=== PATIENT | male | born 1930 | race Caucasian/White ===

== ENCOUNTER 2016-11-16 18:39 | Inpatient (IN) | payer OTHER ==
[~2016-11-16] VITALS: Ht 180.3 cm; Wt 96.5 kg
[~2016-11-16 18:39] MED LIST: ASPEC81 PO; CARV25TA PO; IPRA1AER2 INH; LSX40 PO; LVQ500 PO; MCRK20 PO; NTRGSL/4 UT; PRD20 PO; PRLSR20 PO; SIMV5TAB2 PO
[2016-11-16] MEDS ORDERED: ALBUT/IPRATROP 3MG/0.5MG NEB 3 ML VIAL INH STA (18:57)
[2016-11-16] MEDS ORDERED: WARF5TAB7 PO ×2 (19:03)
--- NOTE | 2016-11-16 19:10 | EMERGENCY ROOM VISIT NOTE ---
History Report prepared by Chaoibjt: Rosalind Duong Under the Supervision of: Dr. Niranjan Quezada M.D. First contact with patient: 18:50 Chief Complaint: NAUSEA Stated Complaint: NAUSEA/COUGH W/YELLOW SPUTUM History of Present Illness The patient is an 86 year old male who presents to the Emergency Room with complaints of worsening breathing difficulties for the past 6 to 7 hours. He was brought to the ED via EMS and is accompanied by his daughter. His daughter reports he has chronic shortness of breath due to a history of COPD, but she called him this evening, around 1700, and he told her his breathing had worsened and he felt very short of breath and nauseous. He does use inhalers at home for his COPD, but he does not wear Oxygen. His inhaler has provided minimal relief. He has also experienced a productive cough with yellow colored sputum. The patient denies any fevers or chest pain. He admits to a history of previous heart failure and notes both of his legs have been swollen in the past few days. He did take his daily water pill earlier today. 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 A total of 10 systems reviewed and were otherwise negative. Past Medical & Surgical Medical Problems: (1) Acute respiratory failure (2) CHF (congestive heart failure) (3) CHF exacerbation (4) Hypertension (5) Mitral valve disorder Family History Heart disease Social History Smoking Status: Former Smoker Alcohol Use: none Drug Use: none Marital Status: Housing Status: lives alone Occupation Status: retired Current/Historical Medications Scheduled Carvedilol (Coreg), 25 MG PO BID Furosemide (Furosemide), 40 MG PO QAM Ipratropium-Albuterol (Combivent Respimat), 1 PUFFS INH QID Nitroglycerin (Nitrostat), 0.4 MG UT PRN Omeprazole (Prilosec), 20 MG PO DAILY Potassium Chloride (Klor-Con M20), 20 MEQ PO QAM Simvastatin (Zocor), 5 MG PO QPM Warfarin Sod (Jantoven), 5 MG PO MWF Warfarin Sod (Jantoven), 2.5 MG PO DIRECTED Allergies Coded Allergies: Aspirin (Verified Adverse Reaction, Intermediate, GI ULCERATION- WHEN TAKEN WITH COUMADIN, 11/16/16) Black Pepper (Verified Adverse Reaction, Mild, 11/16/16) Lisinopril (Verified Adverse Reaction, Mild, 11/16/16) Sulfa Antibiotics (Verified Adverse Reaction, Unknown, "SULFA DRUGS": HAS TOLERATED LASIX IN PAST, 11/16/16) Physical Exam Vital Signs Date Time Temp Pulse Resp B/P (MAP) Pulse Ox O2 Delivery O2 Flow Rate FiO2 11/16/16 20:33 83 20 156/87 96 Nasal Cannula 3.0 11/16/16 19:15 95 Nasal Cannula 3.0 11/16/16 19:15 95 Nasal Cannula 3.0 11/16/16 19:02 81 11/16/16 19:00 37.1 81 24 148/82 91 Room Air Physical Exam GENERAL: Patient is in no acute distress. HEENT: No acute trauma, normocephalic atraumatic, mucous membranes moist, no nasal congestion, no scleral icterus. NECK: No stridor, no adenopathy, no meningismus, trachea is midline. LUNGS: Rhonchi and crackles bilaterally. Increased respiratory rate, mild respiratory distress, breath sounds are equal. Wet cough noted. HEART: Nearly impossible to hear any cardiac tones because of all the extra lung sounds. ABDOMEN: Soft, nontender, bowel sounds positive, no hernias, no peritonitis. EXTREMITIES: No cyanosis, moderate bilateral pedal edema without cellulitis, full range of motion of all the joints without pain or difficulty, no signs for acute trauma. NEUROLOGIC: Oriented x 3, no acute motor or sensory deficits, no focal weakness. SKIN: No rash, no jaundice, no diaphoresis. Medical Decision & Procedures ER Provider Diagnostic Interpretation: X-ray results as stated below per interpretation by me and the radiologist: CHEST ONE VIEW PORTABLE HISTORY: EVALUATE RESPIRATORY DISTRESS.DYSPNEA COMPARISON: Chest 04/17/2016. FINDINGS: The heart remains mildly enlarged. There is mild interstitial pulmonary edema and small bilateral pleural effusions. No pneumothorax. Hazy appearance to the lung bases likely represent the layering pleural fluid. Cardiac valve prosthesis is noted. IMPRESSION: Progression of the mild pulmonary edema and small bilateral pleural effusions. Electronically signed by: Sánchez Licea M.D. 11/16/2016 7:40 PM Laboratory Results 11/16/16 19:40 Red Blood Count 5.52, Mean Corpuscular Volume 92.4, Mean Corpuscular Hemoglobin 31.3, Mean Corpuscular Hemoglobin Concent 33.9, Mean Platelet Volume 9.3, Neutrophils (%) (Auto) 78.8, Lymphocytes (%) (Auto) 8.6, Monocytes (%) (Auto) 9.4, Eosinophils (%) (Auto) 2.3, Basophils (%) (Auto) 0.6, Neutrophils # (Auto) 5.20, Lymphocytes # (Auto) 0.57, Monocytes # (Auto) 0.62, Eosinophils # (Auto) 0.15, Basophils # (Auto) 0.04 11/16/16 19:40 Test 11/16/16 19:25 11/16/16 19:40 Urine Color DK YELLOW Urine Appearance CLEAR (CLEAR) Urine pH 6.5 (4.5-7.5) Urine Specific [place] 1.027 (1.000-1.030) Urine Protein TRACE (NEG) Urine Glucose (UA) NEG (NEG) Urine Ketones NEG (NEG) Urine Occult Blood NEG (NEG) Urine Nitrite NEG (NEG) Urine Bilirubin NEG (NEG) Urine Urobilinogen NEG (NEG) Urine Leukocyte Esterase NEG (NEG) Urine WBC (Auto) 1-5 /hpf (0-5) Urine RBC (Auto) 0-4 /hpf (0-4) Urine Hyaline Casts (Auto) 1-5 /lpf (0-5) Urine Epithelial Cells (Auto) 10-20 /lpf (0-5) Urine Bacteria (Auto) NEG (NEG) White Blood Count 6.60 K/uL (4.8-10.8) Red Blood Count 5.52 M/uL (4.7-6.1) Hemoglobin 17.3 g/dL (14.0-18.0) Hematocrit 51.0 % (42-52) Mean Corpuscular Volume 92.4 fL (80-100) Mean Corpuscular Hemoglobin 31.3 pg (25-34) Mean Corpuscular Hemoglobin Concent 33.9 g/dl (32-36) Platelet Count 193 K/uL (130-400) Mean Platelet Volume 9.3 fL (7.4-10.4) Neutrophils (%) (Auto) 78.8 % Lymphocytes (%) (Auto) 8.6 % Monocytes (%) (Auto) 9.4 % Eosinophils (%) (Auto) 2.3 % Basophils (%) (Auto) 0.6 % Neutrophils # (Auto) 5.20 K/uL (1.4-6.5) Lymphocytes # (Auto) 0.57 K/uL (1.2-3.4) Monocytes # (Auto) 0.62 K/uL (0.11-0.59) Eosinophils # (Auto) 0.15 K/uL (0-0.5) Basophils # (Auto) 0.04 K/uL (0-0.2) RDW Standard Deviation 46.9 fL (36.4-46.3) RDW Coefficient of Variation 13.8 % (11.5-14.5) Immature Granulocyte % (Auto) 0.3 % Immature Granulocyte # (Auto) 0.02 K/uL (0.00-0.02) Prothrombin Time 35.4 SECONDS (9.0-12.0) Prothromb Time International Ratio 3.2 (0.9-1.1) Activated Partial Thromboplast Time 37.4 SECONDS (21.0-31.0) Partial Thromboplastin Ratio 1.4 Anion Gap 7.0 mmol/L (3-11) Est Creatinine Clear Calc Drug Dose 54.2 ml/min Estimated GFR () 63.5 Estimated GFR (Non- 54.8 BUN/Creatinine Ratio 16.1 (10-20) Lactic Acid Level 1.0 mmol/L (0.4-2.0) Calcium Level 7.9 mg/dl (8.5-10.1) Magnesium Level 2.0 mg/dl (1.8-2.4) Total Bilirubin 1.3 mg/dl (0.2-1) Aspartate Amino Transf (AST/SGOT) 40 U/L (15-37) Alanine Aminotransferase (ALT/SGPT) 28 U/L (12-78) Alkaline Phosphatase 82 U/L (45-117) Troponin I 0.020 ng/ml (0-0.045) Pro-B-Type Natriuretic Peptide 1164 pg/ml (0-1800) Total Protein 5.7 gm/dl (6.4-8.2) Albumin 2.4 gm/dl (3.4-5.0) Globulin 3.3 gm/dl (2.5-4.0) Albumin/Globulin Ratio 0.7 (0.9-2) Laboratory results reviewed by me. Medications Administered Medications (Trade) Dose Ordered Sig/Meño Route Start Time Stop Time Status Last Admin Dose Admin Albuterol/ Ipratropium (Duoneb) 3 ml NOW STAT INH 11/16/16 18:57 11/16/16 19:01 DC 11/16/16 19:20 3 ML Furosemide (Lasix Inj) 40 mg NOW STAT IV 11/16/16 19:46 11/16/16 19:47 DC 11/16/16 20:06 40 MG Ceftriaxone Sodium (Rocephin Inj) 1 gm NOW STAT IV 11/16/16 20:01 11/16/16 20:02 DC 11/16/16 20:06 1 GM ECG Indication: SOB/dyspnea Rate (beats per minute): 83 Rhythm: atrial flutter Findings: PVC, no acute ischemic change Change: no significant change (No significant change when compared to EKG from 04/15/2016) ED Course 1853: The patient was evaluated in room B2. A complete history and physical exam was performed. 1856: DuoNeb 3 ml INH. 1945: Lasix 40 mg IV. 2000: Rocephin 1 gm IV. 2019: I reevaluated the patient. He is resting comfortably. I discussed my recommendation that he remain in the hospital for further evaluation and management and he and his daughter verbalized complete understanding and agreement. 2044: I discussed the patients case with Dr. Rios, [facility] [place] Hospitalist. The patient will be further evaluated. Medical Decision Medication Reconciliation: I attest that I have personally reviewed the patient' s current medication list. Blood Pressure Screening: Patient was found to have a mildly elevated blood pressure and was referred to their primary doctor for recheck and further treatment. The differential diagnoses considered include pneumonia, bronchitis, exacerbation of COPD, anemia, electrolyte imbalance, CHF and cardiac ischemia. There is no leukocytosis or concerning anemia. Renal panel testing does not show renal failure or significant electrolyte abnormality. EKG shows atrial flutter, no acute ischemia. Cardiac enzyme testing times one is not consistent with acute cardiac injury. BNP is not elevated. Chest x-ray does show CHF, there was no pneumonia or pneumothorax. Blood cultures are pending. INR was elevated consistent with his Coumadin use. Urinalysis does not show infection. Lactic acid level is not elevated making sepsis less likely. The patient was in some respiratory distress when he first arrived. He had crackles consistent with heart failure. He received a DuoNeb because of his underlying COPD, he was given IV Lasix, he received IV ceftriaxone as antibiotic coverage. The patient is feeling improved, he has diuresed. Given his age, given his respiratory distress, given his presentation, admission/observation is warranted. He requires further diuresis and care for his COPD. I did speak to the patient and to case management. The on-call hospitalist was consulted. I spoke to the patient's daughter as well, she was at the bedside. Consults Time Called: 2023 Consulting Physician: Dr. Rios, [facility] [place] Hospitalist Returned Call: 2044 I discussed the patients case with Dr. Rios, [facility] [place] Hospitalist. The patient will be further evaluated. Impression Primary Impression: SOB (shortness of breath) Additional Impressions: CHF (congestive heart failure) COPD exacerbation Scribe Attestation The scribe's documentation has been prepared under my direction and personally reviewed by me in its entirety. I confirm that the note above accurately reflects all work, treatment, procedures, and medical decision making performed by me. Departure Information Dispostion Being Evaluated By Hospitalist Sugey Franklin M.D. (PCP) Patient Instructions My [facility] Problem Qualifiers
[2016-11-16 19:41] LABS: URINE APPEARANCE CLEAR (CLEAR); URINE BILIRUBIN NEG (NEG); URINE COLOR DK YELLOW; URINE NITRITE NEG (NEG); URINE PH 6.5 (4.5-7.5); URINE SPECIFIC GRAVITY 1.027 (1.000-1.030); UROBILINOGEN NEG (NEG); ZZUR CULT IF INDIC CLEAN CATCH NO
--- NOTE | 2016-11-16 19:41 | DIAGNOSTIC IMAGING REPORT ---
CHEST ONE VIEW PORTABLE HISTORY: EVALUATE RESPIRATORY DISTRESS.DYSPNEA COMPARISON: Chest 04/17/2016. FINDINGS: The heart remains mildly enlarged. There is mild interstitial pulmonary edema and small bilateral pleural effusions. No pneumothorax. Hazy appearance to the lung bases likely represent the layering pleural fluid. Cardiac valve prosthesis is noted. IMPRESSION: Progression of the mild pulmonary edema and small bilateral pleural effusions. Electronically signed by: Sánchez Licea M.D. 11/16/2016 7:40 PM Dictated Date/Time: 11/16/2016 7:39 PM
[2016-11-16 19:42] LABS: MANUAL MICROSCOPIC REQUIRED? NO; REVIEW REQ? NO
[2016-11-16] MEDS ORDERED: FUROSEMIDE 40 MG/4 ML VIAL IV STA (19:46)
[2016-11-16 19:55] LABS: BASO % 0.6 %; BASO ABS # 0.04 K/uL (0-0.2); COMPLETE YES; EOS % 2.3 %; IG% 0.3 %; LYMPH % 8.6 %; LYMPH ABS # 0.57 K/uL (1.2-3.4); MEAN CELL VOLUME 92.4 fL (80-100); MEAN CORPUSCULAR HEMOGLOBIN 31.3 pg (25-34); MEAN CORPUSCULAR HGB CONC 33.9 g/dl (32-36); MEAN PLATELET VOLUME 9.3 fL (7.4-10.4); MONO % 9.4 %; NEUT % 78.8 %; PLATELET COUNT 193 K/uL (130-400); RED BLOOD COUNT 5.52 M/uL (4.7-6.1)
[2016-11-16] MEDS ORDERED: CEFTRIAXONE SOD INJ 1 GM ADDVIAL IV STA (20:01)
[2016-11-16 20:06] LABS: INR 3.2 (0.9-1.1); PARTIAL THROMBOPLASTIN RATIO 1.4; PROTHROMBIN TIME (PATIENT) 35.4 SECONDS (9.0-12.0)
[2016-11-16 20:11] LABS: BUN/CREATININE RATIO 16.1 (10-20); CALCIUM 7.9 mg/dl (8.5-10.1); CREATININE 1.2 mg/dl (0.60-1.40); POTASSIUM 5.3 mmol/L (3.5-5.1)
[2016-11-16 20:16] LABS: ALB/GLOB RATIO 0.7 (0.9-2)
[2016-11-16] MEDS ORDERED: ZOLPIDEM TARTRATE 5 MG TAB PO PRN (22:00)
[2016-11-16] MEDS ORDERED: ACETAMINOPHEN 325 MG TAB PO PRN (22:00)
[2016-11-16] MEDS ORDERED: NITROGLYCERIN 0.4 MG SL PER TAB CHARGE UT SCH (22:00)
--- NOTE | 2016-11-16 22:00 | History and Physical ---
History & Physical Date & Time of Service: Nov 16, 2016 at 21:59 Chief Complaint: Nausea/Cough W/Yellow Sputum Primary Care Physician: Sugey Fields M.D. History of Present Illness Source: patient The patient is a 86-year-old male presents emergency department with acute onset of worsening shortness of breath over the past 7 hours prior to arrival. His daughter reports that his chronic shortness of breath secondary to COPD, but he reported to her that his breathing was worse and he felt nauseous around 1700 hrs. this evening. He has had a cough productive of yellow sputum. He has noted worsening swelling was legs in the past few days, and has been diagnosed with congestive heart failure in the past. He did take his Lasix 40 mg this morning as directed. He has not had any recent travel, or any sick exposures. Past Medical/Surgical History Medical Problems: (1) CHF (congestive heart failure) Status: Chronic (2) Hypertension Status: Chronic (3) Mitral valve disorder Status: Chronic Family History Heart disease Social History Smoking Status: Former Smoker Smokeless Tobacco Use: No Drug Use: none Marital Status: Housing status: lives alone Occupational Status: retired Immunizations History of Influenza Vaccine: Yes Influenza Vaccine Date: Apr 03, 2012 History of Tetanus Vaccine?: HAD IN 2011 History of Pneumococcal: HAD IN THE PAST History of Hepatitis B Vaccine: Unknown Multi-Drug Resistant Organisms History of MDRO: No Allergies Coded Allergies: Aspirin (Verified Adverse Reaction, Intermediate, GI ULCERATION- WHEN TAKEN WITH COUMADIN, 11/16/16) Black Pepper (Verified Adverse Reaction, Mild, 11/16/16) Lisinopril (Verified Adverse Reaction, Mild, 11/16/16) Sulfa Antibiotics (Verified Adverse Reaction, Unknown, "SULFA DRUGS": HAS TOLERATED LASIX IN PAST, 11/16/16) Home Medications Scheduled Carvedilol (Coreg), 25 MG PO BID Furosemide (Furosemide), 40 MG PO QAM Ipratropium-Albuterol (Combivent Respimat), 1 PUFFS INH QID Nitroglycerin (Nitrostat), 0.4 MG UT PRN Omeprazole (Prilosec), 20 MG PO DAILY Potassium Chloride (Klor-Con M20), 20 MEQ PO QAM Simvastatin (Zocor), 5 MG PO QPM Warfarin Sod (Jantoven), 5 MG PO MWF Warfarin Sod (Jantoven), 2.5 MG PO DIRECTED Review of Systems The patient denies chest pain, palpitations, sore throat, fevers, chills, sweats , weight change, vomiting, abdominal pain, pelvic pain, blood in urine or stool , dysuria, urinary frequency or urgency, lightheadedness, dizziness, headache, memory loss, rash, abnormal bruising or bleeding, imbalance, focal weakness, numbness or tingling in arms or legs, arthralgias or myalgias, back or neck pain , night sweats. The review of systems is otherwise negative other than for that already noted above, and at least 10 systems have been reviewed. Physical Exam Vital Signs Date Time Temp Pulse Resp B/P (MAP) Pulse Ox O2 Delivery O2 Flow Rate FiO2 11/16/16 20:33 83 20 156/87 96 Nasal Cannula 3.0 11/16/16 19:15 95 Nasal Cannula 3.0 11/16/16 19:15 95 Nasal Cannula 3.0 11/16/16 19:02 81 11/16/16 19:00 37.1 81 24 148/82 91 Room Air The patient is awake, well-developed and adequately nourished, alert and oriented 3, normocephalic and atraumatic, lying in bed and in no acute distress. HEENT--PERRL, EOMI, mucous membranes and oropharynx dry. Neck--supple, no JVD or bruits, thyroid normal, trachea midline, no adenopathy. Heart--normal S1 and S2, no extra beats, no murmurs, rubs or gallops. Lungs--decreased breath sounds at the bases bilaterally, no respiratory distress , no accessory muscle use. Abdomen--normal bowel sounds and soft, nontender and nondistended, no hernias or masses, no organomegaly. Extremities--no cyanosis, clubbing. There is bilaterally pretibially 1+ pitting Edema. There are good distal pulses b/l. Dermatologic--normal skin turgor, normal color, warm and dry, no abnormal lymph nodes, no rash. Neurologic--cranial nerves II through XII grossly intact. Rheumatologic--normal range of motion, nontender, muscles and joints. Psychiatric--normal affect. Diagnostics Laboratory Results Results Past 24 Hours Test 11/16/16 19:25 11/16/16 19:40 Range/Units Urine Color DK YELLOW Urine Appearance CLEAR CLEAR Urine pH 6.5 4.5-7.5 Urine Specific Uriah 1.027 1.000-1.030 Urine Protein TRACE NEG Urine Glucose (UA) NEG NEG Urine Ketones NEG NEG Urine Occult Blood NEG NEG Urine Nitrite NEG NEG Urine Bilirubin NEG NEG Urine Urobilinogen NEG NEG Urine Leukocyte Esterase NEG NEG Urine WBC (Auto) 1-5 0-5 /hpf Urine RBC (Auto) 0-4 0-4 /hpf Urine Hyaline Casts (Auto) 1-5 0-5 /lpf Urine Epithelial Cells (Auto) 10-20 0-5 /lpf Urine Bacteria (Auto) NEG NEG White Blood Count 6.60 4.8-10.8 K/uL Red Blood Count 5.52 4.7-6.1 M/uL Hemoglobin 17.3 14.0-18.0 g/dL Hematocrit 51.0 42-52 % Mean Corpuscular Volume 92.4 80-100 fL Mean Corpuscular Hemoglobin 31.3 25-34 pg Mean Corpuscular Hemoglobin Concent 33.9 32-36 g/dl Platelet Count 193 130-400 K/uL Mean Platelet Volume 9.3 7.4-10.4 fL Neutrophils (%) (Auto) 78.8 % Lymphocytes (%) (Auto) 8.6 % Monocytes (%) (Auto) 9.4 % Eosinophils (%) (Auto) 2.3 % Basophils (%) (Auto) 0.6 % Neutrophils # (Auto) 5.20 1.4-6.5 K/uL Lymphocytes # (Auto) 0.57 1.2-3.4 K/uL Monocytes # (Auto) 0.62 0.11-0.59 K/uL Eosinophils # (Auto) 0.15 0-0.5 K/uL Basophils # (Auto) 0.04 0-0.2 K/uL RDW Standard Deviation 46.9 36.4-46.3 fL RDW Coefficient of Variation 13.8 11.5-14.5 % Immature Granulocyte % (Auto) 0.3 % Immature Granulocyte # (Auto) 0.02 0.00-0.02 K/uL Prothrombin Time 35.4 9.0-12.0 SECONDS Prothromb Time International Ratio 3.2 0.9-1.1 Activated Partial Thromboplast Time 37.4 21.0-31.0 SECONDS Partial Thromboplastin Ratio 1.4 Sodium Level 144 136-145 mmol/L Potassium Level 5.3 3.5-5.1 mmol/L Chloride Level 112 98-107 mmol/L Carbon Dioxide Level 25 21-32 mmol/L Anion Gap 7.0 3-11 mmol/L Blood Urea Nitrogen 19 7-18 mg/dl Creatinine 1.20 0.60-1.40 mg/dl Est Creatinine Clear Calc Drug Dose 54.2 ml/min Estimated GFR () 63.5 Estimated GFR (Non- 54.8 BUN/Creatinine Ratio 16.1 10-20 Random Glucose 96 70-99 mg/dl Lactic Acid Level 1.0 0.4-2.0 mmol/L Calcium Level 7.9 8.5-10.1 mg/dl Magnesium Level 2.0 1.8-2.4 mg/dl Total Bilirubin 1.3 0.2-1 mg/dl Aspartate Amino Transf (AST/SGOT) 40 15-37 U/L Alanine Aminotransferase (ALT/SGPT) 28 12-78 U/L Alkaline Phosphatase 82 45-117 U/L Troponin I 0.020 0-0.045 ng/ml Pro-B-Type Natriuretic Peptide 1164 0-1800 pg/ml Total Protein 5.7 6.4-8.2 gm/dl Albumin 2.4 3.4-5.0 gm/dl Globulin 3.3 2.5-4.0 gm/dl Albumin/Globulin Ratio 0.7 0.9-2 Microbiology Results 11/16/16 Blood Culture, Received Pending 11/16/16 Blood Culture, Received Pending Diagnostic Radiology Patient Name: GENE WOLFE Unit Number: [id number] Dictated: 11/16/161938 Transcribed: 11/16/161938 [employer] Printed Date/Time: [~ rep prt dt]/[~ rep prt tm] [~ rep ct labl] - [~ rep ct ivnm] [facility] [place] [place] [address] Dictated: 11/16/161938 Transcribed: 11/16/161938 [employer] Printed Date/Time: [~ rep prt dt]/[~ rep prt tm] [~ rep ct labl] - [~ rep ct ivnm] [~ rep ct add3]] CHEST ONE VIEW PORTABLE HISTORY: EVALUATE RESPIRATORY DISTRESS.DYSPNEA COMPARISON: Chest 04/17/2016. FINDINGS: The heart remains mildly enlarged. There is mild interstitial pulmonary edema and small bilateral pleural effusions. No pneumothorax. Hazy appearance to the lung bases likely represent the layering pleural fluid. Cardiac valve prosthesis is noted. IMPRESSION: Progression of the mild pulmonary edema and small bilateral pleural effusions. Electronically signed by: Sánchez Licea M.D. 11/16/2016 7:40 PM Dictated Date/Time: 11/16/2016 7:39 PM The status of this report is Signed. Draft = Not yet reviewed or approved by Radiologist. Signed = Reviewed and approved by Radiologist. <AttendingPhy></AttendingPhy> <FamilyPhy>Sugey Fields M.D.</FamilyPhy> <PrimaryPhy>Sugey Fields M.D.</PrimaryPhy> <UnitNumber>[id number]</ UnitNumber> <VisitNumber>[id number]</VisitNumber> <PatientName>GENE WOLFE </PatientName> <DateOfBirth>1930</DateOfBirth> <Location>[facility]</Location> <ServiceDate>11/16/16</ServiceDate> <MNE>ESINDI</MNE> <OrderingPhy>Niranjan Quezada M.D.</OrderingPhy> <OrderingPhyMNE>f rep ord dr marrero</OrderingPhyMNE> < DictatingPhyMNE>f rep dict dr marrero</DictatingPhyMNE> <CCListMNE>f rep ct mne</ CCListMNE> <AdmittingPhyMNE>f pt admit dr marrero</AdmittingPhyMNE> <AttendingPhyMNE >f pt attend dr marrero</AttendingPhyMNE> <ConsultingPhyMNE>f pt consult dr marrero</ConsultingPhyMNE> <FamilyPhyMNE>f pt fam dr marrero</FamilyPhyMNE> <OtherPhyMNE>f pt other dr marrero</OtherPhyMNE> < PrimaryPhyMNE>f pt prim care dr marrero</PrimaryPhyMNE> <ReferringPhyMNE>f pt referring dr marrero</ReferringPhyMNE> EKG EKG shows atrial flutter with variable block at 83 bpm, PVCs or aberrantly conducted beats, no change noted compared to 04/15/2016. Impression Assessment and Plan Right lower lobe pneumonia--the patient will be placed on ceftriaxone 1 g IV daily, levofloxacin 500 mg IV every 24 hours, guaifenesin extended release 600 mg by mouth twice a day, Solu-Medrol 30 mg IV every 8 hours and Xopenex/ Atrovent nebulizer every 6 hours while awake and every 2 hours when necessary. Bilateral pleural effusions/CHF/hypertension/mitral valve disorder/atrial flutter-continue carvedilol 25 mg by mouth twice a day, furosemide 40 mg by mouth every morning, potassium chloride 20 mEq by mouth every morning. Present INR is 3.2. We will resume warfarin at 3 mg by mouth daily on November 18, allowing for some increase in INR due to antibiotics. Hyperlipidemia--continue simvastatin 5 mg by mouth every afternoon. GERD--change omeprazole 20 mg by mouth daily to pantoprazole 40 mg by mouth daily. Level of Care Telemetry Advanced Directives Existing Advance Directive: No Existing Living Will: No Existing Power of Organ Grinder: No Resuscitation Status FULL RESUSCITATION VTE Prophylaxis VTE Risk Assessment Done? Y/N: Yes Risk Level: Moderate Given or contraindicated: Warfarin (Coumadin)
[2016-11-16] MEDS ORDERED: LEVALBUTEROL 1.25MG/0.5ML NEB INH PRN (22:30)
[2016-11-16] MEDS ORDERED: IPRATROPIUM BROMIDE NEB SOLN 0.02% 2.5 ML VIAL INH PRN (22:30)
[2016-11-16 23:02] VITALS: BP 157/80; PULSE 71; TEMP 36.7; O2SAT 96; Ht 180.3 cm; Wt 96.5 kg
[2016-11-16] MEDS: METHYLPREDNISOLONE IV 30 MG in SYRINGE 0 ML IV SCH (23:37)
[2016-11-17] VITALS (10 sets, daily range): BP systolic 117–146; BP diastolic 65–75; PULSE 61–84; TEMP 36.8–37.5; O2SAT 94–97
[2016-11-17] MEDS ORDERED: LEVOFLOXACIN / D5W 500 MG in PREMIXED IN D5W 100 ML IV SCH
[2016-11-17] MEDS ORDERED: LEVALBUTEROL/IPRATROPIUM NEB INH SCH (03:00)
[2016-11-17] MEDS: IPRATROPIUM BROMIDE NEB SOLN 0.02% 2.5 ML VIAL INH SCH ×4 (03:25→18:41)
[2016-11-17] MEDS: LEVALBUTEROL 1.25MG/0.5ML NEB INH SCH ×4 (03:25→18:41)
[2016-11-17 05:58] LABS: BASO % 0.4 %; BASO ABS # 0.02 K/uL (0-0.2); COMPLETE YES; HEMATOCRIT 46.9 % (42-52); IG% 0.4 %; LYMPH % 10.5 %; LYMPH ABS # 0.58 K/uL (1.2-3.4); MEAN CELL VOLUME 91.6 fL (80-100); MEAN CORPUSCULAR HEMOGLOBIN 31.4 pg (25-34); MEAN CORPUSCULAR HGB CONC 34.3 g/dl (32-36); MEAN PLATELET VOLUME 9.2 fL (7.4-10.4); MONO % 4.4 %; NEUT % 84.3 %; PLATELET COUNT 151 K/uL (130-400); RED BLOOD COUNT 5.12 M/uL (4.7-6.1); WHITE BLOOD COUNT 5.51 K/uL (4.8-10.8)
[2016-11-17 06:14] LABS: INR 2.9 (0.9-1.1); PARTIAL THROMBOPLASTIN RATIO 1.5
[2016-11-17] MEDS: METHYLPREDNISOLONE IV 30 MG in SYRINGE 0 ML IV SCH ×2 (06:42→14:26)
[2016-11-17 06:43] LABS: BUN/CREATININE RATIO 20.3 (10-20); CALCIUM 7.7 mg/dl (8.5-10.1); POTASSIUM 3.9 mmol/L (3.5-5.1)
[2016-11-17] MEDS: GUAIFENESIN 600 MG TABCR PO SCH ×2 (08:01→20:09)
[2016-11-17] MEDS: PANTOprazole SOD 40 MG TAB PO SCH (08:01)
[2016-11-17] MEDS: POTASSIUM CHLORIDE 20 MEQ TABCR PO SCH ×2 (08:02→10:13)
[2016-11-17] MEDS: CARVEDILOL 25 MG TAB PO SCH ×2 (08:03→20:09)
[2016-11-17] MEDS: FUROSEMIDE 40 MG TAB PO SCH (08:04)
--- NOTE | 2016-11-17 08:34 | Family Medicine Progress Note ---
Progress Note Date of Service Nov 17, 2016. Subjective Pt evaluation today including: conversation w/ patient, physical exam, chart review Pain: none PO Intake: good Voiding: no voiding problems Patient with no acute events overnight Was admitted for 1 day history of shortness of breath, dry cough and leg swelling that has been occurring for several months He is receiving AB and received a dose of lasix in the ED yesterday. He says that his shortness of breath, leg swelling and cough have all improved and he is feeling much better. He denies any fevers, chills, night sweats, chest pain, palpitations, diarrhea, constipation, abdominal pain, nausea, vomiting I question if this is a bilateral pneumonia as patient has never been febrile and has not had an elevated WCC. I feel like this is more likely to be a mix of worsening CHF or a mild COPD exacerbation. Additional Comments: please see above for ROS Medications Current Inpatient Medications Medications (Trade) Dose Ordered Sig/Meño Route Start Time Stop Time Status Last Admin Dose Admin Acetaminophen (Tylenol Tab) 650 mg Q4H PRN PO 11/16/16 22:00 12/16/16 21:59 Zolpidem Tartrate (Ambien Tab) 5 mg HSZ PRN PO 11/16/16 22:00 12/16/16 21:59 Carvedilol (Coreg Tab) 25 mg BID PO 11/17/16 09:00 12/17/16 08:59 11/17/16 08:03 25 MG Furosemide (Lasix Tab) 40 mg QAM PO 11/17/16 09:00 12/17/16 08:59 11/17/16 08:04 40 MG Nitroglycerin (Nitrostat Tab) 0.4 mg PRN UT 11/16/16 22:00 12/16/16 21:59 Potassium Chloride (Klor-Con Tab) 20 meq QAM PO 11/17/16 09:00 12/17/16 08:59 Simvastatin (Zocor Tab) 5 mg QPM PO 11/17/16 21:00 12/17/16 20:59 Pantoprazole Sodium (Protonix Tab) 40 mg QAM PO 11/17/16 09:00 12/17/16 08:59 11/17/16 08:01 40 MG Methylprednisolone Sodium Succinate 30 mg/Syringe 0.48 ml @ 1.5 mls/min Q8H IV 11/16/16 22:00 12/16/16 21:59 11/17/16 06:42 1.5 MLS/MIN Ceftriaxone Sodium 1 gm/ Dextrose 50 ml @ 100 mls/hr Q24H IV 11/17/16 20:00 11/22/16 20:29 Levofloxacin 500 mg/Prmx 100 ml @ 100 mls/hr Q24H IV 11/17/16 00:00 11/24/16 00:00 11/16/16 23:37 100 MLS/HR Guaifenesin (Mucinex Contr Rel Tab) 600 mg Q12 PO 11/17/16 09:00 12/17/16 08:59 11/17/16 08:01 600 MG Ondansetron HCl (Zofran Inj) 4 mg Q6H PRN IV 11/16/16 22:00 12/16/16 21:59 Ipratropium [place] (Atrovent 0.02% 0.5MG/2.5ML Neb) 0.5 mg Q6R INH 11/17/16 03:00 12/17/16 02:59 11/17/16 07:19 0.5 MG Levalbuterol (Xopenex 1.25MG/ 0.5ML Neb) 1.25 mg Q6R INH 11/17/16 03:00 12/17/16 02:59 11/17/16 07:19 1.25 MG Ipratropium [place] (Atrovent 0.02% 0.5MG/2.5ML Neb) 0.5 mg Q2H PRN INH 11/16/16 22:30 12/16/16 22:29 Levalbuterol (Xopenex 1.25MG/ 0.5ML Neb) 1.25 mg Q2H PRN INH 11/16/16 22:30 12/16/16 22:29 Warfarin Sodium (Coumadin Tab) 3 mg DAILY@16 PO 11/17/16 16:00 12/17/16 15:59 Future Hold Objective Vital Signs Date Time Temp Pulse Resp B/P (MAP) Pulse Ox O2 Delivery O2 Flow Rate FiO2 11/17/16 07:19 72 16 97 Nasal Cannula 2.0 11/17/16 07:10 37.1 76 16 117/74 (88) 94 Nasal Cannula 3.0 11/17/16 04:14 37.5 84 18 122/70 (87) 94 11/17/16 04:00 Nasal Cannula 2.0 Humidified Oxygen 11/17/16 03:25 71 18 95 Nasal Cannula 2.0 11/16/16 23:59 Nasal Cannula 2.0 Humidified Oxygen 11/16/16 23:02 36.7 71 20 157/80 96 Nasal Cannula 3.0 11/16/16 22:41 91 20 193/90 95 11/16/16 22:30 91 20 193/90 95 Room Air 11/16/16 20:33 83 20 156/87 96 Nasal Cannula 3.0 11/16/16 19:15 95 Nasal Cannula 3.0 11/16/16 19:15 95 Nasal Cannula 3.0 11/16/16 19:02 81 11/16/16 19:00 37.1 81 24 148/82 91 Room Air Physical Exam General Appearance: WD/WN, no apparent distress Eyes: normal inspection, PERRL, EOMI ENT: hearing grossly normal, pharynx normal Neck: no adenopathy, no JVD, trachea midline Respiratory/Chest: lungs clear, no respiratory distress, no accessory muscle use Cardiovascular: no murmur, + irregularly irregular Abdomen: normal bowel sounds, soft, + pertinent finding (midline abdominal scar ) Extremities: non-tender, no calf tenderness, normal capillary refill, + pertinent finding (pitting edema up to the mid [place] bilaterally, lower legs bilaterally with tough skin bilaterally and fungal toe infection bilaterally) Neurologic/Psychiatric: alert, normal mood/affect, oriented x 3 Laboratory Results Results Past 24 Hours Test 11/16/16 19:25 11/16/16 19:40 11/17/16 05:40 11/17/16 14:56 Range/Units Urine Color DK YELLOW Urine Appearance CLEAR CLEAR Urine pH 6.5 4.5-7.5 Urine Specific [place] 1.027 1.000-1.030 Urine Protein TRACE NEG Urine Glucose (UA) NEG NEG Urine Ketones NEG NEG Urine Occult Blood NEG NEG Urine Nitrite NEG NEG Urine Bilirubin NEG NEG Urine Urobilinogen NEG NEG Urine Leukocyte Esterase NEG NEG Urine WBC (Auto) 1-5 0-5 /hpf Urine RBC (Auto) 0-4 0-4 /hpf Urine Hyaline Casts (Auto) 1-5 0-5 /lpf Urine Epithelial Cells (Auto) 10-20 0-5 /lpf Urine Bacteria (Auto) NEG NEG White Blood Count 6.60 5.51 4.8-10.8 K/uL Red Blood Count 5.52 5.12 4.7-6.1 M/uL Hemoglobin 17.3 16.1 14.0-18.0 g/dL Hematocrit 51.0 46.9 42-52 % Mean Corpuscular Volume 92.4 91.6 80-100 fL Mean Corpuscular Hemoglobin 31.3 31.4 25-34 pg Mean Corpuscular Hemoglobin Concent 33.9 34.3 32-36 g/dl Platelet Count 193 151 130-400 K/uL Mean Platelet Volume 9.3 9.2 7.4-10.4 fL Neutrophils (%) (Auto) 78.8 84.3 % Lymphocytes (%) (Auto) 8.6 10.5 % Monocytes (%) (Auto) 9.4 4.4 % Eosinophils (%) (Auto) 2.3 0.0 % Basophils (%) (Auto) 0.6 0.4 % Neutrophils # (Auto) 5.20 4.65 1.4-6.5 K/uL Lymphocytes # (Auto) 0.57 0.58 1.2-3.4 K/uL Monocytes # (Auto) 0.62 0.24 0.11-0.59 K/uL Eosinophils # (Auto) 0.15 0.00 0-0.5 K/uL Basophils # (Auto) 0.04 0.02 0-0.2 K/uL RDW Standard Deviation 46.9 46.6 36.4-46.3 fL RDW Coefficient of Variation 13.8 13.9 11.5-14.5 % Immature Granulocyte % (Auto) 0.3 0.4 % Immature Granulocyte # (Auto) 0.02 0.02 0.00-0.02 K/uL Prothrombin Time 35.4 32.0 9.0-12.0 SECONDS Prothromb Time International Ratio 3.2 2.9 0.9-1.1 Activated Partial Thromboplast Time 37.4 39.1 21.0-31.0 SECONDS Partial Thromboplastin Ratio 1.4 1.5 Sodium Level 144 144 136-145 mmol/L Potassium Level 5.3 3.9 3.5-5.1 mmol/L Chloride Level 112 111 98-107 mmol/L Carbon Dioxide Level 25 25 21-32 mmol/L Anion Gap 7.0 8.0 3-11 mmol/L Blood Urea Nitrogen 19 20 7-18 mg/dl Creatinine 1.20 1.00 0.60-1.40 mg/dl Est Creatinine Clear Calc Drug Dose 54.2 63.9 ml/min Estimated GFR () 63.5 79.2 Estimated GFR (Non- 54.8 68.3 BUN/Creatinine Ratio 16.1 20.3 10-20 Random Glucose 96 109 70-99 mg/dl Lactic Acid Level 1.0 0.4-2.0 mmol/L Calcium Level 7.9 7.7 8.5-10.1 mg/dl Magnesium Level 2.0 2.0 1.8-2.4 mg/dl Total Bilirubin 1.3 0.2-1 mg/dl Aspartate Amino Transf (AST/SGOT) 40 15-37 U/L Alanine Aminotransferase (ALT/SGPT) 28 12-78 U/L Alkaline Phosphatase 82 45-117 U/L Troponin I 0.020 0-0.045 ng/ml Pro-B-Type Natriuretic Peptide 1164 0-1800 pg/ml Total Protein 5.7 6.4-8.2 gm/dl Albumin 2.4 3.4-5.0 gm/dl Globulin 3.3 2.5-4.0 gm/dl Albumin/Globulin Ratio 0.7 0.9-2 Test 11/17/16 15:25 Range/Units Troponin I 0.062 0-0.045 ng/ml Microbiology Results 11/16/16 Blood Culture, Received Pending 11/16/16 Blood Culture, Received Pending Assessment and Plan The patient is a 86-year-old male with a PMH of CABG, COPD, Atrial flutter, HTN and Hyperlipidemia who presented to the emergency department with acute onset of worsening shortness of breath over the past 7 hours prior to arrival. Patient has remained afebrile and has no WCC. Therefore unlikely to be pneumonia and we stopped antibiotics and steroids. Most likely a CHF exacerbation due to clinic improvement so quickly Resident Physician Supervision Note: I interviewed and examined the patient. Discussed with Dr. Mcguire and agree with findings and plan as documented in the note. Any exceptions or clarifications are listed here: None Documented By: Robert Gina Congestive Heart Failure - CXR showed bilateral pleural effusions - Given 40mg IV furosemide - Continue carvedilol and furosemide PO, started valsartan 80mg daily - Monitor I/O's - May need echo - EKG showed T wave inversions--> troponins ordered, will follow - potassium chloride 20meq by mouth every morning ---appears that CHF was the main reason for admission - cautiously stopping abx and steroids and following Atrial flutter - continue carvedilol 25 mg bid - Continue warfarin 3mg - INR 2.9, continue to monitor -rate controlled continue anticoagulation CAD with EKG changes - EKG showed T wave inversion--> troponins ordered, will follow - patient currently asymptomatic - atorvastatin 40mg started (will check lipid panel) - started clopidogrel -totally asymptomatic suspect it's all downstream small vessel either baseline or demand ischemia from the hypoxia from current CHF. O2, beta ivy, anticoagulated, add plavix since can't take asa, no urgent need for cath but with dynamic EKG changes and now sl trop will ask opinion on cath ?soon, no sx no need for morphine right now; add ARB, continue prn nitrate, upgrade statin to atorva 40mg for better plaque stabilization, check lipids to better assess needed dose COPD - continue atrovent and xopenex - O2 via nasal cannula Hyperlipidemia - atorvastatin 40mg PO - will check lipids GERD - pantoprazole 40mg PO Dispo - PT/OT Full Code otherwise as above Continued [facility] stay due to: multiple IV medications needed
[2016-11-17] MEDS ORDERED: CLOPIDOGREL BISULFATE 75 MG TAB PO ONE (16:00)
[2016-11-17] MEDS ORDERED: VALSARTAN 80 MG TAB PO ONE (16:00)
[2016-11-17] MEDS: ONDANSETRON INJ 2 MG/ML 2 ML VIAL IV PRN ×2 (17:38→23:01)
[2016-11-17] MEDS ORDERED: CEFTRIAXONE SOD INJ 1 GM in DEXTROSE 5% ADD-VANTAGE 50ML 50 ML IV SCH (20:00)
[2016-11-17] MEDS ORDERED: SIMVASTATIN 5 MG TAB PO SCH (21:00)
[2016-11-18] VITALS (11 sets, daily range): BP systolic 106–131; BP diastolic 67–79; PULSE 58–78; TEMP 36.2–36.6; O2SAT 90–98
[2016-11-18] MEDS: LEVALBUTEROL 1.25MG/0.5ML NEB INH SCH ×2 (02:14→07:35)
[2016-11-18] MEDS: IPRATROPIUM BROMIDE NEB SOLN 0.02% 2.5 ML VIAL INH SCH ×2 (02:14→07:35)
[2016-11-18 04:36] LABS: COMPLETE YES; HEMATOCRIT 47.2 % (42-52); IG% 0.3 %; LYMPH % 7.6 %; MEAN CELL VOLUME 91.3 fL (80-100); MEAN CORPUSCULAR HEMOGLOBIN 31.1 pg (25-34); MEAN CORPUSCULAR HGB CONC 34.1 g/dl (32-36); MEAN PLATELET VOLUME 9.3 fL (7.4-10.4); MONO % 7.3 %; NEUT % 84.8 %; PLATELET COUNT 161 K/uL (130-400); RED BLOOD COUNT 5.17 M/uL (4.7-6.1)
[2016-11-18 04:47] LABS: INR 2.2 (0.9-1.1); PROTHROMBIN TIME (PATIENT) 24.6 SECONDS (9.0-12.0)
[2016-11-18 04:53] LABS: BUN/CREATININE RATIO 25.8 (10-20); CALCIUM 7.4 mg/dl (8.5-10.1); POTASSIUM 4.3 mmol/L (3.5-5.1)
[2016-11-18 05:03] LABS: CHOLESTEROL/HDL RATIO 2.9
[2016-11-18] MEDS: GUAIFENESIN 600 MG TABCR PO SCH ×2 (07:49→20:02)
[2016-11-18] MEDS: PANTOprazole SOD 40 MG TAB PO SCH (07:49)
[2016-11-18] MEDS: CARVEDILOL 25 MG TAB PO SCH ×2 (07:49→20:03)
[2016-11-18] MEDS: FUROSEMIDE 40 MG TAB PO SCH (07:50)
[2016-11-18] MEDS: ATORVASTATIN 40 MG TAB PO SCH (07:51)
[2016-11-18] MEDS: POTASSIUM CHLORIDE 20 MEQ TABCR PO SCH (07:51)
[2016-11-18] MEDS: VALSARTAN 80 MG TAB PO SCH (07:52)
[2016-11-18] MEDS: CLOPIDOGREL BISULFATE 75 MG TAB PO SCH (09:00)
--- NOTE | 2016-11-18 14:28 | CARDIOLOGY CONSULTATION ---
DATE OF CONSULTATION: 11/18/2016 REQUESTING PHYSICIAN: Dr. Robert Fuentes. BOLT HEADER: Dustin Gore DO, [facility] for Dr. Santiago Hernandez of [facility]. REASON FOR CONSULTATION: Mild troponin elevation with mild T-wave inversions. Dear Robert: Thank you for requesting cardiology consultation on Mr. Mckinney with regards to his admission for congestive heart failure. As you know, he complained of increasing shortness of breath, abdominal distention and worsening of his chronic lower extremity edema. He felt appreciably short of breath. He denies any chest pain, chest pressure, or chest heaviness before this. He denied any PND or orthopnea. He has been weighing himself on a daily basis and notes that his weight was within a pound or 2 of his normal dry weight. He denies any palpitations, fluttering, skips, or feeling his heart racing. His previous admission was last April for heart failure. He actually was sleeping in a chair. He denies any fevers, chills, sweats, bleeding, bruising, dark stools, or black stools. His appetite and weight have been stable and he denies a decline in his appetite. He does live in a trailer. There are 4 steps to get in. he has no difficulty doing that. He still lives independently. He cooks his own food. He does grocery shop, although he sits in a cart and elects to sit and an electric cart when he does shop and when he returns home. His neighbor brings his groceries in for him. He denies any chest pain or chest pressure with activity over the last couple of weeks and for the most part outside of recent shortness of breath, his functional capacity has been stable. The rest of review of systems otherwise negative. PAST MEDICAL HISTORY: 1. Coronary artery disease, status post coronary bypass grafting x3 with a MCGRATH to the LAD and SVG to the ramus intermediate branch and SVG to the RCA. 2. Status post mitral valve repair at the time of his bypass surgery (in 1999). 3. Severe left ventricular hypertrophy with chronic diastolic heart failure. 4. Chronic atrial flutter with a rate control strategy on anticoagulation. 5. Acute on chronic diastolic heart failure. 6. Hypertension. 7. Hyperlipidemia. 8. BPH. 9. Remote history of peptic ulcer disease. SOCIAL HISTORY: He is . He lives alone. He lives in a trailer with 4 steps to get in. He has support from his daughter. He is retired and is a prior smoker. FAMILY HISTORY: Noncontributory. ALLERGIES: ASPIRIN, BLACK PEPPER. LISINOPRIL, AND SULFA. MEDICATIONS: Reviewed in the electronic medical record. PHYSICAL EXAMINATION: GENERAL: He is awake, alert, and oriented x3. He is in no acute distress. He looks younger than his stated age. VITAL SIGNS: His heart rate is 66, his blood pressure 131/79, his respirations are 17, and his pulse ox is 96% on 2 liters. HEENNT: 2+ carotid upstrokes. No evidence of carotid bruits. Jugular venous pressure did not appear elevated. His sclerae anicteric. His hearing is normal. LUNGS: Crackles in the bases bilaterally. No rhonchi or wheezing. HEART: Regular rate and rhythm. No appreciable murmurs, rubs or gallops. ABDOMEN: Soft, nontender, and nondistended. Positive bowel sounds. EXTREMITIES: Mild to moderate pitting edema to the mid tibia bilaterally. PSYCHIATRIC: His affect appeared appropriate. DIAGNOSTIC STUDIES: EKG on admission, atrial flutter with variable conduction. Nonspecific T-wave changes in the inferior leads. PVCs. Subsequent EKG on November 17, atrial flutter again, PVCs, ST-T changes now in the precordial leads, consider anterior lateral ischemia. EKG this morning, normal sinus rhythm, ST-T wave changes, and consider anterolateral ischemia. LABORATORY STUDIES: Sodium 144, potassium 3.9, BUN 20, and creatinine 1. On admission, his AST was mildly elevated and his ALT was normal. His ProBNP was elevated at 1164. His first troponin is 0.062 and his third is 0.058. His LDL is 44 and his HDL is 29. His echocardiogram from April 2016 was reviewed. IMPRESSION: 1. Coronary artery disease, status post coronary artery bypass grafting x3 in 1999. 2. Status post mitral valve repair in 1999. 3. Severe left ventricular hypertrophy with preserved left ventricular systolic function. 4. Acute on chronic diastolic heart failure. 5. Hypertension. 6. Minimal troponin elevation likely related to heart failure. 7. New ST-T changes in the anterior precordial leads. Mr. Mckinney denies any chest pain or chest pressure or chest heaviness to suggest he is having angina. If he were to have recurrence of his heart failure that is unexplained, then additional diagnostic imaging may be warranted. At this point, as he has no angina, his functional capacity is slightly limited, but at its baseline. I would not recommend cardiac catheterization at this time. He does describe cardiac testing after his most recent hospitalization in April at the [facility], which should be obtained. I agree with diuresis, he is on an appropriate medical regimen including beta blockers, angiotensin receptor blockers, statin therapy and Plavix as he is ALLERGIC TO ASPIRIN. If he were to have progressive shortness of breath, then further testing would be warranted. The challenge is he lives by himself at home and he wants to continue with this, but because he is cooking for himself and because he has issues with his dentures, he can only eat soft food and most of that is coming from canned soup and canned vegetables, which are very high in sodium. He notes he tried Meals on Wheels after his last admission. Unfortunately, the food consisted of lots of fresh vegetables, which he could not consume. If he were to have progressive shortness of breath during physical therapy or with ambulation here in the hospital, then we have to consider further testing. Thank you for allowing us to participate in his care.
--- NOTE | 2016-11-18 14:50 | Family Medicine Progress Note ---
Progress Note Date of Service Nov 18, 2016. Subjective Pt evaluation today including: conversation w/ patient, physical exam, chart review, conversation w/ [employer] drm consultant, review of inpatient medication list Pain: none PO Intake: good Voiding: no voiding problems Patient with no acute events overnight Did have 2-3 episodes of non bloody non bilious vomiting yesterday. patient thinks it was most likely due to the pees he ate. resolved shortly after Did cough up some frothy pink sputum with some darker shades of red, as well as a bit of yellow sputum, but also resolved afterwards On ROS denies any chest pain, palpitations, shortness of breath, fevers, chills , night sweats, abdominal pain, diarrhea, constipation Additional Comments: please see above note for ROS Medications Current Inpatient Medications Medications (Trade) Dose Ordered Sig/Meño Route Start Time Stop Time Status Last Admin Dose Admin Acetaminophen (Tylenol Tab) 650 mg Q4H PRN PO 11/16/16 22:00 12/16/16 21:59 Zolpidem Tartrate (Ambien Tab) 5 mg HSZ PRN PO 11/16/16 22:00 12/16/16 21:59 Carvedilol (Coreg Tab) 25 mg BID PO 11/17/16 09:00 12/17/16 08:59 11/18/16 07:49 25 MG Furosemide (Lasix Tab) 40 mg QAM PO 11/17/16 09:00 12/17/16 08:59 11/18/16 07:50 40 MG Nitroglycerin (Nitrostat Tab) 0.4 mg PRN UT 11/16/16 22:00 12/16/16 21:59 Potassium Chloride (Klor-Con Tab) 20 meq QAM PO 11/17/16 09:00 12/17/16 08:59 11/18/16 07:51 20 MEQ Pantoprazole Sodium (Protonix Tab) 40 mg QAM PO 11/17/16 09:00 12/17/16 08:59 11/18/16 07:49 40 MG Guaifenesin (Mucinex Contr Rel Tab) 600 mg Q12 PO 11/17/16 09:00 12/17/16 08:59 11/18/16 07:49 600 MG Ondansetron HCl (Zofran Inj) 4 mg Q6H PRN IV 11/16/16 22:00 12/16/16 21:59 11/17/16 23:01 4 MG Ipratropium [place] (Atrovent 0.02% 0.5MG/2.5ML Neb) 0.5 mg Q6R INH 11/17/16 03:00 12/17/16 02:59 11/18/16 07:35 0.5 MG Levalbuterol (Xopenex 1.25MG/ 0.5ML Neb) 1.25 mg Q6R INH 11/17/16 03:00 12/17/16 02:59 11/18/16 07:35 1.25 MG Ipratropium [place] (Atrovent 0.02% 0.5MG/2.5ML Neb) 0.5 mg Q2H PRN INH 11/16/16 22:30 12/16/16 22:29 Levalbuterol (Xopenex 1.25MG/ 0.5ML Neb) 1.25 mg Q2H PRN INH 11/16/16 22:30 12/16/16 22:29 Warfarin Sodium (Coumadin Tab) 3 mg DAILY@16 PO 11/17/16 16:00 12/17/16 15:59 Future Hold Valsartan (Diovan Tab) 80 mg QAM PO 11/18/16 09:00 12/18/16 08:59 11/18/16 07:52 80 MG Atorvastatin Calcium (Lipitor Tab) 40 mg QAM PO 11/18/16 09:00 12/18/16 08:59 11/18/16 07:51 40 MG Clopidogrel Bisulfate (plAVix TAB) 75 mg QAM PO 11/18/16 09:00 12/18/16 08:59 11/18/16 09:00 75 MG Objective Vital Signs Date Time Temp Pulse Resp B/P (MAP) Pulse Ox O2 Delivery O2 Flow Rate FiO2 11/18/16 11:00 93 11/18/16 11:00 36.2 74 18 120/70 (87) 93 Room Air 11/18/16 10:22 36.6 66 18 96 11/18/16 08:00 Nasal Cannula 2.0 11/18/16 07:43 36.6 66 17 131/79 (96) 96 Room Air 11/18/16 07:36 78 12 97 Nasal Cannula 2.0 11/18/16 04:26 36.5 65 18 117/73 (88) 95 Nasal Cannula 11/18/16 04:00 Nasal Cannula 2.0 11/18/16 02:14 72 16 98 Nasal Cannula 3.0 11/17/16 23:59 Nasal Cannula 2.0 11/17/16 23:52 36.8 79 18 117/73 (88) 94 Nasal Cannula 2.0 11/17/16 20:00 Nasal Cannula 2.0 11/17/16 18:50 37.2 82 18 124/75 (91) 94 Nasal Cannula 2.0 11/17/16 18:41 82 16 97 Nasal Cannula 3.0 11/17/16 15:24 36.8 61 18 127/69 (88) 94 Nasal Cannula 2.0 11/17/16 15:20 Nasal Cannula 2.0 Humidified Oxygen 11/17/16 14:49 77 16 97 Nasal Cannula 3.0 Physical Exam General Appearance: WD/WN, no apparent distress, + pertinent finding (no longer on oxygen via nasal cannula) Respiratory/Chest: chest non-tender, lungs clear, no respiratory distress, no accessory muscle use Cardiovascular: regular rate, rhythm, no JVD, no murmur Abdomen: normal bowel sounds, non tender, soft Extremities: non-tender, + pedal edema (+2 up to the mid [place]), + pertinent finding (rough lower extremity skin that is non tender) Neurologic/Psychiatric: alert, normal mood/affect, oriented x 3 Laboratory Results Results Past 24 Hours Test 11/17/16 15:25 11/17/16 20:37 11/18/16 04:30 Range/Units Troponin I 0.062 0.076 0.058 0-0.045 ng/ml White Blood Count 11.90 4.8-10.8 K/uL Red Blood Count 5.17 4.7-6.1 M/uL Hemoglobin 16.1 14.0-18.0 g/dL Hematocrit 47.2 42-52 % Mean Corpuscular Volume 91.3 80-100 fL Mean Corpuscular Hemoglobin 31.1 25-34 pg Mean Corpuscular Hemoglobin Concent 34.1 32-36 g/dl Platelet Count 161 130-400 K/uL Mean Platelet Volume 9.3 7.4-10.4 fL Neutrophils (%) (Auto) 84.8 % Lymphocytes (%) (Auto) 7.6 % Monocytes (%) (Auto) 7.3 % Eosinophils (%) (Auto) 0.0 % Basophils (%) (Auto) 0.0 % Neutrophils # (Auto) 10.09 1.4-6.5 K/uL Lymphocytes # (Auto) 0.90 1.2-3.4 K/uL Monocytes # (Auto) 0.87 0.11-0.59 K/uL Eosinophils # (Auto) 0.00 0-0.5 K/uL Basophils # (Auto) 0.00 0-0.2 K/uL RDW Standard Deviation 46.3 36.4-46.3 fL RDW Coefficient of Variation 13.8 11.5-14.5 % Immature Granulocyte % (Auto) 0.3 % Immature Granulocyte # (Auto) 0.04 0.00-0.02 K/uL Prothrombin Time 24.6 9.0-12.0 SECONDS Prothromb Time International Ratio 2.2 0.9-1.1 Sodium Level 145 136-145 mmol/L Potassium Level 4.3 3.5-5.1 mmol/L Chloride Level 112 98-107 mmol/L Carbon Dioxide Level 31 21-32 mmol/L Anion Gap 2.0 3-11 mmol/L Blood Urea Nitrogen 26 7-18 mg/dl Creatinine 1.00 0.60-1.40 mg/dl Est Creatinine Clear Calc Drug Dose 63.9 ml/min Estimated GFR () 79.2 Estimated GFR (Non- 68.3 BUN/Creatinine Ratio 25.8 10-20 Random Glucose 117 70-99 mg/dl Calcium Level 7.4 8.5-10.1 mg/dl Triglycerides Level 51 0-150 mg/dl Cholesterol Level 83 0-200 mg/dl HDL Cholesterol 29 mg/dl LDL Cholesterol, Calculated 44 mg/dl VLDL Cholesterol, Calculated 10 mg/dl Cholesterol/HDL Ratio 2.9 Assessment and Plan The patient is a 86-year-old male with a PMH of CABG, COPD, Atrial flutter, HTN and Hyperlipidemia who presented to the emergency department with acute onset of worsening shortness of breath over the past 7 hours prior to arrival. Patient has remained afebrile and has no WCC. Patient has continued to improve and is hemodynamically stable and without any current symptoms. At the moment all he needs he PT/OT to decide if it is safe for the patient to go home. Congestive Heart Failure - CXR showed bilateral pleural effusions - Given 40mg IV furosemide - Continue carvedilol and furosemide PO, started valsartan 80mg daily - Monitor I/O's - potassium chloride 20meq by mouth every morning Atrial flutter - continue carvedilol 25 mg bid - Continue warfarin 3mg - INR 2.2, continue to monitor - rate controlled continue anticoagulation CAD with EKG changes - EKG showed T wave inversion--> troponins .062, .076 --> Dr. vargas saw patient and does not want to cath patient at the moment. Says patient is at his baseline, will follow - atorvastatin 40mg started. Lipids checked and within normal limits - started clopidogrel as patient is allergic to aspirin COPD - continue atrovent and xopenex - O2 via nasal cannula Hyperlipidemia - atorvastatin 40mg PO GERD - pantoprazole 40mg PO Dispo - PT/OT Full Code Resident Physician Supervision Note: I interviewed and examined the patient. Discussed with Dr. Mcguire and agree with findings and plan as documented in the note. Any exceptions or clarifications are listed here: None Documented By: Robert Fuentes feeling better off O2 no new complaints but hasn't gotten up much ROS otherwise negative except for as above vitals noted nad no pallor or icterus breathing unlabored 93% on RA acute hypoxia from acute on chronic diastolic CHF (or CHF w preserved EF) - improved. med management dynamic EKG changes, mild troponin bump - med management as ordered (started plavix, upgraded statin, started ARB) - cardiology input on ?benefit of cath. suspect downstream small vessel disease distal to cabg but await thoughts from cardio DVT proph - anticoag w coumadin otherwise as above Continued [facility] stay due to: ambulation difficulties
[2016-11-18] MEDS ORDERED: WARFARIN SOD 3 MG TAB PO SCH (16:00)
[2016-11-18] MEDS ORDERED: NURSING VERBAL MED ORDER ONE (16:15)
[2016-11-18] MEDS: WARFARIN SOD 3 MG TAB PO SCH (17:55)
[2016-11-18] MEDS: LEValbuterol HFA 15GM INHALER INH SCH (20:04)
[2016-11-18] MEDS: IPRATROPIUM BROMIDE HFA INHALER INH SCH (20:04)
[2016-11-18] MEDS ORDERED: NURSING DECISION MEDICATION ORDER SCH (21:30)
[2016-11-18] MEDS ORDERED: COUGH DROP (SUGAR FREE) LOZ 24 LOZ/1 BOX PO PRN (21:30)
[2016-11-19] MEDS: LEValbuterol HFA 15GM INHALER INH SCH ×4 (04:32→20:24)
[2016-11-19] MEDS: IPRATROPIUM BROMIDE HFA INHALER INH SCH ×4 (04:32→20:24)
[2016-11-19 05:36] LABS: COMPLETE YES; EOS % 0.1 %; HEMATOCRIT 46.1 % (42-52); IG% 0.3 %; LYMPH % 7.8 %; LYMPH ABS # 0.86 K/uL (1.2-3.4); MEAN CORPUSCULAR HEMOGLOBIN 30.3 pg (25-34); MEAN PLATELET VOLUME 9.6 fL (7.4-10.4); MONO % 6.8 %; PLATELET COUNT 158 K/uL (130-400); RED BLOOD COUNT 5.01 M/uL (4.7-6.1); WHITE BLOOD COUNT 11.06 K/uL (4.8-10.8)
[2016-11-19 05:52] LABS: PROTHROMBIN TIME (PATIENT) 21.5 SECONDS (9.0-12.0)
[2016-11-19 06:03] LABS: BUN/CREATININE RATIO 27.6 (10-20); CREATININE 0.95 mg/dl (0.60-1.40); POTASSIUM 4.4 mmol/L (3.5-5.1)
[2016-11-19 07:32] VITALS: BP 106/67; PULSE 69; TEMP 36.8; O2SAT 90
[2016-11-19 08:00] VITALS: O2SAT 90
[2016-11-19] MEDS: FUROSEMIDE 40 MG TAB PO SCH (08:22)
[2016-11-19] MEDS: GUAIFENESIN 600 MG TABCR PO SCH ×2 (08:22→20:24)
[2016-11-19] MEDS: CARVEDILOL 25 MG TAB PO SCH ×2 (08:23→20:25)
[2016-11-19] MEDS: ATORVASTATIN 40 MG TAB PO SCH (08:23)
[2016-11-19] MEDS: VALSARTAN 80 MG TAB PO SCH (08:23)
[2016-11-19] MEDS: PANTOprazole SOD 40 MG TAB PO SCH (08:24)
[2016-11-19] MEDS: POTASSIUM CHLORIDE 20 MEQ TABCR PO SCH (08:24)
[2016-11-19] MEDS: CLOPIDOGREL BISULFATE 75 MG TAB PO SCH (08:25)
--- NOTE | 2016-11-19 08:29 | Clinical Documentation Query ---
CLINICAL DOCUMENTATION QUERY Dr. ANDREWS, In your clinical opinion does this patient have: ( ) Chronic kidney disease, stage 2-3 ( ) Other explanation of clinical findings (Please Explain) ( ) Unable to determine (Please Define) ( ) Need to Discuss ( ) Not Agree The medical record reflects the following clinical findings, treatment, and risk factors. Clinical Indicators: 86 yo male presenting with acute on chronic diastolic heart failure. Review of historical GFR revealed range of 54.8 -72.7 with Cr range of 0.95-1.2 Treatment: monitor PRP's, treat comorbid conditions Risk Factors: age, chronic diastolic CHF, HTN, COPD, CAD, chronic A flutter Please clarify and document your clinical opinion in the progress notes and discharge summary. Terms such as "probable", "suspected", "likely", "questionable", "possible", or "still to be ruled out" are acceptable. IF IN AGREEMENT, YOU MUST DOCUMENT ABOVE DIAGNOSTIC STATEMENT IN DAILY PROGRESS NOTES AND DISCHARGE SUMMARY. This document is not part of the patient's record. Thank You, Corinne Hernandez, RN [phone]
--- NOTE | 2016-11-19 08:32 | Clinical Documentation Query ---
CLINICAL DOCUMENTATION QUERY Dr. MEJIA, In your clinical opinion does this patient have: ( x) Chronic kidney disease, stage 2-3 ( ) Other explanation of clinical findings (Please Explain) ( ) Unable to determine (Please Define) ( ) Need to Discuss ( ) Not Agree The medical record reflects the following clinical findings, treatment, and risk factors. Clinical Indicators: 86 yo male presenting with acute on chronic diastolic heart failure. Review of historical GFR revealed range of 54.8 -72.7 with Cr range of 0.95-1.2 Treatment: monitor PRP's, treat comorbid conditions Risk Factors: age, chronic diastolic CHF, HTN, COPD, CAD, chronic A flutter Please clarify and document your clinical opinion in the progress notes and discharge summary. Terms such as "probable", "suspected", "likely", "questionable", "possible", or "still to be ruled out" are acceptable. IF IN AGREEMENT, YOU MUST DOCUMENT ABOVE DIAGNOSTIC STATEMENT IN DAILY PROGRESS NOTES AND DISCHARGE SUMMARY. This document is not part of the patient's record. Thank You, Corinne Hernandez, RN [phone]
--- NOTE | 2016-11-19 13:32 | Family Medicine Progress Note ---
Progress Note Date of Service Nov 19, 2016. Subjective Pt evaluation today including: conversation w/ patient, conversation w/ family , physical exam, chart review, lab review, review of studies, review of inpatient medication list Pain: reports episode of cp exacerbated by cough Patient reports coughing up blood 3 x on yesterday mixed in with sputum. This AM he report cough colored sputum. Patient is very concerned and does not feel he can go home. Hemoptysis unconfirmed by nursing. also reports 1 episode of CP overnight around 11PM exacerbated by coughing. He reports it lasted an hr Constitutional: + weakness, No fever, No chills Respiratory: + cough, + shortness of breath, + hemoptysis (unconfirmed) Cardiovascular: + chest pain, No edema, No palpitations Abdomen: + pain, + nausea, + vomiting Male : No dysuria, No urinary frequency Endo: + fatigue Skin: + rash, + itch Medications Current Inpatient Medications Medications (Trade) Dose Ordered Sig/Meño Route Start Time Stop Time Status Last Admin Dose Admin Acetaminophen (Tylenol Tab) 650 mg Q4H PRN PO 11/16/16 22:00 12/16/16 21:59 Zolpidem Tartrate (Ambien Tab) 5 mg HSZ PRN PO 11/16/16 22:00 12/16/16 21:59 Carvedilol (Coreg Tab) 25 mg BID PO 11/17/16 09:00 12/17/16 08:59 11/19/16 08:23 25 MG Furosemide (Lasix Tab) 40 mg QAM PO 11/17/16 09:00 12/17/16 08:59 11/19/16 08:22 40 MG Nitroglycerin (Nitrostat Tab) 0.4 mg PRN UT 11/16/16 22:00 12/16/16 21:59 Potassium Chloride (Klor-Con Tab) 20 meq QAM PO 11/17/16 09:00 12/17/16 08:59 11/19/16 08:24 20 MEQ Pantoprazole Sodium (Protonix Tab) 40 mg QAM PO 11/17/16 09:00 12/17/16 08:59 11/19/16 08:24 40 MG Guaifenesin (Mucinex Contr Rel Tab) 600 mg Q12 PO 11/17/16 09:00 12/17/16 08:59 11/19/16 08:22 600 MG Ondansetron HCl (Zofran Inj) 4 mg Q6H PRN IV 11/16/16 22:00 12/16/16 21:59 11/17/16 23:01 4 MG Warfarin Sodium (Coumadin Tab) 3 mg DAILY@16 PO 11/17/16 16:00 12/17/16 15:59 Future hold 11/18/16 17:55 3 MG Valsartan (Diovan Tab) 80 mg QAM PO 11/18/16 09:00 12/18/16 08:59 11/19/16 08:23 80 MG Atorvastatin Calcium (Lipitor Tab) 40 mg QAM PO 11/18/16 09:00 12/18/16 08:59 11/19/16 08:23 40 MG Clopidogrel Bisulfate (plAVix TAB) 75 mg QAM PO 11/18/16 09:00 12/18/16 08:59 11/19/16 08:25 75 MG Ipratropium [place] (Atrovent Hfa Inhaler) 2 puffs Q6R INH 11/18/16 21:00 12/18/16 20:59 11/19/16 08:22 2 PUFFS Levalbuterol (Xopenex Hfa Inhaler) 2 puffs Q6R INH 11/18/16 21:00 12/18/16 20:59 11/19/16 08:22 2 PUFFS Menthol (Nice Delma) 1 delma PRN PRN PO 11/18/16 21:30 12/18/16 21:29 Objective Vital Signs Date Time Temp Pulse Resp B/P (MAP) Pulse Ox O2 Delivery O2 Flow Rate FiO2 11/19/16 08:00 90 Room Air 11/19/16 07:32 36.8 69 18 106/67 (80) 90 Room Air 11/19/16 00:00 Room Air 11/18/16 23:19 36.3 58 20 106/69 (81) 93 Room Air 11/18/16 16:22 93 Room Air 11/18/16 15:51 36.4 68 18 115/67 (83) 93 Room Air 11/18/16 14:42 90 11/18/16 14:27 66 16 96 Nasal Cannula 2.0 Physical Exam General Appearance: WD/WN, no apparent distress Eyes: normal inspection, PERRL Neck: supple, trachea midline Respiratory/Chest: normal breath sounds, no respiratory distress, + crackles ( LLL) Cardiovascular: regular rate, rhythm, no murmur Abdomen: normal bowel sounds, non tender, soft Extremities: no pedal edema, no calf tenderness Neurologic/Psychiatric: alert, normal mood/affect Skin: normal color, warm/dry, no rash Laboratory Results Results Past 24 Hours Test 11/19/16 05:20 Range/Units White Blood Count 11.06 4.8-10.8 K/uL Red Blood Count 5.01 4.7-6.1 M/uL Hemoglobin 15.2 14.0-18.0 g/dL Hematocrit 46.1 42-52 % Mean Corpuscular Volume 92.0 80-100 fL Mean Corpuscular Hemoglobin 30.3 25-34 pg Mean Corpuscular Hemoglobin Concent 33.0 32-36 g/dl Platelet Count 158 130-400 K/uL Mean Platelet Volume 9.6 7.4-10.4 fL Neutrophils (%) (Auto) 85.0 % Lymphocytes (%) (Auto) 7.8 % Monocytes (%) (Auto) 6.8 % Eosinophils (%) (Auto) 0.1 % Basophils (%) (Auto) 0.0 % Neutrophils # (Auto) 9.41 1.4-6.5 K/uL Lymphocytes # (Auto) 0.86 1.2-3.4 K/uL Monocytes # (Auto) 0.75 0.11-0.59 K/uL Eosinophils # (Auto) 0.01 0-0.5 K/uL Basophils # (Auto) 0.00 0-0.2 K/uL RDW Standard Deviation 48.4 36.4-46.3 fL RDW Coefficient of Variation 14.4 11.5-14.5 % Immature Granulocyte % (Auto) 0.3 % Immature Granulocyte # (Auto) 0.03 0.00-0.02 K/uL Prothrombin Time 21.5 9.0-12.0 SECONDS Prothromb Time International Ratio 2.0 0.9-1.1 Sodium Level 147 136-145 mmol/L Potassium Level 4.4 3.5-5.1 mmol/L Chloride Level 113 98-107 mmol/L Carbon Dioxide Level 31 21-32 mmol/L Anion Gap 3.0 3-11 mmol/L Blood Urea Nitrogen 26 7-18 mg/dl Creatinine 0.95 0.60-1.40 mg/dl Est Creatinine Clear Calc Drug Dose 67.0 ml/min Estimated GFR () 84.3 Estimated GFR (Non- 72.7 BUN/Creatinine Ratio 27.6 10-20 Random Glucose 87 70-99 mg/dl Calcium Level 7.0 8.5-10.1 mg/dl 25-Hydroxy Vitamin D Total 29.1 30-100 ng/ml Assessment and Plan 86 yo M with hx of CAD s/p CABG, COPD, Aflutter, HTN, HLD, CHF admitted with Acute Hypoxia in the setting of acute on chronic diastolic HF, with mild elevated troponin Congestive Heart Failure - Given extra dose of 40 mg PO Lasix today - Continue carvedilol and furosemide PO, valsartan 80mg daily - Monitor I/O's LLL crackles, possible hemoptysis - CXR today, - small bilateral pleural effusions, and bibasilar interstitial opacities. While likely secondary to basilar interstitial edema - c/w Diuresis Atrial flutter - asx, stable, rate controlled - c/w carvedilol 25 mg bid - C/w warfarin 3mg - INR 2.0 CAD with EKG changes - EKG with T wave inversion--> troponins .062, .076 - c/w atorvastatin 40mg - c/w plavix - Per Cardiology, ischemic workup in hospital not needed at this time COPD - continue atrovent and xopenex - weaned to rm air - continue to monitor Hyperlipidemia - atorvastatin 40mg PO GERD - pantoprazole 40mg PO Dispo - PT/OT Full Code I was present with Dr. Martínez during the history and exam. I discussed the case with the resident and agree with the findings and plan as documented in the note. Any exceptions or clarifications are listed here: Physical exam with crackles, left base; chest-xray consistent with congestive changes, no evidence of focal consolidation; he remains afebrile. Agree with continued diuresis. Continued [facility] stay due to: multiple IV medications needed Discharge planning: home Resident Tracking Resident Involvement: Resident Care Provided Care Provided: Adult Hospital Medicine
[2016-11-19 15:18] VITALS: BP 92/55; PULSE 68; TEMP 36.8; O2SAT 91
--- NOTE | 2016-11-19 16:02 | DIAGNOSTIC IMAGING REPORT ---
CHEST 2 VIEWS ROUTINE CLINICAL HISTORY: LLL crackles, hemoptysis COMPARISON STUDY: 11/16/2016 FINDINGS: The heart is enlarged. A valvular prosthesis is visualized. There is persistent blunting of both lateral costophrenic angles. Bibasilar interstitial opacities are evident. While likely secondary to mild edema, an inflammatory process could appear similar.[ IMPRESSION: Persistent cardiomegaly, small bilateral pleural effusions, and by basilar interstitial opacities. While likely secondary to basilar interstitial edema, and inflammatory process could appear similar. Electronically signed by: Ramakrishna Pagan M.D. 11/19/2016 4:00 PM Dictated Date/Time: 11/19/2016 3:59 PM
[2016-11-19 16:22] VITALS: O2SAT 93
[2016-11-19] MEDS: WARFARIN SOD 3 MG TAB PO SCH (16:57)
--- NOTE | 2016-11-19 17:38 | Cardiology Follow-Up ---
Subjective Subjective Date of Service: Nov 19, 2016. Pt evaluation today including: conversation w/ patient, conversation w/ family , physical exam, chart review, lab review, review of studies, review of inpatient medication list Additional Details: Breathing improved. No chest pain. Intermittent coughing overnight. ?able episode of mild hemoptysis. Persistent fatigue. Problem List Medical Problems: (1) Abnormal EKG Status: Acute (2) CHF (congestive heart failure) Status: Chronic (3) COPD exacerbation Status: Acute (4) Dermatitis Status: Acute (5) Hypoxia Status: Acute (6) Hypoxia Status: Acute (7) Pulmonary edema Status: Acute (8) Pulmonary edema Status: Acute (9) Respiratory distress Status: Acute (10) Shortness of breath Status: Acute (11) SOB (shortness of breath) Status: Acute (12) Supratherapeutic INR Status: Acute (13) Weakness generalized Status: Acute Review of Systems Constitutional: No fever ENT: + sore throat Respiratory: + cough, + sputum Cardiac: + edema, No chest pain Abdomen: + constipation, No pain, No nausea Psychiatric: No depression symptoms Heme: No abnormal bleeding/bruising Endo: + fatigue Skin: No rash Objective Vital Signs Last Vital Signs Documentation Date Time Temp Pulse Resp B/P (MAP) Pulse Ox O2 Delivery O2 Flow Rate FiO2 11/19/16 15:18 36.8 68 16 92/55 (67) 91 Room Air 11/18/16 14:27 2.0 Physical Exam: General Appearance: no apparent distress, + pertinent finding (no longer on oxygen via nasal cannula) ENT: hearing grossly normal, pharynx normal Neck: no adenopathy, trachea midline Respiratory/Chest: lungs clear, no respiratory distress, no accessory muscle use, + decreased breath sounds (at bases bilaterally) Cardiovascular: regular rate, rhythm, no JVD, no murmur Abdomen: normal bowel sounds, non tender, soft Extremities: non-tender, + pedal edema (1+ chronic woody edema to shins) Neurologic/Psychiatric: alert, normal mood/affect, oriented x 3 Skin: normal color, warm/dry Assessment and Plan 1. Acute on chronic diastolic heart failure 2. CAD s/p 3v CABG 3. Mild troponin elevation 4. Persistent atrial flutter on coumadin 5. COPD 6. Hypertension Well perfused. Mild residual pulmonary and systemic venous congestion on exam, edema on cxr, weights unchanged. HR reasonably controlled. Troponin peaked and no significant residual chest pain. -- Continue diuresis --> would increase to BID lasix and follow weights, SCr -- Continue Coreg -- OK with valsartan as BP allows. -- Continue anticoagulation. -- Agree with holding off on ischemic evaluation for now. If recurrent symptoms could consider as an outpatient. Will continue to follow. Continued [facility] stay due to: ambulation difficulties Medications: Current Inpatient Medications Medications (Trade) Dose Ordered Sig/Meño Route Start Time Stop Time Status Last Admin Dose Admin Acetaminophen (Tylenol Tab) 650 mg Q4H PRN PO 11/16/16 22:00 12/16/16 21:59 Zolpidem Tartrate (Ambien Tab) 5 mg HSZ PRN PO 11/16/16 22:00 12/16/16 21:59 Carvedilol (Coreg Tab) 25 mg BID PO 11/17/16 09:00 12/17/16 08:59 11/19/16 08:23 25 MG Furosemide (Lasix Tab) 40 mg QAM PO 11/17/16 09:00 12/17/16 08:59 11/19/16 08:22 40 MG Nitroglycerin (Nitrostat Tab) 0.4 mg PRN UT 11/16/16 22:00 12/16/16 21:59 Potassium Chloride (Klor-Con Tab) 20 meq QAM PO 11/17/16 09:00 12/17/16 08:59 11/19/16 08:24 20 MEQ Pantoprazole Sodium (Protonix Tab) 40 mg QAM PO 11/17/16 09:00 12/17/16 08:59 11/19/16 08:24 40 MG Guaifenesin (Mucinex Contr Rel Tab) 600 mg Q12 PO 11/17/16 09:00 12/17/16 08:59 11/19/16 08:22 600 MG Ondansetron HCl (Zofran Inj) 4 mg Q6H PRN IV 11/16/16 22:00 12/16/16 21:59 11/17/16 23:01 4 MG Warfarin Sodium (Coumadin Tab) 3 mg DAILY@16 PO 11/17/16 16:00 12/17/16 15:59 Future hold 11/19/16 16:57 3 MG Valsartan (Diovan Tab) 80 mg QAM PO 11/18/16 09:00 12/18/16 08:59 11/19/16 08:23 80 MG Atorvastatin Calcium (Lipitor Tab) 40 mg QAM PO 11/18/16 09:00 12/18/16 08:59 11/19/16 08:23 40 MG Clopidogrel Bisulfate (plAVix TAB) 75 mg QAM PO 11/18/16 09:00 12/18/16 08:59 11/19/16 08:25 75 MG Ipratropium [place] (Atrovent Hfa Inhaler) 2 puffs Q6R INH 11/18/16 21:00 12/18/16 20:59 11/19/16 16:57 2 PUFFS Levalbuterol (Xopenex Hfa Inhaler) 2 puffs Q6R INH 11/18/16 21:00 12/18/16 20:59 11/19/16 16:58 2 PUFFS Menthol (Nice Delma) 1 delma PRN PRN PO 11/18/16 21:30 12/18/16 21:29 Lab Results: 11/19/16 05:20 Red Blood Count 5.01, Mean Corpuscular Volume 92.0, Mean Corpuscular Hemoglobin 30.3, Mean Corpuscular Hemoglobin Concent 33.0, Mean Platelet Volume 9.6, Neutrophils (%) (Auto) 85.0, Lymphocytes (%) (Auto) 7.8, Monocytes (%) (Auto) 6.8, Eosinophils (%) (Auto) 0.1, Basophils (%) (Auto) 0.0, Neutrophils # (Auto) 9.41, Lymphocytes # (Auto) 0.86, Monocytes # (Auto) 0.75, Eosinophils # (Auto) 0.01, Basophils # (Auto) 0.00 11/19/16 05:20 Test 11/19/16 05:20 White Blood Count 11.06 K/uL (4.8-10.8) Red Blood Count 5.01 M/uL (4.7-6.1) Hemoglobin 15.2 g/dL (14.0-18.0) Hematocrit 46.1 % (42-52) Mean Corpuscular Volume 92.0 fL (80-100) Mean Corpuscular Hemoglobin 30.3 pg (25-34) Mean Corpuscular Hemoglobin Concent 33.0 g/dl (32-36) Platelet Count 158 K/uL (130-400) Mean Platelet Volume 9.6 fL (7.4-10.4) Neutrophils (%) (Auto) 85.0 % Lymphocytes (%) (Auto) 7.8 % Monocytes (%) (Auto) 6.8 % Eosinophils (%) (Auto) 0.1 % Basophils (%) (Auto) 0.0 % Neutrophils # (Auto) 9.41 K/uL (1.4-6.5) Lymphocytes # (Auto) 0.86 K/uL (1.2-3.4) Monocytes # (Auto) 0.75 K/uL (0.11-0.59) Eosinophils # (Auto) 0.01 K/uL (0-0.5) Basophils # (Auto) 0.00 K/uL (0-0.2) RDW Standard Deviation 48.4 fL (36.4-46.3) RDW Coefficient of Variation 14.4 % (11.5-14.5) Immature Granulocyte % (Auto) 0.3 % Immature Granulocyte # (Auto) 0.03 K/uL (0.00-0.02) Prothrombin Time 21.5 SECONDS (9.0-12.0) Prothromb Time International Ratio 2.0 (0.9-1.1) Anion Gap 3.0 mmol/L (3-11) Est Creatinine Clear Calc Drug Dose 67.0 ml/min Estimated GFR () 84.3 Estimated GFR (Non- 72.7 BUN/Creatinine Ratio 27.6 (10-20) Calcium Level 7.0 mg/dl (8.5-10.1) 25-Hydroxy Vitamin D Total 29.1 ng/ml (30-100)
[2016-11-19] MEDS ORDERED: FUROSEMIDE 40 MG TAB PO ONE (18:15)
[2016-11-19 20:30] VITALS: BP 110/70; PULSE 71
[2016-11-20] MEDS: IPRATROPIUM BROMIDE HFA INHALER INH SCH ×3 (03:20→15:30)
[2016-11-20] MEDS: LEValbuterol HFA 15GM INHALER INH SCH ×3 (03:21→15:31)
[2016-11-20 07:54] VITALS: BP 133/80; PULSE 57; TEMP 36.7; O2SAT 91
[2016-11-20 08:01] LABS: BASO % 0.1 %; BASO ABS # 0.01 K/uL (0-0.2); COMPLETE YES; IG% 0.4 %; LYMPH % 8.1 %; LYMPH ABS # 0.79 K/uL (1.2-3.4); MEAN CELL VOLUME 93.9 fL (80-100); MEAN CORPUSCULAR HEMOGLOBIN 32.4 pg (25-34); MEAN CORPUSCULAR HGB CONC 34.5 g/dl (32-36); MEAN PLATELET VOLUME 10.1 fL (7.4-10.4); MONO % 7.6 %; NEUT % 83.8 %; PLATELET COUNT 165 K/uL (130-400); RED BLOOD COUNT 5.22 M/uL (4.7-6.1); WHITE BLOOD COUNT 9.81 K/uL (4.8-10.8)
[2016-11-20 08:07] VITALS: O2SAT 92
[2016-11-20 08:10] VITALS: BP 140/86; PULSE 72
[2016-11-20] MEDS: GUAIFENESIN 600 MG TABCR PO SCH (08:13)
[2016-11-20] MEDS: POTASSIUM CHLORIDE 20 MEQ TABCR PO SCH (08:13)
[2016-11-20] MEDS: CARVEDILOL 25 MG TAB PO SCH (08:13)
[2016-11-20] MEDS: VALSARTAN 80 MG TAB PO SCH (08:13)
[2016-11-20] MEDS: PANTOprazole SOD 40 MG TAB PO SCH (08:13)
[2016-11-20] MEDS: ATORVASTATIN 40 MG TAB PO SCH (08:14)
[2016-11-20] MEDS: CLOPIDOGREL BISULFATE 75 MG TAB PO SCH (08:14)
[2016-11-20] MEDS: FUROSEMIDE 40 MG TAB PO SCH (08:14)
[2016-11-20 09:03] LABS: BUN/CREATININE RATIO 28.1 (10-20); CALCIUM 7.4 mg/dl (8.5-10.1); CREATININE 0.97 mg/dl (0.60-1.40); POTASSIUM 4.6 mmol/L (3.5-5.1)
[2016-11-20 10:12] VITALS: BP 127/68; PULSE 67; O2SAT 92
--- NOTE | 2016-11-20 12:54 | Discharge Instructions ---
Discharge Instructions Date of Service Nov 20, 2016. Admission Reason for Admission: Bilateral Plerual Effusion, Right Lower Lobe Discharge Discharge Diagnosis / Problem: Acute Hypoxic resp failure, CHF Discharge Goals Goal(s): Decrease discomfort, Improve function, Increase independence Activity Recommendations Activity Limitations: resume your previous activity . Instructions / Follow-Up Instructions / Follow-Up -Please follow up with Cardiology (Dr. Santiago Hernandez) within 1-2 wks -Please follow up with Primary Care Provider 1-2 wks -Please take medication as prescribed -If you experience Increased Shortness of breath, consider taking additional dose of Lasix -If you experience Chest pain, palpitation, fevers, chills, bleeding, call clinic or come to emergency dept. Current Hospital Diet Patient's current hospital diet: AHA Diet (Heart Healthy) Discharge Diet Recommended Diet: Regular Diet, AHA Diet (Heart Healthy) Procedures Procedures Performed: CHEST ONE VIEW PORTABLE HISTORY: EVALUATE RESPIRATORY DISTRESS.DYSPNEA COMPARISON: Chest 04/17/2016. FINDINGS: The heart remains mildly enlarged. There is mild interstitial pulmonary edema and small bilateral pleural effusions. No pneumothorax. Hazy appearance to the lung bases likely represent the layering pleural fluid. Cardiac valve prosthesis is noted. IMPRESSION: Progression of the mild pulmonary edema and small bilateral pleural effusions. ] CHEST 2 VIEWS ROUTINE CLINICAL HISTORY: LLL crackles, hemoptysis COMPARISON STUDY: 11/16/2016 FINDINGS: The heart is enlarged. A valvular prosthesis is visualized. There is persistent blunting of both lateral costophrenic angles. Bibasilar interstitial opacities are evident. While likely secondary to mild edema, an inflammatory process could appear similar.[ IMPRESSION: Persistent cardiomegaly, small bilateral pleural effusions, and by basilar interstitial opacities. While likely secondary to basilar interstitial edema, and inflammatory process could appear similar. Pending Studies Studies pending at discharge: no Laboratory Results Lipid Panel Test 11/18/16 04:30 Range/Units Triglycerides Level 51 0-150 mg/dl Cholesterol Level 83 0-200 mg/dl HDL Cholesterol 29 mg/dl Cholesterol/HDL Ratio 2.9 LDL Cholesterol, Calculated 44 mg/dl Medical Emergencies . Who to Call and When: Medical Emergencies: If at any time you feel your situation is an emergency, please call 911 immediately. . Non-Emergent Contact Non-Emergency issues call your: Primary Care Provider, [employer] Call Non-Emergent contact if: you have a fever, your pain is not controlled, wound has increased drainage, you have any medication questions . . "Provider Documentation" section prepared by Jc Martínez. . VTE Core Measure Inpt VTE Proph given/why not?: Warfarin (Coumadin) Resident Tracking Resident Involvement: Resident Care Provided Care Provided: Adult Hospital Medicine
[2016-11-20 15:33] VITALS: BP 147/80; PULSE 63; TEMP 36.6; O2SAT 93
[2016-11-20] MEDS: WARFARIN SOD 3 MG TAB PO SCH (15:33)
[2016-11-20] MEDS ORDERED: ATOR-24 PO (20:15)
[2016-11-20] MEDS ORDERED: CLOP1TAB15 PO (20:15)
[2016-11-20] MEDS ORDERED: DVN80 PO (20:15)
--- NOTE | 2016-11-20 20:28 | Discharge Summary ---
Discharge Summary Date of Service Nov 20, 2016. (Jc Martínez MD) Discharge Summary Admission Date: Nov 16, 2016 at 21:48 Discharge Date: Nov 20, 2016 Discharge Disposition: Home with services Principal Diagnosis: CHF exacerbation Problems/Secondary Diagnoses: (1) CHF (congestive heart failure) Status: Chronic Immunizations: Have You Had Influenza Vaccine: Yes Influenza Vaccine Date: Apr 03, 2012 History of Tetanus Vaccine?: HAD IN 2011 History of Pneumococcal: HAD IN THE PAST History of Hepatitis B Vaccine: Unknown Procedures: CHEST ONE VIEW PORTABLE HISTORY: EVALUATE RESPIRATORY DISTRESS.DYSPNEA COMPARISON: Chest 04/17/2016. FINDINGS: The heart remains mildly enlarged. There is mild interstitial pulmonary edema and small bilateral pleural effusions. No pneumothorax. Hazy appearance to the lung bases likely represent the layering pleural fluid. Cardiac valve prosthesis is noted. IMPRESSION: Progression of the mild pulmonary edema and small bilateral pleural effusions. [~ rep ct add3]] CHEST 2 VIEWS ROUTINE CLINICAL HISTORY: LLL crackles, hemoptysis COMPARISON STUDY: 11/16/2016 FINDINGS: The heart is enlarged. A valvular prosthesis is visualized. There is persistent blunting of both lateral costophrenic angles. Bibasilar interstitial opacities are evident. While likely secondary to mild edema, an inflammatory process could appear similar.[ IMPRESSION: Persistent cardiomegaly, small bilateral pleural effusions, and by basilar interstitial opacities. While likely secondary to basilar interstitial edema, and inflammatory process could appear similar. Consultations: Cardiology (Jc Martínez MD) Medication Reconciliation New Medications: Atorvastatin (Lipitor) 40 Mg Tab 1 TAB PO DAILY for 30 Days, #30 TAB 2 Refills Clopidogrel (Plavix) 75 Mg Tab 75 MG PO DAILY for 30 Days, #30 TAB 1 Refill Valsartan (Diovan) 80 Mg Tab 80 MG PO DAILY for 30 Days, #30 TAB 1 Refill Continued Medications: Carvedilol (Coreg) 25 Mg Tab 25 MG PO BID, TAB Furosemide (Furosemide) 40 Mg Tab 40 MG PO QAM for 30 Days, #30 TAB 1 Refill Ipratropium-Albuterol (Combivent Respimat) 1 Aer Aer 1 PUFFS INH QID for 30 Days, #1 3 Refills Nitroglycerin (Nitrostat) 0.4 Mg Tab 0.4 MG UT PRN, 0 Refills Omeprazole (Prilosec) 20 Mg Capcr 20 MG PO DAILY, 0 Refills Potassium Chloride (Klor-Con M20) 20 Meq Tabcr 20 MEQ PO QAM for 30 Days, #30 1 Refill Warfarin Sod (Jantoven) 5 Mg Tab 5 MG PO MWF, TAB Warfarin Sod (Jantoven) 5 Mg Tab 2.5 MG PO DIRECTED, TAB TAKE 2.5MG ON SATURDAY, SATURDAY, SATURDAY AND SATURDAY Discontinued Medications: Simvastatin (Zocor) 5 Mg Tab 5 MG PO QPM, TAB Referrals At Discharge Follow up Referrals: [employer]ing M[employer]icer Referral - Within 1-2 Weeks @ [facility] with Santiago Hernandez MD Discharge Exam Physical Exam: General Appearance: WD/WN, no apparent distress Neck: supple, no carotid bruits, trachea midline Respiratory/Chest: chest non-tender, lungs clear, + pertinent finding (Dec' d breath sounds madhuri lung bases) Cardiovascular: regular rate, rhythm, no edema, no murmur Abdomen / GI: normal bowel sounds, non tender, soft Extremities: no calf tenderness, no pedal edema Neurologic/Psychiatric: alert, normal mood/affect Skin: normal color, warm/dry (Jc Martínez MD) Hospital Course HPI: The patient is a 86-year-old male with hx of Afib/Aflutter , CAD, COPD, presents emergency department with acute onset of worsening shortness of breath over the past 7 hours prior to arrival. His daughter reports that his chronic shortness of breath secondary to COPD, but he reported to her that his breathing was worse and he felt nauseous around 1700 hrs. this evening. He has had a cough productive of yellow sputum. He has noted worsening swelling was legs in the past few days, and has been diagnosed with congestive heart failure in the past. He did take his Lasix 40 mg this morning as directed. He has not had any recent travel, or any sick exposures. Course: IN ED, patient was afebrile with no leukocytosis, CXR showed pulmonary edema and small bilateral pleural effusions. HE was covered for possible RLL Pnuemonia , placed on ceftriaxone 1 g, levofloxacin 500 mg.This was disconinued following admission when pneumonia was conisdered less likely. Patient was managed for possible COPD exaceerbationolu-Medrol 30 mg IV every 8 hours and Xopenex/Atrovent nebulizer. He was primarily mmanaged for CHF exacerbation which was consitent with CXR during admission. He was continued on home carvedilol 25 mg by mouth twice a day, furosemide 40 mg by mouth every morning with added IV Lasix as necessary. He arrived with arrived with INR of 3.4 whole on home regimen of warfarin with alternating days of 2.5 and 5mg to 3mg daily. EKG was performed showing Twave inversions. Cardiology was consulted following Patient was started on plavix, Valsartan, switched from simvastatin to Lipitor. Patient clinically improved during hospital stay and was discharged with Cardiology follow up. Total Time Spent: Less than 30 minutes This includes examination of the patient, discharge planning, medication reconciliation, and communication with other providers. (Jc Martínez MD) Resident Physician Supervision Note: I was present with Dr. Martínez during the history and exam. I discussed the case with the resident and agree with the findings and plan as documented in the note. Any exceptions or clarifications are listed here: The patient stated that he feels as well as he has felt - in terms of his breathing - in quite some time. Discussed follow up with PCP. Home nursing also consulted for CHF program. Also discussed possibility of additional help/[facility]. Documented By: Timothy De Souza Total Time Spent: Less than 30 minutes (Timothy De Souza,D.O.) Discharge Instructions Please refer to the electronic Patient Visit Report (Discharge Instructions) for additional information. (Jc Martínez MD) Follow-Up Cardiology (Santiago Hernandez MD) (Jc Martínez MD) Additional Copies To Sugey Fields M.D. Resident Tracking Resident Involvement: Resident Care Provided Care Provided: Adult Hospital Medicine (Jc Martínez MD)
[2016-11-27] MEDS ORDERED: CRG125 PO (09:46)
== END 2016-11-20 15:50 | disposition home health service (06) | DRG 292 ==
LOC: EDBD 18:39 → C.EDB 18:41 → C.2T 21:48 → ENRESERV 21:56 → C.MS2W 11-18 09:27 → ENRESERV 11-18 10:07
PROVIDERS: ADMIT Hospitalist; ATTEND Family Medicine
DX: I50.33 Acute on chronic diastolic (congestive) heart failure (principal); I48.92 Unspecified atrial flutter; I24.8 Other forms of acute ischemic heart disease; J44.1 Chronic obstructive pulmonary disease with (acute) exacerbation; I48.91 Unspecified atrial fibrillation; I25.10 Atherosclerotic heart disease of native coronary artery without angina pectoris; Z82.49 Family history of ischemic heart disease and other diseases of the circulatory system; Z87.891 Personal history of nicotine dependence; Z79.01 Long term (current) use of anticoagulants; Z95.1 Presence of aortocoronary bypass graft; I11.0 Hypertensive heart disease with heart failure; E78.5 Hyperlipidemia, unspecified; N40.0 Benign prostatic hyperplasia without lower urinary tract symptoms; Z87.11 Personal history of peptic ulcer disease; K21.9 Gastro-esophageal reflux disease without esophagitis

== ENCOUNTER 2016-11-21 09:58 | Inpatient (IN) | payer OTHER ==
[~2016-11-21] VITALS: Ht 180.3 cm; Wt 90.0 kg
[~2016-11-21 09:58] MED LIST changes: -ASPEC81 PO; +ATOR-24 PO; +CLOP1TAB15 PO; +DVN80 PO; -LVQ500 PO; -PRD20 PO; -SIMV5TAB2 PO; +WARF5TAB7 PO
[2016-11-21 10:44] LABS: BASO % 0.1 %; BASO ABS # 0.01 K/uL (0-0.2); COMPLETE YES; EOS % 0.3 %; HEMATOCRIT 48.1 % (42-52); IG% 0.4 %; LYMPH % 13.3 %; LYMPH ABS # 1.19 K/uL (1.2-3.4); MEAN CELL VOLUME 94.9 fL (80-100); MEAN CORPUSCULAR HEMOGLOBIN 32.7 pg (25-34); MEAN CORPUSCULAR HGB CONC 34.5 g/dl (32-36); MEAN PLATELET VOLUME 9.3 fL (7.4-10.4); MONO % 13.6 %; NEUT % 72.3 %; PLATELET COUNT 178 K/uL (130-400); RED BLOOD COUNT 5.07 M/uL (4.7-6.1); WHITE BLOOD COUNT 8.95 K/uL (4.8-10.8)
[2016-11-21] MEDS ORDERED: ALBUT/IPRATROP 3MG/0.5MG NEB 3 ML VIAL INH STA (10:51)
--- NOTE | 2016-11-21 10:51 | DIAGNOSTIC IMAGING REPORT ---
CHEST ONE VIEW PORTABLE CLINICAL HISTORY: sob dyspnea COMPARISON STUDY: 11/19/2016 FINDINGS: Mild stable cardiomegaly. Developing components of congestive failure. Prior valve replacement. Diaphragms are smooth. Trace pleural fluid lateral calcific angles. IMPRESSION: Developing and or progressive congestive failure Electronically signed by: Dg Jiang M.D. 11/21/2016 10:50 AM Dictated Date/Time: 11/21/2016 10:49 AM
[2016-11-21 11:09] LABS: BUN/CREATININE RATIO 29.4 (10-20); CALCIUM 7.2 mg/dl (8.5-10.1); CREATININE 0.92 mg/dl (0.60-1.40); POTASSIUM 4.5 mmol/L (3.5-5.1)
[2016-11-21 11:14] LABS: ALB/GLOB RATIO 0.7 (0.9-2)
[2016-11-21 11:19] LABS: INR 2.2 (0.9-1.1); PARTIAL THROMBOPLASTIN RATIO 1.5; PROTHROMBIN TIME (PATIENT) 24.8 SECONDS (9.0-12.0)
[2016-11-21] MEDS ORDERED: FUROSEMIDE 40 MG/4 ML VIAL IV STA (12:25)
[2016-11-21 12:49] VITALS: O2SAT 94; Ht 180.3 cm; Wt 90.0 kg
--- NOTE | 2016-11-21 14:26 | History and Physical ---
History & Physical Date & Time of Service: Nov 21, 2016 at 14:04 Chief Complaint: Respiratory Primary Care Physician: Sugey Fields M.D. History of Present Illness Source: patient, family, clinic records, hospital records This patient is a pleasant 86-year-old male that presents to the emergency department with complaints of worsening shortness of breath, and a productive cough with yellow sputum that started last night. The patient was just discharged from the hospital yesterday around 3 PM. He was admitted for a CHF exacerbation in addition to bronchitis. He was treated with Lasix, nebulizers and steroids. The patient felt that his breathing never completely returned to normal. He does not typically were oxygen at home. He denies any chest pain or pressure. No dizziness. He denies any fever or chills. The patient weighed himself this morning. He weighs 220 pounds. He says this is fairly typical for him. The patient's daughter however thought that his face looked "puffy this morning." The patient was discharged home on Lasix 40 mg daily, which is reported as his usual dose. Past Medical/Surgical History Medical Problems: History of coronary artery disease status post CABG 3 in 1999 in addition to an MVR. Procedure was complicated with wound dehiscence and a staph infection. Paroxysmal A. fib/A flutter COPD Hypertension Family History Heart disease Social History Smoking Status: Former Smoker (quit smoking in 1988) Alcohol Use: none Drug Use: none Marital Status: Housing status: lives alone Occupational Status: retired Immunizations History of Influenza Vaccine: Yes Influenza Vaccine Date: Apr 03, 2012 History of Tetanus Vaccine?: HAD IN 2011 History of Pneumococcal: HAD IN THE PAST History of Hepatitis B Vaccine: Unknown Multi-Drug Resistant Organisms History of MDRO: No Allergies Coded Allergies: Aspirin (Verified Adverse Reaction, Intermediate, GI ULCERATION- WHEN TAKEN WITH COUMADIN, 11/21/16) Black Pepper (Verified Adverse Reaction, Mild, 11/21/16) Lisinopril (Verified Adverse Reaction, Mild, 11/21/16) Sulfa Antibiotics (Verified Adverse Reaction, Unknown, "SULFA DRUGS": HAS TOLERATED LASIX IN PAST, 11/21/16) Home Medications Scheduled Atorvastatin (Lipitor), 1 TAB PO DAILY Carvedilol (Coreg), 25 MG PO BID Clopidogrel (Plavix), 75 MG PO DAILY Furosemide (Furosemide), 40 MG PO QAM Ipratropium-Albuterol (Combivent Respimat), 1 PUFFS INH QID Nitroglycerin (Nitrostat), 0.4 MG UT PRN Omeprazole (Prilosec), 20 MG PO DAILY Potassium Chloride (Klor-Con M20), 20 MEQ PO QAM Valsartan (Diovan), 80 MG PO DAILY Warfarin Sod (Jantoven), 5 MG PO MWF Warfarin Sod (Jantoven), 2.5 MG PO DIRECTED Review of Systems 10 system review performed and negative unless noted in HPI or below Physical Exam Vital Signs Date Time Temp Pulse Resp B/P (MAP) Pulse Ox O2 Delivery O2 Flow Rate FiO2 11/21/16 12:30 84 11/21/16 11:12 77 18 145/76 95 Nebulizer 11/21/16 10:23 94 Nasal Cannula 2.0 11/21/16 10:23 94 Nasal Cannula 4.0 11/21/16 10:11 91 11/21/16 10:10 36.8 92 20 117/71 87 Room Air 11/21/16 10:10 88 Room Air General Appearance: + mild distress (mild respiratory distress) Head: normocephalic Eyes: EOMI ENT: + pertinent finding (oral mucosa fairly moist) Neck: + pertinent finding (mild JVD noted) Respiratory/Chest: + pertinent finding (rhonchorous breath sounds bilaterally. Crackles at the left base. Mild wheezing throughout. Slight tachypnea noted. ) Cardiovascular: no murmur, + irregularly irregular Abdomen/GI: normal bowel sounds, non tender, soft Extremities/Musculoskelatal: + pertinent finding (trace pitting edema in the lower extremities bilaterally without any erythema, tenderness or warmth appreciated.) Neurologic/Psych: no motor/sensory deficits, oriented x 3 Skin: warm/dry Diagnostics Laboratory Results Results Past 24 Hours Test 11/21/16 10:15 11/21/16 11:10 Range/Units White Blood Count 8.95 4.8-10.8 K/uL Red Blood Count 5.07 4.7-6.1 M/uL Hemoglobin 16.6 14.0-18.0 g/dL Hematocrit 48.1 42-52 % Mean Corpuscular Volume 94.9 80-100 fL Mean Corpuscular Hemoglobin 32.7 25-34 pg Mean Corpuscular Hemoglobin Concent 34.5 32-36 g/dl Platelet Count 178 130-400 K/uL Mean Platelet Volume 9.3 7.4-10.4 fL Neutrophils (%) (Auto) 72.3 % Lymphocytes (%) (Auto) 13.3 % Monocytes (%) (Auto) 13.6 % Eosinophils (%) (Auto) 0.3 % Basophils (%) (Auto) 0.1 % Neutrophils # (Auto) 6.46 1.4-6.5 K/uL Lymphocytes # (Auto) 1.19 1.2-3.4 K/uL Monocytes # (Auto) 1.22 0.11-0.59 K/uL Eosinophils # (Auto) 0.03 0-0.5 K/uL Basophils # (Auto) 0.01 0-0.2 K/uL RDW Standard Deviation 50.9 36.4-46.3 fL RDW Coefficient of Variation 14.9 11.5-14.5 % Immature Granulocyte % (Auto) 0.4 % Immature Granulocyte # (Auto) 0.04 0.00-0.02 K/uL Prothrombin Time 24.8 9.0-12.0 SECONDS Prothromb Time International Ratio 2.2 0.9-1.1 Activated Partial Thromboplast Time 38.0 21.0-31.0 SECONDS Partial Thromboplastin Ratio 1.5 Sodium Level 144 136-145 mmol/L Potassium Level 4.5 3.5-5.1 mmol/L Chloride Level 109 98-107 mmol/L Carbon Dioxide Level 31 21-32 mmol/L Anion Gap 4.0 3-11 mmol/L Blood Urea Nitrogen 27 7-18 mg/dl Creatinine 0.92 0.60-1.40 mg/dl Est Creatinine Clear Calc Drug Dose 70.7 ml/min Estimated GFR () 87.6 Estimated GFR (Non- 75.6 BUN/Creatinine Ratio 29.4 10-20 Random Glucose 84 70-99 mg/dl Calcium Level 7.2 8.5-10.1 mg/dl Total Bilirubin 0.9 0.2-1 mg/dl Aspartate Amino Transf (AST/SGOT) 127 15-37 U/L Alanine Aminotransferase (ALT/SGPT) 173 12-78 U/L Alkaline Phosphatase 180 45-117 U/L Pro-B-Type Natriuretic Peptide 1602 0-1800 pg/ml Total Protein 4.6 6.4-8.2 gm/dl Albumin 1.9 3.4-5.0 gm/dl Globulin 2.7 2.5-4.0 gm/dl Albumin/Globulin Ratio 0.7 0.9-2 Lactic Acid Level 1.2 0.4-2.0 mmol/L Microbiology Results 11/21/16 Blood Culture, Received Pending 11/21/16 Blood Culture, Received Pending Diagnostic Radiology Patient: GENE WOLFE Address1: [address] [facility] Rec: [id number] Address2: Acct ID: [id number] [facility] Zip: [place] [address] Date: 1930 Sex: M Room/Bed: Ref Phy: Sugey Fields M.D. SC: ALLEN Att Phy: Report #: [id number] Karly Phy: Sugey Fields M.D. Test: CXR1P Admit Phy: Breakdown Person: LAURYN Interpreting Phy: Dg Jiang M.D. Diagnosis: RESPIRATORY Ordering Phy: ED, PROTOCOL Service Date: 11/21/16 Admit Date: 11/21/16 MNE: [id number] CONF: DICTATED BY: Dg Jiang M.D.]] CC: Sugey Fields M.D. ED,PROTOCOL Karson Sweeney MD Endcc: [~ rep ct add3]] CHEST ONE VIEW PORTABLE CLINICAL HISTORY: sob dyspnea COMPARISON STUDY: 11/19/2016 FINDINGS: Mild stable cardiomegaly. Developing components of congestive failure. Prior valve replacement. Diaphragms are smooth. Trace pleural fluid lateral calcific angles. IMPRESSION: Developing and or progressive congestive failure Electronically signed by: Dg Jiang M.D. 11/21/2016 10:50 AM Dictated Date/Time: 11/21/2016 10:49 AM The status of this report is Signed. Draft = Not yet reviewed or approved by Radiologist. Signed = Reviewed and approved by Radiologist. <AttendingPhy></AttendingPhy> <FamilyPhy>Sugey Fields M.D.</FamilyPhy > <PrimaryPhy>Sugey Fields M.D.</PrimaryPhy> <UnitNumber>[id number]</ UnitNumber> <VisitNumber>[id number]</VisitNumber> <PatientName>GENE WOLFE </PatientName> <DateOfBirth>1930</DateOfBirth> <Location>[facility].ED[facility]</Location> <ServiceDate>11/21/16</ServiceDate> <MNE>ESINDI</MNE> <OrderingPhy>ED, PROTOCOL< /OrderingPhy> <OrderingPhyMNE>f rep ord dr marrero</OrderingPhyMNE> <DictatingPhyMNE >f rep dict dr marrero</DictatingPhyMNE> <CCListMNE>f rep ct franke</CCListMNE> < AdmittingPhyMNE>f pt admit dr marrero</AdmittingPhyMNE> <AttendingPhyMNE>f pt attend dr marrero</AttendingPhyMNE> <ConsultingPhyMNE>f pt consult dr marrero</ConsultingPhyMNE> <FamilyPhyMNE>f pt fam dr marrero</FamilyPhyMNE> <OtherPhyMNE>f pt other dr marrero</OtherPhyMNE> < PrimaryPhyMNE>f pt prim care dr marrero</PrimaryPhyMNE> <ReferringPhyMNE>f pt referring dr marrero</ReferringPhyM EKG Atrial flutter 91 bpm T-wave inversions noted in the inferior and lateral leads No significant change from prior EKG. Impression Assessment and Plan 86-year-old male with a history of diastolic CHF, coronary artery disease, paroxysmal A. fib/A flutter presents the emergency department with complaints of worsening shortness of breath. Found to be hypoxic in the emergency department. X-ray is consistent with worsening heart failure. Acute respiratory failure with hypoxia likely multifactoral. The patient's chest x-rays consistent with worsening failure. In addition, his weight is up 4 kg from a few days ago. There is definitely a heart failure component. He also has a productive cough and rhonchorous breath sounds consistent with bronchitis. The patient is a former smoker and probably has underlying COPD. -Admit to telemetry -Begin Lasix 20 mg IV BID -Upon review of old records, the last cardiology note from October indicates that the patient's home dose of Lasix should be 60 mg daily. The patient was discharged on 40 mg daily. His dose may need to be increased upon discharge. -Strict I's and O's -Standing scale weights daily -For bronchitis, begin azithromycin and Rocephin. Treat for a total of 5 days. Solu-Medrol 40 mg IV BID. Xopenex/Atrovent nebulizer treatments scheduled q 6 hours -Continue O2. Begin to wean tomorrow possible. History of paroxysmal A. fib/A flutter-rate controlled. INR therapeutic. -Continue the following medications: Warfarin 5 mg Saturday, Saturday, Saturday. Warfarin 2.5 mg Saturday, , Saturday, Saturday Coreg 25 mg BID CAD s/p CABG/HTN -continue Plavix 75 mg daily, valsartan 80 mg daily and beta ivy as noted above DVT prophylaxis -warfarin -TEDS, SCDs CODE STATUS -LEVEL I FULL CODE I personally and independently interviewed and examined the patient I reviewed labs and imaging I agree with above mentioned physical exam, History and ROS I discussed and formulated the assessment and plan with Mrs. Jett 86-year-old male who was yesterday discharged after being treated for CHF. as per daughter he continues to cough yellowish sputum. denies fever. SOB started yesterday. rest of ROS is positive for cough and SOB , rest of ROS is negative PE , all exam is negative except lungs, B/L decrease air entry, B/L Rhonchi, bibasal rales. assessment: Acute on chronic diastolic CHF S/P MVR PA A Fib bronchitis/early pneumonia Plan: place marc lasix 20mg IV BID, monitor renal function azithro/CTXn and lactinex for bronchitis/early pneumonia will need cardiac rehab and tele cardiac at home upon discharge Pamela Ruther[facility] Hospitalist Level of Care Telemetry Resuscitation Status FULL RESUSCITATION VTE Prophylaxis VTE Risk Assessment Done? Y/N: Yes Given or contraindicated: Warfarin (Coumadin), T.E.D. Stockings, SCD's
[2016-11-21] MEDS ORDERED: ALUMINUM/MAGNESIUM/SIMETH (MAALOX MAX) 30 ML UDC PO PRN (14:30)
[2016-11-21] MEDS ORDERED: NITROGLYCERIN 0.4 MG SL PER TAB CHARGE SL PRN (14:30)
[2016-11-21] MEDS ORDERED: MAGNESIUM HYDROXIDE SUSP 30 ML UDC PO PRN (14:30)
[2016-11-21] MEDS ORDERED: LEVALBUTEROL/IPRATROPIUM NEB INH SCH (14:30)
[2016-11-21] MEDS ORDERED: ACETAMINOPHEN 325 MG TAB PO PRN (14:30)
[2016-11-21] MEDS ORDERED: AZITHROMYCIN 250 MG TAB PO SCH (14:30)
[2016-11-21 15:44] VITALS: BP 139/76; PULSE 72; TEMP 36.5; O2SAT 92
[2016-11-21] MEDS: CEFTRIAXONE SOD INJ 1 GM in DEXTROSE 5% ADD-VANTAGE 50ML 50 ML IV SCH (16:54)
[2016-11-21] MEDS: FUROSEMIDE INJ 20 MG in SYRINGE 0 ML IV SCH (16:55)
[2016-11-21] MEDS: LACTOBACILLUS ACIDOPHILUS 1 GM PACK PO SCH (16:55)
[2016-11-21] MEDS: METHYLPREDNISOLONE IV 40 MG in SYRINGE 0 ML IV SCH (16:55)
--- NOTE | 2016-11-21 17:26 | EMERGENCY ROOM VISIT NOTE ---
History Report prepared by Michael: Diane Landeros Under the Supervision of: Dr. Karson Sweeney M.D. First contact with patient: 10:31 Chief Complaint: RESPIRATORY PROBLEMS Stated Complaint: RESPIRATORY Nursing Triage Summary: pt here from home via [facility]. pt was discharged from here yesterday after several days with chf. pt states in middle of night became much more sob, has prod cough. pt has min. pedal edema. scattered rales and rhonchi,pt has exertional increased sob. History of Present Illness The patient is an 86 year old male who presents to the Emergency Room with complaints of persistent, worsening respiratory problems that began last evening. The patient's daughter reports that the patient was evaluated from Saturday-Saturday for similar symptoms. She reports that the patient has a history of heart problems, but denies any history of lung problems until his most recent hospitalization. The patient's daughter notes that the patient now has a history of COPD. The patient denies wearing supplemental oxygen at home. The patient states that yesterday he became short of breath and developed a productive cough with yellow sputum. He states that this morning, his symptoms had worsened. The patient reports a history of a valve surgery and double bypass. He denies any history of strokes. The patient reports that he is on Plavix. He denies any increased edema to his lower legs. The patient denies any relief from the nebulizer treatments in the hospital, but states that his inhalers at home have helped. He states that upon discharge his breathing was fair, but denies it being normal. The patient reports generalized weakness. The patient denies any missed medications. Pt denies LOC, headache, fevers, chills, diaphoresis, visual changes, neck pain, nausea, vomiting, abdominal pain , back pain, melena, hematochezia, urinary symptoms, numbness, lymphadenopathy, rash, or other complaints. Source of History: patient, family (daughter) Onset: last evening Position: other (global) Quality: other (respiratory problems) Timing: worsening, other (persistent) Associated Symptoms: + cough (productive, yellow sputum), + SOB, + weakness Review of Systems See HPI for pertinent positives and negatives. A total of ten systems were reviewed and were otherwise negative. Past Medical & Surgical Medical Problems: (1) Acute respiratory failure (2) Bilateral pleural effusion (3) CHF (congestive heart failure) (4) CHF exacerbation (5) Hypertension (6) Mitral valve disorder (7) Right lower lobe pneumonia Family History Heart disease Social History Smoking Status: Never Smoker Alcohol Use: none Drug Use: none Marital Status: Housing Status: lives alone Occupation Status: retired Current/Historical Medications Scheduled Atorvastatin (Lipitor), 1 TAB PO DAILY Carvedilol (Coreg), 25 MG PO BID Clopidogrel (Plavix), 75 MG PO DAILY Furosemide (Furosemide), 40 MG PO QAM Ipratropium-Albuterol (Combivent Respimat), 1 PUFFS INH QID Nitroglycerin (Nitrostat), 0.4 MG UT PRN Omeprazole (Prilosec), 20 MG PO DAILY Potassium Chloride (Klor-Con M20), 20 MEQ PO QAM Valsartan (Diovan), 80 MG PO DAILY Warfarin Sod (Jantoven), 5 MG PO MWF Warfarin Sod (Jantoven), 2.5 MG PO DIRECTED Allergies Coded Allergies: Aspirin (Verified Adverse Reaction, Intermediate, GI ULCERATION- WHEN TAKEN WITH COUMADIN, 11/21/16) Black Pepper (Verified Adverse Reaction, Mild, 11/21/16) Lisinopril (Verified Adverse Reaction, Mild, 11/21/16) Sulfa Antibiotics (Verified Adverse Reaction, Unknown, "SULFA DRUGS": HAS TOLERATED LASIX IN PAST, 11/21/16) Physical Exam Vital Signs Date Time Temp Pulse Resp B/P (MAP) Pulse Ox O2 Delivery O2 Flow Rate FiO2 11/21/16 14:32 161/117 11/21/16 14:30 77 19 96 11/21/16 14:30 71 22 161/117 95 Nasal Cannula 4.0 11/21/16 12:49 94 Nasal Cannula 2.0 11/21/16 12:30 84 11/21/16 12:30 94 20 133/78 94 Room Air 11/21/16 11:12 77 18 145/76 95 Nebulizer 11/21/16 10:23 94 Nasal Cannula 2.0 11/21/16 10:23 94 Nasal Cannula 4.0 11/21/16 10:11 91 11/21/16 10:10 36.8 92 20 117/71 87 Room Air 11/21/16 10:10 88 Room Air Physical Exam GENERAL: Awake, alert, well-appearing, in no distress HENT: Normocephalic, atraumatic. Oropharynx unremarkable. EYES: Chemosis noted. Sclera non-icteric. NECK: Supple. No nuchal rigidity. FROM. No JVD. RESPIRATORY: Rhonchi and crackles bilaterally. Mildly dyspneic appearing. CARDIAC: Regular rate, normal rhythm. Extremities warm and well perfused. Pulses equal. ABDOMEN: Soft, non-distended. No tenderness to palpation. No rebound or guarding. No masses. RECTAL: Deferred. MUSCULOSKELETAL: Chest examination reveals no tenderness. The back is symmetrical on inspection without obvious abnormality. There is no CVA tenderness to palpation. No joint edema. LOWER EXTREMITIES: Calves are equal size bilaterally and non-tender. 1+ lower extremity edema, chronic venous discoloration. NEURO: Normal sensorium. No sensory or motor deficits noted. SKIN: No rash or jaundice noted. Medical Decision & Procedures ER Provider Diagnostic Interpretation: X-ray: Per my interpretation, radiologist review. CHEST ONE VIEW PORTABLE CLINICAL HISTORY: sob dyspnea COMPARISON STUDY: 11/19/2016 FINDINGS: Mild stable cardiomegaly. Developing components of congestive failure. Prior valve replacement. Diaphragms are smooth. Trace pleural fluid lateral calcific angles. IMPRESSION: Developing and or progressive congestive failure Electronically signed by: Dg Jiang M.D. 11/21/2016 10:50 AM Dictated Date/Time: 11/21/2016 10:49 AM Laboratory Results 11/21/16 10:15 Red Blood Count 5.07, Mean Corpuscular Volume 94.9, Mean Corpuscular Hemoglobin 32.7, Mean Corpuscular Hemoglobin Concent 34.5, Mean Platelet Volume 9.3, Neutrophils (%) (Auto) 72.3, Lymphocytes (%) (Auto) 13.3, Monocytes (%) (Auto) 13.6, Eosinophils (%) (Auto) 0.3, Basophils (%) (Auto) 0.1, Neutrophils # (Auto ) 6.46, Lymphocytes # (Auto) 1.19, Monocytes # (Auto) 1.22, Eosinophils # (Auto ) 0.03, Basophils # (Auto) 0.01 11/21/16 10:15 Test 11/21/16 10:15 11/21/16 11:10 White Blood Count 8.95 K/uL (4.8-10.8) Red Blood Count 5.07 M/uL (4.7-6.1) Hemoglobin 16.6 g/dL (14.0-18.0) Hematocrit 48.1 % (42-52) Mean Corpuscular Volume 94.9 fL (80-100) Mean Corpuscular Hemoglobin 32.7 pg (25-34) Mean Corpuscular Hemoglobin Concent 34.5 g/dl (32-36) Platelet Count 178 K/uL (130-400) Mean Platelet Volume 9.3 fL (7.4-10.4) Neutrophils (%) (Auto) 72.3 % Lymphocytes (%) (Auto) 13.3 % Monocytes (%) (Auto) 13.6 % Eosinophils (%) (Auto) 0.3 % Basophils (%) (Auto) 0.1 % Neutrophils # (Auto) 6.46 K/uL (1.4-6.5) Lymphocytes # (Auto) 1.19 K/uL (1.2-3.4) Monocytes # (Auto) 1.22 K/uL (0.11-0.59) Eosinophils # (Auto) 0.03 K/uL (0-0.5) Basophils # (Auto) 0.01 K/uL (0-0.2) RDW Standard Deviation 50.9 fL (36.4-46.3) RDW Coefficient of Variation 14.9 % (11.5-14.5) Immature Granulocyte % (Auto) 0.4 % Immature Granulocyte # (Auto) 0.04 K/uL (0.00-0.02) Prothrombin Time 24.8 SECONDS (9.0-12.0) Prothromb Time International Ratio 2.2 (0.9-1.1) Activated Partial Thromboplast Time 38.0 SECONDS (21.0-31.0) Partial Thromboplastin Ratio 1.5 Anion Gap 4.0 mmol/L (3-11) Est Creatinine Clear Calc Drug Dose 70.7 ml/min Estimated GFR () 87.6 Estimated GFR (Non- 75.6 BUN/Creatinine Ratio 29.4 (10-20) Calcium Level 7.2 mg/dl (8.5-10.1) Total Bilirubin 0.9 mg/dl (0.2-1) Aspartate Amino Transf (AST/SGOT) 127 U/L (15-37) Alanine Aminotransferase (ALT/SGPT) 173 U/L (12-78) Alkaline Phosphatase 180 U/L (45-117) Pro-B-Type Natriuretic Peptide 1602 pg/ml (0-1800) Total Protein 4.6 gm/dl (6.4-8.2) Albumin 1.9 gm/dl (3.4-5.0) Globulin 2.7 gm/dl (2.5-4.0) Albumin/Globulin Ratio 0.7 (0.9-2) Lactic Acid Level 1.2 mmol/L (0.4-2.0) Laboratory results reviewed by me Medications Administered Medications (Trade) Dose Ordered Sig/Meño Route Start Time Stop Time Status Last Admin Dose Admin Albuterol/ Ipratropium (Duoneb) 3 ml NOW STAT INH 11/21/16 10:51 11/21/16 10:53 DC 11/21/16 11:10 3 ML Furosemide (Lasix Inj) 40 mg NOW STAT IV 11/21/16 12:25 11/21/16 12:26 DC 11/21/16 14:07 40 MG ECG Indication: SOB/dyspnea Rate (beats per minute): 91 Rhythm: atrial flutter Findings: Q waves (Inferior), T-wave inversion (Lateral) Comparison ECG Date: 11/18/16 Change: When compared to EKG done on 11/18/16 A-flutter is old and lateral T wave changes are old ED Course 1036: The patient was evaluated in room B9. A complete history and physical exam was performed. 1051: Ordered DuoNeb 3 ml INH. 1228: I reevaluated the patient and he is resting comfortably. I discussed the exam findings with him and I discussed the treatment plan. He verbalized complete understanding and agreement. He is going to be evaluated for further treatment. 1225: Ordered Lasix Inj 40 mg IV. 1230: The monitor picked up that he had a non-sustained run of v-tach at this time. 1240: I discussed the patients case with [place] [facility] [place] is going to evaluate the patient for further treatment. Medical Decision Medication Reconciliation: I attest that I have personally reviewed the patient' s current medication list Blood pressure screening: Patient was found to have normal blood pressure on screening and does not require follow-up. Triage Nursing notes reviewed. The patient's presentation and history were concerning for SOB and productive cough. Etiologies such as pneumonia, COPD, reactive airway disease, CHF, cardiac ischemia, pulmonary embolism, pneumothorax, musculoskeletal, infections, gastrointestinal, as well as others were entertained. The patient is requiring supplemental oxygen. Chest xray is showing CHF. The patient was given IV Lasix. He was also treated with a DuoNeb. He was feeling somewhat better. His CBC was unremarkable. Chemistry panel did not reveal any abnormal findings. Cardiac markers negative. BNP is mildly elevated. LFTs mildly elevated. Consultation was made with internal medicine for further management. Consults Time Called: 1226 Consulting Physician: ROBBY Jefferson Returned Call: 1240 I discussed the patients case with ROBBY Jefferson. He is going to evaluate the patient for further treatment. Impression Primary Impression: CHF (congestive heart failure) Additional Impression: Hypoxia Scribe Attestation The scribe's documentation has been prepared under my direction and personally reviewed by me in its entirety. I confirm that the note above accurately reflects all work, treatment, procedures, and medical decision making performed by me. Departure Information Dispostion Being Evaluated By Hospitalist Sugey Franklin M.D. (PCP) Problem Qualifiers
[2016-11-21] MEDS ORDERED: AMOXICILLIN/CLAVULANATE TAB 875 MG TAB PO SCH (18:00)
[2016-11-21] MEDS: LEVALBUTEROL 1.25MG/0.5ML NEB INH SCH (19:27)
[2016-11-21] MEDS: IPRATROPIUM BROMIDE NEB SOLN 0.02% 2.5 ML VIAL INH SCH (19:27)
[2016-11-21 19:29] VITALS: PULSE 78; O2SAT 92
[2016-11-21 20:23] VITALS: BP 143/78; PULSE 66; TEMP 36.4; O2SAT 93
[2016-11-21 23:40] VITALS: BP 148/82; PULSE 65; TEMP 36.4; O2SAT 97
[2016-11-22] VITALS (11 sets, daily range): BP systolic 125–160; BP diastolic 75–90; PULSE 64–88; TEMP 36.3–36.8; O2SAT 91–98
[2016-11-22] MEDS: LEVALBUTEROL 1.25MG/0.5ML NEB INH SCH ×4 (02:26→19:30)
[2016-11-22] MEDS: IPRATROPIUM BROMIDE NEB SOLN 0.02% 2.5 ML VIAL INH SCH ×4 (02:26→19:30)
[2016-11-22] MEDS: METHYLPREDNISOLONE IV 40 MG in SYRINGE 0 ML IV SCH ×2 (03:23→16:15)
[2016-11-22 04:32] LABS: BASO % 0.2 %; BASO ABS # 0.01 K/uL (0-0.2); COMPLETE YES; HEMATOCRIT 50.5 % (42-52); IG% 0.5 %; LYMPH % 13.9 %; LYMPH ABS # 0.85 K/uL (1.2-3.4); MEAN CORPUSCULAR HEMOGLOBIN 30.5 pg (25-34); MEAN CORPUSCULAR HGB CONC 32.5 g/dl (32-36); MEAN PLATELET VOLUME 9.6 fL (7.4-10.4); MONO % 4.9 %; NEUT % 80.5 %; PLATELET COUNT 160 K/uL (130-400); RED BLOOD COUNT 5.37 M/uL (4.7-6.1); WHITE BLOOD COUNT 6.13 K/uL (4.8-10.8)
[2016-11-22 04:44] LABS: INR 1.9 (0.9-1.1); PROTHROMBIN TIME (PATIENT) 21.1 SECONDS (9.0-12.0)
[2016-11-22 05:05] LABS: BUN/CREATININE RATIO 25.7 (10-20); CALCIUM 7.4 mg/dl (8.5-10.1); CREATININE 0.97 mg/dl (0.60-1.40); POTASSIUM 4.5 mmol/L (3.5-5.1)
[2016-11-22 05:11] LABS: ALB/GLOB RATIO 0.7 (0.9-2); CKMB/CK RATIO 2.9 (0-3.0); PHOSPHORUS 4.5 mg/dl (2.5-4.9)
[2016-11-22] MEDS: FUROSEMIDE INJ 20 MG in SYRINGE 0 ML IV SCH ×2 (06:00→16:16)
[2016-11-22] MEDS: AZITHROMYCIN 250 MG TAB PO SCH (07:30)
[2016-11-22] MEDS: LACTOBACILLUS ACIDOPHILUS 1 GM PACK PO SCH ×3 (07:30→16:15)
--- NOTE | 2016-11-22 08:11 | Clinical Documentation Query ---
CLINICAL DOCUMENTATION QUERY 86 year old male who presents to the Emergency Room with complaints of persistent SOB. In your clinical opinion is this patient being managed for: ( ) Acute on chronic diastolic (preserved EF) heart failure treated with IV Lasix ( ) Other explanation of clinical findings (Please Explain) ( ) Unable to determine (Please Define) ( ) Need to Discuss ( ) Not Agree The medical record reflects the following clinical findings, treatment, and risk factors. Clinical Indicators: SOB, worsening heart failure by CXR, and crackles and rhonchi by exam Treatment: IV Lasix, daily weights, strict I/O's, Risk Factors: Age, CAD, chronic diastolic chf, HTN, Please clarify and document your clinical opinion in the progress notes and discharge summary. Terms such as "probable", "suspected", "likely", "questionable", "possible", or "still to be ruled out" are acceptable. IF IN AGREEMENT, YOU MUST DOCUMENT ABOVE DIAGNOSTIC STATEMENT IN DAILY PROGRESS NOTES AND DISCHARGE SUMMARY. This document is not part of the patient's record. Thank You, Reinier Mccarty, RN [phone]
[2016-11-22] MEDS ORDERED: FUROSEMIDE INJ 40 MG in SYRINGE 0 ML IV SCH (09:00)
[2016-11-22] MEDS ORDERED: COUGH DROP (SUGAR FREE) LOZ 24 LOZ/1 BOX ONE (10:50)
[2016-11-22] MEDS ORDERED: NURSING DECISION MEDICATION ORDER SCH (11:00)
[2016-11-22] MEDS ORDERED: COUGH DROP (SUGAR FREE) LOZ 24 LOZ/1 BOX PO PRN (11:30)
[2016-11-22] MEDS: CEFTRIAXONE SOD INJ 1 GM in DEXTROSE 5% ADD-VANTAGE 50ML 50 ML IV SCH (16:15)
--- NOTE | 2016-11-22 17:16 | Family Medicine Progress Note ---
Progress Note Date of Service Nov 22, 2016. Subjective Pt evaluation today including: conversation w/ patient, physical exam, chart review, lab review, review of studies, review of inpatient medication list Pain: denies pain PO Intake: adequate Voiding: no voiding problems Patient reports residual SOB though improved from arrival. He still has a productive cough, His reported Chest tightness worse with breathing is resolved. He denies LE swelling, calf tenderness, presyncope, syncope. Constitutional: No fever, No chills, No weakness Respiratory: + cough (productive), + shortness of breath, No sputum Cardiovascular: No chest pain, No edema, No claudication, No palpitations Abdomen: No pain, No nausea, No vomiting Musculoskeletal: No muscle pain, No swelling, No calf pain Male : No dysuria, No urinary frequency Endo: + fatigue Skin: No rash, No itch Medications Current Inpatient Medications Medications (Trade) Dose Ordered Sig/Meño Route Start Time Stop Time Status Last Admin Dose Admin Methylprednisolone Sodium Succinate 40 mg/Syringe 0.64 ml @ 1.5 mls/min Q12H IV 11/21/16 16:00 12/21/16 15:59 11/22/16 16:15 1.5 MLS/MIN Azithromycin (Zithromax Tab) 250 mg QAM PO 11/22/16 09:00 11/25/16 08:59 11/22/16 07:30 250 MG Acetaminophen (Tylenol Tab) 650 mg Q4H PRN PO 11/21/16 14:30 12/21/16 14:29 Al Hydrox/Mg Hydrox/Simethicone (Maalox Max Susp) 15 ml Q4H PRN PO 11/21/16 14:30 12/21/16 14:29 Magnesium Hydroxide (Milk Of Magnesia Susp) 30 ml Q12H PRN PO 11/21/16 14:30 12/21/16 14:29 Nitroglycerin (Nitrostat Tab) 0.4 mg UD PRN SL 11/21/16 14:30 12/21/16 14:29 Ceftriaxone Sodium 1 gm/ Dextrose 50 ml @ 100 mls/hr Q24H IV 11/21/16 16:00 11/28/16 15:59 11/22/16 16:15 100 MLS/HR Lactobacillus Acidophilus (Lactinex Granules Pack) 1 gm TIDM PO 11/21/16 17:00 12/21/16 17:59 11/22/16 16:15 1 GM Furosemide 20 mg/ Syringe 2 ml @ 4 mls/min Q12H IV 11/21/16 18:00 12/21/16 17:59 11/22/16 16:16 4 MLS/MIN Ipratropium [place] (Atrovent 0.02% 0.5MG/2.5ML Neb) 0.5 mg Q6R INH 11/21/16 21:00 12/21/16 20:59 11/22/16 14:49 0.5 MG Levalbuterol (Xopenex 1.25MG/ 0.5ML Neb) 1.25 mg Q6R INH 11/21/16 21:00 12/21/16 20:59 11/22/16 14:49 1.25 MG Menthol (Nice Delma) 1 delma PRN PRN PO 11/22/16 11:30 12/22/16 11:29 Objective Vital Signs Date Time Temp Pulse Resp B/P (MAP) Pulse Ox O2 Delivery O2 Flow Rate FiO2 11/22/16 16:00 91 Room Air 11/22/16 16:00 87 11/22/16 14:49 65 16 94 Room Air 11/22/16 14:45 36.7 65 18 151/85 (107) 97 Room Air 11/22/16 12:20 Room Air 11/22/16 11:42 36.7 88 18 142/85 (104) 91 Room Air 11/22/16 08:50 65 18 98 Nasal Cannula 4.0 11/22/16 08:00 93 Room Air 11/22/16 07:54 36.3 64 18 160/80 (106) 98 3.0 11/22/16 04:00 Nasal Cannula 4.0 11/22/16 03:53 36.3 74 18 125/75 (92) 94 Nasal Cannula 4.0 11/22/16 00:00 Nasal Cannula 4.0 11/21/16 23:40 36.4 65 19 148/82 (104) 97 Nasal Cannula 4.0 11/21/16 20:23 36.4 66 19 143/78 (99) 93 Nasal Cannula 3.0 11/21/16 20:00 Nasal Cannula 4.0 11/21/16 19:29 78 18 92 Nasal Cannula 4.0 Physical Exam General Appearance: WD/WN, no apparent distress Eyes: normal inspection, PERRL, EOMI Neck: supple, no carotid bruits, trachea midline Respiratory/Chest: lungs clear, normal breath sounds, no respiratory distress, + crackles Cardiovascular: regular rate, rhythm, no murmur Abdomen: normal bowel sounds, non tender, soft Neurologic/Psychiatric: alert, normal mood/affect Skin: warm/dry, no rash Laboratory Results Results Past 24 Hours Test 11/22/16 04:10 Range/Units White Blood Count 6.13 4.8-10.8 K/uL Red Blood Count 5.37 4.7-6.1 M/uL Hemoglobin 16.4 14.0-18.0 g/dL Hematocrit 50.5 42-52 % Mean Corpuscular Volume 94.0 80-100 fL Mean Corpuscular Hemoglobin 30.5 25-34 pg Mean Corpuscular Hemoglobin Concent 32.5 32-36 g/dl Platelet Count 160 130-400 K/uL Mean Platelet Volume 9.6 7.4-10.4 fL Neutrophils (%) (Auto) 80.5 % Lymphocytes (%) (Auto) 13.9 % Monocytes (%) (Auto) 4.9 % Eosinophils (%) (Auto) 0.0 % Basophils (%) (Auto) 0.2 % Neutrophils # (Auto) 4.94 1.4-6.5 K/uL Lymphocytes # (Auto) 0.85 1.2-3.4 K/uL Monocytes # (Auto) 0.30 0.11-0.59 K/uL Eosinophils # (Auto) 0.00 0-0.5 K/uL Basophils # (Auto) 0.01 0-0.2 K/uL RDW Standard Deviation 49.1 36.4-46.3 fL RDW Coefficient of Variation 14.4 11.5-14.5 % Immature Granulocyte % (Auto) 0.5 % Immature Granulocyte # (Auto) 0.03 0.00-0.02 K/uL Prothrombin Time 21.1 9.0-12.0 SECONDS Prothromb Time International Ratio 1.9 0.9-1.1 Sodium Level 143 136-145 mmol/L Potassium Level 4.5 3.5-5.1 mmol/L Chloride Level 104 98-107 mmol/L Carbon Dioxide Level 34 21-32 mmol/L Anion Gap 5.0 3-11 mmol/L Blood Urea Nitrogen 25 7-18 mg/dl Creatinine 0.97 0.60-1.40 mg/dl Est Creatinine Clear Calc Drug Dose 67.1 ml/min Estimated GFR () 82.2 Estimated GFR (Non- 70.9 BUN/Creatinine Ratio 25.7 10-20 Random Glucose 115 70-99 mg/dl Calcium Level 7.4 8.5-10.1 mg/dl Phosphorus Level 4.5 2.5-4.9 mg/dl Magnesium Level 2.0 1.8-2.4 mg/dl Total Bilirubin 0.7 0.2-1 mg/dl Aspartate Amino Transf (AST/SGOT) 89 15-37 U/L Alanine Aminotransferase (ALT/SGPT) 141 12-78 U/L Alkaline Phosphatase 157 45-117 U/L Total Creatine Kinase 72 39-308 U/L Creatine Kinase MB 2.1 0.5-3.6 ng/ml Creatine Kinase MB Ratio 2.9 0-3.0 Troponin I 0.042 0-0.045 ng/ml Total Protein 4.5 6.4-8.2 gm/dl Albumin 1.8 3.4-5.0 gm/dl Globulin 2.7 2.5-4.0 gm/dl Albumin/Globulin Ratio 0.7 0.9-2 Assessment and Plan 86 yo M not on home o2 with CHF, CAD s/p CABG, COPD, Afib/Aflutter, readmission discharged 11/20 after having been admitted for CHF exacerbation, presenting this encounter with increased SOB and Hypoxic resp Failure in setting of suspected CHF exacerbation on arrival requiring supplemental O2, currently stable on room air. Acute on chronic diastolic heart failure - clinically improved - c/w IV Lasix 20 mg BID - diuresing well, weened off oxygen Bronchitis - reports ongoing productive cough -c/w Ceftriaxone, Azithromycin -q6 nebs Mildly Elevated Troponin - trended down to normal levels - likely 2/2 demand ischemia COPD c/w Solumedrol 40 mg IV BID Hx Atrial Fibrillation/Flutter - c/w warfarin -INR 1.9 CAD s/p cath -Plavix, Valsartan, Coreg DVT prophylaxis: warfarin CODE status: Full Continued [facility] stay due to: abnormal vital signs Discharge planning: uncertain Resident Tracking Resident Involvement: Resident Care Provided Care Provided: Adult Hospital Medicine
--- NOTE | 2016-11-22 22:48 | Progress Note ---
Progress Note Date of Service Nov 22, 2016. Progress Note Resident Physician Supervision Note: I interviewed and examined the patient. Discussed with Dr. Martínez and agree with findings and plan as documented in the note. Any exceptions or clarifications are listed here: Upon my exam, the patient is resting supine, sleeping, without dyspnea. He complains of a cough, productive of a thick sputum. He remains afebrile. Suspect his dyspnea is combination of both CHF and obstructive lung disease. He is markedly improved this afternoon compared to yesterday, and I suspect this improvement is not based solely upon diuresis. Continue current treatment. Consider pulmonology consult tomorrow. Documented By: Timothy De Souza
[2016-11-23] VITALS (14 sets, daily range): BP systolic 126–149; BP diastolic 70–99; PULSE 61–74; TEMP 36.4–36.8; O2SAT 91–99
[2016-11-23] MEDS: LEVALBUTEROL 1.25MG/0.5ML NEB INH SCH ×4 (01:52→19:00)
[2016-11-23] MEDS: IPRATROPIUM BROMIDE NEB SOLN 0.02% 2.5 ML VIAL INH SCH ×4 (01:52→19:00)
[2016-11-23] MEDS: METHYLPREDNISOLONE IV 40 MG in SYRINGE 0 ML IV SCH ×2 (03:31→15:46)
[2016-11-23] MEDS: FUROSEMIDE INJ 20 MG in SYRINGE 0 ML IV SCH ×2 (06:05→17:39)
[2016-11-23 07:02] LABS: BASO % 0.1 %; BASO ABS # 0.01 K/uL (0-0.2); COMPLETE YES; HEMATOCRIT 47.8 % (42-52); IG% 0.3 %; LYMPH % 6.7 %; LYMPH ABS # 0.87 K/uL (1.2-3.4); MEAN CELL VOLUME 91.9 fL (80-100); MEAN CORPUSCULAR HEMOGLOBIN 31.7 pg (25-34); MEAN CORPUSCULAR HGB CONC 34.5 g/dl (32-36); MEAN PLATELET VOLUME 9.7 fL (7.4-10.4); MONO % 6.9 %; PLATELET COUNT 192 K/uL (130-400)
[2016-11-23 07:17] LABS: INR 1.9 (0.9-1.1); PROTHROMBIN TIME (PATIENT) 21.3 SECONDS (9.0-12.0)
[2016-11-23 07:40] LABS: BUN/CREATININE RATIO 34.4 (10-20); CALCIUM 7.9 mg/dl (8.5-10.1); CREATININE 0.75 mg/dl (0.60-1.40); POTASSIUM 4.3 mmol/L (3.5-5.1)
--- NOTE | 2016-11-23 08:23 | DIAGNOSTIC IMAGING REPORT ---
CHEST 2 VIEWS ROUTINE HISTORY: Short of breath. COMPARISON: Chest 11/21/2016. FINDINGS: Pulmonary edema and bibasilar hazy densities have improved. Small bilateral pleural effusions have improved. No pneumothorax. The heart is borderline enlarged. There is a cardiac valve prosthesis again noted. IMPRESSION: Improvement in the pulmonary edema and small bilateral pleural effusions. Electronically signed by: Sánchez Licea M.D. 11/23/2016 8:22 AM Dictated Date/Time: 11/23/2016 8:11 AM
[2016-11-23] MEDS: LACTOBACILLUS ACIDOPHILUS 1 GM PACK PO SCH ×3 (08:28→15:47)
[2016-11-23] MEDS: AZITHROMYCIN 250 MG TAB PO SCH (08:29)
--- NOTE | 2016-11-23 11:50 | Family Medicine Progress Note ---
Progress Note Date of Service Nov 23, 2016. Subjective Pt evaluation today including: conversation w/ patient, physical exam, chart review, lab review, review of studies, review of inpatient medication list Pain: denies Voiding: marc catheter in place No acute events. Patient still reports SOB. He is not at his baseline.. He reports some chest discomfort when attempting to use spirometry both on inspiration/expiration. Additional Comments: Constitutional: No fever, No chills, No weakness Respiratory: + cough (dry), + shortness of breath, No sputum Cardiovascular: No chest pain, No edema, No claudication, No palpitations Abdomen: No pain, No nausea, No vomiting Musculoskeletal: No muscle pain, No swelling, No calf pain Male : No dysuria, No urinary frequency Endo: + fatigue Skin: No rash, No itch Medications Current Inpatient Medications Medications (Trade) Dose Ordered Sig/Meño Route Start Time Stop Time Status Last Admin Dose Admin Methylprednisolone Sodium Succinate 40 mg/Syringe 0.64 ml @ 1.5 mls/min Q12H IV 11/21/16 16:00 12/21/16 15:59 11/23/16 03:31 1.5 MLS/MIN Azithromycin (Zithromax Tab) 250 mg QAM PO 11/22/16 09:00 11/25/16 08:59 11/23/16 08:29 250 MG Acetaminophen (Tylenol Tab) 650 mg Q4H PRN PO 11/21/16 14:30 12/21/16 14:29 Al Hydrox/Mg Hydrox/Simethicone (Maalox Max Susp) 15 ml Q4H PRN PO 11/21/16 14:30 12/21/16 14:29 Magnesium Hydroxide (Milk Of Magnesia Susp) 30 ml Q12H PRN PO 11/21/16 14:30 12/21/16 14:29 Nitroglycerin (Nitrostat Tab) 0.4 mg UD PRN SL 11/21/16 14:30 12/21/16 14:29 Ceftriaxone Sodium 1 gm/ Dextrose 50 ml @ 100 mls/hr Q24H IV 11/21/16 16:00 11/28/16 15:59 11/22/16 16:15 100 MLS/HR Lactobacillus Acidophilus (Lactinex Granules Pack) 1 gm TIDM PO 11/21/16 17:00 12/21/16 17:59 11/23/16 08:28 1 GM Furosemide 20 mg/ Syringe 2 ml @ 4 mls/min Q12H IV 11/21/16 18:00 12/21/16 17:59 11/23/16 06:05 4 MLS/MIN Ipratropium [place] (Atrovent 0.02% 0.5MG/2.5ML Neb) 0.5 mg Q6R INH 11/21/16 21:00 12/21/16 20:59 11/23/16 07:20 0.5 MG Levalbuterol (Xopenex 1.25MG/ 0.5ML Neb) 1.25 mg Q6R INH 11/21/16 21:00 12/21/16 20:59 11/23/16 07:19 1.25 MG Menthol (Nice Delma) 1 delma PRN PRN PO 11/22/16 11:30 12/22/16 11:29 Objective Vital Signs Date Time Temp Pulse Resp B/P (MAP) Pulse Ox O2 Delivery O2 Flow Rate FiO2 11/23/16 11:45 36.8 67 20 130/80 (97) 95 Room Air 11/23/16 11:39 36.6 67 18 126/81 (96) 99 Room Air 11/23/16 11:07 92 Room Air 11/23/16 07:21 61 16 92 Room Air 11/23/16 07:18 92 Room Air 11/23/16 07:10 36.5 66 18 149/99 (116) 92 Room Air 11/23/16 04:00 36.6 67 14 143/81 (101) 93 11/22/16 23:59 Room Air 11/22/16 23:41 36.3 76 16 148/88 (108) 93 11/22/16 20:00 Room Air 11/22/16 19:59 36.8 85 18 159/90 (113) 95 Room Air 11/22/16 19:34 84 16 94 Room Air 11/22/16 16:00 91 Room Air 11/22/16 16:00 87 11/22/16 14:49 65 16 94 Room Air 11/22/16 14:45 36.7 65 18 151/85 (107) 97 Room Air Physical Exam General Appearance: WD/WN, no apparent distress Eyes: normal inspection, PERRL Neck: supple, no carotid bruits, trachea midline Respiratory/Chest: chest non-tender, no respiratory distress, no accessory muscle use, + crackles (Gaston crackles , lung bases) Cardiovascular: regular rate, rhythm, no edema, no murmur Abdomen: normal bowel sounds, non tender, soft Extremities: no pedal edema, no calf tenderness Neurologic/Psychiatric: alert, normal mood/affect, oriented x 3 Skin: warm/dry, no rash Laboratory Results Results Past 24 Hours Test 11/23/16 06:11 Range/Units White Blood Count 12.90 4.8-10.8 K/uL Red Blood Count 5.20 4.7-6.1 M/uL Hemoglobin 16.5 14.0-18.0 g/dL Hematocrit 47.8 42-52 % Mean Corpuscular Volume 91.9 80-100 fL Mean Corpuscular Hemoglobin 31.7 25-34 pg Mean Corpuscular Hemoglobin Concent 34.5 32-36 g/dl Platelet Count 192 130-400 K/uL Mean Platelet Volume 9.7 7.4-10.4 fL Neutrophils (%) (Auto) 86.0 % Lymphocytes (%) (Auto) 6.7 % Monocytes (%) (Auto) 6.9 % Eosinophils (%) (Auto) 0.0 % Basophils (%) (Auto) 0.1 % Neutrophils # (Auto) 11.09 1.4-6.5 K/uL Lymphocytes # (Auto) 0.87 1.2-3.4 K/uL Monocytes # (Auto) 0.89 0.11-0.59 K/uL Eosinophils # (Auto) 0.00 0-0.5 K/uL Basophils # (Auto) 0.01 0-0.2 K/uL RDW Standard Deviation 47.1 36.4-46.3 fL RDW Coefficient of Variation 14.0 11.5-14.5 % Immature Granulocyte % (Auto) 0.3 % Immature Granulocyte # (Auto) 0.04 0.00-0.02 K/uL Prothrombin Time 21.3 9.0-12.0 SECONDS Prothromb Time International Ratio 1.9 0.9-1.1 Sodium Level 143 136-145 mmol/L Potassium Level 4.3 3.5-5.1 mmol/L Chloride Level 105 98-107 mmol/L Carbon Dioxide Level 30 21-32 mmol/L Anion Gap 8.0 3-11 mmol/L Blood Urea Nitrogen 26 7-18 mg/dl Creatinine 0.75 0.60-1.40 mg/dl Est Creatinine Clear Calc Drug Dose 84.5 ml/min Estimated GFR () 96.9 Estimated GFR (Non- 83.6 BUN/Creatinine Ratio 34.4 10-20 Random Glucose 117 70-99 mg/dl Calcium Level 7.9 8.5-10.1 mg/dl Assessment and Plan 86 yo M not on home o2 with CHF, CAD s/p CABG, COPD, Afib/Aflutter, readmission discharged 11/20 after having been admitted for CHF exacerbation, presenting this encounter with increased SOB and Hypoxic resp. Failure in setting of combination of COPD and CHF exacerbation on arrival requiring supplemental O2, currently stable on room air. Acute on chronic diastolic heart failure -crackles on exam, no wheezing, clinically improved - c/w IV Lasix 20 mg BID - diuresing well, weened off oxygen Leukocytosis -likely Bronchitis - reports ongoing productive cough -c/w Ceftriaxone, Azithromycin -q6 nebs sharee koo Mildly Elevated Troponin - trended down to normal levels - likely 2/2 demand ischemia Suspected COPD c/w Solumedrol 40 mg IV BID Pulmonology consulted F/u report HTN Home dose of Coreg, Valsartan Hx Atrial Fibrillation/Flutter - c/w warfarin -INR 1.9 -Follow INR's CAD s/p cath -Plavix, Valsartan, Coreg, Statin DVT prophylaxis: warfarin CODE status: Full ADDENDUM - Around 11:30, patient had 11 beats of Vtach during coughing episode in addition to 4 beats overnight -Cardiology consulted -NO intervention was recommended at this time, Resident Physician Supervision Note: I was present with Dr. Martínez during the history and exam. I discussed the case with the resident and agree with the findings and plan as documented in the note. Any exceptions or clarifications are listed here: 86-year-old male admitted with acute respiratory failure secondary to combination of acute systolic congestive heart failure and exacerbation of chronic obstructive pulmonary disease. The patient actually had fairly prompt resolution of the congestive changes seen on x-ray and both clinically. Yesterday, it is noted, that the patient was able to lie and sleep supine without any increased respiratory difficulties. Upon exam yesterday, he had both diffuse wheezing in all khan along with crackles in the bases laterally, left worse than right. Upon examination today, the wheezes are nearly completely resolved. There is some faint crackles at the left base still auscultated. Input from pulmonology is appreciated. Cardiology also saw the patient today after the patient had an 11 beat run of ventricular tachycardia; in reviewing the telemetry strips is also noted he had a shorter run of the same around 3 AM this morning. The suspicion is the dysrhythmia was secondary to the IV steroids , the beta agonist, and the holding of the beta ivy upon admission. IMPRESSION 1) acute systolic congestive heart failure, resolving 2) COPD, acute exacerbation 3) weakness with generalized decondition secondary hospitalization 4) no obvious infiltrate or significant pulmonary infection PLAN 1) DC intravenous steroids and start prednisone 40 mg by mouth every morning 2) Restart Coreg 12.5 mg by mouth twice a day 3) Discontinue Rocephin; continue Zithromax completed a 5 day course 4) discontinue intravenous Lasix; start Lasix 60 mg by mouth every morning. 5) chest x-ray in the a.m. 6) EKG in the a.m. 7) BMP in the a.m. 8) PT and OT consultations have been placed. 9) Will I suspect the patient will be in the hospital through the weekend, we' ll begin discussions regarding potential inpatient rehabilitation - I feel he would benefit from inpatient rehabilitation where he could undergo at least 3 hours of physical therapy per day as well as have physician oversight to manage his medications in light of the recent changes. Documented By: Timothy De Souza Continued [facility] stay due to: abnormal vital signs Discharge planning: uncertain Resident Tracking Resident Involvement: Resident Care Provided Care Provided: Adult Hospital Medicine
[2016-11-23] MEDS: BENZONATATE 100MG CAP PO PRN (12:30)
[2016-11-23] MEDS ORDERED: NITROGLYCERIN 0.4 MG SL PER TAB CHARGE UT PRN (14:15)
[2016-11-23] MEDS: CEFTRIAXONE SOD INJ 1 GM in DEXTROSE 5% ADD-VANTAGE 50ML 50 ML IV SCH (15:46)
[2016-11-23] MEDS: IPRATROPIUM BROMIDE/ALBUTEROL respimat INH INH SCH ×2 (15:46→21:59)
[2016-11-23] MEDS: WARFARIN SOD 5 MG TAB PO SCH (15:47)
--- NOTE | 2016-11-23 17:15 | PROGRESS NOTE ---
DATE: 11/23/2016 TIME: 1400. REASON FOR CONSULTATION: COPD/CHF. HISTORY OF PRESENT ILLNESS: An 86-year-old pleasant white male who was admitted to the hospitalist service from the ER after having been originally seen by Dr. Karson Sweeney. The patient noticed progressive symptoms of dyspnea over the past 12 hours prior to admission. The patient had been hospitalized for several days prior and discharged within 24 hours of that admit. The patient is seen by Dr. Tristen Gore, discharge door operator in the past with a history of 3-vessel bypass, mitral valve repair in 1999 at time of bypass surgery and a history of chronic diastolic heart failure. The daughter was in attendance during my interview. The patient had been accumulating significant amounts of fluid with marked pedal edema over the past several weeks. He claims to be much improved since his current admission, he has been on Plavix therapy, the edema has markedly improved. He does watch his salt intake and weighs himself regularly at home. He does live by himself with his daughter frequently visiting him and lives only 6 minutes away by car. He states his phlegm currently is mildly yellow, no hemoptysis and denies pleuritic pain. Does state that he felt a heaviness in his chest after using his Tri-Flow and tolerates his nebulizer treatments without any problems. He did have a run of nonsustained V-tach in the ER and was admitted, treated for CHF as well as COPD exacerbation. He has responded nicely to aerosolized bronchodilator in the form of DuoNeb solution. He is not on home oxygen at this point in time. Chest x-ray today shows marked improvement in the pulmonary edema pattern of admission with only small bilateral pleural effusions visible. I have been asked to see patient in consultation. Low ultrasound performed in April showed essentially minimal atherosclerotic disease in his legs. Blood cultures to date during this admission were negative, in the past he has had a Staph aureus infection involving his chest wound after his bypass and mitral valve replacement that took several weeks to months to heal. White count today was 12,900. He is currently on Coumadin therapy and oral azithromycin as well as q.12 hour IV Lasix. His steroid dose is q.12 hours as well and he has been administered IV ceftriaxone. For details of past medical history, medications, family and social history I refer you to current and past record. PHYSICAL EXAMINATION: GENERAL: Reveals a well developed elderly white male in no obvious distress at rest. VITAL SIGNS: Temperature 36.8, pulse 67 and regular, respiratory rate 16, blood pressure 130/80, O2 sat 94% on room air. SKIN: Warm and dry. HEENT: Atraumatic, normocephalic, PERRLA. EOMI. Conjunctivae pale. Sclerae nonicteric. Fundi poorly visualized. NECK: Neck veins are not distended at 45 degrees. No obvious adenopathy in the supra or infraclavicular areas. LUNGS: Relatively clear to P&A with some fine crackles at the bases. CARDIAC EXAM: Regular rate and rhythm. I do not appreciate a gallop. ABDOMEN: Soft, scaphoid. No evidence of hepatosplenomegaly. EXTREMITIES: Trace pedal edema. No clubbing or peripheral cyanosis. NEUROLOGIC: Intact. No lateralizing signs. DATA: Chest x-ray and laboratory data reviewed. Overall, the patient's AST and ALT are significantly elevated at 127/173 respectively. Serum albumin was depressed at 1.9. OVERALL ASSESSMENT: An 86-year-old status post triple bypass surgery with mitral valve repair and postoperative Staph aureus infection, admitted twice within the past several weeks with what appears to be acute on chronic diastolic heart failure. There may be an exacerbation of his chronic obstructive pulmonary disease as well that kept him from clinically improving after most recent hospital stay and discharged on November 20. The x-ray clearly shows evidence of congestive heart failure on admission and that is clinically much improved. His current weight is down 1.1 kilograms since November 18, down almost 2 kilograms since previous admission. I would convert patient over to oral Lasix as well as oral steroid therapy with continued taper, will give an additional 3-5 days of Zithromax before discharge and we will be happy to follow patient as an outpatient. A 2-step examination to see if patient qualifies for oxygen would be helpful as well.
--- NOTE | 2016-11-23 17:57 | CARDIOLOGY PROGRESS NOTE ---
DATE: 11/23/2016 HISTORY OF PRESENT ILLNESS: Mr. Mckinney is a very pleasant 86-year-old white male with a history of longstanding CAD status post CABG x 3 vessels remotely (MCGRATH to LAD, SVG to RI, SVG to RCA), mitral valve repair in 1999, severe concentric LVH with chronic diastolic CHF, chronic atrial flutter (rate controlled and on anticoagulation), hypertension, hyperlipidemia, BPH and a remote history of peptic ulcer disease who was hospitalized from 11/16/2016 through 11/20/2016 with an acute on chronic exacerbation of diastolic CHF. The patient was discharged to home on 11/20/2016, but returned to the hospital in acute respiratory distress approximately 12 hours later on 11/21/2016 with respiratory distress, hypoxemia, and diffuse wheezing. He was subsequently admitted with a COPD exacerbation and possibly some exacerbation of his underlying Diastolic CHF. After returning to home from his last hospitalization, he sat down in his recliner chair across from his air conditioning unit. He turned on the air conditioner before he sat down, and the longer he sat in the chair the more short of wind he became. Since being admitted, the patient has been treated with azithromycin, IV ceftriaxone, IV Solu-Medrol 40 mg q.12 hours, IV Lasix and nebulizers. Unfortunately, patient did not receive any of his usual carvedilol since being admitted. This morning at approximately 0300, he had a 6-beat run of a wide-complex tachycardia, and this occurred again at approximately 11:27 a.m. today. He had an 11 beat run of a wide-complex tachycardia, slightly irregular. Either V-tach versus atrial fib with RVR and aberrant conduction. This was most likely exacerbated by his acute illness, the stimulating effects of IV steroids and beta agonist action of his nebulizer treatments, and beta-ivy withdrawal. The patient did not have any symptoms with these brief runs of wide-complex tachycardia. The patient states that his respiratory status has improved dramatically since yesterday. The patient has a negative fluid balance of approximately 4.5 liters since being admitted. The patient offers no other complaints. He denies any chest pain, heaviness, tightness, or pressure. No neck, jaw, back, or arm pain. No angina pectoris. Breathing is gradually improving. He denies any orthopnea or PND. No palpitations, syncope, or near syncope. PHYSICAL EXAMINATION: VITAL SIGNS: Temperature is 36.4 degrees Celsius, pulse is 68 and regular, respiratory rate is 16 and unlabored, blood pressure is 132/74, SPO2 is 91% on room air. GENERAL: The patient is in no acute distress. HEENT: Head is atraumatic, normocephalic. EOMs intact. Sclerae are anicteric. Face asymmetric. No perioral cyanosis. Mucous membranes are moist. NECK: Without thyromegaly, adenopathy or JVD. The patient is lying comfortably flat in bed without obvious jugular venous distention. CHEST AND LUNGS: With basilar crackles, otherwise clear. No wheezes. CARDIOVASCULAR: S1 and S2 are regular without obvious murmur, gallop or rub. PMI is not displaced. No lifts, heaves, or thrills. ABDOMINAL EXAM: Bowel sounds present. EXTREMITIES: With trace pedal edema bilaterally. NEUROLOGIC: The patient is awake, alert and oriented. Pleasant and cooperative. Answers questions appropriately. Speech is clear. He has normal movement of bilateral upper and lower extremities. Telemetry monitoring at 11:27 a.m. today shows an 11 beat run of nonsustained VT versus AFib with RVR and aberrant conduction. LABORATORY DATA: White blood cell count is 12.9. Hemoglobin is 16.5 g/dL, hematocrit 47.8%, platelet count 192,000. Chemistry 143 mmol/L, potassium 4.3 mmol/L. BUN is 26 mg/dL, creatinine 0.75 mg/dL. INR is 1.9. ASSESSMENT: 1. Two brief runs of nonsustained V-tach versus atrial fibrillation with rapid ventricular response and aberrant conduction. This was most likely exacerbated by the hyperadrenergic state associated with acute illness, the beta antagonistic action of nebulizers, anticholinergic action of nebulizers, stimulating effects of corticosteroids, and beta-ivy withdrawal. 2. Coronary artery disease, status post coronary artery bypass graft x3 vessels in 1999. 3. History of mitral valve repair. 4. Severe concentric left ventricular hypertrophy with diastolic dysfunction. 5. Chronic diastolic heart failure, appears to be euvolemic at the present time. 6. Atrial flutter, rate controlled and on Coumadin. PLAN: 1. Discussed and Dr. De Souza with Dr. Hernandez. 2. At this point, we discussed the potential triggers for his abnormal rhythm. They are as described above. 3. At this point, would recommend restarting Coreg 25 mg b.i.d. along with his other usual home medications. 4. Continue Coumadin for goal INR of 2.0 to 3.0. 5. Continue treatment of underlying COPD exacerbation. 6. Continue treating underlying infectious process. 7. There is no need for further cardiac workup in this situation. However, if his dysrhythmia recurs after being back on his usual medications we may need to make further medication adjustments. MTDD
[2016-11-23] MEDS ORDERED: CARVEDILOL 25 MG TAB PO SCH (21:00)
[2016-11-23] MEDS ORDERED: CARVEDILOL 6.25 MG TAB PO SCH (21:00)
[2016-11-23] MEDS: CARVEDILOL 25 MG TAB PO SCH (21:59)
[2016-11-24] VITALS (8 sets, daily range): BP systolic 91–149; BP diastolic 49–94; PULSE 64–69; TEMP 36.3–36.6; O2SAT 91–94
[2016-11-24] MEDS: LEVALBUTEROL 1.25MG/0.5ML NEB INH SCH ×4 (01:48→19:20)
[2016-11-24] MEDS: IPRATROPIUM BROMIDE NEB SOLN 0.02% 2.5 ML VIAL INH SCH ×4 (01:48→19:20)
[2016-11-24 05:43] LABS: BASO % 0.1 %; BASO ABS # 0.01 K/uL (0-0.2); COMPLETE YES; HEMATOCRIT 45.7 % (42-52); IG% 0.4 %; LYMPH % 6.6 %; LYMPH ABS # 0.81 K/uL (1.2-3.4); MEAN CORPUSCULAR HEMOGLOBIN 31.7 pg (25-34); MEAN CORPUSCULAR HGB CONC 34.8 g/dl (32-36); MEAN PLATELET VOLUME 9.7 fL (7.4-10.4); MONO % 10.4 %; NEUT % 82.5 %; PLATELET COUNT 184 K/uL (130-400); RED BLOOD COUNT 5.02 M/uL (4.7-6.1); WHITE BLOOD COUNT 12.27 K/uL (4.8-10.8)
[2016-11-24 06:11] LABS: BUN/CREATININE RATIO 39.3 (10-20); CREATININE 0.6 mg/dl (0.60-1.40)
[2016-11-24 06:18] LABS: CALCIUM 8.1 mg/dl (8.5-10.1)
[2016-11-24] MEDS: BENZONATATE 100MG CAP PO PRN (07:16)
--- NOTE | 2016-11-24 08:12 | Family Medicine Progress Note ---
Progress Note Date of Service Nov 24, 2016. Subjective Pt evaluation today including: conversation w/ patient The patient was seen and examined at bedside. No acute overnight events. Telemetry monitoring did not show any evidence of Vtach overnight. Patient is resting comfortably in bed. Reports his LE swelling as improved. Eating and urinating well. Rehab was discussed with patient and he was agreeable to it. Plan of care was described to the patient and all questions were answered. Constitutional: No fever, No chills, No sweats Respiratory: + cough, + sputum (yellow phlegm) Cardiovascular: No chest pain Skin: No rash Objective Physical Exam General Appearance: WD/WN Neck: no JVD Respiratory/Chest: chest non-tender, no respiratory distress, no accessory muscle use, + pertinent finding (bilateral crackles in the lower lobes) Cardiovascular: no edema, no gallop, no JVD, no murmur, + irregularly irregular Abdomen: non tender, soft Extremities: normal range of motion, non-tender, normal inspection, no pedal edema, no calf tenderness Neurologic/Psychiatric: alert, normal mood/affect, oriented x 3 Assessment and Plan 86M with CHF, CAD s/p CABG, COPD (not on home oxygen), Afib/Aflutter, readmission discharged 11/20 after having been admitted for CHF exacerbation, presenting this encounter with increased SOB and Hypoxic resp. Failure in setting of combination of COPD and CHF exacerbation on arrival requiring supplemental O2, currently stable on room air. Acute on chronic diastolic heart failure -crackles on exam, no wheezing, clinically improved - c/w PO Lasix 60mg QAM - diuresing well, weened off oxygen Acute COPD exacerbation Prednisone 30mg AM tomorrow - Per pulm Dr. Alicia's note, taper by 10mg daily. -c/w Azithromycin Day #3 / 5, also received Ceftriaxone. - c/w q6 nebs and tessalon pearls - Would likely benefit from outpatient PFTs. Elevated Troponin (resolved) - trended down to normal levels - likely 2/2 demand ischemia CAD w stent history - c/w Coreg 25mg BID - c/w Plavix 75mg daily - c/w Valsartan 80mg daily - c/w Atorvastatin 40mg daily. Vtach Run on night of 11/22/2016. - likely due to IV steroids, beta agonist, and holding BB on admission. - continue to monitor on tele. Hx Atrial Fibrillation/Flutter - c/w warfarin 2.5mg daily -INR 1.9, continue to follow and adjust. HTN - coreg, valsartan as above. Dispo: Tele, PT & OT, likely will need placement on discharge. Pt prefers [facility] if possible. DVT Proph: On Coumadin CODE: Full Resident Physician Supervision Note: I was present with Dr. Perea during the history and exam. I discussed the case with the resident and agree with the findings and plan as documented in the note. Any exceptions or clarifications are listed here: Overall, he feels much better. He is pleased with his breathing and the fact that his lower extremity edema has nearly completely resolved. Upon examination, the wheezing heard on admission has completely resolved; he still has some crackles in the left base, but the right base is clear. The patient is willing to go for some rehabilitation; he prefers [facility] since a daughter lives near this facility. Given his quick readmission, and his medication titration here in the hospital, he would benefit from both physical therapy and the physician oversight available for further adjustments as needed. Documented By: Timothy De Souza Resident Involvement: Resident Care Provided Care Provided: Adult Hospital Medicine
[2016-11-24] MEDS: ATORVASTATIN 40 MG TAB PO SCH (08:18)
[2016-11-24] MEDS: CARVEDILOL 25 MG TAB PO SCH ×2 (08:18→20:27)
[2016-11-24] MEDS: CLOPIDOGREL BISULFATE 75 MG TAB PO SCH (08:18)
[2016-11-24] MEDS: AZITHROMYCIN 250 MG TAB PO SCH (08:18)
[2016-11-24] MEDS: VALSARTAN 80 MG TAB PO SCH (08:18)
[2016-11-24] MEDS: LACTOBACILLUS ACIDOPHILUS 1 GM PACK PO SCH ×2 (08:18→12:44)
[2016-11-24] MEDS: PANTOprazole SOD 40 MG TAB PO SCH (08:18)
[2016-11-24] MEDS: POTASSIUM CHLORIDE 20 MEQ TABCR PO SCH (08:19)
[2016-11-24] MEDS: IPRATROPIUM BROMIDE/ALBUTEROL respimat INH INH SCH ×4 (08:19→20:27)
[2016-11-24] MEDS: FUROSEMIDE 20 MG TAB PO SCH (08:19)
--- NOTE | 2016-11-24 10:41 | DIAGNOSTIC IMAGING REPORT ---
TWO VIEW CHEST CLINICAL HISTORY: CHF. FINDINGS: PA and lateral chest radiographs are compared to study dated 11/23/2016. The heart is enlarged and there is atherosclerotic calcification of the thoracic aorta. There is evidence of previous mitral valve surgery. Enlargement of the pulmonary trunk is similar to previous. The pulmonary vasculature is noncongested. There are trace pleural effusions and bibasilar atelectasis. Chronic interstitial thickening is unchanged. There is no pneumothorax. The skeletal structures are osteopenic. Degenerative change is noted throughout the thoracic spine and in the shoulders. IMPRESSION: 1. Cardiomegaly without radiographic evidence of congestive failure. 2. Trace pleural effusions and bibasilar atelectasis Electronically signed by: Niranjan Bennett M.D. 11/24/2016 10:40 AM Dictated Date/Time: 11/24/2016 10:39 AM
--- NOTE | 2016-11-24 16:34 | Pulmonology Progress Note ---
Pulmonary Progress Note Date of Service Nov 24, 2016. Attending Dr. Young Subjective An 86-year-old status post triple bypass surgery with mitral valve repair and postoperative Staph aureus infection, admitted twice within the past several weeks with what appears to be acute on chronic diastolic heart failure. An AECOPD could not be totally ruled out but he has been having recurrent admissions and the last DC was on 11/20/16. He was admitted this time with weight gain acute on chronic respiratory failure and a CXR picture of pulmonary edema. He responded very nicely to diuresis. His CXR shows significant clearing and he reports significant improvement. He says he still coughs up occaisonally some yellowish sputum. Zithromax and prednisone were added yesterday by Dr Foreman. no CP no other complaints at this point Objective GENERAL: no obvious distress at rest. VITAL SIGNS: Afebrile RR 18 SpO2 93% RA, BP 90s/60s HR 68 HEENT: Atraumatic, normocephalic, PERRLA. EOMI. Conjunctivae pale. Sclerae nonicteric. NECK: no JVD no LN LUNGS: Relatively clear to P&A with some fine crackles at the bases. CARDIAC EXAM: Regular rate and rhythm. I do not appreciate a gallop. ABDOMEN: Soft, scaphoid. No evidence of hepatosplenomegaly. EXTREMITIES: Trace pedal edema. No clubbing or peripheral cyanosis. Assessment & Plan An 86-year-old status post triple bypass surgery with mitral valve repair and postoperative Staph aureus infection, admitted twice within the past several weeks with what appears to be acute on chronic diastolic heart failure. An AECOPD could not be totally ruled out but he has been having recurrent admissions and the last DC was on 11/20/16 So recommend to continue lasix taper prednisone by 10 mg daily continue zithromax for a total of 5 days continue nebulized duoneb (he uses combivent as well) would benefit from a PFT as outpatient to ascertain the degree of obstruction He may need laba/ICS as well repeat a BNP 2 step eval prior to DC rehab on DC he prefers [facility]. 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 FU inr defer non respiratory management to the primary team. Data Medications: Current Inpatient Medications Medications (Trade) Dose Ordered Sig/Meño Route Start Time Stop Time Status Last Admin Dose Admin Azithromycin (Zithromax Tab) 250 mg QAM PO 11/22/16 09:00 11/25/16 09:01 11/24/16 08:18 250 MG Acetaminophen (Tylenol Tab) 650 mg Q4H PRN PO 11/21/16 14:30 12/21/16 14:29 Al Hydrox/Mg Hydrox/Simethicone (Maalox Max Susp) 15 ml Q4H PRN PO 11/21/16 14:30 12/21/16 14:29 Magnesium Hydroxide (Milk Of Magnesia Susp) 30 ml Q12H PRN PO 11/21/16 14:30 12/21/16 14:29 Ipratropium [place] (Atrovent 0.02% 0.5MG/2.5ML Neb) 0.5 mg Q6R INH 11/21/16 21:00 12/21/16 20:59 11/23/16 19:00 0.5 MG Levalbuterol (Xopenex 1.25MG/ 0.5ML Neb) 1.25 mg Q6R INH 11/21/16 21:00 12/21/16 20:59 11/23/16 19:00 1.25 MG Menthol (Nice Delma) 1 delma PRN PRN PO 11/22/16 11:30 12/22/16 11:29 Benzonatate (Tessalon Perles Cap) 100 mg TID PRN PO 11/23/16 12:00 12/23/16 11:59 11/24/16 07:16 100 MG Atorvastatin Calcium (Lipitor Tab) 40 mg DAILY PO 11/24/16 09:00 12/24/16 08:59 11/24/16 08:18 40 MG Clopidogrel Bisulfate (plAVix TAB) 75 mg DAILY PO 11/24/16 09:00 12/24/16 08:59 11/24/16 08:18 75 MG Albuterol/ Ipratropium (Combivent Respimat Inh) 1 puffs QID INH 11/23/16 17:00 12/23/16 16:59 11/24/16 12:44 1 PUFFS Nitroglycerin (Nitrostat Tab) 0.4 mg UD PRN UT 11/23/16 14:15 12/23/16 14:14 Potassium Chloride (Klor-Con Tab) 20 meq QAM PO 11/24/16 09:00 12/24/16 08:59 11/24/16 08:19 20 MEQ Valsartan (Diovan Tab) 80 mg DAILY PO 11/24/16 09:00 12/24/16 08:59 11/24/16 08:18 80 MG Pantoprazole Sodium (Protonix Tab) 40 mg DAILY PO 11/24/16 09:00 12/24/16 08:59 11/24/16 08:18 40 MG Warfarin Sodium (Coumadin Tab) 5 mg DAILY@16 PO 11/23/16 16:00 12/23/16 15:59 11/23/16 15:47 5 MG Carvedilol (Coreg Tab) 25 mg BID PO 11/23/16 21:00 12/23/16 20:59 11/24/16 08:18 25 MG Prednisone (PredniSONE TAB) 40 mg QAM PO 11/24/16 09:00 11/29/16 08:59 11/24/16 08:19 40 MG Furosemide (Lasix Tab) 60 mg QAM PO 11/24/16 09:00 12/24/16 08:59 11/24/16 08:19 60 MG Lactobacillus Acidophilus (Floranex Tab) 1 tab TIDM PO 11/24/16 17:00 12/24/16 16:59 I & O: 24-Hour Column 11/25/16 08:00 Intake Total 480 ml Output Total 225 ml Balance 255 ml Vital Signs: Date Time Temp Pulse Resp B/P (MAP) Pulse Ox O2 Delivery O2 Flow Rate FiO2 11/24/16 15:14 36.4 68 18 99/62 (74) 93 Room Air 11/24/16 11:30 92 Room Air 11/24/16 11:27 36.3 69 20 94/49 (64) 92 Room Air 91/51 (64) 11/24/16 07:53 36.3 67 18 149/94 (112) 91 Room Air 11/24/16 07:30 91 Room Air 11/24/16 04:00 Room Air 11/24/16 04:00 36.6 64 20 148/81 (103) 94 Room Air 11/24/16 00:00 Room Air 11/23/16 23:44 36.5 67 20 131/70 (90) 91 Room Air 11/23/16 20:00 92 Room Air 11/23/16 19:36 36.4 74 18 136/70 (92) 92 Room Air 11/23/16 19:00 67 16 93 Room Air Laboratory Results: Last 24 Hours Test 11/24/16 05:22 White Blood Count 12.27 K/uL Red Blood Count 5.02 M/uL Hemoglobin 15.9 g/dL Hematocrit 45.7 % Mean Corpuscular Volume 91.0 fL Mean Corpuscular Hemoglobin 31.7 pg Mean Corpuscular Hemoglobin Concent 34.8 g/dl Platelet Count 184 K/uL Mean Platelet Volume 9.7 fL Neutrophils (%) (Auto) 82.5 % Lymphocytes (%) (Auto) 6.6 % Monocytes (%) (Auto) 10.4 % Eosinophils (%) (Auto) 0.0 % Basophils (%) (Auto) 0.1 % Neutrophils # (Auto) 10.12 K/uL Lymphocytes # (Auto) 0.81 K/uL Monocytes # (Auto) 1.28 K/uL Eosinophils # (Auto) 0.00 K/uL Basophils # (Auto) 0.01 K/uL RDW Standard Deviation 46.6 fL RDW Coefficient of Variation 13.9 % Immature Granulocyte % (Auto) 0.4 % Immature Granulocyte # (Auto) 0.05 K/uL Sodium Level 144 mmol/L Potassium Level 4.0 mmol/L Chloride Level 106 mmol/L Carbon Dioxide Level 33 mmol/L Anion Gap 5.0 mmol/L Blood Urea Nitrogen 24 mg/dl Creatinine 0.60 mg/dl Est Creatinine Clear Calc Drug Dose 105.6 ml/min Estimated GFR () 106.3 Estimated GFR (Non- 91.7 BUN/Creatinine Ratio 39.3 Random Glucose 114 mg/dl Calcium Level 8.1 mg/dl
[2016-11-24] MEDS: WARFARIN SOD 5 MG TAB PO SCH (16:41)
[2016-11-24] MEDS: LACTOBACILLUS ACIDOPHILUS (FLORANEX) TAB PO SCH (17:05)
[2016-11-25] VITALS (12 sets, daily range): BP systolic 97–143; BP diastolic 58–86; PULSE 51–65; TEMP 36.3–36.5; O2SAT 93–95
[2016-11-25] MEDS: LEVALBUTEROL 1.25MG/0.5ML NEB INH SCH ×4 (01:42→19:20)
[2016-11-25] MEDS: IPRATROPIUM BROMIDE NEB SOLN 0.02% 2.5 ML VIAL INH SCH ×4 (01:42→19:20)
[2016-11-25 06:04] LABS: HEMATOCRIT 46.3 % (42-52); MEAN CELL VOLUME 91.5 fL (80-100); MEAN CORPUSCULAR HEMOGLOBIN 31.4 pg (25-34); MEAN CORPUSCULAR HGB CONC 34.3 g/dl (32-36); MEAN PLATELET VOLUME 9.4 fL (7.4-10.4); PLATELET COUNT 181 K/uL (130-400); RED BLOOD COUNT 5.06 M/uL (4.7-6.1); WHITE BLOOD COUNT 10.08 K/uL (4.8-10.8)
[2016-11-25 06:19] LABS: INR 3.1 (0.9-1.1); PROTHROMBIN TIME (PATIENT) 35.3 SECONDS (9.0-12.0)
[2016-11-25 06:36] LABS: BUN/CREATININE RATIO 40.1 (10-20); CREATININE 0.61 mg/dl (0.60-1.40); POTASSIUM 4.1 mmol/L (3.5-5.1)
[2016-11-25 07:23] LABS: CALCIUM 7.7 mg/dl (8.5-10.1)
[2016-11-25] MEDS: CARVEDILOL 25 MG TAB PO SCH (08:01)
[2016-11-25] MEDS: LACTOBACILLUS ACIDOPHILUS (FLORANEX) TAB PO SCH ×3 (08:01→16:31)
[2016-11-25] MEDS: BENZONATATE 100MG CAP PO PRN (08:01)
[2016-11-25] MEDS: POTASSIUM CHLORIDE 20 MEQ TABCR PO SCH (08:01)
[2016-11-25] MEDS: PANTOprazole SOD 40 MG TAB PO SCH (08:01)
--- NOTE | 2016-11-25 08:01 | Family Medicine Progress Note ---
Progress Note Date of Service Nov 25, 2016. Subjective Pt evaluation today including: conversation w/ patient The patient was seen and examined at bedside. Telemetry showed a 6 beat episode of VTACH - nurse believes this was correlated to occur during pt's coughing episodes. Pt states he is feeling better. Agreeable to rehab at [facility]. Denies any systemic complaints. Denies having any pain. Eating and urinating well. Plan of care was described to the patient and all questions were answered. Constitutional: No fever, No chills, No sweats, No weight loss Respiratory: No cough, No sputum, No wheezing, No shortness of breath Cardiovascular: No chest pain, No edema Abdomen: No pain, No nausea, No vomiting, No diarrhea Male : No dysuria Objective Physical Exam General Appearance: WD/WN, no apparent distress Respiratory/Chest: chest non-tender, lungs clear, normal breath sounds, no respiratory distress, + pertinent finding (posterior crackles have almost resolved) Cardiovascular: no edema, no gallop, no JVD, no murmur, + irregularly irregular Abdomen: normal bowel sounds, non tender, soft, no organomegaly, no pulsatile mass Extremities: normal range of motion, no pedal edema, no calf tenderness Neurologic/Psychiatric: alert, normal mood/affect, oriented x 3 Skin: no rash, + pertinent finding (rough skin over anterior shins) Assessment and Plan 86M with CHF, CAD s/p CABG, COPD (not on home oxygen), Afib/Aflutter, readmission discharged 11/20 after having been admitted for CHF exacerbation, presenting this encounter with increased SOB and Hypoxic resp. Failure in setting of combination of COPD and CHF exacerbation on arrival requiring supplemental O2, currently stable on room air. Patient is receiving a steroid taper and we are awaiting placement to [facility]. Acute on chronic diastolic heart failure - Lungs CTA, no wheezing, clinically improved - c/w PO Lasix 60mg QAM - diuresing well, weened off oxygen Acute COPD exacerbation Prednisone 20mg AM Saturday, 10mg - Per pulm Dr. Alicia's note, taper by 10mg daily. -c/w Azithromycin Day #4 / 5, also received Ceftriaxone. - c/w q6 nebs and tessalon pearls - Would likely benefit from outpatient PFTs. - Two step test ordered for tomorrow. Elevated Troponin (resolved) - trended down to normal levels - likely 2/2 demand ischemia CAD w stent history - c/w Coreg 25mg BID - c/w Plavix 75mg daily - c/w Valsartan 80mg daily - c/w Atorvastatin 40mg daily. Vtach Run on night of 11/22/2016. - likely due to IV steroids, beta agonist, and holding BB on admission. - continue to monitor on tele. Hx Atrial Fibrillation/Flutter - c/w warfarin 2.5mg daily -INR 3.1, continue to follow and adjust. HTN - coreg, valsartan as above. Dispo: Tele, PT & OT, awaiting approval for [facility]. DVT Proph: On Coumadin CODE: Full Resident Physician Supervision Note: I was present with the resident physician during the history and exam. I discussed the case with the resident and agree with the findings and plan as documented in the note. Any exceptions or clarifications are listed here: Upon exam, the patient's previous to her wheezing upon admission is absent. Slight crackles left base, otherwise lung exam is unremarkable. Trace pedal edema, much improved compared to admission. Review of his blood work is rather unremarkable. His INR today is 3.1; will make tonight's dose 2.5 mg - after which we can probably begin his home regimen. Disposition is hopefully to [facility] for physical therapy and further adjustment of his medications. Documented By: Timothy De Souza Resident Involvement: Resident Care Provided Care Provided: Adult Hospital Medicine
[2016-11-25] MEDS: VALSARTAN 80 MG TAB PO SCH (08:02)
[2016-11-25] MEDS: FUROSEMIDE 20 MG TAB PO SCH (08:02)
[2016-11-25] MEDS: ATORVASTATIN 40 MG TAB PO SCH (08:02)
[2016-11-25] MEDS: CLOPIDOGREL BISULFATE 75 MG TAB PO SCH (08:02)
[2016-11-25] MEDS: IPRATROPIUM BROMIDE/ALBUTEROL respimat INH INH SCH ×4 (08:18→21:14)
[2016-11-25] MEDS: AZITHROMYCIN 250 MG TAB PO SCH (08:18)
--- NOTE | 2016-11-25 14:55 | Pulmonology Progress Note ---
Pulmonary Progress Note Date of Service Nov 25, 2016. Attending Dr. Young Subjective An 86-year-old status post triple bypass surgery with mitral valve repair and postoperative Staph aureus infection, admitted twice within the past several weeks with what appears to be acute on chronic diastolic heart failure. An AECOPD could not be totally ruled out but he has been having recurrent admissions and the last DC was on 11/20/16. He was admitted this time with weight gain acute on chronic respiratory failure and a CXR picture of pulmonary edema. He responded very nicely to diuresis. His CXR shows significant clearing and he reports significant improvement. He says he still coughs up occasionally some yellowish sputum. Zithromax and prednisone were added by Dr Foreman. His BNP decreased to 925 from 1600. no CP no other complaints at this point He prefers to go to [facility] rehab. Objective GENERAL: no obvious distress at rest. VITAL SIGNS: Afebrile RR 18 SpO2 93% RA, BP 90s/60s HR 68 HEENT: Atraumatic, normocephalic, PERRLA. EOMI. Conjunctivae pale. Sclerae nonicteric. NECK: no JVD no LN LUNGS: Relatively clear to P&A with some fine crackles at the bases. CARDIAC EXAM: Regular rate and rhythm. I do not appreciate a gallop. ABDOMEN: Soft, scaphoid. No evidence of hepatosplenomegaly. EXTREMITIES: Trace pedal edema. No clubbing or peripheral cyanosis. Assessment & Plan An 86-year-old status post triple bypass surgery with mitral valve repair and postoperative Staph aureus infection, admitted twice within the past several weeks with what appears to be acute on chronic diastolic heart failure. An AECOPD could not be totally ruled out but he has been having recurrent admissions and the last DC was on 11/20/16 So recommend to continue lasix taper prednisone by 10 mg daily continue zithromax for a total of 5 days continue nebulized duoneb would benefit from a PFT as outpatient to ascertain the degree of obstruction He may need laba/ICS as well 2 step eval ordered for tomorrow He may go to home if he does not need O2. However, it seems he needs help with his meds and restricting fluids as he has had multiple recurrent admissions. 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 defer non respiratory management to the primary team. Data Medications: Current Inpatient Medications Medications (Trade) Dose Ordered Sig/Meño Route Start Time Stop Time Status Last Admin Dose Admin Acetaminophen (Tylenol Tab) 650 mg Q4H PRN PO 11/21/16 14:30 12/21/16 14:29 Al Hydrox/Mg Hydrox/Simethicone (Maalox Max Susp) 15 ml Q4H PRN PO 11/21/16 14:30 12/21/16 14:29 Magnesium Hydroxide (Milk Of Magnesia Susp) 30 ml Q12H PRN PO 11/21/16 14:30 12/21/16 14:29 Ipratropium [place] (Atrovent 0.02% 0.5MG/2.5ML Neb) 0.5 mg Q6R INH 11/21/16 21:00 12/21/16 20:59 11/23/16 19:00 0.5 MG Levalbuterol (Xopenex 1.25MG/ 0.5ML Neb) 1.25 mg Q6R INH 11/21/16 21:00 12/21/16 20:59 11/23/16 19:00 1.25 MG Menthol (Nice Delma) 1 delma PRN PRN PO 11/22/16 11:30 12/22/16 11:29 Benzonatate (Tessalon Perles Cap) 100 mg TID PRN PO 11/23/16 12:00 12/23/16 11:59 11/25/16 08:01 100 MG Atorvastatin Calcium (Lipitor Tab) 40 mg DAILY PO 11/24/16 09:00 12/24/16 08:59 11/25/16 08:02 40 MG Clopidogrel Bisulfate (plAVix TAB) 75 mg DAILY PO 11/24/16 09:00 12/24/16 08:59 11/25/16 08:02 75 MG Albuterol/ Ipratropium (Combivent Respimat Inh) 1 puffs QID INH 11/23/16 17:00 12/23/16 16:59 11/25/16 12:31 1 PUFFS Nitroglycerin (Nitrostat Tab) 0.4 mg UD PRN UT 11/23/16 14:15 12/23/16 14:14 Potassium Chloride (Klor-Con Tab) 20 meq QAM PO 11/24/16 09:00 12/24/16 08:59 11/25/16 08:01 20 MEQ Valsartan (Diovan Tab) 80 mg DAILY PO 11/24/16 09:00 12/24/16 08:59 11/25/16 08:02 80 MG Pantoprazole Sodium (Protonix Tab) 40 mg DAILY PO 11/24/16 09:00 12/24/16 08:59 11/25/16 08:01 40 MG Warfarin Sodium (Coumadin Tab) 5 mg DAILY@16 PO 11/23/16 16:00 12/23/16 15:59 11/24/16 16:41 5 MG Furosemide (Lasix Tab) 60 mg QAM PO 11/24/16 09:00 12/24/16 08:59 11/25/16 08:02 60 MG Lactobacillus Acidophilus (Floranex Tab) 1 tab TIDM PO 11/24/16 17:00 12/24/16 16:59 11/25/16 12:13 1 TAB Prednisone (PredniSONE TAB) 30 mg Taper DAILY PO 11/25/16 09:00 11/28/16 08:59 11/25/16 08:19 30 MG Carvedilol (Coreg Tab) 12.5 mg BID PO 11/25/16 21:00 12/23/16 20:59 I & O: 24-Hour Column 11/26/16 08:00 Intake Total 310 ml Output Total 650 ml Balance -340 ml Vital Signs: Date Time Temp Pulse Resp B/P (MAP) Pulse Ox O2 Delivery O2 Flow Rate FiO2 11/25/16 12:02 95 Room Air 11/25/16 11:17 36.4 51 18 97/58 (71) 95 Room Air 11/25/16 08:00 94 Room Air 11/25/16 07:30 36.4 63 18 136/86 (103) 94 Room Air 11/25/16 04:05 36.5 54 20 143/78 (99) 93 Room Air 11/25/16 04:00 93 Room Air 11/25/16 00:04 36.4 55 20 118/72 (87) 94 Room Air 11/25/16 00:00 93 Room Air 11/24/16 19:54 36.3 67 20 116/73 (87) 94 Room Air 6/24/17 16:00 93 Room Air 11/24/16 15:14 36.4 68 18 99/62 (74) 93 Room Air Laboratory Results: Last 24 Hours Test 11/25/16 05:37 White Blood Count 10.08 K/uL Red Blood Count 5.06 M/uL Hemoglobin 15.9 g/dL Hematocrit 46.3 % Mean Corpuscular Volume 91.5 fL Mean Corpuscular Hemoglobin 31.4 pg Mean Corpuscular Hemoglobin Concent 34.3 g/dl RDW Standard Deviation 46.6 fL RDW Coefficient of Variation 14.0 % Platelet Count 181 K/uL Mean Platelet Volume 9.4 fL Prothrombin Time 35.3 SECONDS Prothromb Time International Ratio 3.1 Sodium Level 145 mmol/L Potassium Level 4.1 mmol/L Chloride Level 107 mmol/L Carbon Dioxide Level 32 mmol/L Anion Gap 6.0 mmol/L Blood Urea Nitrogen 24 mg/dl Creatinine 0.61 mg/dl Est Creatinine Clear Calc Drug Dose 94.3 ml/min Estimated GFR () 105.5 Estimated GFR (Non- 91.1 BUN/Creatinine Ratio 40.1 Random Glucose 93 mg/dl Calcium Level 7.7 mg/dl Pro-B-Type Natriuretic Peptide 925 pg/ml
[2016-11-25] MEDS ORDERED: WARFARIN SOD 2.5 MG TAB PO ONE (17:00)
[2016-11-25] MEDS: CARVEDILOL 12.5 MG TAB PO SCH (21:15)
[2016-11-26] VITALS (11 sets, daily range): BP systolic 111–181; BP diastolic 66–84; PULSE 49–88; TEMP 36.4–36.5; O2SAT 92–96
[2016-11-26] MEDS: IPRATROPIUM BROMIDE NEB SOLN 0.02% 2.5 ML VIAL INH SCH ×4 (02:01→20:11)
[2016-11-26] MEDS: LEVALBUTEROL 1.25MG/0.5ML NEB INH SCH ×4 (02:01→20:11)
[2016-11-26 06:04] LABS: MEAN CELL VOLUME 91.8 fL (80-100); MEAN CORPUSCULAR HEMOGLOBIN 31.1 pg (25-34); MEAN CORPUSCULAR HGB CONC 33.9 g/dl (32-36); MEAN PLATELET VOLUME 9.3 fL (7.4-10.4); PLATELET COUNT 181 K/uL (130-400); RED BLOOD COUNT 5.34 M/uL (4.7-6.1)
[2016-11-26 06:20] LABS: PROTHROMBIN TIME (PATIENT) 42.7 SECONDS (9.0-12.0)
[2016-11-26 06:23] LABS: INR 3.8 (0.9-1.1)
[2016-11-26 06:28] LABS: BUN/CREATININE RATIO 33.1 (10-20); CALCIUM 7.8 mg/dl (8.5-10.1); CREATININE 0.72 mg/dl (0.60-1.40); POTASSIUM 4.2 mmol/L (3.5-5.1)
[2016-11-26] MEDS: ATORVASTATIN 40 MG TAB PO SCH (07:56)
[2016-11-26] MEDS: LACTOBACILLUS ACIDOPHILUS (FLORANEX) TAB PO SCH ×3 (07:56→16:30)
[2016-11-26] MEDS: VALSARTAN 80 MG TAB PO SCH (07:56)
[2016-11-26] MEDS: CLOPIDOGREL BISULFATE 75 MG TAB PO SCH (07:56)
[2016-11-26] MEDS: FUROSEMIDE 20 MG TAB PO SCH (07:57)
[2016-11-26] MEDS: POTASSIUM CHLORIDE 20 MEQ TABCR PO SCH (07:57)
[2016-11-26] MEDS: PANTOprazole SOD 40 MG TAB PO SCH (07:57)
[2016-11-26] MEDS: CARVEDILOL 12.5 MG TAB PO SCH ×2 (07:58→20:35)
[2016-11-26] MEDS: IPRATROPIUM BROMIDE/ALBUTEROL respimat INH INH SCH ×4 (07:58→20:34)
--- NOTE | 2016-11-26 09:54 | Pulmonology Progress Note ---
Pulmonary Progress Note Date of Service Nov 26, 2016. Attending Dr. Mclaughlin Subjective Reports overall improvement from admission. Was able to ambulate the hallway with little difficulty x 1 then with second round noted increased dyspnea. Reports cough this AM productive of yellow sputum. No hemoptysis. No chest pain. Slept poorly over the night secondary to noise. Appetite in-tact. Objective 86-yo male re-admitted to [facility] 11/21/16 with exacerbation of heart failure and bronchitis. 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 Former tobacco: quit 1988. 86-yo male admitted through the ER 11/21/16 1-day post discharge with progressive dyspnea and productive cough. CXR suggestive of progressive congestive failure. He was treated concurrently for exacerbation of diastolic HF and exacerbation of COPD with diuresis, steroid, bronchodilators and antibiotic (azithromycin + ceftriaxone) with improvement CXR 11/24/16: cardiomegaly without evidence of failure. Trace pleural effusion. chronic interstitial thickening. Today: - 92-94%: RA - Afebrile, Hypertensive, bradycardia - Wt: 90.2kg - 20mg prednisone - WBC/Hgb/Hct/Plts: 9.7/16.6/49/181 - INR: 3.8 - Sputum: heavy normal bud - BC: NGTD Physical Exam: - WD think male sitting in chair at bedside consuming lunch - no acute distress - HEENT: + symmetry. NO conjunctival injection. Moist mucous membranes - CV: Regular rate. No murmur appreciated. Well healed mid-line scare with sternal asymmetry and click with inspiration - Respiratory: non-labored respirations. No cough. No wheeze or rhonchi - GI: soft, active bowel sounds - MSK/Extremities: moving and developed symmetrically. Loose skin LEs consistent with volume loss - Neurologic: Alert, oriented. Answering questions and following commands appropriately Assessment & Plan 86-yo male admitted with exacerbation of diastolic HF and bronchitis: - S/P completion of course azithromycin - increased cough production today may be mobilization of sputum with increased mobility - repeat CXR - 2-step prior to discharge - Combivent QID and recommend levalbuterol available with nebulizer post discharge and follow-up with pulmonary within 1-2 weeks to arrange for PFTs Patient and case reviewed and I agree with the plan. Data Medications: Current Inpatient Medications Medications (Trade) Dose Ordered Sig/Meño Route Start Time Stop Time Status Last Admin Dose Admin Acetaminophen (Tylenol Tab) 650 mg Q4H PRN PO 11/21/16 14:30 12/21/16 14:29 Al Hydrox/Mg Hydrox/Simethicone (Maalox Max Susp) 15 ml Q4H PRN PO 11/21/16 14:30 12/21/16 14:29 Magnesium Hydroxide (Milk Of Magnesia Susp) 30 ml Q12H PRN PO 11/21/16 14:30 12/21/16 14:29 Ipratropium [place] (Atrovent 0.02% 0.5MG/2.5ML Neb) 0.5 mg Q6R INH 11/21/16 21:00 12/21/16 20:59 11/23/16 19:00 0.5 MG Levalbuterol (Xopenex 1.25MG/ 0.5ML Neb) 1.25 mg Q6R INH 11/21/16 21:00 12/21/16 20:59 11/23/16 19:00 1.25 MG Menthol (Nice Delma) 1 delma PRN PRN PO 11/22/16 11:30 12/22/16 11:29 Benzonatate (Tessalon Perles Cap) 100 mg TID PRN PO 11/23/16 12:00 12/23/16 11:59 11/25/16 08:01 100 MG Atorvastatin Calcium (Lipitor Tab) 40 mg DAILY PO 11/24/16 09:00 12/24/16 08:59 11/26/16 07:56 40 MG Clopidogrel Bisulfate (plAVix TAB) 75 mg DAILY PO 11/24/16 09:00 12/24/16 08:59 11/26/16 07:56 75 MG Albuterol/ Ipratropium (Combivent Respimat Inh) 1 puffs QID INH 11/23/16 17:00 12/23/16 16:59 11/26/16 07:58 1 PUFFS Nitroglycerin (Nitrostat Tab) 0.4 mg UD PRN UT 11/23/16 14:15 12/23/16 14:14 Potassium Chloride (Klor-Con Tab) 20 meq QAM PO 11/24/16 09:00 12/24/16 08:59 11/26/16 07:57 20 MEQ Valsartan (Diovan Tab) 80 mg DAILY PO 11/24/16 09:00 12/24/16 08:59 11/26/16 07:56 80 MG Pantoprazole Sodium (Protonix Tab) 40 mg DAILY PO 11/24/16 09:00 12/24/16 08:59 11/26/16 07:57 40 MG Furosemide (Lasix Tab) 60 mg QAM PO 11/24/16 09:00 12/24/16 08:59 11/26/16 07:57 60 MG Lactobacillus Acidophilus (Floranex Tab) 1 tab TIDM PO 11/24/16 17:00 12/24/16 16:59 11/26/16 07:56 1 TAB Prednisone (PredniSONE TAB) 20 mg Taper DAILY PO 11/25/16 09:00 11/28/16 08:59 11/26/16 07:56 20 MG Carvedilol (Coreg Tab) 12.5 mg BID PO 11/25/16 21:00 12/23/16 20:59 11/25/16 21:15 12.5 MG Warfarin Sodium (Coumadin Tab) 4 mg DAILY@16 PO 11/26/16 16:00 12/26/16 15:59 Vital Signs: Date Time Temp Pulse Resp B/P (MAP) Pulse Ox O2 Delivery O2 Flow Rate FiO2 11/26/16 08:00 Room Air 11/26/16 07:46 36.4 49 16 158/79 (105) 92 Room Air 11/26/16 04:00 36.5 62 20 145/84 (104) 92 Room Air 11/26/16 04:00 93 Room Air 11/26/16 00:16 36.4 55 20 129/68 (88) 92 Room Air 11/26/16 00:00 93 Room Air 11/25/16 20:00 95 Room Air 11/25/16 19:57 36.5 65 20 134/76 (95) 94 Room Air 11/25/16 16:00 95 Room Air 11/25/16 14:45 36.3 63 18 109/69 (82) 95 Room Air 11/25/16 12:02 95 Room Air 11/25/16 11:17 36.4 51 18 97/58 (71) 95 Room Air Laboratory Results: Last 24 Hours Test 11/26/16 05:33 White Blood Count 9.70 K/uL Red Blood Count 5.34 M/uL Hemoglobin 16.6 g/dL Hematocrit 49.0 % Mean Corpuscular Volume 91.8 fL Mean Corpuscular Hemoglobin 31.1 pg Mean Corpuscular Hemoglobin Concent 33.9 g/dl RDW Standard Deviation 47.1 fL RDW Coefficient of Variation 14.0 % Platelet Count 181 K/uL Mean Platelet Volume 9.3 fL Prothrombin Time 42.7 SECONDS Prothromb Time International Ratio 3.8 Sodium Level 143 mmol/L Potassium Level 4.2 mmol/L Chloride Level 107 mmol/L Carbon Dioxide Level 31 mmol/L Anion Gap 5.0 mmol/L Blood Urea Nitrogen 24 mg/dl Creatinine 0.72 mg/dl Est Creatinine Clear Calc Drug Dose 79.9 ml/min Estimated GFR () 98.6 Estimated GFR (Non- 85.1 BUN/Creatinine Ratio 33.1 Random Glucose 78 mg/dl Calcium Level 7.8 mg/dl
[2016-11-26] MEDS ORDERED: PRD10 PO (12:09)
--- NOTE | 2016-11-26 13:34 | Discharge Instructions ---
Discharge Instructions Date of Service Nov 27, 2016. Admission Reason for Admission: Acute Respiratory Failure Discharge Discharge Diagnosis / Problem: COPD exacerbation, acute on chronic diastolic heart failure Discharge Goals Goal(s): Decrease discomfort, Increase independence, Improve disease control Activity Recommendations Activity Limitations: resume your previous activity . Instructions / Follow-Up Instructions / Follow-Up Patient presented to the hospital complaining of increased SOB and hypoxic respiratory failure, in the setting of COPD and CHF. Patient was started on steroid and completed antibiotics course. He was also started on 60mg Lasix and diuresis well. Acute on chronic diastolic heart failure - Continue with home dose of Lasix 40mg Acute COPD exacerbation - Completed course of steroid, continue the neb - Follow up with pulmonology in 1-2 wks for PFTs CAD w stent history - c/w Coreg 12.5mg BID - c/w Plavix 75mg daily - c/w Valsartan 80mg daily - c/w Atorvastatin 40mg daily. Hx Atrial Fibrillation/Flutter - Holding Coumadin given supra therapeutic INR (3.8) - Check INR and Coumadin can be started/adjusted accordingly. Current Hospital Diet Patient's current hospital diet: AHA Diet (Heart Healthy), Low Sodium Diet (2gm Na) Discharge Diet Recommended Diet: Regular Diet Pending Studies Studies pending at discharge: no Laboratory Results Lipid Panel Test 11/18/16 04:30 Range/Units Triglycerides Level 51 0-150 mg/dl Cholesterol Level 83 0-200 mg/dl HDL Cholesterol 29 mg/dl Cholesterol/HDL Ratio 2.9 LDL Cholesterol, Calculated 44 mg/dl Medical Emergencies . Who to Call and When: Medical Emergencies: If at any time you feel your situation is an emergency, please call 911 immediately. . Non-Emergent Contact Non-Emergency issues call your: Primary Care Provider . . "Provider Documentation" section prepared by Luis Hodges. . VTE Core Measure Inpt VTE Proph given/why not?: Wili (Coumadin), Scott Faustin, SCD's
[2016-11-26] MEDS ORDERED: WARFARIN SOD 4 MG TAB PO SCH (16:00)
--- NOTE | 2016-11-26 18:33 | Family Medicine Progress Note ---
Progress Note Date of Service Nov 26, 2016. Subjective Pt evaluation today including: conversation w/ patient, physical exam, chart review, lab review Pain: Denies Voiding: no voiding problems Patient was seen at the bedside. He complains of productive cough but denies SOB. Currently on room air and maintaining O2 sat. Tolerating PO intake well. Patient will be d/c to [facility] tomorrow for rehab. Constitutional: No fever Respiratory: + cough, + sputum, No wheezing, No shortness of breath, No dyspnea on exertion, No dyspnea at rest, No hemoptysis Cardiovascular: No chest pain Abdomen: No pain, No nausea, No vomiting Musculoskeletal: No swelling, No calf pain Skin: No rash Medications Current Inpatient Medications Medications (Trade) Dose Ordered Sig/Meño Route Start Time Stop Time Status Last Admin Dose Admin Acetaminophen (Tylenol Tab) 650 mg Q4H PRN PO 11/21/16 14:30 12/21/16 14:29 Al Hydrox/Mg Hydrox/Simethicone (Maalox Max Susp) 15 ml Q4H PRN PO 11/21/16 14:30 12/21/16 14:29 Magnesium Hydroxide (Milk Of Magnesia Susp) 30 ml Q12H PRN PO 11/21/16 14:30 12/21/16 14:29 Ipratropium Agra (Atrovent 0.02% 0.5MG/2.5ML Neb) 0.5 mg Q6R INH 11/21/16 21:00 12/21/16 20:59 11/26/16 14:13 0.5 MG Levalbuterol (Xopenex 1.25MG/ 0.5ML Neb) 1.25 mg Q6R INH 11/21/16 21:00 12/21/16 20:59 11/26/16 14:13 1.25 MG Menthol (Nice Delma) 1 delma PRN PRN PO 11/22/16 11:30 12/22/16 11:29 Benzonatate (Tessalon Perles Cap) 100 mg TID PRN PO 11/23/16 12:00 12/23/16 11:59 11/25/16 08:01 100 MG Atorvastatin Calcium (Lipitor Tab) 40 mg DAILY PO 11/24/16 09:00 12/24/16 08:59 11/26/16 07:56 40 MG Clopidogrel Bisulfate (plAVix TAB) 75 mg DAILY PO 11/24/16 09:00 12/24/16 08:59 11/26/16 07:56 75 MG Albuterol/ Ipratropium (Combivent Respimat Inh) 1 puffs QID INH 11/23/16 17:00 12/23/16 16:59 11/26/16 16:30 1 PUFFS Nitroglycerin (Nitrostat Tab) 0.4 mg UD PRN UT 11/23/16 14:15 12/23/16 14:14 Potassium Chloride (Klor-Con Tab) 20 meq QAM PO 11/24/16 09:00 12/24/16 08:59 11/26/16 07:57 20 MEQ Valsartan (Diovan Tab) 80 mg DAILY PO 11/24/16 09:00 12/24/16 08:59 11/26/16 07:56 80 MG Pantoprazole Sodium (Protonix Tab) 40 mg DAILY PO 11/24/16 09:00 12/24/16 08:59 11/26/16 07:57 40 MG Furosemide (Lasix Tab) 60 mg QAM PO 11/24/16 09:00 12/24/16 08:59 11/26/16 07:57 60 MG Lactobacillus Acidophilus (Floranex Tab) 1 tab TIDM PO 11/24/16 17:00 12/24/16 16:59 11/26/16 16:30 1 TAB Prednisone (PredniSONE TAB) 20 mg Taper DAILY PO 11/25/16 09:00 11/28/16 08:59 11/26/16 07:56 20 MG Carvedilol (Coreg Tab) 12.5 mg BID PO 11/25/16 21:00 12/23/16 20:59 11/25/16 21:15 12.5 MG Warfarin Sodium (Coumadin Tab) 4 mg DAILY@16 PO 11/26/16 16:00 12/26/16 15:59 Objective Vital Signs Date Time Temp Pulse Resp B/P (MAP) Pulse Ox O2 Delivery O2 Flow Rate FiO2 11/26/16 16:15 36.5 64 19 123/70 (87) 93 Room Air 11/26/16 16:00 96 Room Air 11/26/16 14:35 88 12 96 Room Air 11/26/16 12:06 36.5 71 16 95 Room Air 11/26/16 12:01 Room Air 11/26/16 11:48 36.5 71 16 111/66 (81) 95 Room Air 11/26/16 08:00 Room Air 11/26/16 07:46 36.4 49 16 158/79 (105) 92 Room Air 11/26/16 04:00 36.5 62 20 145/84 (104) 92 Room Air 11/26/16 04:00 93 Room Air 11/26/16 00:16 36.4 55 20 129/68 (88) 92 Room Air 11/26/16 00:00 93 Room Air 11/25/16 20:00 95 Room Air 11/25/16 19:57 36.5 65 20 134/76 (95) 94 Room Air Physical Exam General Appearance: WD/WN, no apparent distress Neck: supple, trachea midline Respiratory/Chest: chest non-tender, lungs clear, normal breath sounds, no respiratory distress, no accessory muscle use Cardiovascular: no edema, + irregularly irregular Abdomen: normal bowel sounds, non tender, soft Extremities: non-tender, no pedal edema, no calf tenderness Neurologic/Psychiatric: alert, normal mood/affect Skin: normal color, warm/dry, no rash Laboratory Results Results Past 24 Hours Test 11/26/16 05:33 Range/Units White Blood Count 9.70 4.8-10.8 K/uL Red Blood Count 5.34 4.7-6.1 M/uL Hemoglobin 16.6 14.0-18.0 g/dL Hematocrit 49.0 42-52 % Mean Corpuscular Volume 91.8 80-100 fL Mean Corpuscular Hemoglobin 31.1 25-34 pg Mean Corpuscular Hemoglobin Concent 33.9 32-36 g/dl RDW Standard Deviation 47.1 36.4-46.3 fL RDW Coefficient of Variation 14.0 11.5-14.5 % Platelet Count 181 130-400 K/uL Mean Platelet Volume 9.3 7.4-10.4 fL Prothrombin Time 42.7 9.0-12.0 SECONDS Prothromb Time International Ratio 3.8 0.9-1.1 Sodium Level 143 136-145 mmol/L Potassium Level 4.2 3.5-5.1 mmol/L Chloride Level 107 98-107 mmol/L Carbon Dioxide Level 31 21-32 mmol/L Anion Gap 5.0 3-11 mmol/L Blood Urea Nitrogen 24 7-18 mg/dl Creatinine 0.72 0.60-1.40 mg/dl Est Creatinine Clear Calc Drug Dose 79.9 ml/min Estimated GFR () 98.6 Estimated GFR (Non- 85.1 BUN/Creatinine Ratio 33.1 10-20 Random Glucose 78 70-99 mg/dl Calcium Level 7.8 8.5-10.1 mg/dl Assessment and Plan This is a 86y/o M with PMHx of CHF, CAD s/p CABG, COPD (not on home oxygen), Afib/Aflutter presented with increase SOB and hypoxic respiratory failure in setting of combination of COPD and CHF exacerbation, requiring supplemental O2. Patient was recently discharged on 11/20 after having admitted for CHF exacerbation. Patient is currently stable on room air. Patient is receiving a steroid taper and tomorrow will be the last dose. Will discharge to [facility] tomorrow am. * Acute on chronic diastolic heart failure - Lungs CTA, no wheezing, clinically improved - c/w PO Lasix 60mg QAM - diuresing well, weened off oxygen * Acute COPD exacerbation - Patient was started on IV steroid and switched to PO steroid taper by 10mg. Tomorrow would be the last dose. - Completed course of Azithromycin, also received Ceftriaxone. - c/w q6 nebs and tessalon pearls - Per Pulm on d/c continue Combivent QID and levalbuterol with neb. F/u with pulmonary within 1-2 wks for PFTs - Step 2 is not required given patient will be discharge to [facility]. * Elevated Troponin (resolved) - trended down to normal levels - likely 2/2 demand ischemia * CAD w stent history - c/w Coreg 25mg BID - c/w Plavix 75mg daily - c/w Valsartan 80mg daily - c/w Atorvastatin 40mg daily. * Vtach Run on night of 11/22/2016 - No acute event overnight on tele - likely due to IV steroids, beta agonist, and holding BB on admission. - continue to monitor on tele. * Hx Atrial Fibrillation/Flutter - Hold Coumadin given supra therapeutic INR - F/u on INR and adjust accordingly. * HTN - c/w coreg 12.5mg, valsartan 90mg * Dispo - D/c to [facility] tomorrow am for rehab * DVT Proph - Hold Coumadin given high INR * Status CODE - Full Reviewed: Pt Seen/Exam by Me History doing well today Constitutional: denies: fever Respiratory: negative: short of breath Cardiovascular: denies chest pain General Appearance: no apparent distress (sitting in chair) Respiratory: lungs clear, no respiratory distress Cardiovascular: regular rate, rhythm Gastrointestinal: soft Neurologic/Psychiatric: alert, oriented x 3 Skin Characteristics: warm/dry Assessment/Plan I have reviewed the medical record and performed a history and physical examination of this patient today. I have discussed the case with Dr. Hodges. The above note reflects my findings, conclusions, and recommendations.
[2016-11-27] MEDS: IPRATROPIUM BROMIDE NEB SOLN 0.02% 2.5 ML VIAL INH SCH ×2 (02:14→07:11)
[2016-11-27] MEDS: LEVALBUTEROL 1.25MG/0.5ML NEB INH SCH ×2 (02:14→07:11)
[2016-11-27 03:43] VITALS: BP 156/74; PULSE 55; TEMP 36.6; O2SAT 97
[2016-11-27 07:02] VITALS: BP 162/83; PULSE 53; TEMP 36.5; O2SAT 95
[2016-11-27 07:27] LABS: HEMATOCRIT 50.8 % (42-52); MEAN CELL VOLUME 92.4 fL (80-100); MEAN CORPUSCULAR HEMOGLOBIN 31.3 pg (25-34); MEAN CORPUSCULAR HGB CONC 33.9 g/dl (32-36); MEAN PLATELET VOLUME 9.5 fL (7.4-10.4); PLATELET COUNT 195 K/uL (130-400); WHITE BLOOD COUNT 11.29 K/uL (4.8-10.8)
[2016-11-27 07:34] LABS: INR 3.2 (0.9-1.1); PARTIAL THROMBOPLASTIN RATIO 1.4; PROTHROMBIN TIME (PATIENT) 35.4 SECONDS (9.0-12.0)
[2016-11-27 07:58] LABS: BUN/CREATININE RATIO 26.7 (10-20); CREATININE 0.8 mg/dl (0.60-1.40); POTASSIUM 4.2 mmol/L (3.5-5.1)
[2016-11-27] MEDS: CLOPIDOGREL BISULFATE 75 MG TAB PO SCH (08:06)
[2016-11-27] MEDS: CARVEDILOL 12.5 MG TAB PO SCH (08:06)
[2016-11-27] MEDS: VALSARTAN 80 MG TAB PO SCH (08:07)
[2016-11-27] MEDS: ATORVASTATIN 40 MG TAB PO SCH (08:07)
[2016-11-27] MEDS: LACTOBACILLUS ACIDOPHILUS (FLORANEX) TAB PO SCH (08:07)
[2016-11-27] MEDS: PANTOprazole SOD 40 MG TAB PO SCH (08:07)
[2016-11-27] MEDS: FUROSEMIDE 20 MG TAB PO SCH (08:07)
[2016-11-27] MEDS: IPRATROPIUM BROMIDE/ALBUTEROL respimat INH INH SCH (08:08)
[2016-11-27] MEDS: POTASSIUM CHLORIDE 20 MEQ TABCR PO SCH (08:08)
--- NOTE | 2016-11-27 09:05 | DIAGNOSTIC IMAGING REPORT ---
CHEST 2 VIEWS ROUTINE HISTORY: cough COMPARISON: Chest 11/24/2016. FINDINGS: The heart remains borderline enlarged. A mitral valve ring is noted. Small left and trace right pleural effusions persist. Left basilar linear densities remain unchanged. Stable volume loss within the left hemithorax. The right lung is essentially clear. IMPRESSION: 1. Small left and trace right pleural effusions persist with left basilar linear densities. This favors subsegmental atelectasis. 2. Borderline enlargement of cardiac silhouette, unchanged. Electronically signed by: Sánchez Licea M.D. 11/27/2016 9:03 AM Dictated Date/Time: 11/27/2016 9:01 AM
[2016-11-27] MEDS ORDERED: CRG125 PO (09:46)
[2016-11-27 10:00] VITALS: BP 102/66
[2016-11-27 12:59] LABS: CALCIUM 7.9 mg/dl (8.5-10.1)
--- NOTE | 2016-11-27 22:45 | Discharge Summary ---
Discharge Summary Date of Service Nov 27, 2016. (Luis Hodges MD) Discharge Summary Admission Date: Nov 21, 2016 at 14:34 Discharge Date: Nov 27, 2016 Discharge Disposition: Rehab Principal Diagnosis: COPD exacerbation Problems/Secondary Diagnoses: (1) CHF (congestive heart failure) Status: Chronic Immunizations: Have You Had Influenza Vaccine: Yes Influenza Vaccine Date: Apr 03, 2012 History of Tetanus Vaccine?: HAD IN 2011 History of Pneumococcal: HAD IN THE PAST History of Hepatitis B Vaccine: Unknown (Luis Hodges MD) Medication Reconciliation New Medications: Carvedilol (Carvedilol) 12.5 Mg Tab 12.5 MG PO BID for 30 Days, #60 TAB Continued Medications: Atorvastatin (Lipitor) 40 Mg Tab 1 TAB PO DAILY for 30 Days, #30 TAB 2 Refills Clopidogrel (Plavix) 75 Mg Tab 75 MG PO DAILY for 30 Days, #30 TAB 1 Refill Furosemide (Furosemide) 40 Mg Tab 40 MG PO QAM for 30 Days, #30 TAB 1 Refill Ipratropium-Albuterol (Combivent Respimat) 1 Aer Aer 1 PUFFS INH QID for 30 Days, #1 3 Refills Nitroglycerin (Nitrostat) 0.4 Mg Tab 0.4 MG UT PRN, 0 Refills Omeprazole (Prilosec) 20 Mg Capcr 20 MG PO DAILY, 0 Refills Potassium Chloride (Klor-Con M20) 20 Meq Tabcr 20 MEQ PO QAM for 30 Days, #30 1 Refill Valsartan (Diovan) 80 Mg Tab 80 MG PO DAILY for 30 Days, #30 TAB 1 Refill Discontinued Medications: Carvedilol (Coreg) 25 Mg Tab 25 MG PO BID, TAB Warfarin Sod (Jantoven) 5 Mg Tab 5 MG PO MWF, TAB Warfarin Sod (Jantoven) 5 Mg Tab 2.5 MG PO DIRECTED, TAB TAKE 2.5MG ON SATURDAY, SATURDAY, SATURDAY AND SATURDAY Discharge Exam Review of Systems: Constitutional: No fever, No weakness Respiratory: + cough, + sputum, No shortness of breath, No dyspnea on exertion, No dyspnea at rest Cardiovascular: No chest pain Abdomen: No pain, No nausea, No vomiting, No diarrhea, No constipation Musculoskeletal: No muscle pain Genitourinary - Male: No dysuria Integumentary: No rash Physical Exam: General Appearance: WD/WN, no apparent distress Neck: supple, trachea midline Respiratory/Chest: chest non-tender, lungs clear, normal breath sounds, no respiratory distress, no accessory muscle use Cardiovascular: regular rate, rhythm, no edema, + irregularly irregular Abdomen / GI: normal bowel sounds, non tender, soft Extremities: no calf tenderness, no pedal edema, non-tender Neurologic/Psychiatric: alert, normal mood/affect, oriented x 3 Skin: normal color, warm/dry, no rash (Luis Hodges MD) had a dream last night and didn't get good sleep Review of Systems: Constitutional: No fever Respiratory: No shortness of breath Cardiovascular: No chest pain Abdomen: No pain Physical Exam: General Appearance: no apparent distress Respiratory/Chest: no respiratory distress, + decreased breath sounds Cardiovascular: regular rate, rhythm Abdomen / GI: normal bowel sounds, non tender, soft Neurologic/Psychiatric: alert, oriented x 3 Skin: warm/dry (Denise Quiroz M.D.) Hospital Course This is a 86y/o M with PMHx of CHF, CAD s/p CABG, COPD (not on home oxygen), Afib/Aflutter presented with increase SOB and hypoxic respiratory failure in setting of combination of COPD and CHF exacerbation, requiring supplemental O2. Patient was recently discharged on 11/20 after having admitted for CHF exacerbation. Patient felt that his breathing never completely returned to normal. He denies chest pain, dizziness, or fever. * Acute on chronic diastolic heart failure Patient was started on Lasix and he diuresis well. Serial CXR showed improvement in the pulmonary edema and small bilateral pleural effusions. Weaned off oxygen and patient maintained O2 sat in RA. On discharge patient was continued his home dose of PO Lasix 40mg daily. * Acute COPD exacerbation Patient was started on IV steroid and subsequently switched to PO steroid taper by 10mg. He also completed 5 days course of Azithromycin. Treated with lana and sharee randhawa. Pulmonary was consulted and recommended to continue Combivent QID on dc and f/u with Pulmonary in 1-2wks after dc for PFTs. * CAD w stent history - c/w Coreg 25mg BID, Plavix 75mg daily, Valsartan 80mg daily and Atorvastatin 40mg daily. * Hx Atrial Fibrillation/Flutter - On dicharged Coumadin was on hold given supra therapeutic INR. Recommended to adjust the dose based on INR. * HTN - On discharge patient BP was stable. Continued with coreg 12.5mg, and valsartan 90mg Patient was discharged to [facility] for rehab given his quick readmission. Also he would benefit from physical therapy and physician oversight will be available if he needs any medication adjustment. Total Time Spent: Less than 30 minutes This includes examination of the patient, discharge planning, medication reconciliation, and communication with other providers. (Luis Hodges MD) Resident Physician Supervision Note: I was present with Dr. Hodges in bedside. I verified the betancourt history and physical , reviewed labs and image studies, discussed the case with the resident and agree with the findings and care plan. Total Time Spent: Greater than 30 minutes (40) (Denise Quiroz M.D.) Discharge Instructions Please refer to the electronic Patient Visit Report (Discharge Instructions) for additional information. (Luis Hodges MD) Additional Copies To Sugey Fields M.D.
== END 2016-11-27 10:05 | DRG 291 ==
LOC: C.EDB 09:58 → EDBD 09:58 → C.MED 14:34 → ENRESERV 15:08 → C.MED 21:04
PROVIDERS: ADMIT Internal Medicine; ATTEND Family Medicine
DX: I50.33 Acute on chronic diastolic (congestive) heart failure (principal); J96.01 Acute respiratory failure with hypoxia; J44.1 Chronic obstructive pulmonary disease with (acute) exacerbation; I48.92 Unspecified atrial flutter; J44.0 Chronic obstructive pulmonary disease with (acute) lower respiratory infection; I47.2 Ventricular tachycardia; I25.10 Atherosclerotic heart disease of native coronary artery without angina pectoris; R53.81 Other malaise; I48.91 Unspecified atrial fibrillation; R79.89 Other specified abnormal findings of blood chemistry; I11.0 Hypertensive heart disease with heart failure; Z95.2 Presence of prosthetic heart valve; Z95.5 Presence of coronary angioplasty implant and graft; Z79.02 Long term (current) use of antithrombotics/antiplatelets; Z95.1 Presence of aortocoronary bypass graft; Z79.01 Long term (current) use of anticoagulants; Z79.899 Other long term (current) drug therapy; Z99.81 Dependence on supplemental oxygen

== ENCOUNTER → 2016-12-03 | Outpatient (CLI) | payer OTHER ==
[~2016-12-03] MED LIST changes: +CARV12.52 PO; -CARV25TA PO; +CRG125 PO; +FRS/40 PO; +LVQ750 PO; +PLV75 PO; +POTA20TA16 PO; +WARF-246 PO; -WARF5TAB7 PO; +WARF5TAB90 PO
[2016-12-03 10:55] LABS: INR 1.6 (0.9-1.1)
--- NOTE | 2017-01-03 13:34 | CODING QUERY NO DIAGNOSIS ---
Valid Physician Order Needed 31 A valid physician order must be submitted in order to properly bill for the service(s) provided, including date of service(s), valid diagnosis, and physician signature. If these tests are done on a recurring basis the original physician order must be submitted in order to code and bill for the service(s) provided. Please fax us the original, signed physician order so that we may expedite billing to [phone] DOS 12/03/2016 * PROTHROMBIN TIME Thank you Marguerite [facility] Information Management
== END | disposition home or self-care (01) ==
LOC: C.LABSPEC 10:35 → EDSTATUS 12-06 10:43
PROVIDERS: ATTEND Family Medicine Adult Medicine
DX: Z79.01 Long term (current) use of anticoagulants (principal)

== ENCOUNTER → 2016-12-10 | Outpatient (CLI) | payer OTHER ==
[2016-12-10 10:47] LABS: HEMATOCRIT 46.7 % (42-52); MEAN CELL VOLUME 92.3 fL (80-100); MEAN CORPUSCULAR HEMOGLOBIN 31.4 pg (25-34); MEAN PLATELET VOLUME 9.1 fL (7.4-10.4); PLATELET COUNT 186 K/uL (130-400); RED BLOOD COUNT 5.06 M/uL (4.7-6.1); WHITE BLOOD COUNT 6.55 K/uL (4.8-10.8)
[2016-12-10 11:02] LABS: ALT/SGPT 44 U/L (12-78); AST/SGOT 32 U/L (15-37); BLOOD UREA NITROGEN 18 mg/dl (7-18); BUN/CREATININE RATIO 18.3 (10-20); CALCIUM 8.3 mg/dl (8.5-10.1); CARBON DIOXIDE 28 mmol/L (21-32); CHLORIDE 106 mmol/L (98-107); GLUCOSE 83 mg/dl (70-99); POTASSIUM 4.3 mmol/L (3.5-5.1); SODIUM 140 mmol/L (136-145)
[2016-12-10 11:03] LABS: PROTHROMBIN TIME (PATIENT) 65.8 SECONDS (9.0-12.0)
[2016-12-10 11:04] LABS: ALB/GLOB RATIO 0.7 (0.9-2); ALKALINE PHOSPHATASE 91 U/L (45-117)
[2016-12-10 11:18] LABS: INR 5.7 (0.9-1.1)
== END | disposition home or self-care (01) ==
LOC: C.LAB1850 09:30
PROVIDERS: ATTEND Internal Medicine Interventional Cardiology
DX: I48.92 Unspecified atrial flutter (principal); I50.30 Unspecified diastolic (congestive) heart failure

== ENCOUNTER → 2016-12-14 | Outpatient (CLI) | payer OTHER ==
[2016-12-14 12:26] LABS: INR 1.5 (0.9-1.1); PROTHROMBIN TIME (PATIENT) 16.6 SECONDS (9.0-12.0)
== END | disposition home or self-care (01) ==
LOC: C.LABBFT 10:03
PROVIDERS: ATTEND Internal Medicine Interventional Cardiology
DX: I48.92 Unspecified atrial flutter (principal)

== ENCOUNTER 2017-03-09 11:51 | Inpatient (IN) | payer OTHER ==
[~2017-03-09] VITALS: Ht 180.3 cm; Wt 94.0 kg
[~2017-03-09 11:51] MED LIST changes: -CARV12.52 PO; -FRS/40 PO; -LVQ750 PO; -PLV75 PO; -POTA20TA16 PO; -WARF-246 PO; -WARF5TAB90 PO
[2017-03-09] MEDS ORDERED: ACETAMINOPHEN IV 100 ML IV STA (12:45)
[2017-03-09] MEDS ORDERED: SODIUM CHLORIDE 0.9% 250ML 250 ML IV STA (12:45)
[2017-03-09] MEDS ORDERED: POTA20TA16 PO (12:58)
[2017-03-09] MEDS ORDERED: FRS/40 PO (12:58)
[2017-03-09] MEDS ORDERED: CARV12.52 PO (12:58)
[2017-03-09] MEDS ORDERED: WARF5TAB90 PO (12:58)
[2017-03-09] MEDS ORDERED: WARF-246 PO (12:58)
[2017-03-09] MEDS ORDERED: DVN80 PO (12:58)
[2017-03-09] MEDS ORDERED: ATOR-24 PO (12:58)
[2017-03-09] MEDS ORDERED: PLV75 PO (12:58)
--- NOTE | 2017-03-09 13:06 | EMERGENCY ROOM VISIT NOTE ---
History Report prepared by Michael: Johnathon Ruelas Under the Supervision of: Dr. Rey iH M.D. First contact with patient: 12:35 Chief Complaint: ALTERED MENTAL STATUS Stated Complaint: AMS Nursing Triage Summary: patient to ed via ALS for Altered Mental Status, per medic daughter spoke with patient last evening and he was at his baseline. This morning, daughter contacted patient and found him confused, sitting inside the house with his coat on with heating and oven turned on. Patient lethargic, alert to person at time of triage. Generalized weakness. History of Present Illness The patient is a 87 year old male who presents to the Emergency Room with complaints of worsening AMS that started this morning. The patient is accompanied by his daughter who states that she called him yesterday and he was fine. She reports that she checked on him again this morning and he did not answer his phone. His daughter reports that she told her to stop in and make sure he was fine. She states that the patient's noticed that the patient's house was "almost 90 degrees". His daughter reports that the patient had had the furnace on, electric heater on, oven open with the heat on, and the patient had a jacket on. The patient's daughter reports that he was sleeping on his recliner, which she admits he does at times, but states that he was not "very responsive". She states that he has not been complaining of being cold, but had been complaining of an infection in toes. His daughter reports that he has been taking medication for his infection, but denies that he had seen a doctor his infection. She states that he has a history of CHF, which he had heart surgery in 1999 for. His daughter reports that he takes Lasix and has been on Coumadin since the surgery. She states that he was a former smoker and quit in his 40s. His daughter reports that his legs are slightly more swollen than usual, but admits that he normally has swollen legs. She states that he was in the hospital two months ago when he had over 20 ounces of fluid removed from his legs. The patient denies experiencing AMS in the past and a cough. Source of History: patient, family Onset: this morning Position: other (global) Quality: other (AMS) Timing: worsening Associated Symptoms: + chills, No cough Review of Systems See HPI for pertinent positives and negatives. A total of ten systems were reviewed and were otherwise negative. Past Medical & Surgical Medical Problems: (1) Acute respiratory failure (2) Bilateral pleural effusion (3) CHF (congestive heart failure) (4) CHF exacerbation (5) Hypertension (6) Mitral valve disorder (7) Right lower lobe pneumonia Family History Heart disease Social History Smoking Status: Never Smoker Alcohol Use: none Drug Use: none Marital Status: Housing Status: lives alone Occupation Status: retired Current/Historical Medications Scheduled Atorvastatin (Lipitor), 40 MG PO HS Carvedilol (Coreg), 12.5 MG PO BID Clopidogrel Bisulfate (Clopidogrel), 75 MG PO DAILY Furosemide (Lasix), 40 MG PO DAILY Ipratropium-Albuterol (Combivent Respimat), 1 PUFFS INH QID Nitroglycerin (Nitrostat), 0.4 MG UT PRN Omeprazole (Prilosec), 20 MG PO DAILY Potassium Ext Rel (Klor-Con), 20 MEQ PO QAM Valsartan (Diovan), 80 MG PO DAILY Warfarin Sodium (Warfarin Sodium), 5 MG PO MWF Warfarin Sodium (Coumadin), 2.5 MG PO [id number] Allergies Coded Allergies: Aspirin (Verified Adverse Reaction, Intermediate, GI ULCERATION- WHEN TAKEN WITH COUMADIN, 03/09/17) Black Pepper (Verified Adverse Reaction, Mild, 03/09/17) Lisinopril (Verified Adverse Reaction, Mild, 03/09/17) Sulfa Antibiotics (Verified Adverse Reaction, Unknown, "SULFA DRUGS": HAS TOLERATED LASIX IN PAST, 03/09/17) Physical Exam Vital Signs Date Time Temp Pulse Resp B/P (MAP) Pulse Ox O2 Delivery O2 Flow Rate FiO2 03/09/17 14:57 85 22 105/57 94 Nasal Cannula 2.0 03/09/17 13:58 37.6 88 24 135/63 98 Nasal Cannula 2.0 03/09/17 13:47 88 03/09/17 12:59 95 Nasal Cannula 2.0 03/09/17 12:30 83 03/09/17 12:09 95 Nasal Cannula 4.0 03/09/17 12:09 38.9 92 26 169/97 88 Room Air Physical Exam GENERAL: Awake, alert, ill-appearing, in no distress HENT: Normocephalic, atraumatic. Oropharynx unremarkable. Dry mucous membranes. EYES: Normal conjunctiva. Sclera non-icteric. NECK: Supple. No nuchal rigidity. FROM. No JVD. RESPIRATORY: Scattered rhonchi at the bases. CARDIAC: Regular rate, normal rhythm. Extremities warm and well perfused. Pulses equal. ABDOMEN: Soft, non-distended. No tenderness to palpation. No rebound or guarding. No masses. RECTAL: Deferred. MUSCULOSKELETAL: Chest examination reveals no tenderness. The back is symmetrical on inspection without obvious abnormality. There is no CVA tenderness to palpation. No joint edema. LOWER EXTREMITIES: 2+ lower left extremity edema, 1+ lower right extremity edema. Left lower leg with medial calf redness, warmth, and tenderness. NEURO: Normal sensorium. No sensory or motor deficits noted. SKIN: Dry and hot. Medical Decision & Procedures ER Provider Diagnostic Interpretation: Radiology results as stated below per my review and radiologist interpretation: HEAD WITHOUT CONTRAST (CT) CLINICAL HISTORY: 87 years-old Male with ams. Acute altered mental status with confusion TECHNIQUE: Multiple axial CT images of the head were obtained without contrast. A dose lowering technique was utilized adhering to the principles of ALARA. CT DOSE: 614.27 mGy.cm COMPARISON: CT head 02/17/2011. FINDINGS: No acute intracranial hemorrhage, midline shift, mass, large territorial ischemia or abnormal extra-axial collection. Mild to moderate atrophy. Background chronic microvascular ischemic changes. The calvarium is intact. The paranasal sinuses, mastoid air cells, and middle ear cavities are clear. IMPRESSION: No acute intracranial abnormality. The above report was generated using voice recognition software. It may contain grammatical, syntax or spelling errors. Electronically signed by: Antolin Cowart M.D. 03/09/2017 2:21 PM Dictated Date/Time: 03/09/2017 2:19 PM CHEST ONE VIEW PORTABLE HISTORY: 87 years-old Male Evaluate Fever/Sepsis acute fever and sepsis COMPARISON: Chest radiograph 11/27/2016 TECHNIQUE: Portable upright AP view of the chest FINDINGS: Cardiac silhouette is mildly enlarged. Prosthetic mitral valve noted. Pulmonary vascular congestion is noted with background interstitial coarsening and hazy bibasilar opacities. There are small bilateral pleural effusions, new on the right. No pneumothorax. The bones are grossly intact. IMPRESSION: 1. Cardiomegaly with mild pulmonary edema pattern. 2. Small pleural effusions with patchy bibasilar opacities suggesting atelectasis or pneumonia. The above report was generated using voice recognition software. It may contain grammatical, syntax or spelling errors. Electronically signed by: Antolin Cowart M.D. 03/09/2017 1:49 PM Dictated Date/Time: 03/09/2017 1:47 PM L VENOUS DOPP LOWER EXT UNILAT HISTORY: 87 years-old Male redness swelling pain acute left lower extremity pain and swelling COMPARISON: None available TECHNIQUE: Multiple real-time sonographic images of the left lower extremity deep venous system were obtained assessing grayscale appearance, color and spectral flow. FINDINGS: Normal flow, augmentation and compressibility is present within the left lower extremity deep venous system. IMPRESSION: No sonographic evidence of deep venous thrombosis within the left lower extremity. The above report was generated using voice recognition software. It may contain grammatical, syntax or spelling errors. Electronically signed by: Antolin Cowart M.D. 03/09/2017 2:44 PM Dictated Date/Time: 03/09/2017 2:41 PM Laboratory Results 03/09/17 12:05 Red Blood Count 5.21, Mean Corpuscular Volume 93.5, Mean Corpuscular Hemoglobin 32.4, Mean Corpuscular Hemoglobin Concent 34.7, Mean Platelet Volume 9.7, Neutrophils (%) (Auto) 86.9, Lymphocytes (%) (Auto) 5.5, Monocytes (%) (Auto) 6.4, Eosinophils (%) (Auto) 0.7, Basophils (%) (Auto) 0.2, Neutrophils # (Auto) 13.06, Lymphocytes # (Auto) 0.83, Monocytes # (Auto) 0.96, Eosinophils # (Auto) 0.11, Basophils # (Auto) 0.03 03/09/17 12:05 Test 03/09/17 12:05 03/09/17 13:24 03/09/17 13:50 03/09/17 13:55 White Blood Count 15.03 K/uL (4.8-10.8) Red Blood Count 5.21 M/uL (4.7-6.1) Hemoglobin 16.9 g/dL (14.0-18.0) Hematocrit 48.7 % (42-52) Mean Corpuscular Volume 93.5 fL (80-100) Mean Corpuscular Hemoglobin 32.4 pg (25-34) Mean Corpuscular Hemoglobin Concent 34.7 g/dl (32-36) Platelet Count 201 K/uL (130-400) Mean Platelet Volume 9.7 fL (7.4-10.4) Neutrophils (%) (Auto) 86.9 % Lymphocytes (%) (Auto) 5.5 % Monocytes (%) (Auto) 6.4 % Eosinophils (%) (Auto) 0.7 % Basophils (%) (Auto) 0.2 % Neutrophils # (Auto) 13.06 K/uL (1.4-6.5) Lymphocytes # (Auto) 0.83 K/uL (1.2-3.4) Monocytes # (Auto) 0.96 K/uL (0.11-0.59) Eosinophils # (Auto) 0.11 K/uL (0-0.5) Basophils # (Auto) 0.03 K/uL (0-0.2) RDW Standard Deviation 46.6 fL (36.4-46.3) RDW Coefficient of Variation 13.6 % (11.5-14.5) Immature Granulocyte % (Auto) 0.3 % Immature Granulocyte # (Auto) 0.04 K/uL (0.00-0.02) Prothrombin Time 27.2 SECONDS (9.0-12.0) Prothromb Time International Ratio 2.4 (0.9-1.1) Anion Gap 7.0 mmol/L (3-11) Est Creatinine Clear Calc Drug Dose 57.4 ml/min Estimated GFR () 70.1 Estimated GFR (Non- 60.5 BUN/Creatinine Ratio 18.5 (10-20) Calcium Level 8.5 mg/dl (8.5-10.1) Total Bilirubin 1.7 mg/dl (0.2-1) Direct Bilirubin 0.4 mg/dl (0-0.2) Aspartate Amino Transf (AST/SGOT) 27 U/L (15-37) Alanine Aminotransferase (ALT/SGPT) 24 U/L (12-78) Alkaline Phosphatase 70 U/L (45-117) Total Creatine Kinase 92 U/L (39-308) Troponin I 0.045 ng/ml (0-0.045) Pro-B-Type Natriuretic Peptide 990 pg/ml (0-1800) Total Protein 5.5 gm/dl (6.4-8.2) Albumin 2.5 gm/dl (3.4-5.0) Lipase 131 U/L (73-393) Venous Blood pH 7.39 (7.36-7.41) Venous Blood Partial Pressure CO2 42 mmHg (38.0-50.0) Venous Blood Partial Pressure O2 33 mmHg Venous Blood HCO3 25 mmol/L Venous Blood Oxygen Saturation < 60.0 % Venous Blood Base Excess 0.2 mEq/L Urine Color MAICOL Urine Appearance CLEAR (CLEAR) Urine pH 6.0 (4.5-7.5) Urine Specific [place] 1.025 (1.000-1.030) Urine Protein 1+ (NEG) Urine Glucose (UA) NEG (NEG) Urine Ketones TRACE (NEG) Urine Occult Blood NEG (NEG) Urine Nitrite NEG (NEG) Urine Bilirubin NEG (NEG) Urine Urobilinogen NEG (NEG) Urine Leukocyte Esterase NEG (NEG) Urine WBC (Auto) 1-5 /hpf (0-5) Urine RBC (Auto) 0-4 /hpf (0-4) Urine Hyaline Casts (Auto) 1-5 /lpf (0-5) Urine Epithelial Cells (Auto) 0-5 /lpf (0-5) Urine Bacteria (Auto) NEG (NEG) Influenza Type A (RT-PCR) Neg for Influ A (NEG) Influenza Type A Antigen Neg for Influ A (NEG) Influenza Type B Antigen Neg for Influ B (NEG) Influenza Type B (RT-PCR) Neg for Influ B (NEG) Laboratory results reviewed by me Medications Administered Medications (Trade) Dose Ordered Sig/Meño Route Start Time Stop Time Status Last Admin Dose Admin Sodium Chloride 250 ml @ 999 mls/hr Q16M STAT IV 03/09/17 12:45 03/09/17 13:00 DC 03/09/17 12:57 999 MLS/HR Acetaminophen 100 ml @ 400 mls/hr NOW STAT IV 03/09/17 12:45 03/09/17 12:59 DC 03/09/17 12:58 400 MLS/HR Vancomycin HCl 1800 mg/Sodium Chloride 536 ml @ 200 mls/hr ONE STAT IV 03/09/17 14:37 03/09/17 17:17 DC 03/09/17 14:54 200 MLS/HR Piperacillin Sod/ Tazobactam Sod (Zosyn Iv) 4.5 gm NOW STAT IV 03/09/17 14:37 03/09/17 14:39 DC 03/09/17 15:27 4.5 GM Sodium Chloride 500 ml @ 100 mls/hr Q5H STAT IV 03/09/17 14:55 03/09/17 17:20 DC 03/09/17 15:27 100 MLS/HR ECG Indication: altered mental status Rate (beats per minute): 84 Rhythm: sinus rhythm Findings: PVC, other (Normal axis) Comparison ECG Date: 11/24/16 Change: SR replaces atrial flutter, no ischemia ED Course 1239: The patient was evaluated in room B04B. A complete history and physical exam was performed. 1245: Ordered Acetaminophen 100 ml @ 400 mls/hr IV, Sodium Chloride 250 ml @ 999 mls/hr IV. 1437: Ordered Zosyn Iv 4.5 gm IV, Vancomycin HCl 1800 mg/Sodium Chloride 536 ml @ 200 mls/hr Iv. 1450: I discussed the patient's case with Dr. Мария Burns, [facility] Hospitalist. She understands the patient's condition and agrees to accept the patient. 1455: Ordered Sodium Chloride 500 ml @ 100 mls/hr IV. Medical Decision I reviewed the patient's past medical history, medications, and the nursing notes as described above. The patient's presentation and history were concerning for heat stroke, dehydration, electrolyte abnormality, PNA, bronchitis, UTI, sepsis, and intracranial hemorrhage. The patient is an 87-year-old gentleman with a past medical history of CHF, on Coumadin presents to the emergency department with altered mental status in the setting of being found in his home with all the heaters on per history of present illness. Per daughter has electric oven/furnace therefore CO/CN asphixia not likely. On arrival the patient is drowsy but alert to voice moving all extremities. Febrile to 39.8. Otherwise hemodynamically stable. Labs notable for leukocytosis to 16, and lactate of 2. Blood cultures were drawn and patient was treated with broad-spectrum antibiotics. Chest x-ray with findings concerning for pneumonia. Fever improved to 37.6 after gentle fluids ( given h/o CHF), APAP, ice packs. Ultrasound of left lower extremity negative for DVT. CT head unremarkable. Case was discussed with Dr. Мария Burns, [facility] Hospitalist, who will admit the patient for further management.. Medication Reconcilliation Current Medication List: was personally reviewed by me Blood Pressure Screening Patient's blood pressure: Elevated blood pressure Blood pressure disposition: Elevated BP felt to be situational Consults Time Called: 1450 Consulting Physician: Dr. Мария Burns [facility] Hospitalist Returned Call: 1450 I discussed the patient's case with Dr. Мария Burns [facility] Hospitalist. She understands the patient's condition and agrees to accept the patient. Impression Primary Impression: Pneumonia Additional Impression: Sepsis Critical Care I have personally spent greater than 35 minutes of critical care time in the direct management of this patient. This includes bedside care, interpretation of diagnostic studies, and testing, discussion with consultants, patient, and family members, and other required patient management activities. This 35 minutes is in excess of all separately billable procedures. Scribe Attestation The scribe's documentation has been prepared under my direction and personally reviewed by me in its entirety. I confirm that the note above accurately reflects all work, treatment, procedures, and medical decision making performed by me. Departure Information Dispostion Being Evaluated By Hospitalist Sugey Franklin M.D. (PCP) Patient Instructions My [facility] Problem Qualifiers
[2017-03-09 13:08] LABS: BASO % 0.2 %; BASO ABS # 0.03 K/uL (0-0.2); COMPLETE YES; EOS % 0.7 %; HEMATOCRIT 48.7 % (42-52); IG% 0.3 %; LYMPH % 5.5 %; LYMPH ABS # 0.83 K/uL (1.2-3.4); MEAN CELL VOLUME 93.5 fL (80-100); MEAN CORPUSCULAR HEMOGLOBIN 32.4 pg (25-34); MEAN CORPUSCULAR HGB CONC 34.7 g/dl (32-36); MEAN PLATELET VOLUME 9.7 fL (7.4-10.4); MONO % 6.4 %; NEUT % 86.9 %; PLATELET COUNT 201 K/uL (130-400); RED BLOOD COUNT 5.21 M/uL (4.7-6.1); WHITE BLOOD COUNT 15.03 K/uL (4.8-10.8)
[2017-03-09 13:14] LABS: INR 2.4 (0.9-1.1); PROTHROMBIN TIME (PATIENT) 27.2 SECONDS (9.0-12.0)
[2017-03-09 13:18] LABS: BUN/CREATININE RATIO 18.5 (10-20); CALCIUM 8.5 mg/dl (8.5-10.1); CREATININE 1.1 mg/dl (0.60-1.40); POTASSIUM 4.1 mmol/L (3.5-5.1)
[2017-03-09 13:42] LABS: VEN BLD GAS O2 SATURATION < 60.0 %; VEN BLOOD GAS BASE EXCESS 0.2 mEq/L; VENOUS BLOOD GAS PCO2 42 mmHg (38.0-50.0); VENOUS BLOOD GAS PO2 33 mmHg
--- NOTE | 2017-03-09 13:50 | DIAGNOSTIC IMAGING REPORT ---
CHEST ONE VIEW PORTABLE HISTORY: 87 years-old Male Evaluate Fever/Sepsis acute fever and sepsis COMPARISON: Chest radiograph 11/27/2016 TECHNIQUE: Portable upright AP view of the chest FINDINGS: Cardiac silhouette is mildly enlarged. Prosthetic mitral valve noted. Pulmonary vascular congestion is noted with background interstitial coarsening and hazy bibasilar opacities. There are small bilateral pleural effusions, new on the right. No pneumothorax. The bones are grossly intact. IMPRESSION: 1. Cardiomegaly with mild pulmonary edema pattern. 2. Small pleural effusions with patchy bibasilar opacities suggesting atelectasis or pneumonia. The above report was generated using voice recognition software. It may contain grammatical, syntax or spelling errors. Electronically signed by: Antolin Cowart M.D. 03/09/2017 1:49 PM Dictated Date/Time: 03/09/2017 1:47 PM
[2017-03-09 14:16] LABS: MANUAL MICROSCOPIC REQUIRED? NO; REVIEW REQ? NO; URINE APPEARANCE CLEAR (CLEAR); URINE BILIRUBIN NEG (NEG); URINE EPITHELIAL CELL AUTO 0-5 /lpf (0-5); URINE NITRITE NEG (NEG); URINE SPECIFIC GRAVITY 1.025 (1.000-1.030); UROBILINOGEN NEG (NEG)
[2017-03-09 14:17] LABS: URINE COLOR AMBER
--- NOTE | 2017-03-09 14:22 | DIAGNOSTIC IMAGING REPORT ---
HEAD WITHOUT CONTRAST (CT) CLINICAL HISTORY: 87 years-old Male with ams. Acute altered mental status with confusion TECHNIQUE: Multiple axial CT images of the head were obtained without contrast. A dose lowering technique was utilized adhering to the principles of ALARA. CT DOSE: 614.27 mGy.cm COMPARISON: CT head 02/17/2011. FINDINGS: No acute intracranial hemorrhage, midline shift, mass, large territorial ischemia or abnormal extra-axial collection. Mild to moderate atrophy. Background chronic microvascular ischemic changes. The calvarium is intact. The paranasal sinuses, mastoid air cells, and middle ear cavities are clear. IMPRESSION: No acute intracranial abnormality. The above report was generated using voice recognition software. It may contain grammatical, syntax or spelling errors. Electronically signed by: Antolin Cowart M.D. 03/09/2017 2:21 PM Dictated Date/Time: 03/09/2017 2:19 PM
[2017-03-09] MEDS ORDERED: VANCOMYCIN INJ 1,800 MG in SODIUM CHLORIDE 0.9% 500ML 500 ML IV STA (14:37)
[2017-03-09] MEDS ORDERED: PIPERACILLIN/TAZOBACTAM 4.5 GM/100ML D5W IV STA (14:37)
--- NOTE | 2017-03-09 14:45 | DIAGNOSTIC IMAGING REPORT ---
L VENOUS DOPP LOWER EXT UNILAT HISTORY: 87 years-old Male redness swelling pain acute left lower extremity pain and swelling COMPARISON: None available TECHNIQUE: Multiple real-time sonographic images of the left lower extremity deep venous system were obtained assessing grayscale appearance, color and spectral flow. FINDINGS: Normal flow, augmentation and compressibility is present within the left lower extremity deep venous system. IMPRESSION: No sonographic evidence of deep venous thrombosis within the left lower extremity. The above report was generated using voice recognition software. It may contain grammatical, syntax or spelling errors. Electronically signed by: Antolin Cowart M.D. 03/09/2017 2:44 PM Dictated Date/Time: 03/09/2017 2:41 PM
[2017-03-09] MEDS ORDERED: SODIUM CHLORIDE 0.9% 500ML 500 ML IV STA (14:55)
[2017-03-09] MEDS ORDERED: ONDANSETRON INJ 2 MG/ML 2 ML VIAL IV PRN (15:30)
[2017-03-09] MEDS ORDERED: MAGNESIUM HYDROXIDE SUSP 30 ML UDC PO PRN (15:30)
--- NOTE | 2017-03-09 15:51 | History and Physical ---
History & Physical Date & Time of Service: Mar 09, 2017 at 15:34 Chief Complaint: AMS Primary Care Physician: Sugey Fields M.D. History of Present Illness Source: patient, family 87 y/o M who was brought her by ambulance after being found at home with AMS. Daughter is present and states that she spoke with pt last night and he had no medical concerns at that time. "He actually called me to see how I was doing." She states that she attempted to call pt this AM and there was no answer, which isn't completely unusual because he is independent and sometimes goes out to the store. She called again later and still no answer. Her was out running errands, so she asked him to stop and check on the pt. He found the pt sitting in his trailer with the heat turned to maximum, an electric heater running, an electric oven turned on with the door open, and the pt wrapped in his winter coat. Pt was confused and could not tell them anything other than he was cold. Pt was unable to get out of his lift chair and when the ambulance arrived, he had to be carried out to the litter. Daughter states that pt is generally ambulatory. He uses a walker in the morning "until he gets going" but after breakfast he uses just a cane. He lives alone. Pt received IVF and abx in the ED. 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 Pt cannot relay events of today. He has pain in his abd, but denies any other pain. Pt denies fever, SOB, chest pain, n/v/c/d, LE pain or swelling. Denies any pain with urination. Past Medical/Surgical History Medical Problems: (1) CHF (congestive heart failure) Status: Chronic (2) Hypertension Status: Chronic (3) Mitral valve disorder Status: Chronic GERD Aflutter--coumadin Combivent use--unknown as to why Family History Heart disease Daughter denies knowledge of CVA hx Social History Smoking Status: Former Smoker (quit over 40 yrs ago) Alcohol Use: none Drug Use: none Marital Status: Housing status: lives alone Occupational Status: retired Immunizations History of Influenza Vaccine: Yes Influenza Vaccine Date: Apr 03, 2012 History of Tetanus Vaccine?: HAD IN 2011 History of Pneumococcal: HAD IN THE PAST History of Hepatitis B Vaccine: Unknown Multi-Drug Resistant Organisms History of MDRO: No Allergies Coded Allergies: Aspirin (Verified Adverse Reaction, Intermediate, GI ULCERATION- WHEN TAKEN WITH COUMADIN, 03/09/17) Black Pepper (Verified Adverse Reaction, Mild, 03/09/17) Lisinopril (Verified Adverse Reaction, Mild, 03/09/17) Sulfa Antibiotics (Verified Adverse Reaction, Unknown, "SULFA DRUGS": HAS TOLERATED LASIX IN PAST, 03/09/17) Home Medications Scheduled Atorvastatin (Lipitor), 40 MG PO HS Carvedilol (Coreg), 12.5 MG PO BID Clopidogrel Bisulfate (Clopidogrel), 75 MG PO DAILY Furosemide (Lasix), 40 MG PO DAILY Ipratropium-Albuterol (Combivent Respimat), 1 PUFFS INH QID Nitroglycerin (Nitrostat), 0.4 MG UT PRN Omeprazole (Prilosec), 20 MG PO DAILY Potassium Ext Rel (Klor-Con), 20 MEQ PO QAM Valsartan (Diovan), 80 MG PO DAILY Warfarin Sodium (Warfarin Sodium), 5 MG PO MWF Warfarin Sodium (Coumadin), 2.5 MG PO [id number] Review of Systems Pertinent positives and negatives reviewed in HPI--all others negative Physical Exam Vital Signs Date Time Temp Pulse Resp B/P (MAP) Pulse Ox O2 Delivery O2 Flow Rate FiO2 03/09/17 14:57 85 22 105/57 94 Nasal Cannula 2.0 03/09/17 13:58 37.6 88 24 135/63 98 Nasal Cannula 2.0 03/09/17 13:47 88 03/09/17 12:59 95 Nasal Cannula 2.0 03/09/17 12:30 83 03/09/17 12:09 95 Nasal Cannula 4.0 03/09/17 12:09 38.9 92 26 169/97 88 Room Air General Appearance: WD/WN, no apparent distress Head: normocephalic, atraumatic Eyes: normal inspection, EOMI ENT: hearing grossly normal Neck: supple Respiratory/Chest: no respiratory distress, + crackles (bases) Cardiovascular: regular rate, rhythm, no edema Abdomen/GI: soft, + tenderness (diffuse TTP along pelvis) Extremities/Musculoskelatal: no calf tenderness, no pedal edema Neurologic/Psych: alert, + pertinent finding (oriented to person and month, knows he is in a hospital but unsure as to where, cannot tell me the year) Skin: warm/dry, + pertinent finding (L LE with mild redness and erythema) Diagnostics Laboratory Results Results Past 24 Hours Test 03/09/17 12:05 03/09/17 13:24 03/09/17 13:50 03/09/17 13:55 Range/Units White Blood Count 15.03 4.8-10.8 K/uL Red Blood Count 5.21 4.7-6.1 M/uL Hemoglobin 16.9 14.0-18.0 g/dL Hematocrit 48.7 42-52 % Mean Corpuscular Volume 93.5 80-100 fL Mean Corpuscular Hemoglobin 32.4 25-34 pg Mean Corpuscular Hemoglobin Concent 34.7 32-36 g/dl Platelet Count 201 130-400 K/uL Mean Platelet Volume 9.7 7.4-10.4 fL Neutrophils (%) (Auto) 86.9 % Lymphocytes (%) (Auto) 5.5 % Monocytes (%) (Auto) 6.4 % Eosinophils (%) (Auto) 0.7 % Basophils (%) (Auto) 0.2 % Neutrophils # (Auto) 13.06 1.4-6.5 K/uL Lymphocytes # (Auto) 0.83 1.2-3.4 K/uL Monocytes # (Auto) 0.96 0.11-0.59 K/uL Eosinophils # (Auto) 0.11 0-0.5 K/uL Basophils # (Auto) 0.03 0-0.2 K/uL RDW Standard Deviation 46.6 36.4-46.3 fL RDW Coefficient of Variation 13.6 11.5-14.5 % Immature Granulocyte % (Auto) 0.3 % Immature Granulocyte # (Auto) 0.04 0.00-0.02 K/uL Prothrombin Time 27.2 9.0-12.0 SECONDS Prothromb Time International Ratio 2.4 0.9-1.1 Sodium Level 143 136-145 mmol/L Potassium Level 4.1 3.5-5.1 mmol/L Chloride Level 111 98-107 mmol/L Carbon Dioxide Level 25 21-32 mmol/L Anion Gap 7.0 3-11 mmol/L Blood Urea Nitrogen 20 7-18 mg/dl Creatinine 1.10 0.60-1.40 mg/dl Est Creatinine Clear Calc Drug Dose 57.4 ml/min Estimated GFR () 70.1 Estimated GFR (Non- 60.5 BUN/Creatinine Ratio 18.5 10-20 Random Glucose 81 70-99 mg/dl Calcium Level 8.5 8.5-10.1 mg/dl Total Bilirubin 1.7 0.2-1 mg/dl Direct Bilirubin 0.4 0-0.2 mg/dl Aspartate Amino Transf (AST/SGOT) 27 15-37 U/L Alanine Aminotransferase (ALT/SGPT) 24 12-78 U/L Alkaline Phosphatase 70 45-117 U/L Total Creatine Kinase 92 39-308 U/L Troponin I 0.045 0-0.045 ng/ml Pro-B-Type Natriuretic Peptide 990 0-1800 pg/ml Total Protein 5.5 6.4-8.2 gm/dl Albumin 2.5 3.4-5.0 gm/dl Lipase 131 73-393 U/L Venous Blood pH 7.39 7.36-7.41 Venous Blood Partial Pressure CO2 42 38.0-50.0 mmHg Venous Blood Partial Pressure O2 33 mmHg Venous Blood HCO3 25 mmol/L Venous Blood Oxygen Saturation < 60.0 % Venous Blood Base Excess 0.2 mEq/L Lactic Acid Level 2.2 0.4-2.0 mmol/L Urine Color MAICOL Urine Appearance CLEAR CLEAR Urine pH 6.0 4.5-7.5 Urine Specific [place] 1.025 1.000-1.030 Urine Protein 1+ NEG Urine Glucose (UA) NEG NEG Urine Ketones TRACE NEG Urine Occult Blood NEG NEG Urine Nitrite NEG NEG Urine Bilirubin NEG NEG Urine Urobilinogen NEG NEG Urine Leukocyte Esterase NEG NEG Urine WBC (Auto) 1-5 0-5 /hpf Urine RBC (Auto) 0-4 0-4 /hpf Urine Hyaline Casts (Auto) 1-5 0-5 /lpf Urine Epithelial Cells (Auto) 0-5 0-5 /lpf Urine Bacteria (Auto) NEG NEG Influenza Type A Antigen Neg for Influ A NEG Influenza Type B Antigen Neg for Influ B NEG Test 03/09/17 15:27 Range/Units Microbiology Results 03/09/17 Blood Culture, Ordered Pending 03/09/17 Blood Culture, Received Pending 03/09/17 Urine Culture, Received Pending Diagnostic Radiology CXR: possible PNA vs atelectasis CT head: neg for acute LLE US: neg for DVT Impression Assessment and Plan 87 y/o M who was admitted on 03/09 with AMS AMS: likely early sepsis with encephalopathy PNA is likely source given CXR and hypoxic on RA on presentation WBC elevated, febrile Started on vanco/zosyn in the ED, will switch to levaquin and monitor Blood cx pending UA neg with cx pending CT head neg for acute LE cellulitis: levaquin will cover US neg for DVT and is therapeutic on coumadin Toe nails are in need of attention--I did advise daughter to have pt seen by podiatry once more acute issues are addressed HTN: BP is stable, will hold home meds given above Daughter states that she is concerned that pt's BP is too low on a regular basis--this will need addressed as his health improves She does not think he took his AM meds today CHF: continue lasix Monitor fluid resuscitation given this hx CAD s/p MVR: continue plavix Aflutter: continue coumadin INR WNL Combivent use: Daughter declines known COPD/asthma dx States several inhalers were started on prior admission, will continue given PNA Other: Full code per daughter, although she states pt has a living will and would not want prolonged life support or feeding tubes Therapeutic on coumadin for DVT proph Reg diet Level of Care Telemetry Resuscitation Status FULL RESUSCITATION VTE Prophylaxis VTE Risk Assessment Done? Y/N: Yes Risk Level: Low
[2017-03-09] MEDS ORDERED: NITROGLYCERIN 0.4 MG SL PER TAB CHARGE UT SCH (16:00)
[2017-03-09] MEDS ORDERED: LEVOFLOXACIN CONSULT ACTIVE PRN (16:09)
[2017-03-09 16:16] LABS: INFLUENZA A PCR Neg for Influ A (NEG); INFLUENZA B PCR Neg for Influ B (NEG)
[2017-03-09 17:00] VITALS: BP 142/69; PULSE 83; TEMP 36.9; O2SAT 97; Ht 180.3 cm; Wt 94.0 kg
[2017-03-09] MEDS: SODIUM CHLORIDE 0.9% 1000ML 1,000 ML IV SCH (17:30)
[2017-03-09] MEDS ORDERED: WARFARIN SOD 2.5 MG TAB PO SCH (18:30)
[2017-03-09] MEDS: LEVOFLOXACIN / D5W 750 MG in PREMIXED IN D5W 150 ML IV SCH (18:48)
[2017-03-09 19:25] VITALS: BP 119/65; PULSE 74; TEMP 37; O2SAT 96
[2017-03-09] MEDS: IPRATROPIUM BROMIDE/ALBUTEROL respimat INH INH SCH (19:27)
[2017-03-09] MEDS: ATORVASTATIN 40 MG TAB PO SCH (19:27)
[2017-03-09] MEDS ORDERED: INFLUENZA ADMINISTRATION CHARGE ONE (21:30)
[2017-03-09] MEDS ORDERED: PNEUMOCOCCAL ADMINISTRATION CHARGE ONE (21:30)
[2017-03-09] MEDS ORDERED: INFLUENZA VACCINE HIGH DOSE 65+ 0.5 ML SYR IM. ONE (21:30)
[2017-03-09] MEDS ORDERED: PNEUMOCOCCAL POLYSACCHARIDES 25 MCG/0.5 ML VIAL/SYR IM. ONE (21:30)
[2017-03-09 23:04] VITALS: BP 124/70; PULSE 81; TEMP 36.9; O2SAT 96
[2017-03-10] VITALS (7 sets, daily range): BP systolic 97–132; BP diastolic 51–80; PULSE 59–82; TEMP 36.5–37.6; O2SAT 92–100
[2017-03-10] MEDS: SODIUM CHLORIDE 0.9% 1000ML 1,000 ML IV SCH ×2 (05:07→16:05)
[2017-03-10 06:42] LABS: INR 3.3 (0.9-1.1); PROTHROMBIN TIME (PATIENT) 37.3 SECONDS (9.0-12.0)
[2017-03-10 07:04] LABS: BUN/CREATININE RATIO 20.7 (10-20); CALCIUM 7.7 mg/dl (8.5-10.1); CREATININE 1.2 mg/dl (0.60-1.40); POTASSIUM 4.3 mmol/L (3.5-5.1)
[2017-03-10 07:16] LABS: ALB/GLOB RATIO 0.8 (0.9-2)
[2017-03-10] MEDS: PANTOprazole SOD 40 MG TAB PO SCH (07:44)
[2017-03-10] MEDS: CLOPIDOGREL BISULFATE 75 MG TAB PO SCH (07:44)
[2017-03-10] MEDS: IPRATROPIUM BROMIDE/ALBUTEROL respimat INH INH SCH ×4 (07:44→21:22)
[2017-03-10 07:46] LABS: HEMATOCRIT 44.9 % (42-52); MEAN CELL VOLUME 93.9 fL (80-100); MEAN CORPUSCULAR HEMOGLOBIN 31.6 pg (25-34); MEAN CORPUSCULAR HGB CONC 33.6 g/dl (32-36); MEAN PLATELET VOLUME 9.8 fL (7.4-10.4); PLATELET COUNT 154 K/uL (130-400); RED BLOOD COUNT 4.78 M/uL (4.7-6.1); WHITE BLOOD COUNT 16.76 K/uL (4.8-10.8)
[2017-03-10] MEDS ORDERED: FUROSEMIDE 40 MG TAB PO SCH (09:00)
[2017-03-10] MEDS ORDERED: POTASSIUM CHLORIDE 20 MEQ TABCR PO SCH (09:00)
[2017-03-10] MEDS: LEVOFLOXACIN / D5W 750 MG in PREMIXED IN D5W 150 ML IV SCH (15:30)
[2017-03-10] MEDS: ATORVASTATIN 40 MG TAB PO SCH (21:23)
--- NOTE | 2017-03-10 23:21 | Hospitalist Progress Note ---
Hospitalist Progress Note Date of Service Mar 10, 2017. Subjective Pt evaluation today including: conversation w/ patient PO Intake: vargas diet Voiding: no voiding problems Pt feels tired, but overall much improved than yesterday. Is frustrated that he is still a bit confused at times. Otherwise denies [place]/CP/SOB, no Abd pain. BCxs growing GNR in both sets, Ur cx negative. Pt denies cough but does feel a little SOB Remains in A-flutter , rate controlled on tele All Other Systems: Reviewed and Negative Objective Vital Signs Date Time Temp Pulse Resp B/P (MAP) Pulse Ox O2 Delivery O2 Flow Rate FiO2 03/10/17 20:00 99 Nasal Cannula 03/10/17 19:30 36.7 67 20 117/69 (85) 99 Nasal Cannula 2.0 03/10/17 16:00 Nasal Cannula 2.0 03/10/17 15:48 36.5 64 20 131/75 (93) 100 Nasal Cannula 2.0 03/10/17 12:00 Nasal Cannula 2.0 03/10/17 11:39 36.6 63 19 105/63 (77) 97 Nasal Cannula 2.0 03/10/17 08:00 Nasal Cannula 2.0 03/10/17 07:46 37.0 59 20 114/51 (72) 92 Nasal Cannula 3.0 03/10/17 04:00 Nasal Cannula 2.0 03/10/17 03:14 37.6 71 19 97/55 (69) 97 Nasal Cannula 2.0 03/10/17 00:00 Nasal Cannula 2.0 03/09/17 23:04 36.9 81 19 124/70 (88) 96 Nasal Cannula 2.0 Physical Exam General Appearance: WD/WN, no apparent distress Eyes: normal inspection, sclerae normal ENT: hearing grossly normal Neck: trachea midline Respiratory/Chest: no respiratory distress, no accessory muscle use, + crackles (at bases bilat) Cardiovascular: no murmur, + irregularly irregular (with normal rate) Abdomen: normal bowel sounds, non tender, soft, + hernia (ventral incisional hernia midline, reducible, nontender), + pertinent finding (large abdominal midline laparotomy scar with what appear to be scars from wound that healed by secondary intention) Extremities: no calf tenderness, + swelling (trace pitting edema on right leg, left leg with scar from saphenous vein harvest and then +erythema and warmth, with significant induration and exquisite tenderness left medial leg and posterior leg) Neurologic/Psychiatric: alert, normal mood/affect, oriented x 3 Skin: warm/dry, no rash, + pertinent finding (leg as above, also with large midline sternotomy scar that is wider than usual) Laboratory Results Last 24 Hours Test 03/10/17 06:18 White Blood Count 16.76 K/uL Red Blood Count 4.78 M/uL Hemoglobin 15.1 g/dL Hematocrit 44.9 % Mean Corpuscular Volume 93.9 fL Mean Corpuscular Hemoglobin 31.6 pg Mean Corpuscular Hemoglobin Concent 33.6 g/dl RDW Standard Deviation 47.7 fL RDW Coefficient of Variation 13.8 % Platelet Count 154 K/uL Mean Platelet Volume 9.8 fL Prothrombin Time 37.3 SECONDS Prothromb Time International Ratio 3.3 Sodium Level 145 mmol/L Potassium Level 4.3 mmol/L Chloride Level 114 mmol/L Carbon Dioxide Level 24 mmol/L Anion Gap 7.0 mmol/L Blood Urea Nitrogen 25 mg/dl Creatinine 1.20 mg/dl Est Creatinine Clear Calc Drug Dose 51.0 ml/min Estimated GFR () 63.1 Estimated GFR (Non- 54.4 BUN/Creatinine Ratio 20.7 Random Glucose 85 mg/dl Calcium Level 7.7 mg/dl Total Bilirubin 1.5 mg/dl Aspartate Amino Transf (AST/SGOT) 31 U/L Alanine Aminotransferase (ALT/SGPT) 19 U/L Alkaline Phosphatase 49 U/L Total Protein 4.4 gm/dl Albumin 1.9 gm/dl Globulin 2.5 gm/dl Albumin/Globulin Ratio 0.8 Assessment and Plan Pt is an 87 y/o M who was admitted on 03/09 with altered mental status after being found in home with oven on with door open, wrapped in coats, electric heater on, and heat on in house, likely with chills at home. Found to have bilateral LL PNA, sepsis on admission as well as left leg cellulitis; now also with GNR bacteremia. Acute metabolic encephalopathy, Bilat lower lobe PNA/CAP, Left leg cellulitis, GNR bacteremia, GNR Sepsis--> source likely from PNA for GNR. UA normal, Ur cx no growth. No abd pain at all. CT head negative PNA is likely source given CXR and hypoxic on RA on presentation WBC elevated, febrile--> all improved now except WBC stable from previous Started on vanco/zosyn in the ED, then switched to levaquin to cover for PNA and cellulitis Follow final ID and sensitivities for GNR bactermia -repeat BCs now to ensure clearing -Consult ID for GNR bacteremia, PNA, cellulitis which may be a separate infection--> appreciate recommendations for abx choice to fiordaliza for both as Levaquin not always the best for skin/soft tissue infections but can work LE cellulitis: levaquin will cover as baove but appreciate ID recommendations, consider adding on Vanc as well but no h/o MRSA US neg for DVT and is therapeutic on coumadin Toe nails are in need of attention-sees Podiatry as outpt but not in several months Acute hypoxemic respiratory failure-not on O2 at home, likely related to PNA -wean O2 off as able to -repeat CXR in AM HTN: BP is stable, home meds held on admission Restart Coreg in AM -add valsartan, lasix back on after sepsis completely resolved and renal function ok Chronic diastolic CHF/Severe LVH: lasix held on admission for need for IVFs and elevated lactate Monitor fluid resuscitation given this hx -will stop IVFs in AM and likely restart lasix in AM -restart valsartan tomorrow if BP ok after restarting Coreg CAD s/p CABG and MVR:stable, no current issues, trop neg on admission, ECG no ischemic changes - continue plavix, is allergic to ASA -continue statin, Coreg Aflutter: rate controlled -restart Coreg in AM -continue coumadin but holding for INR 3.3 today -follow PT/INR GERD-stable -continue PPI BPH-no issues -observe Combivent use: Daughter declines known COPD/asthma dx States several inhalers were started on prior admission, will continue given PNA Full code per daughter, although she states pt has a living will and would not want prolonged life support or feeding tubes Proph- on coumadin for DVT proph, PPI for stress ulcer proph
[2017-03-11] VITALS (9 sets, daily range): BP systolic 116–147; BP diastolic 73–81; PULSE 61–82; TEMP 36.4–36.7; O2SAT 94–97
[2017-03-11 05:09] LABS: HEMATOCRIT 39.9 % (42-52); MEAN CELL VOLUME 93.4 fL (80-100); MEAN CORPUSCULAR HEMOGLOBIN 31.6 pg (25-34); MEAN CORPUSCULAR HGB CONC 33.8 g/dl (32-36); MEAN PLATELET VOLUME 9.7 fL (7.4-10.4); PLATELET COUNT 154 K/uL (130-400); RED BLOOD COUNT 4.27 M/uL (4.7-6.1); WHITE BLOOD COUNT 11.62 K/uL (4.8-10.8)
[2017-03-11 05:34] LABS: INR 2.3 (0.9-1.1); PROTHROMBIN TIME (PATIENT) 25.2 SECONDS (9.0-12.0)
[2017-03-11 05:36] LABS: BUN/CREATININE RATIO 27.2 (10-20); CALCIUM 7.6 mg/dl (8.5-10.1); POTASSIUM 4.2 mmol/L (3.5-5.1)
[2017-03-11] MEDS: SODIUM CHLORIDE 0.9% 1000ML 1,000 ML IV SCH (05:42)
[2017-03-11 05:44] LABS: ALB/GLOB RATIO 0.6 (0.9-2)
[2017-03-11] MEDS: PANTOprazole SOD 40 MG TAB PO SCH (07:40)
[2017-03-11] MEDS: CLOPIDOGREL BISULFATE 75 MG TAB PO SCH (07:40)
[2017-03-11] MEDS: CARVEDILOL 12.5 MG TAB PO SCH ×2 (07:40→19:59)
[2017-03-11] MEDS: IPRATROPIUM BROMIDE/ALBUTEROL respimat INH INH SCH ×4 (07:42→20:00)
--- NOTE | 2017-03-11 08:19 | DIAGNOSTIC IMAGING REPORT ---
TWO VIEW CHEST CLINICAL HISTORY: Pleural effusions. Pneumonia. FINDINGS: PA and lateral chest radiographs are compared to study dated 03/09/2017. The heart is enlarged and there is atherosclerotic calcification of the thoracic aorta. There is evidence of previous mitral valve surgery. Enlargement of the pulmonary trunk is similar to previous. The pulmonary vasculature is noncongested. There are small pleural effusions with bibasilar consolidation. Chronic interstitial thickening is unchanged. There is no pneumothorax. The skeletal structures are osteopenic. Degenerative change is noted throughout the thoracic spine and in the shoulders. IMPRESSION: 1. Cardiomegaly without radiographic evidence of congestive failure. 2. There are small pleural effusions with bibasilar consolidation. This could represent atelectasis versus pneumonia. Local correlation will be required Electronically signed by: Niranjan Bennett M.D. 03/11/2017 8:18 AM Dictated Date/Time: 03/11/2017 8:17 AM
--- NOTE | 2017-03-11 10:10 | Progress Note ---
Progress Note Date of Service Mar 11, 2017. Progress Note ID Consult Dictated #[id number] A/P: 1. GNR sepsis 2.Leukocytosis -Continue levaquin for now, clinically improving -Follow blood cultures, further recs based on final results -Repeat cultures pending -Will follow, thank you
--- NOTE | 2017-03-11 10:53 | INFECT. DISEASE CONSULTATION ---
DATE OF CONSULTATION: 03/11/2017 REQUESTING PHYSICIAN: Nancy Canada MD. HISTORY OF PRESENT ILLNESS: This is an 87-year-old gentleman who was brought to the hospital by EMS after he was found by his family to be lethargic with acute change in mental status. He does not remember coming into the hospital. He states on the day of admission he was at home and felt cold. He turned his furnace up and was wearing multiple layers of clothes and had shaking chills. He states that he became weak and laid down on the couch and does not remember anything from that point. He was found by his family and brought to the hospital by EMS. He did have a fever of 38.9 in the ER, he was started on broad spectrum antibiotics and blood cultures were obtained. His initial blood cultures are growing gram negative rods which are yet to be identified. Repeat blood cultures are pending at this time. His flu swab was negative. Urinalysis and urine culture are negative. He did have a white blood cell count of 16.7 on arrival to the hospital. This has improved to 11. Overnight, his T-max was 37.6. Today, he states he is feeling significantly better. He denies any fevers or chills. He denies any shaking chills. He denies any arthralgias or myalgias. He has no cough, chest pain or shortness of breath. He is using oxygen currently. He did have an x-ray in the ER which showed bilateral opacities which could be infection or atelectasis. He is tolerating antibiotics well. He denies any nausea, vomiting or diarrhea. He denies any loss of appetite prior to coming to the hospital. He denies any lacerations or open wounds. His remaining review of systems were reviewed and are unremarkable. PAST MEDICAL HISTORY: Significant for CHF, hypertension and mitral valve disorder. PAST SURGICAL HISTORY: Unremarkable. He also has GERD and a flutter for which he is on anticoagulation. FAMILY HISTORY: Noncontributory. SOCIAL HISTORY: Significant for remote history of tobacco use. He denies any drug or alcohol use. He lives alone. He denies any sick contacts recently. ALLERGIES: INCLUDE ASPIRIN, LISINOPRIL AND SULFA. CURRENT MEDICATIONS: Include Coreg, Plavix, Protonix, Lipitor, Combivent, levofloxacin, Nitrostat, Tylenol, milk of magnesia and Zofran. PHYSICAL EXAMINATION: VITAL SIGNS: He is afebrile currently, his T-max is 37.6, pulse 77, respiratory rate is 20, blood pressure is 132/81, oxygen saturation is 94-97% on 2 liters nasal cannula. GENERAL: He is awake, alert and oriented on my exam, he is in no acute distress. HEENT: Mucous membranes are moist. Extraocular muscles are intact. HEART: Regular. LUNGS: Clear bilaterally. There is no wheezing. ABDOMEN: Soft, nontender, nondistended. There is no lower extremity edema. SKIN: Without rash. LABORATORY STUDIES: CBC today reveals a white blood cell count of 11.2 down from 16.7 yesterday, hemoglobin 13.5, platelets 154. Chemistry panel: Sodium 144, potassium 4.2, chloride 113, bicarbonate 27, BUN 27, creatinine 1.0, glucose is 92. Lactic acid done on admission was 2.1. LFTs are within normal limits. Lipase was normal. Urinalysis was unremarkable. Flu swab was negative. Blood cultures from the 7th are growing gram negative rods in 2/2 sets. ID is pending. Repeat blood cultures from the 8th are pending as well. Urine culture on the 7th is negative. Chest x-ray done this morning shows no evidence of CHF, bibasilar consolidation, atelectasis versus pneumonia. Lower extremity ultrasound was done in the ER and was negative. ASSESSMENT AND PLAN: Gram negative sepsis, questionable pulmonary source. He will remain on Levaquin as he does appear to have clinical improvement. His repeat blood cultures are pending. We will await his final ID and sensitivities and make further recommendations at that time. Thank you for this consultation.
[2017-03-11] MEDS ORDERED: WARFARIN SOD 5 MG TAB PO SCH ×2 (16:00→17:00)
[2017-03-11] MEDS: LEVOFLOXACIN / D5W 750 MG in PREMIXED IN D5W 150 ML IV SCH (17:47)
[2017-03-11] MEDS: ATORVASTATIN 40 MG TAB PO SCH (19:59)
--- NOTE | 2017-03-11 20:05 | Family Medicine Progress Note ---
Progress Note Date of Service Mar 11, 2017. Subjective Pt evaluation today including: conversation w/ patient, physical exam, chart review, lab review Voiding: no voiding problems Pt resting comfortably in bed, reading. Reports breathing improved. No events overnight. Constitutional: No chills Respiratory: + cough Cardiovascular: No chest pain, No palpitations Abdomen: No pain, No nausea Objective Vital Signs Date Time Temp Pulse Resp B/P (MAP) Pulse Ox O2 Delivery O2 Flow Rate FiO2 03/11/17 20:00 Room Air 03/11/17 19:21 36.6 65 18 147/75 (99) 94 Room Air 03/11/17 16:00 Room Air 03/11/17 15:25 36.4 61 18 125/73 (90) 97 Room Air 03/11/17 12:00 Room Air 03/11/17 11:05 97 03/11/17 10:44 36.5 68 20 135/78 (97) 96 03/11/17 08:56 36.5 77 20 132/81 (98) 94 Room Air 03/11/17 08:00 Nasal Cannula 03/11/17 08:00 Nasal Cannula 2.0 03/11/17 04:00 97 Nasal Cannula 03/11/17 03:10 36.7 82 20 116/80 (92) 97 Nasal Cannula 2.0 03/11/17 00:00 96 Nasal Cannula 03/10/17 23:02 36.7 82 19 132/80 (97) 96 Nasal Cannula 2.0 Physical Exam General Appearance: WD/WN, no apparent distress Eyes: normal inspection, EOMI Respiratory/Chest: no respiratory distress, no accessory muscle use, + wheezing Cardiovascular: regular rate, rhythm, no gallop, no JVD Abdomen: normal bowel sounds, soft Skin: normal color, + pertinent finding (LLE erythema noted, moderate) Assessment and Plan 87M admitted on 03/09 with altered mental status after being found in home with oven on with door open, wrapped in coats, electric heater on, and heat on in house, likely with chills at home. Found to have b/l LL pneumonia, sepsis, altered mental status, acute respiratory failure. PMH of CHF, h/o PNA, ARF, HTN , CAD s/p MVR. Pt lives alone, former smoker (quit in his 40s). CT head: wnl CXR: evidence of PNA or atelectasis UA: neg Influenza pcr: neg ECG: PVCs, wnl. Acute hypoxemic respiratory failure Found to have bilateral LL PNA Leukocytosis trending down. Fever resolved. On Levaquin IV. Wean off O2 as able. Not on O2 at home. Combivent use: Daughter declines known COPD/asthma dx. States several inhalers were started on prior admission--> will continue given PNA Acute metabolic encephalopathy Resolved, AOx3. Likely 2/2 early sepsis, pneumonia likely source Started vanc/zosyn in ED, now on Levaquin IV. Bacteremia, GNR Repeat blood cx pending On levaquin IV LE Cellulitis LLE venous US wnl, therapeutic on coumadin. No h/o MRSA. Levaquin covering adequately, improving. Will require 14 day course. Recommend f/u with podiatry for attention to toenails needed. HTN Controlled, restarted coreg, BP stable. Restart valsartan. CHF Lasix held on admission for need for IVFs and elevated lactate Monitor fluid resuscitation given this hx Restarting home lasix tomorrow AM. Valsartan as above. CAD s/p CABG and MVR:stable, no current issues, trop neg on admission, ECG no ischemic changes Continue plavix, is allergic to ASA Continue statin, Coreg Aflutter: rate controlled; PVC's noted on Tele. Asymptomatic. Continue coreg. Restarted Coreg. Continue coumadin (held for INR 3.3 yesterday) Follow PT/INR Dispo: per PT/OT, may require inpatient rehab post DC. Code status: Full code per daughter, although she states pt has a living will and would not want prolonged life support or feeding tubes PPX: on coumadin for DVT proph, PPI for stress ulcer proph Continued [facility] stay due to: abnormal vital signs, multiple IV medications needed Discharge planning: home with home health Resident Tracking Resident Involvement: Resident Care Provided Care Provided: Adult Hospital Medicine Reviewed: Pt Seen/Exam by Me History Resident Physician Supervision Note: I interviewed and examined the patient. Discussed with Dr. Tran and agree with findings and plan as documented in the note. Any exceptions or clarifications are listed here: Pt feeling better but still SOB with minimal exertion although RN reports he was OOB to bathroom and did well. Physical Exam Vitals and tele reviewed-had 5 beats of likely multifocal PVCs,otherwise A- flutter rate controlled General Appearance: WD/WN, no apparent distress Eyes: normal inspection, sclerae normal ENT: hearing grossly normal Neck: trachea midline Respiratory/Chest: no respiratory distress, no accessory muscle use, + crackles (at bases bilat, but improved from previous) Cardiovascular: no murmur, + irregularly irregular (with normal rate) Abdomen: normal bowel sounds, non tender, soft, + hernia (ventral incisional hernia midline, reducible, nontender), + pertinent finding (large abdominal midline laparotomy scar with what appear to be scars from wound that healed by secondary intention) Extremities: no calf tenderness, + swelling (trace pitting edema on right leg, left leg with scar from saphenous vein harvest and then +erythema and warmth, with significant induration and exquisite tenderness left medial leg and posterior leg) Neurologic/Psychiatric: alert, normal mood/affect, oriented x 3 Skin: warm/dry, no rash, + pertinent finding (leg as above, also with large midline sternotomy scar that is wider than usual) Pt is an 87 y/o M who was admitted on 03/09 with altered mental status after being found in home with oven on with door open, wrapped in coats, electric heater on, and heat on in house, likely with chills at home. Found to have bilateral LL PNA, sepsis on admission as well as left leg cellulitis; now also with GNR bacteremia. Acute metabolic encephalopathy, Bilat lower lobe PNA/CAP, Left leg cellulitis, GNR bacteremia, GNR Sepsis--> source likely from PNA for GNR. UA normal, Ur cx no growth. No abd pain at all. CT head negative PNA is likely source given CXR and hypoxic on RA on presentation WBC elevated, febrile--> all improved now Started on vanco/zosyn in the ED, then switched to levaquin to cover for PNA and cellulitis Follow final ID and sensitivities for GNR bactermia -repeated BCs now to ensure clearing -Consult ID for GNR bacteremia, PNA, cellulitis which may be a separate infection--> appreciate recommendations to continue current regimen LE cellulitis: levaquin will cover as above but appreciate ID recommendations, consider adding on Vanc as well but no h/o MRSA US neg for DVT and is therapeutic on coumadin Toe nails are in need of attention-sees Podiatry as outpt but not in several months Acute hypoxemic respiratory failure-not on O2 at home, likely related to PNA, now resolved at least at rest. Repeat CXR improved --follow CXR to resolution -2 step prior to dc if still dyspneic on exertion HTN: BP is stable, home meds held on admission Restarted Coreg, start valsartan and lasix in AM Chronic diastolic CHF/Severe LVH: lasix held on admission for need for IVFs and elevated lactate Monitor fluid resuscitation given this hx dc IVFs and restart lasix in AM -restart valsartan tomorrow CAD s/p CABG and MVR:stable, no current issues, trop neg on admission, ECG no ischemic changes - continue plavix, is allergic to ASA -continue statin, Coreg Aflutter: rate controlled -restarted Coreg -restart coumadin as INR 2.3 -follow PT/INR GERD-stable -continue PPI BPH-no issues -observe Combivent use: Daughter declines known COPD/asthma dx States several inhalers were started on prior admission, will continue given PNA Full code per daughter, although she states pt has a living will and would not want prolonged life support or feeding tubes Proph- on coumadin for DVT proph, PPI for stress ulcer proph Dispo-likely will need SNF in 1-2 days Documented By: Nancy Canada
[2017-03-12] VITALS (8 sets, daily range): BP systolic 117–151; BP diastolic 67–88; PULSE 61–70; TEMP 36.3–36.8; O2SAT 93–97
[2017-03-12 05:45] LABS: HEMATOCRIT 41.1 % (42-52); MEAN CELL VOLUME 93.2 fL (80-100); MEAN CORPUSCULAR HEMOGLOBIN 32.2 pg (25-34); MEAN CORPUSCULAR HGB CONC 34.5 g/dl (32-36); MEAN PLATELET VOLUME 9.7 fL (7.4-10.4); PLATELET COUNT 156 K/uL (130-400); RED BLOOD COUNT 4.41 M/uL (4.7-6.1); WHITE BLOOD COUNT 7.79 K/uL (4.8-10.8)
[2017-03-12 05:58] LABS: INR 1.9 (0.9-1.1); PROTHROMBIN TIME (PATIENT) 20.7 SECONDS (9.0-12.0)
[2017-03-12 06:17] LABS: CALCIUM 7.7 mg/dl (8.5-10.1); CREATININE 0.78 mg/dl (0.60-1.40); POTASSIUM 4.2 mmol/L (3.5-5.1)
[2017-03-12 06:20] LABS: ALB/GLOB RATIO 0.6 (0.9-2)
[2017-03-12] MEDS: PANTOprazole SOD 40 MG TAB PO SCH (08:11)
[2017-03-12] MEDS: FUROSEMIDE 40 MG TAB PO SCH (08:11)
[2017-03-12] MEDS: VALSARTAN 80 MG TAB PO SCH (08:11)
[2017-03-12] MEDS: CARVEDILOL 12.5 MG TAB PO SCH ×2 (08:11→19:20)
[2017-03-12] MEDS: CLOPIDOGREL BISULFATE 75 MG TAB PO SCH (08:11)
[2017-03-12] MEDS: IPRATROPIUM BROMIDE/ALBUTEROL respimat INH INH SCH ×4 (08:16→19:19)
--- NOTE | 2017-03-12 10:36 | Family Medicine Progress Note ---
Progress Note Date of Service Mar 12, 2017. Subjective Pt evaluation today including: conversation w/ patient, physical exam, chart review, lab review, review of studies Pt reports his breathing is worse today than yesterday. Also was unable to go to sleep after morning labs, is tired. Pt also reports subjective darkening of urine which he calls red. Per nurse, urine was mert in color, no blood visualized. Otherwise denies chest pain, palpitations or lightheadedness. Respiratory: + cough, + wheezing, + dyspnea at rest, No sputum Cardiovascular: No chest pain, No orthopnea Abdomen: No pain Objective Vital Signs Date Time Temp Pulse Resp B/P (MAP) Pulse Ox O2 Delivery O2 Flow Rate FiO2 03/12/17 20:00 Room Air 03/12/17 18:59 36.4 65 20 137/86 (103) 94 Room Air 03/12/17 16:00 95 Room Air 03/12/17 15:20 36.3 61 18 124/73 (90) 97 Room Air 03/12/17 12:00 Nasal Cannula 2.0 03/12/17 11:47 36.8 68 18 130/67 (88) 96 03/12/17 08:00 95 Nasal Cannula 2.0 03/12/17 07:17 36.5 70 20 151/88 (109) 95 Room Air 03/12/17 04:00 Room Air 03/12/17 03:45 36.5 63 22 129/82 (98) 93 Room Air 03/12/17 00:00 Room Air 03/11/17 23:41 36.5 63 20 135/81 (99) 97 Room Air Physical Exam General Appearance: WD/WN, no apparent distress Respiratory/Chest: lungs clear, normal breath sounds, + accessory muscle use Cardiovascular: regular rate, rhythm, no gallop, no JVD Abdomen: normal bowel sounds, soft Extremities: normal range of motion, non-tender, + pertinent finding (erythema and warmth LE, moderate) Neurologic/Psychiatric: alert, normal mood/affect, oriented x 3 Skin: + pertinent finding (2+ edema in LE b/l. Erythema, warmth mild.) Assessment and Plan 87M admitted on 03/09 with altered mental status after being found in home with oven on with door open, wrapped in coats, electric heater on, and heat on in house, likely with chills at home. Found to have b/l LL pneumonia, sepsis, altered mental status, acute respiratory failure. PMH of CHF, h/o PNA, ARF, HTN , CAD s/p MVR. Pt lives alone, former smoker (quit in his 40s). Initially: CT head: wnl CXR: evidence of PNA or atelectasis UA: neg Influenza pcr: neg ECG: PVCs, wnl. Today: Blood cx grows Pseudomonas x2. Acute hypoxemic respiratory failure Found to have bilateral LL PNA Leukocytosis resolved. Fever resolved. On Levaquin IV - switching to PO today. Wean off O2 as able. Not on O2 at home. Combivent use: Continue on dc. (Daughter declines known COPD/asthma dx. States several inhalers were started on prior admission--> will continue given PNA). Acute metabolic encephalopathy Resolved, AOx3. Likely 2/2 early sepsis, pneumonia likely source Started vanc/zosyn in ED, now on Levaquin IV. Switching to Levaquin PO, as above. Bacteremia, GNR Repeat blood cx grows pseudomonas x2. Pansensitive. On levaquin PO. LE Cellulitis LLE venous US wnl, therapeutic on coumadin. No h/o MRSA. Levaquin covering adequately for now, improving. Will require 14 day course. Recommend f/u with podiatry for attention to toenails needed. HTN Controlled, restarted coreg, BP stable. Restart valsartan. CHF Lasix held on admission for need for IVFs and elevated lactate- restarting home lasix today, will look for improvement in breathing. Monitor fluid resuscitation given this hx Valsartan as above. Mild elevation in LFT's noted today (AST 40 from 38, ALT 25 from 20). Likely 2/ 2 hepatic congestion from fluid overload - will monitor after lasix adm. CAD s/p CABG and MVR:stable, no current issues, trop neg on admission, ECG no ischemic changes Continue plavix, is allergic to ASA Continue statin, Coreg Aflutter: rate controlled; PVC's noted on Tele. Asymptomatic. Continue coreg. Continue coumadin (held for INR 3.3 yesterday) INR 1.9 today. Given one dose Lovenox this PM. Will follow PT/INR, may not need bridge for DC. Subjective dark urine, ruled out hematuria Per pt, says urine was "bloody" this AM. Per nurse, was dark mert. Ordered UA, came back negative. Likely darkened due to fluid status. Dispo: per PT/OT, may require inpatient rehab post DC. Code status: Full code per daughter, although she states pt has a living will and would not want prolonged life support or feeding tubes PPX: on coumadin for DVT proph, Lovenox bridge starting 03/12 at 1800. PPI for stress ulcer proph Continued [facility] stay due to: abnormal vital signs, multiple IV medications needed Discharge planning: home with home health Continued [facility] stay due to: multiple IV medications needed Discharge planning: home with home health Resident Tracking Resident Involvement: Resident Care Provided Care Provided: Adult Hospital Medicine Reviewed: Pt Seen/Exam by Me History Resident Physician Supervision Note: I interviewed and examined the patient. Discussed with Dr. Tran and agree with findings and plan as documented in the note. Any exceptions or clarifications are listed here: Pt reports feeling very SOB. Remains afebrile, is coughing up some sputum Physical Exam Vitals and tele reviewed- A-flutter rate controlled General Appearance: WD/WN, no apparent distress Eyes: normal inspection, sclerae normal ENT: hearing grossly normal Neck: trachea midline Respiratory/Chest: no respiratory distress, no accessory muscle use, +mild crackles at bases bilat Cardiovascular: no murmur, + irregularly irregular (with normal rate) Abdomen: normal bowel sounds, non tender, soft, + hernia (ventral incisional hernia midline, reducible, nontender), + pertinent finding (large abdominal midline laparotomy scar with what appear to be scars from wound that healed by secondary intention) Extremities: no calf tenderness, + swelling (1+pitting edema bilateral Legs, left leg with scar from saphenous vein harvest and then mild residual +erythema and warmth, with less induration and now only mild tenderness left medial leg and posterior leg-overall improvement of cellulitis) Neurologic/Psychiatric: alert, normal mood/affect, oriented x 3 Skin: warm/dry, no rash, + pertinent finding (leg as above, also with large midline sternotomy scar that is wider than usual) Pt is an 87 y/o M who was admitted on 03/09 with altered mental status after being found in home with oven on with door open, wrapped in coats, electric heater on, and heat on in house, likely with chills at home. Found to have bilateral LL PNA, sepsis on admission as well as left leg cellulitis; now also with GNR bacteremia. Acute metabolic encephalopathy, Bilat lower lobe PNA/CAP, Left leg cellulitis, Pseudomonas bacteremia, GNR Sepsis--> source likely from PNA vs lower extremity cellulitis for Pseudomonas. UA normal, Ur cx no growth. No abd pain at all. CT head negative. US neg for DVT and was therapeutic on coumadin on admission No further WBC count, remains afebrile, much improved Started on vanco/zosyn in the ED, then switched to levaquin to cover for PNA and cellulitis--> Pseudomonas sensitive to FQ--> complete 14 days total Levaqion po from repeay negative BCxs (03/10) -follow repeat BCs to ensure clearing- NGTD -Consult ID > appreciate recommendations to continue current regimen Toe nails are in need of attention-fu Podiatry as outpt Acute hypoxemic respiratory failure-not on O2 at home, likely related to PNA, but also some now due to pulm edema. Repeat CXR improved, but pt continues to feel quite dyspneic with minimal exertion, feels better on O2 --follow CXR to resolution -continue supplemental O2 -restarted lasix today for diuresis HTN: BP is stable, home meds held on admission initially for hypotension continue Coreg, valsartan and lasix in AM Acute on Chronic diastolic CHF/Severe LVH: lasix held on admission for need for IVFs and elevated lactate, now with pulm edema and continued O2 requirement -restarted po lasix -watch I/Os, daily weights, low Na+ diet CAD s/p CABG and MVR:stable, no current issues, trop neg on admission, ECG no ischemic changes - continue plavix, is allergic to ASA -continue statin, Coreg Aflutter: rate controlled -continue Coreg -continue coumadin --> INR 1.9, bridge temporarily with Lovenox till INR therapeutic again -follow PT/INR GERD-stable -continue PPI BPH-no issues -observe Combivent use: Daughter declines known COPD/asthma dx States several inhalers were started on prior admission, will continue given PNA Full code per daughter, although she states pt has a living will and would not want prolonged life support or feeding tubes Proph- on coumadin for DVT proph, PPI for stress ulcer proph Dispo-no bed available at [facility] today, awaiting placement elsewhere Documented By: Nancy Canada
--- NOTE | 2017-03-12 13:15 | DIAGNOSTIC IMAGING REPORT ---
CHEST 2 VIEWS ROUTINE HISTORY: dyspnea COMPARISON: None. FINDINGS: The heart remains mildly enlarged. Small bilateral pleural effusions persist. No pneumothorax. Left basilar linear densities favor subsegmental atelectasis. This remains unchanged. Mild pulmonary vascular congestion persist. IMPRESSION: No change in the mild pulmonary vascular congestion and small bilateral pleural effusions. Electronically signed by: Sánchez Licea M.D. 03/12/2017 1:14 PM Dictated Date/Time: 03/12/2017 1:10 PM
[2017-03-12] MEDS: BOOST PLUS VANILLA PO SCH ×2 (13:24)
[2017-03-12 13:38] LABS: URINE APPEARANCE CLEAR (CLEAR); URINE BILIRUBIN NEG (NEG); URINE COLOR YELLOW; URINE EPITHELIAL CELL AUTO 0-5 /lpf (0-5); URINE NITRITE NEG (NEG); URINE SPECIFIC GRAVITY 1.018 (1.000-1.030); UROBILINOGEN NEG (NEG)
[2017-03-12 13:45] LABS: MANUAL MICROSCOPIC REQUIRED? NO; REVIEW REQ? NO
--- NOTE | 2017-03-12 15:15 | Progress Note ---
Subjective Date of Service: Mar 12, 2017. Subjective Pt evaluation today including: conversation w/ patient, conversation w/ family , physical exam, chart review, lab review pt feeling better today had some sob and cough with yellow sputum this am, now better. no f/c. no sob currently no cp, eating well. no n/v/d. abx changed to po. All remaining ros reviewed and are negative. Problem List Medical Problems: (1) Abnormal EKG Status: Acute (2) COPD exacerbation Status: Acute (3) Dermatitis Status: Acute (4) Hypoxia Status: Acute (5) Hypoxia Status: Acute (6) Hypoxia Status: Acute (7) Pneumonia Status: Acute (8) Pulmonary edema Status: Acute (9) Pulmonary edema Status: Acute (10) Respiratory distress Status: Acute (11) Sepsis Status: Acute (12) Shortness of breath Status: Acute (13) SOB (shortness of breath) Status: Acute (14) Supratherapeutic INR Status: Acute (15) Weakness generalized Status: Acute Objective Vital Signs Date Time Temp Pulse Resp B/P (MAP) Pulse Ox O2 Delivery O2 Flow Rate FiO2 03/12/17 12:00 Nasal Cannula 2.0 03/12/17 11:47 36.8 68 18 130/67 (88) 96 03/12/17 08:00 95 Nasal Cannula 2.0 03/12/17 07:17 36.5 70 20 151/88 (109) 95 Room Air 03/12/17 04:00 Room Air 03/12/17 03:45 36.5 63 22 129/82 (98) 93 Room Air 03/12/17 00:00 Room Air 03/11/17 23:41 36.5 63 20 135/81 (99) 97 Room Air 03/11/17 20:00 Room Air 03/11/17 19:21 36.6 65 18 147/75 (99) 94 Room Air 03/11/17 16:00 Room Air 03/11/17 15:25 36.4 61 18 125/73 (90) 97 Room Air Physical Exam General Appearance: WD/WN, no apparent distress Eyes: normal inspection, EOMI Neck: supple Respiratory/Chest: lungs clear, normal breath sounds, no respiratory distress Cardiovascular: regular rate, rhythm, no edema Abdomen: soft Extremities: non-tender, no pedal edema Neurologic/Psychiatric: alert, oriented x 3 Skin: normal color Laboratory Results Item Value Date Time Blood Culture - Final Complete 03/09/17 1205 Blood Pseudomonas Aeruginosa Blood Culture - Final Complete 03/09/17 1308 Blood Pseudomonas Aeruginosa Blood Culture - Preliminary Resulted 03/10/17 1848 Blood NO GROWTH TO DATE. Blood Culture - Preliminary Resulted 03/10/17 1859 Blood NO GROWTH TO DATE. Last 24 Hours Test 03/12/17 05:21 03/12/17 13:00 White Blood Count 7.79 K/uL Red Blood Count 4.41 M/uL Hemoglobin 14.2 g/dL Hematocrit 41.1 % Mean Corpuscular Volume 93.2 fL Mean Corpuscular Hemoglobin 32.2 pg Mean Corpuscular Hemoglobin Concent 34.5 g/dl RDW Standard Deviation 47.6 fL RDW Coefficient of Variation 13.9 % Platelet Count 156 K/uL Mean Platelet Volume 9.7 fL Prothrombin Time 20.7 SECONDS Prothromb Time International Ratio 1.9 Sodium Level 143 mmol/L Potassium Level 4.2 mmol/L Chloride Level 114 mmol/L Carbon Dioxide Level 23 mmol/L Anion Gap 6.0 mmol/L Blood Urea Nitrogen 22 mg/dl Creatinine 0.78 mg/dl Est Creatinine Clear Calc Drug Dose 79.6 ml/min Estimated GFR () 94.7 Estimated GFR (Non- 81.7 BUN/Creatinine Ratio 28.0 Random Glucose 92 mg/dl Calcium Level 7.7 mg/dl Total Bilirubin 0.8 mg/dl Aspartate Amino Transf (AST/SGOT) 40 U/L Alanine Aminotransferase (ALT/SGPT) 25 U/L Alkaline Phosphatase 78 U/L Total Protein 5.0 gm/dl Albumin 1.8 gm/dl Globulin 3.2 gm/dl Albumin/Globulin Ratio 0.6 Urine Color YELLOW Urine Appearance CLEAR Urine pH 5.0 Urine Specific [place] 1.018 Urine Protein NEG Urine Glucose (UA) NEG Urine Ketones NEG Urine Occult Blood 1+ Urine Nitrite NEG Urine Bilirubin NEG Urine Urobilinogen NEG Urine Leukocyte Esterase NEG Urine WBC (Auto) 1-5 /hpf Urine RBC (Auto) 0-4 /hpf Urine Hyaline Casts (Auto) 1-5 /lpf Urine Epithelial Cells (Auto) 0-5 /lpf Urine Bacteria (Auto) NEG Assessment and Plan (1) Pseudomonas septicemia Assessment & Plan: repeat cultures negative, would continue levaquin po x 14 days from first negative blood cultures. Continued [facility] stay due to: multiple IV medications needed Discharge planning: home with home health
[2017-03-12] MEDS ORDERED: WARFARIN SOD 5 MG TAB PO SCH (16:00)
[2017-03-12] MEDS ORDERED: WARFARIN SOD 5 MG TAB PO ONE (16:00)
[2017-03-12] MEDS ORDERED: WARFARIN SOD 2.5 MG TAB PO SCH (16:00)
[2017-03-12] MEDS: LEVOFLOXACIN 750 MG TAB PO SCH (16:46)
[2017-03-12] MEDS ORDERED: ENOXAPARIN 1 MG/KG SQ SCH (18:00)
[2017-03-12] MEDS ORDERED: ENOXAPARIN 100 MG/1ML SYR SQ SCH (18:00)
[2017-03-12] MEDS: ATORVASTATIN 40 MG TAB PO SCH (19:20)
[2017-03-13] VITALS (10 sets, daily range): BP systolic 117–150; BP diastolic 68–84; PULSE 59–84; TEMP 36.4–37; O2SAT 93–98
[2017-03-13] MEDS ORDERED: ALBUT/IPRATROP 3MG/0.5MG NEB 3 ML VIAL INH PRN ×2 (01:00→11:30)
[2017-03-13 07:20] LABS: INR 2.8 (0.9-1.1); PROTHROMBIN TIME (PATIENT) 30.7 SECONDS (9.0-12.0)
[2017-03-13 07:45] LABS: BUN/CREATININE RATIO 22.2 (10-20); CREATININE 0.78 mg/dl (0.60-1.40); POTASSIUM 4.1 mmol/L (3.5-5.1)
[2017-03-13 07:48] LABS: ALB/GLOB RATIO 0.6 (0.9-2)
[2017-03-13] MEDS: FUROSEMIDE 40 MG TAB PO SCH (08:35)
[2017-03-13] MEDS: IPRATROPIUM BROMIDE/ALBUTEROL respimat INH INH SCH ×4 (08:35→19:48)
[2017-03-13] MEDS: VALSARTAN 80 MG TAB PO SCH (08:35)
[2017-03-13] MEDS: PANTOprazole SOD 40 MG TAB PO SCH (08:36)
[2017-03-13] MEDS: CARVEDILOL 12.5 MG TAB PO SCH ×2 (08:36→19:49)
[2017-03-13] MEDS: CLOPIDOGREL BISULFATE 75 MG TAB PO SCH (08:36)
[2017-03-13] MEDS: BOOST PLUS VANILLA PO SCH ×2 (08:41)
[2017-03-13] MEDS ORDERED: NURSING VERBAL MED ORDER ONE ×2 (11:30)
[2017-03-13] MEDS: ACETAMINOPHEN 325 MG TAB PO PRN ×2 (13:18→20:02)
[2017-03-13] MEDS ORDERED: WARFARIN SOD 5 MG TAB PO SCH (16:00)
[2017-03-13] MEDS: LEVOFLOXACIN 750 MG TAB PO SCH (16:17)
[2017-03-13] MEDS: ATORVASTATIN 40 MG TAB PO SCH (19:49)
--- NOTE | 2017-03-13 22:12 | Family Medicine Progress Note ---
Progress Note Date of Service Mar 13, 2017. Subjective Pt evaluation today including: conversation w/ patient, physical exam, chart review, lab review Voiding: no voiding problems Pt comfortable in bed, eating well. Does not c/o n/v, breathing improving. Motivated to go to rehab. Respiratory: + cough, No dyspnea on exertion Cardiovascular: No chest pain Abdomen: No pain Objective Physical Exam General Appearance: WD/WN, no apparent distress Eyes: normal inspection, EOMI Respiratory/Chest: no respiratory distress, + wheezing Cardiovascular: regular rate, rhythm, no edema, no gallop Abdomen: normal bowel sounds, non tender, soft Extremities: no pedal edema Assessment and Plan 87M admitted on 03/09 with altered mental status after being found in home with oven on with door open, wrapped in coats, electric heater on, and heat on in house, likely with chills at home. Found to have b/l LL pneumonia, sepsis, altered mental status, acute respiratory failure. PMH of CHF, h/o PNA, ARF, HTN , CAD s/p MVR. Pt lives alone, former smoker (quit in his 40s). Initially: CT head: wnl CXR: evidence of PNA or atelectasis UA: neg Influenza pcr: neg ECG: PVCs, wnl. Acute hypoxemic respiratory failure Found to have bilateral LL PNA Leukocytosis resolved. Fever resolved. On Levaquin PO. Will need script for supply to end on 03/22/17, per pulm Wean off O2 as able. Not on O2 at home. Combivent use: Continue on dc. (Daughter declines known COPD/asthma dx. States several inhalers were started on prior admission--> will continue given PNA). Acute metabolic encephalopathy Resolved, AOx3. Likely 2/2 early sepsis, pneumonia likely source Started vanc/zosyn in ED, now on Levaquin IV. Switching to Levaquin PO, as above. Bacteremia, GNR Repeat blood cx grows pseudomonas x2. Pansensitive. On levaquin PO. LE Cellulitis LLE venous US wnl, therapeutic on coumadin. No h/o MRSA. Levaquin covering adequately improving. Will require 14 day course. Recommend f/u with podiatry for attention to toenails needed. HTN Controlled, restarted coreg, BP stable. Restart valsartan. CHF Lasix held on admission for need for IVFs and elevated lactate- restarting home lasix today, will look for improvement in breathing. Monitor fluid resuscitation given this hx Valsartan as above. Mild elevation in LFT's noted today (AST 40 from 38, ALT 25 from 20). Likely 2/ 2 hepatic congestion from fluid overload - will monitor after lasix adm. CAD s/p CABG and MVR:stable, no current issues, trop neg on admission, ECG no ischemic changes Continue plavix, is allergic to ASA Continue statin, Coreg Aflutter: rate controlled; PVC's noted on Tele. Asymptomatic. Continue coreg. Continue coumadin (held for INR 3.3 yesterday) INR 2.8 today. (INR yesterday was 1.9, given one dose Lovenox.) Therapeutic. Subjective dark urine, ruled out hematuria Per pt, says urine was "bloody" this AM. Per nurse, was dark mert. Ordered UA, came back negative. Likely darkened due to fluid status. Dispo: per PT/OT, may require inpatient rehab post DC. Waiting on [facility] approval. Code status: Full code per daughter, although she states pt has a living will and would not want prolonged life support or feeding tubes PPX: on coumadin for DVT proph, PPI for stress ulcer proph Continued [facility] stay due to: abnormal vital signs Discharge planning: rehab hospital Resident Tracking Resident Involvement: Resident Care Provided Care Provided: Adult Hospital Medicine
[2017-03-14 03:32] VITALS: BP 134/77; PULSE 83; TEMP 36.8; O2SAT 96
[2017-03-14 04:00] VITALS: O2SAT 96
[2017-03-14 05:53] LABS: PROTHROMBIN TIME (PATIENT) 48.1 SECONDS (9.0-12.0)
[2017-03-14 05:54] LABS: INR 4.2 (0.9-1.1)
[2017-03-14 06:03] LABS: BUN/CREATININE RATIO 20.8 (10-20); CALCIUM 7.7 mg/dl (8.5-10.1); CREATININE 0.76 mg/dl (0.60-1.40); POTASSIUM 3.8 mmol/L (3.5-5.1)
[2017-03-14] MEDS: ACETAMINOPHEN 325 MG TAB PO PRN ×2 (06:04→15:46)
[2017-03-14 06:06] LABS: ALB/GLOB RATIO 0.6 (0.9-2)
[2017-03-14] MEDS: FUROSEMIDE 40 MG TAB PO SCH (07:32)
[2017-03-14] MEDS: IPRATROPIUM BROMIDE/ALBUTEROL respimat INH INH SCH ×2 (07:32→13:45)
[2017-03-14 07:33] VITALS: BP 138/81; PULSE 83; TEMP 36.7; O2SAT 95
[2017-03-14] MEDS: CLOPIDOGREL BISULFATE 75 MG TAB PO SCH (07:34)
[2017-03-14] MEDS: PANTOprazole SOD 40 MG TAB PO SCH (07:34)
[2017-03-14] MEDS: VALSARTAN 80 MG TAB PO SCH (07:34)
[2017-03-14] MEDS: CARVEDILOL 12.5 MG TAB PO SCH (07:35)
[2017-03-14] MEDS: BOOST PLUS VANILLA PO SCH ×2 (07:38)
[2017-03-14 08:57] LABS: HEMATOCRIT 40.8 % (42-52); MEAN CELL VOLUME 91.9 fL (80-100); MEAN CORPUSCULAR HGB CONC 34.8 g/dl (32-36); MEAN PLATELET VOLUME 9.5 fL (7.4-10.4); PLATELET COUNT 176 K/uL (130-400); RED BLOOD COUNT 4.44 M/uL (4.7-6.1); WHITE BLOOD COUNT 8.91 K/uL (4.8-10.8)
[2017-03-14 11:09] VITALS: BP 117/67; PULSE 95; TEMP 36.5; O2SAT 95
[2017-03-14] MEDS ORDERED: IPRA1AER2 INH (14:07)
[2017-03-14] MEDS ORDERED: LVQ750 PO (14:07)
--- NOTE | 2017-03-14 14:18 | Discharge Instructions ---
Discharge Instructions Date of Service Mar 14, 2017. Admission Reason for Admission: Pneumonia Discharge Discharge Diagnosis / Problem: Pneumonia Discharge Goals Goal(s): Decrease discomfort, Improve function, Improve disease control, Learn about illness, Therapeutic intervention Activity Recommendations Activity Limitations: as noted below Lifting Limitations: gradually increase as tolerated Exercise/Sports Limitations: as tolerated May Resume Sexual Activity: when tolerated Shower/Bathe: no limitations . Instructions / Follow-Up Instructions / Follow-Up DISCHARGE INSTRUCTION RE: MEDS Please hold today's dose of warfarin (03/14/17). Please also recheck INR tomorrow. (INR was 4.2 today.) Please continue oral Levaquin thru Mar 22, 2017. Please also have patient use his inhaler as directed. Continue valsartan, statin, Coreg Recommend f/u with podiatry for attention to toenails needed. HOSPITAL COURSE: 87M admitted on 03/09 with altered mental status after being found in home with oven on with door open, wrapped in coats, electric heater on, and heat on in house, likely with chills at home. Found to have b/l LL pneumonia, sepsis, altered mental status, acute respiratory failure. PMH of CHF, h/o PNA, ARF, HTN , CAD s/p MVR. Pt lives alone, former smoker (quit in his 40s). Initially: CT head: wnl CXR: evidence of PNA or atelectasis UA: neg Influenza pcr: neg ECG: PVCs, wnl. Acute hypoxemic respiratory failure Found to have bilateral LL PNA Leukocytosis resolved. Fever resolved. On Levaquin PO. Will need script for supply to end on 03/22/17, per pulm Wean off O2 as able. Not on O2 at home. Combivent use: Continue on dc. (Daughter declines known COPD/asthma dx. States several inhalers were started on prior admission--> will continue given PNA). On discharge please continue oral Levaquin thru Mar 22, 2017. Please also have patient use his inhaler as directed. Acute metabolic encephalopathy Resolved, AOx3. Likely 2/2 early sepsis, pneumonia likely source Started vanc/zosyn in ED, now on Levaquin IV. Switching to Levaquin PO, as above. Bacteremia, GNR Repeat blood cx grows pseudomonas x2. Pansensitive. On levaquin PO. LE Cellulitis LLE venous US wnl, therapeutic on coumadin. No h/o MRSA. Levaquin covering adequately improving. Will require 14 day course. Recommend f/u with podiatry for attention to toenails needed. HTN Controlled, restarted coreg, BP stable. Continue valsartan. CHF Lasix held on admission for need for IVFs and elevated lactate- restarting home lasix today, will look for improvement in breathing. Monitor fluid resuscitation given this hx Valsartan as above. Mild elevation in LFT's noted today (AST 40 from 38, ALT 25 from 20). Likely 2/ 2 hepatic congestion from fluid overload - will monitor after lasix adm. Please restart Lasix as directed. CAD s/p CABG and MVR:stable, no current issues, trop neg on admission, ECG no ischemic changes Continue plavix, is allergic to ASA Continue statin, Coreg Aflutter: rate controlled; PVC's noted on Tele. Asymptomatic. Continue coreg. Continue coumadin (held for INR 3.3 yesterday) INR 4.2 today. - Please hold today's dose of warfarin (03/14/17). Please also recheck INR tomorrow. Subjective dark urine, ruled out hematuria Per pt, says urine was "bloody" this AM. Per nurse, was dark mert. Ordered UA, came back negative. Likely darkened due to fluid status. Dispo: per PT/OT, may require inpatient rehab post DC. Waiting on [facility] approval. Code status: Full code per daughter, although she states pt has a living will and would not want prolonged life support or feeding tubes PPX: on coumadin for DVT proph, PPI for stress ulcer proph Current Hospital Diet Patient's current hospital diet: Low Sodium Diet (2gm Na) Discharge Diet Recommended Diet: AHA Diet (Heart Healthy), Low Sodium Diet (2gm Na) Fluid Restriction: None Pending Studies Studies pending at discharge: no Medical Emergencies . Who to Call and When: Medical Emergencies: If at any time you feel your situation is an emergency, please call 911 immediately. . Non-Emergent Contact Non-Emergency issues call your: Primary Care Provider . . "Provider Documentation" section prepared by Ellie Tran. . VTE Core Measure Inpt VTE Proph given/why not?: Warfarin (Coumadin)
[2017-03-14 15:02] VITALS: BP 163/97; PULSE 80; TEMP 37.2; O2SAT 96
[2017-03-14 15:25] VITALS: BP 160/84; PULSE 85
[2017-03-14] MEDS ORDERED: WARFARIN SOD 2.5 MG TAB PO SCH (16:00)
--- NOTE | 2017-03-14 17:40 | Discharge Summary ---
Discharge Summary Date of Service Mar 14, 2017. Discharge Summary Admission Date: Mar 09, 2017 at 15:32 Discharge Date: Mar 14, 2017 Principal Diagnosis: Pneumonia, altered mental status, cellulitis Immunizations: Have You Had Influenza Vaccine: Yes Influenza Vaccine Date: Apr 03, 2012 History of Tetanus Vaccine?: HAD IN 2011 History of Pneumococcal: HAD IN THE PAST History of Hepatitis B Vaccine: Unknown Medication Reconciliation New Medications: Levofloxacin (Levofloxacin) 750 Mg Tab 750 MG PO DAILY@1600 for 9 Days, #10 TAB Continued Medications: Atorvastatin (Lipitor) 40 Mg Tab 40 MG PO HS, TAB Carvedilol (Coreg) 12.5 Mg Tab 12.5 MG PO BID, TAB Clopidogrel Bisulfate (Clopidogrel) 75 Mg Tab 75 MG PO DAILY Furosemide (Lasix) 40 Mg Tab 40 MG PO DAILY, TAB Ipratropium-Albuterol (Combivent Respimat) 1 Aer Aer 1 PUFFS INH QID for 30 Days, #1 EA 3 Refills (This prescription has been renewed ) Nitroglycerin (Nitrostat) 0.4 Mg Tab 0.4 MG UT PRN, 0 Refills Omeprazole (Prilosec) 20 Mg Capcr 20 MG PO DAILY, 0 Refills Potassium Ext Rel (Klor-Con) 20 Meq Tabcr 20 MEQ PO QAM, TAB Valsartan (Diovan) 80 Mg Tab 80 MG PO DAILY, TAB Warfarin Sodium (Warfarin Sodium) 5 Mg Tab 5 MG PO MWF Warfarin Sodium (Coumadin) 5 Mg Tab 2.5 MG PO 4XWK, TAB SUN,TUE,THUR,SAT Discharge Exam Review of Systems: Constitutional: No fever, No chills, No sweats Cardiovascular: No chest pain, No orthopnea, No palpitations Abdomen: No pain, No nausea, No vomiting Musculoskeletal: + problem reported (pt c/o mild pain in arm where he received vaccination) Physical Exam: General Appearance: WD/WN, no apparent distress Eyes: normal inspection, EOMI Respiratory/Chest: chest non-tender, lungs clear, normal breath sounds, + accessory muscle use Cardiovascular: regular rate, rhythm, no gallop, no JVD, no murmur Abdomen / GI: normal bowel sounds, non tender, soft Extremities: + pertinent finding (erythema and warmth present on LLE) Neurologic/Psychiatric: alert, normal mood/affect, oriented x 3 Skin: warm/dry Hospital Course 87M admitted on 03/09 with altered mental status after being found in home with oven on with door open, wrapped in coats, electric heater on, and heat on in house, likely with chills at home. Found to have b/l LL pneumonia, sepsis, altered mental status, acute respiratory failure. PMH of CHF, h/o PNA, ARF, HTN , CAD s/p MVR. Pt lives alone, former smoker (quit in his 40s). Initially: CT head: wnl CXR: evidence of PNA or atelectasis UA: neg Influenza pcr: neg ECG: PVCs, wnl. Acute hypoxemic respiratory failure, with leukocytosis Found to have bilateral LL PNA Leukocytosis resolved. Fever resolved. On Levaquin PO. Will continue until 03/22/17, per pulm. Sent with script. Wean off O2 as able. Not on O2 at home. Combivent use: Continue on dc. (Daughter declines known COPD/asthma dx. States several inhalers were started on prior admission--> will continue given PNA). Acute metabolic encephalopathy Resolved, AOx3. Likely 2/2 early sepsis, pneumonia likely source Started vanc/zosyn in ED, now on Levaquin IV. Switched to Levaquin PO, as above. Bacteremia, GNR Repeat blood cx grows pseudomonas. Pansensitive. On levaquin PO. Blood CX negative at time of discharge. LE Cellulitis LLE venous US wnl, therapeutic on coumadin. No h/o MRSA. Levaquin covering adequately improving. Will require 14 day course. Recommend f/u with podiatry for attention to toenails needed. HTN Controlled, restarted coreg, BP stable. Restart valsartan. CHF Lasix held on admission for need for IVFs and elevated lactate- restarting home lasix today, will look for improvement in breathing. Monitor fluid resuscitation given this hx Valsartan as above. Mild elevation in LFT's noted today (AST 40 from 38, ALT 25 from 20). Likely 2/ 2 hepatic congestion from fluid overload - will monitor after lasix adm. CAD s/p CABG and MVR:stable, no current issues, trop neg on admission, ECG no ischemic changes Continue plavix, is allergic to ASA Continue statin, Coreg Aflutter: rate controlled; PVC's noted on Tele. Asymptomatic. Continue coreg. Continue coumadin (held for INR 3.3 yesterday) INR 4.2 today. Coumadin held for today. Subjective dark urine, ruled out hematuria Per pt, says urine was "bloody" this AM. Per nurse, was dark mert. Ordered UA, came back negative. Likely darkened due to fluid status. Code status: Full code per daughter, although she states pt has a living will and would not want prolonged life support or feeding tubes PPX: on coumadin for DVT proph, PPI for stress ulcer proph Discharged: to [facility] Total Time Spent: Greater than 30 minutes This includes examination of the patient, discharge planning, medication reconciliation, and communication with other providers. Discharge Instructions Please refer to the electronic Patient Visit Report (Discharge Instructions) for additional information. Additional Copies To Sugey Fields M.D. Resident Tracking Resident Involvement: Resident Care Provided Care Provided: Adult Hospital Medicine
== END 2017-03-14 16:23 | DRG 871 ==
LOC: EDBD 11:51 → C.EDB 11:52 → C.2T 15:32 → ENRESERV 15:51
PROVIDERS: ADMIT Family Medicine; ATTEND Hospitalist
DX: A41.52 Sepsis due to Pseudomonas (principal); J18.9 Pneumonia, unspecified organism; J96.01 Acute respiratory failure with hypoxia; G93.41 Metabolic encephalopathy; L03.116 Cellulitis of left lower limb; I50.32 Chronic diastolic (congestive) heart failure; I48.92 Unspecified atrial flutter; R82.90 Unspecified abnormal findings in urine; R60.0 Localized edema; I11.0 Hypertensive heart disease with heart failure; I25.10 Atherosclerotic heart disease of native coronary artery without angina pectoris; K21.9 Gastro-esophageal reflux disease without esophagitis; N40.0 Benign prostatic hyperplasia without lower urinary tract symptoms; Z23 Encounter for immunization; Z95.2 Presence of prosthetic heart valve; Z87.891 Personal history of nicotine dependence; Z95.1 Presence of aortocoronary bypass graft; Z88.6 Allergy status to analgesic agent; Z79.02 Long term (current) use of antithrombotics/antiplatelets; Z79.01 Long term (current) use of anticoagulants; Z79.899 Other long term (current) drug therapy

== ENCOUNTER → 2017-03-28 | Outpatient (CLI) | payer OTHER ==
[~2017-03-28] MED LIST changes: +CARV12.52 PO; -CLOP1TAB15 PO; -CRG125 PO; +FRS/40 PO; -LSX40 PO; -MCRK20 PO; +PLV75 PO; +POTA20TA16 PO; +WARF-246 PO; +WARF5TAB90 PO
== END | disposition home or self-care (01) ==
LOC: C.PATHSPEC 17:30
PROVIDERS: ATTEND Nurse Practitioner Adult Health
DX: R31.0 Gross hematuria (principal)

== ENCOUNTER → 2017-04-11 | Outpatient (CLI) | payer OTHER ==
[2017-04-11 16:35] LABS: INR 1.2 (0.9-1.1); PROTHROMBIN TIME (PATIENT) 12.9 SECONDS (9.0-12.0)
== END | disposition home or self-care (01) ==
LOC: C.LABSPEC 15:50
PROVIDERS: ATTEND Internal Medicine Interventional Cardiology
DX: I48.91 Unspecified atrial fibrillation (principal)

== ENCOUNTER → 2017-04-18 | Outpatient (CLI) | payer OTHER ==
[2017-04-18 17:46] LABS: INR 1.7 (0.9-1.1)
--- NOTE | 2017-05-23 07:03 | CODING QUERY NO DIAGNOSIS ---
TREATMENT RENDERED WITHOUT A DIAGNOSIS To promote full compliance with coding requirements relating to patient care, physician participation is requested in all cases of patient day coordinator uncertainty. Please assist us with providing a copy of the original, signed physician order for the test(s) below: DATE OF SERVICE 04/18/17 PROTHROMBIN TIME PROFILE Thank you Ninoska Jasmine [facility] Information Management Once completed, please kindly fax back to [phone] For questions please call [phone]
--- NOTE | 2017-06-07 07:52 | CODING QUERY NO DIAGNOSIS ---
TREATMENT RENDERED WITHOUT A DIAGNOSIS To promote full compliance with coding requirements relating to patient care, physician participation is requested in all cases of windmill technician uncertainty. Please assist us with providing a diagnosis/symptom for the test(s) below: A diagnosis/symptom was not documented on your Order. A valid diagnosis/symptom is required to bill all insurances. Please remember that we are unable to code a diagnosis of rule out, probable, possible, questionable, or suspected. Tests that require a diagnosis for date of service 04/18/17: * PROTHROMBIN TIME PROFILE DIAGNOSIS: Provider Signature: Date: Thank you Ninoska Jasmine [employer] Information Management Once completed, please kindly fax back to [phone] For questions please call [phone]
== END | disposition home or self-care (01) ==
LOC: C.LABSPEC 11:37
PROVIDERS: ATTEND Internal Medicine Interventional Cardiology
DX: Z01.89 Encounter for other specified special examinations (principal)

== ENCOUNTER → 2017-05-10 | Outpatient (CLI) | payer OTHER | END | disposition home or self-care (01) | LOC: C.LABSPEC 13:56 | PROVIDERS: ATTEND Nurse Practitioner Adult Health | DX: R30.0 Dysuria (principal) ==

== ENCOUNTER → 2017-05-10 | Outpatient (CLI) | payer OTHER ==
[2017-05-10 14:13] LABS: INR 1.9 (0.9-1.1)
== END | disposition home or self-care (01) ==
LOC: C.LABSPEC 13:52
PROVIDERS: ATTEND Internal Medicine Interventional Cardiology
DX: Z01.89 Encounter for other specified special examinations (principal)

== ENCOUNTER → 2017-05-17 | Outpatient (CLI) | payer OTHER ==
[2017-05-17 12:57] LABS: INR 2.5 (0.9-1.1)
== END | disposition home or self-care (01) ==
LOC: C.LABSPEC 12:43
PROVIDERS: ATTEND Internal Medicine Interventional Cardiology
DX: I48.91 Unspecified atrial fibrillation (principal)

== ENCOUNTER → 2017-05-24 | Outpatient (CLI) | payer OTHER ==
[2017-05-24 11:52] LABS: PROTHROMBIN TIME (PATIENT) 31.1 SECONDS (9.0-12.0)
== END | disposition home or self-care (01) ==
LOC: C.LABSPEC 11:35
PROVIDERS: ATTEND Internal Medicine Interventional Cardiology
DX: I48.91 Unspecified atrial fibrillation (principal)

== ENCOUNTER → 2017-06-07 | Outpatient (CLI) | payer OTHER ==
[2017-06-07 12:55] LABS: INR 3.8 (0.9-1.1)
== END | disposition home or self-care (01) ==
LOC: C.LABSPEC 16:53
PROVIDERS: ATTEND Internal Medicine Interventional Cardiology
DX: I48.92 Unspecified atrial flutter (principal)

== ENCOUNTER → 2017-06-14 | Outpatient (CLI) | payer OTHER ==
[2017-06-14 12:38] LABS: INR 2.5 (0.9-1.1)
== END | disposition home or self-care (01) ==
LOC: C.LABSPEC 09:15
PROVIDERS: ATTEND Internal Medicine Interventional Cardiology
DX: I48.92 Unspecified atrial flutter (principal)

== ENCOUNTER → 2017-06-21 | Outpatient (CLI) | payer OTHER ==
[2017-06-21 12:45] LABS: INR 2.8 (0.9-1.1)
== END | disposition home or self-care (01) ==
LOC: C.LABSPEC 09:00
PROVIDERS: ATTEND Internal Medicine Interventional Cardiology
DX: I48.92 Unspecified atrial flutter (principal)

== ENCOUNTER → 2017-07-05 | Outpatient (CLI) | payer OTHER ==
[~2017-07-05] MED LIST changes: +ECRCR EXT; +FINA5TAB PO; +FLM4 PO; +LVQ750 PO
--- NOTE | 2017-07-19 09:00 | CODING QUERY NO DIAGNOSIS ---
Valid Physician Order Needed A valid physician order must be submitted in order to properly bill for the service(s) provided, including date of service(s), valid diagnosis, and physician signature. If these tests are done on a recurring basis the original physican order must be submitted in order to code and bill for the service(s) provided. Please fax us the original, signed physician order so that we may expedite billing to [phone] DOS 07/05/17 * PT/INR Thank you Мария [facility] Information Management
== END | disposition home or self-care (01) ==
LOC: C.LABSPEC 13:31
PROVIDERS: ATTEND Internal Medicine Interventional Cardiology
DX: Z01.89 Encounter for other specified special examinations (principal)

== ENCOUNTER 2017-08-01 18:57 | Inpatient (IN) | payer OTHER ==
[~2017-08-01] VITALS: Ht 180.3 cm; Wt 92.2 kg
[~2017-08-01 18:57] MED LIST changes: -ECRCR EXT; -FINA5TAB PO; -FLM4 PO; -LVQ750 PO
[2017-08-01] MEDS ORDERED: ONDANSETRON INJ 2 MG/ML 2 ML VIAL IV STA (19:37)
[2017-08-01] MEDS ORDERED: MoRPHine SULFATE 4 MG/ML 1 ML CARP\\VIAL IV STA (19:37)
[2017-08-01] MEDS ORDERED: SODIUM CHLORIDE 0.9% 1000ML 1,000 ML IV STA (19:37)
[2017-08-01 19:46] LABS: BASO % 0.2 %; BASO ABS # 0.03 K/uL (0-0.2); EOS % 0.3 %; EOS ABS # 0.05 K/uL (0-0.5); HEMATOCRIT 44.8 % (42-52); HEMOGLOBIN 15.8 g/dL (14.0-18.0); IG# 0.04 K/uL (0.00-0.02); LYMPH % 6.3 %; LYMPH ABS # 0.96 K/uL (1.2-3.4); MEAN CELL VOLUME 90.5 fL (80-100); MEAN CORPUSCULAR HEMOGLOBIN 31.9 pg (25-34); MEAN CORPUSCULAR HGB CONC 35.3 g/dl (32-36); MEAN PLATELET VOLUME 9.7 fL (7.4-10.4); MONO % 7.9 %; MONO ABS # 1.21 K/uL (0.11-0.59); NEUT ABS # 13.06 K/uL (1.4-6.5); PLATELET COUNT 201 K/uL (130-400); RED CELL DISTRIBUTION WIDTH CV 14.3 % (11.5-14.5); RED CELL DISTRIBUTION WIDTH SD 47.3 fL (36.4-46.3); WHITE BLOOD COUNT 15.35 K/uL (4.8-10.8)
[2017-08-01 19:54] LABS: ALBUMIN 2.5 gm/dl (3.4-5.0); CALCIUM 8.3 mg/dl (8.5-10.1); CREATININE 1.24 mg/dl (0.60-1.40); POTASSIUM 3.9 mmol/L (3.5-5.1)
[2017-08-01 20:00] LABS: TOTAL PROTEIN 6.2 gm/dl (6.4-8.2)
[2017-08-01 20:19] LABS: INR 2.3 (0.9-1.1)
--- NOTE | 2017-08-01 20:58 | DIAGNOSTIC IMAGING REPORT ---
CERVICAL SPINE W/O CLINICAL HISTORY: 87 years-old Male presenting with fall. TECHNIQUE: Multidetector CT of the cervical spine was performed without the use of intravenous contrast. IV contrast: None. A dose lowering technique was used consistent with the principles of ALARA (as low as reasonably achievable). COMPARISON: None. CT DOSE (mGy.cm): The estimated cumulative dose is 1063.79 mGy.cm. FINDINGS: Access Registrar topogram: The patient is edentulous. Normal cervical lordosis. Osteopenia suspected. Multilevel degenerative changes with disc osteophyte complexes to varying degrees at every level. At C2-3 and C3-4, there is suggestion of syndesmophytosis. Extensive degenerative changes of the atlantodental articulation. Degenerative related osseous fusion of facet joints throughout the cervical spine. No evidence of acute fracture or subluxation. Posterior bony spurring from the disc osteophyte complex at C5-6 results in mild osseous spinal canal narrowing. Disc osteophyte complexes/uncovertebral and facet hypertrophy result in osseous neural foraminal narrowing on the left at C3-4 and bilaterally at C5-6. Soft tissue gas is again apparent best seen on series 5 image 63 adjacent to the right mandibular condyle. Again, no visualized osseous injury within the [id number]. No evidence of a skull base fracture. Moderate right pleural effusion. Debris noted in the upper trachea. Lung apices clear. IMPRESSION: 1. Soft tissue gas again noted in the region of the right mandibular condyle, which is of uncertain etiology and raises concern for acute osseous injury of the face though none is seen within the [id number]. Further evaluation with CT of the face to be considered as clinically indicated. 2. No acute osseous injury of the cervical spine. 3. Multilevel degenerative changes of the cervical spine. 4. Moderate right pleural effusion. 5. Debris in the trachea raises concern for aspiration. Electronically signed by: Yusuf Beasley M.D. 08/01/2017 8:38 PM Dictated Date/Time: 08/01/2017 8:32 PM
--- NOTE | 2017-08-01 20:58 | DIAGNOSTIC IMAGING REPORT ---
HEAD WITHOUT CONTRAST (CT) CLINICAL HISTORY: 87 years-old Male presenting with fall . TECHNIQUE: Multidetector CT imaging of the head was performed without the use of intravenous contrast. IV contrast: None. A dose lowering technique was used consistent with the principles of ALARA (as low as reasonably achievable). COMPARISON: 03/09/2017. CT DOSE (mGy.cm): The estimated cumulative dose is 1063.79 inclusive of the cervical spine. FINDINGS: Architectural Intern topogram: The patient is edentulous. Proportional ventricular and sulcal prominence, likely age-related parenchymal volume loss. Periventricular and subcortical white matter hypoattenuation, nonspecific but likely indicative of chronic small vessel ischemic change. No mass effect or midline shift. No hemorrhage or acute territorial infarct. No extra-axial fluid collection. Paranasal sinuses and mastoid air cells clear. Calvarium intact. Bilateral [place] lenses are absent. Few foci of gas are noted in the emt b space on the right and lateral to the right mandibular condyle. IMPRESSION: 1. No acute intracranial abnormality. 2. Few foci of gas noted in the right emt b space. This raises concern for acute osseous injury outside of the field of view. The report will be called/faxed according to standard departmental protocol. Electronically signed by: Yusuf Beasley M.D. 08/01/2017 8:32 PM Dictated Date/Time: 08/01/2017 8:27 PM
[2017-08-01] MEDS ORDERED: FINA5TAB PO (21:11)
[2017-08-01] MEDS ORDERED: FLM4 PO (21:11)
--- NOTE | 2017-08-01 22:01 | DIAGNOSTIC IMAGING REPORT ---
FACIAL BONES-MXILLOFAC WITHOUT CLINICAL HISTORY: 87 years-old Male presenting with ? fx . TECHNIQUE: Multidetector CT of the face was performed without the use of intravenous contrast. IV contrast: None. A dose lowering technique was used consistent with the principles of ALARA (as low as reasonably achievable). COMPARISON: CT head and CT cervical spine performed earlier the same day. CT DOSE (mGy.cm): The estimated cumulative dose is 1276.60 mGy.cm. FINDINGS: Architectural Drafting Instructor topogram: The patient is edentulous. Many of the foci of soft tissue gas noted in the right sleep lab technologist space have resolved since the prior exam. Few foci remain adjacent to the lateral aspect of the right mandibular condyle. Gas in the soft tissues lateral to the right buccal gross also noted but possibly oral in location. Degenerative changes of the temporomandibular joints. No evidence of fracture allowing for motion artifact and exclusion of the most inferior aspect of the mandible. Paranasal sinuses and mastoid air cells clear. No skull base fracture. Orbits intact. The upper airway is patent. IMPRESSION: Minimally of the foci of soft tissue emphysema previously noted in the right sleep lab technologist space are resolved. Few of the remaining foci are adjacent to the right mandibular condyle and may be related to degenerative change of the temporal mandibular joints. No convincing evidence of acute osseous injury of the face allowing for motion artifact at the inferior mandible. Electronically signed by: Yusuf Beasley M.D. 08/01/2017 10:00 PM Dictated Date/Time: 08/01/2017 9:54 PM
--- NOTE | 2017-08-01 22:48 | DIAGNOSTIC IMAGING REPORT ---
CHEST ONE VIEW PORTABLE CLINICAL HISTORY: 87 years-old Male presenting with fall . TECHNIQUE: Portable upright AP view of the chest was obtained. COMPARISON: 03/12/2017. FINDINGS: Atherosclerosis of aortic arch. Cardiac silhouette enlarged. Prosthetic mitral valve noted. Pulmonary vascular prominence. Hazy bibasilar and central opacities. Small bilateral pleural effusions. No large pneumothorax. Degenerative changes of the right shoulder. No gross evidence of acute osseous injury. IMPRESSION: 1. Cardiomegaly with pulmonary vascular prominence and suspected mild pulmonary edema with small bilateral pleural effusions. Electronically signed by: Yusuf Beasley M.D. 08/01/2017 10:47 PM Dictated Date/Time: 08/01/2017 10:45 PM
--- NOTE | 2017-08-01 22:50 | DIAGNOSTIC IMAGING REPORT ---
L FEMUR 2 VIEWS ROUTINE CLINICAL HISTORY: 87 years-old Male presenting with L femur pain . TECHNIQUE: Frontal and lateral views of the left femur were obtained. COMPARISON: None. FINDINGS: Left hip joint and left knee joint congruent. Mild osteophytosis at the left hip joint. Joint spaces preserved. No femoral neck fracture. No acute fracture or malalignment of the femur. Tricompartmental degenerative changes of the knee suspected with mild medial joint space loss. No knee joint effusion. Enthesophyte at the insertion of the quadriceps tendon. Visualized portion of the bony pelvis intact. IMPRESSION: 1. No acute osseous injury of the left femur. 2. Mild degenerative changes of the left hip and left knee. Electronically signed by: Yusuf Beasley M.D. 08/01/2017 10:49 PM Dictated Date/Time: 08/01/2017 10:47 PM
--- NOTE | 2017-08-01 22:53 | DIAGNOSTIC IMAGING REPORT ---
PELVIS 1 OR 2 VIEW ROUTINE CLINICAL HISTORY: 87 years-old Male presenting with fall . TECHNIQUE: Single frontal view of the pelvis was obtained. COMPARISON: Correlation made to CT from 04/02/2017. FINDINGS: Degenerative changes of the bilateral sacroiliac joints and pubic symphysis, which remain congruent. Bilateral hip joints congruent. Degenerative changes of the bilateral hip joints also noted though joint spaces preserved. No femoral neck fracture. The pelvis intact. IMPRESSION: No acute osseous injury of the pelvis. Electronically signed by: Yusuf Beasley M.D. 08/01/2017 10:51 PM Dictated Date/Time: 08/01/2017 10:50 PM
[2017-08-01] MEDS ORDERED: FUROSEMIDE INJ 20 MG in SYRINGE 0 ML IV ONE (23:15)
--- NOTE | 2017-08-01 23:40 | History and Physical ---
History & Physical Date & Time of Service: Aug 01, 2017 at 23:26 Chief Complaint: Fall/ Extremities, Weak, Tremor Primary Care Physician: No Doctor, Assigned History of Present Illness Source: patient 87 y/o M Hx R CHF, HTN, paroxysmal AF, CAD, mitral stenosis post annuloplasty. Pt presents following a fall where he was on the floor for 3 hours and then managed to call his daughter to help him up. He states that his legs had given out on him leading to his fall. He c/o L hip and shoulder pain following his fall. He also states that he has been increasingly SOB recently and that his R arm has been intermittently weak. A full skeletal survey including a CT head, cervical CT and hip XR proved negative for acute abnormalities. The pt was mildly hypoxic on arrival to the ER and exhibits labored breathing on admission. A CXR and clinical exam are consistent with volume overload. He denies a productive cough or fevers, denies diarrhea or dysuria, denies head trauma following his fall. Past Medical/Surgical History 1) HTN 2) CHF - reduced RV function per echo 2015 3) Paroxysmal A flutter 4) GERD 5) History of pseudomonas sepsis 6) Mitral stenosis - post annuloplasty 7) CAD - 3V CABG 1999 Family History Heart disease Social History Pt lives alone - denies ETOH - distant smoking Hx Smoking Status: Former Smoker Drug Use: none Marital Status: Housing status: lives alone Occupational Status: retired Immunizations History of Influenza Vaccine: Yes Influenza Vaccine Date: Apr 03, 2012 History of Tetanus Vaccine?: HAD IN 2011 History of Pneumococcal: HAD IN THE PAST History of Hepatitis B Vaccine: Unknown Allergies Coded Allergies: Aspirin (Verified Adverse Reaction, Intermediate, GI ULCERATION- WHEN TAKEN WITH COUMADIN, 08/01/17) Black Pepper (Verified Adverse Reaction, Mild, 08/01/17) Lisinopril (Verified Adverse Reaction, Mild, 08/01/17) Sulfa Antibiotics (Verified Adverse Reaction, Unknown, "SULFA DRUGS": HAS TOLERATED LASIX IN PAST, 08/01/17) Home Medications Scheduled Atorvastatin (Lipitor), 40 MG PO HS Carvedilol (Coreg), 12.5 MG PO BID Clopidogrel Bisulfate (Clopidogrel), 75 MG PO DAILY Finasteride (Proscar), 5 MG PO HS Furosemide (Lasix), 40 MG PO DAILY Ipratropium-Albuterol (Combivent Respimat), 1 PUFFS INH QID Nitroglycerin (Nitrostat), 0.4 MG UT PRN Omeprazole (Prilosec), 20 MG PO DAILY Potassium Ext Rel (Klor-Con), 20 MEQ PO QAM Tamsulosin HCl (Tamsulosin HCl), 0.4 MG PO HS Valsartan (Diovan), 80 MG PO DAILY Warfarin Sodium (Warfarin Sodium), 5 MG PO MWF Warfarin Sodium (Coumadin), 2.5 MG PO [id number] Review of Systems Constitutional: + weakness, + fatigue, No fever, No chills, No sweats Eyes: No worsening of vision ENT: No hearing loss, No unusual epistaxis, No nasal symptoms Respiratory: + shortness of breath, + dyspnea on exertion, + dyspnea at rest, No cough, No sputum, No wheezing Cardiovascular: + orthopnea Abdomen: No pain, No nausea, No vomiting Musculoskeletal: + joint pain (L hip, L shoulder), + problem reported ( increasing pedal edema) Genitourinary - Male: No hematuria, No dysuria, No urinary frequency Neurologic: + weakness, + problem reported (States his R arm is intermittently weak), No memory loss Psychiatric: No depression symptoms Endocrine: + fatigue Hematologic / Lymphatic: No abnormal bleeding/bruising Integumentary: No rash Allergic / Immunologic: No environmental allergies Physical Exam Vital Signs Date Time Temp Pulse Resp B/P (MAP) Pulse Ox O2 Delivery O2 Flow Rate FiO2 08/01/17 23:06 86 08/01/17 22:56 83 20 154/79 94 Nasal Cannula 2.0 08/01/17 21:00 20 141/78 96 Nasal Cannula 2.0 08/01/17 20:04 82 20 141/71 97 Nasal Cannula 08/01/17 19:43 82 08/01/17 19:27 37.4 84 24 144/77 90 Room Air General Appearance: + pertinent finding (Lethargic elderly male - labored breathing - AAO x 2.5) Head: normocephalic Eyes: normal inspection, EOMI ENT: normal ENT inspection, pharynx normal Neck: supple, + JVD Respiratory/Chest: chest non-tender, + pertinent finding (Decreased air entry into R base - crackles on L) Cardiovascular: regular rate, rhythm, + JVD, + systolic murmur (Click and slight murmur) Abdomen/GI: normal bowel sounds, non tender, soft Back: normal inspection, no CVA tenderness Extremities/Musculoskelatal: + pertinent finding (Pain with active moveement of L leg - 3+ BL edema) Neurologic/Psych: choker hooker II-XII nml as tested, alert, + pertinent finding (L pronator drift may be due to muscular issue - neon glass blower is weak on R - diffficulty with raisinig both LEs) Skin: + pertinent finding (Stasis changes in LEs) Diagnostics Laboratory Results Results Past 24 Hours Test 08/01/17 17:15 08/01/17 19:22 08/01/17 20:45 Range/Units White Blood Count 15.35 4.8-10.8 K/uL Red Blood Count 4.95 4.7-6.1 M/uL Hemoglobin 15.8 14.0-18.0 g/dL Hematocrit 44.8 42-52 % Mean Corpuscular Volume 90.5 80-100 fL Mean Corpuscular Hemoglobin 31.9 25-34 pg Mean Corpuscular Hemoglobin Concent 35.3 32-36 g/dl Platelet Count 201 130-400 K/uL Mean Platelet Volume 9.7 7.4-10.4 fL Neutrophils (%) (Auto) 85.0 % Lymphocytes (%) (Auto) 6.3 % Monocytes (%) (Auto) 7.9 % Eosinophils (%) (Auto) 0.3 % Basophils (%) (Auto) 0.2 % Neutrophils # (Auto) 13.06 1.4-6.5 K/uL Lymphocytes # (Auto) 0.96 1.2-3.4 K/uL Monocytes # (Auto) 1.21 0.11-0.59 K/uL Eosinophils # (Auto) 0.05 0-0.5 K/uL Basophils # (Auto) 0.03 0-0.2 K/uL RDW Standard Deviation 47.3 36.4-46.3 fL RDW Coefficient of Variation 14.3 11.5-14.5 % Immature Granulocyte % (Auto) 0.3 % Immature Granulocyte # (Auto) 0.04 0.00-0.02 K/uL Prothrombin Time 23.3 9.0-12.0 SECONDS Prothromb Time International Ratio 2.3 0.9-1.1 Sodium Level 138 136-145 mmol/L Potassium Level 3.9 3.5-5.1 mmol/L Chloride Level 105 98-107 mmol/L Carbon Dioxide Level 25 21-32 mmol/L Anion Gap 8.0 3-11 mmol/L Blood Urea Nitrogen 29 7-18 mg/dl Creatinine 1.24 0.60-1.40 mg/dl Est Creatinine Clear Calc Drug Dose 50.2 ml/min Estimated GFR () 60.6 Estimated GFR (Non- 52.3 BUN/Creatinine Ratio 23.3 10-20 Random Glucose 110 70-99 mg/dl Calcium Level 8.3 8.5-10.1 mg/dl Total Bilirubin 1.6 0.2-1 mg/dl Direct Bilirubin 0.4 0-0.2 mg/dl Aspartate Amino Transf (AST/SGOT) 40 15-37 U/L Alanine Aminotransferase (ALT/SGPT) 29 12-78 U/L Alkaline Phosphatase 90 45-117 U/L Total Creatine Kinase 303 39-308 U/L Troponin I 0.033 0-0.045 ng/ml Total Protein 6.2 6.4-8.2 gm/dl Albumin 2.5 3.4-5.0 gm/dl Lipase 137 73-393 U/L Bedside Lactic Acid Venous 1.50 0.90-1.70 mmol/L Urine Color DK YELLOW Urine Appearance CLEAR CLEAR Urine pH 5.0 4.5-7.5 Urine Specific [place] 1.026 1.000-1.030 Urine Protein 1+ NEG Urine Glucose (UA) NEG NEG Urine Ketones NEG NEG Urine Occult Blood 3+ NEG Urine Nitrite NEG NEG Urine Bilirubin NEG NEG Urine Urobilinogen NEG NEG Urine Leukocyte Esterase SMALL NEG Urine WBC (Auto) 10-30 0-5 /hpf Urine RBC (Auto) >30 0-4 /hpf Urine Hyaline Casts (Auto) 5-10 0-5 /lpf Urine Epithelial Cells (Auto) >30 0-5 /lpf Urine Bacteria (Auto) NEG NEG Microbiology Results 08/01/17 Urine Culture, Received Pending Diagnostic Radiology CXR: Cardiomegaly with pulmonary vascular prominence and suspected mild pulmonary edema with small bilateral pleural effusions. EKG NSR Impression Assessment and Plan 87 y/o M Hx R CHF, HTN, paroxysmal AF, CAD, mitral stenosis post annuloplasty. Pt presents following a fall where he was on the floor for 3 hours and then managed to call his daughter to help him up. He states that his legs had given out on him leading to his fall. He c/o L hip and shoulder pain following his fall. He also states that he has been increasingly SOB recently and that his R arm has been intermittently weak. A full skeletal survey including a CT head, cervical CT and hip XR proved negative for acute abnormalities. The pt was mildly hypoxic on arrival to the ER and exhibits labored breathing on admission. A CXR and clinical exam are consistent with volume overload. He denies a productive cough or fevers, denies diarrhea or dysuria, denies head trauma following his fall. 1) Fall and weakness. A neuro exam is inconsistent with a focal CVA as he exhibits a drift on the L and reduced neon glass blower strength on the R. Both lower extremities are weak. We will obtain an MRI brain. He does exhibit volume overload and SOB so we will r/o an acute PR and worsening cardiac function as a cause of progressive weakness. The pt has an elevated WBC without fever or obvious source of infection presently. PT and OT will be consulted for AM. He may need acute rehab or longer -term placement if he is unable to recover his strength in a timely manner as he lives alone. 2) CHF - received additional Lasix in the ER - we will continue to provide IV dosing, check daily weights and monitor I/O. Cont Coreg. 3) HTN - cont ARB, Coreg, Lasix 4) Paroxysmal A flutter - cont Coreg - anticoagulated with Coumadin 5) CAD - cont ASA, Plavix, Statin, Coreg. Serial enzymes requested. Full code - Coumadin prophylaxis Total time for this admit including review of labs, meds, imaging, records - discussion with pt and ER attending - 40 min Resuscitation Status VTE Prophylaxis Will order VTE Prophylaxis: Yes
[2017-08-01] MEDS ORDERED: NITROGLYCERIN 0.4 MG SL PER TAB CHARGE UT SCH (23:45)
[2017-08-02] VITALS (11 sets, daily range): BP systolic 72–130; BP diastolic 31–82; PULSE 60–126; TEMP 36.4–37.9; O2SAT 95–100; Ht 180.3 cm; Wt 92.2 kg
[2017-08-02] MEDS ORDERED: ALUMINUM/MAGNESIUM/SIMETH (MAALOX MAX) 30 ML UDC PO PRN (00:15)
[2017-08-02] MEDS ORDERED: ONDANSETRON INJ 2 MG/ML 2 ML VIAL IV PRN (00:15)
[2017-08-02] MEDS ORDERED: MAGNESIUM HYDROXIDE SUSP 30 ML UDC PO PRN (00:15)
[2017-08-02] MEDS ORDERED: ACETAMINOPHEN 325 MG TAB PO PRN (00:15)
[2017-08-02] MEDS ORDERED: POLYETHYLENE (MIRALAX) 17 GM PACK PO PRN (00:15)
--- NOTE | 2017-08-02 00:37 | EMERGENCY ROOM VISIT NOTE ---
History Report prepared by Michael: Shanae Moran Under the Supervision of: Dr. Robert Souza D.O. First contact with patient: 19:28 Chief Complaint: FALL Stated Complaint: FALL/ EXTREMITIES, WEAK, TREMOR History of Present Illness The patient is a 87 year old male who presents to the Emergency Room with complaints of an episode of a fall occurring at 1:30 am. The patient states he was getting up to go to the bathroom when his legs started shaking and he fell to the ground. He laid on the floor until about 4:30 am which is when he could get ahold of his daughter. The patient notes some shortness of breath, back pain and right hip pain. He denies hitting his head. Pt denies headache, change in vision, fevers, chest pain, nausea, vomiting, diarrhea, pain with urination, and melena. Source of History: patient Onset: 1:30 am Position: other (generalized) Quality: other (fall) Timing: other (episode) Associated Symptoms: + SOB, + back pain, No LOC, No chest pain Review of Systems See HPI for pertinent positives & negatives. A total of 10 systems reviewed and were otherwise negative. Past Medical & Surgical Medical Problems: (1) Acute respiratory failure (2) Bilateral pleural effusion (3) CHF (congestive heart failure) (4) CHF exacerbation (5) Hypertension (6) Mitral valve disorder (7) Pseudomonas septicemia (8) Right lower lobe pneumonia (9) Weakness Family History Heart disease Social History Smoking Status: Former Smoker Alcohol Use: none Drug Use: none Marital Status: Housing Status: lives alone Occupation Status: retired Current/Historical Medications Scheduled Atorvastatin (Lipitor), 40 MG PO HS Carvedilol (Coreg), 12.5 MG PO BID Clopidogrel Bisulfate (Clopidogrel), 75 MG PO DAILY Finasteride (Proscar), 5 MG PO HS Furosemide (Lasix), 40 MG PO DAILY Ipratropium-Albuterol (Combivent Respimat), 1 PUFFS INH QID Nitroglycerin (Nitrostat), 0.4 MG UT PRN Omeprazole (Prilosec), 20 MG PO DAILY Potassium Ext Rel (Klor-Con), 20 MEQ PO QAM Tamsulosin HCl (Tamsulosin HCl), 0.4 MG PO HS Valsartan (Diovan), 80 MG PO DAILY Warfarin Sodium (Warfarin Sodium), 5 MG PO MWF Warfarin Sodium (Coumadin), 2.5 MG PO [id number] Allergies Coded Allergies: Aspirin (Verified Adverse Reaction, Intermediate, GI ULCERATION- WHEN TAKEN WITH COUMADIN, 08/01/17) Black Pepper (Verified Adverse Reaction, Mild, 08/01/17) Lisinopril (Verified Adverse Reaction, Mild, 08/01/17) Sulfa Antibiotics (Verified Adverse Reaction, Unknown, "SULFA DRUGS": HAS TOLERATED LASIX IN PAST, 08/01/17) Physical Exam Vital Signs Date Time Temp Pulse Resp B/P (MAP) Pulse Ox O2 Delivery O2 Flow Rate FiO2 08/01/17 23:30 82 17 95 08/01/17 23:15 83 21 08/01/17 23:06 86 08/01/17 23:01 154/79 08/01/17 23:00 83 22 96 08/01/17 22:56 83 20 154/79 94 Nasal Cannula 2.0 08/01/17 21:00 20 141/78 96 Nasal Cannula 2.0 08/01/17 20:04 82 20 141/71 97 Nasal Cannula 08/01/17 19:43 82 08/01/17 19:27 37.4 84 24 144/77 90 Room Air Physical Exam GENERAL: alert, well appearing, well nourished, no distress, non-toxic, slightly dyspneic with conversation. HEAD: normal cephalic, atraumatic EYE EXAM: normal conjunctiva, PERRL and EOM's grossly intact OROPHARYNX: no exudate, no erythema, lips, buccal mucosa, and tongue normal and mucous membranes are moist EARS: TMs clear b/l NECK: supple, no nuchal rigidity, no adenopathy, non-tender CHEST: stable to compression anteriorly and posteriorly LUNGS: diminished breath sounds bilaterally. Normal chest wall mechanics HEART: no murmurs, S1 normal and S2 normal ABDOMEN: abdomen soft, non-tender, normo-active bowel sounds, no masses, no rebound or guarding. PELVIS: stable to compression anteriorly and posteriorly BACK: Back is symmetrical on inspection and there is no deformity, no midline tenderness, no CVA tenderness. UPPER EXTREMITIES: full passive range of motion of all joints without tenderness to palpation. LOWER EXTREMITIES: full active and passive range of motion of all joints without tenderness to palpation with exception to left hip and knee with moderate pain over left proximal femur. Tenderness to palpation over left hip. Moderate edema to bilateral lower extremities. NEURO EXAM: Normal sensorium, cranial nerves II-XII grossly intact, normal speech, no focal weakness of the upper extremities, does appear to have some weakness of the left lower extremity although I favor secondary to pain. GCS: 15. Medical Decision & Procedures ER Provider Diagnostic Interpretation: Radiology results as stated below per my review and the radiologist's interpretation: FACIAL BONES-MXILLOFAC WITHOUT FINDINGS: Bird Raiser topogram: The patient is edentulous. Many of the foci of soft tissue gas noted in the right risk control analyst space have resolved since the prior exam. Few foci remain adjacent to the lateral aspect of the right mandibular condyle. Gas in the soft tissues lateral to the right buccal gross also noted but possibly oral in location. Degenerative changes of the temporomandibular joints. No evidence of fracture allowing for motion artifact and exclusion of the most inferior aspect of the mandible. Paranasal sinuses and mastoid air cells clear. No skull base fracture. Orbits intact. The upper airway is patent. IMPRESSION: Minimally of the foci of soft tissue emphysema previously noted in the right risk control analyst space are resolved. Few of the remaining foci are adjacent to the right mandibular condyle and may be related to degenerative change of the temporal mandibular joints. No convincing evidence of acute osseous injury of the face allowing for motion artifact at the inferior mandible. Electronically signed by: Yusuf Beasley M.D. CERVICAL SPINE W/O FINDINGS: Bird Raiser topogram: The patient is edentulous. Normal cervical lordosis. Osteopenia suspected. Multilevel degenerative changes with disc osteophyte complexes to varying degrees at every level. At C2-3 and C3-4, there is suggestion of syndesmophytosis. Extensive degenerative changes of the atlantodental articulation. Degenerative related osseous fusion of facet joints throughout the cervical spine. No evidence of acute fracture or subluxation. Posterior bony spurring from the disc osteophyte complex at C5-6 results in mild osseous spinal canal narrowing. Disc osteophyte complexes/uncovertebral and facet hypertrophy result in osseous neural foraminal narrowing on the left at C3-4 and bilaterally at C5-6. Soft tissue gas is again apparent best seen on series 5 image 63 adjacent to the right mandibular condyle. Again, no visualized osseous injury within the [id number]. No evidence of a skull base fracture. Moderate right pleural effusion. Debris noted in the upper trachea. Lung apices clear. IMPRESSION: 1. Soft tissue gas again noted in the region of the right mandibular condyle, which is of uncertain etiology and raises concern for acute osseous injury of the face though none is seen within the [id number]. Further evaluation with CT of the face to be considered as clinically indicated. 2. No acute osseous injury of the cervical spine. 3. Multilevel degenerative changes of the cervical spine. 4. Moderate right pleural effusion. 5. Debris in the trachea raises concern for aspiration. Electronically signed by: Yusuf Beasley M.D. HEAD WITHOUT CONTRAST (CT) FINDINGS: Bird Raiser topogram: The patient is edentulous. Proportional ventricular and sulcal prominence, likely age-related parenchymal volume loss. Periventricular and subcortical white matter hypoattenuation, nonspecific but likely indicative of chronic small vessel ischemic change. No mass effect or midline shift. No hemorrhage or acute territorial infarct. No extra-axial fluid collection. Paranasal sinuses and mastoid air cells clear. Calvarium intact. Bilateral [place] lenses are absent. Few foci of gas are noted in the risk control analyst space on the right and lateral to the right mandibular condyle. IMPRESSION: 1. No acute intracranial abnormality. 2. Few foci of gas noted in the right risk control analyst space. This raises concern for acute osseous injury outside of the field of view. The report will be called/faxed according to standard departmental protocol. Electronically signed by: Yusuf Beasley M.D. CHEST ONE VIEW PORTABLE FINDINGS: Atherosclerosis of aortic arch. Cardiac silhouette enlarged. Prosthetic mitral valve noted. Pulmonary vascular prominence. Hazy bibasilar and central opacities. Small bilateral pleural effusions. No large pneumothorax. Degenerative changes of the right shoulder. No gross evidence of acute osseous injury. IMPRESSION: 1. Cardiomegaly with pulmonary vascular prominence and suspected mild pulmonary edema with small bilateral pleural effusions. Electronically signed by: Yusuf Beasley M.D. L FEMUR 2 VIEWS ROUTINE FINDINGS: Left hip joint and left knee joint congruent. Mild osteophytosis at the left hip joint. Joint spaces preserved. No femoral neck fracture. No acute fracture or malalignment of the femur. Tricompartmental degenerative changes of the knee suspected with mild medial joint space loss. No knee joint effusion. Enthesophyte at the insertion of the quadriceps tendon. Visualized portion of the bony pelvis intact. IMPRESSION: 1. No acute osseous injury of the left femur. 2. Mild degenerative changes of the left hip and left knee. Electronically signed by: Yusuf Beasley M.D. PELVIS 1 OR 2 VIEW ROUTINE FINDINGS: Degenerative changes of the bilateral sacroiliac joints and pubic symphysis, which remain congruent. Bilateral hip joints congruent. Degenerative changes of the bilateral hip joints also noted though joint spaces preserved. No femoral neck fracture. The pelvis intact. IMPRESSION: No acute osseous injury of the pelvis. Electronically signed by: Yusuf Beasley M.D. Laboratory Results 08/01/17 17:15 Red Blood Count 4.95, Mean Corpuscular Volume 90.5, Mean Corpuscular Hemoglobin 31.9, Mean Corpuscular Hemoglobin Concent 35.3, Mean Platelet Volume 9.7, Neutrophils (%) (Auto) 85.0, Lymphocytes (%) (Auto) 6.3, Monocytes (%) (Auto) 7.9, Eosinophils (%) (Auto) 0.3, Basophils (%) (Auto) 0.2, Neutrophils # (Auto) 13.06, Lymphocytes # (Auto) 0.96, Monocytes # (Auto) 1.21, Eosinophils # (Auto) 0.05, Basophils # (Auto) 0.03 08/01/17 17:15 Test 08/01/17 17:15 08/01/17 19:22 08/01/17 20:45 White Blood Count 15.35 K/uL (4.8-10.8) Red Blood Count 4.95 M/uL (4.7-6.1) Hemoglobin 15.8 g/dL (14.0-18.0) Hematocrit 44.8 % (42-52) Mean Corpuscular Volume 90.5 fL (80-100) Mean Corpuscular Hemoglobin 31.9 pg (25-34) Mean Corpuscular Hemoglobin Concent 35.3 g/dl (32-36) Platelet Count 201 K/uL (130-400) Mean Platelet Volume 9.7 fL (7.4-10.4) Neutrophils (%) (Auto) 85.0 % Lymphocytes (%) (Auto) 6.3 % Monocytes (%) (Auto) 7.9 % Eosinophils (%) (Auto) 0.3 % Basophils (%) (Auto) 0.2 % Neutrophils # (Auto) 13.06 K/uL (1.4-6.5) Lymphocytes # (Auto) 0.96 K/uL (1.2-3.4) Monocytes # (Auto) 1.21 K/uL (0.11-0.59) Eosinophils # (Auto) 0.05 K/uL (0-0.5) Basophils # (Auto) 0.03 K/uL (0-0.2) RDW Standard Deviation 47.3 fL (36.4-46.3) RDW Coefficient of Variation 14.3 % (11.5-14.5) Immature Granulocyte % (Auto) 0.3 % Immature Granulocyte # (Auto) 0.04 K/uL (0.00-0.02) Prothrombin Time 23.3 SECONDS (9.0-12.0) Prothromb Time International Ratio 2.3 (0.9-1.1) Anion Gap 8.0 mmol/L (3-11) Est Creatinine Clear Calc Drug Dose 50.2 ml/min Estimated GFR () 60.6 Estimated GFR (Non- 52.3 BUN/Creatinine Ratio 23.3 (10-20) Calcium Level 8.3 mg/dl (8.5-10.1) Total Bilirubin 1.6 mg/dl (0.2-1) Direct Bilirubin 0.4 mg/dl (0-0.2) Aspartate Amino Transf (AST/SGOT) 40 U/L (15-37) Alanine Aminotransferase (ALT/SGPT) 29 U/L (12-78) Alkaline Phosphatase 90 U/L (45-117) Total Creatine Kinase 303 U/L (39-308) Troponin I 0.033 ng/ml (0-0.045) Total Protein 6.2 gm/dl (6.4-8.2) Albumin 2.5 gm/dl (3.4-5.0) Lipase 137 U/L (73-393) Bedside Lactic Acid Venous 1.50 mmol/L (0.90-1.70) Urine Color DK YELLOW Urine Appearance CLEAR (CLEAR) Urine pH 5.0 (4.5-7.5) Urine Specific [place] 1.026 (1.000-1.030) Urine Protein 1+ (NEG) Urine Glucose (UA) NEG (NEG) Urine Ketones NEG (NEG) Urine Occult Blood 3+ (NEG) Urine Nitrite NEG (NEG) Urine Bilirubin NEG (NEG) Urine Urobilinogen NEG (NEG) Urine Leukocyte Esterase SMALL (NEG) Urine WBC (Auto) 10-30 /hpf (0-5) Urine RBC (Auto) >30 /hpf (0-4) Urine Hyaline Casts (Auto) 5-10 /lpf (0-5) Urine Epithelial Cells (Auto) >30 /lpf (0-5) Urine Bacteria (Auto) NEG (NEG) Laboratory results per my review. Medications Administered Medications (Trade) Dose Ordered Sig/Meño Route Start Time Stop Time Status Last Admin Dose Admin Sodium Chloride 1,000 ml @ 999 mls/hr Q1H1M STAT IV 08/01/17 19:37 08/01/17 20:37 DC 08/01/17 19:37 999 MLS/HR Morphine Sulfate (MoRPHine SULFATE INJ) 4 mg NOW STAT IV 08/01/17 19:37 08/01/17 19:40 DC 08/01/17 19:37 4 MG Ondansetron HCl (Zofran Inj) 4 mg NOW STAT IV 08/01/17 19:37 08/01/17 19:40 DC 08/01/17 19:37 4 MG Furosemide 20 mg/ Syringe 2 ml @ 4 mls/min ONE ONCE IV 08/01/17 23:15 08/01/17 23:16 DC 08/01/17 23:43 4 MLS/MIN ED Course ED COURSE: Vital signs were reviewed and showed hypoxic and hypertensive The patients medical record was reviewed The above diagnostic studies were performed and reviewed. ED treatments and interventions as stated above. 1931: The patient was evaluated in room C4. A complete history and physical examination was performed. 1936: Ordered Zofran Inj 4 mg IV, Morphine Sulfate 4 mg IV, Sodium Chloride 1000 ml @ 999 mls/hr IV. 2309: I reviewed the patient's case with Dr. Mccoy. He will evaluate the patient for further management. 2314: Ordered Furosemide 20 mg/Syringe 2 ml @ 4 mls/min IV. 6: Upon reevaluation, the patient is resting comfortably.I discussed my findings with the patient and he understands and agrees with the treatment plan. Based on the patients age, coexisting illnesses, exam and lab findings the decision to treat as an inpatient was made. The patient remained stable while under my care. The patient will be evaluated for further management. Medical Decision Differential diagnoses include major intracranial, cervical, spinal, thoracic, abdominal, pelvic and neurologic injury. Fracture, contusion, sprain, strain, laceration, abrasions included as well. Patient is an 87-year-old male who presents to ER following a mechanical fall and he was unable to get up. He laid on the floor for 3-5 hours. He complains of moderate amount of pain in the left lower extremity. He is weak and tremulous all over. Neuro exam difficult. On exam he does have some weakness in that left lower buttock favor is secondary to pain. CBC shows a mild leukocytosis of 15,000. BMP was unremarkable. T bili and direct bili were slightly elevated. Troponin was detectable but not positive. Lipase is normal. INR was therapeutic at 2.3. UA was contaminated. CT of the head, cervical spine and facial bones was unremarkable for any acute fracture. Chest x-ray does suggest pleural effusion which was seen on CT of the cervical spine. Femur and pelvis x-rays were negative. Patient was given IV fluids and morphine initially. With his pitting edema and slight hypoxia did give him a dose of Lasix. I did discuss case with internal medicine. He'll be admitted for further workup. Medication Reconcilliation Current Medication List: was personally reviewed by me Blood Pressure Screening Patient's blood pressure: Elevated blood pressure Blood pressure disposition: Referred to PCP (refer to hospitalist) Consults Time Called: 2310 Consulting Physician: Dr. Mccoy Returned Call: 2310 I reviewed the patient's case with Dr. Mccoy. He will evaluate the patient for further management. Impression Primary Impression: Fall Additional Impression: CHF (congestive heart failure) Scribe Attestation The scribe's documentation has been prepared under my direction and personally reviewed by me in its entirety. I confirm that the note above accurately reflects all work, treatment, procedures, and medical decision making performed by me. Departure Information Dispostion Being Evaluated By Hospitalist Referrals No Doctor, Assigned (PCP) Patient Instructions [facility] Problem Qualifiers Primary Impression: Fall Encounter type: initial encounter Qualified Codes: W19.XXXA - Unspecified fall, initial encounter Additional Impression: CHF (congestive heart failure) Heart failure type: unspecified Heart failure chronicity: unspecified Qualified Codes: I50.9 - Heart failure, unspecified
[2017-08-02] MEDS: NITROGLYCERIN 2% OINTMENT 30GM TUBE EXT SCH ×4 (03:21→20:19)
[2017-08-02] MEDS: PANTOprazole SOD 40 MG TAB PO SCH (08:31)
[2017-08-02] MEDS: VALSARTAN 80 MG TAB PO SCH (08:31)
[2017-08-02] MEDS: CLOPIDOGREL BISULFATE 75 MG TAB PO SCH (08:31)
[2017-08-02] MEDS: POTASSIUM CHLORIDE 20 MEQ TABCR PO SCH (08:31)
[2017-08-02] MEDS: CARVEDILOL 12.5 MG TAB PO SCH ×2 (08:32→20:19)
[2017-08-02] MEDS: IPRATROPIUM BROMIDE/ALBUTEROL respimat INH INH SCH ×4 (08:32→21:00)
[2017-08-02 08:36] LABS: HEMATOCRIT 43.8 % (42-52); HEMOGLOBIN 14.9 g/dL (14.0-18.0); MEAN CORPUSCULAR HEMOGLOBIN 31.3 pg (25-34); MEAN PLATELET VOLUME 9.9 fL (7.4-10.4); PLATELET COUNT 175 K/uL (130-400); RED CELL DISTRIBUTION WIDTH CV 14.5 % (11.5-14.5); RED CELL DISTRIBUTION WIDTH SD 48.9 fL (36.4-46.3); WHITE BLOOD COUNT 15.83 K/uL (4.8-10.8)
[2017-08-02] MEDS ORDERED: FUROSEMIDE 40 MG TAB PO SCH (09:00)
[2017-08-02] MEDS ORDERED: FUROSEMIDE INJ 40 MG in SYRINGE 0 ML IV SCH (09:00)
[2017-08-02 09:07] LABS: CALCIUM 8.1 mg/dl (8.5-10.1); CREATININE 1.06 mg/dl (0.60-1.40); POTASSIUM 4.1 mmol/L (3.5-5.1)
--- NOTE | 2017-08-02 09:09 | CARDIOLOGY CONSULTATION ---
DATE OF CONSULTATION: 08/02/2017 TIME: 08:11 a.m. CONSULTING PHYSICIAN: Dr. Zarate. REASON FOR CONSULTATION: Elevated troponin and CHF. PRIMARY CLINICAL FELLOW: Dr. Santiago Hernandez. HISTORY OF PRESENT ILLNESS: Mr. Mckinney is a pleasant 87-year-old gentleman with a history significant for multivessel CAD status post CABG x3 in 1999, mitral valve repair, diastolic CHF, paroxysmal atrial flutter, hypertension, and dyslipidemia. He was admitted to [facility] after having a fall at home. He has fallen twice in the past 1 year. The other episode was approximately 1 year ago. Yesterday, he was reaching for something lost his balance and fell. He states that his arms and his legs then became weak and he was unable to help himself off the floor. He was able to call for his daughter, but estimates that he laid on the floor for approximately 3 minutes. He denies any syncope, near syncope, or palpitations. He has chronic dyspnea with exertion, but denies any acute worsening. He denies shortness of breath at rest or orthopnea/PND. He does experience chest discomfort periodically for the past several years. The chest discomfort typically occurs on the left side of his chest and occurs at rest and resolves within 10-15 minutes after taking nitroglycerin. He had 2 episodes on consecutive days in early July, but has not had any since then. He did not have any chest discomfort yesterday and denies any exertional chest pain. He has not identified any trigger for his rest pain. This was apparently discussed with him in the outpatient setting when he was last evaluated in cardiology office on 07/22/2017 and he apparently at that time stated that he did not wish to undergo any further workup for this atypical chest pain. He states that he feels at his baseline. He has lower extremity edema and states that it is no worse than usual. He maintains a low sodium diet and checks his weight on a daily basis. His weight has been stable according to him. In the Emergency Department, he was evaluated and felt to be hypervolemic. He was admitted and started on intravenous diuretic therapy. He received 20 mg IV and then was scheduled for 40 mg IV twice daily. At home, he takes 40 mg once a day and can take an additional 40 mg as needed for increased edema. He states that he believes he takes the extra dose approximately once per month. He denies fevers, chills, abdominal pain, diarrhea, melena, hematochezia, hematuria, or other bleeding. He did have some vomiting several days ago, but that has since resolved. He has maintained adequate oral intake according to his report. REVIEW OF SYSTEMS: As above. Review of systems is otherwise negative/unremarkable. PAST MEDICAL HISTORY: 1. Multivessel CAD, status post CABG x3 in 1999 consisting of a MCGRATH to LAD, SVG to ramus and SVG to RCA. 2. Mitral valve repair in 1999. 3. Hypertension. 4. Dyslipidemia. 5. Paroxysmal atrial flutter on anticoagulation therapy. 6. Chronic diastolic CHF. 7. LVH. 8. Wide-complex tachycardia (thought to be nonsustained VT versus atrial fibrillation with aberrancy). 9. COPD. 10. Anticoagulation. 11. BPH. 12. History of peptic ulcer. 13. Status post abdominal surgery. HOME MEDICATIONS: Include, 1. Lasix 40 mg daily with additional 40 mg as needed. 2. Carvedilol 25 mg in the morning and 12.5 mg in the evening. 3. Atorvastatin 40 mg daily. 4. Advair Diskus. 5. Plavix 75 mg daily. 6. Valsartan 80 mg daily. 7. Coumadin. INPATIENT MEDICATIONS: Include, 1. Lasix 40 mg IV b.i.d. 2. Carvedilol 12.5 mg twice daily. 3. Plavix 75 mg daily. 4. Atorvastatin 40 mg at bedtime. 5. Protonix 40 mg daily. 6. Potassium chloride 20 mEq daily. 7. Diovan 80 mg daily. 8. Coumadin. ALLERGIES: LISTED ASPIRIN, BLACK PEPPER, LISINOPRIL AND SULFA. SOCIAL HISTORY: Quit smoking years ago. No alcohol. Lives at home alone. He is a . Two children. Currently, alone in his hospital room. He has worked various jobs throughout his life. FAMILY HISTORY: His father had coronary artery disease. PHYSICAL EXAMINATION: VITAL SIGNS: Temperature 36.5 degrees, heart rate 82 beats per minute, respiratory rate 19, blood pressure 118/69 mmHg, and oxygen saturation 100% on 2 liters per nasal cannula. I's and O's suggest that he is positive 780 mL today, but he has not yet received 40 mg of Lasix. Weight 88.9 kg. GENERAL: No acute distress. He is alert and oriented x3. HEENT: Anicteric sclerae. NECK: Elevated JVD. No bruits. Normal carotid upstrokes bilaterally. CARDIAC EXAMINATION: PMI was nonpalpable. There was no ventricular heave. Regular, normal S1 and S2. There were no audible murmurs, rubs or gallops. LUNGS: Clear to auscultation bilaterally. ABDOMEN: Soft, nontender, and nondistended. Normoactive bowel sounds. No bruits noted. Abdominal hernia noted and was easily reducible. EXTREMITIES: 2+ radial pulses bilaterally. 2+ dorsalis pedis pulses bilaterally. 2+ tense bilateral lower extremity edema to the knee and 1+ bilateral lower extremity edema to the hips. No cyanosis. No palpable cords. The edema is in his bilateral lower extremities. PSYCHIATRIC: Affect appears appropriate. LABORATORY DATA: Sodium 138, potassium 3.9, BUN 29, and creatinine 1.24. AST 40 and ALT 29. Troponin 0.059. Albumin 2.5. White blood cell count is 15.35, hemoglobin 15.8, and platelets 201. INR is 2.3. Chest x-ray image personally reviewed. No obvious infiltrate. Small bilateral pleural effusions. Increased vascular prominence. Radiology has reported this as pulmonary vascular prominence. Small bilateral pleural effusions. Urine culture is pending. ECG on presentation personally reviewed. ECG demonstrated atrial flutter with a rate of [address]-T wave abnormality. Telemetry personally reviewed. No ventricular arrhythmia. Heart rate well controlled. When compared to prior ECG on 03/09/2017, atrial flutter persists. PVCs no longer present. Most recent echo report reviewed. Echo on 04/16/2016 reported normal left ventricular size and systolic function. EF 60%-65%. Normal wall motion. Sclerotic aortic valve without stenosis. Mild LVH. ASSESSMENT AND PLAN: 1. Chronic diastolic congestive heart failure: He does appear to be hypervolemic. Agree with intravenous diuretics. Monitor renal function closely as well as electrolytes. Would aim for a goal of approximately 1 liter negative fluid balance today. Monitor strict I's and O's and daily weights. 2. Elevated troponin: His troponin is only slightly elevated and is not diagnostic of myocardial infarction. Can follow troponin levels until they peak. He did not present with chest discomfort, although he does have a history of atypical chest discomfort over the past several years. No ischemic evaluation recommended at this time as an inpatient. He apparently declined this as an outpatient. There is no indication for urgent cardiac catheterization. 3. Atrial flutter: He is in atrial flutter today and was also in his last ECG in March of 2017. Continue anticoagulation for stroke risk reduction. Continue beta ivy for rate control. At home, he takes 25 mg of carvedilol in the morning and therefore, his hospital medication list will be adjusted. 4. Fall. This appears to be more of a mechanical issue. As per primary service. 5. Hypertension: Blood pressure adequately controlled. Continue home medications. He was more hypertensive yesterday, but it is blood pressure has improved overnight and in the etl analyst developer hours. We will resume his normal dose of carvedilol. 6. Multivessel coronary artery disease status post coronary artery bypass graft x3: No angina. Does have atypical chest pain, but no chest pain for several weeks. Continue high intensity statin therapy, antiplatelet therapy, and beta ivy. No further evaluation at this time for his coronary artery disease as noted above. An echocardiogram has been ordered by the primary service and is currently pending. 7. Disposition: Dr. Hernandez is currently away from the hospital. Please call on-call hardboard coating machine operator for [facility] over the weekend if there are any questions or concerns. Thank for allowing me to participate in the care of Mr. Mckinney. Sincerely,
[2017-08-02] MEDS ORDERED: WARFARIN SOD 5 MG TAB PO SCH (16:00)
--- NOTE | 2017-08-02 16:00 | ECHOCARDIOGRAM REPORT ---
*NOTICE TO RECEIVING [employer] This information is strictly Confidential and protected under [place] law. [place] law prohibits you from making any further disclosure of this information unless further disclosure is expressly permitted by the written consent of the person to whom it pertains or is authorized by law. A general authorization for the release of medical or other information is not sufficient for this purpose. Hospital accepts no responsibility if the information is made available to any other person, INCLUDING THE PATIENT. Interpretation Summary * Name: GENE WOLFE Study Date: 08/02/2017 02:54 PM BP: 103/49 mmHg * Patient Location: [facility] HR: 84 * : 1930 (M/d/yyyy) Gender: Male Height: 71 in * Age: 87 yrs Ethnicity: [place] Weight: 208 lb * Ordering Physician: Obey Zarate * Referring Physician: Self, Referred * Performed By: Francesca Chappell RDCS * * Reason For Study: CHF * BSA: 2.1 m2 * -- Conclusions -- * Left ventricular systolic function is normal. * The right ventricular systolic function is reduced as assessed by tricuspid annular plane systolic excursion (TAPSE) (TAPSE <1.6 cm). * Aortic valve sclerosis mild, without significant aortic valvular stenosis. * Right ventricular systolic pressure is normal. * Dilated inferior vena cava with reduced collapsability with sniff indicates an elevated right atrial pressure of 15 mmHg * Compared to an echocardiogram from 04/16/2016, the pulmonary pressures are now estimated to be normal Procedure Details * A complete two-dimensional transthoracic echocardiogram was performed (2D, M-mode, Doppler and color flow Doppler). Left Ventricle * The left ventricle is normal in size. * There is normal left ventricular wall thickness. * Ejection Fraction = 60-65%. * Left ventricular systolic function is normal. * The left ventricular wall motion is normal. Right Ventricle * The right ventricle is grossly normal size. * The right ventricular systolic function is reduced as assessed by tricuspid annular plane systolic excursion (TAPSE) (TAPSE <1.6 cm). Atria * The left atrial size is normal. * Right atrial size is normal. Mitral Valve * The mitral valve leaflets appear thickened, but open well. * Calcified mitral apparatus. * Significant mitral regurgitation is absent. Tricuspid Valve * The tricuspid valve is not well visualized, but is grossly normal. * There is trace tricuspid regurgitation. * Right ventricular systolic pressure is normal. Aortic Valve * Aortic valve sclerosis mild, without significant aortic valvular stenosis. * No hemodynamically significant valvular aortic stenosis. * There is no significant aortic regurgitation. Great Vessels * The aortic root is normal size. Pericardium/Pleural * There is no pericardial effusion. Great Vessels * Dilated inferior vena cava with reduced collapsability with sniff indicates an elevated right atrial pressure of 15 mmHg MMode 2D Measurements and Calculations IVSd 0.99 cm LVIDd 4.2 cm LVIDs 2.8 cm LVPWd 0.98 cm IVS/LVPW 1.0 FS 33.2 % EDV(Teich) 77.7 ml ESV(Teich) 29.4 ml EF(Teich) 62.2 % EDV(cubed) 73.0 ml ESV(cubed) 21.8 ml EF(cubed) 70.2 % LV mass(C)d 133.1 grams LV mass(C)dI 62.1 grams/m\S\2 SV(Teich) 48.3 ml SI(Teich) 22.5 ml/m\S\2 SV(cubed) 51.2 ml SI(cubed) 23.9 ml/m\S\2 Ao root diam 3.3 cm Ao root area 8.7 cm\S\2 ACS 1.7 cm LA dimension 3.3 cm asc Aorta Diam 3.2 cm LA/Ao 10 LVOT diam 2.0 cm LVOT area 3.3 cm\S\2 LVAd ap4 26.4 cm\S\2 LVLd ap4 8.0 cm EDV(MOD-sp4) 74.0 ml EDV(sp4-el) 74.4 ml LVAs ap4 14.9 cm\S\2 LVLs ap4 6.8 cm ESV(MOD-sp4) 28.4 ml ESV(sp4-el) 27.7 ml EF(MOD-sp4) 61.6 % EF(sp4-el) 62.8 % LVAd ap2 27.7 cm\S\2 LVLd ap2 7.5 cm EDV(MOD-sp2) 85.4 ml EDV(sp2-el) 86.7 ml LVAs ap2 16.0 cm\S\2 LVLs ap2 6.5 cm ESV(MOD-sp2) 32.5 ml ESV(sp2-el) 33.5 ml EF(MOD-sp2) 61.9 % EF(sp2-el) 61.4 % LVLd %diff -6.21 % EDV(MOD-bp) 82.3 ml LVLs %diff -4.51 % ESV(MOD-bp) 30.9 ml EF(MOD-bp) 62.4 % SV(MOD-sp4) 45.6 ml SI(MOD-sp4) 21.3 ml/m\S\2 SV(MOD-sp2) 52.9 ml SI(MOD-sp2) 24.7 ml/m\S\2 SV(MOD-bp) 51.4 ml SI(MOD-bp) 24.0 ml/m\S\2 SV(sp4-el) 46.7 ml SI(sp4-el) 21.8 ml/m\S\2 SV(sp2-el) 53.3 ml SI(sp2-el) 24.8 ml/m\S\2 Doppler Measurements and Calculations MV E max delbert 164.7 cm/sec MV V2 max 205.6 cm/sec MV max PG 16.9 mmHg MV V2 mean 110.9 cm/sec MV mean PG 6.0 mmHg MV V2 VTI 38.7 cm MV dec time 0.23 sec Ao V2 max 148.8 cm/sec Ao max PG 8.9 mmHg Ao max PG (full) 4.9 mmHg KARMEN(V,A) 2.2 cm\S\2 KARMEN(V,D) 2.2 cm\S\2 LV V1 max PG 3.9 mmHg LV V1 max 99.2 cm/sec PA V2 max 82.4 cm/sec PA max PG 2.7 mmHg PA acc slope 511.0 cm/sec\S\2 PA acc time 0.11 sec TR max delbert 99.1 cm/sec PA pr(Accel) 29.9 mmHg
--- NOTE | 2017-08-02 17:24 | Progress Note ---
Subjective Date of Service: Aug 02, 2017. Subjective Pt evaluation today including: conversation w/ patient, physical exam Patient reports feeling better today. Patient has no symptoms. Problem List Medical Problems: (1) Abnormal EKG Status: Acute (2) CHF (congestive heart failure) Status: Chronic (3) COPD exacerbation Status: Acute (4) Dermatitis Status: Acute (5) Fall Status: Acute (6) Hypoxia Status: Acute (7) Hypoxia Status: Acute (8) Hypoxia Status: Acute (9) Pneumonia Status: Acute (10) Pulmonary edema Status: Acute (11) Pulmonary edema Status: Acute (12) Respiratory distress Status: Acute (13) Sepsis Status: Acute (14) Shortness of breath Status: Acute (15) SOB (shortness of breath) Status: Acute (16) Supratherapeutic INR Status: Acute (17) Weakness generalized Status: Acute Objective Vital Signs Date Time Temp Pulse Resp B/P (MAP) Pulse Ox O2 Delivery O2 Flow Rate FiO2 08/02/17 16:00 Nasal Cannula 2.0 08/02/17 15:53 37.9 68 20 89/41 (57) 96 Nasal Cannula 2.0 08/02/17 12:00 Nasal Cannula 2.0 08/02/17 11:53 36.6 84 16 103/49 (67) 97 08/02/17 08:04 36.7 82 18 130/64 (86) 95 08/02/17 08:00 Nasal Cannula 2.0 08/02/17 04:00 Nasal Cannula 2.0 08/02/17 03:38 36.5 82 19 118/69 (85) 100 Nasal Cannula 2.0 08/02/17 01:40 37.4 85 20 117/82 96 Nasal Cannula 2.0 08/02/17 00:50 83 17 94 Nasal Cannula 2.0 08/02/17 00:35 83 20 95 08/02/17 00:32 117/103 08/02/17 00:20 84 28 95 08/02/17 00:05 82 17 96 08/02/17 00:01 156/74 08/01/17 23:50 84 26 95 08/01/17 23:35 83 23 95 08/01/17 23:30 82 17 95 08/01/17 23:15 83 21 08/01/17 23:06 86 08/01/17 23:01 154/79 08/01/17 23:00 83 22 96 08/01/17 22:56 83 20 154/79 94 Nasal Cannula 2.0 08/01/17 21:00 20 141/78 96 Nasal Cannula 2.0 08/01/17 20:04 82 20 141/71 97 Nasal Cannula 08/01/17 19:43 82 08/01/17 19:27 37.4 84 24 144/77 90 Room Air Physical Exam Comments: General Appearance: WD WN Head: normocephalic Eyes: normal inspection, EOMI ENT: normal ENT inspection, pharynx normal Neck: supple, + JVD Respiratory/Chest: chest non-tender, rales at bases Cardiovascular: regular rate, rhythm, no JVD + systolic murmur (Click and slight murmur) Abdomen/GI: normal bowel sounds, non tender, soft Back: normal inspection, no CVA tenderness Extremities/Musculoskelatal: + pertinent finding (Pain with active movement of L leg - 2+ BL edema) Neurologic/Psych: 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-XII nml as tested, alert, + pertinent finding (L pronator drift may be due to muscular issue - senior network systems engineer is weak on R - diffficulty with raisinig both LEs) Skin: + pertinent finding (Stasis changes in LEs) Laboratory Results Last 24 Hours Test 08/01/17 19:22 08/01/17 20:45 08/02/17 02:11 08/02/17 08:00 Bedside Lactic Acid Venous 1.50 mmol/L Urine Color DK YELLOW Urine Appearance CLEAR Urine pH 5.0 Urine Specific [place] 1.026 Urine Protein 1+ Urine Glucose (UA) NEG Urine Ketones NEG Urine Occult Blood 3+ Urine Nitrite NEG Urine Bilirubin NEG Urine Urobilinogen NEG Urine Leukocyte Esterase SMALL Urine WBC (Auto) 10-30 /hpf Urine RBC (Auto) >30 /hpf Urine Hyaline Casts (Auto) 5-10 /lpf Urine Epithelial Cells (Auto) >30 /lpf Urine Bacteria (Auto) NEG Troponin I 0.059 ng/ml 0.073 ng/ml White Blood Count 15.83 K/uL Red Blood Count 4.76 M/uL Hemoglobin 14.9 g/dL Hematocrit 43.8 % Mean Corpuscular Volume 92.0 fL Mean Corpuscular Hemoglobin 31.3 pg Mean Corpuscular Hemoglobin Concent 34.0 g/dl RDW Standard Deviation 48.9 fL RDW Coefficient of Variation 14.5 % Platelet Count 175 K/uL Mean Platelet Volume 9.9 fL Sodium Level 140 mmol/L Potassium Level 4.1 mmol/L Chloride Level 107 mmol/L Carbon Dioxide Level 27 mmol/L Anion Gap 6.0 mmol/L Blood Urea Nitrogen 26 mg/dl Creatinine 1.06 mg/dl Est Creatinine Clear Calc Drug Dose 53.3 ml/min Estimated GFR () 73.3 Estimated GFR (Non- 63.2 BUN/Creatinine Ratio 24.7 Random Glucose 81 mg/dl Calcium Level 8.1 mg/dl Magnesium Level 2.0 mg/dl Assessment and Plan 87 y/o M Hx R CHF, HTN, paroxysmal AF, CAD, mitral stenosis post annuloplasty. Pt presents following a fall where he was on the floor for 3 hours and then managed to call his daughter to help him up. He states that his legs had given out on him leading to his fall. He c/o L hip and shoulder pain following his fall. He also states that he has been increasingly SOB recently and that his R arm has been intermittently weak. A full skeletal survey including a CT head, cervical CT and hip XR proved negative for acute abnormalities. The pt was mildly hypoxic on arrival to the ER and exhibits labored breathing on admission. A CXR and clinical exam are consistent with volume overload. He denies a productive cough or fevers, denies diarrhea or dysuria, denies head trauma following his fall. 1) Fall and weakness. Patient does reports feeling better today. Clinically he looks well, but he continues to have low BP. 2) Hypotension unsure of etiology CLINICALLY LOOKS WELL DESPITE LOW BP does have right sided heart failure maybe due to sepsis? from PNA? uti? will start on antibiotics and give small fluid bolus as BP is below 90 systolic 2) CHF - received additional Lasix in the ER - will hold lasix due to low BP. 3) HTN - holding hypertensive meds 4) Paroxysmal A flutter - cont Coreg - anticoagulated with Coumadin 5) CAD - cont ASA, Plavix, Statin, Coreg. Serial enzymes requested. Continued [facility] stay due to: abnormal vital signs, multiple IV medications needed Discharge planning: other
[2017-08-02] MEDS ORDERED: SODIUM CHLORIDE 0.9% 250ML 250 ML IV ONE (17:45)
[2017-08-02] MEDS ORDERED: LEVOFLOXACIN / D5W 750 MG in PREMIXED IN D5W 150 ML IV SCH (18:00)
[2017-08-02] MEDS ORDERED: LEVOFLOXACIN 750 MG TAB PO SCH (18:00)
[2017-08-02] MEDS: ATORVASTATIN 40 MG TAB PO SCH (20:51)
[2017-08-02] MEDS: TAMSULOSIN HCL 0.4 MG CAP PO SCH (20:52)
[2017-08-02] MEDS: FINASTERIDE 5 MG TAB PO SCH (20:52)
[2017-08-02] MEDS ORDERED: METOPROLOL TARTRATE 1 MG/ML VIAL IV STA (22:40)
[2017-08-02 23:05] LABS: INFLUENZA A PCR Neg for Influ A (NEG); INFLUENZA B PCR Neg for Influ B (NEG)
[2017-08-02 23:18] LABS: BASO % 0.3 %; BASO ABS # 0.03 K/uL (0-0.2); EOS % 1.2 %; EOS ABS # 0.14 K/uL (0-0.5); HEMATOCRIT 43.9 % (42-52); HEMOGLOBIN 14.8 g/dL (14.0-18.0); IG# 0.03 K/uL (0.00-0.02); LYMPH % 7.8 %; LYMPH ABS # 0.92 K/uL (1.2-3.4); MEAN CELL VOLUME 92.4 fL (80-100); MEAN CORPUSCULAR HEMOGLOBIN 31.2 pg (25-34); MEAN CORPUSCULAR HGB CONC 33.7 g/dl (32-36); MEAN PLATELET VOLUME 9.9 fL (7.4-10.4); MONO % 7.8 %; MONO ABS # 0.91 K/uL (0.11-0.59); NEUT % 82.6 %; NEUT ABS # 9.69 K/uL (1.4-6.5); PLATELET COUNT 174 K/uL (130-400); RED CELL DISTRIBUTION WIDTH CV 14.3 % (11.5-14.5); RED CELL DISTRIBUTION WIDTH SD 49.2 fL (36.4-46.3); WHITE BLOOD COUNT 11.72 K/uL (4.8-10.8)
--- NOTE | 2017-08-02 23:36 | Progress Note ---
Progress Note Date of Service Aug 02, 2017. Progress Note contacted as the patient had worsening chills/ rigors and A flutter with elevated HR per RN noted - EKG was completed however patient had HR in the 80s at that time, suspicious for 3:1 block however will wait for confirmation - patient is asymptomatic at the time of assessment, no crackles in lungs or JVD with pitting edema in bilat LE more euvolemic than hypervolemic - influenza PCR negative and WBC count improving on repeat - CXR; questionable consolidation vs pleural effusions in bilat LL; in light of this he does have Levaquin empirically started this evening - Adding Zosyn considering his history of pseudomonal sepsis in March 2017 with assumed pulmonary source however was not completely confirmed - no cough however if able to will obtain a sputum culture - will try and repeat UA however did receive antibiotics as he did spike another temp - EKG in am ordered - will replete electrolytes accordingly with K goal of 4 and mg goal of 2 - could consider ID consult
[2017-08-02 23:45] LABS: CALCIUM 8.1 mg/dl (8.5-10.1); CREATININE 1.33 mg/dl (0.60-1.40); POTASSIUM 4.7 mmol/L (3.5-5.1)
[2017-08-02] MEDS ORDERED: ACETAMINOPHEN 500 MG TAB PO STA (23:46)
[2017-08-03] VITALS (14 sets, daily range): BP systolic 81–124; BP diastolic 42–63; PULSE 60–84; TEMP 36.5–38.5; O2SAT 92–98
[2017-08-03] MEDS ORDERED: PIPERACILL/TAZOBAC CONSULT ACTIVE PRN
[2017-08-03] MEDS ORDERED: PIPERACILL/TAZOBAC IV 3.375 GM in DEXTROSE 5% 100ML IV ONE (00:30)
[2017-08-03] MEDS: NITROGLYCERIN 2% OINTMENT 30GM TUBE EXT SCH ×4 (02:43→20:39)
[2017-08-03] MEDS ORDERED: SODIUM CHLORIDE 0.9% 500ML 500 ML IV ONE (03:15)
--- NOTE | 2017-08-03 05:17 | DIAGNOSTIC IMAGING REPORT ---
CHEST ONE VIEW PORTABLE CLINICAL HISTORY: 87 years-old Male presenting with hypoxia. TECHNIQUE: Portable upright AP view of the chest was obtained. COMPARISON: 08/01/2017. FINDINGS: Atherosclerosis of aortic arch. Cardiac silhouette enlarged though decreased from prior. Decreased pulmonary vascular prominence. Hazy bibasilar opacities, right greater than left stable to slightly decreased from prior. Small bilateral pleural effusions. Degenerative changes of the thoracic spine. Upper abdomen normal. IMPRESSION: 1. Decreased apparent cardiac enlargement. 2. Decreased volume overload. 3. Stable slight decreased hazy bibasilar opacities, right greater than left. 4. Persistent small bilateral pleural effusions. Electronically signed by: Yusuf Beasley M.D. 08/03/2017 5:16 AM Dictated Date/Time: 08/03/2017 5:15 AM
[2017-08-03] MEDS: PIPERACILL/TAZOBAC IV 3.375 GM in DEXTROSE 5% 100ML 100 ML IV SCH ×3 (06:11→22:15)
[2017-08-03 06:24] LABS: BASO % 0.2 %; BASO ABS # 0.02 K/uL (0-0.2); EOS % 0.4 %; EOS ABS # 0.05 K/uL (0-0.5); HEMATOCRIT 39.9 % (42-52); HEMOGLOBIN 13.5 g/dL (14.0-18.0); IG# 0.04 K/uL (0.00-0.02); LYMPH % 6.8 %; LYMPH ABS # 0.86 K/uL (1.2-3.4); MEAN CELL VOLUME 90.3 fL (80-100); MEAN CORPUSCULAR HEMOGLOBIN 30.5 pg (25-34); MEAN CORPUSCULAR HGB CONC 33.8 g/dl (32-36); MEAN PLATELET VOLUME 9.6 fL (7.4-10.4); MONO % 7.2 %; MONO ABS # 0.91 K/uL (0.11-0.59); NEUT % 85.1 %; NEUT ABS # 10.81 K/uL (1.4-6.5); PLATELET COUNT 142 K/uL (130-400); RED CELL DISTRIBUTION WIDTH CV 14.5 % (11.5-14.5); RED CELL DISTRIBUTION WIDTH SD 47.8 fL (36.4-46.3); WHITE BLOOD COUNT 12.69 K/uL (4.8-10.8)
--- NOTE | 2017-08-03 06:27 | DIAGNOSTIC IMAGING REPORT ---
KUB CLINICAL HISTORY: 87 years-old Male presenting with vomiting. TECHNIQUE: Single supine view of the abdomen was obtained. COMPARISON: 11/15/[address] from 05/02. FINDINGS: Nonobstructive bowel gas pattern. Moderate stool burden throughout the colon. No gross pneumoperitoneum. Allowing for bowel gas and stool, no calcifications to suggest nephrolithiasis. Degenerative changes of the spine. Partially visualized prosthetic mitral valve. Left basilar opacities with small left pleural effusion. IMPRESSION: 1. No bowel obstruction or gross free air. Moderate stool burden suggest constipation. 2. Left basilar atelectasis and small pleural effusion. Electronically signed by: Yusuf Beasley M.D. 08/03/2017 6:26 AM Dictated Date/Time: 08/03/2017 6:24 AM
[2017-08-03 06:50] LABS: INR 1.8 (0.9-1.1)
[2017-08-03 07:04] LABS: ALBUMIN 1.9 gm/dl (3.4-5.0); CALCIUM 7.7 mg/dl (8.5-10.1); CREATININE 1.24 mg/dl (0.60-1.40); POTASSIUM 4.2 mmol/L (3.5-5.1)
[2017-08-03 07:14] LABS: TOTAL PROTEIN 5.1 gm/dl (6.4-8.2)
--- NOTE | 2017-08-03 08:54 | Progress Note ---
Subjective Date of Service: Aug 03, 2017. Subjective Pt evaluation today including: conversation w/ patient, physical exam Patient reports no SOB at this time. He states eventhough he knows his bP is low, he does not feel dizzy or has malaise. Over the previous night, Patient was able to sleep flat without any SOB. Nursing states that BP is improved. Problem List Medical Problems: (1) Abnormal EKG Status: Acute (2) CHF (congestive heart failure) Status: Chronic (3) COPD exacerbation Status: Acute (4) Dermatitis Status: Acute (5) Fall Status: Acute (6) Hypoxia Status: Acute (7) Hypoxia Status: Acute (8) Hypoxia Status: Acute (9) Pneumonia Status: Acute (10) Pulmonary edema Status: Acute (11) Pulmonary edema Status: Acute (12) Respiratory distress Status: Acute (13) Sepsis Status: Acute (14) Shortness of breath Status: Acute (15) SOB (shortness of breath) Status: Acute (16) Supratherapeutic INR Status: Acute (17) Weakness generalized Status: Acute Review of Systems All Other Systems: Reviewed and Negative Objective Vital Signs Date Time Temp Pulse Resp B/P (MAP) Pulse Ox O2 Delivery O2 Flow Rate FiO2 08/03/17 08:34 37.0 65 20 100/62 (75) 96 08/03/17 05:32 119/61 (80) 08/03/17 05:29 81 19 124/63 (83) 92 Room Air 08/03/17 04:41 36.6 60 20 81/48 (59) 96 Oxymask 4.0 08/03/17 04:00 Oxymask 4.0 08/03/17 03:20 86/43 (57) 08/03/17 03:12 37.0 77 22 93/47 (62) 97 4.0 08/03/17 02:39 72 21 87/42 (57) 96 Oxymask 4.0 08/03/17 02:08 82/43 (56) 08/03/17 00:02 38.5 84 22 111/49 (69) 93 4.0 08/03/17 00:01 Oxymask 4.0 08/02/17 22:26 126 127/81 (96) 96 Oxymask 4.0 08/02/17 22:20 36.4 99 35 08/02/17 22:08 32 3/2/18 21:50 63 111/44 (66) 08/02/17 20:52 61 92/44 (60) 08/02/17 20:00 Nasal Cannula 2.0 08/02/17 19:50 61 83/40 (54) 08/02/17 19:41 36.7 60 16 72/31 (45) 97 Nasal Cannula 2.0 74/31 (45) 08/02/17 16:00 Nasal Cannula 2.0 08/02/17 15:53 37.9 68 20 89/41 (57) 96 Nasal Cannula 2.0 08/02/17 12:00 Nasal Cannula 2.0 08/02/17 11:53 36.6 84 16 103/49 (67) 97 Physical Exam Comments: General Appearance: WD WN Head: normocephalic Eyes: normal inspection, EOMI ENT: normal ENT inspection, pharynx normal Neck: supple, + JVD Respiratory/Chest: chest non-tender, rales at bases Cardiovascular: regular rate, rhythm, no JVD + systolic murmur (Click and slight murmur) Abdomen/GI: normal bowel sounds, non tender, soft Back: normal inspection, no CVA tenderness Extremities/Musculoskelatal: + pertinent finding (Pain with active movement of L leg - 2+ BL edema) Neurologic/Psych: 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, alert, + pertinent finding (L pronator drift may be due to muscular issue - 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 - diffficulty with raisinig both LEs) Skin: + pertinent finding (Stasis changes in LEs) Laboratory Results Last 24 Hours Test 08/02/17 22:18 08/02/17 22:53 08/02/17 23:26 08/03/17 00:01 Influenza Type A (RT-PCR) Neg for Influ A Influenza Type B (RT-PCR) Neg for Influ B White Blood Count 11.72 K/uL Red Blood Count 4.75 M/uL Hemoglobin 14.8 g/dL Hematocrit 43.9 % Mean Corpuscular Volume 92.4 fL Mean Corpuscular Hemoglobin 31.2 pg Mean Corpuscular Hemoglobin Concent 33.7 g/dl Platelet Count 174 K/uL Mean Platelet Volume 9.9 fL Neutrophils (%) (Auto) 82.6 % Lymphocytes (%) (Auto) 7.8 % Monocytes (%) (Auto) 7.8 % Eosinophils (%) (Auto) 1.2 % Basophils (%) (Auto) 0.3 % Neutrophils # (Auto) 9.69 K/uL Lymphocytes # (Auto) 0.92 K/uL Monocytes # (Auto) 0.91 K/uL Eosinophils # (Auto) 0.14 K/uL Basophils # (Auto) 0.03 K/uL RDW Standard Deviation 49.2 fL RDW Coefficient of Variation 14.3 % Immature Granulocyte % (Auto) 0.3 % Immature Granulocyte # (Auto) 0.03 K/uL Sodium Level 139 mmol/L Potassium Level 4.7 mmol/L Chloride Level 106 mmol/L Carbon Dioxide Level 27 mmol/L Anion Gap 6.0 mmol/L Blood Urea Nitrogen 38 mg/dl Creatinine 1.33 mg/dl Est Creatinine Clear Calc Drug Dose 42.4 ml/min Estimated GFR () 55.7 Estimated GFR (Non- 48.1 BUN/Creatinine Ratio 28.5 Random Glucose 89 mg/dl Calcium Level 8.1 mg/dl Magnesium Level 1.9 mg/dl Troponin I 0.045 ng/ml Lactic Acid Level 1.2 mmol/L Procalcitonin 0.29 ng/ml Urine Color YELLOW Urine Appearance CLEAR Urine pH 5.0 Urine Specific [place] 1.018 Urine Protein NEG Urine Glucose (UA) NEG Urine Ketones NEG Urine Occult Blood 1+ Urine Nitrite NEG Urine Bilirubin NEG Urine Urobilinogen NEG Urine Leukocyte Esterase TRACE Urine WBC (Auto) 5-10 /hpf Urine RBC (Auto) 0-4 /hpf Urine Hyaline Casts (Auto) 1-5 /lpf Urine Epithelial Cells (Auto) 10-20 /lpf Urine Bacteria (Auto) NEG Test 08/03/17 06:00 White Blood Count 12.69 K/uL Red Blood Count 4.42 M/uL Hemoglobin 13.5 g/dL Hematocrit 39.9 % Mean Corpuscular Volume 90.3 fL Mean Corpuscular Hemoglobin 30.5 pg Mean Corpuscular Hemoglobin Concent 33.8 g/dl Platelet Count 142 K/uL Mean Platelet Volume 9.6 fL Neutrophils (%) (Auto) 85.1 % Lymphocytes (%) (Auto) 6.8 % Monocytes (%) (Auto) 7.2 % Eosinophils (%) (Auto) 0.4 % Basophils (%) (Auto) 0.2 % Neutrophils # (Auto) 10.81 K/uL Lymphocytes # (Auto) 0.86 K/uL Monocytes # (Auto) 0.91 K/uL Eosinophils # (Auto) 0.05 K/uL Basophils # (Auto) 0.02 K/uL RDW Standard Deviation 47.8 fL RDW Coefficient of Variation 14.5 % Immature Granulocyte % (Auto) 0.3 % Immature Granulocyte # (Auto) 0.04 K/uL Prothrombin Time 18.9 SECONDS Prothromb Time International Ratio 1.8 Sodium Level 138 mmol/L Potassium Level 4.2 mmol/L Chloride Level 107 mmol/L Carbon Dioxide Level 23 mmol/L Anion Gap 8.0 mmol/L Blood Urea Nitrogen 41 mg/dl Creatinine 1.24 mg/dl Est Creatinine Clear Calc Drug Dose 45.5 ml/min Estimated GFR () 60.6 Estimated GFR (Non- 52.3 BUN/Creatinine Ratio 33.1 Random Glucose 98 mg/dl Calcium Level 7.7 mg/dl Total Bilirubin 2.3 mg/dl Aspartate Amino Transf (AST/SGOT) 47 U/L Alanine Aminotransferase (ALT/SGPT) 27 U/L Alkaline Phosphatase 73 U/L Total Protein 5.1 gm/dl Albumin 1.9 gm/dl Globulin 3.2 gm/dl Albumin/Globulin Ratio 0.6 Assessment and Plan 87 y/o M Hx R CHF, HTN, paroxysmal AF, CAD, mitral stenosis post annuloplasty. Pt presents following a fall where he was on the floor for 3 hours and then managed to call his daughter to help him up. He states that his legs had given out on him leading to his fall. He c/o L hip and shoulder pain following his fall. He also states that he has been increasingly SOB recently and that his R arm has been intermittently weak. A full skeletal survey including a CT head, cervical CT and hip XR proved negative for acute abnormalities. The pt was mildly hypoxic on arrival to the ER and exhibits labored breathing on admission. A CXR and clinical exam are consistent with volume overload. He denies a productive cough or fevers, denies diarrhea or dysuria, denies head trauma following his fall. - Fall and weakness. Patient does reports feeling better today. Clinically he looks well, but he continues to have low BP but SBP is above 90 as compared to high 80s - Hypotension unsure of etiology CLINICALLY LOOKS WELL DESPITE LOW BP does have right sided heart failure maybe due to sepsis? from PNA? uti? will start on antibiotics and give small fluid bolus as BP is below 90 systolic will hold valsartan today. May consider to restart lasix tomorrow given his right sided dysfunction - Fever leukocytosis: On zosyn and levofloxacin. Likely pneumonia is the source. Awaiting cultures - CHF - received additional Lasix in the ER - will hold lasix due to low BP. As stated above may restart tomorrow - HTN - holding hypertensive meds, except coreg - Paroxysmal A flutter - cont Coreg - anticoagulated with Coumadin - CAD - cont ASA, Plavix, Statin, Coreg. Troponin already peaked at a relatively low level. He did not have an [place], -Mechanical fall will have PT ordered
[2017-08-03] MEDS: CARVEDILOL 12.5 MG TAB PO SCH ×2 (09:00→20:27)
[2017-08-03] MEDS: VALSARTAN 80 MG TAB PO SCH (09:00)
[2017-08-03] MEDS: IPRATROPIUM BROMIDE/ALBUTEROL respimat INH INH SCH ×4 (09:34→20:27)
[2017-08-03] MEDS: CLOPIDOGREL BISULFATE 75 MG TAB PO SCH (09:34)
[2017-08-03] MEDS: PANTOprazole SOD 40 MG TAB PO SCH (09:35)
[2017-08-03] MEDS: POTASSIUM CHLORIDE 20 MEQ TABCR PO SCH (09:35)
[2017-08-03] MEDS: LACTOBACILLUS ACIDOPHILUS (FLORANEX) TAB PO SCH ×3 (09:36→17:26)
[2017-08-03] MEDS: POLYETHYLENE (MIRALAX) 17 GM PACK PO SCH (09:41)
--- NOTE | 2017-08-03 13:49 | Cardiology Follow-Up ---
Subjective General Date of Service: Aug 03, 2017. Pt evaluation today including: conversation w/ patient, chart review, lab review, review of studies History of Present Illness The patient is a 87 year old male Allergies Coded Allergies: Aspirin (Verified Adverse Reaction, Intermediate, GI ULCERATION- WHEN TAKEN WITH COUMADIN, 08/01/17) Black Pepper (Verified Adverse Reaction, Mild, 08/01/17) Lisinopril (Verified Adverse Reaction, Mild, 08/01/17) Sulfa Antibiotics (Verified Adverse Reaction, Unknown, "SULFA DRUGS": HAS TOLERATED LASIX IN PAST, 08/01/17) Social History Smoking Status: Former Smoker Hx Tobacco Use In Past Year?: No Hx Alcohol Use - Type And Amou: No Hx Substance Use - Type And Am: No Problem List Medical Problems: (1) Abnormal EKG Status: Acute (2) CHF (congestive heart failure) Status: Chronic (3) COPD exacerbation Status: Acute (4) Dermatitis Status: Acute (5) Fall Status: Acute (6) Hypoxia Status: Acute (7) Hypoxia Status: Acute (8) Hypoxia Status: Acute (9) Pneumonia Status: Acute (10) Pulmonary edema Status: Acute (11) Pulmonary edema Status: Acute (12) Respiratory distress Status: Acute (13) Sepsis Status: Acute (14) Shortness of breath Status: Acute (15) SOB (shortness of breath) Status: Acute (16) Supratherapeutic INR Status: Acute (17) Weakness generalized Status: Acute Review of Systems Respiratory: No cough, No shortness of breath, No dyspnea at rest Cardiac: + edema, No chest pain, No palpitations Additional ROS Details: Nausea and dizziness and hypotension last night Physical Exam Vital Signs Last Vital Signs Documentation Date Time Temp Pulse Resp B/P (MAP) Pulse Ox O2 Delivery O2 Flow Rate FiO2 08/03/17 12:41 37.0 70 20 91/45 (60) 98 Nasal Cannula 08/03/17 12:00 2.0 Physical Exam Constitutional: General Apperance: heathly-appearing Level of Distress: NAD Lungs: Respiratory effort: no dyspnea Auscultation: CTA except as noted, no wheezing, no rales/crackles, no rhonchi Cardiovascular: Heart Auscultation: RRR, no murmurs, no rubs Abdomen: Bowel Sounds: normal Inspection & Palpation: no tenderness, guarding & rebound, distended Extremities: edema (modertae pitting edema) Assessment and Plan Assessment and Plan PAST MEDICAL HISTORY: 1. Multivessel CAD, status post CABG x3 in 1999 consisting of a MCGRATH to LAD, SVG to ramus and SVG to RCA. 2. Mitral valve repair in 1999. 3. Hypertension. 4. Dyslipidemia. 5. Chronic atrial flutter on anticoagulation therapy. 6. Chronic diastolic CHF. 7. LVH. 8. Wide-complex tachycardia (thought to be nonsustained VT versus atrial fibrillation with aberrancy). 9. COPD. He had diastolic and right sided CHF I would stop valsartan to give us more blood pressure room to maintain coreg at current dose and restart lasix and/or Aldactone with right sided dysfunction Chronic flutter rate control and AC Laboratory Results Last 24 Hours Test 08/02/17 22:18 08/02/17 22:53 08/02/17 23:26 08/03/17 00:01 Influenza Type A (RT-PCR) Neg for Influ A Influenza Type B (RT-PCR) Neg for Influ B White Blood Count 11.72 K/uL Red Blood Count 4.75 M/uL Hemoglobin 14.8 g/dL Hematocrit 43.9 % Mean Corpuscular Volume 92.4 fL Mean Corpuscular Hemoglobin 31.2 pg Mean Corpuscular Hemoglobin Concent 33.7 g/dl Platelet Count 174 K/uL Mean Platelet Volume 9.9 fL Neutrophils (%) (Auto) 82.6 % Lymphocytes (%) (Auto) 7.8 % Monocytes (%) (Auto) 7.8 % Eosinophils (%) (Auto) 1.2 % Basophils (%) (Auto) 0.3 % Neutrophils # (Auto) 9.69 K/uL Lymphocytes # (Auto) 0.92 K/uL Monocytes # (Auto) 0.91 K/uL Eosinophils # (Auto) 0.14 K/uL Basophils # (Auto) 0.03 K/uL RDW Standard Deviation 49.2 fL RDW Coefficient of Variation 14.3 % Immature Granulocyte % (Auto) 0.3 % Immature Granulocyte # (Auto) 0.03 K/uL Sodium Level 139 mmol/L Potassium Level 4.7 mmol/L Chloride Level 106 mmol/L Carbon Dioxide Level 27 mmol/L Anion Gap 6.0 mmol/L Blood Urea Nitrogen 38 mg/dl Creatinine 1.33 mg/dl Est Creatinine Clear Calc Drug Dose 42.4 ml/min Estimated GFR () 55.7 Estimated GFR (Non- 48.1 BUN/Creatinine Ratio 28.5 Random Glucose 89 mg/dl Calcium Level 8.1 mg/dl Magnesium Level 1.9 mg/dl Troponin I 0.045 ng/ml Lactic Acid Level 1.2 mmol/L Procalcitonin 0.29 ng/ml Urine Color YELLOW Urine Appearance CLEAR Urine pH 5.0 Urine Specific [place] 1.018 Urine Protein NEG Urine Glucose (UA) NEG Urine Ketones NEG Urine Occult Blood 1+ Urine Nitrite NEG Urine Bilirubin NEG Urine Urobilinogen NEG Urine Leukocyte Esterase TRACE Urine WBC (Auto) 5-10 /hpf Urine RBC (Auto) 0-4 /hpf Urine Hyaline Casts (Auto) 1-5 /lpf Urine Epithelial Cells (Auto) 10-20 /lpf Urine Bacteria (Auto) NEG Test 08/03/17 06:00 White Blood Count 12.69 K/uL Red Blood Count 4.42 M/uL Hemoglobin 13.5 g/dL Hematocrit 39.9 % Mean Corpuscular Volume 90.3 fL Mean Corpuscular Hemoglobin 30.5 pg Mean Corpuscular Hemoglobin Concent 33.8 g/dl Platelet Count 142 K/uL Mean Platelet Volume 9.6 fL Neutrophils (%) (Auto) 85.1 % Lymphocytes (%) (Auto) 6.8 % Monocytes (%) (Auto) 7.2 % Eosinophils (%) (Auto) 0.4 % Basophils (%) (Auto) 0.2 % Neutrophils # (Auto) 10.81 K/uL Lymphocytes # (Auto) 0.86 K/uL Monocytes # (Auto) 0.91 K/uL Eosinophils # (Auto) 0.05 K/uL Basophils # (Auto) 0.02 K/uL RDW Standard Deviation 47.8 fL RDW Coefficient of Variation 14.5 % Immature Granulocyte % (Auto) 0.3 % Immature Granulocyte # (Auto) 0.04 K/uL Prothrombin Time 18.9 SECONDS Prothromb Time International Ratio 1.8 Sodium Level 138 mmol/L Potassium Level 4.2 mmol/L Chloride Level 107 mmol/L Carbon Dioxide Level 23 mmol/L Anion Gap 8.0 mmol/L Blood Urea Nitrogen 41 mg/dl Creatinine 1.24 mg/dl Est Creatinine Clear Calc Drug Dose 45.5 ml/min Estimated GFR () 60.6 Estimated GFR (Non- 52.3 BUN/Creatinine Ratio 33.1 Random Glucose 98 mg/dl Calcium Level 7.7 mg/dl Total Bilirubin 2.3 mg/dl Aspartate Amino Transf (AST/SGOT) 47 U/L Alanine Aminotransferase (ALT/SGPT) 27 U/L Alkaline Phosphatase 73 U/L Total Protein 5.1 gm/dl Albumin 1.9 gm/dl Globulin 3.2 gm/dl Albumin/Globulin Ratio 0.6
[2017-08-03] MEDS: WARFARIN SOD 2.5 MG TAB PO SCH (17:28)
[2017-08-03] MEDS ORDERED: LEVOFLOXACIN / D5W 750 MG in PREMIXED IN D5W 150 ML IV SCH ×2 (18:00→20:00)
[2017-08-03] MEDS: TAMSULOSIN HCL 0.4 MG CAP PO SCH (20:28)
[2017-08-03] MEDS: ATORVASTATIN 40 MG TAB PO SCH (20:28)
[2017-08-03] MEDS: FINASTERIDE 5 MG TAB PO SCH (20:28)
[2017-08-04] MEDS: NITROGLYCERIN 2% OINTMENT 30GM TUBE EXT SCH ×4 (03:00→21:00)
[2017-08-04 03:54] VITALS: BP 103/48; PULSE 66; TEMP 37.3; O2SAT 96
[2017-08-04] MEDS: PIPERACILL/TAZOBAC IV 3.375 GM in DEXTROSE 5% 100ML 100 ML IV SCH ×2 (06:06→13:02)
[2017-08-04 06:46] LABS: INR 2.4 (0.9-1.1)
[2017-08-04 08:26] VITALS: BP 95/48; PULSE 62; TEMP 36.6; O2SAT 97
[2017-08-04] MEDS: PANTOprazole SOD 40 MG TAB PO SCH (08:27)
[2017-08-04] MEDS: LACTOBACILLUS ACIDOPHILUS (FLORANEX) TAB PO SCH ×3 (08:27→15:55)
[2017-08-04] MEDS: POTASSIUM CHLORIDE 20 MEQ TABCR PO SCH (08:28)
[2017-08-04] MEDS: CLOPIDOGREL BISULFATE 75 MG TAB PO SCH (08:28)
[2017-08-04] MEDS: IPRATROPIUM BROMIDE/ALBUTEROL respimat INH INH SCH ×4 (08:29→20:19)
[2017-08-04] MEDS: POLYETHYLENE (MIRALAX) 17 GM PACK PO SCH (08:29)
[2017-08-04] MEDS: CARVEDILOL 12.5 MG TAB PO SCH ×2 (08:37→20:20)
[2017-08-04 12:28] VITALS: BP 100/49; PULSE 63; O2SAT 93
[2017-08-04] MEDS: WARFARIN SOD 2.5 MG TAB PO SCH (15:55)
[2017-08-04 16:00] VITALS: BP 116/51; PULSE 62; TEMP 36.6; O2SAT 97
[2017-08-04] MEDS ORDERED: LACTULOSE SYRUP 30 GM/45 ML UDP PO STA (17:10)
[2017-08-04 20:00] VITALS: BP 117/59; PULSE 71; TEMP 36.3; O2SAT 93
[2017-08-04] MEDS: ATORVASTATIN 40 MG TAB PO SCH (20:19)
[2017-08-04] MEDS: FINASTERIDE 5 MG TAB PO SCH (20:19)
[2017-08-04] MEDS: TAMSULOSIN HCL 0.4 MG CAP PO SCH (20:20)
--- NOTE | 2017-08-04 23:18 | Progress Note ---
Subjective Date of Service: Aug 04, 2017. Subjective Pt evaluation today including: conversation w/ patient Patient reports feeling better. He is happy to see his BP back above 100 systolic. Patient/s main complaint today is his constipation. He has not had a BM for past few days. Problem List Medical Problems: (1) Abnormal EKG Status: Acute (2) CHF (congestive heart failure) Status: Chronic (3) COPD exacerbation Status: Acute (4) Dermatitis Status: Acute (5) Fall Status: Acute (6) Hypoxia Status: Acute (7) Hypoxia Status: Acute (8) Hypoxia Status: Acute (9) Pneumonia Status: Acute (10) Pulmonary edema Status: Acute (11) Pulmonary edema Status: Acute (12) Respiratory distress Status: Acute (13) Sepsis Status: Acute (14) Shortness of breath Status: Acute (15) SOB (shortness of breath) Status: Acute (16) Supratherapeutic INR Status: Acute (17) Weakness generalized Status: Acute Review of Systems All Other Systems: Reviewed and Negative Medications Current Inpatient Medications Medications (Trade) Dose Ordered Sig/Meño Route Start Time Stop Time Status Last Admin Dose Admin Atorvastatin Calcium (Lipitor Tab) 40 mg HS PO 08/02/17 21:00 09/01/17 20:59 08/04/17 20:19 40 MG Carvedilol (Coreg Tab) 12.5 mg BID PO 08/02/17 09:00 09/01/17 08:59 08/04/17 20:20 12.5 MG Clopidogrel Bisulfate (plAVix TAB) 75 mg DAILY PO 08/02/17 09:00 09/01/17 08:59 08/04/17 08:28 75 MG Finasteride (Proscar Tab) 5 mg HS PO 08/02/17 21:00 09/01/17 20:59 08/04/17 20:19 5 MG Albuterol/ Ipratropium (Combivent Respimat Inh) 1 puffs QID INH 08/02/17 09:00 09/01/17 08:59 08/04/17 20:19 1 PUFFS Nitroglycerin (Nitrostat Tab) 0.4 mg PRN UT 08/01/17 23:45 08/31/17 23:44 Tamsulosin HCl (Flomax Cap) 0.4 mg HS PO 08/02/17 21:00 09/01/17 20:59 3/4/18 20:20 0.4 MG Warfarin Sodium (Coumadin Tab) 5 mg MoWeFr@1600 PO 08/02/17 16:00 09/01/17 15:59 08/02/17 17:10 5 MG Pantoprazole Sodium (Protonix Tab) 40 mg DAILY PO 08/02/17 09:00 09/01/17 08:59 08/04/17 08:27 40 MG Potassium Chloride (Klor-Con Tab) 20 meq QAM PO 08/02/17 09:00 09/01/17 08:59 08/04/17 08:28 20 MEQ Acetaminophen (Tylenol Tab) 650 mg Q4H PRN PO 08/02/17 00:15 09/01/17 00:14 Al Hydrox/Mg Hydrox/Simethicone (Maalox Max Susp) 15 ml Q4H PRN PO 08/02/17 00:15 09/01/17 00:14 Magnesium Hydroxide (Milk Of Magnesia Susp) 30 ml Q12H PRN PO 08/02/17 00:15 09/01/17 00:14 08/04/17 11:14 30 ML Ondansetron HCl (Zofran Inj) 4 mg Q6H PRN IV 08/02/17 00:15 09/01/17 00:14 08/03/17 05:29 4 MG Nitroglycerin (Nitroglycerin 2% Oint) 1 inch Q6H EXT 08/02/17 03:00 09/01/17 02:59 08/02/17 10:14 1 INCH Polyethylene (Miralax Powder Packet) 17 gm DAILY PRN PO 08/02/17 00:15 09/01/17 00:14 Furosemide 40 mg/ Syringe 4 ml @ 4 mls/min BID IV 08/02/17 09:00 09/01/17 08:59 Future Hold 08/02/17 08:31 4 MLS/MIN Warfarin Sodium (Coumadin Tab) 2.5 mg SuTuThSa@1600 PO 08/03/17 16:00 09/02/17 15:59 08/04/17 15:55 2.5 MG Lactobacillus Acidophilus (Floranex Tab) 4 tab TIDM PO 08/03/17 07:30 09/02/17 07:29 08/04/17 15:55 4 TAB Polyethylene (Miralax Powder Packet) 17 gm DAILY PO 08/03/17 09:00 09/02/17 08:59 08/04/17 08:29 17 GM Levofloxacin 750 mg/Prmx 150 ml @ 100 mls/hr Q48H IV 08/03/17 20:00 08/10/17 19:59 08/03/17 20:39 100 MLS/HR Objective Vital Signs Date Time Temp Pulse Resp B/P (MAP) Pulse Ox O2 Delivery O2 Flow Rate FiO2 08/04/17 20:00 36.3 71 20 117/59 (78) 93 Room Air 08/04/17 20:00 Room Air 08/04/17 16:08 Room Air 08/04/17 16:00 36.6 62 18 116/51 (72) 97 Room Air Nasal Cannula 08/04/17 12:28 63 23 100/49 (66) 93 Nasal Cannula 2.0 08/04/17 12:00 Nasal Cannula 2.0 08/04/17 08:26 36.6 62 32 95/48 (64) 97 Nasal Cannula 2.0 08/04/17 08:00 Nasal Cannula 2.0 08/04/17 04:00 Nasal Cannula 2.0 08/04/17 03:54 37.3 66 20 103/48 (66) 96 08/04/17 00:00 Nasal Cannula 2.0 08/03/17 23:31 36.8 62 16 105/48 (67) 97 Nasal Cannula 2.0 Physical Exam Comments: General Appearance: WD WN Head: normocephalic Eyes: normal inspection, EOMI ENT: normal ENT inspection, pharynx normal Neck: supple, + JVD Respiratory/Chest: chest non-tender, rales at bases Cardiovascular: regular rate, rhythm, no JVD + systolic murmur (Click and slight murmur) Abdomen/GI: normal bowel sounds, non tender, soft, abd. 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 Pt presents following a fall where he was on the floor for 3 hours and then managed to call his daughter to help him up. He states that his legs had given out on him leading to his fall. He c/o L hip and shoulder pain following his fall. He also states that he has been increasingly SOB recently and that his R arm has been intermittently weak. A full skeletal survey including a CT head, cervical CT and hip XR proved negative for acute abnormalities. The pt was mildly hypoxic on arrival to the ER and exhibits labored breathing on admission. A CXR and clinical exam are consistent with volume overload. He denies a productive cough or fevers, denies diarrhea or dysuria, denies head trauma following his fall. - Fall and weakness. Patient does reports feeling better today. Clinically he looks well, BP has improved - Hypotension unsure of etiology Resolved. BP above 110 systolic does have right sided heart failure =Held Bp meds - Fever leukocytosis: Likely pneumonia is the source. Awaiting cultures. Blood culture appears to be acontaminant. will stop zosyn as levaquin has pseudomonal coverage. - CHF - received additional Lasix in the ER - reordered lasix for tomorrow given right sided heart failure - HTN - holding hypertensive meds, except coreg - Paroxysmal A flutter - cont Coreg - anticoagulated with Coumadin. INR is therapeutic - CAD - cont ASA, Plavix, Statin, Coreg. Troponin already peaked at a relatively low level. He did not have an MA, -Mechanical fall will have PT ordered Costipation ordered lactulose.
[2017-08-05 00:03] VITALS: BP 100/45; PULSE 62; TEMP 36.6; O2SAT 95
[2017-08-05 00:25] LABS: HEMATOCRIT 39.4 % (42-52); HEMOGLOBIN 13.4 g/dL (14.0-18.0); MEAN CELL VOLUME 90.6 fL (80-100); MEAN CORPUSCULAR HEMOGLOBIN 30.8 pg (25-34); MEAN PLATELET VOLUME 9.7 fL (7.4-10.4); PLATELET COUNT 180 K/uL (130-400); RED CELL DISTRIBUTION WIDTH CV 14.4 % (11.5-14.5); WHITE BLOOD COUNT 6.98 K/uL (4.8-10.8)
[2017-08-05 00:44] LABS: CREATININE 1.17 mg/dl (0.60-1.40); POTASSIUM 4.5 mmol/L (3.5-5.1)
[2017-08-05] MEDS: NITROGLYCERIN 2% OINTMENT 30GM TUBE EXT SCH ×2 (03:00→07:39)
[2017-08-05 03:34] VITALS: BP 94/46; PULSE 63; TEMP 36.9; O2SAT 93
[2017-08-05 06:45] LABS: INR 2.4 (0.9-1.1)
--- NOTE | 2017-08-05 07:33 | Progress Note ---
Subjective Date of Service: Aug 05, 2017. Problem List Medical Problems: (1) Abnormal EKG Status: Acute (2) CHF (congestive heart failure) Status: Chronic (3) COPD exacerbation Status: Acute (4) Dermatitis Status: Acute (5) Fall Status: Acute (6) Hypoxia Status: Acute (7) Hypoxia Status: Acute (8) Hypoxia Status: Acute (9) Pneumonia Status: Acute (10) Pulmonary edema Status: Acute (11) Pulmonary edema Status: Acute (12) Respiratory distress Status: Acute (13) Sepsis Status: Acute (14) Shortness of breath Status: Acute (15) SOB (shortness of breath) Status: Acute (16) Supratherapeutic INR Status: Acute (17) Weakness generalized Status: Acute Objective Vital Signs Date Time Temp Pulse Resp B/P (MAP) Pulse Ox O2 Delivery O2 Flow Rate FiO2 08/05/17 04:00 Room Air 08/05/17 03:34 36.9 63 20 94/46 (62) 93 08/05/17 00:03 36.6 62 16 100/45 (63) 95 Room Air 08/05/17 00:00 Room Air 08/04/17 20:00 36.3 71 20 117/59 (78) 93 Room Air 08/04/17 20:00 Room Air 08/04/17 16:08 Room Air 08/04/17 16:00 36.6 62 18 116/51 (72) 97 Room Air Nasal Cannula 08/04/17 12:28 63 23 100/49 (66) 93 Nasal Cannula 2.0 08/04/17 12:00 Nasal Cannula 2.0 08/04/17 08:26 36.6 62 32 95/48 (64) 97 Nasal Cannula 2.0 08/04/17 08:00 Nasal Cannula 2.0 Laboratory Results Last 24 Hours Test 08/05/17 00:07 08/05/17 05:43 08/05/17 06:35 White Blood Count 6.98 K/uL Red Blood Count 4.35 M/uL Hemoglobin 13.4 g/dL Hematocrit 39.4 % Mean Corpuscular Volume 90.6 fL Mean Corpuscular Hemoglobin 30.8 pg Mean Corpuscular Hemoglobin Concent 34.0 g/dl RDW Standard Deviation 48.0 fL RDW Coefficient of Variation 14.4 % Platelet Count 180 K/uL Mean Platelet Volume 9.7 fL Sodium Level 141 mmol/L Potassium Level 4.5 mmol/L Chloride Level 108 mmol/L Carbon Dioxide Level 30 mmol/L Anion Gap 3.0 mmol/L Blood Urea Nitrogen 32 mg/dl Creatinine 1.17 mg/dl Est Creatinine Clear Calc Drug Dose 48.2 ml/min Estimated GFR () 65.0 Estimated GFR (Non- 56.1 BUN/Creatinine Ratio 27.4 Random Glucose 101 mg/dl Calcium Level 8.0 mg/dl Prothrombin Time 24.3 SECONDS Prothromb Time International Ratio 2.4 Bedside Glucose 94 mg/dl Assessment and Plan 87 y/o M Hx R CHF, HTN, paroxysmal AF, CAD, mitral stenosis post annuloplasty. Pt presents following a fall where he was on the floor for 3 hours and then managed to call his daughter to help him up. He states that his legs had given out on him leading to his fall. He c/o L hip and shoulder pain following his fall. He also states that he has been increasingly SOB recently and that his R arm has been intermittently weak. A full skeletal survey including a CT head, cervical CT and hip XR proved negative for acute abnormalities. The pt was mildly hypoxic on arrival to the ER and exhibits labored breathing on admission. A CXR and clinical exam are consistent with volume overload. He denies a productive cough or fevers, denies diarrhea or dysuria, denies head trauma following his fall. - Fall and weakness. Patient does reports feeling better today. Clinically he looks well, BP has improved - Hypotension unsure of etiology Resolved. BP above 110 systolic does have right sided heart failure =Held Bp meds - Fever leukocytosis: Likely pneumonia is the source. Awaiting cultures. Blood culture appears to be acontaminant. will stop zosyn as levaquin has pseudomonal coverage. - CHF - received additional Lasix in the ER - reordered lasix for tomorrow given right sided heart failure - HTN - holding hypertensive meds, except coreg - Paroxysmal A flutter - cont Coreg - anticoagulated with Coumadin. INR is therapeutic - CAD - cont ASA, Plavix, Statin, Coreg. Troponin already peaked at a relatively low level. He did not have an [place], -Mechanical fall will have PT ordered Costipation ordered lactulose. Continued [facility] stay due to: abnormal vital signs, multiple IV medications needed Discharge planning: other
[2017-08-05 07:37] VITALS: BP 136/77; PULSE 77; TEMP 36.7; O2SAT 95
[2017-08-05] MEDS: IPRATROPIUM BROMIDE/ALBUTEROL respimat INH INH SCH ×2 (07:40→12:33)
[2017-08-05] MEDS: POTASSIUM CHLORIDE 20 MEQ TABCR PO SCH (07:40)
[2017-08-05] MEDS: PANTOprazole SOD 40 MG TAB PO SCH (07:41)
[2017-08-05] MEDS: LACTOBACILLUS ACIDOPHILUS (FLORANEX) TAB PO SCH ×2 (07:41→12:33)
[2017-08-05] MEDS: POLYETHYLENE (MIRALAX) 17 GM PACK PO SCH (07:41)
[2017-08-05] MEDS: CLOPIDOGREL BISULFATE 75 MG TAB PO SCH (07:41)
[2017-08-05] MEDS: CARVEDILOL 12.5 MG TAB PO SCH (07:41)
--- NOTE | 2017-08-05 08:15 | Clinical Documentation Query ---
QUERY 1 OF [address] EDGAR, In your clinical opinion is this patient being managed for: ( ) suspected/possible pseudomonal Pneumonia, POA ( ) suspected/possible pseudomonal Pneumonia, not POA ( ) Not Agree ( ) Other explanation of clinical findings (Please Explain) ( ) Unable to determine (Please Define) ( ) Need to Discuss The medical record reflects the following clinical findings, treatment, and risk factors. Clinical Indicators: 87 yo male presenting after a fall. Also reportedly with increasing dyspnea, noted to be hypoxic in ER with sat of 90% on RA described as having labored breathing. WBC 15.35. Several progress notes indicate pt with hx of pseudomonal sepsis from presumed pulmonary source in Mar and 2016 as well as notation of levaquin providing pseudomonal coverage. Treatment: O2 support, CXR, IV levaquin, IV zosyn Risk Factors: age, hx of pseudomonal sepis, CHF QUERY 2 OF 4 In your clinical opinion is this patient being managed for: ( ) Acute on chronic diastolic CHF ( ) Not Agree ( ) Other explanation of clinical findings (Please Explain) ( ) Unable to determine (Please Define) ( ) Need to Discuss The medical record reflects the following clinical findings, treatment, and risk factors. Clinical Indicators:Presented with "CHF". Described as being hypervolemic initially and having labored breathing. Initial CXR: Cardiomegaly with pulmonary vascular prominence and suspected mild pulmonary edema with small bilateral pleural effusions. 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 Clinical Indicators: Inital Cr 1.24 which initially trended up to 1.33 then has been trending downward (currently 1.17). Review of historical Cr showed range of 0.61-0.97 at baseline. Review of historical GFR showed range of 68.3-91.1 over the past year Treatment: monitor PRP, initially had IV fluids, held BP meds and small fluid boluses for hypotension Risk Factors: age, A flutter, chronic diastolic CHF, CAD, IV Lasix for acute diastolic CHF QUERY 4 OF 4 In your clinical opinion is this patient being managed for: ( ) Urinary tract infection ( ) Not Agree ( ) Other explanation of clinical findings (Please Explain) ( ) Unable to determine (Please Define) ( ) Need to Discuss The medical record reflects the following clinical findings, treatment, and risk factors. Clinical Indicators: UA cx prelim results with strep species. Treatment:currently IV levaquin, prior IV zosyn, sensitivities are pending Risk Factors: age, CHF, HTN, Please clarify and document your clinical opinion in the progress notes and discharge summary. Terms such as "probable", "suspected", "likely", "questionable", "possible", or "still to be ruled out" are acceptable. IF IN AGREEMENT, YOU MUST DOCUMENT ABOVE DIAGNOSTIC STATEMENT IN DAILY PROGRESS NOTES AND DISCHARGE SUMMARY. This document is not part of the patient's record. Thank You, Corinne Hernandez, RN [phone]
[2017-08-05] MEDS ORDERED: FUROSEMIDE 40 MG TAB PO SCH (09:00)
--- NOTE | 2017-08-05 09:21 | CARDIOLOGY PROGRESS NOTE ---
DATE: 08/05/2017 TIME: 8:38 a.m. SUBJECTIVE: He has developed diarrhea after taking lactulose yesterday. He had several episodes overnight. He denies shortness of breath, syncope, near syncope, palpitations or chest pain. He states that he has "lots of swelling." Over the weekend, his diuretic therapy was held secondary to hypotension. He received 1 dose of 40 mg of IV Lasix on 08/02/2017 and then did not receive another dose of Lasix until this morning, at which point he received 40 mg of p.o. Lasix. Dr. Gore discontinued Valsartan over the weekend and the last dose was given on 08/02/2017. This was discontinued secondary to hypotension, so that he could receive the diuretics. OBJECTIVE: VITAL SIGNS: Temperature 36.7 degrees, heart rate 77 beats per minute, respiration rate 22, blood pressure 136/77 mmHg and overall his blood pressure has improved in the last 24 hours. Oxygen saturation 95% on room air. I's and O's negative 192 mL yesterday, weight is 92.2 kg. GENERAL: No acute distress. He is alert. NECK: No appreciable JVD, sitting upright. CARDIAC EXAMINATION: No ventricular heave. Regular, normal S1, S2. There were no audible murmurs, rubs or gallops. LUNGS: Clear to auscultation bilaterally without wheezes, rales, or rhonchi, but overall decreased breath sounds. ABDOMEN: Soft, nontender, nondistended. Normoactive bowel sounds. EXTREMITIES: 2+ pitting edema bilateral lower extremities to the knees and 1+ above the knees. No cyanosis. PSYCHIATRIC: Affect appears appropriate. MEDICATIONS: Include Lasix 40 mg p.o. daily, Plavix 75 mg daily, carvedilol 12.5 mg p.o. b.i.d., atorvastatin 40 mg daily, levofloxacin 750 mg IV q. 48 hours, Protonix 40 mg daily, potassium chloride 20 mEq daily, Coumadin. Telemetry personally reviewed. Atrial flutter with adequate rate control. LABORATORY DATA: White blood cell count is trending down to 6.98, hemoglobin 13.4, platelets 180. Sodium 141, potassium 4.5, BUN 32, creatinine 1.17, albumin 1.9. INR is 2.4. Chart reviewed. Echocardiogram from 08/02/2017 reported normal LV systolic function with an EF of 60%-65%. Reduced right ventricular systolic function. Dilated IVC with reduced inspiratory collapse. Sclerotic aortic valve without stenosis. ASSESSMENT AND PLAN: 1. Chronic diastolic congestive heart failure/right ventricular failure: He appears hypervolemic. His last dose of IV diuretics was on 08/02/2017. He then received 1 dose of diuretic this morning. We will give another dose of 40 mg IV Lasix today and resume Lasix on a daily basis. If he does not have adequate urine output, we would increase to 40 mg IV twice daily. We would aim for a negative fluid balance of approximately 1 liter. Check daily weights and strict I's and O's recommended. 2. Atrial flutter: He appears to be in persistent if not permanent atrial flutter: His heart rate is adequately controlled and he is asymptomatic. Continue beta ivy for rate control. Continue anticoagulation for stroke risk reduction. 3. Elevated troponin: Troponin levels were only slightly elevated and were not diagnostic of myocardial infarction. They peaked to 0.073. No further evaluation recommended at this time. 4. Hypotension: He was hypotensive over the weekend and is being treated for possible infection and his leukocytosis has resolved. I also agree with discontinuation of Valsartan given reduced right ventricular systolic function. He may continue to have edema chronically given right ventricular failure, but we will attempt diuresis and monitor renal function closely. 5. Disposition: Cardiology will continue to follow.
[2017-08-05] MEDS ORDERED: NURSING DECISION MEDICATION ORDER SCH (11:00)
[2017-08-05] MEDS ORDERED: EUCERIN CR 120 GM JAR EXT SCH (11:15)
[2017-08-05 12:00] VITALS: BP 100/51; PULSE 74; TEMP 36.4; O2SAT 95
[2017-08-05] MEDS ORDERED: FUROSEMIDE INJ 40 MG in SYRINGE 0 ML IV ONE (12:00)
[2017-08-05] MEDS ORDERED: ECRCR EXT (12:57)
[2017-08-05] MEDS ORDERED: LVQ750 PO (12:57)
--- NOTE | 2017-08-05 12:58 | Discharge Summary ---
Discharge Summary Date of Service Aug 05, 2017. Discharge Summary Admission Date: Aug 02, 2017 at 00:07 Discharge Date: Aug 05, 2017 Discharge Disposition: Rehab Principal Diagnosis: CHF exacerbation Problems/Secondary Diagnoses: Fall CHF HTN Afib, on coumadin CAD s/p CABG Mitral stenosis Hx of pseudomonas Immunizations: Have You Had Influenza Vaccine: Yes Influenza Vaccine Date: Apr 03, 2012 History of Tetanus Vaccine?: HAD IN 2011 History of Pneumococcal: HAD IN THE PAST History of Hepatitis B Vaccine: Unknown Consultations: Cardiology Medication Reconciliation New Medications: Levofloxacin (Levofloxacin) 750 Mg Tab 1 TAB PO DAILY for 10 Days, #10 Eucerin (Hydrocerin) 360 Appln/120 Gm Cr 1 APPLN EXT BID for 30 Days Continued Medications: Atorvastatin (Lipitor) 40 Mg Tab 40 MG PO HS, TAB Carvedilol (Coreg) 12.5 Mg Tab 12.5 MG PO BID, TAB Clopidogrel Bisulfate (Clopidogrel) 75 Mg Tab 75 MG PO DAILY Finasteride (Proscar) 5 Mg Tab 5 MG PO HS, TAB Furosemide (Lasix) 40 Mg Tab 40 MG PO DAILY, TAB Ipratropium-Albuterol (Combivent Respimat) 1 Aer Aer 1 PUFFS INH QID for 30 Days, #1 EA 3 Refills Nitroglycerin (Nitrostat) 0.4 Mg Tab 0.4 MG UT PRN, 0 Refills Omeprazole (Prilosec) 20 Mg Capcr 20 MG PO DAILY, 0 Refills Potassium Ext Rel (Klor-Con) 20 Meq Tabcr 20 MEQ PO QAM, TAB Tamsulosin HCl (Tamsulosin HCl) 0.4 Mg Cap 0.4 MG PO HS Warfarin Sodium (Warfarin Sodium) 5 Mg Tab 5 MG PO MWF Warfarin Sodium (Coumadin) 5 Mg Tab 2.5 MG PO 4XWK, TAB SUN,TUE,THUR,SAT Discontinued Medications: Valsartan (Diovan) 80 Mg Tab 80 MG PO DAILY, TAB Discharge Exam Pt is feeling overall improved. Still a bit weak, but better than COREMAKER. Has been able to ambulate with assistance. He started to have diarrhea s/p lactulose yesterday. It is better today. He is no longer constipated. Tolerating PO without issue. Pt denies fever, SOB, chest pain, abd pain, n/v, LE pain or swelling. Pertinent positives and negatives reviewed in HPI--all others negative Physical Exam: General Appearance: WD/WN, no apparent distress Eyes: normal inspection, sclerae normal Respiratory/Chest: normal breath sounds, no respiratory distress Cardiovascular: regular rate, rhythm, no edema Abdomen / GI: non tender, soft Extremities: no calf tenderness, no pedal edema Neurologic/Psychiatric: alert, normal mood/affect, oriented x 3 Skin: normal color, warm/dry Hospital Course 87 y/o M Hx R CHF, HTN, paroxysmal AF, CAD, mitral stenosis post annuloplasty. Pt presents following a fall where he was on the floor for 3 hours and then managed to call his daughter to help him up. He stated that his legs had given out on him leading to his fall. He c/o L hip and shoulder pain following his fall. He also stated that he has been increasingly SOB recently and that his R arm had been intermittently weak. A full skeletal survey including a CT head, cervical CT and hip XR proved negative for acute abnormalities. The pt was mildly hypoxic on arrival to the ER and with labored breathing on admission. A CXR and clinical exam are consistent with volume overload. He denies a productive cough or fevers, denies diarrhea or dysuria, denies head trauma following his fall. - Fall and weakness. Rehab placement - Hypotension during admission unsure of etiology but with borderline low BP on d/c, monitor - Fever leukocytosis: likely related to PNA Blood culture was + x1/2, appears to be contaminant. d/c'd on levaquin to complete course as outpt Abnormal UA: noted on admission and initial cx was with no growth/<1000 colonies Repeat UA with cx performed and noted to be + on d/c Pt was d/c'd on levaquin for PNA as noted which would typically cover, however sensitivities returned on 08/06 noted for MDR including levaquin [facility] called and macrobid added 100mg Q12h x7d starting 3/6 AM - CHF - cardiology recs for 40mg QD Can advance to BID if UOP is not adequate Strict I/Os at SNF, goal of neg 1L daily - HTN - medication changes as above - Paroxysmal A flutter - cont Coreg - anticoagulated with Coumadin. INR is therapeutic - CAD - cont ASA, Plavix, Statin, Coreg. Troponin trended on admission with max 0.073 Constipation Lactulose was given on 08/04 x1 and now with loose stools that are improving. Attempted to call daughter. Unable to leave message as recording stated " mailbox is full". CM did discuss with daughter Total Time Spent: Greater than 30 minutes This includes examination of the patient, discharge planning, medication reconciliation, and communication with other providers. Discharge Instructions Please refer to the electronic Patient Visit Report (Discharge Instructions) for additional information. Follow-Up Dr. Padilla later this week Heart Failure clinic as they request PCP in 1-2 weeks Additional Copies To [place]
--- NOTE | 2017-08-05 13:02 | Discharge Instructions ---
Discharge Instructions Date of Service Aug 05, 2017. Admission Reason for Admission: Chf Exacerbation, Weakness Discharge Discharge Diagnosis / Problem: CHF exacerbation Discharge Goals Goal(s): Decrease discomfort, Improve function Activity Recommendations Activity Level: Assistance Required Therapies: Physical Therapy, Occupational Therapy . Additional Information Patient informed of condition: Yes Advance Directives: Yes DNR: No Level of Care: Acute Rehab Communicable Disease: Yes Prognosis: Improving Herrera Catheter: No Instructions / Follow-Up Instructions / Follow-Up Will need to f/u with cardiology this week, Dr. Padilla Will need to f/u with Heart Failure clinic Pt had been constipated prior to d/c and was given lactulose x1 on 08/04. He has had loose bowels since that time, but it is improving. Call 911 and go to the Emergency Room if: * You have tightness or pain in your chest that does not go away with rest or Nitroglycerin * You are very short of breath even with rest Call your doctor if any of the following symptoms or problems start or get worse: * Shortness of breath or difficulty breathing * Wake up at night short of breath * Chest pain * Cough * Swelling of your hands, fee, or legs * More fatigued or tired with your normal activity * Palpitations - sudden fast heart beats WEIGHT * Weigh yourself every morning after using the bathroom. * Use the same scale. * Wear the same amount of clothing. * Write your weight down on your chart. * Call your doctor if you gain more than 2-3 pounds in 1-2 days. MEDICATIONS * Use this discharge instruction sheet for instructions. * Take your medications at the time your doctor ordered. * Do not skip a dose of your medicines. * If you miss a dose of medicine, take as soon as possible, but DO NOT DOUBLE A DOSE. * Read your medicine information when you get home. * Know all of the side effects of your medicine. * Call your doctor's office if you have any side effects. * Be sure all of your doctors know what medicine and herbs you take (including cold, flu, and herbal medicine). * Pain Medicine: If you do not get relief from your pain, please call your doctor for help. Take the following with you to your follow-up doctor appointments: * Weight Chart * Medication List * List of questions Do not drink excessive alcohol, beer or wine. Current Hospital Diet Patient's current hospital diet: AHA Diet (Heart Healthy) Discharge Diet Recommended Diet: Low Sodium Diet (2gm Na) Pending Studies Studies pending at discharge: no Physician Orders On Transfer Additional Orders: Pt will need STRICT I/Os monitored daily Goal is negative 1L daily Medical Emergencies . Who to Call and When: Medical Emergencies: If at any time you feel your situation is an emergency, please call 911 immediately. . Non-Emergent Contact Non-Emergency issues call your: Primary Care Provider, Truck Repair Supervisor . . "Provider Documentation" section prepared by Мария Burns. . Core Measure Problem Core Measures: None
[2017-08-05 15:21] VITALS: BP 100/51; PULSE 74; TEMP 36.4; O2SAT 95
[2017-08-06] MEDS ORDERED: FUROSEMIDE INJ 40 MG in SYRINGE 0 ML IV SCH (09:00)
--- NOTE | 2017-08-16 09:22 | EDITING REQUIRED CODING QUERY ---
CONGESTIVE HEART FAILURE To Promote full compliance with coding requirements relating to patient care, physician participation is requested in all cases of radiology technologist uncertainty. Please assist us with the following questions. A diagnosis of Congestive Heart Failure is documented in the patient's medical record. To accurately code this diagnosis and to compare patient severity, we ask that you specify the type of heart failure by placing an X within the parenthesis (x). SYSTOLIC HEART FAILURE ( ) Acute ( ) Chronic ( ) Acute on Chronic ( ) Rheumatic ( ) Unknown DIASTOLIC HEART FAILURE ( x ) Acute ( ) Chronic ( ) Acute on Chronic ( ) Rheumatic ( ) Unknown COMBINED SYSTOLIC AND DIASTOLIC HEART FAILURE ( ) Acute ( ) Chronic ( ) Acute on Chronic ( ) Rheumatic ( ) Unknown Was the CHF Present On Admission? Please check the appropriate box: ( x ) Present on Admission ( ) Not Present On Admission ( ) Clinically undetermined Thank you Ila Davila
== END 2017-08-05 16:00 | DRG 177 ==
LOC: EDBD 18:57 → C.EDC 18:58 → C.2E 08-02 00:07 → ENRESERV 08-02 00:27
PROVIDERS: ADMIT Internal Medicine; ATTEND Family Medicine
DX: J15.1 Pneumonia due to Pseudomonas (principal); I50.33 Acute on chronic diastolic (congestive) heart failure; I48.92 Unspecified atrial flutter; J18.9 Pneumonia, unspecified organism; I11.0 Hypertensive heart disease with heart failure; I05.9 Rheumatic mitral valve disease, unspecified; J44.9 Chronic obstructive pulmonary disease, unspecified; N40.0 Benign prostatic hyperplasia without lower urinary tract symptoms; I25.10 Atherosclerotic heart disease of native coronary artery without angina pectoris; I48.0 Paroxysmal atrial fibrillation; I95.9 Hypotension, unspecified; K59.00 Constipation, unspecified; Z87.01 Personal history of pneumonia (recurrent); Z82.49 Family history of ischemic heart disease and other diseases of the circulatory system; Z87.891 Personal history of nicotine dependence; Z79.01 Long term (current) use of anticoagulants; Z88.2 Allergy status to sulfonamides; Z88.6 Allergy status to analgesic agent; Z88.8 Allergy status to other drugs, medicaments and biological substances; Z91.02 Food additives allergy status; Z87.11 Personal history of peptic ulcer disease; Z95.2 Presence of prosthetic heart valve; Z95.1 Presence of aortocoronary bypass graft; W19.XXXA Unspecified fall, initial encounter

== ENCOUNTER → 2017-08-08 | Outpatient (CLI) | payer OTHER ==
[~2017-08-08] MED LIST changes: -DVN80 PO; +ECRCR EXT; +FINA5TAB PO; +FLM4 PO; +LVQ750 PO
[2017-08-08 10:08] LABS: INR 2.8 (0.9-1.1)
== END ==
LOC: C.LABCC 08:01
PROVIDERS: ATTEND Internal Medicine
DX: I48.91 Unspecified atrial fibrillation (principal)

== ENCOUNTER → 2017-08-12 | Outpatient (CLI) | payer OTHER ==
[2017-08-12 09:20] LABS: BLOOD UREA NITROGEN 16 mg/dl (7-18); CALCIUM 8.2 mg/dl (8.5-10.1); CARBON DIOXIDE 27 mmol/L (21-32); CREATININE 0.91 mg/dl (0.60-1.40); GLUCOSE 82 mg/dl (70-99); POTASSIUM 4.1 mmol/L (3.5-5.1); SODIUM 144 mmol/L (136-145)
== END ==
LOC: C.LABCC 08:49
PROVIDERS: ATTEND Internal Medicine
DX: I50.9 Heart failure, unspecified (principal)

== ENCOUNTER → 2017-08-28 | Outpatient (CLI) | payer OTHER ==
[2017-08-28 13:17] LABS: HEMATOCRIT 44.7 % (42-52); HEMOGLOBIN 14.9 g/dL (14.0-18.0); MEAN CELL VOLUME 90.3 fL (80-100); MEAN CORPUSCULAR HEMOGLOBIN 30.1 pg (25-34); MEAN CORPUSCULAR HGB CONC 33.3 g/dl (32-36); MEAN PLATELET VOLUME 9.4 fL (7.4-10.4); PLATELET COUNT 227 K/uL (130-400); RED CELL DISTRIBUTION WIDTH CV 14.6 % (11.5-14.5); RED CELL DISTRIBUTION WIDTH SD 48.3 fL (36.4-46.3); WHITE BLOOD COUNT 5.74 K/uL (4.8-10.8)
[2017-08-28 17:14] LABS: BLOOD UREA NITROGEN 18 mg/dl (7-18); CALCIUM 8.4 mg/dl (8.5-10.1); CARBON DIOXIDE 29 mmol/L (21-32); CREATININE 0.82 mg/dl (0.60-1.40); GLUCOSE 80 mg/dl (70-99); POTASSIUM 4.3 mmol/L (3.5-5.1); SODIUM 140 mmol/L (136-145)
== END | disposition home or self-care (01) ==
LOC: C.LAB1850 11:43
PROVIDERS: ATTEND Nurse Practitioner Adult Health
DX: D64.9 Anemia, unspecified (principal); I48.91 Unspecified atrial fibrillation; M62.81 Muscle weakness (generalized)

== ENCOUNTER → 2017-09-13 | Outpatient (CLI) | payer OTHER ==
[~2017-09-13] MED LIST changes: +POTA-639 PO; -POTA20TA16 PO
[2017-09-13 14:07] LABS: INR 2.7 (0.9-1.1)
== END | disposition home or self-care (01) ==
LOC: C.LABSPEC 13:36
PROVIDERS: ATTEND Internal Medicine Interventional Cardiology
DX: I48.91 Unspecified atrial fibrillation (principal)

== ENCOUNTER → 2017-10-29 | Outpatient (CLI) | payer OTHER ==
[~2017-10-29] MED LIST changes: +HYDR2.5C37 TOP; +WARF4TAB43 PO
[2017-10-29 18:05] LABS: INR 2.7 (0.9-1.1)
--- NOTE | 2017-11-15 10:53 | CODING QUERY NO DIAGNOSIS ---
Valid Physician Order Needed A valid physician order must be submitted in order to properly bill for the service(s) provided, including date of service(s), valid diagnosis, and physician signature. If these tests are done on a recurring basis the original physician order must be submitted in order to code and bill for the service(s) provided. Please fax us the original, signed physician order so that we may expedite billing to [phone] DOS 10/29/17 * Prothrombin Time Thank you Cher Sinha [facility] Information Management
== END | disposition home or self-care (01) ==
LOC: C.LABSPEC 16:58
PROVIDERS: ATTEND Internal Medicine Interventional Cardiology
DX: I48.92 Unspecified atrial flutter (principal); Z79.01 Long term (current) use of anticoagulants

== ENCOUNTER → 2018-01-08 | Outpatient (CLI) | payer OTHER ==
[~2018-01-08] MED LIST changes: -LVQ750 PO; -WARF-246 PO; -WARF5TAB90 PO
[2018-01-08 09:52] LABS: HEMATOCRIT 37.6 % (42-52); HEMOGLOBIN 12.2 g/dL (14.0-18.0); MEAN CELL VOLUME 90.4 fL (80-100); MEAN CORPUSCULAR HEMOGLOBIN 29.3 pg (25-34); MEAN CORPUSCULAR HGB CONC 32.4 g/dl (32-36); MEAN PLATELET VOLUME 9.8 fL (7.4-10.4); PLATELET COUNT 216 K/uL (130-400); RED CELL DISTRIBUTION WIDTH CV 15.2 % (11.5-14.5); RED CELL DISTRIBUTION WIDTH SD 49.8 fL (36.4-46.3); WHITE BLOOD COUNT 5.72 K/uL (4.8-10.8)
[2018-01-08 10:16] LABS: ALKALINE PHOSPHATASE 92 U/L (45-117); ALT/SGPT 18 U/L (12-78); AST/SGOT 29 U/L (15-37); BLOOD UREA NITROGEN 19 mg/dl (7-18); CALCIUM 7.6 mg/dl (8.5-10.1); CARBON DIOXIDE 30 mmol/L (21-32); CREATININE 1.15 mg/dl (0.60-1.40); GLUCOSE 83 mg/dl (70-99); POTASSIUM 3.5 mmol/L (3.5-5.1); SODIUM 140 mmol/L (136-145); TOTAL PROTEIN 5.1 gm/dl (6.4-8.2)
== END ==
LOC: C.LABCC 08:42
PROVIDERS: ATTEND Internal Medicine
DX: R59.1 Generalized enlarged lymph nodes (principal)

== ENCOUNTER → 2018-01-10 | Outpatient (CLI) | payer OTHER ==
[2018-01-10 08:32] LABS: INR 2.1 (0.9-1.1)
== END ==
LOC: C.LABCC 08:01 → EDSTATUS 01-16 13:08
PROVIDERS: ATTEND Internal Medicine
DX: I48.91 Unspecified atrial fibrillation (principal)

== ENCOUNTER → 2018-01-20 | Outpatient (CLI) | payer OTHER ==
[2018-01-20 14:06] LABS: BLOOD UREA NITROGEN 19 mg/dl (7-18); CALCIUM 7.8 mg/dl (8.5-10.1); CARBON DIOXIDE 31 mmol/L (21-32); CREATININE 0.95 mg/dl (0.60-1.40); GLUCOSE 95 mg/dl (70-99); POTASSIUM 3.8 mmol/L (3.5-5.1); SODIUM 142 mmol/L (136-145)
--- NOTE | 2018-01-28 14:44 | CODING QUERY NO DIAGNOSIS ---
Valid Physician Order Needed A valid physician order must be submitted in order to properly bill for the service(s) provided, including date of service(s), valid diagnosis, and physician signature. If these tests are done on a recurring basis the original physician order must be submitted in order to code and bill for the service(s) provided. Please fax us the original, signed physician order so that we may expedite billing to [phone] DOS 01/20/18 (Attached order is missing physician signature. Please send original order) * Basic Metabolic Panel Thank you Cher Sinha [facility] Information Management
== END | disposition home or self-care (01) ==
LOC: C.LABCC 12:08
PROVIDERS: ATTEND Physician Assistant
DX: I50.30 Unspecified diastolic (congestive) heart failure (principal)

== ENCOUNTER → 2018-01-27 | Outpatient (CLI) | payer OTHER ==
[2018-01-27 15:01] LABS: BLOOD UREA NITROGEN 16 mg/dl (7-18); CALCIUM 7.7 mg/dl (8.5-10.1); CARBON DIOXIDE 25 mmol/L (21-32); CREATININE 1.23 mg/dl (0.60-1.40); GLUCOSE 112 mg/dl (70-99); POTASSIUM 4.2 mmol/L (3.5-5.1); SODIUM 141 mmol/L (136-145)
== END | disposition home or self-care (01) ==
LOC: C.LABSPEC 16:23
PROVIDERS: ATTEND Physician Assistant
DX: I50.30 Unspecified diastolic (congestive) heart failure (principal)

== ENCOUNTER 2018-08-24 14:54 | Inpatient (IN) ==
[2018-08-24] MEDS ORDERED: PIPERACILLIN/TAZOBACTAM 4.5 GM/120 ML BAG IV ONE (15:42)
[2018-08-24] MEDS ORDERED: SODIUM CHLORIDE 0.9% 1000ML 500 ML IV ONE (15:42)
[2018-08-24 16:45] LABS: Basophils # (auto) 0.03 K/uL (0-0.2); Basophils % (auto) 0.4 %; Eosinophils # (auto) 0.17 K/uL (0-0.5); Eosinophils % (auto) 2.5 %; Hematocrit (blood only) 40.3 % (42-52); Hemoglobin 13.2 g/dL (14.0-18.0); Immature Granulocytes # (auto) 0.02 K/uL (0.00-0.02); Immature Granulocytes % (auto) 0.3 %; Lymphocytes # (auto) 0.82 K/uL (1.2-3.4); Lymphocytes % (auto) 12.1 %; Mean Corpuscular Hgb Conc 32.8 g/dL (32-36); Mean Corpuscular Volume 86.9 fL (80-100); Mean Platelet Volume 9.6 fL (7.4-10.4); Monocytes # (auto) 0.95 K/uL (0.11-0.59); Monocytes % (auto) 14.1 %; Neutrophils # (auto) 4.76 K/uL (1.4-6.5); Neutrophils % (auto) 70.6 %; Platelet Count 231 K/uL (130-400); RDW Coefficient of Variation 14.8 % (11.5-14.5); RDW Standard Deviation 46.9 fL (36.4-46.3); Red Blood Count 4.64 M/uL (4.7-6.1); White Blood Count 6.75 K/uL (4.8-10.8)
[2018-08-24 17:07] LABS: Albumin Level 2.8 gm/dl (3.4-5.0); BUN Creatinine Ratio 18.9 (10-20); Calcium 8.1 mg/dl (8.5-10.1); Creatinine Clr Calc Pharmacy 49.6 ml/min; Est GFR (African American) 73.6; Est GFR (Non-African American) 63.5; Magnesium 1.8 mg/dl (1.8-2.4); Potassium 3.8 mmol/L (3.5-5.1)
[2018-08-24 17:10] LABS: Albumin Globulin Ratio 0.7 (0.9-2); Bilirubin,Total 0.8 mg/dl (0.2-1); Globulin 3.8 gm/dl (2.5-4.0); Total Protein 6.6 gm/dl (6.4-8.2)
--- NOTE | 2018-08-24 17:20 | CT Scan Report ---
RIGHT FOOT CT CT DOSE: 191.94 mGy.cm HISTORY: Right foot nonhealing wound. poss osteo TECHNIQUE: Multiaxial CT images of the were performed and reformatted in the sagittal and coronal plane without the use of contrast. A dose lowering technique was utilized adhering to the principle s of ALARA. COMPARISON: None. FINDINGS: Small plantar and posterior calcaneal spurs. The bones are osteopenic. 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 No acute fracture or dislocation. Soft tissue and bony bunion. No cortical destruction or erosions to suggest osteomyelitis. The Lisfranc joint appears aligned. Foc al skin ulceration along the plantar surface at the level of the first MTP joint which measures appro ximately 3 cm. There is skin thickening and subcutaneous edema. No definite abscess. No underlying nicolás ny destruction. There is also diffuse subcutaneous edema within the ankle and forefoot. IMPRESSION: 1. A focal 3 cm plantar skin ulceration at the level of the first MTP joint. No underlying bony destr uction to suggest osteomyelitis. 2. No fracture or dislocation within the right foot. 3. Subcutaneous edema seen within the ankle and forefoot. Electronically signed by: Sánchez Licea M.D. 08/24/2018 5:19 PM
[2018-08-24 18:03] LABS: INR 1.2 (0.9-1.1); Partial Thromboplastin Ratio 1.2; Partial Thromboplastin Time 31.9 Seconds (21.0-31.0); Prothrombin Time 12.4 Seconds (9.0-12.0)
[2018-08-24] MEDS ORDERED: VANCOMYCIN CONSULT ACTIVE PRN ×2 (18:04→21:10)
[2018-08-24] MEDS ORDERED: VANCOMYCIN HCL 1,500 MG in SODIUM CHLORIDE 0.9% 500 ML IV ONE (18:04)
--- NOTE | 2018-08-24 18:21 | Emergency Department Note ---
Entered by Jose Miguel Gamez acting as a scribe for Niranjan Quezada MD History of Present Illness General Chief complaint: Foot Injury/Pain Stated complaint: SORE ON R FOOT Time Seen by Provider: 08/24/18 15:28 Source: patient History of Present Illness Onset (ago): week(s) (6) Location: right (foot) Pain Consistency: + other (denies pain, odor worsening) Quality: + other (possible infection) Associated symptoms: + other (foul odor; denies pain); no loss of appetite The patient is an 88 year old male who presents to the Emergency Room with complaints of a worsening possible infection of the right foot. The patient reports that he first noticed a hard spot on the bottom of his foot about six weeks ago, and last night he noticed a foul odor after removal of his sock. He denies any pain. He notes that he has been eating and drinking without difficul ty. He reports a history of heart and lung problems and states that he takes Eliquis. He denies a history of diabetes or previous infection in the right foot. Home Medications Home Medications Medication Instructions Recorded Confirmed Type apixaban [Eliquis] 5 mg PO BID 08/24/18 08/24/18 History atorvastatin 40 mg PO QPM 08/24/18 08/24/18 History budesonide-formoterol [Symbicort] 1 puff INHALATION BID 08/24/18 08/24/18 History bumetanide 2 mg PO DAILY 08/24/18 08/24/18 History carvedilol [Coreg] 12.5 mg PO BID 08/24/18 08/24/18 History clopidogrel [Plavix] 75 mg PO DAILY 08/24/18 08/24/18 History finasteride 5 mg PO QPM 08/24/18 08/24/18 History nitroglycerin 0.4 mg SUBLINGUAL UD 08/24/18 08/24/18 History omeprazole 20 mg PO DAILY 08/24/18 08/24/18 History potassium chloride [Klor-Con M20] 20 meq PO DAILY 08/24/18 08/24/18 History tamsulosin [Flomax] 0.4 mg PO QPM 08/24/18 08/24/18 History Allergies Allergy/AdvReac Type Severity Reaction Status Date / Time aspirin AdvReac Intermediate GI Verified 03/24/19 17:22 ULCERATION- WHEN TAKEN WITH COUMADIN black pepper AdvReac Mild Verified 08/24/18 17:22 lisinopril AdvReac Mild Verified 08/24/18 17:22 Sulfa (Sulfonamide AdvReac Unknown "SULFA Verified 08/24/18 17:22 Antibiotics) DRUGS": HAS TOLERATED LASIX IN PAST Past Med/Surg History Medical History CHF (congestive heart failure) (Chronic) Hypertension (Chronic) Mitral valve disorder (Chronic) BPH (benign prostatic hyperplasia) COPD (chronic obstructive pulmonary disease) Hyperlipidemia 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 and A total of 10 systems reviewed and were otherwise negative Physical Exam Vital Signs Vital Signs - 24 hr 08/24/18 15:17 08/24/18 16:50 08/24/18 17:24 Temperature 36.7 C Temperature Source Oral Sepsis Recent Fever Within 48 Hours No Sepsis Action Taken by Nursing No Action Required Pulse Rate 81 68 Pulse Rate [Apical] 60 Pulse Rate from SpO2 Sensor Respiratory Rate 20 20 24 Respiratory Effort / Characteristics Non-Labored Spontaneous Respiratory Depth Normal Respiratory Pattern Regular Blood Pressure 129/55 L 143/82 H Blood Pressure [Left Arm] 163/73 H Blood Pressure Mean 79 102 Blood Pressure Mean [Left Arm] 103 Blood Pressure Position Sitting Pulse Oximetry 92 97 Oxygen Delivery Method Room Air Room Air 08/24/18 17:31 08/24/18 17:53 08/24/18 18:01 Temperature Temperature Source Sepsis Recent Fever Within 48 Hours Sepsis Action Taken by Nursing Pulse Rate 73 61 Pulse Rate [Apical] Pulse Rate from SpO2 Sensor 60 Respiratory Rate 26 H 24 Respiratory Effort / Characteristics Respiratory Depth Respiratory Pattern Blood Pressure 147/76 H 165/82 H Blood Pressure [Left Arm] Blood Pressure Mean 99 109 Blood Pressure Mean [Left Arm] Blood Pressure Position Pulse Oximetry 96 95 Oxygen Delivery Method Room Air 08/24/18 18:45 Temperature Temperature Source Sepsis Recent Fever Within 48 Hours Sepsis Action Taken by Nursing Pulse Rate 61 Pulse Rate [Apical] Pulse Rate from SpO2 Sensor 63 Respiratory Rate 21 Respiratory Effort / Characteristics Respiratory Depth Respiratory Pattern Blood Pressure 157/84 H Blood Pressure [Left Arm] Blood Pressure Mean 108 Blood Pressure Mean [Left Arm] Blood Pressure Position Pulse Oximetry 94 Oxygen Delivery Method Room Air GENERAL: Patient is in no acute distress. HEENT: No acute trauma, normocephalic atraumatic, mucous membranes moist, no nasal congestion, no scleral icterus. NECK: No stridor, no adenopathy, no meningismus, trachea is midline. LUNGS: Clear to auscultation bilaterally, no wheeze, no rhonchi, breath sounds equal. HEART: Without murmurs gallops or rubs, regular rate and rhythm. ABDOMEN: Soft, nontender, bowel sounds positive, no hernias, no peritonitis. EXTREMITIES: Swelling to right lower extremity and foot. Erythema and warmth to right distal leg and foot. Foul-smelling necrotic-appearing lesion on the plantar aspect of the foot at the base of the great toe. No active drainage. Culture was obtained. NEUROLOGIC: Oriented x 3, no acute motor or sensory deficits, no focal weakness. SKIN: No rash, no jaundice, no diaphoresis. Course 1530: Past medical records reviewed. The patient was evaluated in room C5, and a complete history and physical examination were performed. 1808: I consulted Dr. Nandini Rush [facility] Hospitalist. The patient will be reevaluated for hospitalization. 0: I updated the patient on current results. Consultations Consultation #1: I consulted Dr. Nandini Rush [facility] Hospitalist. The patient will be reevaluated for hospitalization. Time: 18:08 Administered Medications Discontinued Medications Piperacillin Sod/Tazobactam Sod (Zosyn) 4.5 gm in 120 mls @ 240 mls/hr IV NOW ONE Stop: 08/24/18 16:11 Last Infusion: 08/24/18 17:16 Dose: 0 mls/hr Documented by: [id number] Admin: 08/24/18 16:46 Dose: 240 mls/hr Documented by: [id number] Sodium Chloride (Nss 1000ml) 500 mls @ 999 mls/hr IV .Q31M ONE Stop: 08/24/18 16:12 Last Infusion: 08/24/18 17:17 Dose: 0 mls/hr Documented by: [id number] Admin: 08/24/18 16:46 Dose: 999 mls/hr Documented by: [id number] Medical Decision Making Differential Diagnosis Differential diagnosis: cellulitis, osteomyelitis, DVT, gangrene, dehydration, electrolyte imbalance, necrosis Medical Records Attestation: I reviewed the patient's medical records. Home Medications Current Medication List: was personally reviewed by me Laboratory Data Attestation: I reviewed the patient's lab results. Result diagrams: 08/24/18 16:17 08/24/18 16:17 Lab Results 08/24/18 08/24/18 08/24/18 Range/Units 16:17 16:17 16:17 WBC 6.75 (4.8-10.8) K/uL RBC 4.64 L (4.7-6.1) M/uL Hgb 13.2 L (14.0-18.0) g/dL Hct 40.3 L (42-52) % MCV 86.9 (80-100) fL MCH 28.4 (25-34) pg MCHC 32.8 (32-36) g/dL RDW Std Deviation 46.9 H (36.4-46.3) fL RDW Coeff of Michelle 14.8 H (11.5-14.5) % Plt Count 231 (130-400) K/uL MPV 9.6 (7.4-10.4) fL Immature Gran % (Auto) 0.3 % Neut % (Auto) 70.6 % Lymph % (Auto) 12.1 % [place] % (Auto) 14.1 % Eos % (Auto) 2.5 % Baso % (Auto) 0.4 % Immature Gran # (Auto) 0.02 (0.00-0.02) K/uL Neut # (Auto) 4.76 (1.4-6.5) K/uL Lymph # (Auto) 0.82 L (1.2-3.4) K/uL [place] # (Auto) 0.95 H (0.11-0.59) K/uL Eos # (Auto) 0.17 (0-0.5) K/uL Baso # (Auto) 0.03 (0-0.2) K/uL PT Cancelled INR Cancelled APTT Cancelled PTT Ratio Cancelled Sodium 141 (136-145) mmol/L Potassium 3.8 (3.5-5.1) mmol/L Chloride 105 (98-107) mmol/L Carbon Dioxide 31 (21-32) mmol/L Anion Gap 5.0 (3-11) BUN 20 H (7-18) mg/dl Creatinine 1.05 (0.6-1.4) mg/dl Est Cr Clr Drug Dosing 49.6 ml/min Est GFR ( Amer) 73.6 Est GFR (Non-Af Amer) 63.5 BUN/Creatinine Ratio 18.9 (10-20) Glucose 82 (70-99) mg/dl Lactate (0.4-2.0) mmol/L Calcium 8.1 L (8.5-10.1) mg/dl Magnesium 1.8 (1.8-2.4) mg/dl Total Bilirubin 0.8 (0.2-1) mg/dl AST 37 (15-37) U/L ALT 32 (12-78) U/L Alkaline Phosphatase 117 (45-117) U/L Total Protein 6.6 (6.4-8.2) gm/dl Albumin 2.8 L (3.4-5.0) gm/dl Globulin 3.8 (2.5-4.0) gm/dl Albumin/Globulin Ratio 0.7 L (0.9-2) 08/24/18 08/24/18 Range/Units 16:17 17:34 WBC (4.8-10.8) K/uL RBC (4.7-6.1) M/uL Hgb (14.0-18.0) g/dL Hct (42-52) % MCV (80-100) fL MCH (25-34) pg MCHC (32-36) g/dL RDW Std Deviation (36.4-46.3) fL RDW Coeff of Michelle (11.5-14.5) % Plt Count (130-400) K/uL MPV (7.4-10.4) fL Immature Gran % (Auto) % Neut % (Auto) % Lymph % (Auto) % [place] % (Auto) % Eos % (Auto) % Baso % (Auto) % Immature Gran # (Auto) (0.00-0.02) K/uL Neut # (Auto) (1.4-6.5) K/uL Lymph # (Auto) (1.2-3.4) K/uL [place] # (Auto) (0.11-0.59) K/uL Eos # (Auto) (0-0.5) K/uL Baso # (Auto) (0-0.2) K/uL PT 12.4 H INR 1.2 H APTT 31.9 H PTT Ratio 1.2 Sodium (136-145) mmol/L Potassium (3.5-5.1) mmol/L Chloride (98-107) mmol/L Carbon Dioxide (21-32) mmol/L Anion Gap (3-11) BUN (7-18) mg/dl Creatinine (0.6-1.4) mg/dl Est Cr Clr Drug Dosing ml/min Est GFR ( Amer) Est GFR (Non-Af Amer) BUN/Creatinine Ratio (10-20) Glucose (70-99) mg/dl Lactate 1.1 (0.4-2.0) mmol/L Calcium (8.5-10.1) mg/dl Magnesium (1.8-2.4) mg/dl Total Bilirubin (0.2-1) mg/dl AST (15-37) U/L ALT (12-78) U/L Alkaline Phosphatase (45-117) U/L Total Protein (6.4-8.2) gm/dl Albumin (3.4-5.0) gm/dl Globulin (2.5-4.0) gm/dl Albumin/Globulin Ratio (0.9-2) Imaging Data Radiologist's Impression: Radiology results as stated below per my review and the radiologist's interpretation: RIGHT LOWER EXTREMITY VENOUS DOPPLER HISTORY: Right leg swelling, poss clot COMPARISON STUDY: None. FINDINGS: There is normal compressibility, flow, and augmentation within the right lower extremity deep venous system. IMPRESSION: No DVT within the right lower extremity Electronically signed by: Sánchez Licea M.D. 08/24/2018 6:[address] DOSE: 191.94 mGy.cm HISTORY: Right foot nonhealing wound. poss osteo TECHNIQUE: Multiaxial CT images of the were performed and reformatted in the sagittal and coronal plane without the use of contrast. A dose lowering technique was utilized adhering to the principles of ALARA. COMPARISON: None. FINDINGS: Small plantar and posterior calcaneal spurs. The bones are osteopenic. 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 No acute fracture or dislocation. Soft tissue and bony bunion. No cortical destruction or erosions to suggest osteomyelitis. The Lisfranc joint appears aligned. Focal skin ulceration along the plantar surface at the level of the first MTP joint which measures approximately 3 cm. There is skin thickening and subcutaneous edema. No definite abscess. No underlying bony destruction. There is also diffuse subcutaneous edema within the ankle and forefoot. IMPRESSION: 1. A focal 3 cm plantar skin ulceration at the level of the first MTP joint. No underlying bony destruction to suggest osteomyelitis. 2. No fracture or dislocation within the right foot. 3. Subcutaneous edema seen within the ankle and forefoot. Electronically signed by: Sánchez Licea M.D. 08/24/2018 5:19 PM Blood Pressure Blood Pressure Findings: Elevated blood pressure Blood Pressure Disposition: further management by hospitalist MDM Narrative There is no leukocytosis. No worrisome anemia. INR was slightly elevated at 1.2. There was no significant electrolyte abnormality requiring correction, no kidney failure. Lactic acid level was not elevated making severe sepsis less likely. There was no hepatitis. Blood cultures are pending. Right foot CT shows cellulitis, no osteomyelitis. A culture of the lesion was obtained and is pending. Right leg ultrasound does not show any evidence for DVT. The patient received IV saline, he was given IV Zosyn and IV vancomycin as antibiotic coverage. The patient has a right lower leg/foot cellulitis. He has a necrotic appearing skin lesion to the plantar aspect of his right foot. There is a very strong foul odor in the room consistent with a gangrenous/necrotic infection. I do think a hospital stay is warranted. I spoke to the patient and case management. The on-call hospitalist was consulted. The patient is likely going to require some type of a surgical debridement. Impression & Plan Cellulitis of right foot, Cellulitis of right leg, Right leg swelling Discharge Plan Visit Data Chief Complaint: Foot Injury/Pain Stated Complaint: SORE ON R FOOT ED Provider: Niranjan Quezada Discharge Problem: Cellulitis of right foot, Cellulitis of right leg, Right leg swelling Patient Disposition: Being Evaluated by Hospitalist Forms Stand Alone Forms: My [facility] [email or web address] Prescriptions Prescriptions: No Action atorvastatin 40 mg Tablet 40 mg PO QPM RF: 0 carvedilol [Coreg] 12.5 mg Tablet 12.5 mg PO BID RF: 0 bumetanide 2 mg tablet 2 mg PO DAILY RF: 0 clopidogrel [Plavix] 75 mg Tablet 75 mg PO DAILY RF: 0 potassium chloride [Klor-Con M20] 20 mEq Tablet,Er Particles/Crystals 20 meq PO DAILY RF: 0 tamsulosin [Flomax] 0.4 mg Capsule 0.4 mg PO QPM RF: 0 nitroglycerin 0.4 mg Tablet, Sublingual 0.4 mg sublingual UD RF: 0 omeprazole 20 mg Capsule,Delayed Release(Dr/Ec) 20 mg PO DAILY RF: 0 finasteride 5 mg Tablet 5 mg PO QPM RF: 0 Symbicort 160-4.5 mcg/actuation Hfa Aerosol Inhaler 1 puff INHALATION BID RF: 0 Eliquis 5 mg tablet 5 mg PO BID RF: 0 Referrals Referrals: Karson Moran M.D. [Primary Care Provider] - The scribe's documentation has been prepared under my direction and personally reviewed by me in its entirety. I confirm that the note above accurately reflects all work, treatment, procedures, and medical decision making performed by me.
--- NOTE | 2018-08-24 18:23 | History & Physical Report ---
Date of Service August 24, 2018 Assessment & Plan (1) Wound of right foot: First metatarsal head region. Suspect he had pre-existing callus which then became infected. Fortunately no signs of deep abscess or osteomyelitis on CT. 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 Blood cx's sent. Continue zosyn and vancomycin. Will ask wound care nurse to see. [place] Narvae[place] [facility] [place] for [place]. I am uncertain if this is doable at bedside or will need OR debridement. Since it is a fairly extensive area will HOLD his plavix and eliquis in preparation for possible surgical debridement. Allow weight-bearing to RLE but only partial at this time with hopes of avoiding further trauma. His pulses seem adequate on exam but to be complete will order arterial doppler of RLE to ensure adequate circulation. Present on Admission?: Yes (2) CAD (coronary artery disease): The patient has dyspnea on exertion with long walks as well as very occasional chest pain at peak activity. He takes nitro on an infrequent basis. He likely has stable chronic angina Continue his statin agent, beta-ivy, and resume his Plavix after surgical debridement is complete. We will check a baseline EKG. Present on Admission?: Yes (3) Chronic diastolic (congestive) heart failure: The patient appears compensated. Continue beta-ivy and Bumex. Present on Admission?: Yes (4) COPD (chronic obstructive pulmonary disease): Not in exacerbation at this time. Continue Symbicort twice daily. Present on Admission?: Yes (5) Paroxysmal atrial flutter: Clinically the patient appears to be in normal sinus rhythm. To be complete we will check an EKG. Hold anticoagulation as he may need surgical debridement of his right foot. Present on Admission?: No (6) BPH (benign prostatic hyperplasia): Continue finasteride and Flomax. Present on Admission?: Yes (7) GERD (gastroesophageal reflux disease): Substitute Protonix for his Prilosec. Present on Admission?: Yes (8) DVT prophylaxis: As mentioned above we will hold his Eliquis in the event he needs surgical debridement of his foot. While awaiting any surgical intervention I would recommend placing on heparin twice daily starting on August 25. Daughter was updated at bedside Total visit time was 60 minutes History of Present Illness Chief Complaint: right foot infection Primary Care Provider: Karson Moran 88yo male presents with right foot infection for several days. He states on Saturday night he noticed a foul odor with some mild drainage from the bottom of his foot. He denies any pain in the foot itself but has had "soreness" in his right ankle for unspecified period of time. Denies any numbness or tingling in his feet. Denies claudication of the legs with walking. Allergies Allergy/AdvReac Type Severity Reaction Status Date / Time aspirin AdvReac Intermediate GI Verified 08/24/18 17:22 ULCERATION- WHEN TAKEN WITH COUMADIN black pepper AdvReac Mild Verified 08/24/18 17:22 lisinopril AdvReac Mild Verified 08/24/18 17:22 Sulfa (Sulfonamide AdvReac Unknown "SULFA Verified 08/24/18 17:22 Antibiotics) DRUGS": HAS TOLERATED LASIX IN PAST Home Medications Home Medications Medication Instructions Recorded Confirmed Type apixaban [Eliquis] 5 mg PO BID 08/24/18 08/24/18 History atorvastatin 40 mg PO QPM 08/24/18 08/24/18 History budesonide-formoterol [Symbicort] 1 puff INHALATION BID 08/24/18 08/24/18 History bumetanide 2 mg PO DAILY 08/24/18 08/24/18 History carvedilol [Coreg] 12.5 mg PO BID 08/24/18 08/24/18 History clopidogrel [Plavix] 75 mg PO DAILY 08/24/18 08/24/18 History finasteride 5 mg PO QPM 08/24/18 08/24/18 History nitroglycerin 0.4 mg SUBLINGUAL UD 08/24/18 08/24/18 History omeprazole 20 mg PO DAILY 08/24/18 08/24/18 History potassium chloride [Klor-Con M20] 20 meq PO DAILY 08/24/18 08/24/18 History tamsulosin [Flomax] 0.4 mg PO QPM 08/24/18 08/24/18 History Past Med/Surg History Medical History BPH (benign prostatic hyperplasia) COPD (chronic obstructive pulmonary disease) Chronic diastolic (congestive) heart failure Hyperlipidemia 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 Paroxysmal atrial flutter Hypertension (Chronic) Mitral valve disorder (Chronic) CHF (congestive heart failure) (Resolved) Surgical History 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 Social History Preferred Language: Kyrgyz Communication Ability: Effective Test Examiner Required: No Beliefs That Will Affect Care: None marital status: Current Living Situation: Alone current occupational status: retired current occupation: worked 18 years at [employer] in [place]; served in [employer] Other Information That Helps Us Care for You: No other: lives alone in [place]; has 2 children Feels Safe at Home: Yes Safety Concerns: Feels Safe At This Time Smoking Status: Former smoker Hx Alcohol Use: No Hx Substance Use: No Review of Systems Constitutional: + chills; no fever, no anorexia, no weight loss and no weight gain Eyes: no worsening vision Ear, Nose, Mouth, Throat: no sore throat and no dysphagia Respiratory: + dyspnea on exertion; no cough Cardiovascular: + chest pain (with heavy exertional activity) and + edema (right > left); no orthopnea and no paroxysmal nocturnal dyspnea Gastrointestinal: + diarrhea/loose stools (after taking laxatives); no abdominal pain, no nausea and no vomiting Genitourinary (Male): no dysuria Musculoskeletal: no back pain and no joint pain Integumentary: + non-healing lesions and + skin ulcer Neurologic: no numbness Psychiatric: no depression no diabetes Physical Exam Vital Signs (Past 24 Hours): Last Vital Signs Temp 36.7 C 08/24/18 15:17 Pulse 61 08/24/18 18:01 Resp 24 08/24/18 18:01 BP 165/82 H 08/24/18 18:01 Pulse Ox 95 08/24/18 18:01 Constitutional: well developed, well nourished and average body habitus; no acute distress, not ill appearing and no altered mental status Eyes: PERRL ENMT: external ear and nose normal, oropharynx normal Neck: trachea midline, no thyromegaly Respiratory: normal respiratory effort, lungs clear to auscultation Cardiovascular: Rate/Rhythm: regular rate and regular rhythm Heart Sounds: normal S1 and normal S2; no murmur Vessels: posterior tibial pulses present and dorsalis pedis pulses present; no JVD Extremities: + pedal edema (right foot/ankle - 1+) Chest (Breasts): Additional Comments: sternotomy scar midline Gastrointestinal (Abdomen): normal bowel sounds, soft, nontender, no hepatosplenomegaly Musculoskeletal: Extremities: + clubbing (fingernails) Skin: plantar aspect RIGHT foot - first metatarsal head area - foul-smelling callus/wound with small opening centrally; minimal drainage; bone cannot be seen Neurologic: deep tendon reflexes 2+ bilaterally and moves all extremities Psychiatric: A+Ox3, euthymic affect Lymphatic: no cervical lymphadenopathy Results & Data Laboratory Results Laboratory Results - last 24 hr 08/24/18 08/24/18 08/24/18 16:17 16:17 16:17 WBC 6.75 RBC 4.64 L Hgb 13.2 L Hct 40.3 L MCV 86.9 MCH 28.4 MCHC 32.8 RDW Std Deviation 46.9 H RDW Coeff of Michelle 14.8 H Plt Count 231 MPV 9.6 Immature Gran % (Auto) 0.3 Neut % (Auto) 70.6 Lymph % (Auto) 12.1 [place] % (Auto) 14.1 Eos % (Auto) 2.5 Baso % (Auto) 0.4 Immature Gran # (Auto) 0.02 Neut # (Auto) 4.76 Lymph # (Auto) 0.82 L [place] # (Auto) 0.95 H Eos # (Auto) 0.17 Baso # (Auto) 0.03 PT Cancelled INR Cancelled APTT Cancelled PTT Ratio Cancelled Sodium 141 Potassium 3.8 Chloride 105 Carbon Dioxide 31 Anion Gap 5.0 BUN 20 H Creatinine 1.05 Est Cr Clr Drug Dosing 49.6 Est GFR ( Amer) 73.6 Est GFR (Non-Af Amer) 63.5 BUN/Creatinine Ratio 18.9 Glucose 82 Lactate Calcium 8.1 L Magnesium 1.8 Total Bilirubin 0.8 AST 37 ALT 32 Alkaline Phosphatase 117 Total Protein 6.6 Albumin 2.8 L Globulin 3.8 Albumin/Globulin Ratio 0.7 L 08/24/18 08/24/18 16:17 17:34 WBC RBC Hgb Hct MCV MCH MCHC RDW Std Deviation RDW Coeff of Michelle Plt Count MPV Immature Gran % (Auto) Neut % (Auto) Lymph % (Auto) [place] % (Auto) Eos % (Auto) Baso % (Auto) Immature Gran # (Auto) Neut # (Auto) Lymph # (Auto) [place] # (Auto) Eos # (Auto) Baso # (Auto) PT 12.4 H INR 1.2 H APTT 31.9 H PTT Ratio 1.2 Sodium Potassium Chloride Carbon Dioxide Anion Gap BUN Creatinine Est Cr Clr Drug Dosing Est GFR ( Amer) Est GFR (Non-Af Amer) BUN/Creatinine Ratio Glucose Lactate 1.1 Calcium Magnesium Total Bilirubin AST ALT Alkaline Phosphatase Total Protein Albumin Globulin Albumin/Globulin Ratio Diagnostic Findings CT foot - IMPRESSION: 1. A focal 3 cm plantar skin ulceration at the level of the first MTP joint. No underlying bony destruction to suggest osteomyelitis. 2. No fracture or dislocation within the right foot. 3. Subcutaneous edema seen within the ankle and forefoot. RLE venous doppler - negative DVT Code Status & VTE Plan Code Status level 5 DNR VTE Prophylaxis Plan VTE Prophylaxis will be ordered: Yes (1) CAD (coronary artery disease) Coronary Disease-Associated Artery/Lesion type: [place] artery [place] vs. transplanted heart: [place] heart Associated angina: without angina Qualified Code(s): I25.10 - Atherosclerotic heart disease of [place] coronary artery without angina pectoris (2) COPD (chronic obstructive pulmonary disease) COPD type: unspecified COPD Qualified Code(s): J44.9 - Chronic obstructive pulmonary disease, unspecified (3) BPH (benign prostatic hyperplasia) Lower urinary tract symptom presence: symptoms absent Qualified Code(s): N40.0 - Benign prostatic hyperplasia without lower urinary tract symptoms (4) GERD (gastroesophageal reflux disease) Esophagitis presence: without esophagitis Qualified Code(s): K21.9 - Gastro- esophageal reflux disease without esophagitis
--- NOTE | 2018-08-24 18:40 | Ultrasound Report ---
RIGHT LOWER EXTREMITY VENOUS DOPPLER HISTORY: Right leg swelling, poss clot COMPARISON STUDY: None. FINDINGS: There is normal compressibility, flow, and augmentation within the right lower extremity de ep venous system. IMPRESSION: No DVT within the right lower extremity Electronically signed by: Sánchez Licea M.D. 08/24/2018 6:39 PM
[2018-08-24] MEDS ORDERED: ONDANSETRON INJ 2 MG/ML 2 ML VIAL IV PRN (21:10)
[2018-08-24] MEDS ORDERED: PIPERACILL/TAZOBAC CONSULT ACTIVE PRN (21:10)
[2018-08-24] MEDS ORDERED: ACETAMINOPHEN 325 MG TAB PO PRN (21:10)
[2018-08-24] MEDS: CARVEDILOL 12.5 MG TAB PO SCH (22:42)
[2018-08-24] MEDS: ATORVASTATIN 40 MG TAB PO SCH (22:43)
[2018-08-24] MEDS: TAMSULOSIN HCL 0.4 MG CAP PO SCH (22:43)
[2018-08-24] MEDS: FINASTERIDE 5 MG TAB PO SCH (22:43)
[2018-08-24] MEDS: BUDESONIDE/FORMOTEROL FUMARATE 160/4.5 60 PUFFS/INHALER INH SCH (22:44)
[2018-08-24] MEDS: PIPERACILLIN/TAZOBACTAM 3.375 GM in DEXTROSE 5% 100 ML IV SCH (23:18)
[2018-08-25] MEDS: PIPERACILLIN/TAZOBACTAM 3.375 GM in DEXTROSE 5% 100 ML IV SCH ×3 (06:15→23:51)
[2018-08-25] MEDS ORDERED: VANCOMYCIN HCL 1,000 MG in SODIUM CHLORIDE 0.9% 250 ML IV SCH (07:00)
[2018-08-25] MEDS: CARVEDILOL 12.5 MG TAB PO SCH ×2 (07:27→20:40)
[2018-08-25] MEDS: POTASSIUM CHLORIDE 20 MEQ TABCR PO SCH (07:28)
[2018-08-25] MEDS: LACTOBACILLUS ACIDOPHILUS (FLORANEX) TAB PO SCH ×3 (07:28→18:52)
[2018-08-25] MEDS: PANTOprazole 40 MG TAB PO SCH (07:28)
[2018-08-25] MEDS: BUMETANIDE 1 MG TAB PO SCH (07:28)
[2018-08-25] MEDS: BUDESONIDE/FORMOTEROL FUMARATE 160/4.5 60 PUFFS/INHALER INH SCH ×2 (07:28→18:53)
--- NOTE | 2018-08-25 08:57 | Ultrasound Report ---
US arterial duplex LE RT HISTORY: 88 years-old Male wound R foot; eval RLE for PAD chronic wound of the right lower extremity with concern for peripheral arterial disease COMPARISON: Right foot CT 08/24/2018 TECHNIQUE: Multiple real-time sonographic images of the right lower extremity arterial structures wer e obtained assessing grayscale appearance, color and spectral flow. Segmental blood pressures also ob tained. FINDINGS: SEGMENTAL BLOOD PRESSURE: Right: Brachial 124 (index); posterior tibial 157 (1.27); dorsalis pedis 155 (1.25). Left: Brachial 124 (index); posterior tibial 148 (1.19); dorsalis pedis 147 (1.19). Triphasic waveforms are seen within the common femoral, profunda femoris, superficial femoral and pop liteal arteries. Biphasic waveforms noted within the posterior tibial artery with mildly blunted mono phasic waveforms about the peroneal and anterior tibial arteries. Biphasic waveforms noted within the dorsalis pedis artery. Peak systolic velocity measuring up to 129 cm/s noted within the posterior ti bial artery. Mild scattered atherosclerotic plaque formation. Peak systolic velocity 140 cm/s noted a bout the mid superficial femoral artery. Peak systolic velocity of 183 cm/s noted at the dorsalis ped is artery. IMPRESSION: 1. Normal triphasic waveforms noted about the level of the knee. 2. Monophasic and biphasic waveforms about the calf as above suggestive of underlying peripheral hasmukh rial disease. 3. No arterial occlusion identified. The above report was generated using voice recognition software. It may contain grammatical, syntax o r spelling errors. Electronically signed by: Antolin Cowart M.D. 08/25/2018 8:56 AM
[2018-08-25] MEDS: VANCOMYCIN HCL 1,000 MG in SODIUM CHLORIDE 0.9% 250 ML IV SCH ×2 (08:58→22:27)
[2018-08-25 09:52] LABS: Creatinine Clr Calc Pharmacy 57.1 ml/min; Est GFR (African American) 73.6; Est GFR (Non-African American) 63.5
[2018-08-25 09:56] LABS: Troponin I 0.029 ng/ml (0-0.045)
--- NOTE | 2018-08-25 10:29 | Pharmacy Report ---
Pharmacy Abx Initial Consult - Date of Service August 25, 2018 - Pharmacy Dosing Scope Date of Consult: 08-25 Consultation requested by: Dr. Delatorre Pharmacy is consulted to initiate vancomycin and zosyn dosing therapy, order appropriate labs and adjust drug dose/frequency. - Subjective The patient is a 88 year old M admitted on 08/24/18 19:45. - Objective Height: 5 ft 11 in Weight: 90.8 kg Vital Signs (Past 12hrs): Vital Signs Temp Pulse Resp BP Pulse Ox 08/25/18 07:52 36.5 C 62 12 134/79 94 Micro Results: 08/24/18 15:40 Gram Stain - Final Foot,Right 08/24/18 16:27 Blood Culture - Pending Blood 08/24/18 16:17 Blood Culture - Pending Blood - Assessment & Plan Assessment/Plan: Patient started on vancomycin and zosyn for possible right foot infection/skin and soft tissue infection. CT of foot not suggestive of osteomyelitis. Blood cultures and wound cultures pending at this time. Ortho consulted to determine if debridement/surgical intervention is necessary. Vancomycin: * 1500 mg x 1 given in the ED yesterday; was then started on vancomycin 1000 mg (~11 mg/kg) iv q 14 hrs to achieve an estimated trough ~15 mcg/ml (goal for skin/soft tissue/unclear from notes today if positive for continued drainage) Could consider targeting 10-15 mcg/ml if no abscess/drainage present. * Estimated kinetics: t1/2~14 hrs, ke~0.05 hr-1, CrCl ~57 ml/min (appears to be around baseline Scr) * Trough ordered before the 1200 dose on 08/26 to ensure therapeutic Zosyn: * 3.375 gm iv q 8 hr - appropriate for CrCl >20 ml/min ; no changes necessary Pharmacy will continue to follow and will adjust dose/frequency as necessary. Thank you.
--- NOTE | 2018-08-25 10:35 | Orthopedic Consultation ---
Date of Consultation August 25, 2018 Assessment & Plan (1) Foot infection: Strangely patient has a nonpainful wound ulceration of the right first MTP joint on the volar aspect. Spoke with Dr. Narvaez this a.m. he would like to have an MRI performed of the right foot and also needs at least 2-3 days to be off the Eliquis in order to do any kind of debridement. Therefore the patient may eat today we will see him tomorrow and then he may have surgery tomorrow or the following day depending on Eliquis and availability of Dr. Narvaez. History of Present Illness Reason for Consultation: Right foot pain Attending Physician: Nancy Canada MD History of Present Illness Pleasant male who is 88 years of age who has had about a week long history of pain in his right plantar aspect of his right foot over the first MTP joint. Patient states he is not diabetic patient states that he has no vascular history, and currently states he has no pain despite his open lesion present on the plantar aspect of the right first MTP joint. Patient relates no fevers or chills and no injury. Patient had Doppler and a arterial scan which showed no evidence of DVT or arterial occlusion. Patient also had a CT scan but no MRI ordered. Patient also on Eliquis which he took his last dose on Saturday. Allergies Allergy/AdvReac Type Severity Reaction Status Date / Time aspirin AdvReac Intermediate GI Verified 08/24/18 17:22 ULCERATION- WHEN TAKEN WITH COUMADIN black pepper AdvReac Mild Verified 08/24/18 17:22 lisinopril AdvReac Mild Verified 08/24/18 17:22 Sulfa (Sulfonamide AdvReac Unknown "SULFA Verified 08/24/18 17:22 Antibiotics) DRUGS": HAS TOLERATED LASIX IN PAST Home Medications Home Medications Medication Instructions Recorded Confirmed Type apixaban [Eliquis] 5 mg PO BID 08/24/18 08/24/18 History atorvastatin 40 mg PO QPM 08/24/18 08/24/18 History budesonide-formoterol [Symbicort] 1 puff INHALATION BID 08/24/18 08/24/18 History bumetanide 2 mg PO DAILY 08/24/18 08/24/18 History carvedilol [Coreg] 12.5 mg PO BID 08/24/18 08/24/18 History clopidogrel [Plavix] 75 mg PO DAILY 08/24/18 08/24/18 History finasteride 5 mg PO QPM 08/24/18 08/24/18 History nitroglycerin 0.4 mg SUBLINGUAL UD 08/24/18 08/24/18 History omeprazole 20 mg PO DAILY 08/24/18 08/24/18 History potassium chloride [Klor-Con M20] 20 meq PO DAILY 08/24/18 08/24/18 History tamsulosin [Flomax] 0.4 mg PO QPM 08/24/18 08/24/18 History Patient History Medical History BPH (benign prostatic hyperplasia) COPD (chronic obstructive pulmonary disease) Chronic diastolic (congestive) heart failure Hyperlipidemia 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 Paroxysmal atrial flutter Hypertension (Chronic) Mitral valve disorder (Chronic) CHF (congestive heart failure) (Resolved) Surgical History H/O mitral valve repair 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 Social History Preferred Language: Syriac Communication 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: 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 Beliefs That Will Affect Care: None marital status: Current Living Situation: Alone current occupational status: retired current occupation: worked 18 years at [employer] in [place]; served in [email or web address] Other Information That Helps Us Care for You: No other: lives alone in [place]; has 2 children Feels Safe at Home: Yes Safety Concerns: Feels Safe At This Time Smoking Status: Former smoker Hx Alcohol Use: No Hx Substance Use: No Physical Exam Vital Signs (Past 24 Hours): Last Vital Signs Temp 36.5 C 08/25/18 07:52 Pulse 62 08/25/18 07:52 Resp 12 08/25/18 07:52 BP 134/79 08/25/18 07:52 Pulse Ox 94 08/25/18 07:52 Constitutional: WD/WN, vitals as above Musculoskeletal: Patient has a large open wound present on the plantar aspect of the right first MTP joint. His foot is grossly swollen as well. Minor drainage noted on the dressings. He currently has no pain with range of motion of the right foot and ankle.
--- NOTE | 2018-08-25 11:49 | Hospitalist Progress Note ---
Date of Service August 25, 2018 Assessment & Plan (1) Wound of right foot: - Presented with wound on first metatarsal head region, +foul smelling drainage (wound culture as noted below) - CT negative for underlying deep abscess or osteomyelitis. - Venous doppler negative for DVT; arterial duplex was negative for complete occlusion. - MRI showed soft tissue ulceration of plantar soft tissue, subQ edema and diffuse edema involving intrinsic foot musculature; no osteomyelitis. - Wound culture +Proteus species; blood cultures are pending. - Continue Zosyn/Vancomycin for empiric coverage. - Wound nurse consult. - Orthopedics consulted, may require surgical intervention pending MRI results & discontinuation of anticoagulation for 2-3 days. - Partial weight bearing as tolerated on RLE. - Holding anticoagulation therapy for possible procedure. (2) CAD (coronary artery disease): - Has chronic stable angina at home; h/o 3-vessel CABG in 1999. - Follows with Dr. Hernandez; will consult cardiology for pre-op clearance; RCRI score of 2 due to CHF, H/o 3 vessel CABG. - Continue home statin, beta ivy; holding Plavix and Eliquis for possible procedure. (3) Acute electrocardiogram changes: - Pre-op EKG showed T wave inversion in the lateral leads, is a new finding. - Denies cardiac symptoms, including chest pain and SOB. - Trop was 0.029; will repeat level x 2. - Consult cardiology for pre-op testing/clearance due to h/o 3 vessel CABG in the past. (4) Chronic diastolic (congestive) heart failure: - Most recent TTE in August 2017 showed EF 60-65%, mild aortic sclerosis, reduced right ventricular systolic function. - Monitor daily weights. - Continue home Coreg 12.5 mg BID and Bumex 2 mg PO daily. (5) COPD (chronic obstructive pulmonary disease): - No evidence of acute exacerbation. - Continue home Symbicort. (6) Paroxysmal atrial flutter: - EKG showed atrial flutter with 4:1 pattern. - Holding anticoagulation for possible procedure. - Will likely need upgraded to telemetry following procedure for close monitoring. (7) History of mitral valve repair: - Follows with cardiology. (8) BPH (benign prostatic hyperplasia): - Continue Finasteride and Flomax. (9) GERD (gastroesophageal reflux disease): - Hold home Prilosec; Protonix 40 mg qAM. (10) DVT prophylaxis: - Holding Eliquis, Plavix for procedure; will give Heparin 5,000 units x 2 doses today and hold after midnight. Dispo: Med/surg for IV abx and ortho consult. Will need PT/OT evaluation prior to discharge as pt. lives alone. Supervising Physician Co-Signing Physician Notes PA Supervision Note: I did not personally see or examine the patient today, but I verified all betancourt points of HUNTER Tuttle's assessment and plan with the following exceptions/additions: None Subjective Pt. is doing well overall today. He denies pain in right foot at site of wound. Does not have a history of neuropathy and is intact to light sensation over all areas of foot with exception of distal right first toe. He denies SOB, LE edema, N/V, diarrhea. Has CAD -- h/o 3 vessal CABG in 1999, follows with Dr. Hernandez. He has intermittent chest pain at home with exertion -- last episode of chest pain was >2 years ago. Denies acute chest pain during this hospitalization. EKG showed T wave inversions in the lateral leads, new from previous studies. Review of Systems All systems reviewed & are unremarkable except as noted in HPI & below Constitutional: no fever, no chills, no fatigue, no weakness and no anorexia Respiratory: no cough, no dyspnea, no dyspnea on exertion and no wheezing Cardiovascular: no chest pain, no palpitations, no lightheadedness, no syncope and no edema Gastrointestinal: no abdominal pain, no nausea and no constipation Genitourinary (Male): no difficulty urinating Musculoskeletal: no joint pain Integumentary: + lesions (See HPI) Allergy / Immunological: no rash Physical Exam Vital Signs (Past 24 Hours): Last Vital Signs Temp 36.5 C 08/25/18 07:52 Pulse 62 08/25/18 07:52 Resp 12 08/25/18 07:52 BP 134/79 08/25/18 07:52 Pulse Ox 94 08/25/18 07:52 Physical Exam: General: Resting comfortably in no apparent distress; A&OX3 HEENT: NC/AT; PERRLA with EOMI; [place] conjunctiva, MMM. Neck: Supple and nontender Cardiac: Irregular, rate controlled. Lungs: CTA bilaterally Abdomen: Bowel normoactive X 4; Nontender to palpation Extremities: Warm. No edema present. Intact to light sensation with exception of distal right first toe. Neuro: No focal weakness Skin: Open wound located on the planter portion of the first metatarsal with open area +drainage. Results & Data Laboratory Results 08/25/18 08/24/18 08/24/18 Range/Units 09:11 17:34 16:17 WBC (4.8-10.8) K/uL RBC (4.7-6.1) M/uL Hgb (14.0-18.0) g/dL Hct (42-52) % MCV (80-100) fL MCH (25-34) pg MCHC (32-36) g/dL RDW Std Deviation (36.4-46.3) fL RDW Coeff of Michelle (11.5-14.5) % Plt Count (130-400) K/uL MPV (7.4-10.4) fL Immature Gran % (Auto) % Neut % (Auto) % Lymph % (Auto) % [place] % (Auto) % Eos % (Auto) % Baso % (Auto) % Immature Gran # (Auto) (0.00-0.02) K/uL Neut # (Auto) (1.4-6.5) K/uL Lymph # (Auto) (1.2-3.4) K/uL [place] # (Auto) (0.11-0.59) K/uL Eos # (Auto) (0-0.5) K/uL Baso # (Auto) (0-0.2) K/uL PT 12.4 H INR 1.2 H APTT 31.9 H PTT Ratio 1.2 Sodium (136-145) mmol/L Potassium (3.5-5.1) mmol/L Chloride (98-107) mmol/L Carbon Dioxide (21-32) mmol/L Anion Gap (3-11) BUN (7-18) mg/dl Creatinine 1.05 (0.6-1.4) mg/dl Est Cr Clr Drug Dosing 57.1 ml/min Est GFR ( Amer) 73.6 Est GFR (Non-Af Amer) 63.5 BUN/Creatinine Ratio (10-20) Glucose (70-99) mg/dl Lactate 1.1 (0.4-2.0) mmol/L Calcium (8.5-10.1) mg/dl Magnesium (1.8-2.4) mg/dl Total Bilirubin (0.2-1) mg/dl AST (15-37) U/L ALT (12-78) U/L Alkaline Phosphatase (45-117) U/L Troponin I 0.029 (0-0.045) ng/ml Total Protein (6.4-8.2) gm/dl Albumin (3.4-5.0) gm/dl Globulin (2.5-4.0) gm/dl Albumin/Globulin Ratio (0.9-2) 08/24/18 08/24/18 08/24/18 Range/Units 16:17 16:17 16:17 WBC 6.75 (4.8-10.8) K/uL RBC 4.64 L (4.7-6.1) M/uL Hgb 13.2 L (14.0-18.0) g/dL Hct 40.3 L (42-52) % MCV 86.9 (80-100) fL MCH 28.4 (25-34) pg MCHC 32.8 (32-36) g/dL RDW Std Deviation 46.9 H (36.4-46.3) fL RDW Coeff of Michelle 14.8 H (11.5-14.5) % Plt Count 231 (130-400) K/uL MPV 9.6 (7.4-10.4) fL Immature Gran % (Auto) 0.3 % Neut % (Auto) 70.6 % Lymph % (Auto) 12.1 % [place] % (Auto) 14.1 % Eos % (Auto) 2.5 % Baso % (Auto) 0.4 % Immature Gran # (Auto) 0.02 (0.00-0.02) K/uL Neut # (Auto) 4.76 (1.4-6.5) K/uL Lymph # (Auto) 0.82 L (1.2-3.4) K/uL [place] # (Auto) 0.95 H (0.11-0.59) K/uL Eos # (Auto) 0.17 (0-0.5) K/uL Baso # (Auto) 0.03 (0-0.2) K/uL PT Cancelled INR Cancelled APTT Cancelled PTT Ratio Cancelled Sodium 141 (136-145) mmol/L Potassium 3.8 (3.5-5.1) mmol/L Chloride 105 (98-107) mmol/L Carbon Dioxide 31 (21-32) mmol/L Anion Gap 5.0 (3-11) BUN 20 H (7-18) mg/dl Creatinine 1.05 (0.6-1.4) mg/dl Est Cr Clr Drug Dosing 49.6 ml/min Est GFR ( Amer) 73.6 Est GFR (Non-Af Amer) 63.5 BUN/Creatinine Ratio 18.9 (10-20) Glucose 82 (70-99) mg/dl Lactate (0.4-2.0) mmol/L Calcium 8.1 L (8.5-10.1) mg/dl Magnesium 1.8 (1.8-2.4) mg/dl Total Bilirubin 0.8 (0.2-1) mg/dl AST 37 (15-37) U/L ALT 32 (12-78) U/L Alkaline Phosphatase 117 (45-117) U/L Troponin I (0-0.045) ng/ml Total Protein 6.6 (6.4-8.2) gm/dl Albumin 2.8 L (3.4-5.0) gm/dl Globulin 3.8 (2.5-4.0) gm/dl Albumin/Globulin Ratio 0.7 L (0.9-2) (1) BPH (benign prostatic hyperplasia) Lower urinary tract symptom presence: symptoms absent Qualified Code(s): N40.0 - Benign prostatic hyperplasia without lower urinary tract symptoms (2) CAD (coronary artery disease) Associated angina: without angina Coronary Disease-Associated Artery/Lesion type: [place] artery [place] vs. transplanted heart: [place] heart Qualified Code(s): I25.10 - Atherosclerotic heart disease of [place] coronary artery without angina pectoris (3) COPD (chronic obstructive pulmonary disease) COPD type: unspecified COPD Qualified Code(s): J44.9 - Chronic obstructive pulmonary disease, unspecified (4) GERD (gastroesophageal reflux disease) Esophagitis presence: without esophagitis Qualified Code(s): K21.9 - Gastro- esophageal reflux disease without esophagitis
[2018-08-25] MEDS: HEPARIN SOD 5,000 UNIT/0.5 ML VIAL SQ SCH ×2 (12:41→20:38)
--- NOTE | 2018-08-25 13:17 | XRay Report ---
ORBIT RADIOGRAPHS 3 VIEWS HISTORY: pre-MRI screening. COMPARISON: None. FINDINGS: There are no radiopaque foreign bodies identified within the orbits. IMPRESSION: No radiopaque foreign bodies identified within the orbits. Electronically signed by: Sánchez Licea M.D. 08/25/2018 1:16 PM
[2018-08-25] MEDS ORDERED: GADOBUTROL 65ML VIAL IV PRN (14:17)
--- NOTE | 2018-08-25 14:30 | Magnetic Resonance Report ---
MR foot RT wo/w con CLINICAL HISTORY: right foot infection plantar ulceration. COMPARISON STUDY: CT scan dated 08/24/2018 FINDINGS: Imaging was performed in the axial, sagittal, and coronal planes, before and after the admi nistration of 9 cc of intravenous Gadavist. There is a soft tissue ulceration involving the plantar soft tissues at the level of the first metata rsal phalangeal joint. There are no areas of marrow edema to indicate osteomyelitis. There are no fluid collections to indicate a drainable abscess. There is soft tissue edema, most pronounced laterally. There is diffuse edema within the intrinsic foot musculature. IMPRESSION: 1. Soft tissue ulceration involving the plantar soft tissues at the level the first metatarsal phalan geal joint 2. Subcutaneous edema 3. No evidence of osteomyelitis 4. Diffuse edema involving the intrinsic foot musculature 5. No evidence of abscess Electronically signed by: Ramakrishna Pagan M.D. 08/25/2018 2:29 PM
[2018-08-25] MEDS: FINASTERIDE 5 MG TAB PO SCH (20:40)
[2018-08-25] MEDS: TAMSULOSIN HCL 0.4 MG CAP PO SCH (20:40)
[2018-08-25] MEDS: ATORVASTATIN 40 MG TAB PO SCH (20:40)
--- NOTE | 2018-08-25 21:46 | Cardiology Consultation ---
Date of Consultation August 25, 2018 Assessment & Plan (1) CAD (coronary artery disease): He has a long history of coronary artery disease. In the past there was some concern that he had anginal symptoms. He has not had symptoms of chest discomfort, angina or use my nitroglycerin in some time. However, he is very sedentary. Whether he performs 4 metabolic equivalents of activity on a routine basis is unclear. He seems to undergoing a low risk surgery. Given the absence of significant symptoms or abnormal findings on exam, and in the setting of a low risk surgery, I do not believe any additional cardiovascular testing is necessary. It seems a surgery will be necessary in any event. Observing the standard precautions which would limit myocardial oxygen demand and maximize myocardial oxygen delivery are recommended. This would involve maintaining good oxygenation, avoiding significant anemia, avoiding tachycardia, hypertension or hypotension. (2) Chronic diastolic (congestive) heart failure: He has permanent atrial flutter. He has adequate rate control. He has been maintained on systemic anticoagulation which is currently being held for his procedure. Reinstitution of anticoagulation should be performed at the discretion of the surgeons postoperatively. (3) Atrial flutter: In the past he has had some decompensated diastolic heart failure. He is known to have preserved LV systolic function. Currently he appears to be euvolemic. He can continue his usual outpatient diuretic regimen. I would avoid significant volume administration in the perioperative period. History of Present Illness Reason for Consultation: Pre-op Requesting Physician: Nancie Attending Physician: Nancy Canada MD History of Present Illness Patient is a 88-year-old past grafting in the year 1999. This was accompanied by mitral valve repair. The patient has been stable on an outpatient basis but recently discovered an ulceration on his right foot. He presented to [facility] for evaluation and will likely need to undergo operative intervention for debridement. In general he is a very sedentary individual. He is able to ambulate around his residence perform the usual household work such as vacuuming and cleaning bathrooms. However, he does not do much work outside. He does not exercise regularly or go for long walks. He seems to be limited primarily by lower extremity discomfort and weakness. When he goes to the grocery store he generally uses a motorized he does not describe limiting dyspnea. He has had some occasional chest pain over the years and use nitroglycerin on rare occasions. However, he does not use nitroglycerin or suffer from chest pain in some time now. He does not report orthopnea or paroxysmal nocturnal dyspnea. Is not known to have swelling in his lower extremities. Allergies Allergy/AdvReac Type Severity Reaction Status Date / Time aspirin AdvReac Intermediate GI Verified 08/24/18 17:22 ULCERATION- WHEN TAKEN WITH COUMADIN black pepper AdvReac Mild Verified 08/24/18 17:22 lisinopril AdvReac Mild Verified 08/24/18 17:22 Sulfa (Sulfonamide AdvReac Unknown "SULFA Verified 08/24/18 17:22 Antibiotics) DRUGS": HAS TOLERATED LASIX IN PAST Home Medications Home Medications Medication Instructions Recorded Confirmed Type apixaban [Eliquis] 5 mg PO BID 08/24/18 08/24/18 History atorvastatin 40 mg PO QPM 08/24/18 08/24/18 History budesonide-formoterol [Symbicort] 1 puff INHALATION BID 08/24/18 08/24/18 History bumetanide 2 mg PO DAILY 08/24/18 08/24/18 History carvedilol [Coreg] 12.5 mg PO BID 08/24/18 08/24/18 History clopidogrel [Plavix] 75 mg PO DAILY 08/24/18 08/24/18 History finasteride 5 mg PO QPM 08/24/18 08/24/18 History nitroglycerin 0.4 mg SUBLINGUAL UD 08/24/18 08/24/18 History omeprazole 20 mg PO DAILY 08/24/18 08/24/18 History potassium chloride [Klor-Con M20] 20 meq PO DAILY 08/24/18 08/24/18 History tamsulosin [Flomax] 0.4 mg PO QPM 08/24/18 08/24/18 History Patient History Medical History BPH (benign prostatic hyperplasia) COPD (chronic obstructive pulmonary disease) Chronic diastolic (congestive) heart failure Hyperlipidemia 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 Paroxysmal atrial flutter Hypertension (Chronic) Mitral valve disorder (Chronic) CHF (congestive heart failure) (Resolved) Surgical History H/O mitral valve repair 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 Pertinent positives noted in the history of present illness. He does not report any recent constitutional symptoms such as fevers or chills. Currently no pain in the right foot. He does not report dizziness or lightheadedness. He is not aware of any palpitations. He is not recently suffered a syncopal episode. Physical Exam Vital Signs (Past 24 Hours): Last Vital Signs Temp 36.4 C L 08/25/18 15:14 Pulse 60 08/25/18 15:14 Resp 17 08/25/18 15:14 BP 125/69 08/25/18 15:14 Pulse Ox 94 08/25/18 15:14 Physical Exam: The patient is alert and oriented. Mood and affect appeared normal. He answered all questions appropriately. HEENT: Pupils are equal and reactive to light and accommodation. Extraocular movements are intact. The sclerae are anicteric. Neuro: Cranial nerves intact Neck: Patient's neck is supple. He has palpable carotid pulses bilaterally without bruits on auscultation. There is no evidence of jugular venous distention. The thyroid is not enlarged. Lungs: Occasional crackle in the left base. Normal respiratory effort. Cardiac: Heart demonstrates a regular rate and rhythm. Normal S1 and S2. No murmurs on examination. Pulses: The patient has palpable radial pulses bilaterally that are equal in intensity Extremities: There was no evidence of hypoperfusion. There is no cyanosis or clubbing. There is no edema. The right foot is bandaged Skin: I did not appreciate any rashes on examination today. Atrial fibrillation Results & Data Laboratory Results Abnormal Lab Results 08/25/18 08/25/18 08/25/18 09:11 14:35 19:33 Creatinine 1.05 Est Cr Clr Drug Dosing 57.1 Est GFR ( Amer) 73.6 Est GFR (Non-Af Amer) 63.5 Troponin I 0.029 0.025 0.026 Diagnostic Findings MRI did not demonstrate any evidence of osteomyelitis. Echocardiogram performed 08/2017 demonstrated preserved LV systolic function. No significant valvular heart disease. ECG Additional Comments: EKG demonstrated an atrial flutter with 4-[address] and T wave changes. (1) CAD (coronary artery disease) Coronary Disease-Associated Artery/Lesion type: [place] artery [place] vs. transplanted heart: [place] heart Associated angina: without angina Qualified Code(s): I25.10 - Atherosclerotic heart disease of [place] coronary artery without angina pectoris
[2018-08-26 06:53] LABS: Hematocrit (blood only) 39.8 % (42-52); Hemoglobin 12.9 g/dL (14.0-18.0); Mean Corpuscular Hgb Conc 32.4 g/dL (32-36); Mean Corpuscular Volume 86.1 fL (80-100); Mean Platelet Volume 9.5 fL (7.4-10.4); Platelet Count 203 K/uL (130-400); RDW Coefficient of Variation 14.8 % (11.5-14.5); RDW Standard Deviation 46.8 fL (36.4-46.3); Red Blood Count 4.62 M/uL (4.7-6.1)
[2018-08-26 07:29] LABS: BUN Creatinine Ratio 16.9 (10-20); Calcium 8.1 mg/dl (8.5-10.1); Creatinine Clr Calc Pharmacy 52.8 ml/min; Est GFR (African American) 73.6; Est GFR (Non-African American) 63.5; Magnesium 1.9 mg/dl (1.8-2.4); Potassium 4.2 mmol/L (3.5-5.1)
[2018-08-26] MEDS: BUDESONIDE/FORMOTEROL FUMARATE 160/4.5 60 PUFFS/INHALER INH SCH ×2 (09:16→21:06)
[2018-08-26] MEDS: PIPERACILLIN/TAZOBACTAM 3.375 GM in DEXTROSE 5% 100 ML IV SCH ×3 (09:16→22:33)
[2018-08-26] MEDS: BUMETANIDE 1 MG TAB PO SCH (09:17)
[2018-08-26] MEDS: CARVEDILOL 12.5 MG TAB PO SCH ×2 (09:17→21:05)
[2018-08-26] MEDS: LACTOBACILLUS ACIDOPHILUS (FLORANEX) TAB PO SCH ×3 (09:19→17:12)
[2018-08-26] MEDS: PANTOprazole 40 MG TAB PO SCH (09:19)
[2018-08-26] MEDS: POTASSIUM CHLORIDE 20 MEQ TABCR PO SCH (09:20)
--- NOTE | 2018-08-26 10:32 | Cardiology Progress Note ---
Date of Service August 26, 2018 Assessment & Plan (1) Chronic diastolic (congestive) heart failure: 2. Coronary disease status post three-vessel CABG in 2000--on Plavix secondary to aspirin allergy 3. Persistent atrial flutter--on chronic Eliquis 4. History of mitral valve repair 5. Hypertension--well-controlled on current therapy 6. Preoperative cardiovascular examination prior to right foot ulceration debridement Patient stable from a cardiovascular standpoint. Okay to proceed with planned low risk surgery without additional cardiac testing. No evidence of significant peripheral arterial disease on lower extremity arterial duplex. Continue home beta-ivy, statin and maintenance diuretics. Resume Eliquis when safe from a surgical standpoint. Subjective No events overnight. No new concerns today. Denies chest pain or shortness of breath. Review of Systems 10 point review of systems was completed and was otherwise negative unless stated in HPI Physical Exam Vital Signs (Past 24 Hours): Last Vital Signs Temp 36.7 C 08/26/18 07:04 Pulse 61 08/26/18 07:04 Resp 16 08/26/18 07:04 BP 125/76 08/26/18 07:04 Pulse Ox 90 08/26/18 07:04 Physical Exam: General: Comfortable, no acute distress Eyes: Sclerae anicteric, extraocular movements intact HENT: Oropharynx clear mucous membranes moist Neck: Normal carotid upstrokes, no bruits. No JVD. Lungs: Clear to auscultation bilaterally Cardiac: Regular rate and rhythm, no murmurs, Vascular: 2+ radial, PT pulses Abdomen: Soft, nontender, nondistended, positive bowel sounds. Extremities: Well perfused, no peripheral edema, right lower extremity dressing in place, odor persists Neuro: Nonfocal Psych: Alert, normal affect and mood
[2018-08-26] MEDS ORDERED: VANCOMYCIN TROUGH ONE (11:30)
[2018-08-26] MEDS: VANCOMYCIN HCL 1,000 MG in SODIUM CHLORIDE 0.9% 250 ML IV SCH (12:35)
--- NOTE | 2018-08-26 14:06 | Pharmacy Report ---
Pharmacy Abx Dose Short Note - Date of Service August 26, 2018 - Assessment & Plan Assessment 88 year old M receiving Vancomycin + Zosyn for treatment of SST (osteo r/o) Cultures growing proteus (pansensitive) and strep sp (sensitivities to follow) Day # 3 of antimicrobial therapy. Plan Vancomycin * Trough level of 10.7 mcg/mL is near- therapeutic. Dosing is not quite at steady state and accumulation/increased trough levels likely to occur with repeated dosing. * Continue dose of 1,000 mg IV every 14 hours * Goal trough level for SST : 10 to 20 mcg/mL based on c/s * Repeat trough ordered for: 08/28/18 @ 0600 Pharmacy will continue to follow and will adjust dose/frequency as necessary. Thank you.
--- NOTE | 2018-08-26 15:01 | Orthopedic Progress Note ---
Date of Service August 26, 2018 Assessment & Plan (1) Wound of right foot: Waiting to hear from DR Narvaez for his input. Possible debridement tomorrow. Will make NPO for tomorrow. Subjective Pt lying in bed. No complaints noted today. Physical Exam Vital Signs (Past 24 Hours): Last Vital Signs Temp 36.7 C 08/26/18 07:04 Pulse 61 08/26/18 07:04 Resp 16 08/26/18 07:04 BP 125/76 08/26/18 07:04 Pulse Ox 90 08/26/18 07:04 Physical Exam: Dressing removed from Right foot. Foul odor noticed. 3 to 4 cm darkened area noted on the plantar surface of the 1st MTP joint area. One area of abvious callous. Other area demarcating and soft mainly on the medial aspect. Mild pain on palpation of that area. No overt drainage noted. States great toe feels numb but able to move the toe. Redressed. Results & Data Diagnostic Findings [place], [place] [phone] Magnetic Resonance Report Patient: GENE WOLFEAdmit Date: 08/24/18 MR#: [id number] Acct ID:[id number]: Date: 1930[facility] Zip: [place] [address] Age: 88Location: 3N Sex: M [facility] Att Phy: Nancy Canada MDDiagnosis: R FOOT INFECTION Karly Phy: Karson Moran M.D.Service Date: 08/25/18 Fam Phy: Interpreting Phy: Ramakrishna Pagan MD Admit Phy: Compa Delatorre MD Ordering Phy: Santiago Cleveland DO cc: ~ MR foot RT wo/w con CLINICAL HISTORY: right foot infection plantar ulceration. COMPARISON STUDY: CT scan dated 08/24/2018 FINDINGS: Imaging was performed in the axial, sagittal, and coronal planes, before and after the administration of 9 cc of intravenous Gadavist. There is a soft tissue ulceration involving the plantar soft tissues at the level of the first metatarsal phalangeal joint. There are no areas of marrow edema to indicate osteomyelitis. There are no fluid collections to indicate a drainable abscess. There is soft tissue edema, most pronounced laterally. There is diffuse edema within the intrinsic foot musculature. IMPRESSION: 1. Soft tissue ulceration involving the plantar soft tissues at the level the first metatarsal phalangeal joint 2. Subcutaneous edema 3. No evidence of osteomyelitis 4. Diffuse edema involving the intrinsic foot musculature 5. No evidence of abscess
--- NOTE | 2018-08-26 16:25 | Hospitalist Progress Note ---
Date of Service August 26, 2018 Assessment & Plan (1) Wound of right foot: - Presented with wound on first metatarsal head region, +foul smelling drainage. - CT negative for underlying deep abscess or osteomyelitis. - Venous doppler negative for DVT; arterial duplex was negative for complete occlusion. - MRI was negative for osteomyelitis. - Wound culture +Proteus & Streptococcus; blood cultures negative to date. - Continue Zosyn IV for empiric coverage; will d/c Vanco. - Wound nurse consulted. - Orthopedics consulted, NPO after midnight for possible intervention on 08/27/18. - Partial weight bearing as tolerated on RLE. - Will consult ID for recs on abx and length of treatment course. (2) CAD (coronary artery disease): - Has chronic stable angina at home; h/o 3-vessel CABG in 1999. - Follows with Dr. Hernandez; cleared by cardiology for procedure. - Continue home statin, beta ivy; holding Plavix and Eliquis for possible procedure. (3) Acute electrocardiogram changes: - Pre-op EKG showed T wave inversion in the lateral leads. - Denies cardiac symptoms, including chest pain and SOB. - Trop levels were negative. - Consult cardiology, approved pre-operatively. (4) Chronic diastolic (congestive) heart failure: - Most recent TTE in August 2017 showed EF 60-65%, mild aortic sclerosis, reduced right ventricular systolic function. - Monitor daily weights - weight decreased ~5 kg, is likely not accurate. - Continue home Coreg 12.5 mg BID and Bumex 2 mg PO daily. (5) COPD (chronic obstructive pulmonary disease): - No evidence of acute exacerbation. - Continue home Symbicort. (6) Paroxysmal atrial flutter: - EKG showed atrial flutter with 4:1 pattern. - Holding anticoagulation for possible procedure. - Will likely need upgraded to telemetry following procedure for close monitoring. (7) History of mitral valve repair: - Follows with cardiology. (8) BPH (benign prostatic hyperplasia): - Continue Finasteride and Flomax. (9) GERD (gastroesophageal reflux disease): - Hold home Prilosec; Protonix 40 mg qAM. (10) DVT prophylaxis: - Holding Eliquis, Plavix for procedure. Dispo: Med/surg for IV abx and ortho consult. Will need PT/OT evaluation prior to discharge as pt. lives alone. Supervising Physician Co-Signing Physician Notes PA Supervision Note: I did not personally see or examine the patient today, but I verified all [place] points of HUNTER Tuttle's assessment and plan with the following exceptions/additions: None Subjective Pt. is doing well. He denies pain in right foot but does have neuropathy. Had a large BM this afternoon. Plan for ortho evaluation by Dr. Narvaez, may require OR intervention on 08/27/18. Review of Systems All systems reviewed & are unremarkable except as noted in HPI & below Constitutional: no fever, no chills, no fatigue, no weakness and no anorexia Respiratory: no cough and no dyspnea Cardiovascular: no chest pain, no palpitations, no syncope and no edema Gastrointestinal: no abdominal pain, no nausea and no constipation Genitourinary (Male): no difficulty urinating Musculoskeletal: no joint pain Integumentary: + non-healing lesions (Right foot ) Allergy / Immunological: no rash Physical Exam Vital Signs (Past 24 Hours): Last Vital Signs Temp 36.2 C L 08/26/18 15:34 Pulse 61 08/26/18 15:34 Resp 18 08/26/18 15:34 BP 158/72 H 08/26/18 15:34 Pulse Ox 93 08/26/18 15:34 Physical Exam: General: Resting comfortably in no apparent distress; A&OX3 HEENT: NC/AT; PERRLA with EOMI; [place] conjunctiva, MMM. Neck: Supple and nontender Cardiac: Irregular, rate controlled. Lungs: CTA bilaterally Abdomen: Bowel normoactive X 4; Nontender to palpation Extremities: Warm. No edema present. Neuro: No focal weakness Skin: Open wound located on the planter portion of the first metatarsal - did not remove dressing on exam. Results & Data Laboratory Results 08/26/18 08/26/18 08/26/18 Range/Units 11:35 06:30 06:30 WBC 5.80 (4.8-10.8) K/uL RBC 4.62 L (4.7-6.1) M/uL Hgb 12.9 L (14.0-18.0) g/dL Hct 39.8 L (42-52) % MCV 86.1 (80-100) fL MCH 27.9 (25-34) pg MCHC 32.4 (32-36) g/dL RDW Std Deviation 46.8 H (36.4-46.3) fL RDW Coeff of Michelle 14.8 H (11.5-14.5) % Plt Count 203 (130-400) K/uL MPV 9.5 (7.4-10.4) fL Sodium 140 (136-145) mmol/L Potassium 4.2 (3.5-5.1) mmol/L Chloride 107 (98-107) mmol/L Carbon Dioxide 30 (21-32) mmol/L Anion Gap 3.0 (3-11) BUN 18 (7-18) mg/dl Creatinine 1.05 (0.6-1.4) mg/dl Est Cr Clr Drug Dosing 52.8 ml/min Est GFR ( Amer) 73.6 Est GFR (Non-Af Amer) 63.5 BUN/Creatinine Ratio 16.9 (10-20) Glucose 91 (70-99) mg/dl Calcium 8.1 L (8.5-10.1) mg/dl Magnesium 1.9 (1.8-2.4) mg/dl Troponin I (0-0.045) ng/ml Vancomycin Trough 10.7 (See Comment) mcg/ml 08/25/18 Range/Units 19:33 WBC (4.8-10.8) K/uL RBC (4.7-6.1) M/uL Hgb (14.0-18.0) g/dL Hct (42-52) % MCV (80-100) fL MCH (25-34) pg MCHC (32-36) g/dL RDW Std Deviation (36.4-46.3) fL RDW Coeff of Michelle (11.5-14.5) % Plt Count (130-400) K/uL MPV (7.4-10.4) fL Sodium (136-145) mmol/L Potassium (3.5-5.1) mmol/L Chloride (98-107) mmol/L Carbon Dioxide (21-32) mmol/L Anion Gap (3-11) BUN (7-18) mg/dl Creatinine (0.6-1.4) mg/dl Est Cr Clr Drug Dosing ml/min Est GFR ( Amer) Est GFR (Non-Af Amer) BUN/Creatinine Ratio (10-20) Glucose (70-99) mg/dl Calcium (8.5-10.1) mg/dl Magnesium (1.8-2.4) mg/dl Troponin I 0.026 (0-0.045) ng/ml Vancomycin Trough (See Comment) mcg/ml (1) BPH (benign prostatic hyperplasia) Lower urinary tract symptom presence: symptoms absent Qualified Code(s): N40.0 - Benign prostatic hyperplasia without lower urinary tract symptoms (2) CAD (coronary artery disease) Associated angina: without angina Coronary Disease-Associated Artery/Lesion type: [place] artery [place] vs. transplanted heart: [place] heart Qualified Code(s): I25.10 - Atherosclerotic heart disease of [place] coronary artery without angina pectoris (3) COPD (chronic obstructive pulmonary disease) COPD type: unspecified COPD Qualified Code(s): J44.9 - Chronic obstructive pulmonary disease, unspecified (4) GERD (gastroesophageal reflux disease) Esophagitis presence: without esophagitis Qualified Code(s): K21.9 - Gastro- esophageal reflux disease without esophagitis
[2018-08-26] MEDS: FINASTERIDE 5 MG TAB PO SCH (21:05)
[2018-08-26] MEDS: TAMSULOSIN HCL 0.4 MG CAP PO SCH (21:06)
[2018-08-26] MEDS: ATORVASTATIN 40 MG TAB PO SCH (21:06)
[2018-08-27 07:01] LABS: Hemoglobin 12.4 g/dL (14.0-18.0); Mean Corpuscular Hgb Conc 32.6 g/dL (32-36); Mean Corpuscular Volume 85.4 fL (80-100); Mean Platelet Volume 9.2 fL (7.4-10.4); Platelet Count 204 K/uL (130-400); RDW Coefficient of Variation 14.7 % (11.5-14.5); RDW Standard Deviation 45.7 fL (36.4-46.3); Red Blood Count 4.45 M/uL (4.7-6.1); White Blood Count 6.17 K/uL (4.8-10.8)
[2018-08-27 07:24] LABS: INR 1.2 (0.9-1.1); Prothrombin Time 12.6 Seconds (9.0-12.0)
[2018-08-27] MEDS: PIPERACILLIN/TAZOBACTAM 3.375 GM in DEXTROSE 5% 100 ML IV SCH ×3 (07:35→22:43)
[2018-08-27 07:40] LABS: BUN Creatinine Ratio 17.9 (10-20); Calcium 8.3 mg/dl (8.5-10.1); Creatinine Clr Calc Pharmacy 57.7 ml/min; Est GFR (Non-African American) 70.8; Magnesium 1.9 mg/dl (1.8-2.4); Potassium 3.8 mmol/L (3.5-5.1)
[2018-08-27] MEDS: LACTOBACILLUS ACIDOPHILUS (FLORANEX) TAB PO SCH ×3 (07:52→21:03)
[2018-08-27] MEDS: PANTOprazole 40 MG TAB PO SCH (07:53)
[2018-08-27] MEDS: CARVEDILOL 12.5 MG TAB PO SCH ×2 (07:53→21:05)
[2018-08-27] MEDS: POTASSIUM CHLORIDE 20 MEQ TABCR PO SCH (07:53)
[2018-08-27] MEDS: BUMETANIDE 1 MG TAB PO SCH (07:55)
[2018-08-27] MEDS: BUDESONIDE/FORMOTEROL FUMARATE 160/4.5 60 PUFFS/INHALER INH SCH ×2 (07:55→21:06)
--- NOTE | 2018-08-27 08:39 | Infectious Disease Consult ---
Date of Consultation August 27, 2018 Assessment & Plan (1) Cellulitis of right foot: Patient with cellulitis and developing abscess of right foot with cultures positive for Proteus and Streptococcus. Agree with need for operative debridement. Would continue patient on IV Zosyn for now, with length of IV therapy to be determined by findings at operation and clinical response. Will follow. (2) Streptococcal infection: (3) Proteus mirabilis infection: History of Present Illness Reason for Consultation: Right foot infection Attending Physician: Nancy Canada MD History of Present Illness 88-year-old male with history of coronary artery disease and mitral valve disease, hypertension, diastolic heart failure, who was in usual state of health until several weeks ago when he noticed a callus on the plantar surface of his right foot. He did not have any associated pain, swelling, redness, and so did not seek further attention, but then developed relatively sudden onset of foul- smelling drainage from the wound. He did not have any associated fever or chills. He was eventually brought to the hospital and admitted for further management. Cultures from the wound have now grown Proteus and Streptococcus. MRI scan of the foot shows no evidence of osteomyelitis but with significant soft tissue infection. Has been treated with vancomycin and Zosyn, currently on Zosyn alone. Continues to deny any pain in his foot. Plans for probable operative debridement later today. Allergies Allergy/AdvReac Type Severity Reaction Status Date / Time aspirin AdvReac Intermediate GI Verified 08/24/18 17:22 ULCERATION- WHEN TAKEN WITH COUMADIN black pepper AdvReac Mild Verified 08/24/18 17:22 lisinopril AdvReac Mild Verified 08/24/18 17:22 Sulfa (Sulfonamide AdvReac Unknown "SULFA Verified 08/24/18 17:22 Antibiotics) DRUGS": HAS TOLERATED LASIX IN PAST Home Medications Home Medications Medication Instructions Recorded Confirmed Type apixaban [Eliquis] 5 mg PO BID 08/24/18 08/24/18 History atorvastatin 40 mg PO QPM 08/24/18 08/24/18 History budesonide-formoterol [Symbicort] 1 puff INHALATION BID 08/24/18 08/24/18 History bumetanide 2 mg PO DAILY 08/24/18 08/24/18 History carvedilol [Coreg] 12.5 mg PO BID 08/24/18 08/24/18 History clopidogrel [Plavix] 75 mg PO DAILY 08/24/18 08/24/18 History finasteride 5 mg PO QPM 08/24/18 08/24/18 History nitroglycerin 0.4 mg SUBLINGUAL UD 08/24/18 08/24/18 History omeprazole 20 mg PO DAILY 08/24/18 08/24/18 History potassium chloride [Klor-Con M20] 20 meq PO DAILY 08/24/18 08/24/18 History tamsulosin [Flomax] 0.4 mg PO QPM 08/24/18 08/24/18 History Patient History Medical History BPH (benign prostatic hyperplasia) COPD (chronic obstructive pulmonary disease) Chronic diastolic (congestive) heart failure Hyperlipidemia 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 Paroxysmal atrial flutter Hypertension (Chronic) Mitral valve disorder (Chronic) CHF (congestive heart failure) (Resolved) Surgical History 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 Family History Father Asthma Heart disease Mother Leukemia Social History Communication Ability: Effective Beliefs That Will Affect Care: None marital status: / Current Living Situation: Alone current occupational status: retired current occupation: worked 18 years at [employer] in [place]; served in [employer] Other Information That Helps Us Care for You: No other: lives alone in [place]; has 2 children Feels Safe at Home: Yes Safety Concerns: Feels Safe At This Time Smoking Status: Former smoker Hx Alcohol Use: No Hx Substance Use: No Review of Systems All systems were reviewed and are negative except as per HPI Physical Exam Vital Signs (Past 24 Hours): Last Vital Signs Temp 36.6 C 08/27/18 07:35 Pulse 61 08/27/18 07:35 Resp 17 08/27/18 07:35 BP 144/82 H 08/27/18 07:35 Pulse Ox 94 08/27/18 07:35 Constitutional: WD/WN, vitals as above comfortable; no acute distress Eyes: PERRL, conjunctivae normal, anicteric sclerae ENMT: external ear and nose normal, oropharynx normal Neck: trachea midline, no thyromegaly neck nontender Respiratory: normal respiratory effort, lungs clear to auscultation normal percussion; does not use accessory muscles Cardiovascular: Rate/Rhythm: regular rate and regular rhythm Heart Sounds: normal S1 and normal S2; no gallop, no murmur and no cardiac rub Vessels: normal peripheral pulses; no JVD Gastrointestinal (Abdomen): normal bowel sounds, soft, nontender, no hepatosplenomegaly Musculoskeletal: no cyanosis or clubbing, extremities motor strength 5/5 Spine: thoracic spine normal to inspection and lumbar spine normal to inspection; no cervical spinal tenderness Skin: normal turgor and + wound (Plantar surface right foot an area of first metatarsal, no foul odor at present) Neurologic: patellar DTR's 2+ bilat, sensation intact no focal motor deficits Psychiatric: A+Ox3, euthymic affect Orientation: cooperative Lymphatic: no cervical or axillary lymphadenopathy no inguinal lymphadenopathy Results & Data Laboratory Results Short CBC 08/27/18 Range/Units 06:16 WBC 6.17 (4.8-10.8) K/uL Hgb 12.4 L (14.0-18.0) g/dL Hct 38.0 L (42-52) % Plt Count 204 (130-400) K/uL BMP 08/27/18 06:16 Sodium 142 Potassium 3.8 Chloride 109 H Carbon Dioxide 27 BUN 17 Creatinine 0.96 Glucose 84 Calcium 8.3 L Diagnostic Findings Microbiology 08/24/18 15:40 Foot,Right Gram Stain - Final 08/24/18 15:40 Foot,Right Deep Wound Culture - Preliminary Proteus mirabilis Streptococcus species 08/24/18 16:27 Blood Blood Culture - Preliminary No growth to date. 08/24/18 16:17 Blood Blood Culture - Preliminary No growth to date. MR foot RT wo/w con CLINICAL HISTORY: right foot infection plantar ulceration. COMPARISON STUDY: CT scan dated 08/24/2018 FINDINGS: Imaging was performed in the axial, sagittal, and coronal planes, before and after the administration of 9 cc of intravenous Gadavist. There is a soft tissue ulceration involving the plantar soft tissues at the level of the first metatarsal phalangeal joint. There are no areas of marrow edema to indicate osteomyelitis. There are no fluid collections to indicate a drainable abscess. There is soft tissue edema, most pronounced laterally. There is diffuse edema within the intrinsic foot musculature. IMPRESSION: 1. Soft tissue ulceration involving the plantar soft tissues at the level the first metatarsal phalangeal joint 2. Subcutaneous edema 3. No evidence of osteomyelitis 4. Diffuse edema involving the intrinsic foot musculature 5. No evidence of abscess
--- NOTE | 2018-08-27 09:59 | Anesthesiology Consultation ---
Date of Service August 27, 2018 Assessment & Plan Chart Review Chart Review: Acceptable Risk for Surgery and clerk entry level initiated Consults Requested none Additional Notes 88 yo male who presented with right foot infection without evidence of osteo and scheduled for IandD in the operating room on 08/27/18. PMH significant for CAD s/p CABG and paroxysmal aflutter. Anticoagulation has been on hold since admission and cardiology has seen and feels patient is optimized for planned procedure. PMH otherwise significant for COPD, chronic diastolic congestive heart failure, GERD and BPH. NPO Date Last Intake of Fluids: 08/26/18 Time Last Intake of Fluids: 23:59 Date Last Intake of Solids: 08/26/18 Time Last Intake of Solids: 23:59 History Surgery Operation Date: 08/27/18 07:00 Proposed Procedures p Right Foot Ulcer Irrigation and Debridement - Chadd Narvaez DO Height/Weight Height: 5 ft 11 in Weight: 84.4 kg Allergies Allergy/AdvReac Type Severity Reaction Status Date / Time aspirin AdvReac Intermediate GI Verified 08/24/18 17:22 ULCERATION- WHEN TAKEN WITH COUMADIN black pepper AdvReac Mild Verified 08/24/18 17:22 lisinopril AdvReac Mild Verified 08/24/18 17:22 Sulfa (Sulfonamide AdvReac Unknown "SULFA Verified 08/24/18 17:22 Antibiotics) DRUGS": HAS TOLERATED LASIX IN PAST Medications Home Medications Medication Instructions Recorded Confirmed Last Taken apixaban [Eliquis] 5 mg PO BID 08/24/18 08/24/18 08/24/18 atorvastatin 40 mg PO QPM 08/24/18 08/24/18 Unknown budesonide-formoterol [Symbicort] 1 puff INHALATION BID 08/24/18 08/24/18 Unknown bumetanide 2 mg PO DAILY 08/24/18 08/24/18 08/24/18 carvedilol [Coreg] 12.5 mg PO BID 08/24/18 08/24/18 08/24/18 clopidogrel [Plavix] 75 mg PO DAILY 08/24/18 08/24/18 08/24/18 finasteride 5 mg PO QPM 08/24/18 08/24/18 Unknown nitroglycerin 0.4 mg SUBLINGUAL UD 08/24/18 08/24/18 Unknown omeprazole 20 mg PO DAILY 08/24/18 08/24/18 08/24/18 potassium chloride [Klor-Con M20] 20 meq PO DAILY 08/24/18 08/24/18 08/24/18 tamsulosin [Flomax] 0.4 mg PO QPM 08/24/18 08/24/18 Unknown Active Medications Generic Name Dose Route Start Last Admin Trade Name Freq PRN Reason Stop Dose Admin Atorvastatin Calcium 40 mg 08/24/18 21:10 08/26/18 21:06 Lipitor PO 09/23/18 21:09 40 mg QPM MODESTA Administration Budesonide/Formoterol Fumarate 1 puffs 08/24/18 21:10 08/27/18 07:55 Symbicort 160mcg/4.5mcg INH 09/23/18 21:09 1 puffs BID MODESTA Administration Bumetanide 2 mg 08/25/18 09:00 08/27/18 07:55 Bumex PO 09/24/18 08:59 2 mg DAILY MODESTA Administration Carvedilol 12.5 mg 08/24/18 21:10 08/27/18 07:53 Coreg PO 09/23/18 21:09 12.5 mg BID MODESTA Administration Finasteride 5 mg 08/24/18 21:10 08/26/18 21:05 Proscar PO 09/23/18 21:09 5 mg QPM MODESTA Administration Gadobutrol 9 ml 08/25/18 14:17 08/25/18 14:17 Gadavist 65ml IV 08/29/18 14:16 9 ml ONCE PRN Administration Interaction Checking Piperacillin Sod/Tazobactam 115 mls @ 28.75 mls/hr 08/24/18 22:00 08/27/18 07:35 Sod 3.375 gm/ Dextrose IV 09/03/18 21:59 28.8 mls/hr Q8H MODESTA Administration Lactobacillus Acidophilus 4 tab 08/25/18 08:00 08/27/18 07:52 Floranex PO 09/24/18 07:59 4 tab TIDM MODESTA Administration Pantoprazole Sodium 40 mg 08/25/18 09:00 08/27/18 07:53 Protonix PO 09/24/18 08:59 40 mg QAM MODESTA Administration Potassium Chloride 20 meq 08/25/18 09:00 08/27/18 07:53 Klor-Con M20 PO 09/24/18 08:59 20 meq DAILY MODESTA Administration Tamsulosin HCl 0.4 mg 08/24/18 21:10 08/26/18 21:06 Flomax PO 09/23/18 21:09 0.4 mg QPM MODESTA Administration Past Medical History Medical History Proteus mirabilis infection (Acute) Streptococcal infection (Acute) CAD (coronary artery disease) (Chronic) Wound of right foot (Acute) BPH (benign prostatic hyperplasia) COPD (chronic obstructive pulmonary disease) Chronic diastolic (congestive) heart failure Hyperlipidemia 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 Paroxysmal atrial flutter Hypertension (Chronic) Mitral valve disorder (Chronic) CHF (congestive heart failure) (Resolved) Past Family History Family History Father Asthma Heart disease Mother Leukemia Past Surgical History Surgical History H/O mitral valve repair S/P CABG x 3 [facility] - 1999 Social History Smoking Status: Former smoker tobacco type: cigarettes Smoking cigarettes per day: 1-2 ppd since teenage years Do You Dip or Chew Tobacco: No Smoking End Date: late Hx Alcohol Use: No Hx Substance Use: No substance use type: does not use Exercise / Class Metabolic Activity III < 4 Walking/Shop/Light housework Physical Exam Vital Signs Last Vital Signs Temp 36.6 C 08/27/18 07:35 Pulse 61 08/27/18 07:35 Resp 17 08/27/18 07:35 BP 144/82 H 08/27/18 07:35 Pulse Ox 94 08/27/18 07:35 Testing Electrocardiogram Date: 08/25/18 Atrial flutter with 4:1 A-V conduction, Abnormal ECG, When compared with ECG of 14-DEC-2017 07:37, T wave inversion now evident in Lateral leads Laboratory Results 08/27/18 06:16 08/27/18 06:16 PT 12.6 Seconds (9.0-12.0) H 08/27/18 06:16 INR 1.2 (0.9-1.1) H 08/27/18 06:16 APTT 31.9 Seconds (21.0-31.0) H 08/24/18 17:34 08/24/18 15:40 Gram Stain - Final Foot,Right Deep Wound Culture - Preliminary Proteus mirabilis Enterococcus faecalis Anaerobic gram positive cocci 08/24/18 16:27 Blood Culture - Preliminary Blood No growth to date. 08/24/18 16:17 Blood Culture - Preliminary Blood No growth to date.
[2018-08-27] MEDS ORDERED: BACITRACIN INJ 50,000 UNIT VIAL ONE (15:28)
--- NOTE | 2018-08-27 16:58 | History & Physical Bridge Note ---
Date of Service August 27, 2018 History & Physical Bridge Note I have examined the patient, reviewed the History & Physical and in the interval since the performance of the History & Physical I have noted the following changes of clinical significance: no changes noted
[2018-08-27] MEDS ORDERED: ONDANSETRON INJ 2 MG/ML 2 ML VIAL ONE (17:01)
[2018-08-27] MEDS ORDERED: DEXAMETHASONE SOD INJ 4 MG/ML VIAL ONE (17:01)
[2018-08-27] MEDS ORDERED: fentaNYL citrate 100 MCG/2 ML VIAL ONE (17:01)
[2018-08-27] MEDS ORDERED: LIDOCAINE HCL 2% 2 ML VIAL/AMP(20MG/ML) INFIL ONE (17:01)
[2018-08-27] MEDS ORDERED: PROPOFOL IV EMULSION 10 MG/ML 20 ML VIAL IV ONE (17:01)
--- NOTE | 2018-08-27 17:03 | Orthopedic Progress Note ---
Date of Service August 27, 2018 Assessment & Plan (1) Wound of right foot: 88-year-old male with nonhealing infected right plantar forefoot ulcer. I have indicated the patient for irrigation debridement of the right plantar foot. I explained the risks, benefits and complications of the procedure with the patient and daughter who was present at bedside and their entirety which include however not limited to infection, blood clots, acute blood loss, injury to surrounding nerves, bone, vessels, soft tissue, loss of limb, loss of life, need for additional surgeries. I explained to the patient detail that this wound may require multiple debridements. The patient is to be reevaluated on 08/29/2018 by our foot and ankle specialist Dr. Narvaez. Patient and daughter were in agreement. They wish to proceed with surgical intervention at this time and informed consent was obtained. Subjective The patient was seen in preoperative holding, comfortable at rest no acute issues, patient cleared from medical standpoint to proceed with surgery today. Nonhealing right plantar forefoot ulcer positive for Proteus and Streptococcus. Patient states symptoms worsened since 08/24/2018. Reports he has had a callus on the plantar aspect of his first MTP for a "long time". He has seen podiatry in the past for this. Physical Exam Vital Signs (Past 24 Hours): Last Vital Signs Temp 36.6 C 08/27/18 15:59 Pulse 18 L 08/27/18 15:59 Resp 20 08/27/18 15:59 BP 170/91 H 08/27/18 15:59 Pulse Ox 95 08/27/18 15:59 Physical Exam: RLE NVSI +EHL/FHL/TA/GS SILT grossly, +2 DP pulse, compartments soft NT, 3 x 4 cm necrotic wound plantar aspect of the first MTP, foul-smelling. Constitutional: WD/WN, vitals as above
--- NOTE | 2018-08-27 17:34 | Hospitalist Progress Note ---
Date of Service August 27, 2018 Assessment & Plan (1) Wound of right foot: - Presented with wound on first metatarsal head region, +foul smelling drainage. - CT negative for underlying deep abscess or osteomyelitis. - Venous doppler negative for DVT; arterial duplex was negative for complete occlusion. - MRI was negative for osteomyelitis. - Wound culture +Proteus & Streptococcus; blood cultures negative to date. - Continue Zosyn IV for empiric coverage. - Wound nurse consulted. - Orthopedics consulted, plan for re-evaluation by Dr. Narvaez and possible surgical intervention on Saturday. - Partial weight bearing as tolerated on . - Consulted ID, appreciate input. (2) CAD (coronary artery disease): - Has chronic stable angina at home; h/o 3-vessel CABG in 1999. - Follows with Dr. Hernandez; cleared by cardiology for procedure. - Continue home statin, beta ivy; holding Plavix and Eliquis for procedure. (3) Acute electrocardiogram changes: - Pre-op EKG showed T wave inversion in the lateral leads. - Denies cardiac symptoms, including chest pain and SOB. - Trop levels were negative. - Consult cardiology, approved pre-operatively. (4) Chronic diastolic (congestive) heart failure: - Most recent TTE in August 2017 showed EF 60-65%, mild aortic sclerosis, reduced right ventricular systolic function. - Monitor daily weights. - Continue home Coreg 12.5 mg BID and Bumex 2 mg PO daily. (5) COPD (chronic obstructive pulmonary disease): - No evidence of acute exacerbation. - Continue home Symbicort. (6) Paroxysmal atrial flutter: - EKG showed atrial flutter with 4:1 pattern. - Holding anticoagulation for possible procedure. - Will likely need upgraded to telemetry following procedure for close monitoring. (7) History of mitral valve repair: - Follows with cardiology. (8) BPH (benign prostatic hyperplasia): - Continue Finasteride and Flomax. (9) GERD (gastroesophageal reflux disease): - Hold home Prilosec; Protonix 40 mg qAM. (10) DVT prophylaxis: - Holding Eliquis, Plavix for procedure. Start Heparin 5,000 units for DVT ppx over next 36 hours. Dispo: Med/surg for IV abx and ortho consult. Plan for possible OR intervention on Saturday. Supervising Physician Co-Signing Physician Notes PA Supervision Note: I did not personally see or examine the patient today, but I verified all betancourt points of HUNTER Tuttle's assessment and plan with the following exceptions/additions: It appears pt went to the OR today for debridement. Will restart Eliquis hopefully in the AM after d/w ortho Subjective Pt. is doing well. He denies pain in right foot. Has foul smelling odor. Plan for OR likely on Saturday. Review of Systems All systems reviewed & are unremarkable except as noted in HPI & below Constitutional: no fever, no chills, no fatigue and no weakness Respiratory: no cough and no dyspnea Cardiovascular: no chest pain, no palpitations and no edema Gastrointestinal: no abdominal pain, no nausea, no vomiting, no constipation and no diarrhea/loose stools Genitourinary (Male): no difficulty urinating Musculoskeletal: no joint pain Integumentary: + non-healing lesions Allergy / Immunological: no rash Physical Exam Vital Signs (Past 24 Hours): Last Vital Signs Temp 36.6 C 08/27/18 15:59 Pulse 18 L 08/27/18 15:59 Resp 20 08/27/18 15:59 BP 170/91 H 08/27/18 15:59 Pulse Ox 95 08/27/18 15:59 Physical Exam: General: Resting comfortably in no apparent distress; A&OX3 HEENT: NC/AT; PERRLA with EOMI; Chestnut conjunctiva, MMM. Neck: Supple and nontender Cardiac: Irregular, rate controlled. Lungs: CTA bilaterally Abdomen: Bowel normoactive X 4; Nontender to palpation Extremities: Warm. No edema present. Neuro: No focal weakness Skin: Open wound located on the planter portion of the first metatarsal. Foul smelling drainage. Results & Data Laboratory Results 08/27/18 08/27/18 08/27/18 Range/Units 06:16 06:16 06:16 WBC 6.17 (4.8-10.8) K/uL RBC 4.45 L (4.7-6.1) M/uL Hgb 12.4 L (14.0-18.0) g/dL Hct 38.0 L (42-52) % MCV 85.4 (80-100) fL MCH 27.9 (25-34) pg MCHC 32.6 (32-36) g/dL RDW Std Deviation 45.7 (36.4-46.3) fL RDW Coeff of Michelle 14.7 H (11.5-14.5) % Plt Count 204 (130-400) K/uL MPV 9.2 (7.4-10.4) fL PT 12.6 H (9.0-12.0) Seconds INR 1.2 H (0.9-1.1) Sodium 142 (136-145) mmol/L Potassium 3.8 (3.5-5.1) mmol/L Chloride 109 H (98-107) mmol/L Carbon Dioxide 27 (21-32) mmol/L Anion Gap 6.0 (3-11) BUN 17 (7-18) mg/dl Creatinine 0.96 (0.6-1.4) mg/dl Est Cr Clr Drug Dosing 57.7 ml/min Est GFR ( Amer) 82.0 Est GFR (Non-Af Amer) 70.8 BUN/Creatinine Ratio 17.9 (10-20) Glucose 84 (70-99) mg/dl Calcium 8.3 L (8.5-10.1) mg/dl Magnesium 1.9 (1.8-2.4) mg/dl (1) BPH (benign prostatic hyperplasia) Lower urinary tract symptom presence: symptoms absent Qualified Code(s): N40.0 - Benign prostatic hyperplasia without lower urinary tract symptoms (2) CAD (coronary artery disease) Associated angina: without angina Coronary Disease-Associated Artery/Lesion type: [place] artery [place] vs. transplanted heart: [place] heart Qualified Code(s): I25.10 - Atherosclerotic heart disease of [place] coronary artery without angina pectoris (3) COPD (chronic obstructive pulmonary disease) COPD type: unspecified COPD Qualified Code(s): J44.9 - Chronic obstructive pulmonary disease, unspecified (4) GERD (gastroesophageal reflux disease) Esophagitis presence: without esophagitis Qualified Code(s): K21.9 - Gastro- esophageal reflux disease without esophagitis
[2018-08-27] MEDS ORDERED: ATROPINE SULFATE 0.1 MG/ML 10ML SYR IV PRN (17:35)
[2018-08-27] MEDS ORDERED: LABETALOL HCL IV 5 MG/ML 20ML IV PRN (17:35)
[2018-08-27] MEDS ORDERED: PHENYLEPHRINE 100MCG/ML 5ML SYR IV PRN (17:35)
[2018-08-27] MEDS ORDERED: ePHEDrine sulfate 50 MG/ML AMP IV PRN (17:35)
[2018-08-27] MEDS ORDERED: fentaNYL citrate 100 MCG/2 ML VIAL IV PRN (17:35)
[2018-08-27] MEDS ORDERED: ONDANSETRON INJ 2 MG/ML 2 ML VIAL IV PRN ×2 (17:35→19:04)
[2018-08-27] MEDS ORDERED: HYDROmorphone INJ 1 MG/ML SYRINGE IV PRN (17:35)
[2018-08-27] MEDS ORDERED: ePHEDrine sulfate 50 MG/ML SYR ONE (17:49)
--- NOTE | 2018-08-27 18:18 | Post Operative Brief Note ---
Immediate Post Op Note v1 Date of Surgery August 27, 2018 Pre & Post Diagnosis Operation Date: 08/27/18 07:00 Pre-Op Diagnosis: Right Plantar Foot Callus Post-Op Diagnosis: Right Plantar Foot Callus Procedure Operation Date: 08/27/18 07:00 Actual Procedures p Right Plantar Foot Ulcer Irrigation and Debridement(Right) - Michael Juarez DO Surgeon Michael Juarez DO Clamp Carrier Operator none Estimated Blood Loss 20 Findings Consistent with Post-Op Diagnosis Specimens plantar callus tissue cultures x 2 Anesthesia Type General Complications none Disposition Disposition: Recovery Room Overlapping Procedure I was present for: the critical portions of procedure. I was immediately available: during the entire case. Back up surgeon: was not required during procedure.
--- NOTE | 2018-08-27 18:22 | Anesthesiology Progress Note ---
Date of Service August 27, 2018 Anesthesia Post Procedure Vital Signs Vital Signs: Temp Pulse Pulse Resp BP Pulse Ox 08/27/18 15:59 36.6 C 18 L 72 20 170/91 H 95 08/27/18 15:36 36.6 C 61 18 169/83 H 93 08/27/18 15:14 36.3 C L 66 18 168/85 H 95 08/27/18 07:35 36.6 C 61 17 144/82 H 94 08/26/18 22:46 36.4 C L 61 16 105/60 94 08/26/18 21:03 61 99/56 L Pain Intensity Foot: Pain Intensity: 0 Notes Mental Status: alert / awake / arousable Patient Amnestic to Procedure: Yes Nausea / Vomiting: adequately controlled Pain: adequately controlled Airway Patency, RR, SpO2: stable & adequate BP & HR: stable & adequate Hydration State: stable & adequate Anesthetic Complications: no major complications apparent and Pt Satisfied with anesthetic care
--- NOTE | 2018-08-27 18:40 | Orthopedic Progress Note ---
Date of Service August 27, 2018 Assessment & Plan (1) Wound of right foot: Status post irrigation and debridement right plantar forefoot -Continue IV antibiotics per infectious disease, Elmer standing order -DVT prophylaxis may continue heparin postoperative day #1 -Nonweightbearing right lower extremity -Monitor wound VAC output -Consultation to wound care -Follow-up intraoperative cultures and tissue Subjective Post Operative Progress Note Patient seen sitting up in PACU, comfortable, denies complaints, pain well controlled, no acute issues. Physical Exam Vital Signs (Past 24 Hours): Last Vital Signs Temp 37.3 C 08/27/18 18:08 Pulse 65 08/27/18 18:35 Resp 14 08/27/18 18:35 BP 126/64 08/27/18 18:35 Pulse Ox 95 08/27/18 18:35 Physical Exam: RLE NVSI +EHL/FHL/TA/GS SILT grossly, +2 DP pulse, compartments soft NT, dressing cdi. Wound VAC intact. Constitutional: WD/WN, vitals as above
[2018-08-27] MEDS ORDERED: SODIUM CHLORIDE 0.9% 1000ML 1,000 ML IV SCH (19:04)
[2018-08-27] MEDS ORDERED: MAGNESIUM HYDROXIDE SUSP 30 ML UDC PO PRN (19:04)
[2018-08-27] MEDS ORDERED: NALOXONE HCL 0.4 MG/1 ML VIAL/CARP IV PRN (19:04)
[2018-08-27] MEDS ORDERED: TRAMADOL HCL 50 MG TABLET PO PRN (19:04)
[2018-08-27] MEDS ORDERED: METOCLOPRAMIDE HCL INJ 5 MG/ML 2 ML VIAL IV PRN (19:04)
[2018-08-27] MEDS ORDERED: BISACODYL 10 MG SUPP PR PRN (19:04)
[2018-08-27] MEDS: FINASTERIDE 5 MG TAB PO SCH (21:05)
[2018-08-27] MEDS: TAMSULOSIN HCL 0.4 MG CAP PO SCH (21:05)
[2018-08-27] MEDS: ATORVASTATIN 40 MG TAB PO SCH (21:06)
[2018-08-27] MEDS: SENNA 8.6 MG TAB PO SCH (21:09)
[2018-08-27] MEDS: DOCUSATE SODIUM 100 MG CAP PO SCH (21:10)
[2018-08-27] MEDS: HEPARIN SOD 5,000 UNIT/0.5 ML VIAL SQ SCH (21:16)
[2018-08-28] MEDS ORDERED: VANCOMYCIN TROUGH ONE (05:30)
[2018-08-28 07:34] LABS: Hematocrit (blood only) 36.7 % (42-52); Hemoglobin 11.6 g/dL (14.0-18.0); Mean Corpuscular Hgb Conc 31.6 g/dL (32-36); Mean Platelet Volume 9.4 fL (7.4-10.4); Platelet Count 206 K/uL (130-400); RDW Coefficient of Variation 14.9 % (11.5-14.5); RDW Standard Deviation 46.5 fL (36.4-46.3); Red Blood Count 4.22 M/uL (4.7-6.1); White Blood Count 5.75 K/uL (4.8-10.8)
[2018-08-28] MEDS: PIPERACILLIN/TAZOBACTAM 3.375 GM in DEXTROSE 5% 100 ML IV SCH ×3 (07:37→22:51)
[2018-08-28] MEDS: LACTOBACILLUS ACIDOPHILUS (FLORANEX) TAB PO SCH ×3 (07:38→19:27)
[2018-08-28 08:08] LABS: BUN Creatinine Ratio 17.4 (10-20); Calcium 8.6 mg/dl (8.5-10.1); Creatinine Clr Calc Pharmacy 49.9 ml/min; Est GFR (African American) 68.8; Est GFR (Non-African American) 59.4; Potassium 4.2 mmol/L (3.5-5.1)
[2018-08-28] MEDS: BUDESONIDE/FORMOTEROL FUMARATE 160/4.5 60 PUFFS/INHALER INH SCH ×2 (09:01→21:18)
--- NOTE | 2018-08-28 09:01 | Orthopedic Progress Note ---
Date of Service August 28, 2018 Assessment & Plan (1) Wound of right foot: Status post irrigation and debridement right plantar forefoot infected callus -Continue IV antibiotics per infectious disease, Kristisyn standing order -DVT prophylaxis may continue heparin postoperative day #1 -Nonweightbearing right lower extremity -Monitor wound VAC output -Consultation to wound care -Follow-up intraoperative cultures and tissue -Dr Narvaez to re-evaluate for further treatment and recommendations post operatively Subjective Post Operative Progress Note Patient seen sitting up in PACU, comfortable, denies complaints, pain well controlled, no acute issues. Physical Exam Vital Signs (Past 24 Hours): Last Vital Signs Temp 36.6 C 08/28/18 07:20 Pulse 58 L 08/28/18 07:20 Resp 16 08/28/18 07:20 BP 116/65 08/28/18 07:20 Pulse Ox 92 08/28/18 07:20 Physical Exam: RLE NVSI +EHL/FHL/TA/GS SILT grossly, +2 DP pulse, compartments soft NT, dressing cdi. Constitutional: WD/WN, vitals as above
[2018-08-28] MEDS: MULTIVITAMIN TAB PO SCH (09:02)
[2018-08-28] MEDS: PANTOprazole 40 MG TAB PO SCH (09:02)
[2018-08-28] MEDS: DOCUSATE SODIUM 100 MG CAP PO SCH ×2 (09:02→21:16)
[2018-08-28] MEDS: CARVEDILOL 12.5 MG TAB PO SCH ×2 (09:02→21:14)
[2018-08-28] MEDS: POTASSIUM CHLORIDE 20 MEQ TABCR PO SCH (09:02)
[2018-08-28] MEDS: HEPARIN SOD 5,000 UNIT/0.5 ML VIAL SQ SCH (09:04)
[2018-08-28] MEDS ORDERED: CLOPIDOGREL BISULFATE 75 MG TAB PO SCH (17:00)
--- NOTE | 2018-08-28 17:29 | Hospitalist Progress Note ---
Date of Service August 28, 2018 Assessment & Plan (1) Wound of right foot: - Presented with wound on first metatarsal head region with +foul smelling drainage. - CT negative for underlying deep abscess or osteomyelitis. - Venous doppler negative for DVT; arterial duplex was negative for complete occlusion. - MRI was negative for osteomyelitis. - Wound culture +Proteus, Enterococcus and Finegoldia; blood cultures negative to date. - Continue Zosyn IV per sensitivities (end date: 08/31/18) - Wound care consulted, has wound vac. - Orthopedics consulted, plan for re-evaluation by Dr. Narvaez on Saturday. - Partial weight bearing as tolerated on RL. - Consulted ID, appreciate input. (2) CAD (coronary artery disease): - Has chronic stable angina at home; h/o 3-vessel CABG in 1999. - Follows with Dr. Hernandez; was cleared by cardiology for procedure. - Continue home statin, beta ivy. - Holding Plavix and Eliquis -- will restart on 08/29/18 if no intervention planned following re-evaluation by Dr. Narvaez. (3) Acute electrocardiogram changes: - Pre-op EKG showed T wave inversion in the lateral leads. - Denies cardiac symptoms, including chest pain and SOB. - Trop levels were negative. - Consult cardiology, approved pre-operatively. (4) Chronic diastolic (congestive) heart failure: - Most recent TTE in August 2017 showed EF 60-65%, mild aortic sclerosis, reduced right ventricular systolic function. - Monitor daily weights - weight decreased ~7 lbs since admission. - Continue home Coreg 12.5 mg BID. - Holding home Bumex 2 mg PO daily due to hypotension and weight loss. (5) COPD (chronic obstructive pulmonary disease): - No evidence of acute exacerbation. - Continue home Symbicort. (6) Paroxysmal atrial flutter: - EKG showed atrial flutter with 4:1 pattern. - Holding anticoagulation for possible procedure - will restart on 08/[address] Narvaez. (7) History of mitral valve repair: - Follows with cardiology. (8) BPH (benign prostatic hyperplasia): - Continue Finasteride and Flomax. (9) GERD (gastroesophageal reflux disease): - Hold home Prilosec; Protonix 40 mg qAM. (10) DVT prophylaxis: - Holding Eliquis, Plavix for procedure. Continue Heparin 5,000 units BID for DVT ppx. Dispo: Med/surg for IV abx, ortho following. Discharge to SNF vs. acute rehab pending ortho re-eval tomorrow and bed availability. Supervising Physician Co-Signing Physician Notes PA Supervision Note: I did not personally see or examine the patient today, but I verified all betanc[place] points of HUNTER Tuttle's assessment and plan with the following exceptions/additions: None Subjective Pt. is doing well overall. Denies foot pain; has neuropathy. Denies chest pain, SOB, constipation, N/V. Is POD#1 from I&D right foot, wound vac in place. Plan for rehab placement -- SNF vs. acute rehab. Review of Systems All systems reviewed & are unremarkable except as noted in HPI & below Constitutional: no fever, no chills, no fatigue and no weakness Respiratory: no cough and no dyspnea Cardiovascular: no chest pain, no palpitations, no syncope and no edema Gastrointestinal: no abdominal pain, no nausea, no vomiting, no constipation and no diarrhea/loose stools Genitourinary (Male): no difficulty urinating Musculoskeletal: no joint pain Integumentary: + non-healing lesions Allergy / Immunological: no rash Physical Exam Vital Signs (Past 24 Hours): Last Vital Signs Temp 36.5 C 08/28/18 15:20 Pulse 52 L 08/28/18 15:20 Resp 18 08/28/18 15:20 BP 127/60 08/28/18 15:45 Pulse Ox 91 08/28/18 15:45 Physical Exam: General: Resting comfortably in no apparent distress; A&OX3 HEENT: NC/AT; PERRLA with EOMI; [place] conjunctiva, MMM. Neck: Supple and nontender Cardiac: Irregular, rate controlled. Lungs: CTA bilaterally Abdomen: Bowel normoactive X 4; Nontender to palpation Extremities: Warm. No edema present. Neuro: No focal weakness Skin: Wound on right plantar foot at site of first metatarasal, wound vac with dressing in place. Results & Data Laboratory Results 08/28/18 08/28/18 Range/Units 06:49 06:49 WBC 5.75 (4.8-10.8) K/uL RBC 4.22 L (4.7-6.1) M/uL Hgb 11.6 L (14.0-18.0) g/dL Hct 36.7 L (42-52) % MCV 87.0 (80-100) fL MCH 27.5 (25-34) pg MCHC 31.6 L (32-36) g/dL RDW Std Deviation 46.5 H (36.4-46.3) fL RDW Coeff of Michelle 14.9 H (11.5-14.5) % Plt Count 206 (130-400) K/uL MPV 9.4 (7.4-10.4) fL Sodium 140 (136-145) mmol/L Potassium 4.2 (3.5-5.1) mmol/L Chloride 107 (98-107) mmol/L Carbon Dioxide 29 (21-32) mmol/L Anion Gap 4.0 (3-11) BUN 19 H (7-18) mg/dl Creatinine 1.11 (0.6-1.4) mg/dl Est Cr Clr Drug Dosing 49.9 ml/min Est GFR ( Amer) 68.8 Est GFR (Non-Af Amer) 59.4 BUN/Creatinine Ratio 17.4 (10-20) Glucose 85 (70-99) mg/dl Calcium 8.6 (8.5-10.1) mg/dl (1) BPH (benign prostatic hyperplasia) Lower urinary tract symptom presence: symptoms absent Qualified Code(s): N40.0 - Benign prostatic hyperplasia without lower urinary tract symptoms (2) CAD (coronary artery disease) Associated angina: without angina Coronary Disease-Associated Artery/Lesion type: [place] artery [place] vs. transplanted heart: [place] heart Qualified Code(s): I25.10 - Atherosclerotic heart disease of [place] coronary artery without angina pectoris (3) COPD (chronic obstructive pulmonary disease) COPD type: unspecified COPD Qualified Code(s): J44.9 - Chronic obstructive pulmonary disease, unspecified (4) GERD (gastroesophageal reflux disease) Esophagitis presence: without esophagitis Qualified Code(s): K21.9 - Gastro- esophageal reflux disease without esophagitis
[2018-08-28] MEDS ORDERED: APIXABAN 2.5 MG TAB PO SCH (21:00)
--- NOTE | 2018-08-28 21:14 | Operative Report ---
Post Operative Report Pre & Post Diagnosis Operation Date: 08/27/18 07:00 Pre-Op Diagnosis: Right Plantar Foot Callus Post-Op Diagnosis: Right Plantar Foot Callus Procedure Operation Date: 08/27/18 07:00 Actual Procedures p Right Plantar Foot Ulcer Irrigation and Debridement(Right) - Michael Juarez DO Surgeon Michael Juarez DO [employer] none Estimated Blood Loss 20 Findings Consistent with Post-Op Diagnosis Fluids 1000 cc LR Specimens right plantar foot callus Superficial cultures x 2 Anesthesia Type General Complications none Disposition Disposition: Recovery Room Indications The patient is a 88 year old male who was admitted to [facility] secondary to infected right plantar foot callus. The patients anticoagulation was held and they were cleared from medical standpoint to proceed with surgery on 08/27/18. Nonhealing right plantar forefoot ulcer, wound cultures + for Proteus mirabilis, Enterococcus faecalis, Finegoldia magna. Patient states symptoms worsened since 08/24/2018. Reports he has had a callus on the plantar aspect of his first MTP for a "long time", unsure of exact timeframe. Denies previous surgery. He has seen podiatry in the past for this problem. 88-year-old male with nonhealing infected right plantar forefoot callus. I have indicated the patient for irrigation debridement of the right plantar forefoot. I explained the risks, benefits and complications of the procedure with the patient and daughter who was present at bedside in their entirety which include however not limited to infections, blood clots, acute blood loss, injury to surrounding nerves, bone, vessels, soft tissue, loss of limb, loss of life, need for additional surgeries, repeat I+D. I explained to the patient detail that this wound may require multiple debridements. The patient is to be reevaluated on 08/29/2018 by our foot and ankle specialist Dr. Narvaez. Patient and daughter were in agreement. They wish to proceed with surgical intervention at this time and informed consent was obtained. Description of Procedure The tourniquet was deflated at 28 minutes. I attest to the content of the Intraoperative Record and any orders documented therein. Any exceptions are noted below.
[2018-08-28] MEDS: SENNA 8.6 MG TAB PO SCH (21:15)
[2018-08-28] MEDS: ATORVASTATIN 40 MG TAB PO SCH (21:16)
[2018-08-28] MEDS: FINASTERIDE 5 MG TAB PO SCH (21:17)
[2018-08-28] MEDS: TAMSULOSIN HCL 0.4 MG CAP PO SCH (21:17)
[2018-08-29 06:22] LABS: Hematocrit (blood only) 37.3 % (42-52); Hemoglobin 11.9 g/dL (14.0-18.0); Mean Corpuscular Hgb Conc 31.9 g/dL (32-36); Mean Corpuscular Volume 87.1 fL (80-100); Mean Platelet Volume 9.1 fL (7.4-10.4); Platelet Count 198 K/uL (130-400); RDW Coefficient of Variation 14.8 % (11.5-14.5); RDW Standard Deviation 46.2 fL (36.4-46.3); Red Blood Count 4.28 M/uL (4.7-6.1); White Blood Count 5.25 K/uL (4.8-10.8)
[2018-08-29 06:53] LABS: BUN Creatinine Ratio 17.1 (10-20); Creatinine Clr Calc Pharmacy 51.3 ml/min; Est GFR (African American) 71.1; Est GFR (Non-African American) 61.4; Potassium 4.4 mmol/L (3.5-5.1)
[2018-08-29] MEDS: PIPERACILLIN/TAZOBACTAM 3.375 GM in DEXTROSE 5% 100 ML IV SCH ×2 (09:31→16:05)
[2018-08-29] MEDS: LACTOBACILLUS ACIDOPHILUS (FLORANEX) TAB PO SCH ×3 (09:31→16:58)
[2018-08-29] MEDS: MULTIVITAMIN TAB PO SCH (09:31)
[2018-08-29] MEDS: PANTOprazole 40 MG TAB PO SCH (09:32)
[2018-08-29] MEDS: DOCUSATE SODIUM 100 MG CAP PO SCH (09:32)
[2018-08-29] MEDS: BUDESONIDE/FORMOTEROL FUMARATE 160/4.5 60 PUFFS/INHALER INH SCH ×2 (09:32→20:18)
[2018-08-29] MEDS: POTASSIUM CHLORIDE 20 MEQ TABCR PO SCH (09:32)
[2018-08-29] MEDS: CARVEDILOL 12.5 MG TAB PO SCH ×2 (09:33→20:23)
--- NOTE | 2018-08-29 11:15 | Orthopedic Progress Note ---
Date of Service August 29, 2018 Assessment & Plan (1) Wound of right foot: POD 2 Status post irrigation and debridement right plantar forefoot infected callus -Continue IV antibiotics per infectious disease, Bryann standing order -DVT prophylaxis may continue heparin postoperative day #1 -Nonweightbearing right lower extremity -Monitor wound VAC output -Wound Care Nursing on board and monitoring Vac -Follow-up intraoperative cultures and tissue (currently Proteus/Strep species) -Pictures reviewed with Yari Clinton from wound care. The wound looks very good. [place] base with viable edges. No purulence or necrosis noted. No further surgery at this time. Continue wound VAC at this time. If patient is here till Saturday, plan for wound VAC change at that time. Patient will need to follow-up with wound care center after discharge. Follow-up with Dr. Narvaez in 10-14 days. Subjective Postop day 2 status post I&D right foot. Patient is lying in bed. He is awake and alert. He denies any discomfort in the right foot at this time. He states that wound care nurses were in this morning to change his wound VAC. No new complaints. He states that he is going to be going to [facility] at the beginning of the week. Physical Exam Vital Signs (Past 24 Hours): Last Vital Signs Temp 36.6 C 08/29/18 08:01 Pulse 59 L 08/29/18 08:01 Resp 18 08/29/18 08:01 BP 154/84 H 08/29/18 08:01 Pulse Ox 95 08/29/18 08:01 Physical Exam: New wound VAC placed by wound care. Intact and functioning well. Moving toes well. Capillary refill less than 2 seconds.
[2018-08-29] MEDS: APIXABAN 5 MG TABLET PO SCH ×2 (13:08→20:23)
[2018-08-29] MEDS: CLOPIDOGREL BISULFATE 75 MG TAB PO SCH (13:08)
--- NOTE | 2018-08-29 17:28 | Hospitalist Progress Note ---
Date of Service August 29, 2018 Assessment & Plan (1) Wound of right foot: - Presented with wound on first metatarsal head region with +foul smelling drainage. - CT negative for underlying deep abscess or osteomyelitis. - Venous doppler negative for DVT; arterial duplex was negative for complete occlusion. - MRI was negative for osteomyelitis. - Wound culture +Proteus, Enterococcus and Finegoldia; blood cultures negative. - Continue Zosyn IV per sensitivities (end date: 08/31/18); will convert to Augmentin BID x 2 weeks following completion of IV abx. - Orthopedics consulted, s/p I&D with wound vac placement on 08/27/18, POD#2. - Partial weight bearing as tolerated on RLE. - Consulted ID, appreciate input. (2) CAD (coronary artery disease): - Has chronic stable angina at home; h/o 3-vessel CABG in 1999. - Follows with Dr. Hernandez; was cleared by cardiology for procedure. - Continue home statin, beta ivy. - Will resume home Eliquis and Plavix. (3) Acute electrocardiogram changes: - Pre-op EKG showed T wave inversion in the lateral leads. - Denies cardiac symptoms, including chest pain and SOB. - Trop levels were negative. - Consult cardiology, approved pre-operatively. (4) Chronic diastolic (congestive) heart failure: - Most recent TTE in August 2017 showed EF 60-65%, mild aortic sclerosis, reduced right ventricular systolic function. - Monitor daily weights. - Continue home Coreg 12.5 mg BID. - Resume home Bumex 2 mg PO daily. (5) COPD (chronic obstructive pulmonary disease): - No evidence of acute exacerbation. - Continue home Symbicort. (6) Paroxysmal atrial flutter: - EKG showed atrial flutter with 4:1 pattern. - Restart home Eliquis. (7) History of mitral valve repair: - Follows with cardiology. (8) BPH (benign prostatic hyperplasia): - Continue Finasteride and Flomax. (9) GERD (gastroesophageal reflux disease): - Hold home Prilosec; Protonix 40 mg qAM. (10) DVT prophylaxis: - Restart home Eliquis. Dispo: Med/surg for IV abx, ortho following. Discharge to [facility] on Saturday. Supervising Physician Co-Signing Physician Notes PA Supervision Note: I did not personally see or examine the patient today, but I verified all bet[place] points of HUNTER Tuttle's assessment and plan with the following exceptions/additions: None Subjective Pt. doing well today. Denies right foot pain. Was re-evaluated by ortho, no further surgical intervention required. Plan for placement at [facility] on Saturday. Review of Systems All systems reviewed & are unremarkable except as noted in HPI & below Constitutional: no fever, no chills, no fatigue and no weakness Respiratory: no cough, no dyspnea and no wheezing Cardiovascular: no chest pain, no palpitations, no syncope and no edema Gastrointestinal: no abdominal pain, no nausea and no constipation Genitourinary (Male): no difficulty urinating Musculoskeletal: no joint pain Integumentary: + non-healing lesions Allergy / Immunological: no rash Physical Exam Vital Signs (Past 24 Hours): Last Vital Signs Temp 36.5 C 08/29/18 15:38 Pulse 58 L 08/29/18 15:38 Resp 18 08/29/18 15:38 BP 137/72 08/29/18 15:38 Pulse Ox 92 08/29/18 15:38 Results & Data Laboratory Results 08/29/18 08/29/18 Range/Units 06:02 06:02 WBC 5.25 (4.8-10.8) K/uL RBC 4.28 L (4.7-6.1) M/uL Hgb 11.9 L (14.0-18.0) g/dL Hct 37.3 L (42-52) % MCV 87.1 (80-100) fL MCH 27.8 (25-34) pg MCHC 31.9 L (32-36) g/dL RDW Std Deviation 46.2 (36.4-46.3) fL RDW Coeff of Michelle 14.8 H (11.5-14.5) % Plt Count 198 (130-400) K/uL MPV 9.1 (7.4-10.4) fL Sodium 140 (136-145) mmol/L Potassium 4.4 (3.5-5.1) mmol/L Chloride 106 (98-107) mmol/L Carbon Dioxide 31 (21-32) mmol/L Anion Gap 3.0 (3-11) BUN 19 H (7-18) mg/dl Creatinine 1.08 (0.6-1.4) mg/dl Est Cr Clr Drug Dosing 51.3 ml/min Est GFR ( Amer) 71.1 Est GFR (Non-Af Amer) 61.4 BUN/Creatinine Ratio 17.1 (10-20) Glucose 91 (70-99) mg/dl Calcium 8.0 L (8.5-10.1) mg/dl (1) BPH (benign prostatic hyperplasia) Lower urinary tract symptom presence: symptoms absent Qualified Code(s): N40.0 - Benign prostatic hyperplasia without lower urinary tract symptoms (2) CAD (coronary artery disease) Associated angina: without angina Coronary Disease-Associated Artery/Lesion type: [place] artery [place] vs. transplanted heart: [place] heart Qualified Code(s): I25.10 - Atherosclerotic heart disease of [place] coronary artery without angina pectoris (3) COPD (chronic obstructive pulmonary disease) COPD type: unspecified COPD Qualified Code(s): J44.9 - Chronic obstructive pulmonary disease, unspecified (4) GERD (gastroesophageal reflux disease) Esophagitis presence: without esophagitis Qualified Code(s): K21.9 - Gastro- esophageal reflux disease without esophagitis
[2018-08-29] MEDS: FINASTERIDE 5 MG TAB PO SCH (20:23)
[2018-08-29] MEDS: ATORVASTATIN 40 MG TAB PO SCH (20:23)
[2018-08-29] MEDS: TAMSULOSIN HCL 0.4 MG CAP PO SCH (20:23)
[2018-08-29] MEDS: SENNA 8.6 MG TAB PO SCH (20:23)
[2018-08-30] MEDS: PIPERACILLIN/TAZOBACTAM 3.375 GM in DEXTROSE 5% 100 ML IV SCH ×4 (00:43→21:54)
[2018-08-30 06:38] LABS: Hematocrit (blood only) 36.9 % (42-52); Hemoglobin 11.8 g/dL (14.0-18.0); Mean Platelet Volume 8.8 fL (7.4-10.4); Platelet Count 200 K/uL (130-400); RDW Coefficient of Variation 14.7 % (11.5-14.5); RDW Standard Deviation 45.9 fL (36.4-46.3); Red Blood Count 4.29 M/uL (4.7-6.1); White Blood Count 5.55 K/uL (4.8-10.8)
[2018-08-30 07:07] LABS: BUN Creatinine Ratio 16.1 (10-20); Calcium 8.4 mg/dl (8.5-10.1); Creatinine Clr Calc Pharmacy 60.2 ml/min; Est GFR (African American) 86.4; Est GFR (Non-African American) 74.5; Potassium 4.4 mmol/L (3.5-5.1)
--- NOTE | 2018-08-30 08:10 | Orthopedic Progress Note ---
Date of Service August 30, 2018 Assessment & Plan (1) Wound of right foot: POD 3 Status post irrigation and debridement right plantar forefoot infected callus -Continue IV antibiotics per infectious disease, Zosyn standing order -DVT prophylaxis may continue heparin postoperative day #1 -Nonweightbearing right lower extremity -Monitor wound VAC output -Wound Care Nursing on board and monitoring Vac -Follow-up intraoperative cultures and tissue (currently Proteus/Strep species) -Pictures reviewed with Yari Clinton from wound care. The wound looks very good. [place] base with viable edges. No purulence or necrosis noted. No further surgery at this time. Continue wound VAC at this time. If patient is here till Saturday, plan for wound VAC change at that time. Patient will need to follow-up with wound care center after discharge. Follow-up with Dr. Narvaez in 10-14 days. Patient seen and examined, agree with above assessment and plan. Subjective Postop day 3 status post I&D right foot. Patient is sitting at the bedside. He is awake and alert. He denies any discomfort in the right foot at this time. Yesterday, he had some increase in pain in the foot after doing exercises with PT. No other complaints. He states that he is going to be going to [place] [facility] at the beginning of the week. Physical Exam Vital Signs (Past 24 Hours): Last Vital Signs Temp 36.8 C 08/30/18 08:03 Pulse 60 08/30/18 08:03 Resp 18 08/30/18 08:03 BP 138/73 08/30/18 08:03 Pulse Ox 95 08/30/18 08:03 Constitutional: WD/WN, vitals as above Musculoskeletal: Right foot: wound vac in place and functioning. No erythema surrounding the plantar 1st metatarsal head ulceration.
[2018-08-30] MEDS: BUDESONIDE/FORMOTEROL FUMARATE 160/4.5 60 PUFFS/INHALER INH SCH ×2 (08:24→20:46)
[2018-08-30] MEDS: CARVEDILOL 12.5 MG TAB PO SCH ×2 (08:24→20:50)
[2018-08-30] MEDS: POTASSIUM CHLORIDE 20 MEQ TABCR PO SCH (08:24)
[2018-08-30] MEDS: BUMETANIDE 1 MG TAB PO SCH (08:26)
[2018-08-30] MEDS: LACTOBACILLUS ACIDOPHILUS (FLORANEX) TAB PO SCH ×3 (08:26→17:42)
[2018-08-30] MEDS: APIXABAN 5 MG TABLET PO SCH ×2 (08:26→20:43)
[2018-08-30] MEDS: CLOPIDOGREL BISULFATE 75 MG TAB PO SCH (08:26)
[2018-08-30] MEDS: PANTOprazole 40 MG TAB PO SCH (08:27)
[2018-08-30] MEDS: DOCUSATE SODIUM 100 MG CAP PO SCH ×2 (08:27→20:43)
[2018-08-30] MEDS: MULTIVITAMIN TAB PO SCH (08:27)
--- NOTE | 2018-08-30 10:25 | XRay Report ---
XR chest 2V routine CLINICAL HISTORY: Evaluate for pulmonary edema. COMPARISON STUDY: Chest radiograph and chest CT December 12, 2017. FINDINGS: Cardiomegaly and a prosthetic mitral valve is again noted. Note is made of moderate right a nd small left pleural effusions. Bibasilar opacities are present. Interstitial thickening reflect pul monary edema. IMPRESSION: 1. Moderate right and small left pleural effusions with bibasilar opacities that favor atelectasis. 2. Moderate pulmonary edema. Electronically signed by: Brando Gregg M.D. 08/30/2018 10:23 AM
[2018-08-30 10:39] LABS: D Dimer 2350 ug/L FEU (0-500)
--- NOTE | 2018-08-30 12:12 | Hospitalist Progress Note ---
Date of Service August 30, 2018 Assessment & Plan (1) Wound of right foot: - Wound on first metatarsal head region with foul smelling drainage. - CT negative for underlying deep abscess or osteomyelitis; MRI negative for osteomyelitis. - Venous doppler negative for DVT; arterial duplex was negative for complete occlusion. - Wound culture +Proteus, Enterococcus and Finegoldia; blood cultures negative. - Continue Zosyn IV per sensitivities (end date: 08/31/18); convert to Augmentin BID x 2 weeks following completion of IV abx. - Orthopedics consulted, s/p I&D with wound vac placement on 08/27/18, POD#3. F/u ortho in 10-14 days. - Will need wound vac change on Saturday and f/u with wound care center after discharge. - Strict non-weight bearing on RLE; PT/OT following. - Consulted ID, appreciate input. (2) SOB (shortness of breath): - Developed SOB overnight, temporarily required 2L via NC. - Likely related to pulmonary edema. - CXR this morning showed atelectasis and moderate pulm edema. - D-dimer was elevated; CT was negative for PE but showed large right pleural effusion with compressive atelectasis. - Held home Bumex on 08/28 and 08/29; resumed 2 mg PO daily this morning - diuresed 2L since dose this morning, no indication for IV Bumex. (3) CAD (coronary artery disease): - Has chronic stable angina at home; h/o 3-vessel CABG in 1999. - Follows with Dr. Hernandez; cleared by cardiology for procedure. - Continue home statin, beta ivy; resumed Eliquis and Plavix on 08/29. (4) Acute electrocardiogram changes: - Pre-op EKG showed T wave inversion in the lateral leads. - Denies cardiac symptoms, including chest pain and SOB. - Trop levels were negative. - Consult cardiology, approved pre-operatively. (5) Chronic diastolic (congestive) heart failure: With acute on chronic diastolic CHF today with orthopnea and pleural effusion as above - Most recent TTE in August 2017 showed EF 60-65%, mild aortic sclerosis, reduced right ventricular systolic function. - Monitor daily weights -- wght is below baseline. - Continue home Coreg 12.5 mg BID. - Resumed home Bumex 2 mg PO this morning -- has pulm edema on CXR, may require IV diuresis this afternoon. (6) COPD (chronic obstructive pulmonary disease): - No evidence of acute exacerbation. - Continue home Symbicort. (7) Paroxysmal atrial flutter: - EKG showed atrial flutter with 4:1 pattern. - Restarted home Eliquis. (8) History of mitral valve repair: - Follows with cardiology. (9) BPH (benign prostatic hyperplasia): - Continue Finasteride and Flomax. (10) GERD (gastroesophageal reflux disease): - Hold home Prilosec; Protonix 40 mg qAM. (11) DVT prophylaxis: - Restarted home Eliquis. Dispo: Med/surg for IV abx, ortho following. Discharge to [facility] on Saturday following wound vac change. Will need f/u with ortho in 10-14 days and f/u with wound care center arranged. Supervising Physician Co-Signing Physician Notes PA Supervision Note: I did not personally see or examine the patient today, but I verified all [place] points of HUNTER Tuttle's assessment and plan with the following exceptions/additions: None Subjective Pt. had shortness of breath throughout the night. He did not sleep well due to symptoms. Required 2L via NC, now stable on room air. Pt. denies laying flat in bed leading to orthopnea. Denies SOB, chest pain, pleuritic pain, LE edema or pain this morning. Home Bumex was held on 08/28 and 08/29 due to weight loss, hypovolemia. Medication was resumed this morning. CXR showed pulm edema; he did receive Bumex 2 mg PO this morning. D-dimer was elevated; home Eliquis has been held since the beginning of the week for planned proceudre, was just resumed yesterday. Will obtain CT PE due to risk of PE post operatively. May require further diuresis this afternoon if renal function allows repeat dosing. He worked with physical therapy last evening and complains of increased pain in right foot. States PT was stretching foot and moving extremity leading to pain. Pain now improved at rest but he is concerned repeat PT sessions in the future will lead to pain. Review of Systems All systems reviewed & are unremarkable except as noted in HPI & below Constitutional: + fatigue and + weakness; no fever, no chills and no anorexia Respiratory: + dyspnea and + dyspnea on exertion; no cough, no chest congestion and no wheezing Cardiovascular: + orthopnea; no chest pain, no palpitations and no edema Gastrointestinal: no abdominal pain, no nausea and no constipation Genitourinary (Male): no difficulty urinating Musculoskeletal: + joint pain (Right foot ) Integumentary: + non-healing lesions (Right foot ) Allergy / Immunological: no rash Physical Exam Vital Signs (Past 24 Hours): Last Vital Signs Temp 36.8 C 08/30/18 08:03 Pulse 60 08/30/18 08:03 Resp 18 08/30/18 08:03 BP 138/73 08/30/18 08:03 Pulse Ox 95 08/30/18 08:03 Physical Exam: General: Resting comfortably in no apparent distress; A&OX3 HEENT: NC/AT; PERRLA with EOMI; [place] conjunctiva, MMM. Neck: Supple and nontender Cardiac: Irregular. Lungs: on room air; crackles in bilat lower lung bases, otherwise clear throughout Abdomen: Bowel normoactive X 4; Nontender to palpation Extremities: Warm. No edema present. Wound vac in place at site of right foot wound, plantar surface first metatarsal. Neuro: No focal weakness Skin: No rash Results & Data Laboratory Results 08/30/18 08/30/18 08/30/18 Range/Units 09:37 06:15 06:15 WBC 5.55 (4.8-10.8) K/uL RBC 4.29 L (4.7-6.1) M/uL Hgb 11.8 L (14.0-18.0) g/dL Hct 36.9 L (42-52) % MCV 86.0 (80-100) fL MCH 27.5 (25-34) pg MCHC 32.0 (32-36) g/dL RDW Std Deviation 45.9 (36.4-46.3) fL RDW Coeff of Michelle 14.7 H (11.5-14.5) % Plt Count 200 (130-400) K/uL MPV 8.8 (7.4-10.4) fL D-Dimer 2350 H* (0-500) ug/L FEU Sodium 140 (136-145) mmol/L Potassium 4.4 (3.5-5.1) mmol/L Chloride 109 H (98-107) mmol/L Carbon Dioxide 30 (21-32) mmol/L Anion Gap 1.0 L (3-11) BUN 15 (7-18) mg/dl Creatinine 0.92 (0.6-1.4) mg/dl Est Cr Clr Drug Dosing 60.2 ml/min Est GFR ( Amer) 86.4 Est GFR (Non-Af Amer) 74.5 BUN/Creatinine Ratio 16.1 (10-20) Glucose 89 (70-99) mg/dl Calcium 8.4 L (8.5-10.1) mg/dl Specimen Hemolysis (1) BPH (benign prostatic hyperplasia) Lower urinary tract symptom presence: symptoms absent Qualified Code(s): N40.0 - Benign prostatic hyperplasia without lower urinary tract symptoms (2) CAD (coronary artery disease) Associated angina: without angina Coronary Disease-Associated Artery/Lesion type: [place] artery [place] vs. transplanted heart: [place] heart Qualified Code(s): I25.10 - Atherosclerotic heart disease of [place] coronary artery without angina pectoris (3) COPD (chronic obstructive pulmonary disease) COPD type: unspecified COPD Qualified Code(s): J44.9 - Chronic obstructive pulmonary disease, unspecified (4) GERD (gastroesophageal reflux disease) Esophagitis presence: without esophagitis Qualified Code(s): K21.9 - Gastro-esophageal reflux disease without esophagitis
[2018-08-30] MEDS ORDERED: OPTIRAY 320 125ml IV PRN (12:14)
--- NOTE | 2018-08-30 12:25 | CT Scan Report ---
CT ANGIOGRAPHY OF THE CHEST, PULMONARY EMBOLUS PROTOCOL CLINICAL HISTORY: Shortness of breath. COMPARISON STUDY: Chest CT December 12, 2017. Chest radiograph performed earlier today. TECHNIQUE: Following IV administration of 97 mL of Optiray-320, helical axial images of the chest wer e obtained utilizing the pulmonary embolus protocol. Maximal intensity projections and sagittal and coronal reformats were viewed on an independent 3D workstation. IV contrast was administered without complication. Automated exposure control was utilized for the study. A dose lowering technique was utilized adhering to the principles of ALARA. CT DOSE: 321.09 mGy.cm FINDINGS: No central pulmonary emboli are identified. The remainder of the pulmonary arteries are frank boptimally assessed due to significant respiratory motion artifact. Prosthetic mitral valve is noted. Post surgical findings within the sternum are noted. The postoperative appearance is unchanged. Ther e is moderate cardiomegaly. There is no pericardial effusion. Moderate to large right pleural effusio n is partially imaged on this exam. There is a trace left pleural effusion. Left basilar opacity favo rs atelectasis or scarring. There is probable mild pulmonary edema. No pneumothorax. A mildly enlarge d precarinal lymph node is unchanged since prior CT. Bony thorax is unremarkable. Calcified right hil ar lymph nodes are present. IMPRESSION: 1. Exam significantly compromised by respiratory motion. No central pulmonary emboli. Remainder of pu lmonary arteries suboptimally assessed due to respiratory motion. 2. Moderate to large right pleural effusion with associated right lower lobe volume loss which favors compressive atelectasis. Trace left pleural effusion. 3. Moderate cardiomegaly. 4. No change in mildly enlarged mediastinal lymph nodes since CT of December 12, 2017. Electronically signed by: Brando Gregg M.D. 08/30/2018 12:24 PM
[2018-08-30] MEDS: TAMSULOSIN HCL 0.4 MG CAP PO SCH (20:44)
[2018-08-30] MEDS: ATORVASTATIN 40 MG TAB PO SCH (20:44)
[2018-08-30] MEDS: FINASTERIDE 5 MG TAB PO SCH (20:45)
[2018-08-30] MEDS: SENNA 8.6 MG TAB PO SCH (20:45)
[2018-08-31] MEDS: PIPERACILLIN/TAZOBACTAM 3.375 GM in DEXTROSE 5% 100 ML IV SCH ×2 (08:00→16:46)
[2018-08-31 08:56] LABS: BUN Creatinine Ratio 14.7 (10-20); Calcium 8.5 mg/dl (8.5-10.1); Est GFR (Non-African American) 68.2; Potassium 3.8 mmol/L (3.5-5.1)
[2018-08-31] MEDS: DOCUSATE SODIUM 100 MG CAP PO SCH ×2 (09:03→21:30)
[2018-08-31] MEDS: LACTOBACILLUS ACIDOPHILUS (FLORANEX) TAB PO SCH ×3 (09:03→16:45)
[2018-08-31] MEDS: PANTOprazole 40 MG TAB PO SCH (09:06)
[2018-08-31] MEDS: APIXABAN 5 MG TABLET PO SCH ×2 (09:06→21:30)
[2018-08-31] MEDS: POTASSIUM CHLORIDE 20 MEQ TABCR PO SCH (09:07)
[2018-08-31] MEDS: MULTIVITAMIN TAB PO SCH (09:07)
[2018-08-31] MEDS: CARVEDILOL 12.5 MG TAB PO SCH ×2 (09:07→21:26)
[2018-08-31] MEDS: BUDESONIDE/FORMOTEROL FUMARATE 160/4.5 60 PUFFS/INHALER INH SCH ×2 (09:08→21:31)
[2018-08-31] MEDS: CLOPIDOGREL BISULFATE 75 MG TAB PO SCH (09:08)
--- NOTE | 2018-08-31 12:31 | Hospitalist Progress Note ---
Date of Service August 31, 2018 Assessment & Plan (1) Wound of right foot: - Wound on first metatarsal head region with foul smelling drainage. - CT negative for underlying deep abscess or osteomyelitis; MRI negative for osteomyelitis. - Venous doppler negative for DVT; arterial duplex was negative for complete occlusion. - Wound culture +Proteus, Enterococcus and Finegoldia; blood cultures negative. - Continue Zosyn IV per sensitivities (end date: 08/31/18); convert to Augmentin BID x 2 weeks following completion of IV abx. - Orthopedics consulted, s/p I&D with wound vac placement on 08/27/18, POD#4. F/u ortho in 10-14 days. - Will need wound vac change on Saturday and f/u with wound care center after discharge. - Strict non-weight bearing on RLE; PT/OT following. - Consulted ID, appreciate input. (2) SOB (shortness of breath): - Developed SOB on 08/30, requires 2L via NC overnight. - Likely related to pulmonary edema. - CXR on 08/30: atelectasis and moderate pulm edema. - D-dimer was elevated; CT was negative for PE but showed large right pleural effusion with compressive atelectasis. - Held home Bumex on 08/28 and 08/29; resumed 2 mg PO daily on 08/30, responding well to home regimen. (3) CAD (coronary artery disease): - Has chronic stable angina at home; h/o 3-vessel CABG in 1999. - Follows with Dr. Hernandez; cleared by cardiology for procedure. - Continue home statin, beta ivy; resumed Eliquis and Plavix on 08/29. (4) Acute electrocardiogram changes: - Pre-op EKG showed T wave inversion in the lateral leads. - Trop levels were negative. - Consult cardiology, approved pre-operatively. (5) Acute on chronic diastolic heart failure: - Developed orthopnea and pleural effusion as noted above over last 48 hours (home diuretics were held on 08/28 and 08/29 due to hypotension) - Most recent TTE in August 2017 showed EF 60-65%, mild aortic sclerosis, reduced right ventricular systolic function. - Monitor daily weights -- weight is ~5 kg below baseline but he appears volume overloaded. - I/O's with goal net negative balance -- diuresed well yesterday following Bumex 2 mg PO. - Continue home Coreg 12.5 mg BID. - Resumed home Bumex 2 mg PO on 08/30, is responding well to home diuretic. (6) COPD (chronic obstructive pulmonary disease): - No evidence of acute exacerbation. - Continue home Symbicort. (7) Paroxysmal atrial flutter: - EKG showed atrial flutter with 4:1 pattern. - Restarted home Eliquis. (8) History of mitral valve repair: - Follows with cardiology. (9) BPH (benign prostatic hyperplasia): - Continue Finasteride and Flomax. (10) GERD (gastroesophageal reflux disease): - Hold home Prilosec; Protonix 40 mg qAM. (11) DVT prophylaxis: - Eliquis. Dispo: Med/surg for IV abx, ortho following. Discharge to [facility] on Saturday following wound vac change. Will need f/u with ortho in 10-14 days and f/u with wound care center arranged. Supervising Physician Co-Signing Physician Notes Attending Attestation: Chart reviewed, care plan d/w PA Nena Oshea. I agree w/ the betancourt components of her documentation. Cont antibiotics for right foot infection. Cont wound vac. Cont diuresis for acute/chronic diastolic CHF. Dispo planning. Compa Delatorre MD Subjective Pt. had SOB overnight, required oxygen with 2L via NC. Now weaned to room air and sitting up in chair. He denies SOB at rest, has SOB with exertion. Does not have LE edema. Chest imaging yesterday showed pulm edema. Will continue diuresis and monitor intake/output. Right foot wound is stable, denies pain. Plan for discharge to [facility] on 09/01/18. Review of Systems All systems reviewed & are unremarkable except as noted in HPI & below Constitutional: no fever, no chills, no fatigue, no weakness and no anorexia Respiratory: + dyspnea and + dyspnea on exertion; no cough, no chest congestion, no sputum production and no wheezing Cardiovascular: no chest pain, no palpitations, no lightheadedness and no edema Gastrointestinal: no abdominal pain, no nausea, no vomiting and no constipation Genitourinary (Male): no difficulty urinating Musculoskeletal: no joint pain Integumentary: + non-healing lesions (Right foot wound ) Allergy / Immunological: no rash Physical Exam Vital Signs (Past 24 Hours): Last Vital Signs Temp 36.5 C 08/31/18 07:59 Pulse 80 08/31/18 09:04 Resp 18 08/31/18 07:59 BP 126/71 08/31/18 09:04 Pulse Ox 93 08/31/18 09:04 Physical Exam: General: Resting comfortably in no apparent distress; A&OX3 HEENT: NC/AT; PERRLA with EOMI; [place] conjunctiva, MMM. Neck: Supple and nontender Cardiac: Irregular. Lungs: on room air; crackles in bilat lower lung bases. Abdomen: Bowel normoactive X 4; Nontender to palpation Extremities: Warm. No edema noted. Wound vac in place at site of right foot wound, plantar surface first metatarsal. Neuro: No focal weakness Skin: No rash Results & Data Laboratory Results 08/31/18 Range/Units 08:28 Sodium 143 (136-145) mmol/L Potassium 3.8 (3.5-5.1) mmol/L Chloride 109 H (98-107) mmol/L Carbon Dioxide 31 (21-32) mmol/L Anion Gap 3.0 (3-11) BUN 15 (7-18) mg/dl Creatinine 0.99 (0.6-1.4) mg/dl Est Cr Clr Drug Dosing 56.0 ml/min Est GFR ( Amer) 79.0 Est GFR (Non-Af Amer) 68.2 BUN/Creatinine Ratio 14.7 (10-20) Glucose 94 (70-99) mg/dl Calcium 8.5 (8.5-10.1) mg/dl (1) BPH (benign prostatic hyperplasia) Lower urinary tract symptom presence: symptoms absent Qualified Code(s): N40.0 - Benign prostatic hyperplasia without lower urinary tract symptoms (2) CAD (coronary artery disease) Associated angina: without angina Coronary Disease-Associated Artery/Lesion type: [place] artery [place] vs. transplanted heart: [place] heart Qualified Code(s): I25.10 - Atherosclerotic heart disease of [place] coronary artery without angina pectoris (3) COPD (chronic obstructive pulmonary disease) COPD type: unspecified COPD Qualified Code(s): J44.9 - Chronic obstructive pulmonary disease, unspecified (4) GERD (gastroesophageal reflux disease) Esophagitis presence: without esophagitis Qualified Code(s): K21.9 - Gastro- esophageal reflux disease without esophagitis
[2018-08-31] MEDS ORDERED: BUMETANIDE 1 MG TAB PO ONE (13:43)
[2018-08-31] MEDS: FINASTERIDE 5 MG TAB PO SCH (21:25)
[2018-08-31] MEDS: TAMSULOSIN HCL 0.4 MG CAP PO SCH (21:29)
[2018-08-31] MEDS: SENNA 8.6 MG TAB PO SCH (21:29)
[2018-08-31] MEDS: ATORVASTATIN 40 MG TAB PO SCH (21:31)
[2018-09-01 06:35] LABS: BUN Creatinine Ratio 15.4 (10-20); Calcium 8.3 mg/dl (8.5-10.1); Creatinine Clr Calc Pharmacy 52.3 ml/min; Est GFR (African American) 72.8; Est GFR (Non-African American) 62.8; Magnesium 1.9 mg/dl (1.8-2.4); Potassium 3.9 mmol/L (3.5-5.1)
[2018-09-01] MEDS ORDERED: AMOXICILLIN/CLAVULANATE 875 MG TAB PO SCH (08:00)
[2018-09-01] MEDS: BUMETANIDE 1 MG TAB PO SCH (08:56)
[2018-09-01] MEDS: LACTOBACILLUS ACIDOPHILUS (FLORANEX) TAB PO SCH (08:56)
[2018-09-01] MEDS: DOCUSATE SODIUM 100 MG CAP PO SCH (08:56)
[2018-09-01] MEDS: CARVEDILOL 12.5 MG TAB PO SCH (08:57)
[2018-09-01] MEDS: PANTOprazole 40 MG TAB PO SCH (08:57)
[2018-09-01] MEDS: APIXABAN 5 MG TABLET PO SCH (08:57)
[2018-09-01] MEDS: MULTIVITAMIN TAB PO SCH (08:58)
[2018-09-01] MEDS: POTASSIUM CHLORIDE 20 MEQ TABCR PO SCH (08:58)
[2018-09-01] MEDS: CLOPIDOGREL BISULFATE 75 MG TAB PO SCH (09:01)
[2018-09-01] MEDS: BUDESONIDE/FORMOTEROL FUMARATE 160/4.5 60 PUFFS/INHALER INH SCH (09:01)
--- NOTE | 2018-09-01 11:50 | XRay Report ---
XR chest 1V portable HISTORY: 88 years-old Male F/U Pleural Effusion follow-up study in a patient with pleural effusions COMPARISON: Chest radiograph and CTA chest 08/30/2018 TECHNIQUE: Portable AP view of the chest FINDINGS: Cardiac silhouette is enlarged, unchanged. Prosthetic mitral valve redemonstrated. Moderate right and small left pleural effusions. Pulmonary vascular congestion with interstitial coarsening has decreas ed from comparison. Bibasilar opacities redemonstrated. Degenerative changes of the shoulders and spi ne. IMPRESSION: 1. Cardiomegaly with decreased pulmonary edema. 2. Moderate right and small left pleural effusions redemonstrated with persistent yet mildly decrease d bibasilar opacities. The above report was generated using voice recognition software. It may contain grammatical, syntax o r spelling errors. Electronically signed by: Antolin Cowart M.D. 09/01/2018 11:49 AM
--- NOTE | 2018-09-01 18:06 | Discharge Summary ---
Date of Service September 01, 2018 Admission HPI Per Admitting Provider 88yo male presents with right foot infection for several days. He states on Saturday night he noticed a foul odor with some mild drainage from the bottom of his foot. He denies any pain in the foot itself but has had "soreness" in his right ankle for unspecified period of time. Denies any numbness or tingling in his feet. Denies claudication of the legs with walking. Principal Diagnosis R Foot Wound Infection Discharge Exam Constitutional WD/WN, vitals as above Eyes + anicteric sclerae Neck trachea midline Respiratory normal respiratory effort, lungs clear to auscultation Auscultation: + diminished lung sounds (bases b/l) Cardiovascular Rate/Rhythm: regular rate and regular rhythm Vessels: no JVD Gastrointestinal (Abdomen) Inspection/Auscultation: normal bowel sounds Percussion/Palpation: abdomen soft; abdomen nontender Musculoskeletal Head/Neck/Chest: normocephalic and head atraumatic Skin Wound vac placed to R foot Neurologic moves all extremities Psychiatric A+Ox3, euthymic affect Discharge Data Allergies Allergy/AdvReac Type Severity Reaction Status Date / Time aspirin AdvReac Intermediate GI Verified 08/27/18 16:01 ULCERATION- WHEN TAKEN WITH COUMADIN black pepper AdvReac Mild Verified 08/27/18 16:01 lisinopril AdvReac Mild Verified 08/27/18 16:01 Sulfa (Sulfonamide AdvReac Unknown "SULFA Verified 08/27/18 16:01 Antibiotics) DRUGS": HAS TOLERATED LASIX IN PAST Consultations 08/24/18 18:04 ED Decision to Admit Stat 08/24/18 21:10 Consult Orthopedic Surgery Routine 08/25/18 15:37 Consult Cardiology Routine 08/26/18 15:43 Consult Infectious Diseases Routine 08/27/18 19:04 Consult Case Management - Discharge Planning Routine Procedures Performed Operation Date: 08/27/18 07:00 Actual Procedures p Right Plantar Foot Ulcer Irrigation and Debridement(Right) - Michael Juarez DO Ordered Studies 08/24/18 15:42 CT foot RT wo con Stat US venous doppler LE RT Stat 08/25/18 US arterial duplex LE RT Routine 08/25/18 10:35 MR foot RT wo/w con Routine 08/30/18 10:56 CT angio chest PE protocol Urgent Hospital Course (1) Wound of right foot: - Wound on first metatarsal head region; CT and MRI negative for underlying osteomyelitis/abscess; venous doppler neg for DVT and arterial duplex negative for complete occlusion - Wound Cx with proteus, enterococcus, finegoldia, actinomyces; BCx with NGTD - Initially treated with Zosyn and converted to Augmentin BID to complete 14 days total after IV Abx (completion 09/14); continue probiotics; Tramadol PRN pain - Orthopedics followed - S/P I&D on 08/27; plan for NWB on RLE with wound vac placement and F/U in 10-14 days and wound care F/U (2) Acute on chronic diastolic heart failure: - Echo (Aug 2017) - EF 60-65%, mild aortic sclerosis, reduced RV systolic function - When comparing previous CXR it does appear he has a chronic R pleural effusion that was worsened in the setting of needing to hold diuretics initially -- Repeat CXR shows improvement with home dosed diuretics and good diuresis prior to D/C; CT negative for PE - Symptoms support orthopnea but also may be multifactorial as he reports once he coughs and takes his inhaler in the AM his symptoms improved - so maybe orthopnea/postnasal drip/chronic mucous production given COPD - Will continue home Bumex of 2 mg daily and recommend monitoring weights; could use supplemental O2 at night if necessary however saturates adequately on RA whe n awake - Continue Coreg 12.5 mg BID (3) CAD (coronary artery disease): - Has chronic stable angina at home; H/O 3-vessel CABG in 1999; Follows with Dr. Hernandez - Continue home statin, beta ivy; Eliquis, Plavix (4) Acute electrocardiogram changes: - Pre-op EKG showed T wave inversion in the lateral leads; trops negative; no ACS symptoms; cleared by cardiology for debridement (5) COPD (chronic obstructive pulmonary disease): - No evidence of acute exacerbation. - Continue home Symbicort. (6) Paroxysmal atrial flutter: - EKG showed atrial flutter with 4:1 pattern; Continue BB therapy and Eliquis (7) BPH (benign prostatic hyperplasia): - Continue Finasteride and Flomax. (8) GERD (gastroesophageal reflux disease): - Prilosec Total Time Total Time Spent Total Time Spent (In Minutes): Greater than 30 minutes Discharge Plan Discharge Items Patient Disposition: Transfer Detention Fac Reason For Visit: R FOOT INFECTION Discharge Diagnosis: Right Foot Infection Discharge Goals: Decrease discomfort, Improve disease control and Improve function Activity: Resume your previous activity Weightbearing: Right non-weightbearing Non-emergency contact: Primary Care Provider Call non-emergency contact if: you have any medication questions, your pain is not controlled and you have a fever Follow-up/Referrals: Chadd Narvaez DO [Surgeon] - (Call to schedule a follow up with Dr. Narvaez's clinic in ~1 week from discharge.) Karson Moran M.D. [Primary Care Provider] - Diet: Heart Healthy Diet Texture: Dental soft (bite-sized) Addtl Provider Instructions: ACTIVITY RECOMMENDATIONS: Limitations: Nonweightbearing on the right lower extremity at all times. SPECIAL CARE INSTRUCTIONS: * Some drainage onto the dressing is normal and is no cause for alarm. * Some swelling is natural especially after walking. * When resting, keep your foot elevated above the level of your heart. * Call [facility] if you notice: -Increased drainage -Fever over 101.5 degrees F -Severe constant pain BANDAGE: * Wound vac should be changed per instructions by wound clinic. * Leave bandage/cast in place unless otherwise directed. * Keep bandage/cast dry at all times. PIN CARE: * Leave pins alone. * If pins come loose or fall out, notify physician. FOLLOW UP VISIT WITH DR. NARVAEZ If appointment is not already scheduled: Please call [facility] after you get home today to schedule a follow-up appointment for [address] Narvaez at . Wound of Right Foot: - First metatarsal head region with drainage but no underlying abscess or osteomyelitis - negative on both CT and MRI - Venous doppler negative for DVT and arterial duplex without complete occlusion - Wound with proteus, enterococcus, finegoldia, and actinomyces; blood cultures negative - Augmentin BID for total of 2 weeks after completion of IV Abx - complete on 09/14/18 - Orthopedics - S/P I&D on 08/27; continue wound vac and have wound care F/U - Dr. Narvaez would like to see in 10-14 days for wound recheck -- Continue wound vac - Strict non-weight bearing on RLE SOB (shortness of breath): - Initially his diuretics were held and does have a pleural effusion and diuresing well with his home diuretics with renal function/electrolytes stable - Seems to be bothersome more at night and states this is partially chronic which may be some post-nasal drip and some of this pleural effusion; He states his symptoms improve with his inhaler in the morning and coughing up mucous - Recommend daily weights - Have used oxygen 2 L at night which could be resumed until he diureses further; currently remains on room air CAD (coronary artery disease): - Has chronic stable angina at home; h/o 3-vessel CABG in 1999. - Follows with Dr. Hernandez. - Continue home statin, beta ivy; resumed Eliquis and Plavix on 08/29. Acute on Chronic Diastolic Heart Failure: - Developed orthopnea and pleural effusion as noted above over last 48 hours (home diuretics were held on 08/28 and 08/29 due to hypotension) - Most recent TTE in August 2017 showed EF 60-65%, mild aortic sclerosis, reduced right ventricular systolic function. -Diuresing well following Bumex 2 mg PO. - Continue home Coreg 12.5 mg BID. - Review of previous CXR from December 2017 which had evidence of this pleural effusion so likely a chronic component - if this would not resolve could consider thoracentesis however symptomatically doing better with resumption of his diuretics and even his description of symptoms may be partially related to post nasal drip/COPD - Did repeat a F/U CXR today since resuming his home Bumex which shows improvement in the pleural effusion which should continue to improve now with his diuretics resumed but should be monitored COPD (chronic obstructive pulmonary disease): - No evidence of acute exacerbation. - Continue home Symbicort. Paroxysmal Atrial Flutter: - EKG showed atrial flutter with 4:1 pattern. - Restarted home Eliquis. History of mitral valve repair: - Follows with cardiology. BPH (benign prostatic hyperplasia): - Continue Finasteride and Flomax. Prescriptions: New amoxicillin-pot clavulanate 875-125 mg Tablet 1 tab PO BIDM Qty: 27 RF: 0 tramadol 50 mg Tablet 50 mg PO Q4H PRN (Reason: pain) 3 Days Qty: 18 RF: 0 Florastor 250 mg capsule 250 mg PO DAILY 14 Days Qty: 14 RF: 0 Continued atorvastatin 40 mg Tablet 40 mg PO QPM RF: 0 carvedilol [Coreg] 12.5 mg Tablet 12.5 mg PO BID RF: 0 bumetanide 2 mg tablet 2 mg PO DAILY RF: 0 clopidogrel [Plavix] 75 mg Tablet 75 mg PO DAILY RF: 0 potassium chloride [Klor-Con M20] 20 mEq Tablet,Er Particles/Crystals 20 meq PO DAILY RF: 0 tamsulosin [Flomax] 0.4 mg Capsule 0.4 mg PO QPM RF: 0 nitroglycerin 0.4 mg Tablet, Sublingual 0.4 mg sublingual UD RF: 0 omeprazole 20 mg Capsule,Delayed Release(Dr/Ec) 20 mg PO DAILY RF: 0 finasteride 5 mg Tablet 5 mg PO QPM RF: 0 Symbicort 160-4.5 mcg/actuation Hfa Aerosol Inhaler 1 puff INHALATION BID RF: 0 Eliquis 5 mg tablet 5 mg PO BID RF: 0 Stand-Alone Forms: [facility] Discharge Orders: Discharge Order (Routine); Ordered 09/01/18 Ordered By: Ninoska Mccarty Skilled Items Patient informed of condition?: Yes DNR: Yes Discharge Level of Care: Skilled Communicable Disease: No Discharge Prognosis: Stable Admission Data Admit Date/Time: 08/24/18 19:45 Attending Provider: Carlos Andrews Admit Provider: Compa Delatorre Primary Care Provider: Karson Moran Other Providers: Compa Delatorre ; Chadd Narvaez ; Daren Juan ; Sugey Helms Service: Medical Other Interventions: Discharge Summary Assessment (RN) Last Done: 09/01/18 12:25 Pending Studies at Discharge: No DC Date/Time DO NOT enter until pt leaves facility: 09/01/18 13:15
== END 2018-09-01 13:15 | DRG 604 ==
LOC: ED 14:54 → SUATTDRO 19:45 → 3N 19:45
DX: I25.10 Atherosclerotic heart disease of native coronary artery without angina pectoris; I50.33 Acute on chronic diastolic (congestive) heart failure; K21.9 Gastro-esophageal reflux disease without esophagitis; Z88.8 Allergy status to other drugs, medicaments and biological substances; I48.0 Paroxysmal atrial fibrillation; S91.301A Unspecified open wound, right foot, initial encounter; Z88.2 Allergy status to sulfonamides; N40.0 Benign prostatic hyperplasia without lower urinary tract symptoms; X58.XXXA Exposure to other specified factors, initial encounter; L84 Corns and callosities; J44.9 Chronic obstructive pulmonary disease, unspecified; Z88.6 Allergy status to analgesic agent

== ENCOUNTER 2019-01-16 21:41 | Inpatient (IN) ==
[2019-01-16] MEDS ORDERED: SODIUM CHLORIDE 0.9% 1000ML 1,000 ML IV ONE (21:58)
[2019-01-16 22:03] LABS: Basophils # (auto) 0.02 K/uL (0-0.2); Basophils % (auto) 0.1 %; Hematocrit (blood only) 33.6 % (42-52); Hemoglobin 11.4 g/dL (14.0-18.0); Immature Granulocytes # (auto) 0.17 K/uL (0.00-0.02); Immature Granulocytes % (auto) 0.8 %; Lymphocytes # (auto) 1.18 K/uL (1.2-3.4); Lymphocytes % (auto) 5.6 %; Mean Corpuscular Hgb Conc 33.9 g/dL (32-36); Mean Corpuscular Volume 82.6 fL (80-100); Mean Platelet Volume 9.6 fL (7.4-10.4); Monocytes # (auto) 1.42 K/uL (0.11-0.59); Monocytes % (auto) 6.8 %; Neutrophils # (auto) 18.11 K/uL (1.4-6.5); Neutrophils % (auto) 86.7 %; Platelet Count 183 K/uL (130-400); RDW Coefficient of Variation 15.1 % (11.5-14.5); RDW Standard Deviation 45.8 fL (36.4-46.3); Red Blood Count 4.07 M/uL (4.7-6.1)
--- NOTE | 2019-01-16 22:16 | XRay Report ---
XR hip BI w PEL1V CLINICAL HISTORY: s/p fall trauma. Pain. COMPARISON: 08/01/2017 DISCUSSION: The bones and joint spaces appear intact. There is no evidence of fracture, dislocation o r bony disease. There is no evidence for soft tissue swelling. Mild degenerative change of the hips IMPRESSION: No acute process. Mild degenerative change of the hips. The above report was generated using voice recognition software. It may contain grammatical, syntax or spelling errors. Electronically signed by: Dg Jiang M.D. 01/16/2019 10:15 PM
--- NOTE | 2019-01-16 22:17 | XRay Report ---
XR chest 1V portable CLINICAL HISTORY: weakness dyspnea COMPARISON STUDY: 09/01/2018 FINDINGS: Chronic right pleural effusion moderately improved from the prior exam. Trace pleural effus ion left base also improved. Mild increase in cardiac size compared to the prior study. Mid and upper lungs are clear. IMPRESSION: 1. Improving bibasilar pleural effusions. 2. Mild increase in cardiac size compared to the prior exam. The above report was generated using voice recognition software. It may contain grammatical, syntax or spelling errors. Electronically signed by: Dg Jiang M.D. 01/16/2019 10:16 PM
[2019-01-16 22:18] LABS: Alanine Aminotransferase 42 U/L (12-78); Albumin Level 2.4 gm/dl (3.4-5.0); Aspartate Aminotransferase 146 U/L (15-37); BUN Creatinine Ratio 23.9 (10-20); Blood Urea Nitrogen 45 mg/dl (7-18); Calcium 8.3 mg/dl (8.5-10.1); Carbon Dioxide 25 mmol/L (21-32); Chloride 108 mmol/L (98-107); Est GFR (African American) 36.6; Est GFR (Non-African American) 31.6; Glucose 103 mg/dl (70-99); Potassium 4.2 mmol/L (3.5-5.1); Sodium 140 mmol/L (136-145)
[2019-01-16 22:30] LABS: Albumin Globulin Ratio 0.7 (0.9-2); Alkaline Phosphatase 76 U/L (45-117); Bilirubin,Total 1.6 mg/dl (0.2-1); Globulin 3.3 gm/dl (2.5-4.0); Total Protein 5.7 gm/dl (6.4-8.2)
--- NOTE | 2019-01-16 22:33 | CT Scan Report ---
CT head/brain wo con CT DOSE: 1078.78 mGy.cm HISTORY: Trauma. Mental status change. s/p fall, eliquis and plavix TECHNIQUE: Multiaxial CT images of the head were performed without the use of intravenous contrast. A dose lowering technique was utilized adhering to the principles of ALARA. Comparison: 12/12/2017 Findings: The paranasal sinuses and mastoid air cells are clear. The calvarium and skull base are int act. The ventricles and sulci are within normal limits. There is no mass, hematoma, midline shift, or acute infarct. Age-related atrophy and chronic small vessel change Impression: No acute intracranial abnormality. Age-related atrophy and chronic small vessel change The above report was generated using voice recognition software. It may contain grammatical, syntax or spelling errors. Electronically signed by: Dg Jiang M.D. 01/16/2019 10:32 PM
--- NOTE | 2019-01-16 22:39 | CT Scan Report ---
CT cervical spine wo con CT DOSE: HISTORY: Trauma neck pain, fall TECHNIQUE: Multiaxial CT images of the cervical spine were performed and reformatted in the sagittal and coronal plane without the use of contrast. A dose lowering technique was utilized adhering to th e principles of ALARA. COMPARISON: 08/01/2017 FINDINGS: No fractures. No subluxation. Prevertebral soft tissues and the C1-C2 interval are intact. No pneumothorax. Considerable degenerative change throughout the entire cervical region. IMPRESSION: No fractures within the cervical spine. Considerable degenerative change The above report was generated using voice recognition software. It may contain grammatical, syntax or spelling errors. Electronically signed by: Dg Jiang M.D. 01/16/2019 10:38 PM
[2019-01-16] MEDS ORDERED: SODIUM CHLORIDE 0.9% 1000ML 500 ML IV ONE (22:42)
[2019-01-16 22:55] LABS: Appearance Urine Cloudy (Clear); Bacteria Urine Automated Negative (Negative); Blood Urine Negative (Negative); Color Urine Orange; Epithelial Cell Urine Auto >30 /lpf (0-5); Glucose Urine UA Negative (Negative); Ketones Urine Negative (Negative); Leukocyte Esterase Urine Trace (Negative); Nitrite Urine Positive (Negative); Protein Urine 1+ (Negative); Specific Gravity Urine 1.024 (1.000-1.030); Urobilinogen Urine Negative (Negative)
[2019-01-16 23:01] LABS: Bilirubin Urine Negative (Negative); Ictotest Urine Negative (Negative)
[2019-01-16 23:09] LABS: Renal Epithelial Cells Urine 0-5 /lpf (0-5)
[2019-01-16] MEDS ORDERED: PIPERACILL/TAZOBAC CONSULT ACTIVE PRN (23:20)
[2019-01-16] MEDS ORDERED: PIPERACILLIN/TAZOBACTAM 4.5 GM/120 ML BAG IV ONE (23:20)
[2019-01-16] MEDS ORDERED: OPTIRAY 320 125ml IV PRN (23:33)
--- NOTE | 2019-01-16 23:39 | History & Physical Report ---
Date of Service January 16, 2019 Assessment & Plan (1) Fall: 88 y/o M Hx CHF, CAD, HTN, HLD, paroxysmal flutter, COPD. Presents after he was found on the floor of his home by a family member. He did not know how he wound up there, or exactly how long he had been there. The pt complains of BL hip pain with ambulation only at the time of admission. He denies any CP, SOB, cough, nausea, vomiting, dysuria or fevers. One week ago he had a nose bleed, but otherwise, he states he has been in his normal state of health. Initial labs are notable for mild DELMI, leukocytosis, a + UA and a markedly elevated troponin. Troponin is chronically elevated but not to the same degree. A CT of the chest/abdomen/pelvis demonstrated BL pleural effusions which appear chronic, mucous plugging and either atelectasis or a RLL consolidation. Lucencies are seen in the femoral heads. An EKG demonstrated anterior inversions but was unchanged from a prior. 1) Fall - found on floor with no recollection of preceding events. We will monitor on telematry overnight. He may also benefit from ambulatory monitor as considering his elevated trop, a significant arrhythmia cannot be ruled out. 2) Elevated trop/CAD - no symptoms to support ACS - we will trend his trop and obtain an AM echo to evaluate for WMAs. He will remain on Lipitor, Plavix, Coreg and is fully anticoagulated. 3) Paroxysmal flutter - sinus rhythm on arrival - cont Eliquis, Coreg 4) UTI - will place pt on Ceftriaxone 5) CHF, pleural effusions - chronic - cont Coreg - the pt is clinically dehydrated and received IVF - I do not suspect PNM clinically 6) DELMI - IVF - trend BMP 7) COPD - cont prescribed inhalers 8) Nonspecific lucencies of femoral heads - diagnosis may not be worth pursuing DNR/DNI Total time for this admit including review of labs, meds, imaging, records - discussion with pt and ER attending - 48 min Present on Admission?: Yes History of Present Illness Primary Care Provider: NO PCP 88 y/o M Hx CHF, CAD, HTN, HLD, paroxysmal flutter, COPD. Presents after he was found on the floor of his home by a family member. He did not know how he wound up there, or exactly how long he had been there. The pt complains of BL hip pain with ambulation only at the time of admission. He denies any CP, SOB, cough, nausea, vomiting, dysuria or fevers. One week ago he had a nose bleed, but otherwise, he states he has been in his normal state of health. Initial labs are notable for mild DELMI, leukocytosis, a + UA and a markedly elevated troponin. Troponin is chronically elevated but not to the same degree. A CT of the chest/abdomen/pelvis demonstrated BL pleural effusions which appear chronic, mucous plugging and either atelectasis or a RLL consolidation. Kathie cencies are seen in the femoral heads. An EKG demonstrated anterior inversions but was unchanged from a prior. PMH: 1) Diastolic, R heart CHF 2) HTN 3) HLD 4) Paroxysmal atrial flutter - Eliquis 5) COPD 6) CAD 7) NSVT 8) BPH 9) Sternotomy infection 10) Nonhealing foot ulcer requiring debridement 08/2018 11) PUD 12) Mitral stenosis 13) R pleural effusion 14) Chronic, mild troponin elevation Surgical: 1) Mitral vallve annuloplasty 2) CABG - 3V Social: Distant smoking history Lives alone Family: Father had heart disease Allergies Allergy/AdvReac Type Severity Reaction Status Date / Time aspirin AdvReac Intermediate GI Verified 01/16/19 22:19 ULCERATION- WHEN TAKEN WITH COUMADIN black pepper AdvReac Mild Verified 01/16/19 22:19 lisinopril AdvReac Mild Verified 01/16/19 22:19 Sulfa (Sulfonamide AdvReac Unknown "SULFA Verified 01/16/19 22:19 Antibiotics) DRUGS": HAS TOLERATED LASIX IN PAST Home Medications Home Medications Medication Instructions Recorded Confirmed Type Eliquis 5 mg PO BID 08/24/18 01/16/19 History Symbicort 1 puff INHALATION BID 08/24/18 01/16/19 History atorvastatin 40 mg PO QPM 08/24/18 01/16/19 History bumetanide 2 mg PO QAM 08/24/18 01/16/19 History carvedilol [Coreg] 12.5 mg PO BID 08/24/18 01/16/19 History clopidogrel [Plavix] 75 mg PO QAM 08/24/18 01/16/19 History finasteride 5 mg PO QPM 08/24/18 01/16/19 History nitroglycerin 0.4 mg SUBLINGUAL UD 08/24/18 01/16/19 History omeprazole 20 mg PO QAM 08/24/18 01/16/19 History potassium chloride [Klor-Con M20] 20 meq PO QAM 08/24/18 01/16/19 History tamsulosin [Flomax] 0.4 mg PO QPM 08/24/18 01/16/19 History ipratropium-albuterol 3 ml INHALATION BID 01/16/19 01/16/19 History Past Med/Surg History Medical History Proteus mirabilis infection (Acute) Streptococcal infection (Acute) CAD (coronary artery disease) (Chronic) Wound of right foot (Acute) Atrial fibrillation (Chronic) Hypertension (Chronic) Mitral valve disorder (Chronic) CHF (congestive heart failure) (Resolved) BPH (benign prostatic hyperplasia) COPD (chronic obstructive pulmonary disease) Chronic diastolic (congestive) heart failure Hyperlipidemia 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 Paroxysmal atrial flutter Surgical History H/O mitral valve repair 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 Social History Preferred Language: [place] Communication Ability: Effective 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: No Beliefs That Will Affect Care: None marital status: / Current Living Situation: Alone current occupational status: retired current occupation: worked 18 years at [employer] in [place]; served in [employer] other: lives alone in [place]; has 2 children Feels Safe at Home: Yes Smoking Status: Former smoker Tobacco Type: cigarettes ; Cigarettes Per Day: 1- 2 ppd since teenage years ; Second Hand Exposure: No ; Hx Alcohol Use: No Hx Substance Use: No Review of Systems Review of Systems: Gen: Denies fevers, night sweats, rigors, fatigue, malaise, weight loss/gain ENT: Denies congestion, throat pain, hearing loss Eyes: Denies acute visual changes CV: Denies CP, palpitations Pulmonary: Denies SOB, cough, wheezing GI: Denies N/V, diarrhea, constipation Neuro: Denies acute or unilateral weakness, acute gait impairment, headache or acute visual changes Musculoskeletal: BL hip pain with ambulation Endocrine: Denies polydipsia, polyuria Skin: Denies acute rashes or ulcers Physical Exam Physical Exam: General: Very pleasant, elderly M, AAO x 3, no distress ENT: No erythema or exudates, no thrush Eyes: NAV, EOMI Head and neck: Normocephalic, atraumatic, No JVD, neck is supple. Chest/heart: Nontender, S1,2, RRR, no murmurs, no gallops Lungs: No air entry on R to mid lung - no wheezing Abdomen: Nontender, nondistended, BS+ Neuro: AAO x 3, speech is clear, no unilateral weakness or loss of sensation, coordination intact Musculoskeletal: No joint inflammation, muscle tenderness Skin: No acute rashes or ulcers Extremities: No clubbing, cyanosis, + edema Results & Data Vital Signs (Past 12 Hours) Vital Signs Temp Pulse Pulse Resp BP BP BP 01/16/19 23:15 98/51 L 108/54 L 01/16/19 23:00 80 16 108/54 L 01/16/19 22:32 80 24 98/56 L 01/16/19 21:58 98.2 F 79 22 96/51 L Pulse Ox 01/16/19 23:15 01/16/19 23:00 94 01/16/19 22:32 94 01/16/19 21:[address] chest, abdomen, pelvis: No PE or dissection. RLL mucous plugging and consolidation - atelectasis vs PNM. Moderate R and small L pleural effusions. Lucent areas in femoral head BL - cannot r/o neoplastic process. PG Care Time/CCT Total # of Minutes Spent Total Time Spent with Patient: Total time spent is greater than 50% in coordination of care (as documented) at patient's floor/unit and/or counseling patient:
--- NOTE | 2019-01-17 00:33 | Emergency Department Note ---
Entered by Miguelina Jain acting as a scribe for Ricardo Warren MD History of Present Illness General Chief complaint: Fall Stated complaint: fall, AMS Time Seen by Provider: 01/16/19 21:45 Source: patient Mode of arrival: ambulatory Limitations: no limitations History of Present Illness Provider complaint: fall injuries Onset (ago): hour(s) 10 Location: head Pain Consistency: + other (episode ) Maximum Pain Intensity: 10 Relieved By: not by other (water) Associated symptoms: + confusion and + other (leg pain, neck pain); no chest pain, no headaches and no shortness of breath The patient is an 88 year old male w/ PMHX of A-fib and HTN who presents to the ED w/ CC of an episode of fall injuries that happened 10 hours ago. The patient states that he was found on the floor by his daughter this morning and is unsure of how he got there. The patient states he does not rem ember what he had for dinner last night. The patient states that he has new pain in his legs and neck. The patient states that he lives by himself but his daughter regularly checks on him. The charge nurse states that he patient had a lift assist around 1600 when his daughter found him on the floor. The charge nurse states that the patients daughter noticed her father was not getting better after drinking water. She reports that the patients daughter states that the patient is typically dehydrated. The patient states that he has been taking his medications daily. The patient denies a headache, chest pain, and shortness of breath. The patient states that he does not have a history of seizures. Home Medications Home Medications Medication Instructions Recorded Confirmed Type Eliquis 5 mg PO BID 08/24/18 01/16/19 History Symbicort 1 puff INHALATION BID 08/24/18 01/16/19 History atorvastatin 40 mg PO QPM 08/24/18 01/16/19 History bumetanide 2 mg PO QAM 08/24/18 01/16/19 History carvedilol [Coreg] 12.5 mg PO BID 08/24/18 01/16/19 History clopidogrel [Plavix] 75 mg PO QAM 08/24/18 01/16/19 History finasteride 5 mg PO QPM 08/24/18 01/16/19 History nitroglycerin 0.4 mg SUBLINGUAL UD 08/24/18 01/16/19 History omeprazole 20 mg PO QAM 08/24/18 01/16/19 History potassium chloride [Klor-Con M20] 20 meq PO QAM 08/24/18 01/16/19 History tamsulosin [Flomax] 0.4 mg PO QPM 08/24/18 01/16/19 History ipratropium-albuterol 3 ml INHALATION BID 01/16/19 01/16/19 History Allergies Allergy/AdvReac Type Severity Reaction Status Date / Time aspirin AdvReac Intermediate GI Verified 01/16/19 22:19 ULCERATION- WHEN TAKEN WITH COUMADIN black pepper AdvReac Mild Verified 01/16/19 22:19 lisinopril AdvReac Mild Verified 01/16/19 22:19 Sulfa (Sulfonamide AdvReac Unknown "SULFA Verified 01/16/19 22:19 Antibiotics) DRUGS": HAS TOLERATED LASIX IN PAST Past Med/Surg History Medical History Proteus mirabilis infection (Acute) Streptococcal infection (Acute) CAD (coronary artery disease) (Chronic) Wound of right foot (Acute) Atrial fibrillation (Chronic) Hypertension (Chronic) Mitral valve disorder (Chronic) CHF (congestive heart failure) (Resolved) BPH (benign prostatic hyperplasia) COPD (chronic obstructive pulmonary disease) Chronic diastolic (congestive) heart failure Hyperlipidemia 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 Other Information That Helps Us Care for You: No other: lives alone in [place]; has 2 children Feels Safe at Home: Yes Safety Concerns: Feels Safe At This Time Smoking Status: Former smoker Tobacco Type: cigarettes ; Cigarettes Per Day: 1-2 ppd since teenage years ; Second Hand Exposure: No ; Hx Alcohol Use: No Hx Substance Use: No Review of Systems See HPI for pertinent positives & negatives. and A total of 10 systems reviewed and were otherwise negative Physical Exam Vital Signs Vital Signs - 24 hr 01/16/19 21:58 01/16/19 22:32 01/16/19 23:00 Temperature 36.8 C Temperature Source Oral Sepsis Recent Fever Within 48 Hours No Sepsis New/Unexplained Change in Mental Status No Sepsis Action Taken by Nursing No Action Required Pulse Rate 79 80 Pulse Rate [Apical] 80 Pulse Rate from SpO2 Sensor 78 Respiratory Rate 22 24 16 Respiratory Effort / Characteristics Non-Labored Spontaneous Non-Labored Spontaneous Respiratory Depth Normal Normal Blood Pressure 96/51 L 108/54 L Blood Pressure [Left Arm] Blood Pressure [Right Arm] 98/56 L Blood Pressure Mean 66 72 Blood Pressure Mean [Left Arm] Blood Pressure Mean [Right Arm] 70 Pulse Oximetry 95 94 94 Oxygen Delivery Method Room Air Room Air Room Air 01/16/19 23:15 Temperature Temperature Source Sepsis Recent Fever Within 48 Hours Sepsis New/Unexplained Change in Mental Status Sepsis Action Taken by Nursing Pulse Rate Pulse Rate [Apical] Pulse Rate from SpO2 Sensor Respiratory Rate Respiratory Effort / Characteristics Respiratory Depth Blood Pressure Blood Pressure [Left Arm] 98/51 L Blood Pressure [Right Arm] 108/54 L Blood Pressure Mean Blood Pressure Mean [Left Arm] 66 Blood Pressure Mean [Right Arm] 72 Pulse Oximetry Oxygen Delivery Method GENERAL: Well appearing, well nourished, NAD, non-toxic. Wearing a baseball cap. EYE EXAM: Normal conjunctiva. PERRL, no anisocoria and EOM's grossly intact w/o pain. OROPHARYNX: Moist mucous membranes. Grossly normal dentition. NECK: Supple, no nuchal rigidity, no adenopathy, non-tender. No signs of meningismus. LUNGS: Clear to auscultation. Normal chest wall mechanics. HEART: NSR, no MRG. CHEST: Well headlined midline sternotomy scar. ABDOMEN: Abdomen soft, non-tender, normo-active bowel sounds, no masses, no rebound or guarding. Midline incisional scar, well healed. BACK: No CVA TTP. SKIN: No rashes and no bruising. No evidence of any ulcers on the buttocks or heels. UPPER EXTREMITIES: Upper extremities are grossly normal. LOWER EXTREMITIES: No pitting edema. No calf pain. Mild bilateral lower ex tremities weakness 4/5 strength secondary to pain. NEURO EXAM: A&O x3, cranial nerves II-XII grossly intact, normal speech, , moves all 4 extremities on command w/o issue w/ mild decreased LE strenght 2/2 to pain. Course 2151: Past medical records reviewed. The patient was evaluated in room C6. A complete history and physical exam was performed. 2243: I spoke to the patient and he verbalized that he is a DNR, DNI, does not want any major surgeries done. 2303: I reevaluated the patient at this time and he is feeling better. I disc ussed the test results and treatment plan with the patient. He verbally agreed and understood. 2340: I discussed the patients case with Dr. Phillips, [facility]. He recommends that the patient not be put on Heparin given the patients lack of chest pain, sob, and EKG changes. 0006: I discussed the patients case with Dr. Zarate, [facility]. He agreed to evaluate the patient for further management. Consultations Consultation #1: I discussed the patients case with Dr. Phillips, [facility]. He recommends that the patient not be put on Heparin given the patients lack of chest pain, sob, and EKG changes. Time: 23:40 Consultation #2: I discussed the patients case with Dr. Zarate [facility]. He agreed to evaluate the patient for further management. Time: 00:06 Administered Medications Acetaminophen (Tylenol) 650 mg PO Q4H PRN PRN Reason: Pain Stop: 02/16/19 09:56 Last Admin: 01/17/19 11:07 Dose: 650 mg Documented by: [id number] Albuterol (Duoneb) 3 ml INH BIDR [facility] Stop: 02/16/19 07:59 Last Admin: 01/17/19 07:19 Dose: 3 ml Documented by: [id number] Apixaban (Eliquis) 5 mg PO BID [facility] Stop: 02/16/19 08:59 Last Admin: 01/17/19 10:17 Dose: 5 mg Documented by: [id number] Budesonide/Formoterol Fumarate (Symbicort 160mcg/4.5mcg) 1 puffs INH BID [facility] Stop: 02/16/19 08:59 Last Admin: 01/17/19 10:17 Dose: 1 puffs Documented by: [id number] Carvedilol (Coreg) 12.5 mg PO BID [facility] Stop: 02/16/19 08:59 Last Admin: 01/17/19 08:21 Dose: 12.5 mg Documented by: [id number] Clopidogrel [facility] ([facility]ix) [facility] Stop: 02/16/19 08:59 Last Admin: 01/17/19 08:21 Dose: 75 mg Documented by: [id number] Piperacillin Sod/Tazobactam (Sod 3.375 gm/ Dextrose) 115 mls @ 28.75 mls/hr IV Q8H [facility]; Protocol Stop: 01/27/19 05:59 Last Admin: 01/17/19 14:40 Dose: 28.8 mls/hr Documented by: [id number] Infusion: 01/17/19 09:07 Dose: 0 mls/hr Documented by: [id number] Admin: 01/17/19 05:26 Dose: 28.8 mls/hr Documented by: [id number] Pantoprazole Sodium (Protonix) 40 mg PO [facility] Stop: 02/16/19 08:59 Last Admin: 01/17/19 08:22 Dose: 40 mg Documented by: [id number] Potassium Chloride (Klor-Con M20) 20 meq [facility] Stop: 02/16/19 08:59 Last Admin: 01/17/19 08:22 Dose: 20 meq Documented by: [id number] Discontinued Medications Bumetanide (Bumex) 2 mg PO [facility] Stop: 02/16/19 08:59 Last Admin: 01/17/19 08:22 Dose: 2 mg Documented by: [id number] Sodium Chloride (Nss 1000ml) 1,000 mls @ 999 mls/hr IV .Q1H1M ONE Stop: 01/16/19 22:58 Last Infusion: 01/16/19 23:11 Dose: 0 mls/hr Documented by: [id number] Admin: 01/16/19 22:07 Dose: 999 mls/hr Documented by: [id number] Sodium Chloride (Nss 1000ml) 500 mls @ 999 mls/hr IV .Q31M ONE Stop: 01/16/19 23:12 Last Infusion: 01/17/19 02:20 Dose: 0 mls/hr Documented by: [id number] Infusion: 01/17/19 00:23 Dose: 200 mls/hr Documented by: [id number] Infusion: 01/16/19 23:51 Dose: 0 mls/hr Documented by: [id number] Admin: 01/16/19 23:00 Dose: 200 mls/hr Documented by: [id number] Piperacillin Sod/Tazobactam Sod (Zosyn) 4.5 gm in 120 mls @ 240 mls/hr IV NOW ONE Stop: 01/16/19 23:49 Last Infusion: 01/17/19 00:22 Dose: 0 mls/hr Documented by: [id number] Admin: 01/16/19 23:51 Dose: 240 mls/hr Documented by: [id number] Ioversol (Optiray 320 125ml) 120 ml IV ONCE PRN PRN Reason: Interaction Checking Stop: 01/20/19 23:32 Last Admin: 01/16/19 23:34 Dose: 120 ml Documented by: [id number] Medical Decision Making Medical Records Attestation: I reviewed the patient's medical records. Home Medications Current Medication List: was personally reviewed by me Laboratory Data Attestation: I reviewed the patient's lab results. Result diagrams: 01/17/19 06:47 01/17/19 06:47 Lab Results 01/16/19 01/16/19 01/16/19 Range/Units 21:26 21:26 22:45 WBC 20.90 H (4.8-10.8) K/uL RBC 4.07 L (4.7-6.1) M/uL Hgb 11.4 L (14.0-18.0) g/dL Hct 33.6 L (42-52) % MCV 82.6 (80-100) fL MCH 28.0 (25-34) pg MCHC 33.9 (32-36) g/dL RDW Std Deviation 45.8 (36.4-46.3) fL RDW Coeff of Michelle 15.1 H (11.5-14.5) % Plt Count 183 (130-400) K/uL MPV 9.6 (7.4-10.4) fL Immature Gran % (Auto) 0.8 % Neut % (Auto) 86.7 % Lymph % (Auto) 5.6 % [place] % (Auto) 6.8 % Eos % (Auto) 0.0 % Baso % (Auto) 0.1 % Immature Gran # (Auto) 0.17 H (0.00-0.02) K/uL Neut # (Auto) 18.11 H (1.4-6.5) K/uL Lymph # (Auto) 1.18 L (1.2-3.4) K/uL [place] # (Auto) 1.42 H (0.11-0.59) K/uL Eos # (Auto) 0.00 (0-0.5) K/uL Baso # (Auto) 0.02 (0-0.2) K/uL Sodium 140 (136-145) mmol/L Potassium 4.2 (3.5-5.1) mmol/L Chloride 108 H (98-107) mmol/L Carbon Dioxide 25 (21-32) mmol/L Anion Gap 7.0 (3-11) BUN 45 H (7-18) mg/dl Creatinine 1.87 H (0.6-1.4) mg/dl Est Cr Clr Drug Dosing Not Reportable Est GFR ( Amer) 36.6 Est GFR (Non-Af Amer) 31.6 BUN/Creatinine Ratio 23.9 H (10-20) Glucose 103 H (70-99) mg/dl Calcium 8.3 L (8.5-10.1) mg/dl Magnesium 2.0 (1.8-2.4) mg/dl Total Bilirubin 1.6 H (0.2-1) mg/dl AST 146 H (15-37) U/L ALT 42 (12-78) U/L Alkaline Phosphatase 76 (45-117) U/L Troponin I 5.690 H* (0-0.045) ng/ml Total Protein 5.7 L (6.4-8.2) gm/dl Albumin 2.4 L (3.4-5.0) gm/dl Globulin 3.3 (2.5-4.0) gm/dl Albumin/Globulin Ratio 0.7 L (0.9-2) TSH 2.340 (0.300-4.500) uIu/ml Urine Color [place] Urine Appearance Cloudy A (Clear) Urine pH 5.0 (4.5-7.5) Ur Specific [place] 1.024 (1.000-1.030) Urine Protein 1+ H (Negative) Urine Glucose (UA) Negative (Negative) Urine Ketones Negative (Negative) Urine Blood Negative (Negative) Urine Nitrite Positive A (Negative) Urine Bilirubin Negative (Negative) Urine Urobilinogen Negative (Negative) Ur Leukocyte Esterase Trace H (Negative) Urine WBC (Auto) 10-30 H (0-5) /hpf Urine RBC (Auto) 5-10 H (0-4) /hpf U Hyaline Cast (Auto) 10-30 H (0-5) /lpf U Epithel Cells (Auto) >30 H (0-5) /lpf Urine Bacteria (Auto) Negative (Negative) Ur Renal Epithelial Cell 0-5 (0-5) /lpf Granular Casts 5-10 H (0) /lpf WBC Casts 1-5 H (0) /lpf Imaging Data Radiologist's Impression: Radiology results as stated below per my review and the radiologist's interpretation: XR chest 1V portable CLINICAL HISTORY: weakness dyspnea COMPARISON STUDY: 09/01/2018 FINDINGS: Chronic right pleural effusion moderately improved from the prior exa m. Trace pleural effusion left base also improved. Mild increase in cardiac size compared to the prior study. Mid and upper lungs are clear. IMPRESSION: 1. Improving bibasilar pleural effusions. 2. Mild increase in cardiac size compared to the prior exam. The above report was generated using voice recognition software. It may contain grammatical, syntax or spelling errors. Electronically signed by: Dg Jiang M.D. 01/16/2019 10:16 PM XR hip BI w [id number] CLINICAL HISTORY: s/p fall trauma. Pain. COMPARISON: 08/01/2017 DISCUSSION: The bones and joint spaces appear intact. There is no evidence of fracture, dislocation or bony disease. There is no evidence for soft tissue swelling. Mild degenerative change of the hips IMPRESSION: No acute process. Mild degenerative change of the hips. The above report was generated using voice recognition software. It may contain grammatical, syntax or spelling errors. Electronically signed by: Dg Jiang M.D. 01/16/2019 10:[address] head/brain wo con CT DOSE: 1078.78 mGy.cm HISTORY: Trauma. Mental status change. s/p fall, eliquis and plavix TECHNIQUE: Multiaxial CT images of the head were performed without the use of intravenous contrast. A dose lowering technique was utilized adhering to the principles of ALARA. Comparison: 12/12/2017 Findings: The paranasal sinuses and mastoid air cells are clear. The calvarium and skull base are intact. The ventricles and sulci are within normal limits. There is no mass, hematoma, midline shift, or acute infarct. Age-related atrophy and chronic small vessel change Impression: No acute intracranial abnormality. Age-related atrophy and chronic small vessel change The above report was generated using voice recognition software. It may contain grammatical, syntax or spelling errors. Electronically signed by: Dg Jiang M.D. 01/16/2019 10:[address] cervical spine wo con CT DOSE: HISTORY: Trauma neck pain, fall TECHNIQUE: Multiaxial CT images of the cervical spine were performed and reformatted in the sagittal and coronal plane without the use of contrast. A dose lowering technique was utilized adhering to the principles of ALARA. COMPARISON: 08/01/2017 FINDINGS: No fractures. No subluxation. Prevertebral soft tissues and the C1-C2 interval are intact. No pneumothorax. Considerable degenerative change throughout the entire cervical region. IMPRESSION: No fractures within the cervical spine. Considerable degenerative change The above report was generated using voice recognition software. It may contain grammatical, syntax or spelling errors. Electronically signed by: Dg Jiang M.D. 01/16/2019 10:[address] chest with contrast: No fracture, no PE, moderate right and small left pleural effusions. Right lower lobe mucous plugging with adjacent rounded consolidation which can represent atelectasis and/or infiltrate. Left basilar atelectasis. No pneumothorax. No aortic dissection or aneurysm. CT abdomen and pelvis with contrast: No acute injury, no aortic dissection, osteoarthritis of bilateral joints. Nonspecific lucent areas in bilateral femoral heads. These are nonspecific. Follow-up is advised to exclude the possibility of a neoplastic process. Moderate prostatomegaly with bladder wall hypertrophy. Radiologist: Elan Mccabe MD ECG Data Attestation: I personally reviewed and interpreted this ECG as follows: Indication: other (fall injuries ) Rate (beats per minute): 78 Rhythm: atrial flutter Findings: + other (3:1 Av conduction, narrow QRS, normal axis) and + T-wave inversion (anteriorly, laterally, inferiorly) Comparison ECG Date: from (08/25/2018) Change: no significant change Additional Comments: REPEAT EKG 01/16/2019 at 2320- NO ACUTE CHANGE Blood Pressure Blood Pressure Findings: Low blood pressure Blood Pressure Disposition: further management by hospitalist JESSIE Narrative The patient is an 88 year old male w/ PMHX of A-fib and HTN who presents to the ED w/ CC of an episode of fall injuries that happened 10 hours ago. Differential Diagnosis includes but is not limited to dehydration, stroke, anemia, hypoglycemia, hyponatremia, hypernatremia, urinary tract infection, pneumonia, bronchitis, sepsis, gastroenteritis, additional abdominal pathology, metabolic abnormalities and infections. Patient was seen and evaluated the bedside. The patient been found down for. Of time which was unknown by the patient's daughter. They initially did do a lift assist but the patient's daughter was concerned as the patient did not remove the event. Could have had an element of concussion. The patient upon presentation has no acute complaints and is well-appearing at the bedside. The patient did complain of mild hip pain no obvious deformities in the legs are of symmetric length. Patient did a blood work completed along with CT the brain EKG and troponin. Patient is also on Eliquis and Plavix. He did take his evening medications per the patient's daughter when she arrived. The patient is DNR/DNI. Patient also does not want any invasive procedures. The patient's blood work did show a mild white count and given this concern with associated elevated troponin I did do a very limited bedside [id number] ultrasound which does not show any evidence of obvious pericardial effusion. The patient appears to have good squeeze. The patient did have a CT of the chest and abdomen pelvis. Patient does have a chronic right greater than left pleural effusion. Patient again does not complain of any chest pains or shortness of breath the patient's EKG does not appear changed to prior. I discussed case with the on- call option trader who stated that given the lack of chest pain shortness of breath or EKG changes and the fact that the patient is already on Eliquis and Plavix he would not recommend heparin at this time. I did speak the on-call carlos lemos who agreed to Michell further evaluate treat the patient. Patient was admitted to the medicine service. Of note patient was also covered with antibiotics as the patient's urinalysis was elevated with an associated white count. Impression & Plan Syncope, Acute UTI, DELMI (acute kidney injury), Non-ST elevation (NSTEMI) myocardial infarction Critical Care Time Critical Care Time: Yes Total Critical Care Time: 47 I have personally spent greater than 47 minutes of critical care time in direct management of this patient. This includes bedside care, interpretation of diagnostic studies, and testing, discussion with consultants, patient, and family members, and other require inpatient management activities. This 47 minutes is in excess of all separately billable procedures. Discharge Plan Visit Data *Final* Discharge Date/Time: 01/17/19 00:21 Chief Complaint: Fall Stated Complaint: fall, AMS ED Provider: Ricardo Warren Discharge Problem: Syncope, Acute UTI, DELMI (acute kidney injury), Non-ST elevation (NSTEMI) myocardial infarction Patient Disposition: Admitted As Inpatient Discharge Instructions Interventions: ED Discharge Assessment Last Done: 01/17/19 00:21 Discharge Problem: Syncope Qualifiers: Syncope type: unspecified Qualified Code(s): R55 - Syncope and collapse The scribe's documentation has been prepared under my direction and personally reviewed by me in its entirety. I confirm that the note above accurately reflects all work, treatment, procedures, and medical decision making performed by me.
[2019-01-17] MEDS ORDERED: NITROGLYCERIN SL 0.4 MG/TAB TAB SL SCH (00:51)
[2019-01-17] MEDS: PIPERACILLIN/TAZOBACTAM 3.375 GM in DEXTROSE 5% 100 ML IV SCH ×3 (05:26→22:10)
[2019-01-17 07:00] LABS: Basophils # (auto) 0.01 K/uL (0-0.2); Basophils % (auto) 0.1 %; Eosinophils # (auto) 0.03 K/uL (0-0.5); Eosinophils % (auto) 0.2 %; Hematocrit (blood only) 33.7 % (42-52); Hemoglobin 10.9 g/dL (14.0-18.0); Immature Granulocytes # (auto) 0.07 K/uL (0.00-0.02); Immature Granulocytes % (auto) 0.4 %; Lymphocytes # (auto) 0.91 K/uL (1.2-3.4); Lymphocytes % (auto) 5.8 %; Mean Corpuscular Hgb Conc 32.3 g/dL (32-36); Mean Platelet Volume 9.7 fL (7.4-10.4); Monocytes # (auto) 1.04 K/uL (0.11-0.59); Monocytes % (auto) 6.6 %; Neutrophils # (auto) 13.69 K/uL (1.4-6.5); Neutrophils % (auto) 86.9 %; Platelet Count 151 K/uL (130-400); RDW Coefficient of Variation 15.2 % (11.5-14.5); RDW Standard Deviation 47.1 fL (36.4-46.3); Red Blood Count 4.01 M/uL (4.7-6.1); White Blood Count 15.75 K/uL (4.8-10.8)
--- NOTE | 2019-01-17 07:00 | CT Scan Report ---
CT ANGIOGRAM OF THE CHEST CLINICAL HISTORY: Atypical chest pain and shortness of breath. Possible pulmonary wasn't. COMPARISON STUDY: Chest CT dated 10/16/2018 TECHNIQUE: Following the IV administration of 120 mL of Optiray-320, CT angiogram of the thorax was p erformed from the thoracic inlet to the lung bases utilizing the pulmonary embolus protocol. Images a re reviewed in the axial, sagittal, and coronal planes. IV contrast was administered without complica tion. MIP imaging was performed. A dose lowering technique was utilized adhering to the principles o f ALARA. FINDINGS: There are enlarged mediastinal lymph nodes. There is a precarinal lymph node measuring 12 mm. There a re calcified hilar lymph nodes. There is mild aneurysmal dilatation of the ascending thoracic aorta which measures 4 cm the level of the main pulmonary artery. There is less than optimal pulmonary arterial opacification, but there are no filling defects to shanel rakesh acute pulmonary embolism. There is an increasing moderate right pleural effusion. There is a trace left pleural effusion. There are dependent airspace opacities, likely representing compressive atelectasis. There is lower lobe bronchial wall thickening and mucous plugging. There is a 2 cm right middle lobe opacity, likely representing rounded atelectasis. Follow-up is madeline mmended to exclude a pulmonary mass. IMPRESSION: 1. No evidence of acute pulmonary embolism 2. Mediastinal lymphadenopathy 3. Enlarging right pleural effusion and small left pleural effusion 4. Lower lobe bronchial wall thickening and mucous plugging 5. Basilar airspace opacity statistically representing compressive atelectasis although an infectious process could appear similar 6. 2 cm right middle lobe opacity statistically representing round atelectasis. A 3 month follow-up c hest CT should be considered. Electronically signed by: Ramakrishna Pagan M.D. 01/17/2019 6:59 AM
--- NOTE | 2019-01-17 07:07 | CT Scan Report ---
CT abd pelvis IV con only CLINICAL HISTORY: Elevated white count, abdominal pain, altered mental status. COMPARISON STUDY: 12/12/2017 TECHNIQUE: The patient was scanned in a dynamic helical fashion during intravenous administration of 120 cc of Optiray 320 A dose lowering technique was utilized adhering to the principles of ALARA. CT DOSE: FINDINGS: Lower chest: There is a moderate right pleural effusion and small left pleural effusion. There are ba silar airspace opacity statistically atelectatic Liver: No focal hepatic masses are visualized. There is a stable area of left hepatic lobe anterior h erniation. The portal vein appears patent. Gallbladder: Cholelithiasis Spleen: Normal in size and attenuation. Pancreas: Unremarkable. Adrenal glands: Unremarkable. Kidneys: There are right renal cysts, the largest of which measures 42 mm. Bowel: There are no transition zones indicate bowel obstruction. There is no acute diverticulitis. Th ere is no evidence of acute appendicitis. Peritoneum: There is no intraperitoneal free air or abdominal ascites. Vasculature: The abdominal aorta is normal in course and caliber. Adenopathy: There is a borderline enlarged left iliac chain lymph node. There is a mildly enlarged ga strohepatic ligament lymph node. There is a borderline enlarged right inguinal lymph node. Pelvic viscera: The prostate is significantly enlarged. There is bladder wall thickening. Skeletal structures: The bones are osteopenic. Arthritic changes are present within the hips. Cystic lesions are present within the proximal femurs with a nonaggressive appearance. IMPRESSION: 1. Moderate right pleural effusion small left pleural effusion with associated basilar airspace opaci ties 2. No evidence of bowel obstruction. No evidence of free air 3. No evidence of acute diverticulitis. No evidence of acute appendicitis 4. Upper abdominal ventral hernia containing a small portion of liver and stomach 5. Marked prostatomegaly. Bladder wall thickening. 6. Several mildly enlarged lymph nodes. Electronically signed by: Ramakrishna Pagan M.D. 01/17/2019 7:06 AM
[2019-01-17] MEDS: ALBUT/IPRATROP 3MG/0.5MG NEB 3 ML VIAL INH SCH ×2 (07:19→19:15)
[2019-01-17 07:24] LABS: BUN Creatinine Ratio 29.4 (10-20); Creatinine Clr Calc Pharmacy 35.3 ml/min; Est GFR (African American) 45.3; Est GFR (Non-African American) 39.1; Magnesium 2.2 mg/dl (1.8-2.4)
[2019-01-17] MEDS: CARVEDILOL 12.5 MG TAB PO SCH ×2 (08:21→20:45)
[2019-01-17] MEDS: CLOPIDOGREL BISULFATE 75 MG TAB PO SCH (08:21)
[2019-01-17] MEDS: PANTOprazole 40 MG TAB PO SCH (08:22)
[2019-01-17] MEDS: POTASSIUM CHLORIDE 20 MEQ TABCR PO SCH (08:22)
[2019-01-17] MEDS ORDERED: BUMETANIDE 1 MG TAB PO SCH (09:00)
[2019-01-17] MEDS ORDERED: ACETAMINOPHEN 325 MG TAB PO PRN (09:57)
[2019-01-17] MEDS: BUDESONIDE/FORMOTEROL FUMARATE 160/4.5 60 PUFFS/INHALER INH SCH ×2 (10:17→20:44)
[2019-01-17] MEDS: APIXABAN 5 MG TABLET PO SCH ×2 (10:17→20:46)
--- NOTE | 2019-01-17 12:04 | Cardiology Consultation ---
Date of Consultation January 17, 2019 Assessment & Plan (1) Syncope: The patient's episode of syncope is concerning for a cardiac dysrhythmia. He does demonstrate significant bradycardia with his atrial flutter. Would continue on his current dose of carvedilol and observe on telemetry. We must rule out the need for a cardiac pacemaker. The possibility of a ventricular tachy dysrhythmia also exists realizing his elevated troponin and coronary artery disease. (2) Atrial flutter: The patient has been in atrial flutter since presentation. He has been managed as an outpatient using carvedilol and Eliquis. Would continue those medications for now. (3) Elevated troponin: Troponin time presentation was 5.9 is now trending down. Echocardiogram notes an inferior wall motion abnormality which is new compared with a study done in August 2017. suspect he could have had a recent event, however, the patient denies angina pectoris. Would continue to trend troponin. Dr. Hernandez will assume his care on Saturday and decide on further testing. (4) CAD (coronary artery disease): The patient underwent a 3 vessel bypass procedure in 1999 along with a mitral valve repair. Continue medical management for now. (5) History of mitral valve repair: The patient had a mitral valve repair performed at the time of his bypass surgery in the year 1999. History of Present Illness Attending Physician: Mukul Daniels MD History of Present Illness Mr. Mckinney His an 88-year-old male admitted after an episode of apparent syncope yesterday. This consultation was ordered to assist in his management. Of note, the patient typically follows with Dr. Hernandez in the outpatient setting. The patient was in his usual state of health until yesterday. He explains that he was in his living room and was about to walk to the kitchen to prepare his supper. That is the last thing that he remembers until opening his eyes and seeing his daughter leaning over him. he was on the living room floor. He does not know how long he was unconscious. There was no evidence of incontinence nor a postictal state. He has never known of a prior syncopal event, however, has had numerous mechanical falls. The patient has been stable from a cardiac perspective since his 3 vessel bypass in 1999. this was performed at [facility] and included an MCGRATH to the LAD, an SVG to the ramus intermedius, and SVG to the RCA. He also had a mitral valve repaired at that same time. Echocardiogram performed in August 2017 noted normal left ventricular systolic function without wall motion abnormality. There is a decrease in right ventricular systolic function. There was thickening but normal excursion of the mitral leaflets. The patient does not experience exertional angina pectoris or limiting dyspnea. There has been no premorbid rest angina. He further denies presyncope, PND, orthopnea, lower extremity edema, and claudication. The patient also carries a history of paroxysmal atrial flutter. He is treated with carvedilol and Eliquis. The patient does not experience palpitations with his atrial dysrhythmia. Currently, patient is resting comfortably in bed without complaints. Past medical and surgical history 1. Coronary artery disease -see above 2. CABG x3 - 1999 4. Mitral valve repair -1999 5. Chronic diastolic CHF 6. Paroxysmal atrial flutter 7. History of wide complex tachycardia - atrial fibrillation with aberrancy versus nonsustained VT 8. Hypertension 9. Hypercholesterolemia 10. LVH 11. COPD 12. Peptic ulcer disease 13. 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 DNR Social history , lives alone Quit tobacco in 1976 No tobacco Family history Father had early coronary artery disease Review of systems A 10 point review of systems was negative except for that described above. Allergies Allergy/AdvReac Type Severity Reaction Status Date / Time aspirin AdvReac Intermediate GI Verified 01/16/19 22:19 ULCERATION- WHEN TAKEN WITH COUMADIN black pepper AdvReac Mild Verified 01/16/19 22:19 lisinopril AdvReac Mild Verified 01/16/19 22:19 Sulfa (Sulfonamide AdvReac Unknown "SULFA Verified 01/16/19 22:19 Antibiotics) DRUGS": HAS TOLERATED LASIX IN PAST Home Medications Home Medications Medication Instructions Recorded Confirmed Type Eliquis 5 mg PO BID 08/24/18 01/16/19 History Symbicort 1 puff INHALATION BID 08/24/18 01/16/19 History atorvastatin 40 mg PO QPM 08/24/18 01/16/19 History bumetanide 2 mg PO QAM 08/24/18 01/16/19 History carvedilol [Coreg] 12.5 mg PO BID 08/24/18 01/16/19 History clopidogrel [Plavix] 75 mg PO QAM 08/24/18 01/16/19 History finasteride 5 mg PO QPM 08/24/18 01/16/19 History nitroglycerin 0.4 mg SUBLINGUAL UD 08/24/18 01/16/19 History omeprazole 20 mg PO QAM 08/24/18 01/16/19 History potassium chloride [Klor-Con M20] 20 meq PO QAM 08/24/18 01/16/19 History tamsulosin [Flomax] 0.4 mg PO QPM 08/24/18 01/16/19 History ipratropium-albuterol 3 ml INHALATION BID 01/16/19 01/16/19 History Patient History Medical History Proteus mirabilis infection (Acute) Streptococcal infection (Acute) CAD (coronary artery disease) (Chronic) Wound of right foot (Acute) Atrial fibrillation (Chronic) Hypertension (Chronic) Mitral valve disorder (Chronic) CHF (congestive heart failure) (Resolved) BPH (benign prostatic hyperplasia) COPD (chronic obstructive pulmonary disease) Chronic diastolic (congestive) heart failure Hyperlipidemia 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 Paroxysmal atrial flutter Surgical History H/O mitral valve repair S/P CABG x 3 [facility] - 1999 Family History Father Asthma Heart disease Mother Leukemia Social History Preferred Language: Kyrgyz Communication Ability: Effective 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 Beliefs That Will Affect Care: None marital status: / Current Living Situation: Alone current occupational status: retired current occupation: worked 18 years at [employer] in [place]; served in [employer] Other Information That Helps Us Care for You: No other: lives alone in [place]; has 2 children Feels Safe at Home: Yes Safety Concerns: Feels Safe At This Time Smoking Status: Former smoker Tobacco Type: cigarettes ; Cigarettes Per Day: 1- 2 ppd since teenage years ; Second Hand Exposure: No ; Hx Alcohol Use: No Hx Substance Use: No Physical Exam Physical Exam: In general this is a well-developed well-nourished white male in no acute distress. HEENT exam is negative. Neck is supple with full carotid upstrokes. There are no carotid bruits. Jugular venous pressure is flat at 90. There is no thyromegaly. Cardiovascular exam reveals a regular rhythm with a normal S1 and S2. heart sounds are distant. No S3, S4, or murmurs are noted. Lungs are clear without rales, rhonchi, or wheezes. Abdomen is soft and nontender without bruits. Extremities reveal intact radial artery and posterior tibial pulses bilaterally. There is no peripheral edema. Results & Data Vital Signs (Past 12 Hours) Vital Signs Temp Pulse Pulse Resp BP BP Pulse Ox 01/17/19 11:15 36.8 C 64 16 106/68 99 01/17/19 10:09 58 L 01/17/19 07:43 36.7 C 80 16 100/59 L 95 01/17/19 07:21 81 18 94 01/17/19 04:27 36.7 C 66 18 94/52 L 97 01/17/19 01:00 78 01/17/19 00:35 36.4 C L 77 16 108/56 L 95 01/17/19 00:00 79 23 109/52 L 95 Laboratory Results CBC notes a hemoglobin of 10.9, hematocrit 33.7, white count 15.7, and a platelet count of [id number]. Electrolytes note a sodium of 140, potassium 4.0, chloride 108, bicarb 24, BUN 46, creatinine 1.57, glucose of 106. initial troponin was 5.9 with follow-up values of 4.5 and 3.57. Diagnostic Findings EKG notes atrial flutter with a controlled ventricular response. There is 3-1 AV conduction. There is an anterolateral ST and T-wave abnormality. satellite project site monitor notes atrial flutter with a controlled ventricular response. Heart rate was noted to be as low as 35 beats per minute overnight. Echocardiogram today notes normal systolic function in akinesis of the proximal inferior wall and inferoseptum. Chest x-ray notes cardiomegaly and bilateral pleural effusions. Chest CT noted no evidence of pulmonary embolism. Bilateral pleural effusions noted. There is a 2 cm opacity in the right middle lobe. CT scan head was negative. PG Care Time/CCT Total # of Minutes Spent Total Time Spent with Patient: Total time spent is greater than 50% in coordination of care (as documented) at patient's floor/unit and/or counseling patient: (1) CAD (coronary artery disease) Associated angina: without angina Coronary Disease-Associated Artery/Lesion type: [place] artery [place] vs. transplanted heart: [place] heart Qualified Code(s): I25.10 - Atherosclerotic heart disease of [place] coronary artery without angina pectoris (2) Syncope Syncope type: unspecified Qualified Code(s): R55 - Syncope and collapse
--- NOTE | 2019-01-17 12:59 | Hospitalist Progress Note ---
Date of Service January 17, 2019 Assessment & Plan (1) Syncope: Found on floor with no recollection of preceding events. Significant arrhythmia cannot be ruled out. - Seen by cardiology - Appreciate recs - Monitor on telemetry - Follow troponins (2) Elevated troponin: No symptoms to support ACS. EKG with no acute ischemic changes. Hx of 3v CABG at [facility] in 1999; no further invasive testing since then. Echo on 01/17 shows new inferior wall motion abnormality from prior in 08/2017. - Troponin was initially 5.7, downtrending to 3.6 by 01/16 - Seen by cardiology - Possible stress vs. cath on Saturday? (3) DELMI (acute kidney injury): Baseline Cr ~1.0-1.2. Cr was 1.9 on admission. - Downtrending with IV fluids - Now 1.6 on 01/16. - Hold Bumex - Monitor Cr (4) Acute UTI: UA on 01/16 indicated infection. - Follow urine culture - Continue Zosyn for now (5) Diastolic CHF: Echo on 01/16 showed EF 50-55%. On admission, he appeared hypovolemic and received IV fluids. None further given his history. - Holding his Bumex until Cr recovers - Monitor volume status (6) Abnormal finding on radiology exam: CT a/p on 01/16 showed "Cystic lesions are present within the proximal femurs with a nonaggressive appearance." Unclear significance. - If his bilateral hip pain doesn't improve, would consider dedicated CT of hips. - X-rays of the hips on 01/16 did not show any abnormalities CTA chest on 01/16 showed "2 cm right middle lobe opacity statistically representing round atelectasis. A 3 month follow-up chest CT should be considered." - Follow up as outpatient (7) Atrial flutter: In 3:1 atrial flutter on EKG on admission. - Continue apixaban - Continue Coreg (8) COPD (chronic obstructive pulmonary disease): Breathing is presently at baseline. - Continue home inhalers - DuoNebs PRN (9) DVT prophylaxis: On apixaban Subjective Bilateral leg pain is his chief complaint at present. He notes it in the hip area on both sides, worse when walking. Review of Systems Review of Systems: All systems reviewed & are unremarkable except as noted in HPI & below Physical Exam Constitutional: WD/WN, vitals as above Eyes: EOM intact bilaterally; no conjunctival abnormality ENMT: external ear and nose normal, oropharynx normal Neck: trachea midline, no thyromegaly normal visual inspection Respiratory: normal respiratory effort, lungs clear to auscultation no respiratory distress Cardiovascular: RRR, no murmur, no edema Gastrointestinal (Abdomen): Inspection/Auscultation: abdomen normal to inspection; abdomen not distended Musculoskeletal: no cyanosis or clubbing, extremities motor strength 5/5 Pain over the hips bilaterally. No bruising or swelling noted. Skin: no rashes, warm and dry Neurologic: moves all extremities and awake Psychiatric: Orientation: alert, oriented to person and cooperative Results & Data Vital Signs (Past 12 Hours) Vital Signs Temp Pulse Pulse Resp BP Pulse Ox 01/17/19 11:15 36.8 C 64 16 106/68 99 01/17/19 10:09 58 L 01/17/19 07:43 36.7 C 80 16 100/59 L 95 01/17/19 07:21 81 18 94 01/17/19 04:27 36.7 C 66 18 94/52 L 97 01/17/19 01:00 78 PG Care Time/CCT Total # of Minutes Spent Total Time Spent with Patient: Total time spent is greater than 50% in coordination of care (as documented) at patient's floor/unit and/or counseling patient: (1) Syncope Syncope type: unspecified Qualified Code(s): R55 - Syncope and collapse (2) COPD (chronic obstructive pulmonary disease) COPD type: unspecified COPD Qualified Code(s): J44.9 - Chronic obstructive pulmonary disease, unspecified
[2019-01-17] MEDS: TAMSULOSIN HCL 0.4 MG CAP PO SCH (20:45)
[2019-01-17] MEDS: FINASTERIDE 5 MG TAB PO SCH (20:45)
[2019-01-17] MEDS: ATORVASTATIN 40 MG TAB PO SCH (20:46)
--- NOTE | 2019-01-18 05:27 | Progress Note ---
Date of Service January 18, 2019 Received page that patient had a single positive BCx of Gram positive cocci overnight. On record review, patient is presently on zosyn for a UTI (with urine culture pending). Primary admit diagnosis is syncope. Serology at the time of the BCx was negative for blood MRSA. Patient has been afebrile throughout his admission. Discussed case with Dr. Zarate. Will defer to primary team if they wish to add additional antibiotics. Jan Horner, PGY3 Overnight call Results & Data Vital Signs (Past 12 Hours) Vital Signs Temp Pulse Pulse Resp BP BP Pulse Ox 01/18/19 00:00 58 L 01/17/19 23:47 36.6 C 58 L 22 92/51 L 96 01/17/19 19:17 36.5 C 57 L 22 107/53 L 99 01/17/19 18:45 52 L
[2019-01-18] MEDS: PIPERACILLIN/TAZOBACTAM 3.375 GM in DEXTROSE 5% 100 ML IV SCH ×3 (05:34→21:40)
[2019-01-18 06:12] LABS: Hematocrit (blood only) 34.6 % (42-52); Hemoglobin 11.2 g/dL (14.0-18.0); Mean Corpuscular Hgb Conc 32.4 g/dL (32-36); Mean Corpuscular Volume 84.8 fL (80-100); Platelet Count 157 K/uL (130-400); RDW Coefficient of Variation 15.2 % (11.5-14.5); RDW Standard Deviation 47.4 fL (36.4-46.3); Red Blood Count 4.08 M/uL (4.7-6.1); White Blood Count 10.74 K/uL (4.8-10.8)
[2019-01-18 06:48] LABS: BUN Creatinine Ratio 30.4 (10-20); Calcium 8.1 mg/dl (8.5-10.1); Est GFR (African American) 51.1; Est GFR (Non-African American) 44.1; Magnesium 2.3 mg/dl (1.8-2.4); Potassium 3.9 mmol/L (3.5-5.1)
[2019-01-18] MEDS: ALBUT/IPRATROP 3MG/0.5MG NEB 3 ML VIAL INH SCH (06:58)
[2019-01-18] MEDS: BUDESONIDE/FORMOTEROL FUMARATE 160/4.5 60 PUFFS/INHALER INH SCH ×2 (07:51→20:28)
[2019-01-18] MEDS: POTASSIUM CHLORIDE 20 MEQ TABCR PO SCH (07:53)
[2019-01-18] MEDS: PANTOprazole 40 MG TAB PO SCH (07:53)
[2019-01-18] MEDS: APIXABAN 5 MG TABLET PO SCH ×2 (07:53→20:27)
[2019-01-18] MEDS: CLOPIDOGREL BISULFATE 75 MG TAB PO SCH (07:53)
[2019-01-18] MEDS: CARVEDILOL 12.5 MG TAB PO SCH ×2 (08:09→20:27)
--- NOTE | 2019-01-18 09:17 | Hospitalist Progress Note ---
Date of Service January 18, 2019 Assessment & Plan (1) Syncope: Found on floor with no recollection of preceding events. Significant arrhythmia cannot be ruled out. - cardiology consulted, strong chance this could be arrhythmia, also with evidence of possible small cardiac event - continue to monitor for arrhythmias, still need to determine if he would need pacer to prevent bradycardia - trop trending down (2) Elevated troponin: likely a small NSTEMI with troponin of 5.9 on admission, trending down no chest pain or pressure however, he has new wall motion abnormality on echo will determine stress test vs cath tomorrow with cardiology (3) DELMI (acute kidney injury): Baseline Cr ~1.0-1.2. Cr was 1.9 on admission. improved with IV fluids, Cr down to 1.4 today, making adequate urine could consider rhabdomyolysis, check CK tomorrow (4) Acute UTI: UA on 01/16 indicated infection. - Follow urine culture, growing gram negative bacilli - Continue Zosyn for now (5) Diastolic CHF: Echo on 01/16 showed EF 50-55%. On admission, he appeared hypovolemic and received IV fluids. None further given his history. - Holding his Bumex until Cr recovers, perhaps resume tomorrow - Monitor volume status (6) Abnormal finding on radiology exam: CT a/p on 01/16 showed "Cystic lesions are present within the proximal femurs with a nonaggressive appearance." Unclear significance. - If his bilateral hip pain doesn't improve, would consider dedicated CT of hips. - X-rays of the hips on 01/16 did not show any abnormalities CTA chest on 01/16 showed "2 cm right middle lobe opacity statistically representing round atelectasis. A 3 month follow-up chest CT should be considere d." - Follow up as outpatient (7) Atrial flutter: In 3:1 atrial flutter on EKG on admission. - Continue apixaban - Continue Coreg (8) COPD (chronic obstructive pulmonary disease): Breathing is presently at baseline, no wheezing on exam - Continue home inhalers - DuoNebs PRN (9) DVT prophylaxis: On apixaban Subjective patient sitting up at bedside, feels well, no complaints ate entire breakfast, feels like he will need to move bowels soon no dyspnea, no chest pain or pressure has some mild left hip pain from being on the ground at home reviewed labs, CBC stable, Cr down to 1.42 from 1.8, electrolytes stable reviewed chart, appreciate cardiology consult from yesterday discussed possible heart cath with patient, he is agreeable Review of Systems Review of Systems: All systems reviewed & are unremarkable except as noted in HPI & below Constitutional: no fever, no chills and no sweats Respiratory: no cough and no dyspnea Cardiovascular: no chest pain and no edema Gastrointestinal: no abdominal pain, no nausea, no vomiting, no constipation and no diarrhea/loose stools Musculoskeletal: + joint pain (left hip from being on the ground) Physical Exam Constitutional: WD/WN, vitals as above Eyes: PERRL, conjunctivae normal, anicteric sclerae ENMT: external ear and nose normal, oropharynx normal Neck: trachea midline, no thyromegaly Respiratory: normal respiratory effort, lungs clear to auscultation Cardiovascular: RRR, no murmur, no edema Gastrointestinal (Abdomen): normal bowel sounds, soft, nontender, no hepatosplenomegaly Musculoskeletal: no cyanosis or clubbing, extremities motor strength 5/5 Skin: no rashes, warm and dry Neurologic: patellar DTR's 2+ bilat, sensation intact and PERRL, EOMI, accommodation nl, no face palsy, no dysarthria Psychiatric: A+Ox3, euthymic affect Lymphatic: no cervical or axillary lymphadenopathy Results & Data Vital Signs (Past 12 Hours) Vital Signs Temp Pulse Pulse Resp BP BP Pulse Ox 01/18/19 08:03 76 130/58 L 01/18/19 07:40 36.3 C L 58 L 16 87/40 L 99 01/18/19 00:00 58 L 01/17/19 23:47 36.6 C 58 L 22 92/51 L 96 Laboratory Results Laboratory Results - last 24 hr 01/16/19 01/18/19 01/18/19 23:50 05:47 05:47 WBC 10.74 RBC 4.08 L Hgb 11.2 L Hct 34.6 L MCV 84.8 MCH 27.5 MCHC 32.4 RDW Std Deviation 47.4 H RDW Coeff of Micehlle 15.2 H Plt Count 157 MPV 10.0 Sodium 138 Potassium 3.9 Chloride 107 Carbon Dioxide 26 Anion Gap 5.0 BUN 43 H Creatinine 1.42 H Est Cr Clr Drug Dosing 39.0 Est GFR ( Amer) 51.1 Est GFR (Non-Af Amer) 44.1 BUN/Creatinine Ratio 30.4 H Glucose 83 Calcium 8.1 L Magnesium 2.3 Bld Cult Staph aureus PCR Negative Blood Culture MRSA PCR Negative Microbiology 01/16/19 22:45 Urine,Clean Catch Urine Culture - Preliminary Gram negative bacilli 01/16/19 23:50 Blood Aerobic Blood Culture - Preliminary Gram positive cocci 01/16/19 23:50 Blood Anaerobic Blood Culture - Preliminary No growth in Anaerobic bottle after 24 hours. 01/16/19 23:43 Blood Aerobic Blood Culture - Preliminary No growth in Aerobic bottle after 24 hours. 01/16/19 23:43 Blood Anaerobic Blood Culture - Preliminary No growth in Anaerobic bottle after 24 hours. Medications Administered Current Inpatient Medications Acetaminophen (Tylenol) 650 mg PO Q4H PRN PRN Reason: Pain Stop: 02/16/19 09:56 Last Admin: 01/17/19 11:07 Dose: 650 mg Documented by: Albuterol (Duoneb) 3 ml INH BIDR [facility] Stop: 02/16/19 07:59 Last Admin: 01/18/19 06:58 Dose: Not Given Documented by: Apixaban (Eliquis) 5 mg PO BID [facility] Stop: 02/16/19 08:59 Last Admin: 01/18/19 07:53 Dose: 5 mg Documented by: Atorvastatin Calcium (Lipitor) 40 mg PO QPM [facility] Stop: 02/16/19 20:59 Last Admin: 01/17/19 20:46 Dose: 40 mg Documented by: Budesonide/Formoterol Fumarate (Symbicort 160mcg/4.5mcg) 1 puffs INH BID [facility] Stop: 02/16/19 08:59 Last Admin: 01/18/19 07:51 Dose: 1 puffs Documented by: Carvedilol (Coreg) 12.5 mg PO BID [facility] Stop: 02/16/19 08:59 Last Admin: 01/18/19 08:09 Dose: 12.5 mg Documented by: Clopidogrel Bisulfate (Plavix) 75 mg PO QAM [facility] Stop: 02/16/19 08:59 Last Admin: 01/18/19 07:53 Dose: 75 mg Documented by: Finasteride (Proscar) 5 mg PO QPM [facility] Stop: 02/16/19 20:59 Last Admin: 01/17/19 20:45 Dose: 5 mg Documented by: Piperacillin Sod/Tazobactam (Sod 3.375 gm/ Dextrose) 115 mls @ 28.75 mls/hr IV Q8H [facility]; Protocol Stop: 01/27/19 05:59 Last Admin: 01/18/19 05:34 Dose: 28.8 mls/hr Documented by: Miscellaneous Information (Consult) 1 ea N/A UD PRN PRN Reason: Consult Stop: 02/15/19 23:19 Nitroglycerin (Nitrostat) 0.4 mg [place] [facility] [place]: 02/16/19 00:50 Pantoprazole Sodium (Protonix) 40 mg PO QAM [facility] Stop: 02/16/19 08:59 Last Admin: 01/18/19 07:53 Dose: 40 mg Documented by: Potassium Chloride (Klor-Con M20) 20 meq PO QAM [facility] Stop: 02/16/19 08:59 Last Admin: 01/18/19 07:53 Dose: 20 meq Documented by: Tamsulosin HCl (Flomax) 0.4 mg PO QPM [facility] Stop: 02/16/19 20:59 Last Admin: 01/17/19 20:45 Dose: 0.4 mg Documented by: PG Care Time/CCT Total # of Minutes Spent Total Time Spent with Patient: Total time spent is greater than 50% in coordination of care (as documented) at patient's floor/unit and/or counseling patient: (1) Syncope Syncope type: unspecified Qualified Code(s): R55 - Syncope and collapse (2) COPD (chronic obstructive pulmonary disease) COPD type: unspecified COPD Qualified Code(s): J44.9 - Chronic obstructive pulmonary disease, unspecified
--- NOTE | 2019-01-18 10:25 | Cardiology Progress Note ---
Date of Service January 18, 2019 Assessment & Plan (1) Syncope: The patient continues to demonstrate demonstrate bradycardia with his atrial flutter. Would continue on his current dose of carvedilol and observe on telemetry. We must rule out the need for a cardiac pacemaker. The possibility of a ventricular tachy dysrhythmia also exists realizing his elevated troponin and coronary artery disease. (2) Atrial flutter: Atrial flutter persists. He has been managed as an outpatient using carvedilol and Eliquis. Would continue those medications for now. (3) Elevated troponin: Troponin time presentation was 5.9 is now trending down. Echocardiogram notes an inferior wall motion abnormality which is new compared with a study done in August 2017. Suspect he could have had a recent event, however, the patient denies angina pectoris. Dr. Hernandez will assume his care on tomorrow and decide on further testing. (4) CAD (coronary artery disease): The patient underwent a 3 vessel bypass procedure in 1999 along with a mitral valve repair. Continue medical management. (5) History of mitral valve repair: The patient had a mitral valve repair performed at the time of his bypass surgery in the year 1999. Subjective The patient is resting comfortably the bedside chair complaints of chest pain dyspnea. Physical Exam Physical Exam: In general this is a well-developed well-nourished white male in no acute distress. HEENT exam is negative. Neck is supple with full carotid upstrokes. There are no carotid bruits. Jugular venous pressure is flat at 90. There is no thyromegaly. Cardiovascular exam reveals a regular rhythm with a normal S1 and S2. heart sounds are distant. No S3, S4, or murmurs are noted. Lungs are clear without rales, rhonchi, or wheezes. Abdomen is soft and nontender without bruits. Extremities reveal intact radial artery and posterior tibial pulses bilaterally. There is no peripheral edema. Results & Data Vital Signs (Past 12 Hours) Vital Signs Temp Pulse Pulse Resp BP BP Pulse Ox 01/18/19 08:03 76 130/58 L 01/18/19 07:40 36.3 C L 58 L 16 87/40 L 99 01/18/19 00:00 58 L 01/17/19 23:47 36.6 C 58 L 22 92/51 L 96 Laboratory Results CBC notes a hemoglobin of 11.2, hematocrit 34.6, white count 10.7, and platelet count of [id number]. Electrolytes noted a sodium of 138, potassium 3.9, chloride 107, bicarb 26, BUN 43, creatinine 1.42, and glucose of 83. Diagnostic Findings traffic monitor specialist notes atrial flutter with a controlled ventricular response. Heart rate was thirty-eight over night when sleeping. PG Care Time/CCT Total # of Minutes Spent Total Time Spent with Patient: Total time spent is greater than 50% in coordination of care (as documented) at patient's floor/unit and/or counseling patient: (1) CAD (coronary artery disease) Associated angina: without angina Coronary Disease-Associated Artery/Lesion type: false pass artery [place] vs. transplanted heart: false pass heart Qualified Code(s): I25.10 - Atherosclerotic heart disease of false pass coronary artery without angina pectoris (2) Syncope Syncope type: unspecified Qualified Code(s): R55 - Syncope and collapse
[2019-01-18] MEDS ORDERED: ALBUT/IPRATROP 3MG/0.5MG NEB 3 ML VIAL NEB PRN (13:23)
[2019-01-18] MEDS: TAMSULOSIN HCL 0.4 MG CAP PO SCH (20:27)
[2019-01-18] MEDS: FINASTERIDE 5 MG TAB PO SCH (20:27)
[2019-01-18] MEDS: ATORVASTATIN 40 MG TAB PO SCH (20:28)
[2019-01-19] MEDS: PIPERACILLIN/TAZOBACTAM 3.375 GM in DEXTROSE 5% 100 ML IV SCH (05:38)
[2019-01-19 06:43] LABS: Albumin Level 2.2 gm/dl (3.4-5.0); BUN Creatinine Ratio 27.3 (10-20); Creatinine Clr Calc Pharmacy 48.6 ml/min; Est GFR (African American) 66.6; Est GFR (Non-African American) 57.5; Potassium 4.1 mmol/L (3.5-5.1)
[2019-01-19 06:45] LABS: Albumin Globulin Ratio 0.7 (0.9-2); Bilirubin,Total 1.1 mg/dl (0.2-1); Globulin 3.2 gm/dl (2.5-4.0); Total Protein 5.4 gm/dl (6.4-8.2)
[2019-01-19] MEDS: CARVEDILOL 12.5 MG TAB PO SCH ×2 (08:11→20:11)
[2019-01-19] MEDS: PANTOprazole 40 MG TAB PO SCH (08:11)
[2019-01-19] MEDS: APIXABAN 5 MG TABLET PO SCH ×2 (08:11→20:12)
[2019-01-19] MEDS: POTASSIUM CHLORIDE 20 MEQ TABCR PO SCH (08:11)
[2019-01-19] MEDS: CLOPIDOGREL BISULFATE 75 MG TAB PO SCH (08:11)
[2019-01-19] MEDS: BUDESONIDE/FORMOTEROL FUMARATE 160/4.5 60 PUFFS/INHALER INH SCH ×2 (08:11→20:12)
--- NOTE | 2019-01-19 09:01 | Hospitalist Progress Note ---
Date of Service January 19, 2019 Assessment & Plan (1) Syncope: Found on floor with no recollection of preceding events. Significant arrhythmia cannot be ruled out. - cardiology consulted, strong chance this could be arrhythmia, also with evidence of possible small cardiac event - continue to monitor for arrhythmias, still need to determine if he would need pacer to prevent bradycardia - trop trending down on monitor he will drop into 30's at times will need to discuss further with EP specialists today (2) Elevated troponin: likely a small NSTEMI with troponin of 5.9 on admission, trending down no chest pain or pressure however, he has new wall motion abnormality on echo will determine stress test vs cath vs no further testing, Dr. Hernandez to see sometime today, will touch base with him (3) DELMI (acute kidney injury): Baseline Cr ~1.0-1.2. Cr was 1.9 on admission. improved with IV fluids, Cr down to 1.1 today, making adequate urine CPK level is normal, could have been elevated on admission, was not tested will resume Bumex today since Cr is back to 1.1 (4) Acute UTI: UA on 01/16 indicated infection. - Follow urine culture -- Proteus, sensitive to Ampicillin change Zosyn to Augmentin, complete at least 10 days (5) Diastolic CHF: Echo on 01/16 showed EF 50-55%. On admission, he appeared hypovolemic and received IV fluids. None further given his history. appears slightly hypervolemic today with some edema in legs, no rales in lungs on exam c/o dyspnea on exertion Resume Bumex 2mg PO qAM this morning, follow output (6) Abnormal finding on radiology exam: CT a/p on 01/16 showed "Cystic lesions are present within the proximal femurs with a nonaggressive appearance." Unclear significance. - If his bilateral hip pain doesn't improve, would consider dedicated CT of hips. - X-rays of the hips on 01/16 did not show any abnormalities CTA chest on 01/16 showed "2 cm right middle lobe opacity statistically representing round atelectasis. A 3 month follow-up chest CT should be considered." - Follow up as outpatient (7) Atrial flutter: In 3:1 atrial flutter on EKG on admission. - Continue apixaban - Continue Coreg (8) COPD (chronic obstructive pulmonary disease): Breathing is presently at baseline, no wheezing on exam - Continue home inhalers - DuoNebs PRN (9) DVT prophylaxis: On apixaban Subjective still doing well, no syncope while here says that he gets short of breath on exertion, just walking across the room which is new for him reviewed I/O and meds, have been holding Bumex since admission due to renal failure, resume Bumex this AM still eating well, moving bowels, urinating well awaiting cardiology input on invasive testing for CAD and whether or not he would need a pacemaker reviewed labs, Cr is 1.1 and electrolytes stable reviewed urine culture, Proteus, sensitive to Ampicillin blood culture with Coag neg staph, one set, likely just a contaminant Review of Systems Review of Systems: All systems reviewed & are unremarkable except as noted in HPI & below Respiratory: + dyspnea on exertion; no cough, no dyspnea, no sputum production and no wheezing Cardiovascular: + edema (trace bilaterally); no chest pain Musculoskeletal: + joint pain (hip pain, mild, better today) Physical Exam Constitutional: WD/WN, vitals as above Eyes: PERRL, conjunctivae normal, anicteric sclerae ENMT: external ear and nose normal, oropharynx normal Neck: trachea midline, no thyromegaly Respiratory: normal respiratory effort, lungs clear to auscultation Cardiovascular: Rate/Rhythm: regular rate and regular rhythm Heart Sounds: no murmur Vessels: no JVD Extremities: normal capillary refill and + edema (trace bilateraly ankles) Gastrointestinal (Abdomen): normal bowel sounds, soft, nontender, no hepatosplenomegaly Musculoskeletal: no cyanosis or clubbing, extremities motor strength 5/5 Skin: no rashes, warm and dry Neurologic: patellar DTR's 2+ bilat, sensation intact and PERRL, EOMI, accommodation nl, no face palsy, no dysarthria Psychiatric: A+Ox3, euthymic affect Lymphatic: no cervical or axillary lymphadenopathy Results & Data Vital Signs (Past 12 Hours) Vital Signs Temp Pulse Pulse Resp BP Pulse Ox 01/19/19 07:15 36.5 C 58 L 16 110/68 98 01/19/19 04:27 36.4 C L 58 L 20 111/55 L 98 01/19/19 00:00 58 L 01/18/19 23:35 36.6 C 58 L 20 107/58 L 98 Laboratory Results Laboratory Results - last 24 hr 01/19/19 05:58 Sodium 140 Potassium 4.1 Chloride 108 H Carbon Dioxide 26 Anion Gap 6.0 BUN 31 H Creatinine 1.14 Est Cr Clr Drug Dosing 48.6 Est GFR ( Amer) 66.6 Est GFR (Non-Af Amer) 57.5 BUN/Creatinine Ratio 27.3 H Glucose 80 Calcium 8.0 L Total Bilirubin 1.1 H AST 81 H ALT 41 Alkaline Phosphatase 81 Total Creatine Kinase 298 Total Protein 5.4 L Albumin 2.2 L Globulin 3.2 Albumin/Globulin Ratio 0.7 L Medications Administered Current Inpatient Medications Acetaminophen (Tylenol) 650 mg PO Q4H PRN PRN Reason: Pain Stop: 02/16/19 09:56 Last Admin: 01/17/19 11:07 Dose: 650 mg Documented by: Albuterol (Duoneb) 3 ml NEB BIDR PRN PRN Reason: Wheezing Stop: 02/17/19 13:22 Amoxicillin/Clavulanate Potassium (Augmentin 875mg) 1 tab PO BIDM [facility] Stop: 01/29/19 16:59 Apixaban (Eliquis) 5 mg PO BID [facility] Stop: 02/16/19 08:59 Last Admin: 01/19/19 08:11 Dose: 5 mg Documented by: Atorvastatin Calcium (Lipitor) 40 mg PO QPM [facility] Stop: 02/16/19 20:59 Last Admin: 01/18/19 20:28 Dose: 40 mg Documented by: Budesonide/Formoterol Fumarate (Symbicort 160mcg/4.5mcg) 1 puffs INH BID [facility] Stop: 02/16/19 08:59 Last Admin: 01/19/19 08:11 Dose: 1 puffs Documented by: Bumetanide (Bumex) 2 mg PO QAM [facility] Stop: 02/18/19 08:59 Carvedilol (Coreg) 12.5 mg PO BID [facility] Stop: 02/16/19 08:59 Last Admin: 01/19/19 08:11 Dose: 12.5 mg Documented by: Clopidogrel Bisulfate (Plavix) 75 mg PO QAM [facility] Stop: 02/16/19 08:59 Last Admin: 01/19/19 08:11 Dose: 75 mg Documented by: Finasteride (Proscar) 5 mg PO QPM [facility] Stop: 02/16/19 20:59 Last Admin: 01/18/19 20:27 Dose: 5 mg Documented by: Miscellaneous Information (Consult) 1 ea N/A UD PRN PRN Reason: Consult Stop: 02/15/19 23:19 Nitroglycerin (Nitrostat) 0.4 mg SL UD [facility] Stop: 02/16/19 00:50 Pantoprazole Sodium (Protonix) 40 mg PO QAM [facility] Stop: 02/16/19 08:59 Last Admin: 01/19/19 08:11 Dose: 40 mg Documented by: Potassium Chloride (Klor-Con M20) 20 meq PO QAM [facility] Stop: 02/16/19 08:59 Last Admin: 01/19/19 08:11 Dose: 20 meq Documented by: Tamsulosin HCl (Flomax) 0.4 mg PO QPM [facility] Stop: 02/16/19 20:59 Last Admin: 01/18/19 20:27 Dose: 0.4 mg Documented by: PG Care Time/CCT Total # of Minutes Spent Total Time Spent with Patient: Total time spent is greater than 50% in coordination of care (as documented) at patient's floor/unit and/or counseling patient: (1) Syncope Syncope type: unspecified Qualified Code(s): R55 - Syncope and collapse (2) COPD (chronic obstructive pulmonary disease) COPD type: unspecified COPD Qualified Code(s): J44.9 - Chronic obstructive pulmonary disease, unspecified
[2019-01-19] MEDS: BUMETANIDE 1 MG TAB PO SCH (10:44)
[2019-01-19] MEDS: ALBUT/IPRATROP 3MG/0.5MG NEB 3 ML VIAL INH SCH ×2 (14:20→14:35)
[2019-01-19] MEDS: AMOXICILLIN/CLAVULANATE 875 MG TAB PO SCH (16:59)
--- NOTE | 2019-01-19 18:37 | Cardiology Progress Note ---
Date of Service January 19, 2019 Assessment & Plan (1) Syncope: 2. NSTEMI 3. New regional wall motion abnormality 4. Acute on chronic diastolic heart failure 5. CAD post 3v CABG 1999 6. Persistent atrial flutter 7. History of mitral valve repair 8. DELMI 9. UTI Chest pain free, troponin peaked, hemodynamically stable. Persistent AF but no significant darrius/tachyarrhythmias on telemetry over last 24 hrs. On exam well perfused, minimal residual congestion. -- Plan to further risk stratify with nuclear spect tomorrow. Please keep NPO after midnight -- No indication for PPM, or EP study at this time. -- Agree with restarting maintenance bumex -- continue apixaban, coreg -- continue clopidogrel, statin Subjective Feeling well today. No chest pain, shortness of breath, palpitations or presyncopal symptoms. Tele reviewed - persistent aflutter, lowest in the 40s. no tachyarrhythmias. Review of Systems Review of Systems: All systems reviewed & are unremarkable except as noted in HPI & below Physical Exam Physical Exam: General: Comfortable, no acute distress HEENT: Sclerae anicteric, mucous membranes moist Lungs: Clear to auscultation bilaterally, no rhonchi or wheezes Cardiac: Regular regular, no murmurs Abdomen: Soft, nontender, nondistended, positive bowel sounds. Extremities: Warm, well perfused, no edema. Skin: No rashes or lesions. Neuro: Nonfocal Psych: Alert oriented Results & Data Vital Signs (Past 12 Hours) Vital Signs Temp Pulse Pulse Resp BP Pulse Ox 01/19/19 16:01 36.8 C 66 18 121/69 96 01/19/19 16:00 58 L 01/19/19 12:11 36.6 C 63 16 115/62 100 01/19/19 10:12 57 L 01/19/19 07:15 36.5 C 58 L 16 110/68 98 PG Care Time/CCT Total # of Minutes Spent Total Time Spent with Patient: Total time spent is greater than 50% in coordination of care (as documented) at patient's floor/unit and/or counseling patient: (1) Syncope Syncope type: unspecified Qualified Code(s): R55 - Syncope and collapse
[2019-01-19] MEDS: TAMSULOSIN HCL 0.4 MG CAP PO SCH (20:11)
[2019-01-19] MEDS: FINASTERIDE 5 MG TAB PO SCH (20:12)
[2019-01-19] MEDS: ATORVASTATIN 40 MG TAB PO SCH (20:12)
[2019-01-20 05:59] LABS: Hematocrit (blood only) 35.4 % (42-52); Hemoglobin 11.4 g/dL (14.0-18.0); Mean Corpuscular Hgb Conc 32.2 g/dL (32-36); Mean Corpuscular Volume 84.1 fL (80-100); Mean Platelet Volume 9.4 fL (7.4-10.4); Platelet Count 174 K/uL (130-400); RDW Coefficient of Variation 15.1 % (11.5-14.5); RDW Standard Deviation 46.9 fL (36.4-46.3); Red Blood Count 4.21 M/uL (4.7-6.1); White Blood Count 5.75 K/uL (4.8-10.8)
[2019-01-20 06:35] LABS: BUN Creatinine Ratio 28.6 (10-20); Calcium 8.1 mg/dl (8.5-10.1); Est GFR (Non-African American) 68.2; Potassium 4.1 mmol/L (3.5-5.1)
[2019-01-20] MEDS: AMOXICILLIN/CLAVULANATE 875 MG TAB PO SCH ×2 (08:25→16:55)
[2019-01-20] MEDS: CLOPIDOGREL BISULFATE 75 MG TAB PO SCH (08:26)
[2019-01-20] MEDS: PANTOprazole 40 MG TAB PO SCH (08:26)
[2019-01-20] MEDS: POTASSIUM CHLORIDE 20 MEQ TABCR PO SCH (08:26)
[2019-01-20] MEDS: CARVEDILOL 12.5 MG TAB PO SCH (08:26)
[2019-01-20] MEDS: BUDESONIDE/FORMOTEROL FUMARATE 160/4.5 60 PUFFS/INHALER INH SCH ×2 (08:26→20:43)
[2019-01-20] MEDS: APIXABAN 5 MG TABLET PO SCH ×2 (09:00→20:42)
[2019-01-20] MEDS: BUMETANIDE 1 MG TAB PO SCH (09:00)
[2019-01-20] MEDS ORDERED: REGADENOSON 0.4 MG/5 ML SYR IV ONE (10:10)
--- NOTE | 2019-01-20 13:19 | Hospitalist Progress Note ---
Date of Service January 20, 2019 Assessment & Plan (1) Syncope: Found on floor with no recollection of preceding events. Significant arrhythmia cannot be ruled out. daughter says that he was likely down about 8 hours - cardiology consulted, strong chance this could be arrhythmia, also with e vidence of possible small cardiac event - continue to monitor for arrhythmias, at this time no clear indication for pacer - trop trending down (2) Elevated troponin: likely a small NSTEMI with troponin of 5.9 on admission, trending down no chest pain or pressure however, he has new wall motion abnormality on echo Nuclear perfusions stress test done today, will follow up results and discuss with Dr. Hernandez (3) DELIM (acute kidney injury): Baseline Cr ~1.0-1.2. Cr was 1.9 on admission. improved with IV fluids, Cr down to 0.99 today, making adequate urine CPK level is normal, could have been elevated on admission, was not tested responded well to Bumex, 2000mL negative yesterday (4) Acute UTI: UA on 01/16 indicated infection. - Follow urine culture -- Proteus, sensitive to Ampicillin change Zosyn to Augmentin, complete at least 10 days (5) Diastolic CHF: Echo on 01/16 showed EF 50-55%. On admission, he appeared hypovolemic and received IV fluids. None further given his history. appeared slightly hypervolemic on 01/19 with some edema in legs, no rales in lungs on exam c/o dyspnea on exertion Resumed Bumex 2mg PO on 01/19 with brisk response and diuresis, negative 2000mL continue Bumex, examines euvolemic today will decrease dose of Coreg to 6.25mg BID (6) Abnormal finding on radiology exam: CT a/p on 01/16 showed "Cystic lesions are present within the proximal femurs with a nonaggressive appearance." Unclear significance. - If his bilateral hip pain doesn't improve, would consider dedicated CT of hips. - X-rays of the hips on 01/16 did not show any abnormalities CTA chest on 01/16 showed "2 cm right middle lobe opacity statistically representing round atelectasis. A 3 month follow-up chest CT should be considered." - Follow up as outpatient (7) Atrial flutter: In 3:1 atrial flutter on EKG on admission. - Continue apixaban - Continue Coreg (8) COPD (chronic obstructive pulmonary disease): Breathing is presently at baseline, no wheezing on exam - Continue home inhalers - DuoNebs PRN (9) DVT prophylaxis: On apixaban Subjective patient seen after nuclear stress test this morning he said that he felt a little dizzy at the end of the test but otherwise did well no chest pain or pressure, no dyspnea the KOH[place]ER that he was experiencing yesterday resolved, reviewed I/O, he was negative 2000mL yesterday with Bumex he is eating well updated his daughter at the bedside reviewed labs, Cr is 0.99 and K is 4.1, CBC stable his daughter feels that maybe he is on too many medications she mentioned that his blood pressure has been low/low normal at times he has lost 25 lbs in the past few months on his medications, specifically the Bumex will follow up on results of the stress test Review of Systems Review of Systems: All systems reviewed & are unremarkable except as noted in HPI & below Respiratory: no cough, no dyspnea, no dyspnea on exertion, no sputum production and no wheezing Cardiovascular: no chest pain and no edema Musculoskeletal: + joint pain (hip pain, mild, better today) Physical Exam Constitutional: WD/WN, vitals as above Eyes: PERRL, conjunctivae normal, anicteric sclerae ENMT: external ear and nose normal, oropharynx normal Neck: trachea midline, no thyromegaly Respiratory: normal respiratory effort, lungs clear to auscultation Cardiovascular: RRR, no murmur, no edema Rate/Rhythm: regular rate and regular rhythm Heart Sounds: no murmur Vessels: no JVD Extremities: normal capillary refill; no edema Gastrointestinal (Abdomen): normal bowel sounds, soft, nontender, no hepatosplenomegaly Musculoskeletal: no cyanosis or clubbing, extremities motor strength 5/5 Skin: no rashes, warm and dry Neurologic: patellar DTR's 2+ bilat, sensation intact and PERRL, EOMI, accommodation nl, no face palsy, no dysarthria Psychiatric: A+Ox3, euthymic affect Lymphatic: no cervical or axillary lymphadenopathy Results & Data Vital Signs (Past 12 Hours) Vital Signs Temp Pulse Pulse Resp BP Pulse Ox 01/20/19 12:47 36.4 C L 01/20/19 12:42 72 19 139/77 97 01/20/19 07:30 36.3 C L 58 L 18 144/80 H 100 01/20/19 03:54 36.4 C L 55 L 16 153/79 H 95 Laboratory Results Laboratory Results - last 24 hr 01/20/19 01/20/19 05:35 05:35 WBC 5.75 RBC 4.21 L Hgb 11.4 L Hct 35.4 L MCV 84.1 MCH 27.1 MCHC 32.2 RDW Std Deviation 46.9 H RDW Coeff of Michelle 15.1 H Plt Count 174 MPV 9.4 Sodium 142 Potassium 4.1 Chloride 109 H Carbon Dioxide 28 Anion Gap 5.0 BUN 28 H Creatinine 0.99 Est Cr Clr Drug Dosing 56.0 Est GFR ( Amer) 79.0 Est GFR (Non-Af Amer) 68.2 BUN/Creatinine Ratio 28.6 H Glucose 75 Calcium 8.1 L Medications Administered Current Inpatient Medications Acetaminophen (Tylenol) 650 mg PO Q4H PRN PRN Reason: Pain Stop: 02/16/19 09:56 Last Admin: 01/17/19 11:07 Dose: 650 mg Documented by: Albuterol (Duoneb) 3 ml NEB BIDR PRN PRN Reason: Wheezing Stop: 02/17/19 13:22 Amoxicillin/Clavulanate Potassium (Augmentin 875mg) 1 tab PO BIDM [facility] Stop: 01/29/19 16:59 Last Admin: 01/20/19 08:25 Dose: 1 tab Documented by: Apixaban (Eliquis) 5 mg PO BID [facility] Stop: 02/16/19 08:59 Last Admin: 01/19/19 20:12 Dose: 5 mg Documented by: Atorvastatin Calcium (Lipitor) 40 mg PO QPM [facility] Stop: 02/16/19 20:59 Last Admin: 01/19/19 20:12 Dose: 40 mg Documented by: Budesonide/Formoterol Fumarate (Symbicort 160mcg/4.5mcg) 1 puffs INH BID [facility] Stop: 02/16/19 08:59 Last Admin: 01/20/19 08:26 Dose: 1 puffs Documented by: Bumetanide (Bumex) 2 mg PO QAM [facility] Stop: 02/18/19 08:59 Last Admin: 01/20/19 09:00 Dose: Not Given Documented by: Carvedilol (Coreg) 12.5 mg PO BID [facility] Stop: 02/16/19 08:59 Last Admin: 01/20/19 08:26 Dose: 12.5 mg Documented by: Clopidogrel Bisulfate (Plavix) 75 mg PO QAM [facility] Stop: 02/16/19 08:59 Last Admin: 01/20/19 08:26 Dose: 75 mg Documented by: Finasteride (Proscar) 5 mg PO QPM [facility] Stop: 02/16/19 20:59 Last Admin: 01/19/19 20:12 Dose: 5 mg Documented by: Nitroglycerin (Nitrostat) 0.4 mg SL [facility] [place]: 02/16/19 00:50 Pantoprazole Sodium (Protonix) 40 mg PO QAM [facility] Stop: 02/16/19 08:59 Last Admin: 01/20/19 08:26 Dose: 40 mg Documented by: Potassium Chloride (Klor-Con M20) 20 meq PO QAM [facility] Stop: 02/16/19 08:59 Last Admin: 01/20/19 08:26 Dose: 20 meq Documented by: Tamsulosin HCl (Flomax) 0.4 mg PO QPM [facility] Stop: 02/16/19 20:59 Last Admin: 01/19/19 20:11 Dose: 0.4 mg Documented by: PG Care Time/CCT Total # of Minutes Spent Total Time Spent with Patient: Total time spent is greater than 50% in coordination of care (as documented) at patient's floor/unit and/or counseling patient: (1) Syncope Syncope type: unspecified Qualified Code(s): R55 - Syncope and collapse (2) COPD (chronic obstructive pulmonary disease) COPD type: unspecified COPD Qualified Code(s): J44.9 - Chronic obstructive pulmonary disease, unspecified
--- NOTE | 2019-01-20 15:47 | Myocardial Perfusion Study ---
Date of Service January 20, 2019 Myocardial Perfusion Study [facility] Myocardial Perfusion Study Report ONE DAY NUCLEAR MEDICINE LEXISCAN TECHNETIUM 99M MYOCARDIAL PERFUSION SCAN Indication: NSTEMI, new regional wall motion abnormality. Baseline ECG: Atrial flutter with ventricular rate of 66, subtle inferolateral T wave inversions. Stress ECG: No significant Lexiscan induced ST changes.. Occasional PVCs. HR jaswinder from 64 to 77 representing 57 % MPHR. SBP 142/80. With Lexiscan had chest pain, shortness of breath resolved with caffeine. Technique: For the stress portion of the study 32.7 mCi of Technetium 99m Cardiolite IV was injected at 11: 40 on 01/20/2019. 30 minutes following the injection, imaging of the heart was performed in multiple projections. For the rest portion of the study, 10.6 mCi of Technetium 99m Cardiolite was injected IV at 9: 30. One hour following the injection, imaging of the hear was performed in the same projections. Findings: Rotating raw images were reviewed in detail. Potential sources of attenuation include minimal gut uptake impacting the inferior imaging border of the heart. No significant extracardiac pathologic uptake. Short axis, vertical long axis and horizontal long axis images were reviewed in detail. No visual TID. There was a moderate size, severe, largely reversible base to mid inferior perfusion defect (summed difference score of 5). Subtle anteroapical defect more notable on stress than rest. Normal LV size. EDV 92 ml. Calculated EF 41 %. Severe inferior wall hypokinesis. Paradoxical septal motion consistent with postoperative state. SUMMARY: 1. Abnormal myocardial perfusion study consistent with a intermediate amount Lexiscan induced inferior ischemia. 2. Normal LV size mild LV dysfunction. EF 41% with inferior hypokinesis. 3. Non-diagnostic stress ECG due to inability to reach target HR with Lexiscan.
--- NOTE | 2019-01-20 16:52 | Cardiology Progress Note ---
Date of Service January 20, 2019 Assessment & Plan (1) Syncope: 2. NSTEMI 3. New regional wall motion abnormality 4. Acute on chronic diastolic heart failure 5. CAD post 3v CABG 1999 6. Persistent atrial flutter 7. History of mitral valve repair 8. DELMI 9. UTI Reviewed results of stress test today with patient and daughter. Does have evidence of an intermediate amount of inferior ischemia. We discussed options including cardiac catheterization. At this point patient would prefer to manage medically. Limited options for additional antianginal therapy with patient's blood pressure. Consideration given to starting a long-acting nitrate but as patient largely without anginal symptoms we will plan to continue on beta-ivy alone. Do feel most likely explanation for patient's syncopal episode due to hypotension, hypovolemia, dehydration the setting of prior diuretics. In November had previously been discussed about reducing his Bumex from 2 mg a day down to 1 mg a day. I agree with diuretic reduction particularly in the setting of his robust response to home diuretic yesterday. Going forward: Agree with reducing carvedilol to 6.25 mg twice daily Would reduce Bumex to 1 mg every other day. Continue daily weights at home and can increase to daily Bumex as needed for weight gain. No indication for pacemaker/EPS study at this time Continue Eliquis, clopidogrel, atorvastatin Will need close cardiology follow-up on discharge. At this time no plan for cardiac catheterization but if recurrent symptoms in the future patient would be willing to pursue. Subjective Feeling well today. Denies any chest pain. Still requiring oxygen and short of breath with walking around his room. Telemetry reviewedatrial flutter very brief periods down to the high 30s. Occasional PVCs. No other significant arrhythmia. -2 L yesterday after restarted on Bumex 2 mg daily. Review of Systems Review of Systems: All systems reviewed & are unremarkable except as noted in HPI & below Physical Exam Physical Exam: General: Comfortable, no acute distress HEENT: Sclerae anicteric, mucous membranes moist Lungs: Clear to auscultation bilaterally Cardiac: Irregularly irregular Abdomen: Soft, nontender, nondistended, positive bowel sounds. Extremities: Warm, well perfused, no edema. Skin: No rashes or lesions. Neuro: Nonfocal Psych: Alert orient x3, normal affect and mood Results & Data Vital Signs (Past 12 Hours) Vital Signs Temp Pulse Pulse Pulse Resp BP Pulse Ox 01/20/19 16:00 77 01/20/19 15:27 36.3 C L 58 L 16 138/69 98 01/20/19 12:47 36.4 C L 01/20/19 12:42 72 19 139/77 97 01/20/19 07:30 36.3 C L 58 L 18 144/80 H 100 PG Care Time/CCT Total # of Minutes Spent Total Time Spent with Patient: Total time spent is greater than 50% in coordination of care (as documented) at patient's floor/unit and/or counseling patient: (1) Syncope Syncope type: unspecified Qualified Code(s): R55 - Syncope and collapse
[2019-01-20] MEDS: CARVEDILOL 6.25 MG TAB PO SCH (20:42)
[2019-01-20] MEDS: FINASTERIDE 5 MG TAB PO SCH (20:42)
[2019-01-20] MEDS: TAMSULOSIN HCL 0.4 MG CAP PO SCH (20:42)
[2019-01-20] MEDS: ATORVASTATIN 40 MG TAB PO SCH (20:42)
[2019-01-21 06:57] LABS: BUN Creatinine Ratio 25.6 (10-20); Calcium 8.3 mg/dl (8.5-10.1); Creatinine Clr Calc Pharmacy 62.3 ml/min; Est GFR (African American) 89.1; Est GFR (Non-African American) 76.9; Potassium 4.3 mmol/L (3.5-5.1)
[2019-01-21] MEDS: AMOXICILLIN/CLAVULANATE 875 MG TAB PO SCH ×2 (08:05→16:46)
[2019-01-21] MEDS: BUMETANIDE 1 MG TAB PO SCH (08:05)
[2019-01-21] MEDS: CLOPIDOGREL BISULFATE 75 MG TAB PO SCH (08:05)
[2019-01-21] MEDS: APIXABAN 5 MG TABLET PO SCH ×2 (08:05→21:51)
[2019-01-21] MEDS: PANTOprazole 40 MG TAB PO SCH (08:05)
[2019-01-21] MEDS: POTASSIUM CHLORIDE 20 MEQ TABCR PO SCH (08:06)
[2019-01-21] MEDS: BUDESONIDE/FORMOTEROL FUMARATE 160/4.5 60 PUFFS/INHALER INH SCH ×2 (08:06→21:55)
[2019-01-21] MEDS: CARVEDILOL 6.25 MG TAB PO SCH ×2 (08:06→21:53)
--- NOTE | 2019-01-21 10:05 | Cardiology Progress Note ---
Date of Service January 21, 2019 Assessment & Plan (1) Syncope: 2. NSTEMI 3. New regional wall motion abnormality 4. Acute on chronic diastolic heart failure 5. CAD post 3v CABG 1999 6. Persistent atrial flutter 7. History of mitral valve repair 8. DELMI 9. UTI Patient feeling well. Hemodynamically and electrically stable. Well-perfused without significant congestion on exam. Renal function improved. From a cardiac standpoint okay for discharge today. Home on Bumex 1 mg every other day Continue daily weights and follow-up with heart failure clinic next week If weight trending up increase Bumex to daily Continue carvedilol 6.25 twice daily No indication for pacemaker/EPS study at this time Continue Eliquis, clopidogrel, atorvastatin Follow-up with me in 3 to 4 weeks. At this time no plan for cardiac catheterization but if recurrent symptoms in the future patient would be willing to pursue. Subjective Feeling well today. Denies any chest pain. Off oxygen, sitting up in chair. . Telemetry reviewedatrial flutter, no significant bradycardia Occasional PVCs. No other significant arrhythmia. - 400 yesterday Review of Systems Review of Systems: All systems reviewed & are unremarkable except as noted in HPI & below Physical Exam Physical Exam: General: Comfortable, no acute distress HEENT: Sclerae anicteric, mucous membranes moist Lungs: Clear to auscultation bilaterally, no rhonchi or wheezes Cardiac: Regular rate and rhythm, 2 out of 6 systolic ejection murmur Abdomen: Soft, nontender, nondistended, positive bowel sounds. Extremities: Warm, well perfused, trace lower extremity edema Skin: No rashes or lesions. Neuro: Nonfocal Psych: Alert orient x3, normal affect and mood Results & Data Vital Signs (Past 12 Hours) Vital Signs Temp Pulse Pulse Resp BP Pulse Ox 01/21/19 08:37 36.4 C L 77 22 122/65 95 01/21/19 03:21 36.7 C 69 18 129/84 98 01/21/19 00:00 37.0 C 67 17 107/60 94 01/20/19 22:20 68 PG Care Time/CCT Total # of Minutes Spent Total Time Spent with Patient: Total time spent is greater than 50% in coordination of care (as documented) at patient's floor/unit and/or counseling patient: (1) Syncope Syncope type: unspecified Qualified Code(s): R55 - Syncope and collapse
--- NOTE | 2019-01-21 11:28 | Hospitalist Progress Note ---
Date of Service January 21, 2019 Assessment & Plan (1) Syncope: Found on floor with no recollection of preceding events. Significant arrhythmia cannot be ruled out. daughter says that he was likely down about 8 hours - cardiology consulted, strong chance this could be arrhythmia, also with e vidence of possible small cardiac event - continue to monitor for arrhythmias, at this time no clear indication for pacer - trop trending down will transfer to medical floor today (2) Elevated troponin: likely a small NSTEMI with troponin of 5.9 on admission, trending down no chest pain or pressure however, he has new wall motion abnormality on echo Nuclear perfusions stress test done on 01/20, it did show a small area of ischemia Dr. Hernandez discussed with patient and his daughter, elected to not have catheterization given age, will treat medically (3) DELMI (acute kidney injury): Baseline Cr ~1.0-1.2. Cr was 1.9 on admission. improved with IV fluids, Cr down to baseline for several days CPK level was normal, could have been elevated on admission, was not tested responded well to Bumex, negative 2500mL since it was resumed (4) Acute UTI: UA on 01/16 indicated infection. - Follow urine culture -- Proteus, sensitive to Ampicillin change Zosyn to Augmentin, complete at least 10 days (5) Diastolic CHF: Echo on 01/16 showed EF 50-55%. On admission, he appeared hypovolemic and received IV fluids. None further given his history. appeared slightly hypervolemic on 01/19 with some edema in legs, no rales in verito gs on exam c/o dyspnea on exertion Resumed Bumex 2mg PO on 01/19 with brisk response and diuresis, negative 2500mL since it was resumed Dr. Hernandez recommends decreasing the Bumex to 1mg every other day on discharge also, the Coreg has been decreased to 6.25mg due to slow heart rates at times (6) Abnormal finding on radiology exam: CT a/p on 01/16 showed "Cystic lesions are present within the proximal femurs with a nonaggressive appearance." Unclear significance. - If his bilateral hip pain doesn't improve, would consider dedicated CT of hips. - X-rays of the hips on 01/16 did not show any abnormalities CTA chest on 01/16 showed "2 cm right middle lobe opacity statistically representing round atelectasis. A 3 month follow-up chest CT should be c onsidered." - Follow up as outpatient (7) Atrial flutter: In 3:1 atrial flutter on EKG on admission. - Continue apixaban - Continue Coreg but at lower dose of 6.25mg BID (8) COPD (chronic obstructive pulmonary disease): Breathing is presently at baseline, no wheezing on exam - Continue home inhalers - DuoNebs PRN (9) DVT prophylaxis: On apixaban Plan: transfer to medical floor today, plan for d/c tomorrow morning Subjective patient feeling great today, ambulated in the hallway with therapy, did well, wants to go home discussed the case with Dr. Hernandez, he agrees with being medically stable for discharge recommended decreasing Bumex to 1mg every other day, discussed with patient unfortunately the patient's daughter unable to get him today, will d/c tomorrow AM reviewed labs, Cr and electrolytes stable Review of Systems Review of Systems: All systems reviewed & are unremarkable except as noted in HPI & below Constitutional: no fever, no fatigue and no weakness Respiratory: no cough, no dyspnea and no dyspnea on exertion Cardiovascular: no chest pain and no edema Gastrointestinal: no abdominal pain, no nausea, no vomiting, no constipation and no diarrhea/loose stools Musculoskeletal: + joint pain (hip pain, mild, better today) Physical Exam Constitutional: WD/WN, vitals as above Eyes: PERRL, conjunctivae normal, anicteric sclerae ENMT: external ear and nose normal, oropharynx normal Neck: trachea midline, no thyromegaly Respiratory: normal respiratory effort, lungs clear to auscultation Cardiovascular: RRR, no murmur, no edema Rate/Rhythm: regular rate and regular rhythm Heart Sounds: no murmur Vessels: no JVD Extremities: normal capillary refill; no edema Gastrointestinal (Abdomen): normal bowel sounds, soft, nontender, no hepatosplenomegaly Musculoskeletal: no cyanosis or clubbing, extremities motor strength 5/5 Skin: no rashes, warm and dry Neurologic: patellar DTR's 2+ bilat, sensation intact and PERRL, EOMI, accommodation nl, no face palsy, no dysarthria Psychiatric: A+Ox3, euthymic affect Lymphatic: no cervical or axillary lymphadenopathy Results & Data Vital Signs (Past 12 Hours) Vital Signs Temp Pulse Pulse Resp BP Pulse Ox 01/21/19 11:22 36.4 C L 57 L 18 135/67 97 01/21/19 08:37 36.4 C L 77 22 122/65 95 01/21/19 08:00 60 01/21/19 03:21 36.7 C 69 18 129/84 98 01/21/19 00:00 37.0 C 67 17 107/60 94 Laboratory Results Laboratory Results - last 24 hr 01/21/19 05:47 Sodium 142 Potassium 4.3 Chloride 109 H Carbon Dioxide 27 Anion Gap 6.0 BUN 23 H Creatinine 0.89 Est Cr Clr Drug Dosing 62.3 Est GFR ( Amer) 89.1 Est GFR (Non-Af Amer) 76.9 BUN/Creatinine Ratio 25.6 H Glucose 74 Calcium 8.3 L Medications Administered Current Inpatient Medications Acetaminophen (Tylenol) 650 mg PO Q4H PRN PRN Reason: Pain Stop: 02/16/19 09:56 Last Admin: 01/17/19 11:07 Dose: 650 mg Documented by: Albuterol (Duoneb) 3 ml NEB BIDR PRN PRN Reason: Wheezing Stop: 02/17/19 13:22 Amoxicillin/Clavulanate Potassium (Augmentin 875mg) 1 tab PO BIDM [facility] Stop: 01/29/19 16:59 Last Admin: 01/21/19 08:05 Dose: 1 tab Documented by: Apixaban (Eliquis) 5 mg PO BID [facility] Stop: 02/16/19 08:59 Last Admin: 01/21/19 08:05 Dose: 5 mg Documented by: Atorvastatin Calcium (Lipitor) 40 mg PO QPM [facility] Stop: 02/16/19 20:59 Last Admin: 01/20/19 20:42 Dose: 40 mg Documented by: Budesonide/Formoterol Fumarate (Symbicort 160mcg/4.5mcg) 1 puffs INH BID [facility] Stop: 02/16/19 08:59 Last Admin: 01/21/19 08:06 Dose: 1 puffs Documented by: Carvedilol (Coreg) 6.25 mg PO BID [facility] Stop: 02/19/19 20:59 Last Admin: 01/21/19 08:06 Dose: 6.25 mg Documented by: Clopidogrel Bisulfate (Plavix) 75 mg PO QAM [facility] Stop: 02/16/19 08:59 Last Admin: 01/21/19 08:05 Dose: 75 mg Documented by: Finasteride (Proscar) 5 mg PO QPM [facility] Stop: 02/16/19 20:59 Last Admin: 01/20/19 20:42 Dose: 5 mg Documented by: Nitroglycerin (Nitrostat) 0.4 mg SL UD [facility] Stop: 02/16/19 00:50 Pantoprazole Sodium (Protonix) 40 mg PO QAM [facility] Stop: 02/16/19 08:59 Last Admin: 01/21/19 08:05 Dose: 40 mg Documented by: Tamsulosin HCl (Flomax) 0.4 mg PO QPM [facility] Stop: 02/16/19 20:59 Last Admin: 01/20/19 20:42 Dose: 0.4 mg Documented by: PG Care Time/CCT Total # of Minutes Spent Total Time Spent with Patient: Total time spent is greater than 50% in coordination of care (as documented) at patient's floor/unit and/or counseling patient: (1) Syncope Syncope type: unspecified Qualified Code(s): R55 - Syncope and collapse (2) COPD (chronic obstructive pulmonary disease) COPD type: unspecified COPD Qualified Code(s): J44.9 - Chronic obstructive pulmonary disease, unspecified
[2019-01-21] MEDS: FINASTERIDE 5 MG TAB PO SCH (21:51)
[2019-01-21] MEDS: ATORVASTATIN 40 MG TAB PO SCH (21:51)
[2019-01-21] MEDS: TAMSULOSIN HCL 0.4 MG CAP PO SCH (21:52)
[2019-01-22] MEDS: CLOPIDOGREL BISULFATE 75 MG TAB PO SCH (08:08)
[2019-01-22] MEDS: CARVEDILOL 6.25 MG TAB PO SCH (08:08)
[2019-01-22] MEDS: BUDESONIDE/FORMOTEROL FUMARATE 160/4.5 60 PUFFS/INHALER INH SCH (08:09)
[2019-01-22] MEDS: AMOXICILLIN/CLAVULANATE 875 MG TAB PO SCH (08:09)
[2019-01-22] MEDS: PANTOprazole 40 MG TAB PO SCH (08:09)
[2019-01-22] MEDS: APIXABAN 5 MG TABLET PO SCH (08:09)
--- NOTE | 2019-01-22 09:09 | Heart Failure Progress Note ---
Date of Service January 21, 2019 Assessment & Plan (1) Diastolic CHF: Patient's syncopal episode was likely secondary to hypotension, hypovolemia, and dehydration in the setting of diuretic use. He responded well to IV fluids. His Bumex was reduced from 2 mg daily to 1 mg every other day. H e is instructed to continue daily standing weights at home. He was instructed to call for weight gain of 2+ lb overnight or 5+ lb in 1 week. He can increase his Bumex to daily for weight gain if needed. Continue to follow a low-sodium diet. Anticipate close follow-up with heart failure program upon discharge. Heart failure program follow-up scheduled for 01/29/2019 at 10:30 a.m. *Patient has requested all appointments and schedule be done through his daughter Radha- [phone] Subjective Mr. Mckinney has been referred to the heart failure program by his principal architectural firm, Dr. Hernandez. He is currently admitted due to an apparent syncopal episode. He was in 3-1 atrial flutter on admission and was demonstrating bradycardia with his atrial flutter while on telemetry. He carries a history of chronic diastolic congestive heart failure. He appeared hypovolemic on admission and was given IV fluids. Echocardiogram confirms normal left ventricular systolic function with EF 50-55%. He has severe hypokinesis of the proximal inferior wall and adjacent anteroseptum which is new since the previous study in 2018. He underwent nuclear stress test which demonstrated intermediate amount of inferior ischemia. Patient preferred medical management. The patient reports that he is feeling well. He is ambulating around his room at the time my visit. He was not requiring supplemental oxygen and denied any increased shortness of breath with exertion. Patient currently lives alone at his home in [place]. He is fairly independent with his ADLs and is able to maintain his home. He has a walker, cane, and a wheelchair available for assistance depending on where he is going. He is still able to drive himself. His daughter, Radha, lives locally in [place] and is is main support at this time. Results & Data Vital Signs (Past 12 Hours) Vital Signs Temp Pulse Resp BP Pulse Ox 01/22/19 07:38 97.5 F L 74 18 134/78 95 01/21/19 23:00 97.5 F L 56 L 18 107/61 95 : Syncope Qualifiers: Syncope type: unspecified Qualified Code(s): R55 - Syncope and collapse
--- NOTE | 2019-01-22 09:45 | Discharge Summary ---
Date of Service January 22, 2019 Admission HPI Per Admitting Provider 88 y/o M Hx CHF, CAD, HTN, HLD, paroxysmal flutter, COPD. Presents after he was found on the floor of his home by a family member. He did not know how he wound up there, or exactly how long he had been there. The pt complains of BL hip pain with ambulation only at the time of admission. He denies any CP, SOB, cough, nausea, vomiting, dysuria or fevers. One week ago he had a nose bleed, but otherwise, he states he has been in his normal state of health. Initial labs are notable for mild DELMI, leukocytosis, a + UA and a markedly elevated troponin. Troponin is chronically elevated but not to the same degree. A CT of the chest/abdomen/pelvis demonstrated BL pleural effusions which appear chronic, mucous plugging and either atelectasis or a RLL consolidation. Lucencies are seen in the femoral heads. An EKG demonstrated anterior inversions but was unchanged from a prior. PMH: 1) Diastolic, R heart CHF 2) HTN 3) HLD 4) Paroxysmal atrial flutter - Eliquis 5) COPD 6) CAD 7) NSVT 8) BPH 9) Sternotomy infection 10) Nonhealing foot ulcer requiring debridement 08/2018 11) PUD 12) Mitral stenosis 13) R pleural effusion 14) Chronic, mild troponin elevation Surgical: 1) Mitral vallve annuloplasty 2) CABG - 3V Social: Distant smoking history Lives alone Family: Father had heart disease Principal Diagnosis Syncope Discharge Exam Constitutional WD/WN, vitals as above Eyes PERRL, conjunctivae normal, anicteric sclerae ENMT external ear and nose normal, oropharynx normal Neck trachea midline, no thyromegaly Respiratory normal respiratory effort, lungs clear to auscultation Cardiovascular RRR, no murmur, no edema Rate/Rhythm: regular rate and regular rhythm Heart Sounds: no murmur Vessels: no JVD Extremities: normal capillary refill; no edema Gastrointestinal (Abdomen) normal bowel sounds, soft, nontender, no hepatosplenomegaly Musculoskeletal no cyanosis or clubbing, extremities motor strength 5/5 Skin no rashes, warm and dry Neurologic patellar DTR's 2+ bilat, sensation intact and PERRL, EOMI, accommodation nl, no face palsy, no dysarthria Psychiatric A+Ox3, euthymic affect Lymphatic no cervical or axillary lymphadenopathy Discharge Data Allergies Allergy/AdvReac Type Severity Reaction Status Date / Time aspirin AdvReac Intermediate GI Verified 01/16/19 22:19 ULCERATION- WHEN TAKEN WITH COUMADIN black pepper AdvReac Mild Verified 01/16/19 22:19 lisinopril AdvReac Mild Verified 01/16/19 22:19 Sulfa (Sulfonamide AdvReac Unknown "SULFA Verified 01/16/19 22:19 Antibiotics) DRUGS": HAS TOLERATED LASIX IN PAST Consultations 01/16/19 23:14 ED Decision to Admit Stat 01/17/19 09:37 Consult Cardiology Routine Ordered Studies 01/16/19 21:47 CT head/brain wo con Stat 01/16/19 21:57 CT cervical spine wo con Stat 01/16/19 23:04 CT angio chest PE protocol Stat 01/16/19 23:14 CT abd pelvis IV con only Stat Hospital Course (1) Syncope: Found on floor with no recollection of preceding events daughter says that he was likely down about 8 hours ultimately the most likely etiology was dehydration, over diuresis with Bumex he improved quickly with IV fluids while he had some bradycardia on the monitor, never had heart block or prolonged pauses never had tachyarrhythmias did have a minor NSTEMI around the same time, unsure how much this contributed to syncope doing well with therapy, cleared to return home (2) Elevated troponin: likely a small NSTEMI with troponin of 5.9 on admission, trended down no chest pain or pressure however, he had new wall motion abnormality on echo Nuclear perfusions stress test done on 01/20, it did show a small area of ischemia Dr. Hernandez discussed with patient and his daughter, elected to not have catheterization given age, will treat medically (3) DELMI (acute kidney injury): Baseline Cr ~1.0-1.2. Cr was 1.9 on admission. improved with IV fluids, Cr down to baseline for several days CPK level was normal, could have been elevated on admission, was not tested responded well to Bumex, negative 2500mL since it was resumed see below, will reduce Bumex dose on discharge to help prevent dehydration and further syncope (4) Acute UTI: UA on 01/16 indicated infection. - Follow urine culture -- Proteus, sensitive to Ampicillin change Zosyn to Augmentin, complete at least 10 days, four more days on discharge (5) Diastolic CHF: Echo on 01/16 showed EF 50-55%. On admission, he appeared hypovolemic and received IV fluids. None further given his history. appeared slightly hypervolemic on 01/19 with some edema in legs, no rales in lungs on exam c/o dyspnea on exertion Resumed Bumex 2mg PO on 01/19 with brisk response and diuresis, negative 2500mL since it was resumed Dr. Hernandez recommends decreasing the Bumex to 1mg every other day on discharge also, the Coreg has been decreased to 6.25mg due to slow heart rates at times follow up with the heart failure clinic on 01/29 CHF discharge instructions provided (6) Abnormal finding on radiology exam: CT a/p on 01/16 showed "Cystic lesions are present within the proximal femurs with a nonaggressive appearance." Unclear significance. - X-rays of the hips on 01/16 did not show any abnormalities CTA chest on 01/16 showed "2 cm right middle lobe opacity statistically representing round atelectasis. A 3 month follow-up chest CT should be considered." - Follow up as outpatient (7) Atrial flutter: In 3:1 atrial flutter on EKG on admission. - Continue apixaban - Continue Coreg but at lower dose of 6.25mg BID (8) COPD (chronic obstructive pulmonary disease): Breathing is presently at baseline, no wheezing on exam - Continue home inhalers - DuoNebs PRN (9) DVT prophylaxis: On apixaban Total Time Total Time Spent Total Time Spent (In Minutes): 37 minutes Total Time Includes: Examination of the Patient, Discharge Planning, Medication Reconciliation, Communication With Other Providers (Dr. Hernandez, Sugey HARRISON) and Other (discussion with patient's daughter at the bedside) Discharge Plan Discharge Items Patient Disposition: Home - Home Health Services Reason For Visit: UTI, SOB, TROPONIN ELEVATION Discharge Diagnosis: UTI small NSTEMI Syncope Acute kidney injury Condition: Good Discharge Goals: Improve disease control and Improve function Activity: Resume your previous activity Driving/Machine Use: Resume 3 days after discharge Non-emergency contact: Primary Care Provider and Carpenter Maintenance Call non-emergency contact if: you have any medication questions, your symptoms worsen and you have a fever Follow-up/Referrals: Illig,Sugey M., PA-C [Physician Drapery Installer] - 01/29/19 10:30 am (Congestive Heart Failure Program Appointment Information Early follow up is essential to managing your heart failure. An appointment has been scheduled for you with the [facility] within 7 days of discharge. Anticipate this visit to be 30-60 minutes long. Please expect a dye weigher helper phone call from one of our nurses approximately 48 hours from discharge. They will also be placing an order for lab work to be completed 1-2 days prior to your heart failure follow up appointment. Please be sure to have this done so we can go over the results when you come in. Office Location The cardiology office building is located in front of the hospital at [address] [facility] [place]. Bring the following with you to your follow-up doctor appointments: Please bring your daily weight log any discharge paperwork all of your medication bottles with you to this visit. ) Sugey Daley PA-C [Primary Care Provider] - 01/27/19 12:30 pm (Please, follow up at [facility] with Sugey Daley PA-C on SaturdayJanuary 27 at 12:30 pm. *If you need to change this appointment, call the office at [phone] ext [phone].) Diet: Heart Healthy Addtl Provider Instructions: Medications: - AUGMENTIN: antibiotic for UTI, complete 4 more days - BUMEX: changed from 2mg daily to 1mg every other day, next dose due tomorrow morning - POTASSIUM: note that the instructions changed to 20mEq every other day, take with Bumex - CARVEDILOL: dose reduced to 6.25mg twice a day from 12.5mg twice a day Syncope, fall and collapse unclear etiology, most likely cause was low volume status, dehydration, over medicated treated with IV fluids, BP has been stable, weakness improved no clear arrhythmias on the monitor, consistently bradycardic with HR in the 50's, Coreg reduced minor ischemic cardiac event, no further intervention recommended strong enough to return home per therapy Chronic heart failure Dr. Hernandez recommends reducing Bumex from 2mg daily to 1mg every other day will reduce Coreg as well to 6.25mg twice a day follow up with Dr. Hernandez and Sugey Luther at the heart failure clinic, 01/29 at 10:30 still important to follow low salt diet (less than 2gm a day) and fluid restriction of 2 liters a day weigh yourself daily in the morning if weight goes up by 2-3 lbs then call cardiology office [phone] Acute kidney injury resolved quickly with IV fluids on admission this was caused by combination of dehydration and over diuresis FOLLOW UP - Sugey Daley on 01/27 - [place] Castelan with heart failure clinic, 01/29 at 1030am, Call 911 and go to the Emergency Room if: * You have tightness or pain in your chest that does not go away with rest or Nitroglycerin * You are very short of breath even with rest Call your doctor if any of the following symptoms or problems start or get worse: * Shortness of breath or difficulty breathing * Wake up at night short of breath * Chest pain * Cough * Swelling of your hands, fee, or legs * More fatigued or tired with your normal activity * Palpitations - sudden fast heart beats WEIGHT * Weigh yourself every morning after using the bathroom. * Use the same scale. * Wear the same amount of clothing. * Write your weight down on your chart. * Call your doctor if you gain more than 2-3 pounds in 1-2 days. MEDICATIONS * Use this discharge instruction sheet for instructions. * Take your medications at the time your doctor ordered. * Do not skip a dose of your medicines. * If you miss a dose of medicine, take as soon as possible, but DO NOT DOUBLE A DOSE. * Read your medicine information when you get home. * Know all of the side effects of your medicine. * Call your doctor's office if you have any side effects. * Be sure all of your doctors know what medicine and herbs you take (including cold, flu, and herbal medicine). * Pain Medicine: If you do not get relief from your pain, please call your doctor for help. Take the following with you to your follow-up doctor appointments: * Weight Chart * Medication List * List of questions Do not drink excessive alcohol, beer or wine. Prescriptions: New amoxicillin-pot clavulanate 875-125 mg Tablet 1 tab PO BIDM 3 Days Qty: 6 RF: 0 carvedilol 6.25 mg Tablet 6.25 mg PO BID 30 Days Qty: 60 RF: 1 bumetanide 1 mg tablet 1 mg PO Q OTHER DAY Qty: 14 RF: 3 Continued atorvastatin 40 mg Tablet 40 mg PO QPM RF: 0 clopidogrel [Plavix] 75 mg Tablet 75 mg PO QAM RF: 0 tamsulosin [Flomax] 0.4 mg Capsule 0.4 mg PO QPM RF: 0 nitroglycerin 0.4 mg Tablet, Sublingual 0.4 mg sublingual UD RF: 0 omeprazole 20 mg Capsule,Delayed Release(Dr/Ec) 20 mg PO QAM RF: 0 finasteride 5 mg Tablet 5 mg PO QPM RF: 0 Symbicort 160-4.5 mcg/actuation Hfa Aerosol Inhaler 1 puff INHALATION BID RF: 0 Eliquis 5 mg tablet 5 mg PO BID RF: 0 ipratropium-albuterol 0.5 mg-3 mg(2.5 mg base)/3 mL solution for nebulization 3 ml inhalation BID RF: 0 Changed potassium chloride [Klor-Con M20] 20 mEq Tablet,Er Particles/Crystals 20 meq PO Q OTHER DAY Qty: 14 RF: 1 Discontinued carvedilol [Coreg] 12.5 mg Tablet 12.5 mg PO BID RF: 0 bumetanide 2 mg tablet 2 mg PO QAM RF: 0 Stand-Alone Forms: [facility] Discharge Orders: Discharge Order (Routine); Ordered 01/22/19 Ordered By: Carlos Andrews Admission Data Admit Date/Time: 01/16/19 23:54 Attending Provider: Carlos Andrews Admit Provider: Obey Zarate Primary Care Provider: Sugey Daley Other Providers: Mukul Daniels ; Obey Zarate ; Delano Phillips Service: Medical Other Interventions: Discharge Summary Assessment (RN) Last Done: 01/22/19 08:54
== END 2019-01-22 09:46 | disposition home health service (06) | DRG 280 ==
LOC: ED 21:41 → SUATTDRO 23:54 → 2E 23:54 → 4W 01-21 13:09
DX: Z95.2 Presence of prosthetic heart valve; Z87.891 Personal history of nicotine dependence; Z88.2 Allergy status to sulfonamides; N39.0 Urinary tract infection, site not specified; E78.5 Hyperlipidemia, unspecified; N40.0 Benign prostatic hyperplasia without lower urinary tract symptoms; Z82.49 Family history of ischemic heart disease and other diseases of the circulatory system; I11.0 Hypertensive heart disease with heart failure; J44.9 Chronic obstructive pulmonary disease, unspecified; I48.2 Chronic atrial fibrillation; I48.92 Unspecified atrial flutter; I50.33 Acute on chronic diastolic (congestive) heart failure; I05.9 Rheumatic mitral valve disease, unspecified; I21.4 Non-ST elevation (NSTEMI) myocardial infarction; Z80.6 Family history of leukemia; Z88.6 Allergy status to analgesic agent; N17.9 Acute kidney failure, unspecified; Z66 Do not resuscitate; I25.10 Atherosclerotic heart disease of native coronary artery without angina pectoris; Z95.1 Presence of aortocoronary bypass graft; R55 Syncope and collapse

== ENCOUNTER 2019-06-19 20:07 | Inpatient (IN) ==
--- NOTE | 2019-06-19 21:28 | XRay Report ---
XR chest 1V portable CLINICAL HISTORY: 89 years-old Male presenting with weakness. TECHNIQUE: Portable upright AP view of the chest was obtained. COMPARISON: 01/16/2019. FINDINGS: Atherosclerosis of the aortic arch. Cardiac silhouette enlarged. Prosthetic contrast valve noted. Pul monary vascular prominence. Small moderate right and trace left pleural effusions. Right greater than left bibasilar opacities. Interstitial prominence may be slightly increased from prior. No pneumotho rax. Degenerative changes of the thoracic spine. Advanced degenerative changes of the glenohumeral joe ints. Upper abdomen normal. IMPRESSION: 1. Cardiomegaly with greater volume overload and congestive change on the current exam in comparison to prior. 2. Chronic pleural effusions and bibasilar atelectasis, right greater than left. These are similar p rior. ACT 112: Negative or not required by law. Electronically signed by: Yusuf Beasley M.D. 06/19/2019 9:27 PM
[2019-06-19 21:39] LABS: Basophils # (auto) 0.02 K/uL (0-0.2); Basophils % (auto) 0.1 %; Eosinophils # (auto) 0.01 K/uL (0-0.5); Eosinophils % (auto) 0.1 %; Hematocrit (blood only) 39.4 % (42-52); Hemoglobin 12.7 g/dL (14.0-18.0); Immature Granulocytes # (auto) 0.06 K/uL (0.00-0.02); Immature Granulocytes % (auto) 0.4 %; Lymphocytes # (auto) 0.74 K/uL (1.2-3.4); Lymphocytes % (auto) 4.3 %; Mean Corpuscular Hemoglobin 26.9 pg (25-34); Mean Corpuscular Hgb Conc 32.2 g/dL (32-36); Mean Corpuscular Volume 83.5 fL (80-100); Mean Platelet Volume 9.4 fL (7.4-10.4); Monocytes # (auto) 1.33 K/uL (0.11-0.59); Monocytes % (auto) 7.8 %; Neutrophils # (auto) 14.98 K/uL (1.4-6.5); Neutrophils % (auto) 87.3 %; Platelet Count 196 K/uL (130-400); RDW Coefficient of Variation 15.6 % (11.5-14.5); RDW Standard Deviation 47.7 fL (36.4-46.3); Red Blood Count 4.72 M/uL (4.7-6.1); White Blood Count 17.14 K/uL (4.8-10.8)
[2019-06-19 21:45] LABS: Albumin Level 2.9 gm/dl (3.4-5.0); Calcium 8.7 mg/dl (8.5-10.1); Creatinine Clr Calc Pharmacy 47.3 ml/min; Est GFR (African American) 65.5; Est GFR (Non-African American) 56.5; Magnesium 1.7 mg/dl (1.8-2.4); Potassium 3.3 mmol/L (3.5-5.1)
[2019-06-19] MEDS ORDERED: MAGNESIUM SULFATE / D5W 1 GM/100 ML BAG IV ONE (21:47)
[2019-06-19] MEDS ORDERED: SODIUM CHLORIDE 0.9% 1000ML 250 ML IV ONE (21:48)
[2019-06-19 21:50] LABS: INR 1.3 (0.9-1.1); Prothrombin Time 13.2 Seconds (9.0-12.0)
[2019-06-19 21:58] LABS: Albumin Globulin Ratio 0.9 (0.9-2); Bilirubin,Total 1.6 mg/dl (0.2-1); Globulin 3.3 gm/dl (2.5-4.0); Thyroid Stimulating Hormone 2.12 uIu/ml (0.300-4.500); Total Protein 6.2 gm/dl (6.4-8.2); Troponin I 0.059 ng/ml (0-0.045)
--- NOTE | 2019-06-19 22:58 | History & Physical Report ---
Date of Service June 19, 2019 Assessment & Plan (1) Nausea & vomiting: Admit tele Antiemetics Feel due to viral gastroenteritis. (2) Hypokalemia: Replace and recheck in am (3) Hypomagnesemia: Replace and recheck in am. (4) Weakness: PT/OT (5) Chronic diastolic (congestive) heart failure: I do not feel he has exacerbation In fact his BP dropped to 93 systolic to which I ordered a 500ml NSS bolus with improvement of BP Daily weights (6) CAD (coronary artery disease): Continue Plavix and prn NTG Trop was mildly elevated to 0.059 to which I see he has had in the past. I attribute this to demand ischemia, but will trend, as he did have chest pain intermittently the previous few days. (7) GERD (gastroesophageal reflux disease): Continue omeprazole. (8) Atrial flutter: Continue Eliquis and carvedilol. (9) BPH (benign prostatic hyperplasia): Continue Flomax and finasteride. (10) COPD (chronic obstructive pulmonary disease): Continue duo neb BID No exacerbation History of Present Illness 89 y/o male presented to the ED with weakness, N/V, and cold chills. Daughter reports that the patient stayed in bed all day today which is unlike him. The patient lives alone and is concerned that he may get dehydrated as he continued taking his usual diuretic. No diarrhea he had a normal bm today. As I was seeing the patient he felt that he had SOB with speaking. He has had intermittent chest pain over the past few days, but does not have now. No cough or abdominal pain. He reports taking Eliquis for a-flutter. . The patient states that his PCP is Dr. Kline at the [facility] and that his medical records field technician is Dr. Hernandez. Primary Care Provider: Sugey Daley PA-C Allergies Allergy/AdvReac Type Severity Reaction Status Date / Time aspirin AdvReac Intermediate GI Verified 06/19/19 21:15 ULCERATION- WHEN TAKEN WITH COUMADIN black pepper AdvReac Mild Prostate Verified 06/19/19 21:15 problems lisinopril AdvReac Mild Cough Verified 06/19/19 21:15 Sulfa (Sulfonamide AdvReac Unknown "SULFA Verified 06/19/19 21:15 Antibiotics) DRUGS": HAS TOLERATED LASIX IN PAST Home Medications Home Medications Medication Instructions Recorded Confirmed Type atorvastatin 40 mg PO QPM 08/24/18 06/19/19 History clopidogrel [Plavix] 75 mg PO QAM 08/24/18 06/19/19 History finasteride 5 mg PO QPM 08/24/18 06/19/19 History omeprazole 20 mg PO QAM 08/24/18 06/19/19 History tamsulosin [Flomax] 0.4 mg PO QPM 08/24/18 06/19/19 History nitroglycerin 0.4 mg sublingual 0.4 mg SUBLINGUAL DIRECTED PRN 01/27/19 06/19/19 History tablet tab apixaban 5 mg tablet 5 mg PO BID #180 tab 02/06/19 06/19/19 Rx carvedilol 12.5 mg tablet 12.5 mg PO BID 05/25/19 06/19/19 History bumetanide 2 mg PO QAM 06/19/19 06/19/19 History ipratropium-albuterol [Combivent 1 puff INHALATION BID 06/19/19 06/19/19 History Respimat] potassium chloride [Klor-Con M20] 20 meq PO QAM 06/19/19 06/19/19 History Past Med/Surg History Medical History Atrial fibrillation (Chronic) BPH (benign prostatic hyperplasia) CAD (coronary artery disease) (Chronic) CHF (congestive heart failure) (Resolved) Chronic diastolic (congestive) heart failure COPD (chronic obstructive pulmonary disease) Hyperlipidemia Hypertension (Chronic) 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 Mitral valve disorder (Chronic) Paroxysmal atrial flutter Proteus mirabilis infection Streptococcal infection Wound of right foot Surgical History H/O mitral valve repair S/P CABG x 3 [facility] - 1999 Family History Father Asthma Heart disease Mother Leukemia Social History Preferred Language: Citizen Of [place] Communication Ability: Effective Payroll Coordinator Required: No Beliefs That Will Affect Care: None marital status: / Current Living Situation: Alone current occupational status: retired current occupation: worked 18 years at [employer] in [place]; served in [employer] Other Information That Helps Us Care for You: No other: lives alone in [place]; has 2 children Feels Safe at Home: Yes Safety Concerns: Feels Safe At This Time Smoking Status: Former smoker Tobacco Type: cigarettes ; Cigarettes Per Day: 1- 2 ppd since teenage years ; Second Hand Exposure: No ; Hx Alcohol Use: No Hx Substance Use: No Review of Systems Review of Systems: Constitutional- no documented fever; no weight loss Eyes- no acute visual changes ENT- no sinus drainage; no pharyngitis Pulmonary- As in HPI Cardiac-As in HPI, No increase in weight or edema. ABD-As in HPI - no dysuria, no hematuria Musculoskeletal- no arthralgias, no myalgias Derm- no rashes, no new skin lesions. Hematologic- no unusual bruising, no unusual bleeding Lymphatics- no adenopathy Endocrine- no polyuria or polydipsia; no heat or cold intolerance Neuro- no headaches, no focal neurologic symptoms Psych- no anxiety, no depression Physical Exam Physical Exam: General- adult male appears weak, but not in acute distress. Head- atraumatic Eyes- PERRL, EOMI, anicteric ENT- oropharynx clear Neck- supple, no JVD, no adenopathy, no thyromegaly. Lungs- CTA b/l no R/R/W. Heart- irregular rhythm; no murmur, no gallop, no rub appreciated Abdomen- normal bowel sounds, soft, nontender. Extremities- trace pretibial edema which patient feels is chronic, no calf tenderness; peripheral pulses intact Neuro- alert, oriented x 3; tourist cabin keeper II-XII grossly intact, non-focal. Skin- warm & dry Results & Data Vital Signs (Past 12 Hours) Vital Signs Temp Pulse Pulse Resp BP BP Pulse Ox 06/19/19 22:30 70 20 119/60 95 06/19/19 20:15 37.5 C 80 22 114/57 L 98 Laboratory Results Laboratory Results WBC 17.14 K/uL (4.8-10.8) H 06/19/19 21:15 RBC 4.72 M/uL (4.7-6.1) 06/19/19 21:15 Hgb 12.7 g/dL (14.0-18.0) L 06/19/19 21:15 Hct 39.4 % (42-52) L 06/19/19 21:15 MCV 83.5 fL (80-100) 06/19/19 21:15 MCH 26.9 pg (25-34) 06/19/19 21:15 MCHC 32.2 g/dL (32-36) 06/19/19 21:15 RDW Std Deviation 47.7 fL (36.4-46.3) H 06/19/19 21:15 RDW Coeff of Michelle 15.6 % (11.5-14.5) H 06/19/19 21:15 Plt Count 196 K/uL (130-400) 06/19/19 21:15 MPV 9.4 fL (7.4-10.4) 06/19/19 21:15 Immature Gran % (Auto) 0.4 % 06/19/19 21:15 Neut % (Auto) 87.3 % 06/19/19 21:15 Lymph % (Auto) 4.3 % 06/19/19 21:15 Schuyler % (Auto) 7.8 % 06/19/19 21:15 Eos % (Auto) 0.1 % 06/19/19 21:15 Baso % (Auto) 0.1 % 06/19/19 21:15 Immature Gran # (Auto) 0.06 K/uL (0.00-0.02) H 06/19/19 21:15 Neut # (Auto) 14.98 K/uL (1.4-6.5) H 06/19/19 21:15 Lymph # (Auto) 0.74 K/uL (1.2-3.4) L 06/19/19 21:15 Schuyler # (Auto) 1.33 K/uL (0.11-0.59) H 06/19/19 21:15 Eos # (Auto) 0.01 K/uL (0-0.5) 06/19/19 21:15 Baso # (Auto) 0.02 K/uL (0-0.2) 06/19/19 21:15 PT 13.2 Seconds (9.0-12.0) H 06/19/19 21:15 INR 1.3 (0.9-1.1) H 06/19/19 21:15 Sodium 139 mmol/L (136-145) 06/19/19 21:15 Potassium 3.3 mmol/L (3.5-5.1) L 06/19/19 21:15 Chloride 103 mmol/L (98-107) 06/19/19 21:15 Carbon Dioxide 28 mmol/L (21-32) 06/19/19 21:15 Anion Gap 7.0 (3-11) 06/19/19 21:15 BUN 17 mg/dl (7-18) 06/19/19 21:15 Creatinine 1.15 mg/dl (0.6-1.4) 06/19/19 21:15 Est Cr Clr Drug Dosing 47.3 ml/min 06/19/19 21:15 Est GFR ( Amer) 65.5 06/19/19 21:15 Est GFR (Non-Af Amer) 56.5 06/19/19 21:15 BUN/Creatinine Ratio 15.0 (10-20) 06/19/19 21:15 Glucose 105 mg/dl (70-99) H 06/19/19 21:15 Lactate 1.9 mmol/L (0.4-2.0) 06/19/19 21:15 Calcium 8.7 mg/dl (8.5-10.1) 06/19/19 21:15 Magnesium 1.7 mg/dl (1.8-2.4) L 06/19/19 21:15 Total Bilirubin 1.6 mg/dl (0.2-1) H 06/19/19 21:15 AST 21 U/L (15-37) 06/19/19 21:15 ALT 15 U/L (12-78) 06/19/19 21:15 Alkaline Phosphatase 69 U/L (45-117) 06/19/19 21:15 Troponin I 0.059 ng/ml (0-0.045) H* 06/19/19 21:15 Total Protein 6.2 gm/dl (6.4-8.2) L 06/19/19 21:15 Albumin 2.9 gm/dl (3.4-5.0) L 06/19/19 21:15 Globulin 3.3 gm/dl (2.5-4.0) 06/19/19 21:15 Albumin/Globulin Ratio 0.9 (0.9-2) 06/19/19 21:15 Lipase 129 U/L (73-393) 06/19/19 21:15 TSH 2.120 uIu/ml (0.300-4.500) 06/19/19 21:15 [phone] [facility] Report Patient: GENE WOLFEAdmit Date: 06/19/19 MR#: [id number]: [address] Acct ID:[id number]: [facility] Zip[facility] [place] [id number] Age: 89Location: ED Sex: M Room/Bed: Att Phy:Diagnosis: Illness Karly Phy: Sugey Daley PA-CService Date: 06/19/19 Fam Phy:Interpreting Phy: Yusuf Beasley MD Admit Phy: Ordering Phy: Marty Amador M.D. cc: ~ XR chest 1V portable CLINICAL HISTORY: 89 years-old Male presenting with weakness. TECHNIQUE: Portable upright AP view of the chest was obtained. COMPARISON: 01/16/2019. FINDINGS: Atherosclerosis of the aortic arch. Cardiac silhouette enlarged. Prosthetic contrast valve noted. Pulmonary vascular prominence. Small moderate right and trace left pleural effusions. Right greater than left bibasilar opacities. Interstitial prominence may be slightly increased from prior. No pneumothorax. Degenerative changes of the thoracic spine. Advanced degenerative changes of the glenohumeral joints. Upper abdomen normal. IMPRESSION: 1. Cardiomegaly with greater volume overload and congestive change on the current exam in comparison to prior. 2. Chronic pleural effusions and bibasilar atelectasis, right greater than left. These are similar prior. ACT 112: Negative or not required by law. Electronically signed by: Yusuf Beasley M.D. 06/19/2019 9:27 PM Dictated: 06/19/192124 Transcribed: 06/19/192124 PG Care Time/CCT Total # of Minutes Spent Total Time Spent: 55 Total Time Spent with Patient: Total time spent is greater than 50% in coordination of care (as documented) at patient's floor/unit and/or counseling patient: (1) CAD (coronary artery disease) Coronary Disease-Associated Artery/Lesion type: [place] artery [place] vs. transplanted heart: [place] heart Associated angina: without angina Qualified Code(s): I25.10 - Atherosclerotic heart disease of [place] coronary artery without angina pectoris (2) GERD (gastroesophageal reflux disease) Esophagitis presence: without esophagitis Qualified Code(s): K21.9 - Gastro- esophageal reflux disease without esophagitis (3) BPH (benign prostatic hyperplasia) Lower urinary tract symptom presence: symptoms absent Qualified Code(s): N40.0 - Benign prostatic hyperplasia without lower urinary tract symptoms (4) COPD (chronic obstructive pulmonary disease) COPD type: unspecified COPD Qualified Code(s): J44.9 - Chronic obstructive pulmonary disease, unspecified
--- NOTE | 2019-06-20 00:11 | Emergency Department Note ---
Entered by Ramona Echevarria acting as a scribe for History of Present Illness General Chief complaint: Illness Stated complaint: Illness Time Seen by Provider: 06/19/19 20:23 Source: patient and family (daughter) Mode of arrival: EMS Limitations: no limitations History of Present Illness Provider complaint: Weakness Onset (ago): day(s) (last night) Severity: similar to prior episodes (dehydration) Pain Consistency: + other (worsening) Quality: + other (weakness) Associated symptoms: + chest pain (left-sided), + fever/chills (positive chills, negative fever), + nausea/vomiting (nausea is now resolved), + shortness of breath and + other (Additional symptoms: left hip pain. Denies: diarrhea, abdominal pain) Treatments prior to arrival: none The patient is an 89 year old male with a history of atrial fibrillation, BPH, CAD, CHF, COPD, hyperlipidemia, hypertension, mitral valve repair, paroxysmal atrial flutter, CABG x 3 who presents to the Emergency Room with complaints of worsening weakness starting last night. Per daughter, the patient started feeling unwell when he went to bed after supper yesterday. She notes that he lives alone but that she joined him for dinner and thought that he seemed to be doing well at that time. She suspects that the patient got sick overnight. She reports that the patient had difficulty sleeping and stayed in bed all day today as well. As such, he apparently has not been able to take his daily medication yet. The patient states that he feels cold and weak. He also complains of vomiting, now resolved nausea, slight shortness of breath, occasional left-sided chest pain, and left hip pain. His daughter mentions that the patient's hip pain may be related to the fact that he has been favoring his left foot due to some foot issues. The patient denies any diarrhea and abdominal pain. The daughter explains that the patient has experienced similar symptoms when he has been dehydrated in the past. She reports that he took 2 fluid pills yesterday and is concerned that he has become dehydrated. The patient states that his PCP is [facility] and that his ic engineer is Dr. Hernandez. Home Medications Home Medications Medication Instructions Recorded Confirmed Type atorvastatin 40 mg PO QPM 08/24/18 06/19/19 History clopidogrel [Plavix] 75 mg PO QAM 08/24/18 06/19/19 History finasteride 5 mg PO QPM 08/24/18 06/19/19 History omeprazole 20 mg PO QAM 08/24/18 06/19/19 History tamsulosin [Flomax] 0.4 mg PO QPM 08/24/18 06/19/19 History nitroglycerin 0.4 mg sublingual 0.4 mg SUBLINGUAL DIRECTED PRN 01/27/19 06/19/19 History tablet tab apixaban 5 mg tablet 5 mg PO BID #180 tab 02/06/19 06/19/19 Rx carvedilol 12.5 mg tablet 12.5 mg PO BID 05/25/19 06/19/19 History bumetanide 2 mg PO QAM 06/19/19 06/19/19 History ipratropium-albuterol [Combivent 1 puff INHALATION BID 06/19/19 06/19/19 History Respimat] potassium chloride [Klor-Con M20] 20 meq PO QAM 06/19/19 06/19/19 History Allergies Allergy/AdvReac Type Severity Reaction Status Date / Time aspirin AdvReac Intermediate GI Verified 06/19/19 21:15 ULCERATION- WHEN TAKEN WITH COUMADIN black pepper AdvReac Mild Prostate Verified 06/19/19 21:15 problems lisinopril AdvReac Mild Cough Verified 06/19/19 21:15 Sulfa (Sulfonamide AdvReac Unknown "SULFA Verified 06/19/19 21:15 Antibiotics) DRUGS": HAS TOLERATED LASIX IN PAST Past Med/Surg History Medical History Atrial fibrillation (Chronic) BPH (benign prostatic hyperplasia) CAD (coronary artery disease) (Chronic) CHF (congestive heart failure) (Resolved) Chronic diastolic (congestive) heart failure COPD (chronic obstructive pulmonary disease) Hyperlipidemia Hypertension (Chronic) 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 Mitral valve disorder (Chronic) Paroxysmal atrial flutter Proteus mirabilis infection Streptococcal infection Wound of right foot Surgical History H/O mitral valve repair S/P CABG x 3 [facility] - 1999 Family History Father Asthma Heart disease Mother Leukemia Social History Preferred Language: Mozambican Communication Ability: Effective 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 and A total of 10 systems reviewed and were otherwise negative Physical Exam Vital Signs Vital Signs - 24 hr 06/19/19 20:15 06/19/19 20:41 06/19/19 22:30 Temperature 37.5 C Temperature Source Oral Pulse Rate 80 Pulse Rate [Left Finger] 70 Respiratory Rate 22 20 Blood Pressure 114/57 L Blood Pressure [Left Arm] 119/60 Blood Pressure Mean 76 Blood Pressure Mean [Left Arm] 79 Blood Pressure Position Sitting Pulse Oximetry 98 95 Oxygen Delivery Method Room Air Room Air Sepsis Recent Fever Within 48 Hours No Sepsis New/Unexplained Change in Mental Status No Sepsis Action Taken by Nursing No Action Required 06/19/19 23:26 Temperature Temperature Source Pulse Rate Pulse Rate [Left Finger] 59 L Respiratory Rate 18 Blood Pressure Blood Pressure [Left Arm] 93/53 L Blood Pressure Mean Blood Pressure Mean [Left Arm] 66 Blood Pressure Position Pulse Oximetry 95 Oxygen Delivery Method Room Air Sepsis Recent Fever Within 48 Hours Sepsis New/Unexplained Change in Mental Status Sepsis Action Taken by Nursing GENERAL: Awake, alert, weak and fatigued-appearing, in no distress, on nasal cannula O2 HENT: Normocephalic, atraumatic. EYES: Normal conjunctiva. Sclera non-icteric. NECK: Supple. No nuchal rigidity. RESPIRATORY: Diminished lung bases. No wheezes. Normal respiratory effort. CARDIAC: Normal rate. Irregular rhythm. Extremities warm and well perfused. GI: Soft, non-distended. No tenderness to palpation. MUSCULOSKELETAL: Atraumatic. Chest examination reveals no tenderness. No si gnificant L hip tenderness LOWER EXTREMITIES: Calves are equal size bilaterally and non-tender. Trace bilateral pedal edema NEURO: Normal sensorium. No sensory or motor deficits noted. No facial droop. SKIN: Warm and dry. No jaundice noted. Course Course 2030: The patient was evaluated in room B5, and a complete history and physical examination were performed. 2154: I checked on the patient and updated him and his family on his results. 2208: I reviewed the patient's case with Dr. Silva - [facility]. Dr. Silva will evaluate the patient for further management. Consultations Consultation #1: I reviewed the patient's case with Dr. Silva - [place], [facility]. Dr. Silva will evaluate the patient for further management. Time: 22:09 Administered Medications Discontinued Medications Magnesium Sulfate/Dextrose (Magnesium Sulfate / D5w) 1 gm in 100 mls @ 100 mls/hr IV ONE ONE Stop: 06/19/19 22:46 Last Infusion: 06/19/19 23:06 Dose: 0 mls/hr Documented by: [id number] Admin: 06/19/19 22:05 Dose: 100 mls/hr Documented by: [id number] Sodium Chloride (Nss 1000ml) 250 mls @ 999 mls/hr IV .Q16M ONE Stop: 06/19/19 22:03 Last Infusion: 06/19/19 23:06 Dose: 0 mls/hr Documented by: [id number] Admin: 06/19/19 22:05 Dose: 999 mls/hr Documented by: [id number] Medical Decision Making Differential Diagnosis Differential diagnosis: Etiologies such as metabolic, infection, hypo/hyperglycemia, electrolyte abnormalities, cardiac sources, intracerebral event, toxicologic, neurologic, as well as others were entertained. Medical Records Attestation: I reviewed the patient's medical records. Home Medications Current Medication List: was personally reviewed by me Laboratory Data Attestation: I reviewed the patient's lab results. Result diagrams: 06/19/19 21:15 06/19/19 21:15 Lab Results 06/19/19 06/19/19 06/19/19 Range/Units 21:15 21:15 21:15 WBC 17.14 H (4.8-10.8) K/uL RBC 4.72 (4.7-6.1) M/uL Hgb 12.7 L (14.0-18.0) g/dL Hct 39.4 L (42-52) % MCV 83.5 (80-100) fL MCH 26.9 (25-34) pg MCHC 32.2 (32-36) g/dL RDW Std Deviation 47.7 H (36.4-46.3) fL RDW Coeff of Michelle 15.6 H (11.5-14.5) % Plt Count 196 (130-400) K/uL MPV 9.4 (7.4-10.4) fL Immature Gran % (Auto) 0.4 % Neut % (Auto) 87.3 % Lymph % (Auto) 4.3 % [place] % (Auto) 7.8 % Eos % (Auto) 0.1 % Baso % (Auto) 0.1 % Immature Gran # (Auto) 0.06 H (0.00-0.02) K/uL Neut # (Auto) 14.98 H (1.4-6.5) K/uL Lymph # (Auto) 0.74 L (1.2-3.4) K/uL [place] # (Auto) 1.33 H (0.11-0.59) K/uL Eos # (Auto) 0.01 (0-0.5) K/uL Baso # (Auto) 0.02 (0-0.2) K/uL PT 13.2 H (9.0-12.0) Seconds INR 1.3 H (0.9-1.1) Sodium 139 (136-145) mmol/L Potassium 3.3 L (3.5-5.1) mmol/L Chloride 103 (98-107) mmol/L Carbon Dioxide 28 (21-32) mmol/L Anion Gap 7.0 (3-11) BUN 17 (7-18) mg/dl Creatinine 1.15 (0.6-1.4) mg/dl Est Cr Clr Drug Dosing 47.3 ml/min Est GFR ( Amer) 65.5 Est GFR (Non-Af Amer) 56.5 BUN/Creatinine Ratio 15.0 (10-20) Glucose 105 H (70-99) mg/dl Lactate (0.4-2.0) mmol/L Calcium 8.7 (8.5-10.1) mg/dl Magnesium 1.7 L (1.8-2.4) mg/dl Total Bilirubin 1.6 H (0.2-1) mg/dl AST 21 (15-37) U/L ALT 15 (12-78) U/L Alkaline Phosphatase 69 (45-117) U/L Troponin I 0.059 H* (0-0.045) ng/ml Total Protein 6.2 L (6.4-8.2) gm/dl Albumin 2.9 L (3.4-5.0) gm/dl Globulin 3.3 (2.5-4.0) gm/dl Albumin/Globulin Ratio 0.9 (0.9-2) Lipase 129 (73-393) U/L TSH 2.120 (0.300-4.500) uIu/ml 06/19/19 Range/Units 21:15 WBC (4.8-10.8) K/uL RBC (4.7-6.1) M/uL Hgb (14.0-18.0) g/dL Hct (42-52) % MCV (80-100) fL MCH (25-34) pg MCHC (32-36) g/dL RDW Std Deviation (36.4-46.3) fL RDW Coeff of Michelle (11.5-14.5) % Plt Count (130-400) K/uL MPV (7.4-10.4) fL Immature Gran % (Auto) % Neut % (Auto) % Lymph % (Auto) % [place] % (Auto) % Eos % (Auto) % Baso % (Auto) % Immature Gran # (Auto) (0.00-0.02) K/uL Neut # (Auto) (1.4-6.5) K/uL Lymph # (Auto) (1.2-3.4) K/uL [place] # (Auto) (0.11-0.59) K/uL Eos # (Auto) (0-0.5) K/uL Baso # (Auto) (0-0.2) K/uL PT (9.0-12.0) Seconds INR (0.9-1.1) Sodium (136-145) mmol/L Potassium (3.5-5.1) mmol/L Chloride (98-107) mmol/L Carbon Dioxide (21-32) mmol/L Anion Gap (3-11) BUN (7-18) mg/dl Creatinine (0.6-1.4) mg/dl Est Cr Clr Drug Dosing ml/min Est GFR ( Amer) Est GFR (Non-Af Amer) BUN/Creatinine Ratio (10-20) Glucose (70-99) mg/dl Lactate 1.9 (0.4-2.0) mmol/L Calcium (8.5-10.1) mg/dl Magnesium (1.8-2.4) mg/dl Total Bilirubin (0.2-1) mg/dl AST (15-37) U/L ALT (12-78) U/L Alkaline Phosphatase (45-117) U/L Troponin I (0-0.045) ng/ml Total Protein (6.4-8.2) gm/dl Albumin (3.4-5.0) gm/dl Globulin (2.5-4.0) gm/dl Albumin/Globulin Ratio (0.9-2) Lipase (73-393) U/L TSH (0.300-4.500) uIu/ml Imaging Data Radiologist's Impression: Radiology results as stated below per my review and the radiologist's interpretation: XR chest 1V portable CLINICAL HISTORY: 89 years-old Male presenting with weakness. TECHNIQUE: Portable upright AP view of the chest was obtained. COMPARISON: 01/16/2019. FINDINGS: Atherosclerosis of the aortic arch. Cardiac silhouette enlarged. Prosthetic contrast valve noted. Pulmonary vascular prominence. Small moderate right and trace left pleural effusions. Right greater than left bibasilar opacities. I nterstitial prominence may be slightly increased from prior. No pneumothorax. Degenerative changes of the thoracic spine. Advanced degenerative changes of the glenohumeral joints. Upper abdomen normal. IMPRESSION: 1. Cardiomegaly with greater volume overload and congestive change on the current exam in comparison to prior. 2. Chronic pleural effusions and bibasilar atelectasis, right greater than left. These are similar prior. ACT 112: Negative or not required by law. Electronically signed by: Yusuf Beasley M.D. 06/19/2019 9:27 PM ECG Data Attestation: I personally reviewed and interpreted this ECG as follows: Indication: + weakness Rate (beats per minute): 82 Rhythm: + atrial flutter ECG Intervals/blocks: + Normal QT-c ECG [place]: + Normal ECG ST segments: no ST elevation ECG Findings: + PVCs Blood Pressure Blood Pressure Findings: Low blood pressure Blood Pressure Disposition: further management by hospitalist JESSIE Narrative Patient is an 89-year-old gentleman with a history of atrial flutter, CHF, GERD, COPD presenting today with a complaint of profound weakness today with some nausea and vomiting. Patient denies shortness of breath but reported the ambulance some chest pain earlier. This resolved upon arrival. No other abdominal pain reportedly states a little bit of left hip pain. Took extra Bumex yesterday as he seemed to be a little bit extra fluid according to him. Today was unable to get a bed due to this weakness. Has happened to him before in the past related some dehydration issues. Denies real other flulike symptoms. Does endorse some chills. Appears fatigued on exam. Basic labs, x- ray, and EKG were completed. Chest x-ray appears stable. Leukocytosis is nota ble with very slight troponin elevation. I doubt this is acutely cardiac. No evidence of hepatitis or pancreatitis. Lactate not significantly elevated. Very mild hypokalemia but hypomagnesemia is noted. Magnesium supplementation ordered. Given a 250 cc normal saline bolus. Urine sample pending concern for possible occult UTI. Does not appear septic. Requires admission given his weakness and possible occult infection. Hospitalist contacted. Deferred antibiotics to the hospitalist team at this time. Impression & Plan Hypomagnesemia, Hypokalemia, Weakness Discharge Plan Visit Data Chief Complaint: Illness Stated Complaint: Illness ED Provider: Marty Amador Discharge Problem: Hypomagnesemia, Hypokalemia, Weakness Patient Disposition: Admitted As Inpatient Discharge Instructions Interventions: ED Discharge Assessment Last Done: 06/19/19 23:39 Forms Stand Alone Forms: My [facility] Prescriptions Prescriptions: No Action Eliquis 5 mg tablet 5 mg PO BID Qty: 180 RF: 3 carvedilol 12.5 mg tablet 12.5 mg PO BID RF: 0 atorvastatin 40 mg Tablet 40 mg PO QPM RF: 0 clopidogrel [Plavix] 75 mg Tablet 75 mg PO QAM RF: 0 tamsulosin [Flomax] 0.4 mg Capsule 0.4 mg PO QPM RF: 0 omeprazole 20 mg Capsule,Delayed Release(Dr/Ec) 20 mg PO QAM RF: 0 finasteride 5 mg Tablet 5 mg PO QPM RF: 0 nitroglycerin 0.4 mg tablet, sublingual 0.4 mg sublingual DIRECTED PRN (Reason: Chest Pain) RF: 0 potassium chloride [Klor-Con M20] 20 mEq tablet,ER particles/crystals 20 meq PO QAM RF: 0 bumetanide 1 mg tablet 2 mg PO QAM RF: 0 Combivent Respimat 20-100 mcg/actuation Mist 1 puff INHALATION BID RF: 0 Referrals Referrals: Sugey Daley PA-C [Primary Care Provider] - The scribe's documentation has been prepared under my direction and personally reviewed by me in its entirety. I confirm that the note above accurately reflects all work, treatment, procedures, and medical decision making performed by me.
[2019-06-20] MEDS ORDERED: ALBUTEROL 0.083% NEBU SOLN 3 ML VIAL NEB PRN (00:14)
[2019-06-20] MEDS ORDERED: ONDANSETRON INJ 2 MG/ML 2 ML VIAL IV PRN (00:14)
[2019-06-20] MEDS ORDERED: NITROGLYCERIN SL 0.4 MG/TAB TAB SL PRN (00:14)
[2019-06-20] MEDS ORDERED: ACETAMINOPHEN 325 MG TAB PO PRN (00:14)
[2019-06-20] MEDS ORDERED: SODIUM CHLORIDE 0.9% 500 ML IV SCH (00:45)
[2019-06-20] MEDS: POTASSIUM CHLORIDE / WTR 10 MEQ/100 ML PLCT IV SCH ×2 (01:31→02:52)
[2019-06-20 02:07] LABS: Appearance Urine Clear (Clear); Bilirubin Urine Negative (Negative); Blood Urine Negative (Negative); Color Urine Dark Yellow; Glucose Urine UA Negative (Negative); Ketones Urine Negative (Negative); Leukocyte Esterase Urine Negative (Negative); Nitrite Urine Negative (Negative); Protein Urine Negative (Negative); Urobilinogen Urine Negative (Negative)
[2019-06-20] MEDS: LACTATED RINGER'S 1,000 ML IV SCH ×2 (02:46→12:16)
[2019-06-20 07:37] LABS: Hematocrit (blood only) 34.3 % (42-52); Mean Corpuscular Hemoglobin 26.7 pg (25-34); Mean Corpuscular Hgb Conc 32.1 g/dL (32-36); Mean Corpuscular Volume 83.3 fL (80-100); Mean Platelet Volume 9.1 fL (7.4-10.4); Platelet Count 161 K/uL (130-400); RDW Coefficient of Variation 15.9 % (11.5-14.5); Red Blood Count 4.12 M/uL (4.7-6.1); White Blood Count 10.81 K/uL (4.8-10.8)
[2019-06-20] MEDS: ALBUT/IPRATROP 3MG/0.5MG NEB 3 ML VIAL NEB SCH ×2 (07:37→19:03)
[2019-06-20 08:02] LABS: BUN Creatinine Ratio 17.9 (10-20); Calcium 8.3 mg/dl (8.5-10.1); Creatinine Clr Calc Pharmacy 55.5 ml/min; Est GFR (African American) 79.5; Est GFR (Non-African American) 68.6; Magnesium 2.1 mg/dl (1.8-2.4); Potassium 3.6 mmol/L (3.5-5.1)
[2019-06-20] MEDS: PANTOprazole 40 MG TAB PO SCH (08:15)
[2019-06-20] MEDS: CLOPIDOGREL BISULFATE 75 MG TAB PO SCH (08:15)
[2019-06-20] MEDS: POTASSIUM CHLORIDE 20 MEQ TABCR PO SCH (08:15)
[2019-06-20] MEDS: APIXABAN 5 MG TABLET PO SCH ×2 (08:15→21:41)
[2019-06-20] MEDS: carvediloL 12.5 MG TAB PO SCH ×3 (08:15→22:10)
--- NOTE | 2019-06-20 08:28 | CT Scan Report ---
CT chest wo con CT DOSE: 500.89 mGy.cm CLINICAL HISTORY: 89 years-old Male with SOB, leukocytosis looking for pneumonia.. Acute shortness o f breath with possible pneumonia TECHNIQUE: Multiaxial CT images of the chest were performed without contrast. A dose lowering techni que was utilized adhering to the principles of ALARA. COMPARISON: CTA of the chest 01/16/2019, 12/12/2017. FINDINGS: Heterogeneous thyroid. Unchanged mediastinal adenopathy includes a 2.5 x 1.2 cm precarinal lymph node . Calcified subcarinal and hilar lymph nodes compatible with prior granulomatous disease. Moderate ca rdiomegaly. Extensive coronary arterial calcifications with findings suggestive of prior CABG. Chroni c postoperative changes of the sternum with chronic unchanged diastases.. Prosthetic mitral valve. 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 Moderate calcified plaque the abd ominal aorta. Mild dilation of the main pulmonary artery suggests pulmonary arterial hypertension. Trace left and moderate right pleural effusions, unchanged from the 01/16/2019 exam. There is no pneum othorax. Chronic pleural parenchymal scarring of the left upper lobe with multifocal left greater migdalia n right tree-in-bud nodules suggestive of bronchiolitis. There is suggestion of mild emphysema. Mild linear scarring/atelectasis of the left lower lobe. 4 mm solid nodule of the right upper lobe, image 102 series 4 is unchanged. Respiratory motion artifact limits evaluation of the lung parenchyma. Ther e is a 4 mm solid nodule of the right middle lobe with adjacent irregular 3.9 x 2.2 cm consolidation. On the prior study there is a medially located 2.0 cm consolidation within the right middle lobe. De pendent consolidation of the right lower lobe. Central airways appear patent. No acute processes of the imaged upper abdomen. Soft tissues are unremarkable. Degenerative changes o f the shoulders and spine. No acute fracture identified. IMPRESSION: 1. Unchanged trace left and moderate right pleural effusions. There is mild linear scarring/atelectas is of the left lower lobe with dependent consolidation of the right lower lobe, stable from compariso n. Findings are suggestive of compressive atelectasis with pneumonia considered less likely. 2. Unchanged mediastinal adenopathy with evidence of prior granulomatous disease. 3. Cardiomegaly without overt pulmonary edema. 4. 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 5. Left greater than right bilateral tree-in-bud nodules suggests infectious or inflammatory bronchio litis. 6. Irregular 3.9 x 2.2 cm consolidative opacity of the right middle lobe suggests probable round atel ectasis however follow-up is recommended to exclude a pulmonary lesion. 7. Unchanged 4 mm solid nodule of the right upper lobe, stable from 12/12/2017. ACT 112: Negative or not required by law. Please refer to below summary of Fleischner criteria recommendations for follow-up of incidental CT n odules (Brittany Corral, Guidelines for management of small pulmonary nodules detected on CT scans: A sta tement from the Fleischner Society, Radiology 237: [phone].) SOLID NODULES Solitary nodule size: <6 mm * Low risk patients: no follow-up needed * high risk patients: optional CT at 12 months Solitary nodule size: 6-8 mm * Low risk patients: follow-up at 6-12 months, then consider further follow-up at 18-24 months * high risk patients: initial follow-up CT at 6-12 months and then at 18-24 months if no change Solitary nodule size: >8 mm * either low or high risk patients - consider follow-up CT at 3 months, and/or CT-PET, and/or biopsy Multiple nodules size: <6 mm * Low risk patients: no routine follow-up * high risk patients: optional CT at 12 months Multiple nodules size: 6-8 mm * Low risk patients: follow-up at 3-6 months, then consider further follow-up at 18-24 months * high risk patients: follow-up at 3-6 months, then at 18-24 months if no change Multiple nodules size: >8 mm * Low risk patients: follow-up at 3-6 months, then consider further follow-up at 18-24 months * high risk patients: follow-up at 3-6 months, then at 18-24 months if no change Note: newly detected indeterminate nodule in persons 35 years of age or older. * Low risk patients: minimal or absent history of smoking and/or other known risk factors * high risk patients: history of smoking or of other known risk factors (e.g. first degree relative with lung cancer, or exposure to asbestos, radon, uranium) * if a nodule up to 8 mm is partly solid or is ground glass further follow-up is required after 24 m onths to exclude possible slow growing adenocarcinoma (ADITHYA) The above report was generated using voice recognition software. It may contain grammatical, syntax o r spelling errors. Electronically signed by: Antolin Cowart M.D. 06/20/2019 8:26 AM
--- NOTE | 2019-06-20 11:14 | Electrocardiogram Report ---
Test Reason : Blood Pressure : / mmHG Vent. Rate : 082 BPM Atrial Rate : 241 BPM P-R Int : 000 ms QRS Dur : 104 ms QT Int : 442 ms P-R-T Axes : 000 054 080 degrees QTc Int : 516 ms Atrial flutter with variable A-V block with premature ventricular or aberrantly conducted complexes Prolonged QT Abnormal ECG When compared with ECG of 16-JAN-2019 23:20, Borderline criteria for Inferior infarct are no longer Present Confirmed by Dustin Gore ([id number]) on 06/20/2019 11:14:38 AM Referred By: REFERRED SELF Confirmed By:Dustin Gore
--- NOTE | 2019-06-20 18:48 | Hospitalist Progress Note ---
Date of Service June 20, 2019 Assessment & Plan (1) Nausea & vomiting: - RESOLVED - Only one episode of vomiting - daughter states he tends to feel weak and ill when he has swings in his volume status. He has been taking extra Bumex due to lower extremity edema and weight gain so possibly got slightly dry causing illness - Given lack of ongoing symptoms this is unlikely gastroenteritis; no diarrhea, no fevers, no sick contacts - Did have a WBC of 17 on admission and nearly normalized at 10.81 without antibiotics - currently cannot explain this findings but will add procalcitonin and recheck labs in AM - Influenza swap neg and will check PCR; repeat CXR in AM to reassess lungs; uri ne unremarkable; skin unremarkable - question if there is still a unidentified infectious process? - Symptoms may have correlated some with some volume depletion given Bumex and additional dosing - will stop additional fluids for now given his risk of CHF exacerbation and monitor -- Will hold Bumex at least for now until reassessed (2) Weakness: - Maybe from dehydration; some from his leg pain?; unidentified infection? - PT/OT (3) Chronic diastolic (congestive) heart failure: - CT - unchanged trace L and moderate R pleural effusion with mild atelectasis of LLL with dependent consolidation of RLL which is also stable - suggests this is compressive atelectasis; no overt pulmonary edema; L > R bilateral tree-in-bud nodules either infectious or inflammatory bronchiolitis; irregular consolidative opacity of RML likely atelectasis but will need followed; stable 4 mm stable - Does no appear in exacerbation at this time - If breathing continues to be a problem may benefit from thoracentesis depending on amount of fluid actually present (4) CAD (coronary artery disease): - Trops slightly elevated at 0.059 and 0.065 and now trending down to 0.050 - possibly demand ischemia -- Given episode of vomiting and feeling unwell will repeat echo to assess for any changes to suggest a primary cardiac etiology - Continue Atorvastatin 40 mg daily, Carvedilol 12.5 mg BID, Plavix 75 mg daily (5) GERD (gastroesophageal reflux disease): - Continue protonix 40 mg daily (6) Atrial flutter: - Stable - Eliquis 5 mg BID; Carvedilol BID (7) BPH (benign prostatic hyperplasia): - Continue Flomax 0.4 mg daily and Finasteride 5 mg daily (8) COPD (chronic obstructive pulmonary disease): - No acute exacerbation appreciated - Albuterol BID and PRN Disposition: Await echo to assess cardiac possibilities; appearance/description of symptoms suggests possibility of infectious process but specific one not identified. Supervising Physician Co-Signing Physician Notes Attending Attestation - Chart reviewed in detail, care plan d/w HUNTER Mccarty. I agree w/ the betancourt components of her documentation. Patient presented with leukocytosis, chills, and simply not feeling well. Presentation most c/w some form of illness; thus far work-up has been negative. Check flu PCR. Recheck cxr. Consider RUQ u/s (has known gallstones) to r/o developing cholecystitis. Cannot fully r/o an ACS although less likely. Blood cx's are thus far negative. Leukocytosis is improving without antibiotic therapy. Cont to monitor. Compa Delatorre MD Subjective Reports feeling better today just hungry. Only had one episode of vomiting prior to admission, no abdominal pain no diarrhea. No other sick contacts. No specific infectious cause found but did have an elevated WBC on admission which is nearly resolved. Flu negative. CT with likely atelectic changes but will add procalcitonin to assess. Does complain of acute on chronic L thigh/hip pain which does not seem to radiate. No lesions noted but maybe should watch for shingles Review of Systems Constitutional: no fever, no chills, no fatigue, no weakness and no anorexia Eyes: no worsening vision Ear, Nose, Mouth, Throat: no nasal congestion and no sore throat Respiratory: no cough and no dyspnea Cardiovascular: no chest pain, no lightheadedness and no edema Gastrointestinal: no abdominal pain, no nausea, no vomiting, no constipation and no diarrhea/loose stools Genitourinary: no dysuria Musculoskeletal: + joint pain (L hip) Integumentary: no rash Physical Exam Constitutional: WD/WN, vitals as above Eyes: + anicteric sclerae ENMT: Ears: no hearing impairment Neck: trachea midline Respiratory: normal respiratory effort, lungs clear to auscultation Ausc ultation: + diminished lung sounds Cardiovascular: RRR, no murmur, no edema Gastrointestinal (Abdomen): Inspection/Auscultation: normal bowel sounds Percussion/Palpation: abdomen soft; abdomen nontender Musculoskeletal: Head/Neck/Chest: normocephalic and head atraumatic pain not reproducible to palp of the L hip. no rash or lesions to suggest shingles Skin: no rashes, warm and dry Neurologic: moves all extremities Psychiatric: A+Ox3, euthymic affect Results & Data Vital Signs (Past 12 Hours) Vital Signs Temp Pulse Pulse Resp BP BP Pulse Ox 06/20/19 15:47 46 L 06/20/19 15:00 36.5 C 59 L 18 108/66 98 06/20/19 11:00 36.4 C L 45 L 18 91/49 L 97/54 L 96 06/20/19 08:40 52 L 06/20/19 07:39 77 18 98 06/20/19 07:00 36.7 C 56 L 18 106/65 95 PG Care Time/CCT Total # of Minutes Spent Total Time Spent with Patient: Total time spent is greater than 50% in coordin ation of care (as documented) at patient's floor/unit and/or counseling patient: (1) BPH (benign prostatic hyperplasia) Lower urinary tract symptom presence: symptoms absent Qualified Code(s): N40.0 - Benign prostatic hyperplasia without lower urinary tract symptoms (2) CAD (coronary artery disease) Associated angina: without angina Coronary Disease-Associated Artery/Lesion type: robinson artery [place] vs. transplanted heart: robinson heart Qualified Code(s): I25.10 - Atherosclerotic heart disease of robinson coronary artery without angina pectoris (3) COPD (chronic obstructive pulmonary disease) COPD type: unspecified COPD Qualified Code(s): J44.9 - Chronic obstructive pulmonary disease, unspecified (4) GERD (gastroesophageal reflux disease) Esophagitis presence: without esophagitis Qualified Code(s): K21.9 - Gastro- esophageal reflux disease without esophagitis
[2019-06-20] MEDS ORDERED: FINASTERIDE 5 MG TAB PO SCH (21:00)
[2019-06-20] MEDS ORDERED: TAMSULOSIN HCL 0.4 MG CAP PO SCH (21:00)
[2019-06-20] MEDS ORDERED: ATORVASTATIN 40 MG TAB PO SCH (21:00)
[2019-06-21 06:54] LABS: Hematocrit (blood only) 34.6 % (42-52); Hemoglobin 10.9 g/dL (14.0-18.0); Mean Corpuscular Hemoglobin 26.3 pg (25-34); Mean Corpuscular Hgb Conc 31.5 g/dL (32-36); Mean Corpuscular Volume 83.6 fL (80-100); Mean Platelet Volume 9.3 fL (7.4-10.4); Platelet Count 168 K/uL (130-400); RDW Coefficient of Variation 15.8 % (11.5-14.5); RDW Standard Deviation 48.4 fL (36.4-46.3); Red Blood Count 4.14 M/uL (4.7-6.1); White Blood Count 6.52 K/uL (4.8-10.8)
[2019-06-21] MEDS: ALBUT/IPRATROP 3MG/0.5MG NEB 3 ML VIAL NEB SCH (07:09)
[2019-06-21 07:29] LABS: BUN Creatinine Ratio 21.3 (10-20); Calcium 8.4 mg/dl (8.5-10.1); Creatinine Clr Calc Pharmacy 59.8 ml/min; Est GFR (African American) 86.9; Potassium 3.9 mmol/L (3.5-5.1)
[2019-06-21] MEDS: CLOPIDOGREL BISULFATE 75 MG TAB PO SCH (07:39)
[2019-06-21] MEDS: APIXABAN 5 MG TABLET PO SCH (07:39)
[2019-06-21] MEDS: carvediloL 12.5 MG TAB PO SCH (07:39)
[2019-06-21] MEDS: PANTOprazole 40 MG TAB PO SCH (07:40)
[2019-06-21] MEDS: POTASSIUM CHLORIDE 20 MEQ TABCR PO SCH (07:40)
--- NOTE | 2019-06-21 07:43 | XRay Report ---
XR chest 1V portable CLINICAL HISTORY: 89 years-old Male presenting with SOB/Infiltrate/Fluid?. TECHNIQUE: Portable upright AP view of the chest was obtained. COMPARISON: 06/19/2019. FINDINGS: Atherosclerosis of the aortic arch. Cardiac silhouette enlarged. Right greater than left pleural effu sions and bibasilar opacities. The appearance is unchanged from prior. Slight decrease in interstitia l prominence. No pneumothorax. Degenerative changes of the thoracic spine. Osteopenia. Degenerative c hanges of the glenohumeral joints. Upper abdomen normal. IMPRESSION: 1. Cardiomegaly with slightly decreased congestive change. 2. Chronic right greater than left pleural effusions and bibasilar atelectasis. ACT 112: Negative or not required by law. Electronically signed by: Yusuf Beasley M.D. 06/21/2019 7:41 AM
[2019-06-21 11:01] LABS: Influenza A virus by PCR Neg for Influ A (Neg); Influenza B virus by PCR Neg for Influ B (Neg)
--- NOTE | 2019-06-21 18:46 | Discharge Summary ---
Date of Service June 21, 2019 Admission HPI Per Admitting Provider 89 y/o male presented to the ED with weakness, N/V, and cold chills. Daughter reports that the patient stayed in bed all day today which is unlike him. The patient lives alone and is concerned that he may get dehydrated as he continued taking his usual diuretic. No diarrhea he had a normal bm today. As I was seeing the patient he felt that he had SOB with speaking. He has had intermittent chest pain over the past few days, but does not have now. No cough or abdominal pain. He reports taking Eliquis for a-flutter. . The patient states that his PCP is Dr. Kline at the [facility] and that his financial sales professional is Dr. Hernandez. Principal Diagnosis Generalized Illness; Elevated Troponin Discharge Exam Constitutional WD/WN, vitals as above Eyes + anicteric sclerae ENMT Ears: no hearing impairment Neck trachea midline Respiratory normal respiratory effort, lungs clear to auscultation Auscultation: + diminished lung sounds Cardiovascular RRR, no murmur, no edema Vessels: no JVD Gastrointestinal (Abdomen) Inspection/Auscultation: normal bowel sounds Percussion/Palpation: abdomen soft; abdomen nontender Musculoskeletal Head/Neck/Chest: normocephalic and head atraumatic Skin no rashes, warm and dry Neurologic moves all extremities Psychiatric A+Ox3, euthymic affect Discharge Data Allergies Allergy/AdvReac Type Severity Reaction Status Date / Time aspirin AdvReac Intermediate GI Verified 06/19/19 21:15 ULCERATION- WHEN TAKEN WITH COUMADIN black pepper AdvReac Mild Prostate Verified 06/19/19 21:15 problems lisinopril AdvReac Mild Cough Verified 06/19/19 21:15 Sulfa (Sulfonamide AdvReac Unknown "SULFA Verified 06/19/19 21:15 Antibiotics) DRUGS": HAS TOLERATED LASIX IN PAST Consultations 06/19/19 22:13 ED Decision to Admit Stat Ordered Studies 06/19/19 23:06 CT chest wo con Urgent Hospital Course (1) Nausea & vomiting: - RESOLVED - Only one episode of vomiting - daughter states he tends to feel weak and ill when he has swings in his volume status. He has been taking extra Bumex due to lower extremity edema and weight gain so possibly got slightly dry causing illness-like symptoms? - Given lack of ongoing symptoms this is unlikely gastroenteritis; no diarrhea, no fevers, no sick contacts - Did have a WBC of 17 on admission and nearly normalized at 10.81 and now 6.5 without antibiotics - currently cannot explain this findings; procalcitonin negative - Influenza swap and PCR neg; repeat CXR without pneumonia; urine unremarkable; skin unremarkable - question if there is still a unidentified infectious process vs transient - Symptoms may have correlated some with some volume depletion given Bumex? did gently hydrate but given H/O fluid overload did monitor off fluid and off Bumex. Overall appears euvolemic and is near dry weight and patient reports he is to only take an extra dose when over 185 lb and currently at 183 lbs. Echo supports some volume overload however (2) Weakness: - Maybe from dehydration; some from his leg pain?; unidentified infection? - PT/OT - cleared for home with services (3) Chronic diastolic (congestive) heart failure: - CT - unchanged trace L and moderate R pleural effusion with mild atelectasis of LLL with dependent consolidation of RLL which is also stable - suggests this is compressive atelectasis; no overt pulmonary edema; L > R bilateral tree-in-bud nodules either infectious or inflammatory bronchiolitis; irregular consolidative opacity of RML likely atelectasis but will need followed; stable 4 mm stable - Does no appear in exacerbation at this time - as discussed above bacterial etiology not really appreciated at this time - If breathing continues to be a problem may benefit from thoracentesis depending on amount of fluid actually present and discussed this can be done as outpatient if needed (4) CAD (coronary artery disease): - Trops slightly elevated at 0.059 and 0.065 and now trending down to 0.050 - possibly demand ischemia vs maybe a mild cardiac event? Which could have explained the bump in the WBC and his symptoms? -- Discussed this possibility. Patient has had numerous cardiac procedures and states he would not want a heart catheterization and therefore would recommend continue medical management and continued cardiac F/U as outpatient - Continue Atorvastatin 40 mg daily, Plavix 75 mg daily -- He did have soft blood pressures in-house and stable bradycardia - did have to hold his carvedilol overnight due to lower BP and set parameters which resulted in better BPs this AM on day of discharge -- Discussed trial of 6.25 mg BID and trend BP - maybe lower BP was the culprit of his symptoms and may explain some of the demand ischemia? he does well with tracking his BP and this can be adjusted pending response (5) GERD (gastroesophageal reflux disease): - Continue Omeprazole (6) Atrial flutter: - Stable - Eliquis 5 mg BID; Carvedilol BID as discussed (7) BPH (benign prostatic hyperplasia): - Continue Flomax 0.4 mg daily and Finasteride 5 mg daily (8) COPD (chronic obstructive pulmonary disease): - No acute exacerbation appreciated - Albuterol BID and PRN Disposition: Will discuss with Nisha Luther PA-C as she follows him in CHF clinic; case management to call [facility] to resume services Total Time Total Time Spent Total Time Spent (In Minutes): Greater than 30 minutes Discharge Plan Discharge Items Patient Disposition: Home - [facility] Reason For Visit: VIRAL GASTROENTERITIS, LEUKOCYTOSIS Discharge Diagnosis: Weakness/Vomiting Activity: Resume your previous activity Non-emergency contact: Primary Care Provider and Dock Operations Supervisor Call non-emergency contact if: you have any medication questions, your symptoms worsen and you have a fever Follow-up/Referrals: Sugey Daley PA-C [Primary Care Provider] - Diet: Heart Healthy and Low Sodium (2gm) Addtl Attending Provider Instructions: Vomiting/Illness: - It is not certain what the cause of your symptoms were. It is possible this was a rapid onset of a viral illness that resolved itself vs some dehydration. - Given only one episode of vomiting and no diarrhea it would be unlikely to be the stomach bug - Your imaging does not show pneumonia, your blood cultures do not have infection, your urine doesnt have bacteria in it. Your skin looks good. Your flu swap was negative - You had an elevated white blood cell count but this returned to normal without antibiotics. I cannot explain this. As well we have not captured any fevers and you are feeling back to your normal self - However, this is the time of the year for multiple illness and being in the hospital can get you exposed to infections like pneumonia, flu, the common cold. So watch for any worsening breathing issues, coughing, fevers, diarrhea, and so on. Blood Pressure: - Maybe with the increased Bumex and your Coreg, maybe it brought your blood pressure down lower causing you to feel more ill. While having a lower blood pressure last night we did hold one dose of the coreg and your blood pressure has been much better this morning. Maybe for the time being the current dose might be too much. - Recommend using Carvedilol 6.25 mg twice a day and continue to watch your blood pressure as you have. Chronic Diastolic Heart Failure: - Overall you look largely at a good water status but there is what is called pleural effusions (this is fluid on the outside of your lungs) it is stable but definitely can cause shortness of breath. If it gets more bothersome you may benefit from draining it (thoracentesis). Your heart doctor or family doctor could help arrange this. One doctor in the area that does this is Dr. Thomas and he is through [facility]. However your oxygen levels are great so it may be best to just watch this for the time being - Continue to do the daily weights and adjusting your water pill as instructed by Nisha Luther your heart doctor. You are doing a great job of this and watching your weights so keep this up. - You can continue your Bumex as previously prescribed. I will discuss with Nisha Luther tomorrow when she returns back to the hospital so you may get a follow-up call from her. Elevated Troponin: - This is a cardiac marker we look at to assess if something is irritating the heart. Sometimes extra stress can cause troponin to be higher in the blood (such as illness) but heart attacks can cause this as well - We are not seeing signs of a heart attack but could this have been a small cardiac event it could be possible given we cannot find another reason for your symptoms - This number trending down so not a big event would have occurred. Given your history of multiple heart surgeries you may always have a little bump in this number and that can be your normal - Ultimately the next step to consider would be a catheterization and as discussed you are not interested in this. Continue to follow with your heart doctor and can alway discuss further monitoring or plan as needed Nodule: - You have a small 4 mm nodule that is unchanged from December 2017 and will just need to keep an eye on this - You have a 3.9 x 2.2 cm area in the right middle lobe that looks like atelectasis (where the little airways get pushed down) however recommend having a follow-up imaging to relook at this in the near future to make sure it is nothing else. Just like nodules it is important to monitor size or changes and this can be arranged by your family doctor. Pending Studies at Discharge: No Stand-Alone Forms: My [facility], Smoking Cessation Medications and DC Order Prescriptions: New Combivent Respimat 20-100 mcg/actuation Mist 1 puff INHALATION BID Qty: 4 RF: 0 Continued Eliquis 5 mg tablet 5 mg PO BID Qty: 180 RF: 3 atorvastatin 40 mg Tablet 40 mg PO QPM RF: 0 clopidogrel [Plavix] 75 mg Tablet 75 mg PO QAM RF: 0 tamsulosin [Flomax] 0.4 mg Capsule 0.4 mg PO QPM RF: 0 omeprazole 20 mg Capsule,Delayed Release(Dr/Ec) 20 mg PO QAM RF: 0 finasteride 5 mg Tablet 5 mg PO QPM RF: 0 nitroglycerin 0.4 mg tablet, sublingual 0.4 mg sublingual DIRECTED PRN (Reason: Chest Pain) RF: 0 potassium chloride [Klor-Con M20] 20 mEq tablet,ER particles/crystals 20 meq PO QAM RF: 0 bumetanide 1 mg tablet 2 mg PO QAM RF: 0 Changed carvedilol 12.5 mg tablet 6.25 mg PO BID 30 Days Qty: 30 RF: 0 Discharge Orders: Discharge Order (Routine); Ordered 06/21/19 Ordered By: Ninoska Horner/Other Patient Handouts: Ipratropium Willis Albuterol Sulfate Inhaler Admission Data Admit Date/Time: 06/19/19 23:06 Attending Provider: Compa Delatorre Admit Provider: Marlo Silva Primary Care Provider: Sugey Daley Other Providers: Marlo Silva Other Interventions: Discharge Summary Assessment (RN) Last Done: 06/21/19 16:03 DC Date/Time DO NOT enter until pt leaves facility: 06/21/19 18:01
[2019-06-21] MEDS ORDERED: carvediloL 6.25 MG TAB PO SCH (21:00)
== END 2019-06-21 18:01 | disposition home or self-care (01) | DRG 392 ==
LOC: ED 20:07 → 2N 23:06 → SUATTDRO 23:06 → 2N 23:39

== ENCOUNTER 2020-01-09 13:29 | Inpatient (IN) ==
[2020-01-09] MEDS ORDERED: ACETAMINOPHEN 1,000 MG/100 ML VIAL IV STA (13:37)
[2020-01-09] MEDS ORDERED: ONDANSETRON INJ 2 MG/ML 2 ML VIAL IV STA (13:38)
[2020-01-09] MEDS ORDERED: ALBUTEROL HFA 8 GM INHALER INH ONE (14:10)
--- NOTE | 2020-01-09 14:11 | Emergency Department Note ---
History of Present Illness General Chief complaint: Illness Stated complaint: Fever, SOB, Dizzy, Weakness Time Seen by Provider: 01/09/20 13:33 History of Present Illness Provider complaint: Shortness of breath, fever Onset (ago): day(s) 2 Associated symptoms: + cough, + fever/chills and + malaise; no chest pain 89-year-old male presents emergency department from home. Patient has been having cough fever and weakness. He also reports shortness of breath. No hemoptysis. No chest pain. No abdominal pain. Home Medications Home Medications Medication Instructions Recorded Confirmed Type atorvastatin 40 mg PO QPM 08/24/18 01/09/20 History clopidogrel [Plavix] 75 mg PO QAM 08/24/18 01/09/20 History finasteride 5 mg PO QPM 08/24/18 01/09/20 History omeprazole 20 mg PO QAM 08/24/18 01/09/20 History tamsulosin [Flomax] 0.4 mg PO QPM 08/24/18 01/09/20 History nitroglycerin 0.4 mg sublingual 0.4 mg SUBLINGUAL DIRECTED PRN 01/27/19 01/09/20 History tablet tab apixaban 5 mg tablet 5 mg PO BID #180 tab 02/06/19 01/09/20 Rx potassium chloride [Klor-Con M20] 20 meq PO QAM 06/19/19 01/09/20 History Combivent Respimat 1 puff INHALATION BID #4 gm 06/21/19 01/09/20 Rx carvedilol 6.25 mg tablet 6.25 mg PO BID #180 tab 06/29/19 01/09/20 Rx bumetanide 2 mg PO QAM 01/09/20 01/09/20 History Allergies Allergy/AdvReac Type Severity Reaction Status Date / Time aspirin AdvReac Intermediate GI Verified 01/09/20 17:08 ULCERATION- WHEN TAKEN WITH COUMADIN black pepper AdvReac Mild Prostate Verified 01/09/20 17:08 problems lisinopril AdvReac Mild Cough Verified 01/09/20 17:09 Sulfa (Sulfonamide AdvReac Unknown "SULFA Verified 07/29/19 09:57 Antibiotics) DRUGS": HAS TOLERATED LASIX IN PAST Past Med/Surg History Medical History Atrial fibrillation (Chronic) BPH (benign prostatic hyperplasia) CAD (coronary artery disease) (Chronic) CHF (congestive heart failure) (Resolved) Chronic diastolic (congestive) heart failure COPD (chronic obstructive pulmonary disease) Hyperlipidemia Hypertension (Chronic) 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 Mitral valve disorder (Chronic) Paroxysmal atrial flutter Proteus mirabilis infection Streptococcal infection Wound of right foot Surgical History 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 Family History Father Asthma Heart disease Mother Leukemia Social History Smoking Status: Former smoker Cigarettes Per Day: 20-40; Second Hand Exposure: No; Do You Dip or Chew Tobacco: No; Tobacco Cessation Education Requested by Patient: No Hx Alcohol Use: No Hx Substance Use: No Preferred Language: Amharic Communication Ability: Effective Monotype Keyboard Operator Required: No Beliefs That Will Affect Care: None marital status: / Current Living Situation: Alone current occupational status: retired current occupation: worked 18 years at [employer] in [place]; served in [employer] Other Information That Helps Us Care for You: No other: lives alone in [place]; has 2 children Feels Safe at Home: Yes Safety Concerns: Feels Safe At This Time Review of Systems A total of 10 systems reviewed and were otherwise negative Physical Exam Vital Signs Vital Signs - 24 hr 01/09/20 13:54 01/09/20 14:06 01/09/20 14:14 Temperature 38.3 C H Temperature Source Oral Pulse Rate 81 81 81 Pulse Rate [Apical] Pulse Rate from SpO2 Sensor 81 80 Respiratory Rate 22 26 H 24 Respiratory Effort / Characteristics Blood Pressure 143/62 H 137/61 149/70 H Blood Pressure Mean 89 95 98 Pulse Oximetry 93 95 95 Oxygen Delivery Method Room Air High Flow Nasal Cannula High Flow Nasal Cannula Oxygen Flow Rate Fraction of Inspired Oxygen 28 28 Sepsis Recent Fever Within 48 Hours Yes Sepsis New/Unexplained Change in Mental Status No Sepsis Action Taken by Nursing Physician Notified 01/09/20 14:38 01/09/20 14:45 01/09/20 15:00 Temperature 37.9 C H Temperature Source Oral Pulse Rate 81 81 80 Pulse Rate [Apical] 80 Pulse Rate from SpO2 Sensor 81 81 80 Respiratory Rate 27 H 29 H 27 H Respiratory Effort / Characteristics Accessory Muscle Use Short of Breath Blood Pressure 139/67 154/72 H 131/63 Blood Pressure Mean 92 83 90 Pulse Oximetry 94 96 98 Oxygen Delivery Method High Flow Nasal Cannula High Flow Nasal Cannula High Flow Nasal Cannula Oxygen Flow Rate 25 Fraction of Inspired Oxygen 28 28 28 Sepsis Recent Fever Within 48 Hours Sepsis New/Unexplained Change in Mental Status Sepsis Action Taken by Nursing 01/09/20 15:15 01/09/20 15:30 01/09/20 15:46 Temperature Temperature Source Pulse Rate 80 79 79 Pulse Rate [Apical] Pulse Rate from SpO2 Sensor Respiratory Rate 22 22 23 Respiratory Effort / Characteristics Blood Pressure 122/59 L 114/57 L 120/63 Blood Pressure Mean 81 76 86 Pulse Oximetry 96 96 94 Oxygen Delivery Method High Flow Nasal Cannula High Flow Nasal Cannula Other High Flow Nasal Cannula Oxygen Flow Rate Fraction of Inspired Oxygen 28 28 28 Sepsis Recent Fever Within 48 Hours Sepsis New/Unexplained Change in Mental Status Sepsis Action Taken by Nursing 01/09/20 16:00 01/09/20 16:09 01/09/20 16:15 Temperature 37.4 C Temperature Source Oral Pulse Rate 77 69 Pulse Rate [Apical] Pulse Rate from SpO2 Sensor 78 Respiratory Rate 23 23 Respiratory Effort / Characteristics Blood Pressure 107/54 L 104/52 L Blood Pressure Mean 75 66 Pulse Oximetry 93 93 94 Oxygen Delivery Method High Flow Nasal Cannula High Flow Nasal Cannula High Flow Nasal Cannula Oxygen Flow Rate Fraction of Inspired Oxygen 28 28 28 Sepsis Recent Fever Within 48 Hours Sepsis New/Unexplained Change in Mental Status Sepsis Action Taken by Nursing 01/09/20 16:30 01/09/20 16:39 01/09/20 16:45 Temperature Temperature Source Pulse Rate 62 62 Pulse Rate [Apical] Pulse Rate from SpO2 Sensor Respiratory Rate 23 22 22 Respiratory Effort / Characteristics Blood Pressure 103/51 L 100/55 L Blood Pressure Mean 75 68 Pulse Oximetry 91 91 Oxygen Delivery Method High Flow Nasal Cannula High Flow Nasal Cannula High Flow Nasal Cannula Oxygen Flow Rate Fraction of Inspired Oxygen 28 Sepsis Recent Fever Within 48 Hours Sepsis New/Unexplained Change in Mental Status Sepsis Action Taken by Nursing 01/09/20 16:50 01/09/20 17:00 01/09/20 17:15 Temperature Temperature Source Pulse Rate 71 60 65 Pulse Rate [Apical] Pulse Rate from SpO2 Sensor 71 Respiratory Rate 19 20 20 Respiratory Effort / Characteristics Blood Pressure 99/49 L 101/53 L Blood Pressure Mean 64 70 Pulse Oximetry 90 93 95 Oxygen Delivery Method High Flow Nasal Cannula Nasal Cannula Oxygen Flow Rate 3 Fraction of Inspired Oxygen Sepsis Recent Fever Within 48 Hours Sepsis New/Unexplained Change in Mental Status Sepsis Action Taken by Nursing 01/09/20 17:30 Temperature Temperature Source Pulse Rate 59 L Pulse Rate [Apical] 80 Pulse Rate from SpO2 Sensor Respiratory Rate 22 Respiratory Effort / Characteristics Non-Labored Spontaneous Blood Pressure 106/54 L Blood Pressure Mean 73 Pulse Oximetry 98 Oxygen Delivery Method Nasal Cannula Oxygen Flow Rate 3 Fraction of Inspired Oxygen Sepsis Recent Fever Within 48 Hours Sepsis New/Unexplained Change in Mental Status Sepsis Action Taken by Nursing Physical Exam EYES: Conjunctivae and EOM are normal. Pupils are equal, round, and reactive to light. Right eye exhibits no discharge. Left eye exhibits no discharge. No scleral icterus. NECK: Normal range of motion. Neck supple. No JVD present. No spinous process tenderness present. No carotid bruit present. No rigidity. No tracheal deviation and normal range of motion present. No Brudzinski's sign and no Kernig's sign noted. CV: Tachycardic rate, regular rhythm, normal heart sounds and intact distal pulses. There is no peripheral edema. Palpable radial pulses bue. PULM/CHEST: Tachypneic. Rhonchi bilaterally. ABD: The abdomen is soft. Bowel sounds are normal. He has no distension. No mass is present. There is no tenderness. There is no rebound, no guarding, no Gold's sign and no tenderness at McBurney's point. Rovsig negative. NEURO: He is alert and oriented to person, place, and time. He has normal strength. No cranial nerve deficit or sensory deficit. Course Course 1333: The patient was evaluated in room C9. A complete history and physical exam was performed. Cardiac monitoring: An order was placed for continuous cardiac monitoring. The monitor shows a rate of 100 with sinus rhythm 1410: tachypnic at 28 SaO2 stable. patient will be moved to negative pressure room to start hi flow O2 and be given albuterol puffs 1435: Patient removed to negative pressure room room A9. He will be started on high flow nasal cannula oxygen and Vapotherm. Patient continues to have tachypnea. His oxygen saturation is stable at this time. I did asked the patient if he would like to be intubated if need be however the patient states he does not want any resuscitative measures or to be intubated. The EMR was reviewed and the patient has orders for DNR/DNI on previous hospital admissions also. 1445: Patient's daughter Radha Marroquin called to speak with me [phone]. She confirmed that the patient is a DNR/DNI. She stated she does not think that the patient took any of his medications this morning. She states that the patient has no known contact with anyone who is COVID-19 positive or person of interest. 1535: Patient does appear more comfortable on the high flow nasal cannula Vapotherm. Patient has a leukocytosis of 16.9. Patient will be treated with Rocephin and azithromycin for pneumonia given his fever and tachypnea. Administered Medications Albuterol (Duoneb) 3 ml NEB QIDR [facility] Stop: 02/08/20 18:59 Last Admin: 01/09/20 19:40 Dose: 3 ml Documented by: [id number] Discontinued Medications Albuterol (Ventolin Hfa) 4 puffs INH NOW ONE Stop: 01/09/20 14:11 Last Admin: 01/09/20 14:44 Dose: 4 puffs Documented by: [id number] Acetaminophen (Ofirmev) 1,000 mg in 100 mls @ 400 mls/hr IV NOW STA Stop: 01/09/20 13:51 Last Infusion: 01/09/20 15:14 Dose: 0 mls/hr Documented by: [id number] Admin: 01/09/20 14:44 Dose: 400 mls/hr Documented by: [id number] Sodium Chloride (Nss 1000ml) 1,000 mls @ 80 mls/hr IV .[id number] [id number] Stop: 02/08/20 14:29 Last Infusion: 01/09/20 17:20 Dose: 0 mls/hr Documented by: [id number] Admin: 01/09/20 14:44 Dose: 80 mls/hr Documented by: [id number] Ceftriaxone Sodium (Rocephin) 1,000 mg in 50 mls @ 100 mls/hr IV NOW STA Stop: 01/09/20 16:00 Last Infusion: 01/09/20 16:25 Dose: 0 mls/hr Documented by: [id number] Admin: 01/09/20 15:55 Dose: 100 mls/hr Documented by: [id number] Azithromycin 500 mg/ Dextrose 255 mls @ 125 mls/hr IV ONE ONE Stop: 01/09/20 17:33 Last Infusion: 01/09/20 18:05 Dose: 0 mls/hr Documented by: [id number] Admin: 01/09/20 16:05 Dose: 125 mls/hr Documented by: [id number] Methylprednisolone 60 mg/ (Syringe) 0.96 mls @ 1.5 mls/min IV NOW ONE Stop: 01/09/20 17:46 Last Admin: 01/09/20 17:58 Dose: 1.5 mls/min Documented by: [id number] Ondansetron HCl (Zofran) 4 mg IV NOW STA Stop: 01/09/20 13:39 Last Admin: 01/09/20 14:44 Dose: 4 mg Documented by: [id number] Critical Care Time Critical Care Time: Yes Total Critical Care Time: 59 I have personally spent greater than 59 minutes of critical care time in the direct management of this patient. This includes bedside care, interpretation of diagnostic studies, and testing, discussion with consultants, patient, and family members, and other required patient management activities. This 59 minutes is in excess of all separately billable procedures. Medical Decision Making Laboratory Data Result diagrams: 01/09/20 14:40 01/09/20 16:00 Lab Results 01/09/20 01/09/20 01/09/20 Range/Units 14:40 14:40 14:40 WBC 16.91 H (4.8-10.8) K/uL RBC 5.01 (4.7-6.1) M/uL Hgb 13.0 L (14.0-18.0) g/dL POC Hgb (14.0-18.0) g/dl Hct 40.4 L (42-52) % POC Hct (42-52) % MCV 80.6 (80-100) fL MCH 25.9 (25-34) pg MCHC 32.2 (32-36) g/dL RDW Std Deviation 47.7 H (36.4-46.3) fL RDW Coeff of Michelle 16.4 H (11.5-14.5) % Plt Count 260 (130-400) K/uL MPV 9.8 (7.4-10.4) fL Immature Gran % (Auto) 0.3 % Neut % (Auto) 89.1 % Lymph % (Auto) 3.5 % [place] % (Auto) 6.8 % Eos % (Auto) 0.2 % Baso % (Auto) 0.1 % Neut # (Auto) 15.06 H (1.4-6.5) K/uL Lymph # (Auto) 0.60 L (1.2-3.4) K/uL [place] # (Auto) 1.15 H (0.11-0.59) K/uL Eos # (Auto) 0.03 (0-0.5) K/uL Baso # (Auto) 0.02 (0-0.2) K/uL Immature Gran # (Auto) 0.05 H (0.00-0.02) K/uL PT Cancelled INR Cancelled APTT Cancelled PTT Ratio Cancelled VBG pH (7.36-7.41) VBG pCO2 (38-50) mmHg VBG pO2 mmHg VBG HCO3 mmol/L VBG O2 Saturation % VBG Base Excess mEq/L Barometric Pressure mm/Hg POC Sodium (135-144) mmol/L Sodium 139 (136-145) mmol/L POC Potassium (3.3-5.0) mmol/L Potassium (3.5-5.1) mmol/L POC Chloride (101-112) mmol/L Chloride 108 H (98-107) mmol/L Carbon Dioxide 27 (21-32) mmol/L POC Total CO2 (24-31) mmol/L Anion Gap 4.0 (3-11) POC Anion Gap (16-25) mmol/L POC BUN (7-18) mg/dl BUN 16 (7-18) mg/dl Creatinine 1.15 (0.6-1.4) mg/dl POC Creatinine (0.6-1.3) mg/dl Est Cr Clr Drug Dosing 47.3 ml/min Est GFR ( Amer) 65.5 Est GFR (Non-Af Amer) 56.5 BUN/Creatinine Ratio 13.6 (10-20) Glucose 102 H (70-99) mg/dl POC Glucose (other) (70-99) mg/dl Lactate (0.4-2.0) mmol/L Calcium 8.6 (8.5-10.1) mg/dl POC Ioniz Calcium Karla (1.12-1.32) mmol/l Magnesium (1.8-2.4) mg/dl Total Bilirubin 1.0 (0.2-1) mg/dl AST (15-37) U/L ALT 25 (12-78) U/L Alkaline Phosphatase 72 (45-117) U/L Troponin I (0-0.045) ng/ml NT-Pro-B Natriuret Pep 446 (0-1800) pg/ml Total Protein 6.2 L (6.4-8.2) gm/dl Albumin 2.6 L (3.4-5.0) gm/dl Globulin 3.6 (2.5-4.0) gm/dl Albumin/Globulin Ratio 0.7 L (0.9-2) Procalcitonin (0-0.5) ng/ml Urine Color Urine Appearance (Clear) Urine pH (4.5-7.5) Ur Specific [place] (1.000-1.030) Urine Protein (Negative) Urine Glucose (UA) (Negative) Urine Ketones (Negative) Urine Blood (Negative) Urine Nitrite (Negative) Urine Bilirubin (Negative) Urine Urobilinogen (Negative) Ur Leukocyte Esterase (Negative) Urine WBC (Auto) (0-5) /hpf Urine RBC (Auto) (0-4) /hpf U Hyaline Cast (Auto) (0-5) /lpf U Epithel Cells (Auto) (0-5) /lpf Urine Bacteria (Auto) (Negative) Adenovirus (PCR) (NotDetected) B. pertussis DNA (PCR) (NotDetected) B.parapertussis DNA PCR (NotDetected) C. pneumoniae DNA (PCR) (NotDetected) Coronavirus OC43 (PCR) (NotDetected) Coronavirus HKU1 (PCR) (NotDetected) Coronavirus 229E (PCR) (NotDetected) COVID-19 Eval Order COVID-19 PCR (Negative) Coronavirus NL63 (PCR) (NotDetected) Human Metapneumovir PCR (NotDetected) Influenza Type A (PCR) (NotDetected) Influenza Type B (PCR) (NotDetected) M. pneumoniae (PCR) (NotDetected) Parainfluenza 1 (PCR) (NotDetected) Parainfluenza 2 (PCR) (NotDetected) Parainfluenza 3 (PCR) (NotDetected) Parainfluenza 4 (PCR) (NotDetected) RSV (PCR) (NotDetected) Entero/Rhino (PCR) (NotDetected) 01/09/20 01/09/20 01/09/20 Range/Units 14:40 14:40 14:53 WBC (4.8-10.8) K/uL RBC (4.7-6.1) M/uL Hgb (14.0-18.0) g/dL POC Hgb (14.0-18.0) g/dl Hct (42-52) % POC Hct (42-52) % MCV (80-100) fL MCH (25-34) pg MCHC (32-36) g/dL RDW Std Deviation (36.4-46.3) fL RDW Coeff of Michelle (11.5-14.5) % Plt Count (130-400) K/uL MPV (7.4-10.4) fL Immature Gran % (Auto) % Neut % (Auto) % Lymph % (Auto) % [place] % (Auto) % Eos % (Auto) % Baso % (Auto) % Neut # (Auto) (1.4-6.5) K/uL Lymph # (Auto) (1.2-3.4) K/uL [place] # (Auto) (0.11-0.59) K/uL Eos # (Auto) (0-0.5) K/uL Baso # (Auto) (0-0.2) K/uL Immature Gran # (Auto) (0.00-0.02) K/uL PT INR APTT PTT Ratio VBG pH 7.42 H (7.36-7.41) VBG pCO2 42 (38-50) mmHg VBG pO2 22 mmHg VBG HCO3 27 mmol/L VBG O2 Saturation < 60.0 % VBG Base Excess 2.3 mEq/L Barometric Pressure 735.5 mm/Hg POC Sodium (135-144) mmol/L Sodium (136-145) mmol/L POC Potassium (3.3-5.0) mmol/L Potassium (3.5-5.1) mmol/L POC Chloride (101-112) mmol/L Chloride (98-107) mmol/L Carbon Dioxide (21-32) mmol/L POC Total CO2 (24-31) mmol/L Anion Gap (3-11) POC Anion Gap (16-25) mmol/L POC BUN (7-18) mg/dl BUN (7-18) mg/dl Creatinine (0.6-1.4) mg/dl POC Creatinine (0.6-1.3) mg/dl Est Cr Clr Drug Dosing ml/min Est GFR ( Amer) Est GFR (Non-Af Amer) BUN/Creatinine Ratio (10-20) Glucose (70-99) mg/dl POC Glucose (other) (70-99) mg/dl Lactate 1.5 (0.4-2.0) mmol/L Calcium (8.5-10.1) mg/dl POC Ioniz Calcium Karla (1.12-1.32) mmol/l Magnesium (1.8-2.4) mg/dl Total Bilirubin (0.2-1) mg/dl AST (15-37) U/L ALT (12-78) U/L Alkaline Phosphatase (45-117) U/L Troponin I (0-0.045) ng/ml NT-Pro-B Natriuret Pep (0-1800) pg/ml Total Protein (6.4-8.2) gm/dl Albumin (3.4-5.0) gm/dl Globulin (2.5-4.0) gm/dl Albumin/Globulin Ratio (0.9-2) Procalcitonin (0-0.5) ng/ml Urine Color Dark Yellow Urine Appearance Clear (Clear) Urine pH 6.5 (4.5-7.5) Ur Specific [place] 1.022 (1.000-1.030) Urine Protein Trace H (Negative) Urine Glucose (UA) Negative (Negative) Urine Ketones Trace H (Negative) Urine Blood Negative (Negative) Urine Nitrite Negative (Negative) Urine Bilirubin Negative (Negative) Urine Urobilinogen Negative (Negative) Ur Leukocyte Esterase 1+ H (Negative) Urine WBC (Auto) 5-10 H (0-5) /hpf Urine RBC (Auto) 5-10 H (0-4) /hpf U Hyaline Cast (Auto) 1-5 (0-5) /lpf U Epithel Cells (Auto) 10-20 H (0-5) /lpf Urine Bacteria (Auto) Negative (Negative) Adenovirus (PCR) (NotDetected) B. pertussis DNA (PCR) (NotDetected) B.parapertussis DNA PCR (NotDetected) C. pneumoniae DNA (PCR) (NotDetected) Coronavirus OC43 (PCR) (NotDetected) Coronavirus HKU1 (PCR) (NotDetected) Coronavirus 229E (PCR) (NotDetected) COVID-19 Eval Order COVID-19 PCR (Negative) Coronavirus NL63 (PCR) (NotDetected) Human Metapneumovir PCR (NotDetected) Influenza Type A (PCR) (NotDetected) Influenza Type B (PCR) (NotDetected) M. pneumoniae (PCR) (NotDetected) Parainfluenza 1 (PCR) (NotDetected) Parainfluenza 2 (PCR) (NotDetected) Parainfluenza 3 (PCR) (NotDetected) Parainfluenza 4 (PCR) (NotDetected) RSV (PCR) (NotDetected) Entero/Rhino (PCR) (NotDetected) 01/09/20 01/09/20 01/09/20 Range/Units 14:53 14:53 14:53 WBC (4.8-10.8) K/uL RBC (4.7-6.1) M/uL Hgb (14.0-18.0) g/dL POC Hgb (14.0-18.0) g/dl Hct (42-52) % POC Hct (42-52) % MCV (80-100) fL MCH (25-34) pg MCHC (32-36) g/dL RDW Std Deviation (36.4-46.3) fL RDW Coeff of Michelle (11.5-14.5) % Plt Count (130-400) K/uL MPV (7.4-10.4) fL Immature Gran % (Auto) % Neut % (Auto) % Lymph % (Auto) % [place] % (Auto) % Eos % (Auto) % Baso % (Auto) % Neut # (Auto) (1.4-6.5) K/uL Lymph # (Auto) (1.2-3.4) K/uL [place] # (Auto) (0.11-0.59) K/uL Eos # (Auto) (0-0.5) K/uL Baso # (Auto) (0-0.2) K/uL Immature Gran # (Auto) (0.00-0.02) K/uL PT INR APTT PTT Ratio VBG pH (7.36-7.41) VBG pCO2 (38-50) mmHg VBG pO2 mmHg VBG HCO3 mmol/L VBG O2 Saturation % VBG Base Excess mEq/L Barometric Pressure mm/Hg POC Sodium (135-144) mmol/L Sodium (136-145) mmol/L POC Potassium (3.3-5.0) mmol/L Potassium (3.5-5.1) mmol/L POC Chloride (101-112) mmol/L Chloride (98-107) mmol/L Carbon Dioxide (21-32) mmol/L POC Total CO2 (24-31) mmol/L Anion Gap (3-11) POC Anion Gap (16-25) mmol/L POC BUN (7-18) mg/dl BUN (7-18) mg/dl Creatinine (0.6-1.4) mg/dl POC Creatinine (0.6-1.3) mg/dl Est Cr Clr Drug Dosing ml/min Est GFR ( Amer) Est GFR (Non-Af Amer) BUN/Creatinine Ratio (10-20) Glucose (70-99) mg/dl POC Glucose (other) (70-99) mg/dl Lactate (0.4-2.0) mmol/L Calcium (8.5-10.1) mg/dl POC Ioniz Calcium Karla (1.12-1.32) mmol/l Magnesium (1.8-2.4) mg/dl Total Bilirubin (0.2-1) mg/dl AST (15-37) U/L ALT (12-78) U/L Alkaline Phosphatase (45-117) U/L Troponin I (0-0.045) ng/ml NT-Pro-B Natriuret Pep (0-1800) pg/ml Total Protein (6.4-8.2) gm/dl Albumin (3.4-5.0) gm/dl Globulin (2.5-4.0) gm/dl Albumin/Globulin Ratio (0.9-2) Procalcitonin (0-0.5) ng/ml Urine Color Urine Appearance (Clear) Urine pH (4.5-7.5) Ur Specific [place] (1.000-1.030) Urine Protein (Negative) Urine Glucose (UA) (Negative) Urine Ketones (Negative) Urine Blood (Negative) Urine Nitrite (Negative) Urine Bilirubin (Negative) Urine Urobilinogen (Negative) Ur Leukocyte Esterase (Negative) Urine WBC (Auto) (0-5) /hpf Urine RBC (Auto) (0-4) /hpf U Hyaline Cast (Auto) (0-5) /lpf U Epithel Cells (Auto) (0-5) /lpf Urine Bacteria (Auto) (Negative) Adenovirus (PCR) Not Detected (NotDetected) B. pertussis DNA (PCR) Not Detected (NotDetected) B.parapertussis DNA PCR Not Detected (NotDetected) C. pneumoniae DNA (PCR) Not Detected (NotDetected) Coronavirus OC43 (PCR) Not Detected (NotDetected) Coronavirus HKU1 (PCR) Not Detected (NotDetected) Coronavirus 229E (PCR) Not Detected (NotDetected) COVID-19 Eval Order Cancelled COVID-19 PCR NEGATIVE (Negative) Coronavirus NL63 (PCR) Not Detected (NotDetected) Human Metapneumovir PCR Not Detected (NotDetected) Influenza Type A (PCR) Not Detected (NotDetected) Influenza Type B (PCR) Not Detected (NotDetected) M. pneumoniae (PCR) Not Detected (NotDetected) Parainfluenza 1 (PCR) Not Detected (NotDetected) Parainfluenza 2 (PCR) Not Detected (NotDetected) Parainfluenza 3 (PCR) Not Detected (NotDetected) Parainfluenza 4 (PCR) Not Detected (NotDetected) RSV (PCR) Not Detected (NotDetected) Entero/Rhino (PCR) Not Detected (NotDetected) 01/09/20 01/09/2001/08/20 Range/Units 16:00 16:00 16:08 WBC (4.8-10.8) K/uL RBC (4.7-6.1) M/uL Hgb (14.0-18.0) g/dL POC Hgb 11.2 L (14.0-18.0) g/dl Hct (42-52) % POC Hct 33 L (42-52) % MCV (80-100) fL MCH (25-34) pg MCHC (32-36) g/dL RDW Std Deviation (36.4-46.3) fL RDW Coeff of Michelle (11.5-14.5) % Plt Count (130-400) K/uL MPV (7.4-10.4) fL Immature Gran % (Auto) % Neut % (Auto) % Lymph % (Auto) % [place] % (Auto) % Eos % (Auto) % Baso % (Auto) % Neut # (Auto) (1.4-6.5) K/uL Lymph # (Auto) (1.2-3.4) K/uL [place] # (Auto) (0.11-0.59) K/uL Eos # (Auto) (0-0.5) K/uL Baso # (Auto) (0-0.2) K/uL Immature Gran # (Auto) (0.00-0.02) K/uL PT 13.8 H INR 1.3 H APTT 32.9 H PTT Ratio 1.2 VBG pH (7.36-7.41) VBG pCO2 (38-50) mmHg VBG pO2 mmHg VBG HCO3 mmol/L VBG O2 Saturation % VBG Base Excess mEq/L Barometric Pressure mm/Hg POC Sodium 139 (135-144) mmol/L Sodium (136-145) mmol/L POC Potassium 3.8 (3.3-5.0) mmol/L Potassium 3.8 (3.5-5.1) mmol/L POC Chloride 103 (101-112) mmol/L Chloride (98-107) mmol/L Carbon Dioxide (21-32) mmol/L POC Total CO2 21 L (24-31) mmol/L Anion Gap (3-11) POC Anion Gap 20.0 (16-25) mmol/L POC BUN 16 (7-18) mg/dl BUN (7-18) mg/dl Creatinine (0.6-1.4) mg/dl POC Creatinine 1.0 (0.6-1.3) mg/dl Est Cr Clr Drug Dosing ml/min Est GFR ( Amer) Est GFR (Non-Af Amer) BUN/Creatinine Ratio (10-20) Glucose (70-99) mg/dl POC Glucose (other) 115 H (70-99) mg/dl Lactate (0.4-2.0) mmol/L Calcium (8.5-10.1) mg/dl POC Ioniz Calcium Karla 1.06 L (1.12-1.32) mmol/l Magnesium 1.8 (1.8-2.4) mg/dl Total Bilirubin (0.2-1) mg/dl AST 22 (15-37) U/L ALT (12-78) U/L Alkaline Phosphatase (45-117) U/L Troponin I (0-0.045) ng/ml NT-Pro-B Natriuret Pep (0-1800) pg/ml Total Protein (6.4-8.2) gm/dl Albumin (3.4-5.0) gm/dl Globulin (2.5-4.0) gm/dl Albumin/Globulin Ratio (0.9-2) Procalcitonin (0-0.5) ng/ml Urine Color Urine Appearance (Clear) Urine pH (4.5-7.5) Ur Specific [place] (1.000-1.030) Urine Protein (Negative) Urine Glucose (UA) (Negative) Urine Ketones (Negative) Urine Blood (Negative) Urine Nitrite (Negative) Urine Bilirubin (Negative) Urine Urobilinogen (Negative) Ur Leukocyte Esterase (Negative) Urine WBC (Auto) (0-5) /hpf Urine RBC (Auto) (0-4) /hpf U Hyaline Cast (Auto) (0-5) /lpf U Epithel Cells (Auto) (0-5) /lpf Urine Bacteria (Auto) (Negative) Adenovirus (PCR) (NotDetected) B. pertussis DNA (PCR) (NotDetected) B.parapertussis DNA PCR (NotDetected) C. pneumoniae DNA (PCR) (NotDetected) Coronavirus OC43 (PCR) (NotDetected) Coronavirus HKU1 (PCR) (NotDetected) Coronavirus 229E (PCR) (NotDetected) COVID-19 Eval Order COVID-19 PCR (Negative) Coronavirus NL63 (PCR) (NotDetected) Human Metapneumovir PCR (NotDetected) Influenza Type A (PCR) (NotDetected) Influenza Type B (PCR) (NotDetected) M. pneumoniae (PCR) (NotDetected) Parainfluenza 1 (PCR) (NotDetected) Parainfluenza 2 (PCR) (NotDetected) Parainfluenza 3 (PCR) (NotDetected) Parainfluenza 4 (PCR) (NotDetected) RSV (PCR) (NotDetected) Entero/Rhino (PCR) (NotDetected) 01/09/20 01/09/20 Range/Units 17:17 17:17 WBC (4.8-10.8) K/uL RBC (4.7-6.1) M/uL Hgb (14.0-18.0) g/dL POC Hgb (14.0-18.0) g/dl Hct (42-52) % POC Hct (42-52) % MCV (80-100) fL MCH (25-34) pg MCHC (32-36) g/dL RDW Std Deviation (36.4-46.3) fL RDW Coeff of Michelle (11.5-14.5) % Plt Count (130-400) K/uL MPV (7.4-10.4) fL Immature Gran % (Auto) % Neut % (Auto) % Lymph % (Auto) % [place] % (Auto) % Eos % (Auto) % Baso % (Auto) % Neut # (Auto) (1.4-6.5) K/uL Lymph # (Auto) (1.2-3.4) K/uL [place] # (Auto) (0.11-0.59) K/uL Eos # (Auto) (0-0.5) K/uL Baso # (Auto) (0-0.2) K/uL Immature Gran # (Auto) (0.00-0.02) K/uL PT INR APTT PTT Ratio VBG pH (7.36-7.41) VBG pCO2 (38-50) mmHg VBG pO2 mmHg VBG HCO3 mmol/L VBG O2 Saturation % VBG Base Excess mEq/L Barometric Pressure mm/Hg POC Sodium (135-144) mmol/L Sodium (136-145) mmol/L POC Potassium (3.3-5.0) mmol/L Potassium (3.5-5.1) mmol/L POC Chloride (101-112) mmol/L Chloride (98-107) mmol/L Carbon Dioxide (21-32) mmol/L POC Total CO2 (24-31) mmol/L Anion Gap (3-11) POC Anion Gap (16-25) mmol/L POC BUN (7-18) mg/dl BUN (7-18) mg/dl Creatinine (0.6-1.4) mg/dl POC Creatinine (0.6-1.3) mg/dl Est Cr Clr Drug Dosing ml/min Est GFR ( Amer) Est GFR (Non-Af Amer) BUN/Creatinine Ratio (10-20) Glucose (70-99) mg/dl POC Glucose (other) (70-99) mg/dl Lactate (0.4-2.0) mmol/L Calcium (8.5-10.1) mg/dl POC Ioniz Calcium Karla (1.12-1.32) mmol/l Magnesium (1.8-2.4) mg/dl Total Bilirubin (0.2-1) mg/dl AST (15-37) U/L ALT (12-78) U/L Alkaline Phosphatase (45-117) U/L Troponin I 0.058 H* (0-0.045) ng/ml NT-Pro-B Natriuret Pep (0-1800) pg/ml Total Protein (6.4-8.2) gm/dl Albumin (3.4-5.0) gm/dl Globulin (2.5-4.0) gm/dl Albumin/Globulin Ratio (0.9-2) Procalcitonin < 0.05 (0-0.5) ng/ml Urine Color Urine Appearance (Clear) Urine pH (4.5-7.5) Ur Specific [place] (1.000-1.030) Urine Protein (Negative) Urine Glucose (UA) (Negative) Urine Ketones (Negative) Urine Blood (Negative) Urine Nitrite (Negative) Urine Bilirubin (Negative) Urine Urobilinogen (Negative) Ur Leukocyte Esterase (Negative) Urine WBC (Auto) (0-5) /hpf Urine RBC (Auto) (0-4) /hpf U Hyaline Cast (Auto) (0-5) /lpf U Epithel Cells (Auto) (0-5) /lpf Urine Bacteria (Auto) (Negative) Adenovirus (PCR) (NotDetected) B. pertussis DNA (PCR) (NotDetected) B.parapertussis DNA PCR (NotDetected) C. pneumoniae DNA (PCR) (NotDetected) Coronavirus OC43 (PCR) (NotDetected) Coronavirus HKU1 (PCR) (NotDetected) Coronavirus 229E (PCR) (NotDetected) COVID-19 Eval Order COVID-19 PCR (Negative) Coronavirus NL63 (PCR) (NotDetected) Human Metapneumovir PCR (NotDetected) Influenza Type A (PCR) (NotDetected) Influenza Type B (PCR) (NotDetected) M. pneumoniae (PCR) (NotDetected) Parainfluenza 1 (PCR) (NotDetected) Parainfluenza 2 (PCR) (NotDetected) Parainfluenza 3 (PCR) (NotDetected) Parainfluenza 4 (PCR) (NotDetected) RSV (PCR) (NotDetected) Entero/Rhino (PCR) (NotDetected) Imaging Data Radiologist's Impression: XR chest 1V portable CLINICAL HISTORY: SEPSIS dyspnea COMPARISON STUDY: 06/21/2019 FINDINGS: Mild cardiomegaly. Prior valve replacement. Right pleural effusion with a minimal left effusion. Prominent pulmonary vasculature. IMPRESSION: Congestive heart failure with small bilateral pleural effusions. ACT 112: Negative or not required by law. The above report was generated using voice recognition software. It may contain grammatical, syntax or spelling errors. Electronically signed by: Dg Jiang M.D. 01/09/2020 2:59 PM Dictated: 01/09/208 Transcribed: 01/09/20 145 ECG Data Indication: + other (Sepsis) Rate (beats per minute): 81 Rhythm: + normal sinus ECG Intervals/blocks: + Normal QRS and + Normal GA ECG ST segments: + Normal ST segments Additional Comments: QTc 499 MDM Narrative 1333: The patient was evaluated in room C9. A complete history and physical exam was performed. Cardiac monitoring: An order was placed for continuous cardiac monitoring. The monitor shows a rate of 100 with sinus rhythm 1410: tachypnic at 28 SaO2 stable. patient will be moved to negative pressure room to start hi flow O2 and be given albuterol puffs 1435: Patient removed to negative pressure room room A9. He will be started on high flow nasal cannula oxygen and Vapotherm. Patient continues to have tachypnea. His oxygen saturation is stable at this time. I did asked the patient if he would like to be intubated if need be however the patient states he does not want any resuscitative measures or to be intubated. The EMR was reviewed and the patient has orders for DNR/DNI on previous hospital admissions also. 1445: Patient's daughter Radha Marroquin called to speak with me [phone]. She confirmed that the patient is a DNR/DNI. She stated she does not think that the patient took any of his medications this morning. She states that the patient has no known contact with anyone who is COVID-19 positive or person of interest. 1535: Patient does appear more comfortable on the high flow nasal cannula Vapotherm. Patient has a leukocytosis of 16.9. Patient will be treated with Rocephin and azithromycin for pneumonia given his fever and tachypnea. Impression & Plan Pneumonia Discharge Plan Visit Data *Final* Discharge Date/Time: 01/09/20 18:16 Chief Complaint: Illness Stated Complaint: Fever, SOB, Dizzy, Weakness ED Provider: Andrea Hughes Discharge Problem: Pneumonia Patient Disposition: Admitted As Inpatient Discharge Instructions Interventions: ED Discharge Assessment Last Done: 01/09/20 18:16
[2020-01-09] MEDS ORDERED: SODIUM CHLORIDE 0.9% 1000ML 1,000 ML IV SCH (14:30)
--- NOTE | 2020-01-09 15:00 | XRay Report ---
XR chest 1V portable CLINICAL HISTORY: SEPSIS dyspnea COMPARISON STUDY: 06/21/2019 FINDINGS: Mild cardiomegaly. Prior valve replacement. Right pleural effusion with a minimal left effusion. Prominent pulmonary vasculature. IMPRESSION: Congestive heart failure with small bilateral pleural effusions. ACT 112: Negative or not required by law. The above report was generated using voice recognition software. It may contain grammatical, syntax or spelling errors. Electronically signed by: Dg Jiang M.D. 01/09/2020 2:59 PM
[2020-01-09 15:02] LABS: Base Excess VBG 2.3 mEq/L; Basophils # (auto) 0.02 K/uL (0-0.2); Basophils % (auto) 0.1 %; Eosinophils # (auto) 0.03 K/uL (0-0.5); Eosinophils % (auto) 0.2 %; HCO3 VBG 27 mmol/L; Hematocrit (blood only) 40.4 % (42-52); Immature Granulocytes # (auto) 0.05 K/uL (0.00-0.02); Immature Granulocytes % (auto) 0.3 %; Lymphocytes % (auto) 3.5 %; Mean Corpuscular Hemoglobin 25.9 pg (25-34); Mean Corpuscular Hgb Conc 32.2 g/dL (32-36); Mean Corpuscular Volume 80.6 fL (80-100); Mean Platelet Volume 9.8 fL (7.4-10.4); Monocytes # (auto) 1.15 K/uL (0.11-0.59); Monocytes % (auto) 6.8 %; Neutrophils # (auto) 15.06 K/uL (1.4-6.5); Neutrophils % (auto) 89.1 %; PCO2 VBG 42 mmHg (38-50); PO2 VBG 22 mmHg; Platelet Count 260 K/uL (130-400); RDW Coefficient of Variation 16.4 % (11.5-14.5); RDW Standard Deviation 47.7 fL (36.4-46.3); Red Blood Count 5.01 M/uL (4.7-6.1); White Blood Count 16.91 K/uL (4.8-10.8); pH VBG 7.42 (7.36-7.41)
[2020-01-09 15:03] LABS: Oxygen Saturation VBG < 60.0 %
[2020-01-09 15:08] LABS: Appearance Urine Clear (Clear); Bacteria Urine Automated Negative (Negative); Bilirubin Urine Negative (Negative); Blood Urine Negative (Negative); Color Urine Dark Yellow; Glucose Urine UA Negative (Negative); Ketones Urine Trace (Negative); Leukocyte Esterase Urine 1+ (Negative); Nitrite Urine Negative (Negative); Protein Urine Trace (Negative); Specific Gravity Urine 1.022 (1.000-1.030); Urobilinogen Urine Negative (Negative); pH Urine 6.5 (4.5-7.5)
[2020-01-09 15:27] LABS: Albumin Globulin Ratio 0.7 (0.9-2); Albumin Level 2.6 gm/dl (3.4-5.0); BUN Creatinine Ratio 13.6 (10-20); Calcium 8.6 mg/dl (8.5-10.1); Creatinine Clr Calc Pharmacy 47.3 ml/min; Est GFR (African American) 65.5; Est GFR (Non-African American) 56.5; Globulin 3.6 gm/dl (2.5-4.0); Total Protein 6.2 gm/dl (6.4-8.2)
[2020-01-09] MEDS ORDERED: cefTRIAXone SODIUM 1,000 MG/50 ML BAG IV STA (15:31)
[2020-01-09] MEDS ORDERED: AZITHROMYCIN 500 MG in DEXTROSE 5% 250 ML IV ONE (15:31)
[2020-01-09 16:10] LABS: Adenovirus PCR Not Detected (NotDetected); Bordetella parapertussis PCR Not Detected (NotDetected); Bordetella pertussis PCR Not Detected (NotDetected); Chlamydia pneumoniae PCR Not Detected (NotDetected); Coronavirus 229E PCR Not Detected (NotDetected); Coronavirus HKU1 PCR Not Detected (NotDetected); Coronavirus NL63 PCR Not Detected (NotDetected); Coronavirus OC43PCR Not Detected (NotDetected); Human Metapneumovirus PCR Not Detected (NotDetected); Influenza A PCR Not Detected (NotDetected); Influenza B PCR Not Detected (NotDetected); Mycoplasma pneumoniae PCR Not Detected (NotDetected); Parainfluenza Virus 1 PCR Not Detected (NotDetected); Parainfluenza Virus 2 PCR Not Detected (NotDetected); Parainfluenza Virus 3 PCR Not Detected (NotDetected); Parainfluenza Virus 4 PCR Not Detected (NotDetected); Respiratory Syncytial VirusPCR Not Detected (NotDetected); Rhinovirus/Enterovirus PCR Not Detected (NotDetected)
[2020-01-09 16:22] LABS: iSTAT Hemoglobin 11.2 g/dl (14.0-18.0); iSTAT Ionized Calcium 1.06 mmol/l (1.12-1.32); iSTAT Potassium 3.8 mmol/L (3.3-5.0)
[2020-01-09 16:32] LABS: Potassium 3.8 mmol/L (3.5-5.1)
[2020-01-09 16:33] LABS: INR 1.3 (0.9-1.1); Partial Thromboplastin Ratio 1.2; Partial Thromboplastin Time 32.9 Seconds (21.0-31.0); Prothrombin Time 13.8 Seconds (9.0-12.0)
[2020-01-09 16:37] LABS: Magnesium 1.8 mg/dl (1.8-2.4)
[2020-01-09] MEDS ORDERED: methylPREDNISolone 125 MG/2 ML VIAL IV STA (17:27)
[2020-01-09] MEDS ORDERED: methylPREDNISolone 60 MG in SYRINGE 0 ML IV ONE (17:45)
[2020-01-09] MEDS ORDERED: ACETAMINOPHEN 325 MG TAB PO PRN (18:34)
[2020-01-09] MEDS ORDERED: ONDANSETRON INJ 2 MG/ML 2 ML VIAL IV PRN (18:34)
--- NOTE | 2020-01-09 18:49 | Electrocardiogram Report ---
Test Reason : Blood Pressure : / mmHG Vent. Rate : 081 BPM Atrial Rate : 081 BPM P-R Int : 156 ms QRS Dur : 098 ms QT Int : 430 ms P-R-T Axes : 105 053 173 degrees QTc Int : 499 ms Atrial flutter Nonspecific ST and T wave abnormality Prolonged QT Abnormal ECG When compared with ECG of 19-JUN-2019 20:21, T wave inversion no longer evident in Anterior leads Confirmed by Santiago Juan ([id number]) on 01/09/2020 6:49:44 PM Referred By: REFERRED SELF Confirmed By:Stiven Juan
--- NOTE | 2020-01-09 19:06 | History & Physical Report ---
Date of Service January 09, 2020 Assessment & Plan (1) Acute respiratory failure with hypoxia: Aim O2 sats > 92%, no CO2 retention suspected given VBG Unclear what is driving this as fever, hypotension, improvement with IV fluids given as part of his treatment, suspected infection suggests he is dry CXR, lung auscultation, leg swelling (although pt reports at his baseline) would suggest he is wet Currently favor he is dry but will d/c maintenance IV fluids, liberalize PO fluid intake and reduce his diuretic in the morning, if BP low overnight would favor occasional boluses Improvement with inhalers suggests COPD exacerbation although notably no wheezing on exam (see treatment below) Possible PNA although procalcitonin negative. (2) COPD exacerbation: Solu-medrol 60mg IV now, then 40mg IV BID Duonebs QID (3) Fever: I am unclear what is driving this. He had a similar illness in June which resolved without antibiotics (except in the ER). Follow up blood cultures Will repeat procalcitonin in AM given this is the most likely source but hold further antibiotics at this stage as no definitive source. (4) Chronic pleural effusion: This is been present since sepsis episode in 2018. He was having recurrence effusions prior to this due to heart failure which would usually clear up however. He has considerable atelectasis in the right lower lobe increasing his risk of pneumonia. Unlikely his lung would reexpand into the space if thoracocentesis performed however may consider this nonurgently given underlying pulmonary nodules for diagnostic purposes. (5) Pulmonary nodules: Noted on prior CT. Recommend outpatient follow-up unless he deteriorates would have low threshold to rescan given difficulty of interpreting his chest x- ray with chronic findings. (6) Chronic diastolic (congestive) heart failure: Despite appearance on chest x-ray he does not appear to be having an acute exacerbation at this time as discussed above. Reduce Bumex to 1 mg p.o. daily and continue to monitor daily weights with I&Os. (7) GERD (gastroesophageal reflux disease): Switch omeprazole for pantoprazole as per hospital formulary (8) BPH (benign prostatic hyperplasia): Continue tamsulosin 0.4 mg p.o. every afternoon, finasteride 5 mg p.o. every afternoon (9) Elevated troponin: This appears to be at his baseline I do not suspect ACS. No need to repeat. (10) Atrial flutter: Appears to be rate controlled on carvedilol 6.25 mg p.o. twice daily Anticoagulation with apixaban 5 mg twice daily (11) DVT prophylaxis: Anticoagulation as above with apixaban 5 mg twice daily Admission and Anticipated Discharge Date Admission Date: 01/09/2020 History of Present Illness Primary Care Provider: Sugey Daley PA-C Jayme Mckinney is an 89-year-old male who presents to the ER with shortness of breath, fever, vomiting episode, generalized weakness. He reports getting gradually worse over the last 2 days. He feels this improves with his inhalers. No worsening of his breathing with IV fluids given in ER. No abdominal pain, change in bowels, melena, bright red blood in stool. His main complaint is his shortness of breath, no hemoptysis. He does not weigh himself at home so unknown if his weight is changed. He reports his leg swelling is at his baseline and actually thinks he is been getting more dehydrated recently due to vomiting. Fever mentioned in ER note however he denies this to me but does note he is feeling chilly in the room currently. He denies any chest pain, orthopnea, PND, palpitations, presyncope or syncope. No longer feeling nauseous in the ER after ondansetron given. Back in June he had a similar illness which resolved without antibiotics despite elevated white blood count. Suspected to be due to viral gastroenteritis at that time. Allergies Allergy/AdvReac Type Severity Reaction Status Date / Time aspirin AdvReac Intermediate GI Verified 01/09/20 17:08 ULCERATION- WHEN TAKEN WITH COUMADIN black pepper AdvReac Mild Prostate Verified 01/09/20 17:08 problems lisinopril AdvReac Mild Cough Verified 01/09/20 17:09 Sulfa (Sulfonamide AdvReac Unknown "SULFA Verified 07/29/19 09:57 Antibiotics) DRUGS": HAS TOLERATED LASIX IN PAST Home Medications Home Medications Medication Instructions Recorded Confirmed Type atorvastatin 40 mg PO QPM 08/24/18 01/09/20 History clopidogrel [Plavix] 75 mg PO QAM 08/24/18 01/09/20 History finasteride 5 mg PO QPM 08/24/18 01/09/20 History omeprazole 20 mg PO QAM 08/24/18 01/09/20 History tamsulosin [Flomax] 0.4 mg PO QPM 08/24/18 01/09/20 History nitroglycerin 0.4 mg sublingual 0.4 mg SUBLINGUAL DIRECTED PRN 01/27/19 01/09/20 History tablet tab apixaban 5 mg tablet 5 mg PO BID #180 tab 02/06/19 01/09/20 Rx potassium chloride [Klor-Con M20] 20 meq PO QAM 06/19/19 01/09/20 History Combivent Respimat 1 puff INHALATION BID #4 gm 06/21/19 01/09/20 Rx carvedilol 6.25 mg tablet 6.25 mg PO BID #180 tab 06/29/19 01/09/20 Rx bumetanide 2 mg PO QAM 01/09/20 01/09/20 History Past Med/Surg History Medical History Atrial fibrillation (Chronic) BPH (benign prostatic hyperplasia) CAD (coronary artery disease) (Chronic) CHF (congestive heart failure) (Resolved) Chronic diastolic (congestive) heart failure COPD (chronic obstructive pulmonary disease) Hyperlipidemia Hypertension (Chronic) 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 Mitral valve disorder (Chronic) Paroxysmal atrial flutter Proteus mirabilis infection Streptococcal infection Wound of right foot Surgical History 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 Family History Father Asthma Heart disease Mother Leukemia Social History Smoking Status: Former smoker Cigarettes Per Day: 20-40; Second Hand Exposure: No; Do You Dip or Chew Tobacco: No; Tobacco Cessation Education Requested by Patient: No Hx Alcohol Use: No Hx Substance Use: No Preferred Language: Icelandic Communication Ability: Effective Hot Stick Man Required: No Beliefs That Will Affect Care: None marital status: / Current Living Situation: Alone current occupational status: retired current occupation: worked 18 years at [employer] in [place]; served in [employer] Other Information That Helps Us Care for You: No other: lives alone in [place]; has 2 children Feels Safe at Home: Yes Safety Concerns: Feels Safe At This Time Review of Systems Review of Systems: All systems reviewed & are unremarkable except as noted in HPI & below Constitutional: + chills; no fever Physical Exam Constitutional: + frail appearing; + not well nourished and no acute distress Eyes: + anicteric sclerae; normal pupil size ENMT: external ear and nose normal, oropharynx normal Cardiovascular: Rate/Rhythm: regular rate and regular rhythm Heart Sounds: no murmur Vessels: normal peripheral pulses; no JVD Extremities: normal capillary refill and + pedal edema (2+ to knees b/l, patient reports at baseline); no calf tenderness Gastrointestinal (Abdomen): normal bowel sounds, soft, nontender, no hepatosplenomegaly Musculoskeletal: no cyanosis or clubbing, extremities motor strength 5/5 Skin: + turgor decreased (Upper extremities, otherwise moist mucous membranes) Neurologic: moves all extremities and awake; not confused Psychiatric: A+Ox3, euthymic affect Genitourinary: no CVA tenderness Lymphatic: no cervical or axillary lymphadenopathy Results & Data Results & Data ([facility]) Vital Signs (Past 12 Hours) Vital Signs Temp Pulse Pulse Resp BP Pulse Ox 01/09/20 17:15 65 20 101/53 L 95 01/09/20 17:00 60 20 99/49 L 93 01/09/20 16:50 71 19 90 01/09/20 16:45 62 22 100/55 L 91 01/09/20 16:39 22 01/09/20 16:30 62 23 103/51 L 91 01/09/20 16:15 69 23 104/52 L 94 01/09/20 16:09 93 01/09/20 16:00 37.4 C 77 23 107/54 L 93 01/09/20 15:46 79 23 120/63 94 01/09/20 15:30 79 22 114/57 L 96 01/09/20 15:15 80 22 122/59 L 96 01/09/20 15:00 37.9 C H 80 80 27 H 131/63 98 01/09/20 14:45 81 29 H 154/72 H 96 01/09/20 14:38 81 27 H 139/67 94 01/09/20 14:14 81 24 149/70 H 95 01/09/20 14:06 81 26 H 137/61 95 01/09/20 13:54 38.3 C H 81 22 143/62 H 93 Diagnostic Findings XR chest 1V portable IMPRESSION: Congestive heart failure with small bilateral pleural effusions. ECG Rate (beats per minute): 81 Rhythm: atrial flutter Findings: + nonspecific-ST abn and + prolonged QT (499ms) Comparison ECG Date: from (06/19/2019) Change: the following changes noted (No longer with T wave inversion in anterior leads) Code Status & VTE Plan Code Status DNR/DNI as discussed with the patient VTE Prophylaxis Plan VTE Prophylaxis will be ordered: Yes PG Care Time/CCT Total # of Minutes Spent Total Time Spent with Patient: Total time spent is greater than 50% in coordination of care (as documented) at patient's floor/unit and/or counseling patient: Coding Level of Care Code 78130 Initial Inpt Care Lvl 3 Diagnoses Acute respiratory failure with hypoxia J96.01 COPD exacerbation J44.1 Fever R50.9 Chronic pleural effusion J90 Pulmonary nodules R91.8 Chronic diastolic (congestive) heart failure I50.32 GERD (gastroesophageal reflux disease) K21.9 Esophagitis presence: without esophagitis BPH (benign prostatic hyperplasia) N40.0 Lower urinary tract symptom presence: symptoms absent Elevated troponin R79.89 Atrial flutter I48.92 DVT prophylaxis Z29.9 (1) GERD (gastroesophageal reflux disease) Esophagitis presence: without esophagitis Qualified Code(s): K21.9 - Gastro- esophageal reflux disease without esophagitis (2) BPH (benign prostatic hyperplasia) Lower urinary tract symptom presence: symptoms absent Qualified Code(s): N40.0 - Benign prostatic hyperplasia without lower urinary tract symptoms
[2020-01-09] MEDS: ALBUT/IPRATROP 3MG/0.5MG NEB 3 ML VIAL NEB SCH (19:40)
[2020-01-09] MEDS: APIXABAN 5 MG TABLET PO SCH (20:53)
[2020-01-09] MEDS: FINASTERIDE 5 MG TAB PO SCH (20:53)
[2020-01-09] MEDS: ATORVASTATIN 40 MG TAB PO SCH (20:53)
[2020-01-09] MEDS: TAMSULOSIN HCL 0.4 MG CAP PO SCH (20:53)
[2020-01-09] MEDS: carvediloL 3.125 MG TAB PO SCH (20:53)
[2020-01-10 04:58] LABS: Basophils # (auto) 0.01 K/uL (0-0.2); Basophils % (auto) 0.1 %; Hematocrit (blood only) 37.3 % (42-52); Hemoglobin 11.8 g/dL (14.0-18.0); Immature Granulocytes # (auto) 0.04 K/uL (0.00-0.02); Immature Granulocytes % (auto) 0.3 %; Lymphocytes # (auto) 0.69 K/uL (1.2-3.4); Lymphocytes % (auto) 4.5 %; Mean Corpuscular Hemoglobin 25.5 pg (25-34); Mean Corpuscular Hgb Conc 31.6 g/dL (32-36); Mean Corpuscular Volume 80.6 fL (80-100); Mean Platelet Volume 9.3 fL (7.4-10.4); Monocytes % (auto) 1.9 %; Neutrophils # (auto) 14.36 K/uL (1.4-6.5); Neutrophils % (auto) 93.2 %; Platelet Count 195 K/uL (130-400); RDW Coefficient of Variation 16.2 % (11.5-14.5); RDW Standard Deviation 47.7 fL (36.4-46.3); Red Blood Count 4.63 M/uL (4.7-6.1)
[2020-01-10 05:31] LABS: Albumin Level 2.1 gm/dl (3.4-5.0); BUN Creatinine Ratio 17.9 (10-20); Calcium 8.1 mg/dl (8.5-10.1); Creatinine Clr Calc Pharmacy 47.3 ml/min; Est GFR (African American) 65.5; Est GFR (Non-African American) 56.5; Magnesium 1.9 mg/dl (1.8-2.4)
[2020-01-10 05:34] LABS: Albumin Globulin Ratio 0.7 (0.9-2); Bilirubin,Total 0.9 mg/dl (0.2-1); Globulin 3.2 gm/dl (2.5-4.0); Phosphorus 2.2 mg/dl (2.5-4.9); Total Protein 5.3 gm/dl (6.4-8.2)
[2020-01-10] MEDS: ALBUT/IPRATROP 3MG/0.5MG NEB 3 ML VIAL NEB SCH ×4 (07:19→19:29)
[2020-01-10] MEDS: PANTOprazole 40 MG TAB PO SCH (08:05)
[2020-01-10] MEDS: CLOPIDOGREL BISULFATE 75 MG TAB PO SCH (08:05)
[2020-01-10] MEDS: carvediloL 3.125 MG TAB PO SCH ×2 (08:06→20:49)
[2020-01-10] MEDS: APIXABAN 5 MG TABLET PO SCH ×2 (08:06→20:49)
[2020-01-10] MEDS: BUMETANIDE 1 MG TAB PO SCH (08:06)
--- NOTE | 2020-01-10 08:40 | Hospitalist Progress Note ---
Date of Service January 10, 2020 Assessment & Plan (1) Acute respiratory failure with hypoxia: Aim O2 sats > 92%, no CO2 retention suspected given VBG Unclear what is driving this as fever, hypotension, improvement with IV fluids given as part of his treatment, suspected infection suggests he is dry CXR, lung auscultation, leg swelling (although pt reports at his baseline) would suggest he is wet Currently favor he is dry but will d/c maintenance IV fluids, liberalize PO fluid intake and reduce his diuretic in the morning, if BP low overnight would favor occasional boluses Improvement with inhalers suggests COPD exacerbation although notably no wheezing on exam (see treatment below) Possible PNA although procalcitonin negative. (2) COPD exacerbation: Solu-medrol 60mg IV now, then 40mg IV BID Duonebs QID (3) Fever: He had a similar illness in June which resolved without antibiotics (except in the ER). Follow up blood cultures Will repeat procalcitonin in AM given this is the most likely source but hold further antibiotics at this stage as no definitive source. (4) Chronic pleural effusion: Admission and Anticipated Discharge Date Admission Date: January 09, 2020 Results & Data Results & Data ([facility]) Vital Signs (Past 12 Hours) Vital Signs Temp Pulse Pulse Pulse Resp BP Pulse Ox 01/10/20 07:43 37.1 C 80 19 129/68 94 01/10/20 07:20 48 L 16 96 01/10/20 07:00 54 L 01/10/20 03:29 36.5 C 52 L 16 99/60 L 95 01/09/20 23:00 36.8 C 58 L 58 L 20 94/56 L 97 Pulse Ox 01/10/20 07:43 01/10/20 07:20 01/10/20 07:00 01/10/20 03:29 01/09/20 23:00 97
[2020-01-10] MEDS ORDERED: methylPREDNISolone 40 MG in SYRINGE 0 ML IV SCH (09:00)
[2020-01-10] MEDS: POTASSIUM CHLORIDE 20 MEQ TABCR PO SCH (09:10)
--- NOTE | 2020-01-10 14:33 | Discharge Summary ---
Date of Service January 10, 2020 Admission HPI Per Admitting Provider Jayme Mckinney is an 89-year-old male who presents to the ER with shortness of breath, fever, vomiting episode, generalized weakness. He reports getting gradually worse over the last 2 days. He feels this improves with his inhalers. No worsening of his breathing with IV fluids given in ER. No abdominal pain, change in bowels, melena, bright red blood in stool. His main complaint is his shortness of breath, no hemoptysis. He does not weigh himself at home so unknown if his weight is changed. He reports his leg swelling is at his baseline and actually thinks he is been getting more dehydrated recently due to vomiting. Fever mentioned in ER note however he denies this to me but does note he is feeling chilly in the room currently. He denies any chest pain, orthopnea, PND, palpitations, presyncope or syncope. No longer feeling nauseous in the ER after ondansetron given. Back in June he had a similar illness which resolved without antibiotics despite elevated white blood count. Suspected to be due to viral gastroenteritis at that time. Admission Exam Per Admitting Provider Constitutional: + frail appearing; + not well nourished and no acute distress Eyes: + anicteric sclerae; normal pupil size ENMT: external ear and nose normal, oropharynx normal Cardiovascular: Rate/Rhythm: regular rate and regular rhythm Heart Sounds: no murmur Vessels: normal peripheral pulses; no JVD Extremities: normal capillary refill and + pedal edema (2+ to knees b/l, patient reports at baseline); no calf tenderness Gastrointestinal (Abdomen): normal bowel sounds, soft, nontender, no hepatosplenomegaly Musculoskeletal: no cyanosis or clubbing, extremities motor strength 5/5 Skin: + turgor decreased (Upper extremities, otherwise moist mucous membranes) Neurologic: moves all extremities and awake; not confused Psychiatric: A+Ox3, euthymic affect Genitourinary: no CVA tenderness Lymphatic: no cervical or axillary lymphadenopathy Principal Diagnosis Viral Gastroenteritis Discharge Exam Constitutional WD/WN, vitals as above Eyes PERRL, conjunctivae normal, anicteric sclerae Neck trachea midline, no thyromegaly normal visual inspection Respiratory normal respiratory effort, lungs clear to auscultation Cardiovascular Vessels: no JVD Extremities: normal capillary refill; no edema irregularly irregular rhythm, no murmurs Gastrointestinal (Abdomen) normal bowel sounds, soft, nontender, no hepatosplenomegaly Musculoskeletal no cyanosis or clubbing, extremities motor strength 5/5 Skin no rashes, warm and dry Psychiatric A+Ox3, euthymic affect Lymphatic no cervical lymphadenopathy Discharge Data Allergies Allergy/AdvReac Type Severity Reaction Status Date / Time aspirin AdvReac Intermediate GI Verified 01/09/20 17:08 ULCERATION- WHEN TAKEN WITH COUMADIN black pepper AdvReac Mild Prostate Verified 01/09/20 17:08 problems lisinopril AdvReac Mild Cough Verified 01/09/20 17:09 Sulfa (Sulfonamide AdvReac Unknown "SULFA Verified 07/29/19 09:57 Antibiotics) DRUGS": HAS TOLERATED LASIX IN PAST Consultations 01/09/20 17:50 ED Decision to Admit Stat Hospital Course (1) Viral gastroenteritis: Mr. Mckinney is a 89 yo male with h/o CHF, COPD, a-flutter who presented to [facility] on 01/09/2020 with Fever 38.3C and dizziness, s/p vomiting and diarrhea x2 days. He was given IV solumedrol and IV abx for presumed COPD exacerbation secondary to infection; WBC 16.9 but no signs of respiratory infection or sepsis on physical exam or labs/imaging. Final diagnosis is most likely viral gastroenteritis, leading to N/V, diarrhea, dizziness and fever. He was discharged in good condition on 01/10/2020 with no symptoms or complaints. Total Time Total Time Spent Total Time Spent (In Minutes): >30 minutes Total Time Includes: Examination of the Patient and Discharge Planning Discharge Plan Discharge Items Patient Disposition: Home - Self-Care Reason For Visit: ACUTE RESPIRATORY FAILURE WITH HYPOXIA Discharge Diagnosis: Viral gastroenteritis Condition on Discharge: Good Activity: Resume your previous activity Non-emergency contact: Primary Care Provider Call non-emergency contact if: you have any medication questions, your symptoms worsen and you have a fever Follow-up/Referrals: Sugey Daley PA-C [Outside Practitioners] - Diet: Heart Healthy Addtl Attending Provider Instructions: You were admitted to [facility] on 01/09/2020 after having several days of nausea/vomiting, diarrhea and dizziness. You also had a fever of 101F at our Emergency Department. We initially thought you were experiencing a COPD exacerbation, so we gave you IV steroids and antibiotics to treat your COPD. You quickly improved after admission, and you did not have symptoms of wheezing or shortness of breath during this hospitalization. You did well overall while hospitalized, and you will be discharged on 01/10/2020 with your regular home medications. Once you get home, you should make sure to stand up slowly and carefully after lying down for an extended period of time, to avoid dizziness. Pending Studies at Discharge: No Stand-Alone Forms: My [facility], Smoking Cessation Medications and DC Order Prescriptions: Continued Eliquis 5 mg tablet 5 mg PO BID Qty: 180 RF: 3 carvedilol 6.25 mg tablet 6.25 mg PO BID Qty: 180 RF: 1 bumetanide 2 mg tablet 2 mg PO QAM RF: 0 atorvastatin 40 mg Tablet 40 mg PO QPM RF: 0 clopidogrel [Plavix] 75 mg Tablet 75 mg PO QAM RF: 0 tamsulosin [Flomax] 0.4 mg Capsule 0.4 mg PO QPM RF: 0 omeprazole 20 mg Capsule,Delayed Release(Dr/Ec) 20 mg PO QAM RF: 0 finasteride 5 mg Tablet 5 mg PO QPM RF: 0 nitroglycerin 0.4 mg tablet, sublingual 0.4 mg sublingual DIRECTED PRN (Reason: Chest Pain) RF: 0 potassium chloride [Klor-Con M20] 20 mEq tablet,ER particles/crystals 20 meq PO QAM RF: 0 Combivent Respimat 20-100 mcg/actuation Mist 1 puff INHALATION BID Qty: 4 RF: 0 Discharge Orders: Discharge Order (Routine); Ordered 01/10/20 Ordered By: Red Horner/Other Patient Handouts: Orthostatic Hypotension Admission Data Admit Date/Time: 01/09/20 17:32 Attending Provider: Robert Fuentes Admit Provider: Compa Xiao Primary Care Provider: PCP,NO Other Providers: Compa Xiao Other Interventions: Discharge Summary Assessment (RN) Last Done: 01/10/20 14:51 Supervising Physician Co-Signing Physician Notes I personally examined the patient and verified all betancourt points of history and exam, discussed case, and agree with decision making with Dr Sanchez. feeling more or less totally better. back to baseline. feels like he could go home. notes that from time to time he'll feel a little dizzy - but that's better now- has been up and walking and not dizzy and feels safe. denies sob. denies cough. no wheeze. when revisiting HPI he notes diarrhea ~2 nights ago, fever and vomiting yesterday. ate well today - no further vomiting or diarrhea. when asked multiple ways about his breathing (including directly asking about getting admitted labeled as COPD exac) he directly, repeatedly, reliably denies any dyspnea/any change in breathing off of his baseline, and notes that he really ended up here due to the nausea/vomiting and his daughter's insistence ("i learned a long time ago that you don't argue with a woman" - implying that once his daughter said he should come to the ER he would not fight her on it). notes that occassinally he'll need to take extra diuretic if legs are swelling more/weight goes up - but even this he has not had to do for weeks vitals noted nad heent nc at mmm lungs cta b/l no r/r/w good effort. abd soft nd nt no masses. ext no c/c, trace edema. no calf tenderness. labs and diagnostics reviewed viral illness - seems to have been gastroenteritis now resolved. stable/safe for home. after thorough review, extensive re-questining, review of studies, physical exam - breathing does not seem to be a problem. otherwise as above Resident Activity Tracking Resident Involvement: Resident Care Provided Care Provided: Adult Hospital Medicine
--- NOTE | 2020-01-10 16:53 | Billing Data ---
Date of Service January 10, 2020 Coding Level of Care Code D/C Day Management >30 mins
[2020-01-10] MEDS ORDERED: VANCOMYCIN CONSULT ACTIVE PRN (17:58)
[2020-01-10] MEDS ORDERED: VANCOMYCIN HCL 2,000 MG in SODIUM CHLORIDE 0.9% 500 ML IV ONE (18:15)
--- NOTE | 2020-01-10 18:25 | Hospitalist Progress Note ---
Date of Service January 10, 2020 Assessment & Plan (1) Gram-positive bacteremia: surprising given clinical picture as noted above, but nonetheless certainly need to take seriously given 2/2 GPC -vanco pending ID&S -repeat Cx in AM -TTE Admission and Anticipated Discharge Date Admission Date: January 09, 2020 Subjective see discharge summary for much of today's earlier clinical details. later in the day 1/2 blood cultures positive for gram positive cocci. given clinical presentation c/w viral GE, anticipated contaminant, still was planning on home -- then second culture surprisngly positive. other than fever - better attributed to viral etiology he otherwise appeared most c/w with, no clear s/s bacteremia or real risks (no indwelling lines, dental infections that he mentions, etc) -- but obviously can't ignore 2/2 GPC on blood culture. explained to pt in detail and at length - he expresses understanding. Review of Systems Review of Systems: All systems reviewed & are unremarkable except as noted in HPI & below Physical Exam Physical Exam: see dc summary same day - essentially normal exam. Results & Data Results & Data ([facility]) Vital Signs (Past 12 Hours) Vital Signs Temp Pulse Pulse Pulse Resp BP BP 01/10/20 16:35 97.5 F L 74 18 119/64 01/10/20 16:11 69 01/10/20 15:42 72 14 01/10/20 14:51 97.5 F L 58 L 80 16 114/67 129/68 01/10/20 12:09 97.5 F L 80 16 114/67 01/10/20 11:24 71 16 01/10/20 07:43 98.8 F 80 19 129/68 01/10/20 07:20 48 L 16 01/10/20 07:00 54 L Pulse Ox 01/10/20 16:35 97 01/10/20 16:11 01/10/20 15:42 93 01/10/20 14:51 96 01/10/20 12:09 96 01/10/20 11:24 94 01/10/20 07:43 94 01/10/20 07:20 96 01/10/20 07:00 PG Care Time/CCT Total # of Minutes Spent Total Time Spent with Patient: Total time spent is greater than 50% in coordination of care (as documented) at patient's floor/unit and/or counseling patient: Coding Level of Care Code 91689 Subseq Hosp Care Lvl 3 Diagnoses Gram-positive bacteremia R78.81 Comment disregard discharge - pt ended up staying
--- NOTE | 2020-01-10 19:10 | Pharmacy Report ---
Pharmacy Abx Initial Consult - Date of Service January 10, 2020 - Pharmacy Dosing Scope Date of Consult: 01/10/20 Consultation requested by: Dr. Fuentes Pharmacy is consulted to initiate vancomycin IV dosing therapy, order appropriate labs and adjust drug dose/frequency. - Subjective The patient is a 89 year old M admitted on 01/09/20 17:32. - Objective Height: 5 ft 11 in Weight: 82.5 kg Vital Signs (Past 12hrs): Vital Signs Temp Pulse Pulse Pulse Resp BP BP 01/10/20 16:35 36.4 C L 74 18 119/64 01/10/20 16:11 69 01/10/20 15:42 72 14 01/10/20 14:51 36.4 C L 58 L 80 16 114/67 129/68 01/10/20 12:09 36.4 C L 80 16 114/67 01/10/20 11:24 71 16 01/10/20 07:43 37.1 C 80 19 129/68 01/10/20 07:20 48 L 16 Pulse Ox 01/10/20 16:35 97 01/10/20 16:11 01/10/20 15:42 93 01/10/20 14:51 96 01/10/20 12:09 96 01/10/20 11:24 94 01/10/20 07:43 94 01/10/20 07:20 96 Lab Results (24hrs): Laboratory Tests (24 Hours) 01/10/20 01/10/20 01/10/20 04:28 04:28 04:28 WBC Neut # (Auto) Creatinine 1.15 Est Cr Clr Drug Dosing 47.3 C-Reactive Protein 7.49 H Procalcitonin 0.11 01/10/20 04:28 WBC 15.40 H Neut # (Auto) 14.36 H Creatinine Est Cr Clr Drug Dosing C-Reactive Protein Procalcitonin - Assessment & Plan Assessment 89 year old M ordered vancomycin for 2 of 2 positive blood cultures growing gram positive cocci in clusters. Patient was clinically improved today and ready for discharge, but this was postponed once 2 of 2 positive blood cultures resulted. At this point, source of infection is not clear. Leukocytosis noted (WBC: 15 K today), Tmax yesterday of 38.3 C. Patient also ordered azithromycin 250 mg PO daily for treatment of COPD exacerbation. Will follow blood cultures. Plan Vancomycin IV * Estimated PK Parameters: Vd 0.7 L/kg, Dudley 0.043 hr-1, t1/2 16 hr * Loading dose: 2000 mg (24 mg/kg) * Maintenance dose: 1250 mg IV (15 mg/kg) every 18 hours * Goal trough level for bacteremia (currently unknown source) : 15 to 20 mcg/mL * Trough level ordered prior to steady-state (third dose) on 01/12/20 to ensure safety/efficacy given advanced age Azithromycin * 500 mg IV x 1, 250 mg PO daily - no change Pharmacy will continue to follow and will adjust dose/frequency as necessary. Thank you.
[2020-01-10] MEDS: TAMSULOSIN HCL 0.4 MG CAP PO SCH (20:49)
[2020-01-10] MEDS: FINASTERIDE 5 MG TAB PO SCH (20:49)
[2020-01-10] MEDS: ATORVASTATIN 40 MG TAB PO SCH (20:49)
[2020-01-11] MEDS ORDERED: VANCOMYCIN HCL 1,000 MG in SODIUM CHLORIDE 0.9% 250 ML IV SCH ×2 (07:00→22:00)
[2020-01-11] MEDS: ALBUT/IPRATROP 3MG/0.5MG NEB 3 ML VIAL NEB SCH ×2 (07:22→11:02)
[2020-01-11 08:04] LABS: Basophils # (auto) 0.01 K/uL (0-0.2); Basophils % (auto) 0.1 %; Eosinophils # (auto) 0.07 K/uL (0-0.5); Eosinophils % (auto) 0.4 %; Hematocrit (blood only) 35.6 % (42-52); Hemoglobin 11.1 g/dL (14.0-18.0); Immature Granulocytes # (auto) 0.05 K/uL (0.00-0.02); Immature Granulocytes % (auto) 0.3 %; Lymphocytes # (auto) 0.99 K/uL (1.2-3.4); Lymphocytes % (auto) 5.3 %; Mean Corpuscular Hemoglobin 25.2 pg (25-34); Mean Corpuscular Hgb Conc 31.2 g/dL (32-36); Mean Corpuscular Volume 80.9 fL (80-100); Mean Platelet Volume 9.3 fL (7.4-10.4); Monocytes # (auto) 1.02 K/uL (0.11-0.59); Monocytes % (auto) 5.5 %; Neutrophils # (auto) 16.39 K/uL (1.4-6.5); Neutrophils % (auto) 88.4 %; Platelet Count 239 K/uL (130-400); RDW Coefficient of Variation 16.5 % (11.5-14.5); RDW Standard Deviation 48.6 fL (36.4-46.3); White Blood Count 18.53 K/uL (4.8-10.8)
[2020-01-11 08:37] LABS: BUN Creatinine Ratio 23.2 (10-20); Calcium 8.4 mg/dl (8.5-10.1); Creatinine Clr Calc Pharmacy 58.5 ml/min; Est GFR (African American) 84.7; Potassium 4.1 mmol/L (3.5-5.1)
[2020-01-11] MEDS: PANTOprazole 40 MG TAB PO SCH (09:00)
[2020-01-11] MEDS ORDERED: AZITHROMYCIN 250 MG TAB PO SCH (09:00)
[2020-01-11] MEDS: POTASSIUM CHLORIDE 20 MEQ TABCR PO SCH (09:00)
[2020-01-11] MEDS: BUMETANIDE 1 MG TAB PO SCH (09:00)
[2020-01-11] MEDS: CLOPIDOGREL BISULFATE 75 MG TAB PO SCH (09:00)
[2020-01-11] MEDS: APIXABAN 5 MG TABLET PO SCH ×2 (09:01→20:49)
[2020-01-11] MEDS: carvediloL 3.125 MG TAB PO SCH ×2 (09:01→20:50)
[2020-01-11] MEDS ORDERED: VANCOMYCIN HCL 1,250 MG in SODIUM CHLORIDE 0.9% 250 ML IV SCH ×2 (10:00→22:00)
[2020-01-11] MEDS: cefTRIAXone SODIUM 2,000 MG in DEXTROSE 5% 50 ML IV SCH (11:27)
[2020-01-11] MEDS ORDERED: ALBUT/IPRATROP 3MG/0.5MG NEB 3 ML VIAL NEB PRN (11:56)
--- NOTE | 2020-01-11 13:15 | Hospitalist Progress Note ---
Date of Service January 11, 2020 Assessment & Plan (1) Gram-positive bacteremia: Mr. Mckinney is an 89 yo male with h/o diastolic HF, COPD and atrial flutter who was admitted on 01/09/2020 for what was initially thought to be COPD exacerbation and fever secondary to viral gastroenteritis. Was found to have Gram-positive bacteremia on 01/09. Gram-positive bacteremia - currently afebrile with no clear source of infection - WBC 15.4 --> 18.5 today with predominant neutrophils and left-shift - CXR negative for signs of infection - MRSA negative - stopped Vancomycin IV today - start Ceftriaxone 2g IV daily - Tylenol PRN - follow final Blood culture Chronic Obstructive Pulmonary Disease - s/u Solumedrol 60 mg IV x1 - doing well with no symptoms of wheezing or increased work of breathing - continue duo nebs PRN Chronic Diastolic (Congestive) Heart Failure - continue bumetanide 1 mg PO QAM - TTE results pending - continue to monitor daily weights with I/O Chronic Pleural Efusion - present since sepsis episode in 2018 - stable Atrial flutter - continue Apixaban 5 mg PO BID - continue Carvedilol 3.125 mg PO BID GERD - continue Protonix 40 mg PO QAM while inpatient Nausea/Vomiting, resolved - nausea/vomiting with diarrhea and orthostatic hypotension for several days leading up to current hospitalization - symptoms resolved as of 01/09 - secondary to acute viral gastroenteritis vs bacteremia - PRN Zofran BPH - spontaneously voiding with no symptoms of urinary retention - continue Flomax 0.4 mg PO QHS Elevated Troponin - appears to be at his baseline Hyperlipidemia - continue Atorvastatin 40 mg PO QHS Diet: Heart Healthy with Fluid Restriction DVT Prophylaxis: Apixaban Code Status: DNR/DNI Disposition: Inpatient (2) Elevated troponin: (3) Chronic pleural effusion: (4) Chronic diastolic (congestive) heart failure: (5) Nausea & vomiting: (6) COPD (chronic obstructive pulmonary disease): (7) BPH (benign prostatic hyperplasia): (8) GERD (gastroesophageal reflux disease): (9) Atrial flutter: Admission and Anticipated Discharge Date Admission Date: January 09, 2020 Supervising Physician Co-Signing Physician Notes Attending attestation Pt seen and examined in concert with Dr. Sanchez. In agreement with the documented findings as noted in the resident documentation with any exceptions or additions as noted here. Continued improvement of presenting symptoms without overt complaint today. No h/o abn colonoscopy, last was > 10 years ago. On examination, S1/S2 nl RRR no MCG. CTAB. Abd NT/ND BS+ve +ve BCx - pending further speciation - MRSA negative - d/c vanc to rocephin, f/u Cx COPD exacerbation - encourage nebulizer use, steroids completed. Else see resident documentation as noted. Subjective No acute events overnight. Remains afebrile with VS stable/WNL. Adequate UOP. Able to ambulate around the room and go to the bathroom without issues. Denies fevers/chills, fatigue, shortness of breath, chest pain, abdominal pain, N/V, leg swelling. Review of Systems Constitutional: as per Subjective / HPI Respiratory: as per Subjective / HPI Cardiovascular: as per Subjective / HPI Gastrointestinal: as per Subjective / HPI Genitourinary: no dysuria and no difficulty urinating Physical Exam Constitutional: WD/WN, vitals as above no acute distress Eyes: PERRL, conjunctivae normal, anicteric sclerae Neck: normal visual inspection Respiratory: normal respiratory effort, lungs clear to auscultation Cardiovascular: Rate/Rhythm: regular rate; + abnormal rhythm Vessels: no JVD Extremities: no edema Gastrointestinal (Abdomen): normal bowel sounds, soft, nontender, no hepatosplenomegaly Skin: no rashes, warm and dry Psychiatric: A+Ox3, euthymic affect Lymphatic: no cervical lymphadenopathy Results & Data Results & Data ([facility]) Vital Signs (Past 12 Hours) Vital Signs Temp Pulse Pulse Resp BP BP Pulse Ox 01/11/20 11:03 101 H 16 98 01/11/20 10:51 36.4 C L 62 19 161/82 H 98 01/11/20 07:59 36.9 C 81 19 125/76 95 01/11/20 07:23 52 L 16 98 01/11/20 07:00 82 01/11/20 03:34 36.4 C L 60 18 114/70 97 CBC w Diff Results Results CBC w Diff: RBC 4.40 M/uL (4.7-6.1) L 01/11/20 WBC 18.53 K/uL (4.8-10.8) H 01/11/20 Hgb 11.1 g/dL (14.0-18.0) L 01/11/20 Hct 35.6 % (42-52) L 01/11/20 MCV 80.9 fL (80-100) 01/11/20 MCH 25.2 pg (25-34) 01/11/20 MCHC 31.2 g/dL (32-36) L 01/11/20 RDW Standard Deviation 48.6 fL (36.4-46.3) H 01/11/20 RDW Coefficient of Variation 16.5 % (11.5-14.5) H 01/11/20 Plt Count 239 K/uL (130-400) 01/11/20 MPV 9.3 fL (7.4-10.4) 01/11/20 Neutrophils (%) (Auto) 88.4 % 01/11/20 Lymphocytes (%) (Auto) 5.3 % 01/11/20 Monocytes # (Auto) 1.02 K/uL (0.11-0.59) H 01/11/20 Eosinophils # (Auto) 0.07 K/uL (0-0.5) 01/11/20 Immature Granulocyte % (Auto) 0.3 % 01/11/20 Neutrophils # (Auto) 16.39 K/uL (1.4-6.5) H 01/11/20 Lymphocytes # (Auto) 0.99 K/uL (1.2-3.4) L 01/11/20 Monocytes # (Auto) 1.02 K/uL (0.11-0.59) H 01/11/20 Eosinophils # (Auto) 0.07 K/uL (0-0.5) 01/11/20 Basophils # (Auto) 0.01 K/uL (0-0.2) 01/11/20 Immature Granulocyte # (Auto) 0.05 K/uL (0.00-0.02) H 01/11/20 Chemistry (BMP) Results BMP Results: Sodium 139 mmol/L (136-145) 01/11/20 Potassium 4.1 mmol/L (3.5-5.1) 01/11/20 Chloride 107 mmol/L (98-107) 01/11/20 BUN 22 mg/dl (7-18) H 01/11/20 Creatinine 0.93 mg/dl (0.6-1.4) 01/11/20 Glucose 90 mg/dl (70-99) 01/11/20 Resident Activity Tracking Resident Involvement: Resident Care Provided Care Provided: Adult Hospital Medicine (1) BPH (benign prostatic hyperplasia) Lower urinary tract symptom presence: symptoms absent Qualified Code(s): N40.0 - Benign prostatic hyperplasia without lower urinary tract symptoms (2) COPD (chronic obstructive pulmonary disease) COPD type: unspecified COPD Qualified Code(s): J44.9 - Chronic obstructive pulmonary disease, unspecified (3) GERD (gastroesophageal reflux disease) Esophagitis presence: without esophagitis Qualified Code(s): K21.9 - Gastro- esophageal reflux disease without esophagitis
--- NOTE | 2020-01-11 17:16 | XCELERA ---
[id number]
[2020-01-11] MEDS: TAMSULOSIN HCL 0.4 MG CAP PO SCH (20:49)
[2020-01-11] MEDS: FINASTERIDE 5 MG TAB PO SCH (20:49)
[2020-01-11] MEDS: ATORVASTATIN 40 MG TAB PO SCH (20:50)
[2020-01-12] MEDS ORDERED: VANCOMYCIN TROUGH ONE ×2 (03:30→09:30)
[2020-01-12 07:45] LABS: Basophils # (auto) 0.02 K/uL (0-0.2); Basophils % (auto) 0.2 %; Eosinophils % (auto) 1.9 %; Hematocrit (blood only) 35.7 % (42-52); Hemoglobin 11.3 g/dL (14.0-18.0); Immature Granulocytes # (auto) 0.03 K/uL (0.00-0.02); Immature Granulocytes % (auto) 0.3 %; Lymphocytes % (auto) 8.5 %; Mean Corpuscular Hemoglobin 25.4 pg (25-34); Mean Corpuscular Hgb Conc 31.7 g/dL (32-36); Mean Corpuscular Volume 80.2 fL (80-100); Mean Platelet Volume 9.1 fL (7.4-10.4); Monocytes # (auto) 0.62 K/uL (0.11-0.59); Monocytes % (auto) 5.8 %; Neutrophils # (auto) 8.86 K/uL (1.4-6.5); Neutrophils % (auto) 83.3 %; Platelet Count 234 K/uL (130-400); RDW Coefficient of Variation 16.7 % (11.5-14.5); RDW Standard Deviation 48.7 fL (36.4-46.3); Red Blood Count 4.45 M/uL (4.7-6.1); White Blood Count 10.63 K/uL (4.8-10.8)
[2020-01-12] MEDS: CLOPIDOGREL BISULFATE 75 MG TAB PO SCH (08:01)
[2020-01-12] MEDS: carvediloL 3.125 MG TAB PO SCH ×2 (08:01→20:45)
[2020-01-12] MEDS: PANTOprazole 40 MG TAB PO SCH (08:01)
[2020-01-12] MEDS: BUMETANIDE 1 MG TAB PO SCH (08:01)
[2020-01-12] MEDS: POTASSIUM CHLORIDE 20 MEQ TABCR PO SCH (08:01)
[2020-01-12] MEDS: APIXABAN 5 MG TABLET PO SCH ×2 (08:01→20:45)
[2020-01-12 08:14] LABS: Calcium 8.2 mg/dl (8.5-10.1); Creatinine Clr Calc Pharmacy 56.6 ml/min; Est GFR (African American) 81.5; Est GFR (Non-African American) 70.3
[2020-01-12] MEDS: cefTRIAXone SODIUM 2,000 MG in DEXTROSE 5% 50 ML IV SCH (08:37)
[2020-01-12] MEDS ORDERED: POLYETHYLENE (MIRALAX) 17 GM PACK PO PRN (08:59)
--- NOTE | 2020-01-12 16:13 | Hospitalist Progress Note ---
Date of Service January 12, 2020 Assessment & Plan (1) Gram-positive bacteremia: Mr. Mckinney is an 89 yo male with h/o diastolic HF, COPD and atrial flutter who was admitted on 01/09/2020 for what was initially thought to be COPD exacerbation and fever secondary to viral gastroenteritis. Was found to have Gram-positive bacteremia on 01/09. Gram-positive bacteremia - currently afebrile with no clear source of infection, improving with abx - WBC 18.5 --> 10.4 today - CXR negative for signs of infection - MRSA negative - continue Ceftriaxone 2g IV daily - Tylenol PRN - prelim blood cx positive for Staphylococcus species - final Blood culture Chronic Obstructive Pulmonary Disease - s/p Solumedrol 60 mg IV x1 - doing well with no symptoms of wheezing or increased work of breathing - continue duo nebs PRN Chronic Diastolic (Congestive) Heart Failure - continue bumetanide 1 mg PO QAM - TTE results consistent with chronic diastolic heart failure diagnosis - continue to monitor daily weights with I/O Constipation - hard BM x2 and suprapubic distension - Ordered Miralax PRN Chronic Pleural Efusion - present since sepsis episode in 2018 - stable Atrial flutter - continue Apixaban 5 mg PO BID - continue Carvedilol 3.125 mg PO BID GERD - continue Protonix 40 mg PO QAM while inpatient Nausea/Vomiting, resolved - nausea/vomiting with diarrhea and orthostatic hypotension for several days leading up to current hospitalization - symptoms resolved as of 01/09 - secondary to acute viral gastroenteritis vs bacteremia - PRN Zofran BPH - spontaneously voiding with no symptoms of urinary retention - continue Flomax 0.4 mg PO QHS Elevated Troponin - appears to be at his baseline Hyperlipidemia - continue Atorvastatin 40 mg PO QHS Diet: Heart Healthy, no IVFs DVT Prophylaxis: Apixaban 5 mg PO BID Code Status: DNR/DNI Disposition: Med/surg with tele, CM is on board and is in process of setting of transfer to [facility] with continued management of IV antibiotics, before returning home (2) Elevated troponin: (3) Chronic pleural effusion: (4) Chronic diastolic (congestive) heart failure: (5) Nausea & vomiting: (6) COPD (chronic obstructive pulmonary disease): (7) BPH (benign prostatic hyperplasia): (8) GERD (gastroesophageal reflux disease): (9) Atrial flutter: Admission and Anticipated Discharge Date Admission Date: January 09, 2020 Supervising Physician Co-Signing Physician Notes Attending attestation Pt seen and examined in concert with Dr. Sanchez. In agreement with the documented findings as noted in the resident documentation with any exceptions or additions as noted here. No acute complaints. No h/o abn colonoscopy, last was > 10 years ago. On examination, S1/S2 nl RRR no MCG. CTAB. Abd NT/ND BS+ve +ve BCx - Staph without further speciation on BCx, MRSA negative - continue rocephin COPD exacerbation - encourage nebulizer use, steroids completed. Else see resident documentation as noted. Subjective No acute events overnight. Remains afebrile with VS stable/WNL. Adequate UOP. Able to ambulate around the room and go to the bathroom without issues. Reports constipation with 2 hard bowel movements in the last 24 hours. Denies fevers/chills, fatigue, shortness of breath, chest pain, abdominal pain, N/V, leg swelling. Review of Systems Constitutional: as per Subjective / HPI Respiratory: as per Subjective / HPI Cardiovascular: as per Subjective / HPI Gastrointestinal: as per Subjective / HPI Physical Exam Constitutional: WD/WN, vitals as above no acute distress Eyes: PERRL, conjunctivae normal, anicteric sclerae Neck: trachea midline, no thyromegaly normal visual inspection Respiratory: normal respiratory effort, lungs clear to auscultation Cardiovascular: Rate/Rhythm: regular rate; + abnormal rhythm Vessels: no JVD Extremities: normal capillary refill; no edema Gastrointestinal (Abdomen): Inspection/Auscultation: + abdomen distended (mild suprapubic distension) and normal bowel sounds Percussion/Palpation: abdomen nontender and no guarding Musculoskeletal: no cyanosis or clubbing, extremities motor strength 5/5 Skin: no rashes, warm and dry Psychiatric: A+Ox3, euthymic affect Lymphatic: no cervical lymphadenopathy Results & Data Results & Data ([facility]) Vital Signs (Past 12 Hours) Vital Signs Temp Pulse Resp BP Pulse Ox 01/12/20 16:00 36.6 C 63 18 129/74 95 01/12/20 11:20 36.4 C L 77 19 131/77 92 01/12/20 07:57 36.5 C 85 19 133/78 95 Laboratory Results 01/08 Blood Cx prelim: Staphylococcus species x2 01/10 Blood Cx: no growth after 24 hours x2 Diagnostic Findings TTE on 01/10: mild concentric LVH and grade III Diastolic Dysfunction, EF 55-60% CBC Results Results Complete Blood Count Results: RBC 4.45 M/uL (4.7-6.1) L 01/12/20 WBC 10.63 K/uL (4.8-10.8) 01/12/20 Hgb 11.3 g/dL (14.0-18.0) L 01/12/20 Hct 35.7 % (42-52) L 01/12/20 Plt Count 234 K/uL (130-400) 01/12/20 Chemistry ([facility]) Results BMP Results: Sodium 141 mmol/L (136-145) 01/12/20 Potassium 4.0 mmol/L (3.5-5.1) 01/12/20 Chloride 110 mmol/L (98-107) H 01/12/20 BUN 21 mg/dl (7-18) H 01/12/20 Creatinine 0.96 mg/dl (0.6-1.4) 01/12/20 Glucose 88 mg/dl (70-99) 01/12/20 Resident Activity Tracking Resident Involvement: Resident Care Provided Care Provided: Adult Hospital Medicine (1) BPH (benign prostatic hyperplasia) Lower urinary tract symptom presence: symptoms absent Qualified Code(s): N40.0 - Benign prostatic hyperplasia without lower urinary tract symptoms (2) COPD (chronic obstructive pulmonary disease) COPD type: unspecified COPD Qualified Code(s): J44.9 - Chronic obstructive pulmonary disease, unspecified (3) GERD (gastroesophageal reflux disease) Esophagitis presence: without esophagitis Qualified Code(s): K21.9 - Gastro- esophageal reflux disease without esophagitis
[2020-01-12] MEDS: TAMSULOSIN HCL 0.4 MG CAP PO SCH (20:45)
[2020-01-12] MEDS: ATORVASTATIN 40 MG TAB PO SCH (20:45)
[2020-01-12] MEDS: FINASTERIDE 5 MG TAB PO SCH (20:45)
[2020-01-13 07:45] LABS: Basophils # (auto) 0.03 K/uL (0-0.2); Basophils % (auto) 0.4 %; Eosinophils # (auto) 0.18 K/uL (0-0.5); Eosinophils % (auto) 2.5 %; Hemoglobin 11.7 g/dL (14.0-18.0); Immature Granulocytes # (auto) 0.02 K/uL (0.00-0.02); Immature Granulocytes % (auto) 0.3 %; Lymphocytes # (auto) 0.84 K/uL (1.2-3.4); Lymphocytes % (auto) 11.8 %; Mean Corpuscular Hemoglobin 25.4 pg (25-34); Mean Corpuscular Hgb Conc 31.6 g/dL (32-36); Mean Corpuscular Volume 80.3 fL (80-100); Mean Platelet Volume 9.1 fL (7.4-10.4); Monocytes # (auto) 0.38 K/uL (0.11-0.59); Monocytes % (auto) 5.4 %; Neutrophils # (auto) 5.64 K/uL (1.4-6.5); Neutrophils % (auto) 79.6 %; Platelet Count 237 K/uL (130-400); RDW Coefficient of Variation 16.8 % (11.5-14.5); Red Blood Count 4.61 M/uL (4.7-6.1); White Blood Count 7.09 K/uL (4.8-10.8)
[2020-01-13 08:07] LABS: BUN Creatinine Ratio 22.4 (10-20); Calcium 8.3 mg/dl (8.5-10.1); Creatinine Clr Calc Pharmacy 61.8 ml/min; Est GFR (African American) 88.9; Est GFR (Non-African American) 76.7
--- NOTE | 2020-01-13 08:07 | Hospitalist Progress Note ---
Date of Service January 13, 2020 Assessment & Plan (1) Gram-positive bacteremia: Mr. Mckinney is an 89 yo male with h/o diastolic HF, COPD and atrial flutter who was admitted on 01/09/2020 for what was initially thought to be COPD exacerbation and fever secondary to viral gastroenteritis. Was found to have Gram-positive bacteremia on 01/09. Gram-positive bacteremia - currently afebrile with no clear source of infection, improving with abx - leukocytosis resolved - CXR negative for signs of infection - MRSA negative - continue Ceftriaxone 2g IV daily for 10 more days - US-guided IV ordered for extended use given 10 days of abx - Tylenol PRN - prelim blood cx positive for Staphylococcus species - follow final Blood culture Chronic Obstructive Pulmonary Disease - s/p Solumedrol 60 mg IV x1 - doing well with no symptoms of wheezing or increased work of breathing - continue duo nebs PRN Chronic Diastolic (Congestive) Heart Failure - continue bumetanide 1 mg PO QAM - TTE results consistent with chronic diastolic heart failure diagnosis - continue to monitor daily weights with I/O Constipation - hard BM x2 and suprapubic distension yesterday - Miralax PRN Chronic Pleural Efusion - present since sepsis episode in 2018 - stable Atrial flutter - continue Apixaban 5 mg PO BID - continue Carvedilol 3.125 mg PO BID GERD - continue Protonix 40 mg PO QAM while inpatient Nausea/Vomiting, resolved - nausea/vomiting with diarrhea and orthostatic hypotension for several days leading up to current hospitalization - symptoms resolved as of 01/09 - secondary to acute viral gastroenteritis vs bacteremia - PRN Zofran BPH - spontaneously voiding with no symptoms of urinary retention - continue Flomax 0.4 mg PO QHS Elevated Troponin - appears to be at his baseline Hyperlipidemia - continue Atorvastatin 40 mg PO QHS Diet: Heart Healthy, no IVFs DVT Prophylaxis: Apixaban 5 mg PO BID Code Status: DNR/DNI Disposition: Med/surg with tele, CABRERA is on board and patient will have a bed ready at [facility] for discharge tomorrow for continued management of IV antibiotics and physical rehabilitation s/p acute infection (2) Elevated troponin: (3) Chronic pleural effusion: (4) Chronic diastolic (congestive) heart failure: (5) Nausea & vomiting: (6) COPD (chronic obstructive pulmonary disease): (7) BPH (benign prostatic hyperplasia): (8) GERD (gastroesophageal reflux disease): (9) Atrial flutter: Admission and Anticipated Discharge Date Admission Date: January 09, 2020 Supervising Physician Co-Signing Physician Notes Attending attestation Pt seen and examined in concert with Dr. Sanchez. In agreement with the documented findings as noted in the resident documentation with any exceptions or additions as noted here. No acute complaints. On examination, S1/S2 nl RRR no MCG. CTAB. Abd NT/ND BS+ve +ve BCx - Staph without further speciation on BCx, MRSA negative - continue rocephin to complete IV course (will need access) COPD exacerbation - encourage nebulizer use, steroids completed. Else see resident documentation as noted. Subjective No acute events overnight. Remains afebrile with VS stable/WNL. Adequate UOP. BMx1 this morning, soft and brown. Able to ambulate around the room and go to the bathroom without issues. Denies fevers/chills, fatigue, shortness of breath, chest pain, abdominal pain, N/V, leg swelling. Review of Systems Constitutional: as per Subjective / HPI Respiratory: as per Subjective / HPI Cardiovascular: as per Subjective / HPI Gastrointestinal: as per Subjective / HPI Physical Exam Constitutional: WD/WN, vitals as above no acute distress Eyes: PERRL, conjunctivae normal, anicteric sclerae Neck: trachea midline, no thyromegaly normal visual inspection Respiratory: normal respiratory effort, lungs clear to auscultation Cardiovascular: Rate/Rhythm: regular rate; + abnormal rhythm Vessels: no JVD Extremities: normal capillary refill; no edema Gastrointestinal (Abdomen): normal bowel sounds, soft, nontender, no hepatosplenomegaly Inspection/Auscultation: + abdomen distended (mild supra pubic distension) and normal bowel sounds Percussion/Palpation: abdomen nontender and no guarding Musculoskeletal: no cyanosis or clubbing, extremities motor strength 5/5 Skin: no rashes, warm and dry Psychiatric: A+Ox3, euthymic affect Lymphatic: no cervical lymphadenopathy Results & Data Results & Data ([facility]) Vital Signs (Past 12 Hours) Vital Signs Temp Pulse Resp BP BP Pulse Ox 01/13/20 07:16 36.4 C L 75 18 134/76 95 01/13/20 03:40 36.4 C L 61 16 117/67 93 01/12/20 23:50 36.4 C L 59 L 18 112/63 93 CBC Results Results Complete Blood Count Results: RBC 4.61 M/uL (4.7-6.1) L 01/13/20 WBC 7.09 K/uL (4.8-10.8) 01/13/20 Hgb 11.7 g/dL (14.0-18.0) L 01/13/20 Hct 37.0 % (42-52) L 01/13/20 Plt Count 237 K/uL (130-400) 01/13/20 Chemistry ([facility]) Results BMP Results: Sodium 140 mmol/L (136-145) 01/13/20 Potassium 4.0 mmol/L (3.5-5.1) 01/13/20 Chloride 110 mmol/L (98-107) H 01/13/20 BUN 20 mg/dl (7-18) H 01/13/20 Creatinine 0.88 mg/dl (0.6-1.4) 01/13/20 Glucose 94 mg/dl (70-99) 01/13/20 Resident Activity Tracking Resident Involvement: Resident Care Provided Care Provided: Adult [facility] Medicine (1) BPH (benign prostatic hyperplasia) Lower urinary tract symptom presence: symptoms absent Qualified Code(s): N40.0 - Benign prostatic hyperplasia without lower urinary tract symptoms (2) COPD (chronic obstructive pulmonary disease) COPD type: unspecified COPD Qualified Code(s): J44.9 - Chronic obstructive pulmonary disease, unspecified (3) GERD (gastroesophageal reflux disease) Esophagitis presence: without esophagitis Qualified Code(s): K21.9 - Gastro- esophageal reflux disease without esophagitis
[2020-01-13] MEDS ORDERED: POLYETHYLENE (MIRALAX) 17 GM PACK PO PRN (08:28)
[2020-01-13] MEDS: APIXABAN 5 MG TABLET PO SCH ×2 (08:51→21:09)
[2020-01-13] MEDS: POTASSIUM CHLORIDE 20 MEQ TABCR PO SCH (08:51)
[2020-01-13] MEDS: PANTOprazole 40 MG TAB PO SCH (08:51)
[2020-01-13] MEDS: carvediloL 3.125 MG TAB PO SCH ×2 (08:51→21:09)
[2020-01-13] MEDS: CLOPIDOGREL BISULFATE 75 MG TAB PO SCH (08:51)
[2020-01-13] MEDS: BUMETANIDE 1 MG TAB PO SCH (08:51)
[2020-01-13] MEDS: cefTRIAXone SODIUM 2,000 MG in DEXTROSE 5% 50 ML IV SCH (08:52)
[2020-01-13] MEDS: FINASTERIDE 5 MG TAB PO SCH (21:09)
[2020-01-13] MEDS: TAMSULOSIN HCL 0.4 MG CAP PO SCH (21:09)
[2020-01-13] MEDS: ATORVASTATIN 40 MG TAB PO SCH (21:09)
[2020-01-14 07:12] LABS: Basophils # (auto) 0.02 K/uL (0-0.2); Basophils % (auto) 0.3 %; Eosinophils % (auto) 2.6 %; Hematocrit (blood only) 37.3 % (42-52); Hemoglobin 11.7 g/dL (14.0-18.0); Immature Granulocytes # (auto) 0.03 K/uL (0.00-0.02); Immature Granulocytes % (auto) 0.4 %; Lymphocytes % (auto) 13.1 %; Mean Corpuscular Hemoglobin 25.2 pg (25-34); Mean Corpuscular Hgb Conc 31.4 g/dL (32-36); Mean Corpuscular Volume 80.4 fL (80-100); Monocytes # (auto) 0.61 K/uL (0.11-0.59); Neutrophils # (auto) 5.76 K/uL (1.4-6.5); Neutrophils % (auto) 75.6 %; Platelet Count 254 K/uL (130-400); RDW Coefficient of Variation 16.7 % (11.5-14.5); RDW Standard Deviation 48.3 fL (36.4-46.3); Red Blood Count 4.64 M/uL (4.7-6.1); White Blood Count 7.62 K/uL (4.8-10.8)
[2020-01-14 07:44] LABS: BUN Creatinine Ratio 16.7 (10-20); Calcium 8.1 mg/dl (8.5-10.1); Creatinine Clr Calc Pharmacy 58.5 ml/min; Est GFR (African American) 84.7; Potassium 4.1 mmol/L (3.5-5.1)
[2020-01-14] MEDS: APIXABAN 5 MG TABLET PO SCH (08:32)
[2020-01-14] MEDS: carvediloL 3.125 MG TAB PO SCH (08:33)
[2020-01-14] MEDS: BUMETANIDE 1 MG TAB PO SCH (08:33)
[2020-01-14] MEDS: CLOPIDOGREL BISULFATE 75 MG TAB PO SCH (08:33)
[2020-01-14] MEDS: PANTOprazole 40 MG TAB PO SCH (08:33)
[2020-01-14] MEDS: POTASSIUM CHLORIDE 20 MEQ TABCR PO SCH (08:33)
[2020-01-14] MEDS ORDERED: cefTRIAXone SODIUM 2,000 MG in DEXTROSE 5% 50 ML IV SCH (09:00)
--- NOTE | 2020-01-14 17:07 | Discharge Summary ---
Date of Service January 14, 2020 Admission HPI Per Admitting Provider Jayme Mckinney is an 89-year-old male who presents to the ER with shortness of breath, fever, vomiting episode, generalized weakness. He reports getting gradually worse over the last 2 days. He feels this improves with his inhalers. No worsening of his breathing with IV fluids given in ER. No abdominal pain, change in bowels, melena, bright red blood in stool. His main complaint is his shortness of breath, no hemoptysis. He does not weigh himself at home so unknown if his weight is changed. He reports his leg swelling is at his baseline and actually thinks he is been getting more dehydrated recently due to vomiting. Fever mentioned in ER note however he denies this to me but does note he is feeling chilly in the room currently. He denies any chest pain, orthopnea, PND, palpitations, presyncope or syncope. No longer feeling nauseous in the ER after ondansetron given. Back in June he had a similar illness which resolved without antibiotics despite elevated white blood count. Suspected to be due to viral gastroenteritis at that time. Admission Exam Per Admitting Provider Constitutional: + frail appearing; + not well nourished and no acute distress Eyes: + anicteric sclerae; normal pupil size ENMT: external ear and nose normal, oropharynx normal Cardiovascular: Rate/Rhythm: regular rate and regular rhythm Heart Sounds: no murmur Vessels: normal peripheral pulses; no JVD Extremities: normal capillary refill and + pedal edema (2+ to knees b/l, patient reports at baseline); no calf tenderness Gastrointestinal (Abdomen): normal bowel sounds, soft, nontender, no hepatosplenomegaly Musculoskeletal: no cyanosis or clubbing, extremities motor strength 5/5 Skin: + turgor decreased (Upper extremities, otherwise moist mucous membranes) Neurologic: moves all extremities and awake; not confused Psychiatric: A+Ox3, euthymic affect Genitourinary: no CVA tenderness Lymphatic: no cervical or axillary lymphadenopathy Principal Diagnosis Coag-negative Staphylococcus Bacteremia Discharge Exam Constitutional: WD/WN, vitals as above no acute distress Eyes: PERRL, conjunctivae normal, anicteric sclerae Neck: trachea midline, no thyromegaly normal visual inspection Respiratory: normal respiratory effort, lungs clear to auscultation Cardiovascular: Rate/Rhythm: regular rate; + abnormal rhythm Vessels: no JVD Extremities: normal capillary refill; no edema Gastrointestinal (Abdomen): normal bowel sounds, soft, nontender, no hepatosplenomegaly Inspection/Auscultation: no abdominal distension and normal bowel sounds Percussion/Palpation: abdomen nontender and no guarding Musculoskeletal: no cyanosis or clubbing, extremities motor strength 5/5 Skin: no rashes, warm and dry Psychiatric: A+Ox3, euthymic affect Lymphatic: no cervical lymphadenopathy Discharge Data Allergies Allergy/AdvReac Type Severity Reaction Status Date / Time aspirin AdvReac Intermediate GI Verified 01/09/20 17:08 ULCERATION- WHEN TAKEN WITH COUMADIN black pepper AdvReac Mild Prostate Verified 01/09/20 17:08 problems lisinopril AdvReac Mild Cough Verified 01/09/20 17:09 Sulfa (Sulfonamide AdvReac Unknown "SULFA Verified 07/29/19 09:57 Antibiotics) DRUGS": HAS TOLERATED LASIX IN PAST Consultations 01/09/20 17:50 ED Decision to Admit Stat Hospital Course (1) Gram-positive bacteremia: Mr. Mckinney is an 89 yo male with h/o diastolic HF, COPD and atrial flutter who was admitted on 01/09/2020 for what was initially thought to be COPD exacerbation and fever secondary to viral gastroenteritis. He was initially treated with IV Solumedrol 60 mg IV x1 and Azithromycin for COPD exacerbation, which quickly led to no respiratory distress or wheezing. Did not need PRN Duo- nebs while hospitalized. No symptoms of nausea, vomiting or diarrhea while in the hospital, but he was found to have Gram-positive bacteremia on 01/09 and was started on Vancomycin x1 and was transitioned to Ceftriaxone 2 g IV daily on 01/10. His leukocytosis resolved with antibiotic treatment and he remained in stable condition. He was discharged on 01/14/2020 to [facility] to finish his IV Rocephin for a total of 14 days of treatment (01/10-01/23). Total Time Total Time Spent Total Time Spent (In Minutes): 30 minutes Total Time Includes: Examination of the Patient, Discharge Planning and Medication Reconciliation Discharge Plan Discharge Items Patient Disposition: Home - Self-Care Reason For Visit: ACUTE RESPIRATORY FAILURE WITH HYPOXIA Discharge Diagnosis: Coag-negative Staphylococcus Bacteremia Condition on Discharge: Good Activity: Per Instructions section Non-emergency contact: Primary Care Provider Call non-emergency contact if: you have any medication questions, your symptoms worsen and you have a fever Follow-up/Referrals: Sugey Daley PA-C [Outside Practitioners] - (PLEASE CALL AND MAKE A FOLLOW UP APT) Diet: Heart Healthy Addtl Attending Provider Instructions: Mr. Mckinney is an 89 yo male with h/o diastolic HF, COPD and atrial flutter who was admitted on 01/09/2020 for what was initially thought to be COPD exacerbation and fever secondary to viral gastroenteritis. Was found to have Gram-positive bacteremia on 01/09. Gram-positive bacteremia - currently afebrile with no clear source of infection, improving with abx - leukocytosis resolved - MRSA negative - Continue Rocephin 2 mg IV for 8 more days, starting on 01/14 (total of 14 days of treatment) Chronic Obstructive Pulmonary Disease - s/p Solumedrol 60 mg IV x1 - doing well with no symptoms of wheezing or increased work of breathing - continue duo nebs PRN Chronic Diastolic (Congestive) Heart Failure - continue bumetanide 1 mg PO QAM - TTE results consistent with chronic diastolic heart failure diagnosis - continue to monitor daily weights with I/O Chronic Pleural Efusion - present since sepsis episode in 2017 - stable Atrial flutter - continue Apixaban 5 mg PO BID - continue Carvedilol 3.125 mg PO BID GERD - continue Omeprazole 20 mg PO QAM Nausea/Vomiting, resolved - nausea/vomiting with diarrhea and orthostatic hypotension for several days leading up to current hospitalization - symptoms resolved as of 01/09 - secondary to acute viral gastroenteritis vs bacteremia - PRN Zofran BPH - spontaneously voiding with no symptoms of urinary retention - continue Flomax 0.4 mg PO QHS Hyperlipidemia - continue Atorvastatin 40 mg PO QHS Pending Studies at Discharge: No Stand-Alone Forms: My Personal [employer], Smoking Cessation Medications and DC Order Prescriptions: New ceftriaxone 2 gram recon soln 2 g IV DAILY 10 Days Qty: 10 RF: 0 Continued Eliquis 5 mg tablet 5 mg PO BID Qty: 180 RF: 3 carvedilol 6.25 mg tablet 6.25 mg PO BID Qty: 180 RF: 1 bumetanide 2 mg tablet 2 mg PO QAM RF: 0 atorvastatin 40 mg Tablet 40 mg PO QPM RF: 0 clopidogrel [Plavix] 75 mg Tablet 75 mg PO QAM RF: 0 tamsulosin [Flomax] 0.4 mg Capsule 0.4 mg PO QPM RF: 0 omeprazole 20 mg Capsule,Delayed Release(Dr/Ec) 20 mg PO QAM RF: 0 finasteride 5 mg Tablet 5 mg PO QPM RF: 0 nitroglycerin 0.4 mg tablet, sublingual 0.4 mg sublingual DIRECTED PRN (Reason: Chest Pain) RF: 0 potassium chloride [Klor-Con M20] 20 mEq tablet,ER particles/crystals 20 meq PO QAM RF: 0 Combivent Respimat 20-100 mcg/actuation Mist 1 puff INHALATION BID Qty: 4 RF: 0 Discharge Orders: Discharge Order (Routine); Ordered 01/14/20 Ordered By: Red Horner/Other Patient Handouts: Orthostatic Hypotension Admission Data Admit Date/Time: 01/09/20 17:32 Attending Provider: Daren Conn Admit Provider: Compa Xiao Primary Care Provider: PCP,NO Other Providers: Compa Xiao ; [facility] [place] Other Interventions: Discharge Summary Assessment (RN) Last Done: 01/14/20 10:43 Supervising Physician Co-Signing Physician Notes Attending attestation Pt seen and examined in concert with Dr. Sanchez. In agreement with the documented findings as noted in the resident documentation with any exceptions or additions as noted here. No acute complaints. On examination, S1/S2 nl RRR no MCG. CTAB. Abd NT/ND BS+ve +ve BCx - Staph without further speciation on BCx, MRSA negative - continue rocephin to complete IV course with PICC COPD exacerbation - encourage nebulizer use, steroids completed. Else see resident documentation as noted. Resident Activity Tracking Resident Involvement: Resident Care Provided Care Provided: Adult Hospital Medicine
== END 2020-01-14 14:50 | DRG 871 ==
LOC: ED 13:29 → SUATTDRO 17:32 → 2S 17:32